=== PATIENT | male | born 1965 | race Caucasian/White ===

== ENCOUNTER 2024-12-25 23:35 | Inpatient (IN) | payer MEDICARE, MEDICAID, SELFPAY ==
--- NOTE | ~2024-12-25 | CT_ITS ---
CLINICAL HISTORY: Stroke Protocol dysarthria, dizziness CT head without contrast Comparison: CT/FL/SR - BRAIN WO W IV CONTRAST [id number] - 08/04/18 10:41 EDT Findings: Motion artifact present. There is encephalomalacia in the posterior left frontal lobe, unchanged from prior. There has been a previous left craniotomy. No intracranial hemorrhage, mass effect or midline shift. The visualized paranasal sinuses and mastoid air cells are normal. The orbits are unremarkable. No skull fracture. IMPRESSION: 1. No acute intracranial findings, within the limitations of patient motion. This document has been electronically signed by: Viral العلي MD on 12/25/2024 23:51:35
--- NOTE | ~2024-12-25 | CT_ITS ---
CLINICAL HISTORY: Stroke Protocol CT angiography head and neck with contrast. 3D Postprocessing. Comparison: CT/SR - CT HEAD FOR STROKE - 12/25/24 23:[address]/[place]/SR - BRAIN WO W IV CONTRAST [id number] - 08/04/18 10:41 EDT MR - MRI BRAIN WWO [id number] - 11/27/11 00:00 EST Findings: Aortic arch and great vessel origins are patent. There is calcification of the right carotid bulb, but no stenosis. No stenosis of the right internal carotid artery. There is a 20% stenosis of the left internal carotid artery above the carotid bulb. At the level of the carotid bulb. There is also a 20% stenosis at the carotid bulb secondary to calcified plaque. The left vertebral artery is dominant and the right vertebral artery is diminutive. Both vertebral arteries are patent. Intracranial arteries are patent. No aneurysm, dissection, or occlusion. There is an area of encephalomalacia in the posterior left frontal lobe. There is a extra-axial, probably dural-based hyperattenuating lesion which appears to have some enhancement in the area the area of encephalomalacia which measures 1.1 x 1.0 cm. The visualized thyroid gland is unremarkable. No cervical mass or fluid collection. Lung apices clear. No acute fracture. IMPRESSION: 1. 20% stenoses in the bilateral internal carotid arteries. No intracranial large vessel occlusion. 2. Hyperdense extra-axial mass with possible enhancement in the left frontal region, adjacent to the pre-existing area of encephalomalacia. Differential includes meningioma as well as other tumors versus benign dural thickening. Consider follow-up with MRI with and without contrast. This document has been electronically signed by: Viral العلي MD on 12/26/2024 00:48:06
--- NOTE | ~2024-12-25 | MR_ITS ---
CLINICAL HISTORY: Extra-axial mass MR Brain with and without gadolinium Comparison: CT/SR - CT ANGIO HEAD NECK STROKE - 12/25/24 23:[address]/[place]/SR - BRAIN WO W IV CONTRAST [id number] - 08/04/18 10:41 EDT MR - MRI BRAIN WWO [id number] - 11/27/11 00:00 EST Findings: No restricted diffusion. Best visualized on the post gadolinium sequences, there are multiple enhancing dural-based masses on the left. Reference coronal image 99 of series 17, there is an 11 mm mass with subjacent T2 signal abnormality. Reference coronal image 118, there is an 11 mm mass and a 7 mm mass medial to this. Deep to these regions, there is cystic encephalomalacia and gliosis. There is no midline shift or significant mass effect. No hydrocephalus. Orbits appear unremarkable. Paranasal sinuses demonstrate mild mucoperiosteal thickening. Impression: There are 3 small enhancing extra-axial masses along the left frontal dura as detailed above. Subjacent to these regions is cystic encephalomalacia and gliosis. The degree of this chronic change is only slightly increased from a 2012 study. Correlation with any prior treatment. This document has been electronically signed by: Farhat Lewis MD on 12/26/2024 12:35:37
--- NOTE | 2024-12-25 23:35 | ECG_ITS ---
Test Reason : STROKE PRTCL Blood Pressure : */* mmHG Vent. Rate : 111 BPM Atrial Rate : 111 BPM P-R Int : 182 ms QRS Dur : 76 ms QT Int : 394 ms P-R-T Axes : 30 55 48 degrees QTcB Int : 535 ms Poor data quality Possible Sinus tachycardia with Septal infarct , age undetermined Abnormal ECG When compared with ECG of 09-Mar-2019 15:16, Poor data quality in current ECG precludes serial comparison Referred By: Samuel Choi Electronically Signed By: ALESSANDRO KILGORE MD
[2024-12-25 23:36] VITALS: BP 148/81; PULSE 82; O2SAT 94
[2024-12-25 23:59] VITALS: BP 133/73; PULSE 82; RESP 13; TEMP 36.4; O2SAT 94
[2024-12-25] MEDS: iohexoL 350 MG/ML 100 ML INFUS..BTL 70 ML IV (23:59)
[2024-12-26] VITALS (7 sets, daily range): BP systolic 99–138; BP diastolic 54–79; PULSE 74–82; RESP 12–17; TEMP 36.4–36.8; O2SAT 93–97; BMI 39.5
[2024-12-26 00:08] LABS: Glucose, Whole Blood 187 mg/dL (60-115)
[2024-12-26 00:21] LABS: Basophils Percent Auto 0.7 % (0-2); Eosinophils Absolute Auto 0.1 X10*3/uL (0.0-0.4); Eosinophils Percent Auto 2.2 % (0-4); Hematocrit 39.2 % (42.0-52.0); Hemoglobin 13.8 g/dl (14.0-18.0); Imm Gran Abs Auto 0.02 X10*3/uL (0.00-0.03); Imm Gran Pct Auto 0.4 % (0.0-0.4); Lymphocytes Absolute Auto 2.1 X10*3/uL (1.2-4.9); Lymphocytes Percent Auto 38.3 % (20-40); MANUAL DIFF FLAG NO; Mean Corpuscular HGB Conc 35.2 g/dl (31.0-36.0); Mean Corpuscular Hemoglobin 32.7 pg (27.0-33.0); Mean Corpuscular Volume 92.9 fL (80.0-98.0); Mean Platelet Volume 9.8 fL (9.4-12.4); Monocytes Absolute Auto 0.4 X10*3/uL (0.1-1.2); Monocytes Percent Auto 7.1 % (2-11); Neutrophils Absolute Auto 2.8 x10*3/uL (2.0-8.3); Neutrophils Percent Auto 51.3 % (45-73); Platelet Count 229 X10*3/uL (160-400); Red Blood Count 4.22 X10*6/uL (4.60-5.80); Red Cell Distribution Width 12.4 % (11.0-16.0); White Blood Count 5.5 X10*3/uL (4.8-10.8)
--- NOTE | 2024-12-26 00:24 | ED.NEUROSD ---
HPI - Neuro Symptoms/Deficit General Chief Complaint: Stroke Stated Complaint: stroke alert, sudden onset dizzy, numbness Source: patient and EMS Mode of arrival: EMS Limitations: no limitations History of Present Illness ED Provider: HPI Narrative: Patient is 59 years old with history of DVT on Eliquis history of alcohol abuse, brain tumor status post resection 22 years ago, seizures disorder on Dilantin and carbamazepine came from [facility] for frequent fall and sudden onset of dizziness which started 1929 associated with garbled speech no other focal deficits patient has says since 11/03 patient has been unsteady and been falling more often but today got worse staff noticed patient was has a garbled speech patient does get seizure almost once or twice a month Related Data Allergies Allergy/AdvReac Type Severity Reaction Status Date / Time No Known Allergies Allergy Verified 12/26/24 00:01 Review of Systems Review of Systems: Yes all other systems are reviewed and are negative PMFSH Past Medical History Medical History DVT (deep venous thrombosis) Major depressive disorder Epilepsy Alcohol abuse Social History Social History Patient Tobacco Use Status: Current everyday Tobacco user Smoked in Last 30 Days: Yes Use of substances other than those prescribed or required for medical reasons: No Advance Directives: No Advance Directives Information Provided: Yes Nutrition Risks: No Nutritional Risk Physical Exam Vital Signs: Vital Signs: Last Vital Signs Temp 98.3 F 12/26/24 06:08 Pulse 75 12/26/24 06:08 Resp 12 12/26/24 06:08 BP 125/73 12/26/24 06:08 Pulse Ox 97 12/26/24 06:08 O2 Del Method Room Air 12/26/24 06:08 BMI result Body Mass Index 39.5 Appearance: Alert. Oriented X3. No acute distress. Eyes: PERRLA, + Nystagmus ENT: Pharynx normal. Oral Mucosa moist Neck: Normal inspection. Neck supple. CVS: Normal heart rate and rhythm. Pulses normal. Respiratory: No respiratory distress. Equal air entry bilateral, no wheezing/rales/rhonchi Abdomen: Soft and nontender. Bowel sounds are present, no mass palpable, no CVA tenderness Skin: Skin warm and dry. Normal skin color. Normal skin turgor. Extremities: No lower extremity edema. No calf tenderness Neuro: Oriented X 3. No motor deficit. No sensory deficit., cranial nerves II-XII intact intention tremor++ Medications Administered Discontinued Medications Generic Name Dose Route Start Last Admin Trade Name Charla PRN Reason Stop Dose Admin Lactated Ringer's 500 mls @ 500 mls/hr 12/26/24 02:45 12/26/24 06:10 Lr IV 12/26/24 03:44 Infused .Q1H OTONIEL Infusion Thiamine HCl 200 mg/ Sodium 102 mls @ 204 mls/hr 12/26/24 02:43 12/26/24 04:55 Chloride IV 12/26/24 03:12 Infused ONCE ONE Infusion Iohexol 70 ml 12/25/24 23:58 12/25/24 23:59 Iohexol 350 Mg/Ml 100 Ml Infus..Btl IV 12/25/24 23:59 70 ml ONCE ONE Administration Medical Decision Making Medical Decision Making [facility] Narrative: Patient with dizziness unsteady gait nystagmus noted to have elevated Dilantin level of 36.6 likely the cause for unsteady gait and frequent falls CT head and CTA head and neck negative for acute will admit patient for Dilantin toxicity Differential Diagnosis Differential Diagnoses: The differential diagnosis associated with the presentation includes Dilantin toxicity/CVA/cerebellar stroke/posterior circulation stroke Admission/Observation Consideration of admission/observation: Escalation of care including admission/observation considered Consult Healthcare Provider Management of the patient was discussed with: Hospitalist Lab Data [facility] Lab Attestation statement: I reviewed the patient's lab results. 12/26/24 06:00 12/26/24 06:00 Labs: Lab Results 12/25/24 12/26/24 12/26/24 Range/Units 23:58 00:15 00:16 WBC 5.5 (4.8-10.8) X10*3/uL RBC 4.22 L (4.60-5.80) X10*6/uL Hgb 13.8 L (14.0-18.0) g/dl Hct 39.2 L (42.0-52.0) % MCV 92.9 (80.0-98.0) fL MCH 32.7 (27.0-33.0) pg MCHC 35.2 (31.0-36.0) g/dl RDW 12.4 (11.0-16.0) % Plt Count 229 (160-400) X10*3/uL MPV 9.8 (9.4-12.4) fL Immature Gran % (Auto) 0.4 (0.0-0.4) % Neut % (Auto) 51.3 (45-73) % Lymph % (Auto) 38.3 (20-40) % [place] % (Auto) 7.1 (2-11) % Eos % (Auto) 2.2 (0-4) % Baso % (Auto) 0.7 (0-2) % Lymph # (Auto) 2.1 (1.2-4.9) X10*3/uL [place] # (Auto) 0.4 (0.1-1.2) X10*3/uL Eos # (Auto) 0.1 (0.0-0.4) X10*3/uL Baso # (Auto) 0.0 (0.0-0.2) X10*3/uL Abs Immat Gran (auto) 0.02 (0.00-0.03) X10*3/uL Absolute Neuts (auto) 2.8 (2.0-8.3) x10*3/uL Absolute Nucleated RBC 0.000 (0.0-0.012) X10*3/uL Nucleated RBC % (auto) 0.0 (0.0-0.2) /100WBC PT 10.7 L (10.9-12.4) SEC INR 0.9 (0.9-1.1) APTT 31.3 (26.0-36.8) SEC Sodium 138 (135-145) mmol/L Potassium 3.9 (3.3-5.1) mmol/L Chloride 107 (96-108) mmol/L Carbon Dioxide 21 L (22-29) mmol/L Anion Gap 14 (12-20) BUN 13 (9-16) mg/dL Creatinine 0.68 (0.5-1.4) mg/dL Estim Creat Clear Calc 152.2 Estimated GFR > 60 POC Glucose 187 H (60-115) mg/dL Random Glucose 174 H (60-115) mg/dL Calcium 8.6 (8.4-10.2) mg/dL Troponin I High Sens < 2.7 (<3.5-35.0) ng/L Triglycerides 96 (<150) mg/dL Cholesterol 165 (<200) mg/dL LDL Cholesterol, Calc 90 (<100) mg/dL HDL Cholesterol 56 (>40) mg/dL Phenytoin (10.0-20.0) ug/mL Carbamazepine (5.0-12.0) mcg/mL Influenza Type A (PCR) NEGATIVE (Negative) Influenza Type B (PCR) NEGATIVE (Negative) RSV RNA Qual (PCR) NEGATIVE (Negative) SARS-CoV-2 RNA (RT-PCR) NEGATIVE (Negative) 12/26/24 Range/Units 00:45 WBC (4.8-10.8) X10*3/uL RBC (4.60-5.80) X10*6/uL Hgb (14.0-18.0) g/dl Hct (42.0-52.0) % MCV (80.0-98.0) fL MCH (27.0-33.0) pg MCHC (31.0-36.0) g/dl RDW (11.0-16.0) % Plt Count (160-400) X10*3/uL MPV (9.4-12.4) fL Immature Gran % (Auto) (0.0-0.4) % Neut % (Auto) (45-73) % Lymph % (Auto) (20-40) % [place] % (Auto) (2-11) % Eos % (Auto) (0-4) % Baso % (Auto) (0-2) % Lymph # (Auto) (1.2-4.9) X10*3/uL [place] # (Auto) (0.1-1.2) X10*3/uL Eos # (Auto) (0.0-0.4) X10*3/uL Baso # (Auto) (0.0-0.2) X10*3/uL Abs Immat Gran (auto) (0.00-0.03) X10*3/uL Absolute Neuts (auto) (2.0-8.3) x10*3/uL Absolute Nucleated RBC (0.0-0.012) X10*3/uL Nucleated RBC % (auto) (0.0-0.2) /100WBC PT (10.9-12.4) SEC INR (0.9-1.1) APTT (26.0-36.8) SEC Sodium (135-145) mmol/L Potassium (3.3-5.1) mmol/L Chloride (96-108) mmol/L Carbon Dioxide (22-29) mmol/L Anion Gap (12-20) BUN (9-16) mg/dL Creatinine (0.5-1.4) mg/dL Estim Creat Clear Calc Estimated GFR POC Glucose (60-115) mg/dL Random Glucose (60-115) mg/dL Calcium (8.4-10.2) mg/dL Troponin I High Sens (<3.5-35.0) ng/L Triglycerides (<150) mg/dL Cholesterol (<200) mg/dL LDL Cholesterol, Calc (<100) mg/dL HDL Cholesterol (>40) mg/dL Phenytoin 36.6 H* (10.0-20.0) ug/mL Carbamazepine 5.0 (5.0-12.0) mcg/mL Influenza Type A (PCR) (Negative) Influenza Type B (PCR) (Negative) RSV RNA Qual (PCR) (Negative) SARS-CoV-2 RNA (RT-PCR) (Negative) Independent Interpretation I performed an independent interpretation of an: EKG and CT Scan Interpretation: Sinus tachycardia with premature SVC poor progression of R-wave ventricular rate of [address]-T no acute ischemia Radiology Impression Discussion of test interpretation with radiology: I have reviewed the radiologist's reading. Radiologist Impression: [place] [id number] CT Scan Report Signed Patient: Cortez Lama MR#: [id number] : 1965 Acct:[id number] Age/Sex: 59 / M ADM Date: 12/25/24 Loc: .ED Attending Dr: Ordering Physician: Samuel Choi MD Date of Service: 12/25/24 Procedure(s): CT angio head neck STROKE Accession Number(s): [id number] cc: Samuel Choi MD~ Report Number: [id number]: Total DLP = 747.00 mGy-cm CLINICAL HISTORY: Stroke Protocol CT angiography head and neck with contrast. 3D Postprocessing. Comparison: CT/SR - CT HEAD FOR STROKE - 12/25/24 23:[address]/[place]/SR - BRAIN WO W IV CONTRAST [id number] - 08/04/18 10:41 EDT MR - MRI BRAIN WWO [id number] - 11/27/11 00:00 EST Findings: Aortic arch and great vessel origins are patent. There is calcification of the right carotid bulb, but no stenosis. No stenosis of the right internal carotid artery. There is a 20% stenosis of the left internal carotid artery above the carotid bulb. At the level of the carotid bulb. There is also a 20% stenosis at the carotid bulb secondary to calcified plaque. The left vertebral artery is dominant and the right vertebral artery is diminutive. Both vertebral arteries are patent. Intracranial arteries are patent. No aneurysm, dissection, or occlusion. There is an area of encephalomalacia in the posterior left frontal lobe. There is a extra-axial, probably dural-based hyperattenuating lesion which appears to have some enhancement in the area the area of encephalomalacia which measures 1.1 x 1.0 cm. The visualized thyroid gland is unremarkable. No cervical mass or fluid collection. Lung apices clear. No acute fracture. IMPRESSION: 1. 20% stenoses in the bilateral internal carotid arteries. No intracranial large vessel occlusion. 2. Hyperdense extra-axial mass with possible enhancement in the left frontal region, adjacent to the pre-existing area of encephalomalacia. Differential includes meningioma as well as other tumors versus benign dural thickening. Consider follow-up with MRI with and without contrast. This document has been electronically signed by: Viral العلي MD on 12/26/2024 00:48:06 NIH Stroke Scale Internal: Initial- Upon Arrival Level of Consciousness: Alert Level of Consciousness Questions: Answers both questions correctly Level of Consciousness Commands: Performs both tasks correctly Best Gaze: Normal Visual: No visual loss Facial Palsy: Normal Motor Arm (Right): No drift Motor Arm (Left): No drift Motor Leg (Right): No drift Motor Leg (Left): No drift Limb Ataxia: Absent Sensory: Normal Best Language: No aphasia Dysarthia: Normal Extinction and Inattention: No abnormality Score: 0 Critical Care Time Critical Care Time Critical Care Time: Yes Total Critical Care Time: 60 Attestation: The patient was critically ill with a high probability of imminent or life threatening deterioration. I spent greater than 65???minutes of discontinuous time evaluating the patient,delivering critical care at the bedside, discussing and evaluating pertinent data with consultants. Critical care time does not include time spent performing separately billable procedures or teaching. Total time spent performing critical care was 60???minutes. Discharge Plan Discharge Clinical Impression: Dilantin toxicity, Ataxia Patient Disposition: Admitted As Inpatient
--- NOTE | 2024-12-26 00:25 | MHC.EDTECH ---
Stroke INR not needed , per provider
[2024-12-26 00:27] LABS: INTERNATIONAL NORM RATIO 0.9 (0.9-1.1); Prothrombin Time 10.7 SEC (10.9-12.4)
[2024-12-26 00:30] LABS: Partial Thromboplastin Time 31.3 SEC (26.0-36.8)
[2024-12-26 00:36] LABS: Stroke Lab Use COMPLETE
[2024-12-26 00:37] LABS: Anion Gap 14 (12-20); Blood Urea Nitrogen 13 mg/dL (9-16); Calcium 8.6 mg/dL (8.4-10.2); Carbon Dioxide 21 mmol/L (22-29); Chloride 107 mmol/L (96-108); Cholesterol 165 mg/dL (<200); Creatinine Clr Calc Pharmacy 152.2; Estimated Glomerular Filt Rate > 60; Glucose Random 174 mg/dL (60-115); HDL Cholesterol 56 mg/dL (>40); LDL Cholesterol Calculated 90 mg/dL (<100); Potassium 3.9 mmol/L (3.3-5.1); Sodium 138 mmol/L (135-145); Triglycerides 96 mg/dL (<150)
[2024-12-26 00:43] LABS: Troponin-I High Sensitivity < 2.7 ng/L (<3.5-35.0)
[2024-12-26 00:58] LABS: Influenza A PCR NEGATIVE (Negative); Influenza B PCR NEGATIVE (Negative); Resp Syncy Virus RNA Qual PCR NEGATIVE (Negative); SARS COV2 PCR INHOUSE NEGATIVE (Negative)
[2024-12-26 01:19] LABS: Phenytoin Dilantin 36.6 ug/mL (10.0-20.0)
--- NOTE | 2024-12-26 02:40 | P.HPHOSP_ITS ---
History of Present Illness Date of Service: 12/26/24 Chief Complaint: Gait difficulty This is a 59-year-old male with pertinent history of DVT on Eliquis, seizure disorder, mood disorder, alcohol use disorder, brain tumor status post resection 22 years ago who presents from [facility] for evaluation of difficulty with gait. Patient states he is having balance issues that have been ongoing since 2023. Patient has been having frequent falls due to the same. He has been unsteady on his feet. On the day of presentation, there was question of dizziness and maybe garbled speech and patient was sent to the ER. Does have a history of seizures. No fever, chills, chest pain, palpitations, shortness of breath, abdominal pain, changes in urinary or bowel habits. Denies nausea, vomiting. In the emergency department, Dilantin level found to be high. CT head without any acute abnormality Review of Systems 2 Constitutional: Constitutional: Reports fatigue and Reports malaise Cardiovascular: Cardiovascular: Reports no additional cardiovascular complaints Respiratory: Respiratory: Reports no additional respiratory complaints Gastrointestinal: Gastrointestinal: Reports no additional gastrointestinal complaints Genitourinary: Genitourinary: Reports no additional male genitourinary complaints Musculoskeletal: Musculoskeletal: Reports abnormal gait Neurologic: Reports abnormal gait Endocrine: Endocrine: Reports fatigue PMFSH Medical History DVT (deep venous thrombosis) Major depressive disorder Epilepsy Alcohol abuse Pertinent family history: No family history of early CAD Social History Patient Tobacco Use Status: Current everyday Tobacco user Smoked in Last 30 Days: Yes Use of substances other than those prescribed or required for medical reasons: No Advance Directives: No Advance Directives Information Provided: Yes Nutrition Risks: No Nutritional Risk Meds Allergies Allergy/AdvReac Type Severity Reaction Status Date / Time No Known Allergies Allergy Verified 12/26/24 00:01 Active Medications: Current Medications Acetaminophen (Acetaminophen 325 Mg Tablet) 650 mg PO Q6H PRN PRN Reason: Pain, Mild 1-3,fever,headache Calcium Carbonate (Calcium Carbonate 750 Mg Tab.Chew) 750 mg PO Q4H PRN PRN Reason: Heartburn Magnesium Hydroxide (Milk Of Magnesia 30 Ml Oral.Susp) 30 ml PO DAILY PRN PRN Reason: Constipation Melatonin (Melatonin 3 Mg Tablet) 6 mg PO BEDTIME PRN PRN Reason: Insomnia Ondansetron HCl (Ondansetron Hcl 4 Mg/2 Ml Vial) 4 mg IVPUSH Q8H PRN PRN Reason: Nausea and Vomiting Sodium Chloride (0.9 % Sodium Chloride Flush 3 Ml Syringe) 3 ml IVFLUSH QSHIFT OTONIEL Physical Exam 2 Vital Signs and Narrative: Vital Signs: Last Vital Signs Temp 97.5 F 12/26/24 01:34 Pulse 78 12/26/24 01:34 Resp 14 12/26/24 01:34 BP 138/75 12/26/24 01:34 Pulse Ox 95 12/26/24 01:34 O2 Del Method Room Air 12/26/24 01:34 BMI result Body Mass Index 39.5 Middle-aged male lying in bed in no distress Neck supple, no JVD Regular rate and rhythm, S1-S2 heard Regular breath sounds bilaterally, no wheezing or crackles appreciated Abdomen soft nontender, no guarding, no rigidity Patient is awake, alert and oriented x3, nystagmus seen, intention tremor seen, patient did not want to ambulate as he was lethargic Psych: Normal mood No pedal edema Results Labs 12/26/24 00:15 12/26/24 00:15 Labs: Laboratory Results - last 24 hr 12/25/24 12/26/24 12/26/24 23:58 00:15 00:16 MCV 92.9 MCH 32.7 MCHC 35.2 RDW 12.4 Plt Count 229 MPV 9.8 Immature Gran % (Auto) 0.4 Neut % (Auto) 51.3 Lymph % (Auto) 38.3 [place] % (Auto) 7.1 Eos % (Auto) 2.2 Baso % (Auto) 0.7 Lymph # (Auto) 2.1 [place] # (Auto) 0.4 Eos # (Auto) 0.1 Baso # (Auto) 0.0 Abs Immat Gran (auto) 0.02 Absolute Neuts (auto) 2.8 Absolute Nucleated RBC 0.000 Nucleated RBC % (auto) 0.0 PT 10.7 L INR 0.9 APTT 31.3 Anion Gap 14 Estim Creat Clear Calc 152.2 Estimated GFR > 60 POC Glucose 187 H Random Glucose 174 H Calcium 8.6 Triglycerides 96 Cholesterol 165 LDL Cholesterol, Calc 90 HDL Cholesterol 56 Phenytoin Carbamazepine Influenza Type A (PCR) NEGATIVE Influenza Type B (PCR) NEGATIVE RSV RNA Qual (PCR) NEGATIVE SARS-CoV-2 RNA (RT-PCR) NEGATIVE 12/26/24 00:45 MCV MCH MCHC RDW Plt Count MPV Immature Gran % (Auto) Neut % (Auto) Lymph % (Auto) [place] % (Auto) Eos % (Auto) Baso % (Auto) Lymph # (Auto) [place] # (Auto) Eos # (Auto) Baso # (Auto) Abs Immat Gran (auto) Absolute Neuts (auto) Absolute Nucleated RBC Nucleated RBC % (auto) PT INR APTT Anion Gap Estim Creat Clear Calc Estimated GFR POC Glucose Random Glucose Calcium Triglycerides Cholesterol LDL Cholesterol, Calc HDL Cholesterol Phenytoin 36.6 H* Carbamazepine 5.0 Influenza Type A (PCR) Influenza Type B (PCR) RSV RNA Qual (PCR) SARS-CoV-2 RNA (RT-PCR) Assessment and Plan (1) Ataxia: Status: Acute (2) Dilantin toxicity: Status: Acute Plan This is a 59-year-old male with pertinent history of DVT on Eliquis, seizure disorder, mood disorder, alcohol use disorder, brain tumor status post resection 22 years ago who presents from [facility] for evaluation of difficulty with gait. #. Ataxia due to Dilantin toxicity: Will admit patient with cardiac monitoring. Supportive care. Repeat phenytoin levels pending. Consulted Neurology, appreciate assistance. Also giving IV thiamine and obtaining B12 levels #. Hyperdense extra-axial mass on imaging: Obtaining MRI with and without contrast to delineate underlying anatomy #. History of DVT: On Eliquis #. Seizure disorder: Hold phenytoin. Resume carbamazepine. Appreciate neurology #. Mood disorder: Continue home mood stabilizers Med rec pending DVT prophylaxis: Eliquis DNR/DNI. Discussed with patient at bedside Admit as inpatient and will require two night minimum hospital stay for monitoring of phenytoin levels (as above), which is not possible in a lesser acute setting. Neurology consult pending Quality Stroke Does the patient have a stroke diagnosis?: No VTE Prior VTE?: No VTE Risk Level:: Medical - moderate - high VTE Device Contraindication: Treatment Not Indicated VTE Drug Contraindication: N/A - Med Ordered
[2024-12-26] MEDS: Thiamine HCL 200 MG in 0.9 % Sodium Chloride 100 ML 204 MG IV (04:05)
[2024-12-26] MEDS: Lactated Ringers 500 ML IV (04:55)
[2024-12-26 06:34] LABS: MANUAL DIFF FLAG NO
[2024-12-26 06:39] LABS: Basophils Percent Auto 0.6 % (0-2); Eosinophils Absolute Auto 0.2 X10*3/uL (0.0-0.4); Eosinophils Percent Auto 2.8 % (0-4); Hematocrit 38.2 % (42.0-52.0); Hemoglobin 13.1 g/dl (14.0-18.0); Imm Gran Abs Auto 0.03 X10*3/uL (0.00-0.03); Imm Gran Pct Auto 0.6 % (0.0-0.4); Lymphocytes Absolute Auto 2.7 X10*3/uL (1.2-4.9); Mean Corpuscular HGB Conc 34.3 g/dl (31.0-36.0); Mean Corpuscular Hemoglobin 32.3 pg (27.0-33.0); Mean Corpuscular Volume 94.3 fL (80.0-98.0); Mean Platelet Volume 10.5 fL (9.4-12.4); Monocytes Absolute Auto 0.5 X10*3/uL (0.1-1.2); Monocytes Percent Auto 8.7 % (2-11); Neutrophils Percent Auto 37.3 % (45-73); Platelet Count 221 X10*3/uL (160-400); Red Blood Count 4.05 X10*6/uL (4.60-5.80); Red Cell Distribution Width 12.3 % (11.0-16.0); White Blood Count 5.4 X10*3/uL (4.8-10.8)
[2024-12-26 06:52] LABS: Alanine Aminotransferase 40 U/L (0-40); Albumin Level 3.4 g/dL (3.5-5.0); Alkaline Phosphatase 86 U/L (39-117); Anion Gap 13 (12-20); Aspartate Amino Transferase 20 U/L (5-37); Bilirubin Total 0.2 mg/dL (0.0-1.0); Blood Urea Nitrogen 11 mg/dL (9-16); Calcium 8.4 mg/dL (8.4-10.2); Carbon Dioxide 22 mmol/L (22-29); Chloride 111 mmol/L (96-108); Creatinine Clr Calc Pharmacy 159.2; Estimated Glomerular Filt Rate > 60; Glucose Random 142 mg/dL (60-115); Phenytoin Dilantin 32.7 ug/mL (10.0-20.0); Potassium 3.7 mmol/L (3.3-5.1); Sodium 142 mmol/L (135-145)
[2024-12-26 07:26] LABS: Folate 12.5 ng/mL (> or = 4.0); Vitamin B12 274 pg/mL (200-900)
--- NOTE | 2024-12-26 08:32 | PC.NURSE ---
This RN did call [facility] to notify them of his admission and that his belongings are secured when he returns. Spoke to his nurse and his things are fine and he is LTC.
--- NOTE | 2024-12-26 09:28 | MHC.CM.PN ---
Addendum entered by Laura Grover 12/27/24 08:28: COPY OF HCP RECEIVED AND NOW ON FILE Original Note: IMM DELIVERED PT IS A LTC RESIDENT AT [facility]. PT USES [facility] [place] FOR MOBILITY. PT WISHES TO RETURN TO [facility] ON DC. RETURN REFERRAL SENT WITH REQUEST FOR COPY OF HCP. PT WILL NEED BLS TRANSPORT.. CM WILL CONTINUE TO FOLLOW FOR ANY CHANGE TO DC PLAN/NEEDS.
--- NOTE | 2024-12-26 10:18 | PHA.MEDREC ---
Addendum entered by Ailyn Laird RPh 12/26/24 10:29: med rec reviewed by margot Original Note: Pharmacy Consult ? Medication Reconciliation Pharmacy has completed the medication reconciliation. [facility].
[2024-12-26] MEDS: gadobutroL 10 ML VIAL IVPUSH (10:19)
[2024-12-26] MEDS: Thiamine HCL 100 MG in 0.9 % Sodium Chloride 100 ML 202 MG IV (10:26)
[2024-12-26] MEDS: 0.9 % Sodium Chloride Flush 3 ML SYRINGE IVFLUSH ×2 (10:27→17:56)
[2024-12-26] MEDS: dexAMETHasone 4 MG TABLET PO ×2 (11:13→20:24)
[2024-12-26] MEDS: levETIRAcetam 500 MG TABLET 1500 MG PO ×2 (11:15→20:24)
[2024-12-26] MEDS: carBAMazepine 200 MG TABLET 600 MG PO ×2 (11:15→20:24)
[2024-12-26] MEDS: Gabapentin 100 MG CAPSULE PO ×3 (11:15→20:25)
--- NOTE | 2024-12-26 13:08 | PM.EVENT ---
Event Note Date of Service: 12/26/24 Event Note: Day hospitalist update S: c/o dysequilibrium, dizziness O: Temp Pulse Resp BP Pulse Ox O2 Del Method 98.3 F 74 14 120/79 97 Room Air 12/26/24 06:08 12/26/24 07:32 12/26/24 07:32 12/26/24 07:32 12/26/24 06:08 12/26/24 06:08 Gen: in no acute distress HEENT: sclera anicteric, moist mucus membranes Neck: supple Lungs: clear to auscultation bilaterally Heart: regular rate and rhythm, no murmurs Abd: soft, non-tender, non-distended Ext: no edema Skin: warm/well-perfused Neuro: alert and oriented x3, tremor Psych: appropriate affect MRI brain with and without contrast 12/26: There are 3 small enhancing extra-axial masses along the left frontal dura as detailed above. Subjacent to these regions is cystic encephalomalacia and gliosis. The degree of this chronic change is only slightly increased from a 2012 study. Correlation with any prior treatment. A/P: d1 59yo M with seizures s/p resection of L frontoparietal meningioma in 2003 , mood disorder, hx DVT, sent in from Rehab for gait difficulty, found to have ataxia due to phenytoin toxicity phenytoin toxicity - supportive care, Neurology consult pending, repeat level in AM intracranial masses - continue dexamethasone, Neuro consult pending seizure disorder - continue gabapentin, carbamazepine, levetiracetam hx DVT - apixaban mood disorder - duloxtine, paroxetine, trazodone dispo - eventual return to LTC In my clinical judgment, the patient requires continued inpatient hospitalization for the following reasons: phenytoin toxicity, neurologic consultation Time Spent With Patient Time: Total time managing care of this patient today ____ minutes.
--- NOTE | 2024-12-26 13:48 | P.CNNE_ITS ---
History of Present Illness Data of Consult Service Date: 12/26/24 Primary Care Provider: None Physician HPI 59 years old man with epilepsy probably comprising complex partial and secondarily generalized seizures. More than 20 years ago he had left frontal craniotomy for meningioma resection and seizures probably started after that or around that time. He has been seeing Dr. Brito and reviewing his notes, it was mentioned that he suffered from the seizures and also nonepileptic spells. He has been taking multiple antiepileptics including relatively high dose of Dilantin and was admitted in hospital with unsteadiness and falling and toxic Dilantin level. Presently, he was residing in a facility. He said that his last seizure was 2 months ago but details were unclear. Review of Systems 2 Review of Systems: Unsteadiness and falling during last weeks to months. [facility] Past Medical History Medical History DVT (deep venous thrombosis) Major depressive disorder Epilepsy Alcohol abuse Social History Social History Patient Tobacco Use Status: Current everyday Tobacco user Smoked in Last 30 Days: Yes Use of substances other than those prescribed or required for medical reasons: No Advance Directives: No Advance Directives Information Provided: Yes Nutrition Risks: No Nutritional Risk service: No Meds Allergies Allergy/AdvReac Type Severity Reaction Status Date / Time No Known Allergies Allergy Verified 12/26/24 00:01 Active Medications: Current Medications Acetaminophen (Acetaminophen 325 Mg Tablet) 650 mg PO Q6H PRN PRN Reason: Pain, Mild 1-3,fever,headache Apixaban (Apixaban 5 Mg Tablet) 5 mg PO BID [facility] Bisacodyl (Bisacodyl 10 Mg Supp.Rect) 10 mg IN DAILY PRN PRN Reason: Constipation Calcium Carbonate (Calcium Carbonate 750 Mg Tab.Chew) 750 mg PO Q4H PRN PRN Reason: Heartburn Carbamazepine (Carbamazepine 200 Mg Tablet) 600 mg PO BID [facility] Last Admin: 12/26/24 11:15 Dose: 600 mg Dexamethasone (Dexamethasone 4 Mg Tablet) 4 mg PO BID [facility] Last Admin: 12/26/24 11:13 Dose: 4 mg Duloxetine HCl (Duloxetine Hcl 20 Mg Capsule.) 20 mg PO BID [facility] Folic Acid (Folic Acid 1 Mg Tablet) 1 mg PO DAILY [facility] Gabapentin (Gabapentin 100 Mg Capsule) 100 mg PO TID [facility] Last Admin: 12/26/24 11:15 Dose: 100 mg Thiamine HCl 100 mg/ Sodium (Chloride) 101 mls @ 202 mls/hr IV DAILY [facility] Last Admin: 12/26/24 10:26 Dose: 202 mls/hr Levetiracetam (Levetiracetam 500 Mg Tablet) 1,500 mg PO BID [facility] Last Admin: 12/26/24 11:15 Dose: 1,500 mg Magnesium Hydroxide (Milk Of Magnesia 30 Ml Oral.Susp) 30 ml PO DAILY PRN PRN Reason: Constipation Melatonin (Melatonin 3 Mg Tablet) 6 mg PO BEDTIME PRN PRN Reason: Insomnia Multivitamins/Vitamin C (Multivitamin Tablet) 1 tab PO DAILY [facility] Ondansetron HCl (Ondansetron Hcl 4 Mg/2 Ml Vial) 4 mg IVPUSH Q8H PRN PRN Reason: Nausea and Vomiting Paroxetine HCl (Paroxetine Hcl 20 Mg Tablet) 20 mg PO DAILY [facility] Sodium Biphosphate/Sodium Phosphate (Sodium Phosphate,Mahnomen-Dibasic 133 Ml Enema) 118 ml IN DAILY PRN PRN Reason: Constipation Sodium Chloride (0.9 % Sodium Chloride Flush 3 Ml Syringe) 3 ml IVFLUSH QSHIFT [facility] Last Admin: 12/26/24 10:27 Dose: 3 ml Trazodone HCl (Trazodone Hcl 25 Mg Halftab) 25 mg PO BEDTIME [facility] Home Medications ?Medication ?Instructions ?Recorded ?Confirmed ?Last Taken ?Type acetaminophen 325 mg tablet 650 mg PO Q6H PRN pain or fever 12/26/24 12/26/24 Unknown History apixaban 5 mg tablet (Eliquis) 5 mg PO BID 12/26/24 12/26/24 Unknown History bisacodyl 10 mg rectal suppository 10 mg IN DAILY PRN Constipation 12/26/24 12/26/24 Unknown History carbamazepine 200 mg tablet 600 mg PO BID 12/26/24 12/26/24 Unknown History dexamethasone 4 mg tablet 4 mg PO BID 12/26/24 12/26/24 Unknown History duloxetine 20 mg capsule,delayed 20 mg PO BID 12/26/24 12/26/24 Unknown History release folic acid 1 mg tablet 1 mg PO DAILY 12/26/24 12/26/24 Unknown History gabapentin 100 mg capsule 100 mg PO TID 12/26/24 12/26/24 Unknown History levetiracetam 750 mg tablet 1,500 mg PO BID 12/26/24 12/26/24 Unknown History magnesium hydroxide 400 mg/5 mL 30 ml PO DAILY PRN Constipation 12/26/24 12/26/24 Unknown History oral suspension (Milk of Magnesia) multivitamin 1 tab PO DAILY 12/26/24 12/26/24 Unknown History paroxetine HCl 20 mg tablet 20 mg PO DAILY 12/26/24 12/26/24 Unknown History phenytoin sodium extended 100 mg 400 mg PO BID 12/26/24 12/26/24 Unknown History capsule sodium phosphates 19 gram-7 118 ml IN DAILY PRN Constipation 12/26/24 12/26/24 Unknown History gram/118 mL enema (Fleet Enema) thiamine HCl (vitamin B1) 100 mg 300 mg PO DAILY 12/26/24 12/26/24 Unknown History tablet trazodone 50 mg tablet 25 mg PO BEDTIME 12/26/24 12/26/24 Unknown History Physical Exam 2 Vital Signs: Vital Signs: Last Vital Signs Temp 98.3 F 12/26/24 06:08 Pulse 74 12/26/24 07:32 Resp 14 12/26/24 07:32 BP 120/79 12/26/24 07:32 Pulse Ox 97 12/26/24 06:08 O2 Del Method Room Air 12/26/24 06:08 BMI result Body Mass Index 39.5 Neuro: Other: He is alert and awake with normal spontaneity of speech fluency comprehension and affect. Face is symmetrical. Visual edwards are full. Minimal nystagmus is noted and horizontal gaze. Yobs-ma-eqdtycgh ataxia is noted in eoxwao-zi-oxty testing. Deep tendon reflexes are absent with flexor plantars. Speech is normal. Results Labs 12/26/24 06:00 12/26/24 06:00 Labs: Short CBC 12/26/24 12/26/24 Range/Units 00:15 06:00 WBC 5.5 5.4 (4.8-10.8) X10*3/uL Hgb 13.8 L 13.1 L (14.0-18.0) g/dl Hct 39.2 L 38.2 L (42.0-52.0) % Plt Count 229 221 (160-400) X10*3/uL BMP 12/26/24 12/26/24 00:15 06:00 Sodium 138 142 Potassium 3.9 3.7 Chloride 107 111 H Carbon Dioxide 21 L 22 BUN 13 11 Creatinine 0.68 0.65 Calcium 8.6 8.4 Liver Function 12/26/24 Range/Units 06:00 Total Bilirubin 0.2 (0.0-1.0) mg/dL AST 20 (5-37) U/L ALT 40 (0-40) U/L Alkaline Phosphatase 86 (39-117) U/L Albumin 3.4 L (3.5-5.0) g/dL Noncontrast head CT revealed evidence of left frontal craniotomy and underlying encephalomalacia. Mild cerebellar atrophy is noted. CTA revealed left frontal hyperdense lesion, which was investigated with an MRI of brain with and without contrast. It revealed a small area of hyperintensity, extra-axial, close to where he had surgery, probably recurrent meningioma. Assessment and Plan (1) Toxic metabolic encephalopathy: Status: Acute 59 years old man probably with epilepsy comprising complex partial and secondarily generalized seizures resulting from left frontal encephalomalacia from surgical decompression of meningioma more than 2 decades ago. He carried diagnosis of these seizures but also of nonepileptic spells. With that history, he was managed with multiple antiepileptics including high dose of Dilantin, which has resulted in quite toxic level of this drug. Pharmacokinetics of Dilantin are tricky and sometime difficult to manage for a physician not use to it. Ideally I would avoid this medicine but I would leave that decision to his neurologist. For now, I would hold this drug and recheck level in couple of days. Target Dilantin level for him, with slightly low albumin level, not more than 15. This probably can be achieved with 4-500 mg of Dilantin a day. Once his level is in that range, I would start with 200 mg twice a day and would check in a week time. (2) Meningioma: Status: Acute This small lesion is probably meningioma recurring in the same area. His previous imaging was not available and I am not sure when that was done. At this time, follow-up MRI is recommended in 6-12 months' time depending when the previous imaging was done. Surgical intervention or consultation is not needed at this time. Procedures Date of Service Date of Service: 12/26/24
[2024-12-26] MEDS: Apixaban 5 MG TABLET PO (20:24)
[2024-12-26] MEDS: DULoxetine HCl 20 MG CAPSULE.DR PO (20:24)
[2024-12-26] MEDS: traZODone HCL 25 MG HALFTAB PO (20:25)
--- NOTE | 2024-12-27 03:59 | PC.NURSE ---
patient awake, ambulates with slow gait to the bathroom with walker.
[2024-12-27 04:00] VITALS: BP 147/52; PULSE 76; RESP 20; TEMP 36.4; O2SAT 97
[2024-12-27 06:52] LABS: Anion Gap 13 (12-20); Blood Urea Nitrogen 14 mg/dL (9-16); Calcium 8.6 mg/dL (8.4-10.2); Carbon Dioxide 23 mmol/L (22-29); Chloride 111 mmol/L (96-108); Creatinine Clr Calc Pharmacy 152.2; Estimated Glomerular Filt Rate > 60; Glucose Random 117 mg/dL (60-115); Potassium 3.9 mmol/L (3.3-5.1); Sodium 143 mmol/L (135-145)
[2024-12-27 06:57] LABS: Phenytoin Dilantin 30.7 ug/mL (10.0-20.0)
[2024-12-27] MEDS: 0.9 % Sodium Chloride Flush 3 ML SYRINGE IVFLUSH (08:06)
[2024-12-27] MEDS: Thiamine HCL 100 MG in 0.9 % Sodium Chloride 100 ML 202 MG IV (08:07)
[2024-12-27] MEDS: dexAMETHasone 4 MG TABLET PO (08:08)
[2024-12-27] MEDS: Multivitamin TABLET 1 TAB PO (08:08)
[2024-12-27] MEDS: levETIRAcetam 500 MG TABLET 1500 MG PO (08:08)
[2024-12-27] MEDS: DULoxetine HCl 20 MG CAPSULE.DR PO (08:08)
[2024-12-27] MEDS: Apixaban 5 MG TABLET PO (08:08)
[2024-12-27] MEDS: Folic Acid 1 MG TABLET PO (08:08)
[2024-12-27] MEDS: Gabapentin 100 MG CAPSULE PO (08:08)
[2024-12-27] MEDS: carBAMazepine 200 MG TABLET 600 MG PO (09:34)
[2024-12-27] MEDS: PARoxetine HCL 20 MG TABLET PO (09:34)
[2024-12-27 11:35] VITALS: BP 112/74; PULSE 82; RESP 15; TEMP 36.4; O2SAT 96
--- NOTE | 2024-12-27 12:08 | MHC.CM.PN ---
PT CLEARED TO DC TODAY BACK TO [facility] AT [facility] TRAN[facility]ORT BOOKED WITH SANGEETHA MONROY FOR 1430 HOURS
--- NOTE | 2024-12-27 12:11 | PM.DS ---
DS: Providers Provider Date of Service: 12/27/24 Date of admission: 12/26/24 02:37 Date of discharge: 12/27/24 Primary care physician: None Physician Consults: 12/26/24 02:37 Consult to Neurology Routine Consulting Provider: [facility] Reason for consultation: Ataxia, dilantin toxicity DS: Diagnosis Discharge Diagnosis (1) Toxic metabolic encephalopathy: Status: Acute (2) Meningioma: Status: Acute DS: Summary Hospital Course Hospital Course: History of presenting illness: Date of Service: 12/26/24 Chief Complaint: Gait difficulty This is a 59-year-old male with pertinent history of DVT on Eliquis, seizure disorder, mood disorder, alcohol use disorder, brain tumor status post resection 22 years ago who [facility] difficulty with gait. Patient states he is having balance issues that have been ongoing since 2023. Patient has been having frequent falls due to the same. He has been unsteady on his feet. On the day of presentation, there was question of dizziness and maybe garbled speech and patient was sent to the ER. Does have a history of seizures. No fever, chills, chest pain, palpitations, shortness of breath, abdominal pain, changes in urinary or bowel habits. Denies nausea, vomiting. In the emergency department, Dilantin level found to be high. CT head without any acute abnormality. Hospital course: 59yo M with seizures s/p resection of L frontoparietal meningioma in 2003 , mood disorder, hx DVT, sent in from Rehab for gait difficulty, found to have ataxia due to phenytoin toxicity and admitted to medical floor, phenytoin was discontinued repeat phenytoin level trended down from 36.6-30.7, patient seen by neurologist Dr. Pizano he recommend phenytoin level around 15, recommend to recheck Dilantin level in couple days, and if trended down around 15 resume phenytoin 200 mg twice daily and have outpatient follow-up with primary neurologist, MRI brain with and without contrast 12/26 showed 3 small enhancing extra-axial masses along the left frontal dura Subjacent to these regions is cystic encephalomalacia and gliosis. The degree of this chronic change is only slightly increased from a 2012 study, as per Neurology cranial masses are probably meningioma recurring in the same area, slow growing, he recommend follow-up MRI in 12 months. Recommend outpatient follow-up with Neurology in 4 weeks. seizure disorder - continue gabapentin, carbamazepine, levetiracetam and resume Dilantin 200 mg twice daily once Dilantin level normalizes 200 mg twice daily and maintain Dilantin level of 15. mood disorder continue duloxtine, paroxetine, and trazodone. Time Attestation Discharge Coordination Time (in mins): 40 Quality: Safe Use of Opioids Does Pt have an Active Cancer Diagnosis on the Problem List?: No Quality: Stroke Does the patient have a stroke diagnosis?: No Physical Exam Vital Signs: Vital Signs: Last Vital Signs Temp 97.6 F 12/27/24 11:35 Pulse 82 12/27/24 11:35 Resp 15 12/27/24 11:35 BP 112/74 12/27/24 11:35 Pulse Ox 96 12/27/24 11:35 O2 Del Method Room Air 12/27/24 11:35 BMI result Body Mass Index 39.5 Const: Other: Gen: in no acute distress HEENT: sclera anicteric, moist mucus membranes Neck: supple Lungs: clear to auscultation bilaterally Heart: regular rate and rhythm, no murmurs. Abd: soft, non-tender, non-distended, bowel sounds audible. Ext: no edema Skin: warm/well-perfused Neuro: alert and oriented x3, tremors resolved, no ataxia Psych: appropriate affect DS: Data Data Completed and Pending Labs on day of discharge: Laboratory Results - last 24 hr 12/27/24 06:00 Sodium 143 Potassium 3.9 Chloride 111 H Carbon Dioxide 23 Anion Gap 13 BUN 14 Creatinine 0.68 Estim Creat Clear Calc 152.2 Estimated GFR > 60 Random Glucose 117 H Calcium 8.6 Phenytoin 30.7 H* Discharge Plan Discharge Anticipated Discharge Date/Time: 12/27/24 11:13 Patient Disposition: Xfer [facility] Discharge Diagnosis: Dilantin toxicity Referrals: [facility] [Outside] - 1 Week Physician,None [Primary Care Provider] - 1 Week Discharge Medications: Continued multivitamin Tablet 1 tab PO DAILY acetaminophen 325 mg Tablet 650 mg PO Q6H MDD 3g PRN (Reason: pain or fever) trazodone 50 mg tablet 25 mg PO BEDTIME thiamine HCl (vitamin B1) 100 mg Tablet 300 mg PO DAILY carbamazepine 200 mg tablet 600 mg PO BID magnesium hydroxide [Milk of Magnesia] 400 mg/5 mL Suspension 30 ml PO DAILY PRN (Reason: Constipation) bisacodyl 10 mg Suppository 10 mg NV DAILY PRN (Reason: Constipation) paroxetine HCl 20 mg Tablet 20 mg PO DAILY dexamethasone 4 mg Tablet 4 mg PO BID Fleet Enema 19-7 gram/118 mL Enema 118 ml NV DAILY PRN (Reason: Constipation) folic acid 1 mg Tablet 1 mg PO DAILY levetiracetam 750 mg tablet 1,500 mg PO BID gabapentin 100 mg Capsule 100 mg PO TID duloxetine 20 mg capsule,delayed release(DR/EC) 20 mg PO BID Eliquis 5 mg Tablet 5 mg PO BID Discontinued phenytoin sodium extended 100 mg capsule 400 mg PO BID Discharge Orders: Discharge Order (Routine); Ordered 12/27/24 Ordered By: Cal Islas Diet: Advance to usual diet Activity on Discharge: As tolerated Stand Alone Forms: Patient Portal Discharge page Print Language: Barbadian Care Plan Goals: Dilantin toxicity, check Dilantin level in 2 days and continue follow-up till desired range around 15 Last Dilantin level 30.7 on 12/27 Goal of Dilantin 15 Once Dilantin level around 15, resume Dilantin 200 mg twice daily and recheck Dilantin level in 1 week Health Concerns: Continue all other medications as before Plan of Treatment: Outpatient follow-up with primary care physician and neurologist Dr. Brito Assessment: As above
== END 2024-12-28 08:26 | disposition intermediate care facility (04) | DRG 91 ==
LOC: HO.ED 12-26 01:43 → HO.EDOVER 12-26 02:45
PROVIDERS: Family Medicine; Admitting Provider Student in an Organized Health Care Education/Training Program; Emergency Provider Internal Medicine; PCP Internal Medicine; Visit Provider Hospitalist
DX: R27.0 Ataxia, unspecified (principal); G92.8 Other toxic encephalopathy; D32.9 Benign neoplasm of meninges, unspecified; G40.909 Epilepsy, unspecified, not intractable, without status epilepticus; F39 Unspecified mood [affective] disorder; T42.0X5A Adverse effect of hydantoin derivatives, initial encounter; Z86.718 Personal history of other venous thrombosis and embolism; Z20.822 Contact with and (suspected) exposure to COVID-19; Z79.01 Long term (current) use of anticoagulants; Z79.899 Other long term (current) drug therapy
CPT/HCPCS: 0241U; 36415; 70450; 70496; 70498; 70553; 80048; 80053; 80061; 80156; 80185; 82607; 82746; 82947; 84484; 85025; 85610; 85730; 93005; 99285; A9585; J3411; J7120; J8540; Q9967

== ENCOUNTER → 2024-12-25 23:35 | Outpatient (BNV) | payer MEDICARE, MEDICAID, SELFPAY | PROVIDERS: Admitting Provider Student in an Organized Health Care Education/Training Program; Emergency Provider Internal Medicine; Visit Provider Internal Medicine Cardiovascular Disease | DX: R94.31 Abnormal electrocardiogram [ECG] [EKG] (principal); I63.9 Cerebral infarction, unspecified | CPT/HCPCS: 93010 ==

== ENCOUNTER → 2024-12-25 23:35 | Outpatient (BNV) | payer MEDICARE, MEDICAID, SELFPAY | PROVIDERS: Emergency Provider Internal Medicine; Visit Provider Radiology Diagnostic Radiology | DX: R41.82 Altered mental status, unspecified (principal) | CPT/HCPCS: 70450; 70496; 70498 ==

== ENCOUNTER 2024-12-26 02:37 | Outpatient (BNV) | payer MEDICARE, MEDICAID, SELFPAY | END 2024-12-26 09:30 | PROVIDERS: Admitting Provider Student in an Organized Health Care Education/Training Program; Emergency Provider Internal Medicine; Visit Provider Radiology Vascular & Interventional Radiology | DX: G93.89 Other specified disorders of brain (principal) | CPT/HCPCS: 70553 ==

== ENCOUNTER → 2024-12-26 02:37 | Outpatient (BNV) | payer MEDICARE, MEDICAID, SELFPAY | PROVIDERS: Admitting Provider Student in an Organized Health Care Education/Training Program; Emergency Provider Internal Medicine; Visit Provider Student in an Organized Health Care Education/Training Program | DX: R27.0 Ataxia, unspecified (principal); T42.0X1A Poisoning by hydantoin derivatives, accidental (unintentional), initial encounter | CPT/HCPCS: 99223; 99239; 99499 ==

== ENCOUNTER → 2024-12-26 02:37 | Outpatient (BNV) | payer MEDICARE, MEDICAID, SELFPAY | PROVIDERS: Admitting Provider Student in an Organized Health Care Education/Training Program; Emergency Provider Internal Medicine; Visit Provider Psychiatry & Neurology Neurology | DX: G92.8 Other toxic encephalopathy (principal); D32.9 Benign neoplasm of meninges, unspecified | CPT/HCPCS: 99222 ==

== ENCOUNTER 2025-07-28 21:21 | Inpatient (IN) | payer MEDICARE, MEDICAID, SELFPAY ==
--- NOTE | 2025-07-28 | ECG_ITS ---
Test Reason : FALL Blood Pressure : */* mmHG Vent. Rate : 106 BPM Atrial Rate : 106 BPM P-R Int : 174 ms QRS Dur : 92 ms QT Int : 336 ms P-R-T Axes : 46 -89 52 degrees QTcB Int : 446 ms Sinus tachycardia Left axis deviation Incomplete right bundle branch block Cannot rule out Inferior infarct , age undetermined Abnormal ECG When compared with ECG of 26-Dec-2024 00:01, due to artifact, cannot compare Referred By: Generic ED Physician Electronically Signed By: PENNIE JONES
--- NOTE | ~2025-07-28 | CT_ITS ---
CLINICAL HISTORY: Unwitnessed Fall; EtOH CT head without contrast Comparison: MR - MR HEAD/BRAIN WO/W CON - 12/26/24 09:[address]/SR - CT HEAD FOR STROKE - 12/25/24 23:35 EST Findings: No midline shift or hydrocephalus. No acute hemorrhage. Gliosis/encephalomalacia left posterior frontal lobe with overlying craniotomy site. At this site, there are 3 soft tissue nodules measuring 11 mm on image 73:4 (Most recently 8 mm), 1.4 cm on image 70:4 (most recently 1.2 cm), and 2.3 cm on image 66:4 (most recently 1.3 cm). Moderate atrophy like changes. The visualized paranasal sinuses and mastoid air cells are normal. The orbits are unremarkable. There is no acute fracture. IMPRESSION: 1. Increased size of 3 masses at the previous left posterior frontal postoperative site. Correlate with patient history. 2. Otherwise no new findings. No acute hemorrhage. This document has been electronically signed by: Iva Meehan MD on 07/29/2025 02:35:04
--- NOTE | ~2025-07-28 | CT_ITS ---
CLINICAL HISTORY: Unwitnessed Fall; EtOH CT cervical spine without contrast Comparison: CT - CT ANGIO HEAD NECK STROKE - 12/25/24 23:37 EST Findings: Straightening of cervical lordosis. No scoliosis. Moderate disc disease C5-C7 with marginal osteophytes. Mild to moderate multilevel facet disease. Moderate to severe multilevel foraminal stenoses most evident C5-C7. Old left distal clavicle fracture incompletely included on the exam. No acute cervical fracture. No acute findings on limited view of the intracranial contents. Soft tissues of the neck are normal. Lung apices are clear. IMPRESSION: Cervical degenerative spondylosis with no acute fracture. This document has been electronically signed by: Iva Meehan MD on 07/29/2025 02:30:58
--- NOTE | ~2025-07-28 | CT_ITS ---
CLINICAL HISTORY: Abdominal Distention; Diffuse Tenderness CT abdomen and pelvis with contrast Comparison: CT - CT ABDOMEN PELVIS W IV CON - 07/29/25 00:51 EDT Findings: Minor atelectasis at lung bases. Right mid renal cyst 3.8 cm. Hypodense liver parenchyma. Gallbladder and solid organs otherwise unremarkable. No dilated bowel loops, pneumoperitoneum, or pneumatosis. Umbilical hernia contains fat without induration 3.4 cm. Extensive distal colonic diverticulosis without diverticulitis. Normal appendix. No ascites. The bones are intact. IMPRESSION: 1. Small umbilical hernia contains fat without induration. 2. Extensive distal colonic diverticulosis without diverticulitis. 3. Hepatic steatosis. This document has been electronically signed by: Iva Meehan MD on 07/29/2025 02:30:14
--- NOTE | ~2025-07-28 | XR_ITS ---
CLINICAL HISTORY: sob fall 2 view chest x-ray Comparison: None provided Findings: No consolidation or effusion. Heart size is normal. Old left distal clavicle fracture. Partial ossification of the coracoclavicular ligament. IMPRESSION: 1. No acute findings. This document has been electronically signed by: Iva Meehan MD on 07/28/2025 23:01:16
[2025-07-28 21:30] VITALS: BP 134/63; BP 153/111; PULSE 112; PULSE 125; RESP 18; TEMP 36.9; O2SAT 94; O2SAT 98; BMI 39.5
[2025-07-28 21:46] LABS: MANUAL DIFF FLAG NO
[2025-07-28 21:47] LABS: Hematocrit 43.1 % (42.0-52.0); Hemoglobin 15.6 g/dl (14.0-18.0); Imm Gran Abs Auto 0.02 X10*3/uL (0.00-0.03); Imm Gran Pct Auto 0.4 % (0.0-0.4); Lymphocytes Absolute Auto 2.6 X10*3/uL (1.2-4.9); Mean Corpuscular HGB Conc 36.2 g/dl (31.0-36.0); Mean Corpuscular Hemoglobin 33.4 pg (27.0-33.0); Mean Corpuscular Volume 92.3 fL (80.0-98.0); NRBC Abs Auto 0.000 X10*3/uL (0.0-0.012); NRBC Pct Auto 0.0 /100WBC (0.0-0.2); Platelet Count 218 X10*3/uL (160-400); Red Blood Count 4.67 X10*6/uL (4.60-5.80); White Blood Count 5.6 X10*3/uL (4.8-10.8)
[2025-07-28 22:09] LABS: Potassium 2.9 mmol/L (3.3-5.1)
[2025-07-28 22:10] LABS: Anion Gap 19 (12-20); B Type Natriuretic Peptide 16 pg/mL (<100); Blood Urea Nitrogen 7 mg/dL (9-16); Calcium 8.4 mg/dL (8.4-10.2); Carbon Dioxide 22 mmol/L (22-29); Chloride 106 mmol/L (96-108); Creatinine Clr Calc Pharmacy 144.3; Estimated Glomerular Filt Rate > 60; Sodium 144 mmol/L (135-145)
[2025-07-28 22:12] LABS: Troponin-I High Sensitivity 8.5 ng/L (<3.5-35.0)
--- OUTSIDE RECORDS SUMMARY | 2025-07-28 22:21 | XMS_ITS | Encounter Summary ---
Author Organization [facility] Address [address] [place] [address] Care Team Providers Care Rehab Trainer Name Role Phone Physician, No Pcp Primary Care Provider Unavaila ble Encounter Details Date Type Department Care Team (Late st Contact Info) Description 05/07/2025 Lab Requisition [facility] - Main Lab [address] [facility] [place] [address] Ailyn Stringer MD [address] [phone] Malignant neoplasm of brain, unspecified (CMS/HCC V24, CMS/HCC V28) Social History Tobacco Use Types Packs/Day Years Used Date Smoking Tobacco: Every Day Cigarettes Smokeless Tobacco: Current Alcohol Use Standard Drinks/Week Comments Not Currently 0 (1 standard drink = 0.6 oz pur e alcohol) Interpersonal Safety Answer Date Record ed Physical Abuse 11/07/2024 Verbal Abuse 11/07/2024 Sex and Gender Information Value Date Recorded Sex Assigned at Not on file Legal Sex Male 6:34 AM EST Gender Identity Not on file Sexual Orientation Not on file Occupation Industry Job Start Date Job End Date Disability Not on file Not on file Not on file documented as of this encounter Functional Status * Are you deaf or do you have serious difficulty hearing? Answer Date of Assessment Author No 11/06/2024 6:22 AM Jigna Chávez RN * Are you blind or do you have serious difficulty seeing, even when wearing glasses? Answer Date of Assessment Author No 11/06/2024 6:22 AM Jigna Chávez RN * Do you have serious difficulty walking or climbing stairs? Answer Date of Assessment Author Yes 11/06/2024 6:22 AM Jigna Chávez RN * Do you have serious difficulty dressing or bathing? Answer Date of Assessment Author No 11/06/2024 6:22 AM Jigna Chávez RN * Because of a physical, mental, or emotional condition, do you have serious difficulty doing errandsalone such as visiting the doctor? Answer Date of Assessment Author No 11/06/2024 6:22 AM Jigna Chávez RN documented as of this encounter Mental Status * Because of a physical, mental, or emotional condition, do you have serious difficulty concentrating, remembering, or making decisions? (5 years old or older) Answer Entry Date Author No 11/06/2024 6:22 AM Jigna Chávez RN documented in this encounter Plan of Treatment Not on file documented as of this encounter Visit Diagnoses Diagnosis Malignant neoplasm of brain, unspecified (CMS/HCC V24, CMS/HCC V28) documented in this encounter Care Teams Rehab Trainer Relationship Specialty Start Date End Date Physician, No Pcp PCP - General 11/05/24 documented as of this encounter
--- OUTSIDE RECORDS SUMMARY | 2025-07-28 22:21 | XMS_ITS | Encounter Summary ---
Author Organization [facility] Address [address] [place] [address] Care Team Providers Care Nurse Care Manager Name Role Phone Physician, No Pcp Primary Care Provider Unavaila ble Encounter Details Date Type Department Care Team (Late st Contact Info) Description 01/10/2025 Lab Requisition [facility] - Main Lab [address] [facility] [place] [address] Ailyn Stringer MD [address] [phone] Malignant neoplasm of brain, unspecified (CMS/HCC V24, CMS/HCC V28); Encounter for therapeutic drug level monitoring Social History Tobacco Use Types Packs/Day Years Used Date Smoking Tobacco: Every Day Cigarettes Smokeless Tobacco: Current Interpersonal Safety Answer Date Record ed Physical Abuse 11/07/2024 Verbal Abuse 11/07/2024 Sex and Gender Information Value Date Recorded Sex Assigned at Not on file Legal Sex Male 6:34 AM EST Gender Identity Not on file Sexual Orientation Not on file documented as of this [...] on file documented as of this encounter Procedures Procedure Name Priority Date/Time Associated Diagnosis Comments COMPLETE BLOOD COUNT Routine 01/11/2025 9:19 AM EST Malignant neoplasm of brain, unspecified (CMS/HCC) Encounter for therapeutic drug level monitoring PHENYTOIN LEVEL, TOTAL Routine 9:19 AM EST Malignant neoplasm of brain, unspecified (CMS/HCC) Encounter for therapeutic drug level monitoring COMPREHENSIVE METABOLIC PANEL Routine 01/11/2025 9:19 AM EST Malignant neoplasm of brain, unspecified (CMS/HCC) Encounter for therapeutic drug level monitoring documented in this encounter Results * Phenytoin level total (01/11/2025 9:19 AM EST) Phenytoin Level 11.9 10.0 - 20.0 mcg/mL LAB CHEMISTRY METHOD 01/11/2025 1:42 PM EST [facility] Blood Venous blood specimen / Unknown Venipuncture / Unknown 01/11/2025 9:19 AM EST 01/11/2025 11:15 AM EST us Ailyn Stringer MD LAB BLOOD ORDERABLES Fin al Result [facility] [address] [place] [address], * (ABNORMAL) Comprehensive metabolic panel (01/11/2025 9:19 AM EST) Sodium 138 133 - 145 mmol/L LAB CHEMISTRY METHOD 01/11/2025 1:42 PM [facility] Potassium 3.5 3.5 - 5.5 mmol/L LAB CHEMISTRY METHOD 01/11/2025 1:42 PM [facility] Chloride 103 96 - 110 mmol/L LAB CHEMISTRY METHOD 01/11/2025 1:42 PM [facility] CO2 26 21 - 32 mmol/L LAB CHEMISTRY METHOD 01/11/2025 1:42 PM [facility] Anion Gap 9 3 - 11 LAB CHEMISTRY METHOD 01/11/2025 1:42 PM [facility] Glucose 150(H) 70 - 100 mg/dL LAB CHEMISTRY METHOD 01/11/2025 1:42 PM [facility] BUN 14 5 - 25 mg/dL LAB CHEMISTRY METHOD 01/11/2025 1:42 PM [facility] Creatinine 0.73 0.70 - 1.30 mg/dL LAB CHEMISTRY METHOD 01/11/2025 1:42 PM [facility] eGFR 105 >=60 mL/min/1. 73m2 LAB CHEMISTRY METHOD 01/11/2025 1:42 PM [facility] Comment:Calculation based on the Chronic Kidney Disease Epidemiology Collaboration (CKD-EPI) equation refit without adjustment for race. BUN/Creatinine Ratio 19.2 LAB CHEMISTRY METHOD 01/11/2025 1:42 PM [facility] Calcium 8.9 8.5 - 10.5 mg/dL LAB CHEMISTRY METHOD 01/11/2025 1:42 PM [facility] AST (SGOT) 16 10 - 42 unit/L LAB CHEMISTRY METHOD 01/11/2025 1:42 PM [facility] ALT (SGPT) 53 10 - 60 unit/L LAB CHEMISTRY METHOD 01/11/2025 1:42 PM [facility] Alkaline Phosphatase 114 42 - 121 unit/L LAB CHEMISTRY METHOD 01/11/2025 1:42 PM EST [facility] Total Protein 6.7 6.0 - 8.0 g/dL LAB CHEMISTRY METHOD 01/11/2025 1:42 PM EST [facility] Albumin 3.5 3.2 - 5.0 g/dL LAB CHEMISTRY METHOD 01/11/2025 1:42 PM [facility] Total Bilirubin 0.2 0.0 - 1.4 mg/dL LAB CHEMISTRY METHOD 01/11/2025 1:42 PM [facility] Blood Venous blood specimen / Unknown Venipuncture / Unknown 01/11/2025 9:19 AM EST 01/11/2025 11:15 AM EST us Ailyn Stringer MD LAB BLOOD ORDERABLES Fin al Result [facility] [address] [place] [address], * (ABNORMAL) Complete blood count (01/11/2025 9:19 AM EST) WBC 8.9 4.8 - 10.8 K/mcL LAB HEMETOLOGY METHOD 01/11/2025 1:20 PM [facility] RBC 4.70 4.50 - 5.50 M/mcL LAB HEMETOLOGY METHOD 01/11/2025 1:20 PM [facility] Hemoglobin 15.3 13.5 - 17.5 g/dL LAB HEMETOLOGY METHOD 01/11/2025 1:20 PM [facility] Hematocrit 45.5 42.0 - 54.0 % LAB HEMETOLOGY METHOD 01/11/2025 1:20 PM [facility] MCV 96.8 79.0 - 98.0 FL LAB HEMETOLOGY METHOD 01/11/2025 1:20 PM [facility] MCH 32.6(H) 27.0 - 32.0 pcg LAB HEMETOLOGY METHOD 01/11/2025 1:20 PM EST [facility] MCHC 33.6 32.0 - 37.0 g/dL LAB HEMETOLOGY METHOD 01/11/2025 1:20 PM [facility] RDW 12.4 11.0 - 15.0 % LAB HEMETOLOGY METHOD 01/11/2025 1:20 PM [facility] Platelets 281 130 - 400 K/mcL LAB HEMETOLOGY METHOD 01/11/2025 1:20 PM [facility] MPV 10.6 7.0 - 11.0 FL LAB HEMETOLOGY METHOD 01/11/2025 1:20 PM [facility] NRBC 0.0 <1.0 % LAB HEMETOLOGY METHOD 01/11/2025 1:20 PM [facility] NRBC Absolute 0.00 <0.10 K/mcL LAB HEMETOLOGY METHOD 01/11/2025 1:20 PM [facility] Blood Venous blood specimen / Unknown Venipuncture / Unknown 01/11/2025 9:19 AM EST 01/11/2025 11:15 AM EST us Ailyn Stringer MD LAB BLOOD ORDERABLES Fin al Result [facility] [address] [place] [address], documented in this encounter Visit Diagnoses Diagnosis Malignant neoplasm of brain, unspecified (CMS/HCC V24, CMS/HCC V28) Encounter for therapeutic drug level monitoring documented in this encounter Care Teams Nurse Care Manager Relationship Specialty Start Date End Date Physician, No Pcp PCP - General 11/05/24 documented as of this encounter
--- OUTSIDE RECORDS SUMMARY | 2025-07-28 22:21 | XMS_ITS | Encounter Summary ---
Author Organization [facility] Address [address] [place] [address] Care Team Providers Care Wool Tamper Name Role Phone Physician, No Pcp Primary Care Provider Unavaila ble Encounter Details Date Type Department Care Team (Late st Contact Info) Description 01/02/2025 Lab Requisition [facility] - Main Lab 299 [facility] [place] [address] Delvin Harrell MD [address] [place] [address] Encounter for therapeutic drug level monitoring Social [...] of Assessment Author No 11/06/2024 6:22 AM EST Jigna Kee RN documented as of this encounter Mental Status * Because of a physical, mental, or emotional condition, do you have serious difficulty concentrating, remembering, or making decisions? (5 years old or older) Answer Entry Date Author No 11/06/2024 6:22 AM EST Jigna Kee RN documented in this encounter Plan of Treatment Not on file documented as of this encounter Procedures Procedure Name Priority Date/Time Associated Diagnosis Comments PHENYTOIN LEVEL, TOTAL Routine 01/02/2025 8:40 AM EST Encounter for therapeutic drug level monitoring documented in this encounter Results * Phenytoin level total (01/02/2025 8:40 AM EST) Phenytoin Level 14.7 10.0 - 20.0 mcg/mL LAB CHEMISTRY METHOD 01/02/2025 10:29 AM EST [facility] Blood Venous blood specimen / Unknown Venipuncture / Unknown 01/02/2025 8:40 AM EST 01/02/2025 10:05 AM EST us Delvin Harrell MD LAB BLOOD ORDERABLES Final R esult [facility] [address] [place] [address], documented in this encounter Visit Diagnoses Diagnosis Encounter for therapeutic drug level monitoring documented in this encounter Care Teams Wool Tamper Relationship Specialty Start Date End Date Physician, No Pcp PCP - General 11/05/24 documented as of this encounter
--- OUTSIDE RECORDS SUMMARY | 2025-07-28 22:21 | XMS_ITS | Encounter Summary ---
Author Organization [facility] Address [address] [place] [address] Care Team Providers Care Guard Rail Installer Name Role Phone Physician, No Pcp Primary Care Provider Unavaila ble Encounter Details Date Type Department Care Team (Late st Contact Info) Description 01/01/2025 Lab Requisition [facility] - Main Lab 299 [facility] [place] [address] Ailyn Stringer MD [address] [phone] Encounter for therapeutic drug level monitoring Social [...] as of this encounter Visit Diagnoses Diagnosis Encounter for therapeutic drug level monitoring documented in this encounter Care Teams Guard Rail Installer Relationship Specialty Start Date End Date Physician, No Pcp PCP - General 11/05/24 documented as of this encounter
--- OUTSIDE RECORDS SUMMARY | 2025-07-28 22:21 | XMS_ITS | Encounter Summary ---
Author Organization [facility] Address [address] [place] [address] Care Team Providers Care Cashier Assistant Name Role Phone Physician, No Pcp Primary Care Provider Unavaila ble Encounter Details Date Type Department Care Team (Late st Contact Info) Description 2025 Lab Requisition [facility] - Main Lab 299 [facility] [place] [address] iAlyn Stringer MD [address] [phone] Malignant neoplasm of brain, unspecified (CMS/HCC V24, [...] Associated Diagnosis Comments COMPLETE BLOOD COUNT Routine 01/18/2025 8:00 AM EDT Malignant neoplasm of brain, unspecified (CMS/HCC) BASIC METABOLIC PANEL Routine 01/18/2025 8:00 AM EDT Malignant neoplasm of brain, unspecified (CMS/HCC) documented in this encounter Results * (ABNORMAL) Basic metabolic panel (01/18/2025 8:00 AM EDT) Sodium 141 133 - 145 mmol/L LAB CHEMISTRY METHOD 01/18/2025 11:47 AM [facility] Potassium 3.4(L) 3.5 - 5.5 mmol/L LAB CHEMISTRY METHOD 01/18/2025 11:47 AM [facility] Chloride 106 96 - 110 mmol/L LAB CHEMISTRY METHOD 01/18/2025 11:47 AM [facility] CO2 25 21 - 32 mmol/L LAB CHEMISTRY METHOD 01/18/2025 11:47 AM [facility] Anion Gap 10 3 - 11 LAB CHEMISTRY METHOD 01/18/2025 11:47 AM [facility] Glucose 172(H) 70 - 100 mg/dL LAB CHEMISTRY METHOD 01/18/2025 11:47 AM [facility] BUN 16 5 - 25 mg/dL LAB CHEMISTRY METHOD 01/18/2025 11:47 AM EDT [facility] Creatinine 0.87 0.70 - 1.30 mg/dL LAB CHEMISTRY METHOD 01/18/2025 11:47 AM EDT [facility] LAB eGFR 99 >=60 mL/min/1. 73m2 LAB CHEMISTRY METHOD 01/18/2025 11:47 AM T [facility] Comment:Calculation based on the Chronic Kidney Disease Epidemiology Collaboration (CKD-EPI) equation refit without adjustment for race. BUN/Creatinine Ratio 18.4 LAB CHEMISTRY METHOD 01/18/2025 11:47 AM [facility] Calcium 8.8 8.5 - 10.5 mg/dL LAB CHEMISTRY METHOD 01/18/2025 11:47 AM [facility] Blood Venous blood specimen / Unknown Venipuncture / Unknown 01/18/2025 8:00 AM EDT 01/18/2025 10:35 AM EDT us Ailyn Stringer MD LAB BLOOD ORDERABLES Fin al Result [facility] LAB [address] [place] [address], * (ABNORMAL) Complete blood count (01/18/2025 8:00 AM EDT) WBC 8.1 4.8 - 10.8 K/mcL LAB HEMETOLOGY METHOD 01/18/2025 11:21 AM EDT [facility] RBC 4.60 4.50 - 5.50 M/mcL LAB HEMETOLOGY METHOD 01/18/2025 11:21 AM T [facility] Hemoglobin 15.1 13.5 - 17.5 g/dL LAB HEMETOLOGY METHOD 01/18/2025 11:21 AM [facility] Hematocrit 45.2 42.0 - 54.0 % LAB HEMETOLOGY METHOD 01/18/2025 11:21 AM EDT [facility] MCV 97.6 79.0 - 98.0 FL LAB HEMETOLOGY METHOD 01/18/2025 11:21 AM T [facility] MCH 32.6(H) 27.0 - 32.0 pcg LAB HEMETOLOGY METHOD 01/18/2025 11:21 AM [facility] MCHC 33.4 32.0 - 37.0 g/dL LAB HEMETOLOGY METHOD 01/18/2025 11:21 AM T [facility] RDW 12.4 11.0 - 15.0 % LAB HEMETOLOGY METHOD 01/18/2025 11:21 AM [facility] Platelets 276 130 - 400 K/mcL LAB HEMETOLOGY METHOD 01/18/2025 11:21 AM [facility] MPV 10.6 7.0 - 11.0 FL LAB HEMETOLOGY METHOD 01/18/2025 11:21 AM [facility] NRBC 0.0 <1.0 % LAB HEMETOLOGY METHOD 01/18/2025 11:21 AM [facility] NRBC Absolute 0.00 <0.10 K/mcL LAB HEMETOLOGY METHOD 01/18/2025 11:21 AM [facility] Blood Venous blood specimen / Unknown Venipuncture / Unknown 01/18/2025 8:00 AM EDT 01/18/2025 10:36 AM EDT us Ailyn Stringer MD LAB BLOOD ORDERABLES Fin al Result [facility] [address] [place] [address], documented in this encounter Visit Diagnoses Diagnosis Malignant neoplasm of brain, unspecified (CMS/HCC V24, CMS/HCC V28) documented in this encounter Care Teams Cashier Assistant Relationship Specialty Start Date End Date Physician, No Pcp PCP - General 11/05/24 documented as of this encounter
--- OUTSIDE RECORDS SUMMARY | 2025-07-28 22:21 | XMS_ITS | Encounter Summary ---
Author Organization [facility] Address [address] [place] [address] Care Team Providers Care Scientific Writer Name Role Phone Physician, No Pcp Primary Care Provider Unavaila ble Encounter Details Date Type Department Care Team (Late st Contact Info) Description 02/13/2025 Lab Requisition [facility] - Main Lab 299 [facility] [place] [address] Ailyn Stringer MD [address] [phone] Malignant neoplasm of brain, unspecified (CMS/HCC V24, [...] Associated Diagnosis Comments COMPLETE BLOOD COUNT Routine 02/15/2025 7:42 AM EDT Malignant neoplasm of brain, unspecified COMPREHENSIVE METABOLIC PANEL Routine 02/15/2025 7:42 AM EDT Malignant neoplasm of brain, unspecified documented in this encounter Results * (ABNORMAL) Comprehensive metabolic panel (02/15/2025 7:42 AM EDT) Sodium 138 133 - 145 mmol/L LAB CHEMISTRY METHOD 02/15/2025 1:08 PM [facility] Potassium 3.9 3.5 - 5.5 mmol/L LAB CHEMISTRY METHOD 02/15/2025 1:08 PM [facility] Chloride 107 96 - 110 mmol/L LAB CHEMISTRY METHOD 02/15/2025 1:08 PM [facility] CO2 22 21 - 32 mmol/L LAB CHEMISTRY METHOD 02/15/2025 1:08 PM [facility] Anion Gap 9 3 - 11 LAB CHEMISTRY METHOD 02/15/2025 1:08 PM [facility] Glucose 291(H) 70 - 100 mg/dL LAB CHEMISTRY METHOD 02/15/2025 1:08 PM [facility] BUN 19 5 - 25 mg/dL LAB CHEMISTRY METHOD 02/15/2025 1:08 PM [facility] Creatinine 0.70 0.70 - 1.30 mg/dL LAB CHEMISTRY METHOD 02/15/2025 1:08 PM [facility] eGFR 106 >=60 mL/min/1. 73m2 LAB CHEMISTRY METHOD 02/15/2025 1:08 PM [facility] Comment:Calculation based on the Chronic Kidney Disease Epidemiology Collaboration (CKD-EPI) equation refit without adjustment for race. BUN/Creatinine Ratio 27.1 LAB CHEMISTRY METHOD 02/15/2025 1:08 PM [facility] Calcium 9.0 8.5 - 10.5 mg/dL LAB CHEMISTRY METHOD 02/15/2025 1:08 PM [facility] AST (SGOT) 10 10 - 42 unit/L LAB CHEMISTRY METHOD 02/15/2025 1:08 PM [facility] ALT (SGPT) 35 10 - 60 unit/L LAB CHEMISTRY METHOD 02/15/2025 1:08 PM [facility] Alkaline Phosphatase 163(H) 42 - 121 unit/L LAB CHEMISTRY METHOD 02/15/2025 1:08 PM [facility] Total Protein 6.7 6.0 - 8.0 g/dL LAB CHEMISTRY METHOD 02/15/2025 1:08 PM [facility] Albumin 3.3 3.2 - 5.0 g/dL LAB CHEMISTRY METHOD 02/15/2025 1:08 PM [facility] Total Bilirubin 0.2 0.0 - 1.4 mg/dL LAB CHEMISTRY METHOD 02/15/2025 1:08 PM [facility] Blood Venous blood specimen / Unknown Venipuncture / Unknown 02/15/2025 7:42 AM EDT 02/15/2025 10:14 AM EDT us Ailyn Stringer MD LAB BLOOD ORDERABLES Fin al Result [facility] [address] [place] [address], * (ABNORMAL) Complete blood count (02/15/2025 7:42 AM EDT) [facility] WBC 8.8 4.8 - 10.8 K/mcL LAB HEMETOLOGY METHOD 02/15/2025 11:41 AM EDT [facility] RBC 4.60 4.50 - 5.50 M/mcL LAB HEMETOLOGY METHOD 02/15/2025 11:41 AM EDT [facility] Hemoglobin 14.8 13.5 - 17.5 g/dL LAB HEMETOLOGY METHOD 02/15/2025 11:41 AM [facility] Hematocrit 43.1 42.0 - 54.0 % LAB HEMETOLOGY METHOD 02/15/2025 11:41 AM EDT [facility] MCV 93.7 79.0 - 98.0 FL LAB HEMETOLOGY METHOD 02/15[facility]2025 11[facility] MCH 32.2(H) 27.0 - 32.0 pcg LAB HEMETOLOGY METHOD 02/15/2025 11:41 AM [facility] MCHC 34.3 32.0 - 37.0 g/dL LAB HEMETOLOGY METHOD 02/15/2025 11:41 AM EDT [facility] RDW 12.5 11.0 - 15.0 % LAB HEMETOLOGY METHOD 02/15/2025 11:41 [facility] Platelets 268 130 - 400 K/mcL LAB HEMETOLOGY METHOD 02/15/2025 11:41 [facility] MPV 11.3(H) 7.0 - 11.0 FL LAB HEMETOLOGY METHOD 02/15/2025 11:41 [facility] NRBC 0.0 <1.0 % LAB HEMETOLOGY METHOD 02/15/2025 11:41 AM EDT [facility] NRBC Absolute 0.00 <0.10 K/mcL LAB HEMETOLOGY METHOD 02/15/2025 11:41 AM EDT [facility] Blood Venous blood specimen / Unknown Venipuncture / Unknown 02/15/2025 7:42 AM EDT 02/15/2025 10:14 AM EDT us Ailyn Stringer MD LAB BLOOD ORDERABLES Fin al Result [facility] [address] [place] [address], documented in this encounter Visit Diagnoses Diagnosis Malignant neoplasm of brain, unspecified (CMS/HCC V24, CMS/HCC V28) documented in this encounter Care Teams Scientific Writer Relationship Specialty Start Date End Date Physician, No Pcp PCP - General 11/05/24 documented as of this encounter
--- OUTSIDE RECORDS SUMMARY | 2025-07-28 22:21 | XMS_ITS | Encounter Summary ---
Author Organization [facility] Address [address] [place] [address] Care Team Providers Care Piano Player Name Role Phone Physician, No Pcp Primary Care Provider Unavaila ble Encounter Details Date Type Department Care Team (Late st Contact Info) Description 03/05/2025 Lab Requisition [facility] - Main Lab 299 [facility] [place] [address] Ailyn Stringer MD [address] [phone] Malignant neoplasm of brain, unspecified (CMS/HCC V24, [...] Associated Diagnosis Comments COMPLETE BLOOD COUNT Routine 03/08/2025 7:09 AM EDT Malignant neoplasm of brain, unspecified ([facility] V24, [facility] V28) COMPREHENSIVE METABOLIC PANEL Routine 03/08/2025 7:09 AM EDT Malignant neoplasm of brain, unspecified ([facility] V24, [facility] V28) documented in this encounter Results * (ABNORMAL) Comprehensive metabolic panel (03/08/2025 7:09 AM EDT) Sodium 134 133 - 145 mmol/L LAB CHEMISTRY METHOD 03/08/2025 7:[address] [facility] Potassium 4.0 3.5 - 5.5 mmol/L LAB CHEMISTRY METHOD 03/08/2025 7:[address] [facility] Chloride 100 96 - 110 mmol/L LAB CHEMISTRY METHOD 03/08/2025 7:[address] [facility] CO2 23 21 - 32 mmol/L LAB CHEMISTRY METHOD 03/08/2025 7:[address] [facility] Anion Gap 11 3 - 11 LAB CHEMISTRY METHOD 03/08/2025 7:[address] [facility] Glucose 375(H) 70 - 100 mg/dL LAB CHEMISTRY METHOD 03/08/2025 7:[address] [facility] BUN 10 5 - 25 mg/dL LAB CHEMISTRY METHOD 03/08/2025 7:[address] [facility] Creatinine 0.87 0.70 - 1.30 mg/dL LAB CHEMISTRY METHOD 03/08/2025 7:[address] [facility] eGFR 99 >=60 mL/min/1. 73m2 LAB CHEMISTRY METHOD 03/08/2025 7:[address] [facility] Comment:Calculation based on the Chronic Kidney Disease Epidemiology Collaboration (CKD-EPI) equation refit without adjustment for race. BUN/Creatinine Ratio 11.5 LAB CHEMISTRY METHOD 03/08/2025 7:[address] [facility] Calcium 9.1 8.5 - 10.5 mg/dL LAB CHEMISTRY METHOD 03/08/2025 7:[address] [facility] AST (SGOT) 19 10 - 42 unit/L LAB CHEMISTRY METHOD 03/08/2025 7:[address] [facility] ALT (SGPT) 43 10 - 60 unit/L LAB CHEMISTRY METHOD 03/08/2025 7:[address] [facility] Alkaline Phosphatase 169(H) 42 - 121 unit/L LAB CHEMISTRY METHOD 03/08/2025 7:[address] [facility] Total Protein 7.2 6.0 - 8.0 g/dL LAB CHEMISTRY METHOD 03/08/2025 7:[address] [facility] Albumin 3.7 3.2 - 5.0 g/dL LAB CHEMISTRY METHOD 03/08/2025 7:[address] [facility] Total Bilirubin 0.2 0.0 - 1.4 mg/dL LAB CHEMISTRY METHOD 03/08/2025 7:[address] [facility] Blood Venous blood specimen / Unknown Venipuncture / Unknown 03/08/2025 7:09 AM EDT 03/08/2025 11:36 AM EDT Ailyn Stringer MD LAB BLOOD ORDERABLES Fin al Result [facility] [address] [place] [address], * (ABNORMAL) Complete blood count (03/08/2025 7:09 AM EDT) WBC 7.1 4.8 - 10.8 K/mcL LAB HEMETOLOGY METHOD 03/08/2025 12:49 PM EDT [facility] RBC 4.90 4.50 - 5.50 M/mcL LAB HEMETOLOGY METHOD 03/08/2025 12:49 PM EDT [facility] Hemoglobin 15.5 13.5 - 17.5 g/dL LAB HEMETOLOGY METHOD 03/08/2025 12:49 PM EDT [facility] Hematocrit 45.8 42.0 - 54.0 % LAB HEMETOLOGY METHOD 03/08/2025 12:49 PM EDT [facility] MCV 94.0 79.0 - 98.0 FL LAB HEMETOLOGY METHOD 03/08/2025 12:49 PM EDT [facility] MCH 31.8 27.0 - 32.0 pcg LAB HEMETOLOGY METHOD 03/08/2025 12:49 PM EDT [facility] MCHC 33.8 32.0 - 37.0 g/dL LAB HEMETOLOGY METHOD 03/08/2025 12:49 PM EDT [facility] RDW 12.5 11.0 - 15.0 % LAB HEMETOLOGY METHOD 03/08/2025 12:49 PM EDT [facility] Platelets 275 130 - 400 K/mcL LAB HEMETOLOGY METHOD 03/08/2025 12:49 PM EDT [facility] MPV 11.2(H) 7.0 - 11.0 FL LAB HEMETOLOGY METHOD 03/08/2025 12:49 PM EDT [facility] NRBC 0.0 <1.0 % LAB HEMETOLOGY METHOD 03/08/2025 12:49 PM EDT [facility] NRBC Absolute 0.00 <0.10 K/mcL LAB HEMETOLOGY METHOD 03/08/2025 12:49 PM EDT [facility] Blood Venous blood specimen / Unknown Venipuncture / Unknown 03/08/2025 7:09 AM EDT 03/08/2025 11:22 AM EDT us Ailyn Stringer MD LAB BLOOD ORDERABLES Fin al Result [facility] [address] [place] [address], documented in this encounter Visit Diagnoses Diagnosis Malignant neoplasm of brain, unspecified (CMS/HCC V24, CMS/HCC V28) documented in this encounter Care Teams Piano Player Relationship Specialty Start Date End Date Physician, No Pcp PCP - General 11/05/24 documented as of this encounter
--- OUTSIDE RECORDS SUMMARY | 2025-07-28 22:21 | XMS_ITS | Encounter Summary ---
Author Organization [facility] Address [address] [place] [address] Care Team Providers Care Acute Care Assistant Name Role Phone Physician, No Pcp Primary Care Provider Unavaila ble Encounter Details Date Type Department Care Team (Late st Contact Info) Description 02/28/2025 Lab Requisition [facility] - Main Lab 299 [facility] [place] [address] Ailyn Stringer MD [address] [phone] Malignant neoplasm of brain, unspecified (CMS/HCC V24, [...] Associated Diagnosis Comments COMPLETE BLOOD COUNT Routine 03/01/2025 7:42 AM EDT Malignant neoplasm of brain, unspecified ([facility] V24, [facility] V28) COMPREHENSIVE METABOLIC PANEL Routine 03/01/2025 7:42 AM EDT Malignant neoplasm of brain, unspecified ([facility] V24, [facility] V28) documented in this encounter Results * (ABNORMAL) Comprehensive metabolic panel (03/01/2025 7:42 AM EDT) Sodium 139 133 - 145 mmol/L LAB CHEMISTRY METHOD 03/01/2025 1:45 PM [facility] Potassium 3.8 3.5 - 5.5 mmol/L LAB CHEMISTRY METHOD 03/01/2025 1:45 PM [facility] Chloride 104 96 - 110 mmol/L LAB CHEMISTRY METHOD 03/01/2025 1:45 PM [facility] CO2 21 21 - 32 mmol/L LAB CHEMISTRY METHOD 03/01/2025 1:45 PM [facility] Anion Gap 14(H) 3 - 11 LAB CHEMISTRY METHOD 03/01/2025 1:45 PM [facility] Glucose 344(H) 70 - 100 mg/dL LAB CHEMISTRY METHOD 03/01/2025 1:45 PM [facility] BUN 11 5 - 25 mg/dL LAB CHEMISTRY METHOD 03/01/2025 1:45 PM [facility] Creatinine 0.81 0.70 - 1.30 mg/dL LAB CHEMISTRY METHOD 03/01/2025 1:45 PM [facility] eGFR 102 >=60 mL/min/1. 73m2 LAB CHEMISTRY METHOD 03/01/2025 1:45 PM [facility] Comment:Calculation based on the Chronic Kidney Disease Epidemiology Collaboration (CKD-EPI) equation refit without adjustment for race. BUN/Creatinine Ratio 13.6 LAB CHEMISTRY METHOD 03/01/2025 1:45 PM [facility] Calcium 9.0 8.5 - 10.5 mg/dL LAB CHEMISTRY METHOD 03/01/2025 1:45 PM [facility] AST (SGOT) 11 10 - 42 unit/L LAB CHEMISTRY METHOD 03/01/2025 1:45 PM [facility] ALT (SGPT) 33 10 - 60 unit/L LAB CHEMISTRY METHOD 03/01/2025 1:45 PM [facility] Alkaline Phosphatase 151(H) 42 - 121 unit/L LAB CHEMISTRY METHOD 03/01/2025 1:45 PM [facility] Total Protein 6.8 6.0 - 8.0 g/dL LAB CHEMISTRY METHOD 03/01/2025 1:45 PM [facility] Albumin 3.3 3.2 - 5.0 g/dL LAB CHEMISTRY METHOD 03/01/2025 1:45 PM [facility] Total Bilirubin 0.3 0.0 - 1.4 mg/dL LAB CHEMISTRY METHOD 03/01/2025 1:45 PM [facility] Blood Venous blood specimen / Unknown Venipuncture / Unknown 03/01/2025 7:42 AM EDT 03/01/2025 11:32 AM EDT Ailyn Stringer MD LAB BLOOD ORDERABLES Fin al Result [facility] [address] [place] [address], * (ABNORMAL) Complete blood count (03/01/2025 7:42 AM EDT) WBC 7.9 4.8 - 10.8 K/mcL LAB HEMETOLOGY METHOD 03/01/2025 12:52 PM EDT [facility] RBC 4.70 4.50 - 5.50 M/mcL LAB HEMETOLOGY METHOD 03/01/2025 12:52 PM EDT [facility] Hemoglobin 15.1 13.5 - 17.5 g/dL LAB HEMETOLOGY METHOD 03/01/2025 12:52 PM EDT [facility] Hematocrit 43.3 42.0 - 54.0 % LAB HEMETOLOGY METHOD 03/01/2025 12:52 PM EDT [facility] MCV 92.3 79.0 - 98.0 FL LAB HEMETOLOGY METHOD 03/01/2025 12:52 PM EDT [facility] MCH 32.2(H) 27.0 - 32.0 pcg LAB HEMETOLOGY METHOD 03/01/2025 12:52 PM EDT [facility] MCHC 34.9 32.0 - 37.0 g/dL LAB HEMETOLOGY METHOD 03/01/2025 12:52 PM EDT [facility] RDW 12.4 11.0 - 15.0 % LAB HEMETOLOGY METHOD 03/01/2025 12:52 PM EDT [facility] Platelets 238 130 - 400 K/mcL LAB HEMETOLOGY METHOD 03/01/2025 12:52 PM EDT [facility] MPV 11.8(H) 7.0 - 11.0 FL LAB HEMETOLOGY METHOD 03/01/2025 12:52 PM EDT [facility] NRBC 0.0 <1.0 % LAB HEMETOLOGY METHOD 03/01/2025 12:52 PM EDT [facility] NRBC Absolute 0.00 <0.10 K/mcL LAB HEMETOLOGY METHOD 03/01/2025 12:52 PM EDT [facility] Blood Venous blood specimen / Unknown Venipuncture / Unknown 03/01/2025 7:42 AM EDT 03/01/2025 11:32 AM EDT us Ailyn Stringer MD LAB BLOOD ORDERABLES Fin al Result [facility] [address] [place] [address], documented in this encounter Visit Diagnoses Diagnosis Malignant neoplasm of brain, unspecified (CMS/HCC V24, CMS/HCC V28) documented in this encounter Care Teams Acute Care Assistant Relationship Specialty Start Date End Date Physician, No Pcp PCP - General 11/05/24 documented as of this encounter
--- OUTSIDE RECORDS SUMMARY | 2025-07-28 22:21 | XMS_ITS | Encounter Summary ---
Author Organization [facility] Address [address] [place] [address] Care Team Providers Care Termite Control Servicer Name Role Phone Physician, No Pcp Primary Care Provider Unavaila ble Encounter Details Date Type Department Care Team (Late st Contact Info) Description 01/23/2025 Lab Requisition [facility] - Main Lab 299 [facility] [place] [address] Ailyn Stringer MD [address] [phone] Malignant neoplasm of brain, unspecified (CMS/HCC V24, [...] Associated Diagnosis Comments COMPLETE BLOOD COUNT Routine 01/25/2025 8:23 AM EDT Malignant neoplasm of brain, unspecified (CMS/HCC) COMPREHENSIVE METABOLIC PANEL Routine 01/25/2025 8:23 AM EDT Malignant neoplasm of brain, unspecified (CMS/HCC) documented in this encounter Results * (ABNORMAL) Comprehensive metabolic panel (01/25/2025 8:23 AM EDT) Sodium 139 133 - 145 mmol/L LAB CHEMISTRY METHOD 01/25/2025 1:48 PM [facility] Potassium 3.4(L) 3.5 - 5.5 mmol/L LAB CHEMISTRY METHOD 01/25/2025 1:48 PM [facility] Chloride 107 96 - 110 mmol/L LAB CHEMISTRY METHOD 01/25/2025 1:48 PM [facility] CO2 22 21 - 32 mmol/L LAB CHEMISTRY METHOD 01/25/2025 1:48 PM [facility] Anion Gap 10 3 - 11 LAB CHEMISTRY METHOD 01/25/2025 1:48 PM [facility] Glucose 165(H) 70 - 100 mg/dL LAB CHEMISTRY METHOD 01/25/2025 1:48 PM [facility] BUN 13 5 - 25 mg/dL LAB CHEMISTRY METHOD 01/25/2025 1:48 PM EDT [facility] Creatinine 0.72 0.70 - 1.30 mg/dL LAB CHEMISTRY METHOD 01/25/2025 1:48 PM [facility] eGFR 105 >=60 mL/min/1. 73m2 LAB CHEMISTRY METHOD 01/25/2025 1:48 PM [facility] Comment:Calculation based on the Chronic Kidney Disease Epidemiology Collaboration (CKD-EPI) equation refit without adjustment for race. BUN/Creatinine Ratio 18.1 LAB CHEMISTRY METHOD 01/25/2025 1:48 PM [facility] Calcium 8.7 8.5 - 10.5 mg/dL LAB CHEMISTRY METHOD 01/25/2025 1:48 PM [facility] AST (SGOT) 17 10 - 42 unit/L LAB CHEMISTRY METHOD 01/25/2025 1:48 PM [facility] ALT (SGPT) 44 10 - 60 unit/L LAB CHEMISTRY METHOD 01/25/2025 1:48 PM [facility] Alkaline Phosphatase 110 42 - 121 unit/L LAB CHEMISTRY METHOD 01/25/2025 1:48 PM [facility] Total Protein 6.1 6.0 - 8.0 g/dL LAB CHEMISTRY METHOD 01/25/2025 1:48 PM [facility] Albumin 3.2 3.2 - 5.0 g/dL LAB CHEMISTRY METHOD 01/25/2025 1:48 PM [facility] Total Bilirubin 0.3 0.0 - 1.4 mg/dL LAB CHEMISTRY METHOD 01/25/2025 1:48 PM [facility] Blood Venous blood specimen / Unknown Venipuncture / Unknown 01/25/2025 8:23 AM EDT 01/25/2025 11:32 AM EDT us Ailyn Stringer MD LAB BLOOD ORDERABLES Fin al Result [facility] [address] [place] [address], * (ABNORMAL) Complete blood count (01/25/2025 8:23 AM EDT) [facility] WBC 6.9 4.8 - 10.8 K/mcL LAB HEMETOLOGY METHOD 01/25/2025 12:42 PM EDT [facility] RBC 4.40(L) 4.50 - 5.50 M/mcL LAB HEMETOLOGY METHOD 01/25/2025 12:42 PM EDT [facility] Hemoglobin 14.3 13.5 - 17.5 g/dL LAB HEMETOLOGY METHOD 01/25/2025 12:42 PM EDT [facility] Hematocrit 41.7(L) 42.0 - 54.0 % LAB HEMETOLOGY METHOD 01/25/2025 12:42 PM EDT [facility] MCV 94.8 79.0 - 98.0 FL LAB HEMETOLOGY METHOD 01/25/2025 12:42 PM EDT [facility] MCH 32.5(H) 27.0 - 32.0 pcg LAB HEMETOLOGY METHOD 01/25/2025 12:42 PM EDT [facility] MCHC 34.3 32.0 - 37.0 g/dL LAB HEMETOLOGY METHOD 01/25/2025 12:42 PM EDT [facility] RDW 12.6 11.0 - 15.0 % LAB HEMETOLOGY METHOD 01/25/2025 12:42 PM EDT [facility] Platelets 242 130 - 400 K/mcL LAB HEMETOLOGY METHOD 01/25/2025 12:42 PM EDT [facility] MPV 10.6 7.0 - 11.0 FL LAB HEMETOLOGY METHOD 01/25/2025 12:42 PM EDT [facility] NRBC 0.0 <1.0 % LAB HEMETOLOGY METHOD 01/25/2025 12:42 PM EDT [facility] NRBC Absolute 0.00 <0.10 K/mcL LAB HEMETOLOGY METHOD 01/25/2025 12:42 PM EDT [facility] Blood Venous blood specimen / Unknown Venipuncture / Unknown 01/25/2025 8:23 AM EDT 01/25/2025 11:32 AM EDT us Ailyn Stringer MD LAB BLOOD ORDERABLES Fin al Result [facility] [address] [place] [address], documented in this encounter Visit Diagnoses Diagnosis Malignant neoplasm of brain, unspecified (CMS/HCC V24, CMS/HCC V28) documented in this encounter Care Teams Termite Control Servicer Relationship Specialty Start Date End Date Physician, No Pcp PCP - General 11/05/24 documented as of this encounter
--- OUTSIDE RECORDS SUMMARY | 2025-07-28 22:21 | XMS_ITS | Encounter Summary ---
Author Organization [facility] Address [address] [place] [address] Care Team Providers Care Academic Affairs Assistant Name Role Phone Physician, No Pcp Primary Care Provider Unavaila ble Encounter Details Date Type Department Care Team (Late st Contact Info) Description 01/03/2025 Lab Requisition [facility] - Main Lab 299 [facility] [place] [address] Ailyn Stringer MD [address] [phone] Encounter for therapeutic drug level monitoring Social [...] Associated Diagnosis Comments PHENYTOIN LEVEL, TOTAL Routine 01/03/2025 5:26 AM EST Encounter for therapeutic drug level monitoring documented in this encounter Results * Phenytoin level total (01/03/2025 5:26 AM EST) Phenytoin Level 10.2 10.0 - 20.0 mcg/mL LAB CHEMISTRY METHOD 01/03/2025 12:07 PM EST [facility] Blood Venous blood specimen / Unknown Venipuncture / Unknown 01/03/2025 5:26 AM EST 01/03/2025 11:19 AM EST Ailyn Stringer MD LAB BLOOD ORDERABLES Fin al Result [facility] [address] [place] [address], documented in this encounter Visit Diagnoses Diagnosis Encounter for therapeutic drug level monitoring documented in this encounter Care Teams Academic Affairs Assistant Relationship Specialty Start Date End Date Physician, No Pcp PCP - General 11/05/24 documented as of this encounter
--- OUTSIDE RECORDS SUMMARY | 2025-07-28 22:21 | XMS_ITS | Encounter Summary ---
Author Organization [facility] Address [address] [place] [address] Care Team Providers Care Retail And Restaurant Associate Name Role Phone Physician, No Pcp Primary Care Provider Unavaila ble Encounter Details Date Type Department Care Team (Late st Contact Info) Description 02/08/2025 Lab Requisition [facility] - Main Lab 299 [facility] [place] [address] Ailyn Stringer MD [address] [phone] Malignant neoplasm of brain, unspecified (CMS/HCC V24, [...] Associated Diagnosis Comments COMPLETE BLOOD COUNT Routine 02/09/2025 5:47 AM EDT Malignant neoplasm of brain, unspecified COMPREHENSIVE METABOLIC PANEL Routine 02/09/2025 5:47 AM EDT Malignant neoplasm of brain, unspecified documented in this encounter Results * (ABNORMAL) Comprehensive metabolic panel (02/09/2025 5:47 AM EDT) Sodium 139 133 - 145 mmol/L LAB CHEMISTRY METHOD 02/09/2025 10:28 AM [facility] Potassium 4.3 3.5 - 5.5 mmol/L LAB CHEMISTRY METHOD 02/09/2025 10:28 AM [facility] Chloride 104 96 - 110 mmol/L LAB CHEMISTRY METHOD 02/09/2025 10:28 AM [facility] CO2 27 21 - 32 mmol/L LAB CHEMISTRY METHOD 02/09/2025 10:28 AM [facility] Anion Gap 8 3 - 11 LAB CHEMISTRY METHOD 02/09/2025 10:28 AM [facility] Glucose 235(H) 70 - 100 mg/dL LAB CHEMISTRY METHOD 02/09/2025 10:28 AM [facility] BUN 13 5 - 25 mg/dL LAB CHEMISTRY METHOD 02/09/2025 10:28 AM [facility] Creatinine 0.65(L) 0.70 - 1.30 mg/dL LAB CHEMISTRY METHOD 02/09/2025 10:28 AM [facility] eGFR 109 >=60 mL/min/1. 73m2 LAB CHEMISTRY METHOD 02/09/2025 10:28 AM [facility] Comment:Calculation based on the Chronic Kidney Disease Epidemiology Collaboration (CKD-EPI) equation refit without adjustment for race. BUN/Creatinine Ratio 20.0 LAB CHEMISTRY METHOD 02/09/2025 10:28 AM [facility] Calcium 9.1 8.5 - 10.5 mg/dL LAB CHEMISTRY METHOD 02/09/2025 10:28 AM [facility] AST (SGOT) 11 10 - 42 unit/L LAB CHEMISTRY METHOD 02/09/2025 10:28 AM [facility] ALT (SGPT) 37 10 - 60 unit/L LAB CHEMISTRY METHOD 02/09/2025 10:28 AM [facility] Alkaline Phosphatase 148(H) 42 - 121 unit/L LAB CHEMISTRY METHOD 02/09/2025 10:28 AM [facility] Total Protein 6.6 6.0 - 8.0 g/dL LAB CHEMISTRY METHOD 02/09/2025 10:28 AM [facility] Albumin 3.2 3.2 - 5.0 g/dL LAB CHEMISTRY METHOD 02/09/2025 10:28 AM [facility] Total Bilirubin 0.2 0.0 - 1.4 mg/dL LAB CHEMISTRY METHOD 02/09/2025 10:28 AM [facility] Blood Venous blood specimen / Unknown Venipuncture / Unknown 02/09/2025 5:47 AM EDT 02/09/2025 9:25 AM EDT us Ailyn Stringer MD LAB BLOOD ORDERABLES Fin al Result [facility] [address] [place] [address], * Complete blood count (02/09/2025 5:47 AM EDT) [facility] Signature WBC 6.2 4.8 - 10.8 K/mcL LAB HEMETOLOGY METHOD 02/09/2025 9:36 AM EDT [facility] RBC 4.50 4.50 - 5.50 M/mcL LAB HEMETOLOGY METHOD 02/09/2025 9:36 AM EDT [facility] Hemoglobin 14.2 13.5 - 17.5 g/dL LAB HEMETOLOGY METHOD 02/09/2025 9:36 AM EDT [facility] Hematocrit 42.2 42.0 - 54.0 % LAB HEMETOLOGY METHOD 02/09/2025 9:36 AM EDT [facility] MCV 94.6 79.0 - 98.0 FL LAB HEMETOLOGY METHOD 02/09/2025 9:36 AM EDT [facility] MCH 31.8 27.0 - 32.0 pcg LAB HEMETOLOGY METHOD 02/09/2025 9:36 AM EDT [facility] MCHC 33.6 32.0 - 37.0 g/dL LAB HEMETOLOGY METHOD 02/09/2025 9:36 AM EDT [facility] RDW 12.3 11.0 - 15.0 % LAB HEMETOLOGY METHOD 02/09/2025 9:36 AM EDT [facility] Platelets 254 130 - 400 K/mcL LAB HEMETOLOGY METHOD 02/09/2025 9:36 AM EDT [facility] MPV 11.0 7.0 - 11.0 FL LAB HEMETOLOGY METHOD 02/09/2025 9:36 AM EDT [facility] NRBC 0.0 <1.0 % LAB HEMETOLOGY METHOD 02/09/2025 9:36 AM EDT [facility] NRBC Absolute 0.00 <0.10 K/mcL LAB HEMETOLOGY METHOD 02/09/2025 9:36 AM EDT [facility] Blood Venous blood specimen / Unknown Venipuncture / Unknown 02/09/2025 5:47 AM EDT 02/09/2025 9:25 AM EDT us Ailyn Stringer MD LAB BLOOD ORDERABLES Fin al Result [facility] [address] [place] [address], documented in this encounter Visit Diagnoses Diagnosis Malignant neoplasm of brain, unspecified (CMS/HCC V24, CMS/HCC V28) documented in this encounter Care Teams Retail And Restaurant Associate Relationship Specialty Start Date End Date Physician, No Pcp PCP - General 11/05/24 documented as of this encounter
--- OUTSIDE RECORDS SUMMARY | 2025-07-28 22:21 | XMS_ITS | Encounter Summary ---
Author Organization [facility] Address [address] [place] [address] Care Team Providers Care Scaffold Worker Name Role Phone Physician, No Pcp Primary Care Provider Unavaila ble Encounter Details Date Type Department Care Team (Late st Contact Info) Description 11/12/2024 Lab Requisition [facility] - Main Lab 299 [facility] [place] [address] Ailyn Stringer MD [address] [phone] Other seizures (CMS/HCC V24, CMS/HCC V28) Social History Tobacco [...] Associated Diagnosis Comments COMPLETE BLOOD COUNT Routine 11/12/2024 4:48 AM EST Other seizures (CMS/HCC) COMPREHENSIVE METABOLIC PANEL Routine 11/12/2024 4:48 AM EST Other seizures ([facility]/HCC) documented in this encounter Results * (ABNORMAL) Comprehensive metabolic panel (11/12/2024 4:48 AM EST) Sodium 139 133 - 145 mmol/L LAB CHEMISTRY METHOD 11/12/2024 11:[address] [facility] Potassium 4.2 3.5 - 5.5 mmol/L LAB CHEMISTRY METHOD 11/12/2024 11:[address] [facility] Chloride 108 96 - 110 mmol/L LAB CHEMISTRY METHOD 11/12/2024 11:[address] [facility] CO2 28 21 - 32 mmol/L LAB CHEMISTRY METHOD 11/12/2024 11:[address] [facility] Anion Gap 3 3 - 11 LAB CHEMISTRY METHOD 11/12/2024 11:[address] [facility] Glucose 82 70 - 100 mg/dL LAB CHEMISTRY METHOD 11/12/2024 11:[address] [facility] BUN 14 5 - 25 mg/dL LAB CHEMISTRY METHOD 11/12/2024 11:[address] [facility] Creatinine 0.76 0.70 - 1.30 mg/dL LAB CHEMISTRY METHOD 11/12/2024 11:[address] [facility] eGFR 104 >=60 mL/min/1. 73m2 LAB CHEMISTRY METHOD 11/12/2024 11:[address] [facility] Comment:Calculation based on the Chronic Kidney Disease Epidemiology Collaboration (CKD-EPI) equation refit without adjustment for race. BUN/Creatinine Ratio 18.4 LAB CHEMISTRY METHOD 11/12/2024 11:[address] [facility] Calcium 8.2(L) 8.5 - 10.5 mg/dL LAB CHEMISTRY METHOD 11/12/2024 11:[address] [facility] AST (SGOT) 33 10 - 42 unit/L LAB CHEMISTRY METHOD 11/12/2024 11:[address] [facility] ALT (SGPT) 68(H) 10 - 60 unit/L LAB CHEMISTRY METHOD 11/12/2024 11:[address] [facility] Alkaline Phosphatase 108 42 - 121 unit/L LAB CHEMISTRY METHOD 11/12/2024 11:[address] [facility] Total Protein 6.0 6.0 - 8.0 g/dL LAB CHEMISTRY METHOD 11/12/2024 11:[address] [facility] Albumin 3.2 3.2 - 5.0 g/dL LAB CHEMISTRY METHOD 11/12/2024 11:[address] [facility] Total Bilirubin 0.2 0.0 - 1.4 mg/dL LAB CHEMISTRY METHOD 11/12/2024 11:[address] [facility] Blood Venous blood specimen / Unknown Venipuncture / Unknown 11/12/2024 4:48 AM EST 11/12/2024 10:06 AM EST us Ailyn Stringer MD LAB BLOOD ORDERABLES Fin al Result [facility] [address] [place] [address], * (ABNORMAL) Complete blood count (11/12/2024 4:48 AM EST) [facility] WBC 6.8 4.8 - 10.8 K/mcL LAB HEMETOLOGY METHOD 11/12/2024 10:[address] [facility] RBC 4.00(L) 4.50 - 5.50 M/mcL LAB HEMETOLOGY METHOD 11/12/2024 10:[address] [facility] Hemoglobin 12.9(L) 13.5 - 17.5 g/dL LAB HEMETOLOGY METHOD 11/12/2024 10:[address] [facility] Hematocrit 39.0(L) 42.0 - 54.0 % LAB HEMETOLOGY METHOD 11/12/2024 10:[address] [facility] MCV 98.5(H) 79.0 - 98.0 FL LAB HEMETOLOGY METHOD 11/12/2024 10:[address] [facility] MCH 32.6(H) 27.0 - 32.0 pcg LAB HEMETOLOGY METHOD 11/12/2024 10:[address] [facility] MCHC 33.1 32.0 - 37.0 g/dL LAB HEMETOLOGY METHOD 11/12/2024 10:[address] [facility] RDW 13.2 11.0 - 15.0 % LAB HEMETOLOGY METHOD 11/12/2024 10:[address] [facility] Platelets 234 130 - 400 K/mcL LAB HEMETOLOGY METHOD 11/12/2024 10:[address] [facility] MPV 11.0 7.0 - 11.0 FL LAB HEMETOLOGY METHOD 11/12/2024 10:[address] [facility] NRBC 0.0 <1.0 % LAB HEMETOLOGY METHOD 11/12/2024 10:[address] [facility] NRBC Absolute 0.00 <0.10 K/mcL LAB HEMETOLOGY METHOD 11/12/2024 10:[address] [facility] Blood Venous blood specimen / Unknown Venipuncture / Unknown 11/12/2024 4:48 AM EST 11/12/2024 10:06 AM EST us Ailyn Stringer MD LAB BLOOD ORDERABLES Fin al Result [facility] [address] [place] [address], documented in this encounter Visit Diagnoses Diagnosis Other seizures (CMS/HCC V24, CMS/HCC V28) documented in this encounter Care Teams Scaffold Worker Relationship Specialty Start Date End Date Physician, No Pcp PCP - General 11/05/24 documented as of this encounter
--- OUTSIDE RECORDS SUMMARY | 2025-07-28 22:21 | XMS_ITS | Encounter Summary ---
Author Organization [facility] Address [address] [place] [address] Care Team Providers Care Wellness Manager Name Role Phone Physician, No Pcp Primary Care Provider Unavaila ble Encounter Details Date Type Department Care Team (Late st Contact Info) Description 01/11/2025 Lab Requisition [facility] - Main Lab 299 [facility] [place] [address] Ailyn Stringer MD [address] [phone] Encounter for therapeutic drug level monitoring Social [...] Procedure Name Priority Date/Time Associated Diagnosis Comments SST - GOLD Routine 01/12/2025 5:48 AM EST Encounter for therapeutic drug level monitoring PHENYTOIN LEVEL, FREE Routine 01/12/2025 5:48 AM EST Encounter for therapeutic drug level monitoring documented in this encounter Results * SST tube (01/12/2025 5:48 AM EST) Extra Tube Hold for add-ons. 01/12/2025 10:01 AM EST [facility] Comment:Auto resulted. Blood Venous blood specimen / Unknown Venipuncture / Unknown 01/12/2025 5:48 AM EST 01/12/2025 8:56 AM EST Ailyn Stringer MD LAB BLOOD ORDERABLES Fin al Result [facility] [address] [place] [address], * Phenytoin level free (01/12/2025 5:48 AM EST) Phenytoin, Free (Dilantin) 1.2 0.8 - 2.0 ug/mL 01/14/2025 12:08 PM EST [facility] Comment: Phenytoin free toxic level: >3.0 ug/mL If applicable, any drug confirmation testing reported here was developed and the performance characteristics determined by [facility]. This confirmation testing has not been cleared or approved by the FDA. The laboratory is regulated under CLIA as qualified to perform high-complexity testing. This test is used for patient testing purposes. It should not be regarded as investigational or for research. Test performed at [facility], [address], [place] [address] Vee Em MD, PhD - [employer]or Blood Venous blood specimen / Unknown Venipuncture / Unknown 01/12/2025 5:48 AM EST 01/12/2025 8:56 AM EST us Ailyn Stringer MD LAB BLOOD ORDERABLES Fin al Result [facility] [address] [place] [address] documented in this encounter Visit Diagnoses Diagnosis Encounter for therapeutic drug level monitoring documented in this encounter Care Teams Wellness Manager Relationship Specialty Start Date End Date Physician, No Pcp PCP - General 11/05/24 documented as of this encounter
--- OUTSIDE RECORDS SUMMARY | 2025-07-28 22:21 | XMS_ITS | Encounter Summary ---
Author Organization [facility] Address [address] [place] [address] Care Team Providers Care Trick Rodeo Rider Name Role Phone Physician, No Pcp Primary Care Provider Unavaila ble Encounter Details Date Type Department Care Team (Late st Contact Info) Description 02/07/2025 Lab Requisition [facility] - Main Lab 299 [facility] [place] [address] Ailyn Stringer MD [address] [phone] Malignant neoplasm of brain, unspecified (CMS/HCC V24, [...] Assessment Author No 11/06/2024 6:22 AM Jigna Cáhvez RN * Because of a physical, mental, [...] V28) documented in this encounter Care Teams Trick Rodeo Rider Relationship Specialty Start Date End Date Physician, No Pcp PCP - General 11/05/24 documented as of this encounter
--- OUTSIDE RECORDS SUMMARY | 2025-07-28 22:21 | XMS_ITS | Encounter Summary ---
Author Organization [facility] Address [address] [place] [address] Care Team Providers Care Talent Solutions Manager Name Role Phone Physician, No Pcp Primary Care Provider Unavaila ble Encounter Details Date Type Department Care Team (Late st Contact Info) Description 01/22/2025 Lab Requisition [facility] - Main Lab 299 [facility] [place] [address] Ailyn Stringer MD [address] [phone] Epilepsy, unspecified, intractable, without status epilepticus (CMS/HCC V24, CMS/HCC V28) Social History Tobacco [...] Associated Diagnosis Comments PHENYTOIN LEVEL, TOTAL Routine 01/22/2025 6:50 AM EDT Epilepsy, unspecified, intractable, without status epilepticus (CMS/HCC) documented in this encounter Results * Phenytoin level total (01/22/2025 6:50 AM EDT) Phenytoin Level 17.2 10.0 - 20.0 mcg/mL LAB CHEMISTRY METHOD 01/22/2025 10:30 AM EDT [facility] Blood Venous blood specimen / Unknown Venipuncture / Unknown 01/22/2025 6:50 AM EDT 01/22/2025 9:22 AM EDT us Ailyn Stringer MD LAB BLOOD ORDERABLES Fin al Result [facility] [address] [place] [address], documented in this encounter Visit Diagnoses Diagnosis Epilepsy, unspecified, intractable, without status epilepticus (CMS/HCC V24, CMS/HCC V28) documented in this encounter Care Teams Talent Solutions Manager Relationship Specialty Start Date End Date Physician, No Pcp PCP - General 11/05/24 documented as of this encounter
--- OUTSIDE RECORDS SUMMARY | 2025-07-28 22:21 | XMS_ITS | Encounter Summary ---
Author Organization [facility] Address [address] [place] [address] Care Team Providers Care Crayon Sorting Machine Feeder Name Role Phone Physician, No Pcp Primary Care Provider Unavaila ble Encounter Details Date Type Department Care Team (Late st Contact Info) Description 02/16/2025 Lab Requisition [facility] - Main Lab [address] [facility] [place] [address] Ailyn Stringer MD [address] [phone] Unspecified convulsions (CMS/HCC V24, CMS/HCC V28); Epilepsy, unspecified, not intractable, with status epilepticus (CMS/HCC V24, CMS/HCC V28); Other custodial (current) drug therapy Social History Tobacco Use Types Packs/Day Years [...] Date Author No 11/06/2024 6:22 AM Jigna Jennings RN documented in this encounter Plan of Treatment Not on file documented as of this encounter Procedures Procedure Name Priority Date/Time Associated Diagnosis Comments COMPLETE BLOOD COUNT Routine 02/16/2025 5:29 AM EDT Unspecified convulsions (CMS/HCC) Epilepsy, unspecified, not intractable, with status epilepticus Other custodial (current) drug therapy HEMOGLOBIN A1C Routine 02/16/2025 5:29 AM EDT Unspecified convulsions (CMS/HCC) Epilepsy, unspecified, not intractable, with status epilepticus Other superintendent container terminal (current) drug therapy BASIC METABOLIC PANEL Routine 02/16/2025 5:29 AM EDT Unspecified convulsions (CMS/HCC) Epilepsy, unspecified, not intractable, with status epilepticus Other superintendent container terminal (current) drug therapy documented in this encounter Results * (ABNORMAL) Hemoglobin A1c (02/16/2025 5:29 AM EDT) Hemoglobin A1C 9.0(H) <6.5 % LAB CHEMISTRY METHOD 02/16/2025 1:58 PM EDT [facility] Mean Bld Glu Estim. 212 mg/dL LAB CHEMISTRY METHOD 02/16/2025 1:58 PM EDT [facility] Blood Venous blood specimen / Unknown Venipuncture / Unknown 02/16/2025 5:29 AM EDT 02/16/2025 8:08 AM EDT us Ailyn Stringer MD LAB BLOOD ORDERABLES Fin al Result [facility] [address] [place] [address], [place] [phone] * (ABNORMAL) Basic metabolic panel (02/16/2025 5:29 AM EDT) Sodium 135 133 - 145 mmol/L LAB CHEMISTRY METHOD 02/16/2025 9:13 AM [facility] Potassium 4.1 3.5 - 5.5 mmol/L LAB CHEMISTRY METHOD 02/16/2025 9:13 AM [facility] Chloride 102 96 - 110 mmol/L LAB CHEMISTRY METHOD 02/16/2025 9:13 AM [facility] CO2 27 21 - 32 mmol/L LAB CHEMISTRY METHOD 02/16/2025 9:13 AM [facility] Anion Gap 6 3 - 11 LAB CHEMISTRY METHOD 02/16/2025 9:13 AM [facility] Glucose 316(H) 70 - 100 mg/dL LAB CHEMISTRY METHOD 02/16/2025 9:13 AM [facility] BUN 14 5 - 25 mg/dL LAB CHEMISTRY METHOD 02/16/2025 9:13 AM [facility] Creatinine 0.72 0.70 - 1.30 mg/dL LAB CHEMISTRY METHOD 02/16/2025 9:13 AM [facility] eGFR 105 >=60 mL/min/1. 73m2 LAB CHEMISTRY METHOD 02/16/2025 9:13 AM [facility] Comment:Calculation based on the Chronic Kidney Disease Epidemiology Collaboration (CKD-EPI) equation refit without adjustment for race. BUN/Creatinine Ratio 19.4 LAB CHEMISTRY METHOD 02/16/2025 9:13 AM [facility] Calcium 9.2 8.5 - 10.5 mg/dL LAB CHEMISTRY METHOD 02/16/2025 9:13 AM EDT [facility] Blood Venous blood specimen / Unknown Venipuncture / Unknown 02/16/2025 5:29 AM EDT 02/16/2025 8:08 AM EDT us Ailyn Stringer MD LAB BLOOD ORDERABLES Fin al Result [facility] [address] [place] [address], * (ABNORMAL) Complete blood count (02/16/2025 5:29 AM EDT) WBC 8.4 4.8 - 10.8 K/mcL LAB HEMETOLOGY METHOD 02/16/2025 8:52 AM EDT [facility] RBC 4.80 4.50 - 5.50 [facility] LAB [facility] Hemoglobin 15.5 13.5 - 17.5 g/dL LAB HEMETOLOGY METHOD 02/16/2025 8:52 AM [facility] Hematocrit 45.8 42.0 - 54.0 % LAB HEMETOLOGY METHOD 02/16/2025 8:52 AM T [facility] MCV 95.2 79.0 - 98.0 FL LAB HEMETOLOGY METHOD 02/16/2025 8:52 AM [facility] MCH 32.2(H) 27.0 - 32.0 pcg LAB HEMETOLOGY METHOD 02/16/2025 8:52 AM [facility] MCHC 33.8 32.0 - 37.0 g/dL LAB HEMETOLOGY METHOD 02/16/2025 8:52 AM [facility] RDW 12.3 11.0 - 15.0 % LAB HEMETOLOGY METHOD 02/16/2025 8:52 AM EDT [facility] Platelets 270 130 - 400 K/mcL LAB HEMETOLOGY METHOD 02/16/2025 8:52 AM EDT [facility] MPV 11.5(H) 7.0 - 11.0 FL LAB HEMETOLOGY METHOD 02/16/2025 8:52 AM EDT [facility] NRBC 0.0 <1.0 % LAB HEMETOLOGY METHOD 02/16/2025 8:52 AM EDT [facility] NRBC Absolute 0.00 <0.10 K/mcL [facility] 02/16/2025 8:52 AM EDT [facility] Blood Venous blood specimen / Unknown Venipuncture / Unknown 02/16/2025 5:29 AM EDT 02/16/2025 8:08 AM EDT us Ailyn Stringer MD LAB BLOOD ORDERABLES Fin al Result [facility] [address] [place] [address], documented in this encounter Visit Diagnoses Diagnosis Unspecified convulsions (CMS/HCC V24, CMS/HCC V28) Epilepsy, unspecified, not intractable, with status epilepticus (CMS/HCC V24, CMS/HCC V28) Other superintendent container terminal (current) drug therapy documented in this encounter Care Teams Crayon Sorting Machine Feeder Relationship Specialty Start Date End Date Physician, No Pcp PCP - General 11/05/24 documented as of this encounter
--- OUTSIDE RECORDS SUMMARY | 2025-07-28 22:21 | XMS_ITS | Encounter Summary ---
Author Organization [facility] Address [address] [place] [address] Care Team Providers Care Zoning Engineer Name Role Phone Physician, No Pcp Primary Care Provider Unavaila ble Encounter Details Date Type Department Care Team (Late st Contact Info) Description 02/26/2025 Lab Requisition [facility] - Main Lab [address] [facility] [place] [address] Ailyn Stringer MD [address] [phone] Other seizures (CMS/HCC V24, CMS/HCC V28) Social [...] Associated Diagnosis Comments PHENYTOIN LEVEL, TOTAL Routine 02/26/2025 5:06 AM EDT Other seizures (CMS/HCC V24, CMS/HCC V28) documented in this encounter Results * Phenytoin level total (02/26/2025 5:06 AM EDT) Phenytoin Level 15.2 10.0 - 20.0 mcg/mL LAB CHEMISTRY METHOD 02/26/2025 10:[address] [facility] Blood Venous blood specimen / Unknown Venipuncture / Unknown 02/26/2025 5:06 AM EDT 02/26/2025 9:26 AM EDT us Ailyn Stringer MD LAB BLOOD ORDERABLES Fin al Result [facility] [address] [place] [address], documented in this encounter Visit Diagnoses Diagnosis Other seizures (CMS/HCC V24, CMS/HCC V28) documented in this encounter Care Teams Zoning Engineer Relationship Specialty Start Date End Date Physician, No Pcp PCP - General 11/05/24 documented as of this encounter
--- OUTSIDE RECORDS SUMMARY | 2025-07-28 22:21 | XMS_ITS | Encounter Summary ---
Author Organization [facility] Address [address] [place] [address] Care Team Providers Care Contact Worker Lithography Name Role Phone Physician, No Pcp Primary Care Provider Unavaila ble Encounter Details Date Type Department Care Team (Late st Contact Info) Description 11/13/2024 Lab Requisition [facility] - Main Lab [address] [facility] [place] [address] Ailyn Stringer MD [address] [phone] Malignant neoplasm of brain, unspecified (CMS/HCC V24, [...] Associated Diagnosis Comments COMPLETE BLOOD COUNT Routine 11/16/2024 6:33 AM EST Malignant neoplasm of brain, unspecified (CMS/HCC) COMPREHENSIVE METABOLIC PANEL Routine 11/16/2024 6:33 AM EST Malignant neoplasm of brain, unspecified (CMS/HCC) documented in this encounter Results * (ABNORMAL) Comprehensive metabolic panel (11/16/2024 6:33 AM EST) Sodium 140 133 - 145 mmol/L LAB CHEMISTRY METHOD 11/16/2024 12:36 PM [facility] Potassium 3.8 3.5 - 5.5 mmol/L LAB CHEMISTRY METHOD 11/16/2024 12:36 PM [facility] Chloride 108 96 - 110 mmol/L LAB CHEMISTRY METHOD 11/16/2024 12:36 PM [facility] CO2 27 21 - 32 mmol/L LAB CHEMISTRY METHOD 11/16/2024 12:36 PM [facility] Anion Gap 5 3 - 11 LAB CHEMISTRY METHOD 11/16/2024 12:36 PM [facility] Glucose 84 70 - 100 mg/dL LAB CHEMISTRY METHOD 11/16/2024 12:36 PM [facility] BUN 14 5 - 25 mg/dL LAB CHEMISTRY METHOD 11/16/2024 12:36 PM [facility] Creatinine 0.77 0.70 - 1.30 mg/dL LAB CHEMISTRY METHOD 11/16/2024 12:36 PM [facility] eGFR 104 >=60 mL/min/1. 73m2 LAB CHEMISTRY METHOD 11/16/2024 12:36 PM [facility] Comment:Calculation based on the Chronic Kidney Disease Epidemiology Collaboration (CKD-EPI) equation refit without adjustment for race. BUN/Creatinine Ratio 18.2 LAB CHEMISTRY METHOD 11/16/2024 12:36 PM [facility] Calcium 8.9 8.5 - 10.5 mg/dL LAB CHEMISTRY METHOD 11/16/2024 12:36 PM [facility] AST (SGOT) 36 10 - 42 unit/L LAB CHEMISTRY METHOD 11/16/2024 12:36 PM [facility] ALT (SGPT) 90(H) 10 - 60 unit/L LAB CHEMISTRY METHOD 11/16/2024 12:36 PM [facility] Alkaline Phosphatase 102 42 - 121 unit/L LAB CHEMISTRY METHOD 11/16/2024 12:36 PM [facility] Total Protein 6.3 6.0 - 8.0 g/dL LAB CHEMISTRY METHOD 11/16/2024 12:36 PM [facility] Albumin 3.4 3.2 - 5.0 g/dL LAB CHEMISTRY METHOD 11/16/2024 12:36 PM [facility] Total Bilirubin 0.3 0.0 - 1.4 mg/dL LAB CHEMISTRY METHOD 11/16/2024 12:36 PM [facility] Blood Venous blood specimen / Unknown Venipuncture / Unknown 11/16/2024 6:33 AM EST 11/16/2024 10:58 AM EST us Ailyn Stringer MD LAB BLOOD ORDERABLES Fin al Result [facility] [address] [place] [address], * (ABNORMAL) Complete blood count (11/16/2024 6:33 AM EST) [facility] WBC 6.0 4.8 - 10.8 K/mcL LAB HEMETOLOGY METHOD 11/16/2024 11:56 AM [facility] RBC 4.10(L) 4.50 - 5.50 M/mcL LAB HEMETOLOGY METHOD 11/16/2024 11:56 AM [facility] Hemoglobin 13.3(L) 13.5 - 17.5 g/dL LAB HEMETOLOGY METHOD 11/16/2024 11:56 AM [facility] Hematocrit 40.2(L) 42.0 - 54.0 % LAB HEMETOLOGY METHOD 11/16/2024 11:56 AM [facility] MCV 98.8(H) 79.0 - 98.0 FL LAB HEMETOLOGY METHOD 11/16/2024 11:56 AM [facility] MCH 32.7(H) 27.0 - 32.0 pcg LAB HEMETOLOGY METHOD 11/16/2024 11:56 AM [facility] MCHC 33.1 32.0 - 37.0 g/dL LAB HEMETOLOGY METHOD 11/16/2024 11:56 AM [facility] RDW 13.3 11.0 - 15.0 % LAB HEMETOLOGY METHOD 11/16/2024 11:56 AM [facility] Platelets 246 130 - 400 K/mcL LAB HEMETOLOGY METHOD 11/16/2024 11:56 AM [facility] MPV 10.7 7.0 - 11.0 FL LAB HEMETOLOGY METHOD 11/16/2024 11:56 AM [facility] NRBC 0.0 <1.0 % LAB HEMETOLOGY METHOD 11/16/2024 11:56 AM EST [facility] NRBC Absolute 0.00 <0.10 K/mcL LAB HEMETOLOGY METHOD 11/16/2024 11:56 AM EST [facility] Blood Venous blood specimen / Unknown Venipuncture / Unknown 11/16/2024 6:33 AM EST 11/16/2024 10:58 AM EST us Ailyn Stringer MD LAB BLOOD ORDERABLES Fin al Result [facility] [address] [place] [address], documented in this encounter Visit Diagnoses Diagnosis Malignant neoplasm of brain, unspecified (CMS/HCC V24, CMS/HCC V28) documented in this encounter Care Teams Contact Worker Lithography Relationship Specialty Start Date End Date Physician, No Pcp PCP - General 11/05/24 documented as of this encounter
--- OUTSIDE RECORDS SUMMARY | 2025-07-28 22:21 | XMS_ITS | Clinical Summary ---
Author Organization [facility] Address [address] [place] [address] Phone Care Team Providers Care Product Development Coordinator Name Role Phone Physician, No Pcp Primary Care Provider Unavaila ble Allergies No known active allergies Medications carBAMazepine (TEGretol) 200 mg tablet Take 3 tablets (600 mg total) by mouth 2 (two) times a day. 10/26/2024 Active clonazePAM (KlonoPIN) 1 mg tablet Take 2 tablets (2 mg total) by mouth at bedtime. 10/23/2024 Active levETIRAcetam (KEPPRA) 750 mg tablet Take 2 tablets (1,500 mg total) by mouth 2 (two) times a day. 08/23/2024 Active PARoxetine (PAXIL) 20 mg tablet Take 1 tablet (20 mg total) by mouth 1 (one) time each day in the morning. 10/03/2024 Active phenytoin (DILANTIN) 100 mg ER capsule Take 4 capsules (400 mg total) by mouth 2 (two) times a day. 09/02/2024 Active dexAMETHasone (DECADRON) 4 mg tablet Take 1 tablet (4 mg total) by mouth 2 (two) times a day for 40 doses. 40 each 11/02/2024 Active multivitamin tablet Take 1 tablet by mouth 1 (one) time each day. 30 tablet 11/02/2024 Active nicotine (NICODERM CQ) 14 mg/[address] 1 patch on the skin 1 (one) time each day at the same time for 14 days. 14 each 11/02/2024 Active carBAMazepine (TEGretol) 200 mg tablet Take 3 tablets (600 mg total) by mouth 2 (two) times a day. 10/26/2024 Active dexAMETHasone (DECADRON) 4 mg tablet Take 1 tablet (4 mg total) by mouth 2 (two) times a day. 11/02/2024 Active levETIRAcetam (KEPPRA) 750 mg tablet Take 2 tablets (1,500 mg total) by mouth 2 (two) times a day. 08/18/2013 Active PARoxetine (PAXIL) 20 mg tablet Take 1 tablet (20 mg total) by mouth 1 (one) time each day in the morning. Active phenytoin (DILANTIN) 100 mg ER capsule Take 4 capsules (400 mg total) by mouth 2 (two) times a day. Active folic acid (FOLVITE) 1 mg tablet Take 1 tablet (1 mg total) by mouth 1 (one) time each day. 04/25/2024 Active nicotine (NICODERM CQ) 14 mg/24 hrIndications:s moking cessation Place 1 patch on the skin 1 (one) time each day at the same time. Active multivitamin tablet Take 1 tablet by mouth 1 (one) time each day. Active thiamine 100 mg tablet Take 3 tablets (300 mg total) by mouth 1 (one) time each day. 11/10/2024 Active Eliquis 5 mg tablet 01/31/2025 Active baclofen (LIORESAL) 10 mg tablet 02/01/2025 Active DULoxetine (CYMBALTA) [address] capsule 02/15/2025 Activ e fluticasone propionate (FLONASE) 50 mcg/actuation nasal spray 03/01/2025 Active gabapentin (NEURONTIN) 100 mg capsule 01/25/2025 Active gabapentin (NEURONTIN) 300 mg capsule 02/27/2025 Active metFORMIN (GLUCOPHAGE) 1,000 mg tablet 02/27/2025 Act markell primidone (MYSOLINE) 50 mg tablet 02/26/2025 Active traZODone (DESYREL) 50 mg tablet 02/25/2025 Active Active Problems Problem Noted Date Diagnosed Date Severe obesity (BMI 35.0-39. 9) with comorbidity (CMS/HCC V24, CMS/HCC V28) 03/02/2025 Major depressive disorder 03/02/2025 Cervical spondylosis 03/02/2025 Assessment & Plan (03/02/2025 3:56 PM EDT): Patient also had spine imaging when admitted 11/05/2024, he describes neck and thoracic back pain, falls and poor balance for years. He gets pain down both legs, states he was diagnosed with left Hassan's cyst, has appointment March 26 to evaluate this, not sure if it is Ortho. He gets spasticity and jumping in the legs with rest or activity. He states neurology ruled out MS. He denies low back pain. He states he had been getting physical therapy at rehab, has plateaued, [facility] [place] after discharge from [facility] 11/10/2024. Patient had C-spine MRI 11/05/2024 with C5-6, C6-7 DDD, bilateral neuroforaminal narrowing at both levels, no cord compression or signal change in the spinal cord. He had thoracic MRI that showed no acute findings, disc bulging T7-8 without significant stenosis, no cord signal change. Lumbar spine MRI no acute findings, multilevel degenerative changes including central L2-3 disc herniation without significant stenosis. I reviewed MRI images with patient on the computer. Mr. Montoya has overall mild degenerative spine changes, no significant stenosis, but some of his neck pain could be related to the C5-6, C6-7 DDD. We talked about conservative treatment options, I will review imaging with Dr. Vaughan but I do not think she will recommend spine surgery at this time. I will call patient with update after reviewing imaging with Dr. Vaughan. Bilateral leg pain 01/22/2025 Weakness 11/10/2024 Seizure disorder ([facility] V24, [facility] V28) 10/13 Alcohol withdrawal ([facility] V24, [facility] V28) Seizure disorder ([facility] V24, [facility] V28) 10/12 Alcohol abuse 11/02/2024 Brain lesion 11/02/2024 Assessment & Plan (03/04/2025 5:34 PM EDT): Patient is s/p left frontal craniotomy for resection of tumor, meningioma, by Dr. Malone approximately 2004, patient believes surgery was at [facility]. He had recent hospital admission for frequent falls, history of EtOH use, stopped drinking November 11, 2024. He has seizure disorder, no recent seizures per patient. He sees Dr. Brito at [facility] neurology for tremors, short-term memory problems, seizures, is on 3 anticonvulsants and per neurology notes patient describes continued partial seizures 1-2 times a week. Today patient states he does get frontal headaches, has thought it was related to his allergies, weird crunching sensation left side of the head near craniotomy site. He is very bothered by the upper and lower extremity tremors which gets severe, he does not sleep well, happens at rest and with movement, states Dr. Brito told him it was related to his history of alcohol abuse. He is also describing numbness in his feet >hands, sounds like peripheral neuropathy, he states when he is walking he cannot feel the bottom of his feet, they feel puffy and swollen. He states he was prescribed compression stockings but does not usually wear them. Patient had brain MRI 11/05/2024 [facility] that shows 3 extra-axial masses on contrasted imaging (Left frontal extra-axial masses (4 total) with mild restricted diffusion and enhancement 2 mm and 1.1 cm along the interhemispheric falx (series 11 image 41 and 33), just above the resection cavity measuring 1.2 (image 39), and in the peripheral left frontal lobe measuring 1.4 cm (image 49). I looked back at imaging from [facility] including brain MRI with and without contrast 12/26/2024 that showed similar 3 small enhancing extra-axial masses left frontal dura, cystic encephalomalacia and gliosis adjacent to masses, chronic change slightly increased from 2012 study. MRI brain with and without contrast 08/04/2018 compared with prior MRI 2011 showing postop changes left frontal craniotomy, small area of nodular enhancement high left frontal convexity measuring up to 6 mm, compatible with minimal residual/recurrent tumor without significant mass effect, gliosis left superior frontal gyrus and middle frontal gyrus. Older MRI brain 07/10/2006 [facility] showed postop changes left superior frontal craniotomy with encephalomalacia, gliosis left superior frontal lobe, no enhancing lesions at that time. Mr. Rice has history of left frontal craniotomy for resection of meningioma, on recent imaging has 3 small enhancing extra-axial masses in left frontal region. I will review with Dr. Vaughan, see if she recommends any surgical intervention for resection of tumor. I am trying to get copies of original op note and pathology report. Likely his tremors (? and likely peripheral neuropathy-on gabapentin) are unrelated, he was recently started on primidone by neurology for the tremors, is also on baclofen. I will call patient with update after reviewing with Dr. Vaughan. ADDENDUM 03/04/2025: I reviewed patient's brain imaging from [facility] and [facility] with Dr. Vaughan from 2011 to current, she notes the 3 small meningiomas, which have grown over time, she is recommending radiosurgery XRT for these masses, is not recommending reexploration and craniotomy to resect the tumors, there is persistent gliosis (we reviewed prior MRI 2011 at [facility] flair images with current MRI, does not appear to be edema surrounding the masses) and encephalomalacia in the surgical bed, patient has history of seizures, likely would worsen with additional brain surgery. I will refer to [facility] radiation oncology department at [facility]. Falls frequently 11/02/2024 Resolved Problems Problem Noted Date Diagnosed Date Resolved Date Left arm weakness 10/27/2024 10/31/2024 Encounters Date Type Department Care Team Description 05/07/2025 Lab Requisition [facility] [address] [facility] [place] [address] Ailyn Stringer MD Malignant neoplasm of brain, unspecified ([facility] V24, [facility] V28) 04/30/2025 Lab Requisition [facility] [address] [facility] [place] [address] Ailyn Stringer MD Malignant neoplasm of brain, unspecified ([facility] V24, [facility] V28) from Last 3 Months Immunizations Name Administration Dates Next Due Influenza trivalent, 0.5mL, preservative free (Fluarix; FluLaval; Fluzone) ages 6mo and older (Afluria) 3 years and older 01/19/2025 Tdap Tetanus diptheria acell ular pertussis (Boostrix; Adacel) 7yo and older 06/13/2023 Surgical History Surgery Date Site/Laterality Comments BRAIN TUMOR EXCISION 08/14/2004 Left Left frontal craniotomy, resection of meningioma, Dr. Malone Medical History Medical History Date Comments Stroke ([facility] V24, [facility] V28) ETOH abuse Seizures ([facility] V24, [facility] V28) Depression with anxiety Tobacco use Family History Medical History Relation Name Comments Heart failure Mother Relation Name Status Comments Mother Social History Tobacco Use Types Packs/Day Years Used Date Smoking Tobacco: Every Day Cigarettes Smokeless Tobacco: Current Tobacco Cessation:Ready to Q uit: Not Asked; Counseling Given: Not Answered Alcohol Use Standard Drinks/Week Comments Not Currently [...] file Not on file Not on file Obstetrics History Last Filed Vital Signs Vital Sign Reading Time Taken Comments Blood Pressure 126/88 03/12/2025 9:43 AM EDT Pulse 108 03/12/2025 9:43 AM EDT Temperature 36.2 C (97.1 F) 11/10/2024 7:21 AM EST Respiratory Rate 20 11/10/2024 7:21 AM EST Oxygen Saturation 97% 03/12/2025 9:43 AM EDT Inhaled Oxygen Concentration - - Weight 115 kg (254 lb 3.2 oz) 03/12/2025 9:43 AM EDT Height 177.8 cm (5' 10 ) 03/12/2025 9:43 AM EDT Body Mass Index 36.47 03/12/2025 9:43 AM EDT Plan of Treatment Health Maintenance Due Date Last Done Comments Hepatitis A Vaccines (1 of 2 - Risk 2-dose series) 1985 Hepatitis B Vaccines (1 of 3 - 19+ 3-dose series) 1985 Pneumococcal Vaccine: 50+ Years (1 of 2 - PCV) 1985 Zoster Vaccines (1 of 2) 1985 Cholesterol Screening (Lipid Panel) 12/10/2023 Colorectal Cancer Screening: Colonoscopy 12/10/2023 HIV Screening 12/10/2023 Hepatitis C Screening 12/10/2023 Medicare Annual Wellness Visit 12/10/2023 Social Influencers of Health Screening 12/10/2023 Depression Screening 11/11/2024 Influenza Vaccine (#1) 2025 01/19/2025 COVID-19 Vaccine (5 - Moderna risk season) 2025 01/27/2025, 11/21/2021, 04/18/2021, Additional history exists DTaP,Tdap,and Td Vaccines (2 - Td or Tdap) 06/13/2033 06/13/2023 RSV Immunization Adult Patients (1 - 1-dose 75+ series) 2041 HIB Vaccines Aged Out No longer eligi ble based on patient's age to complete this topic HPV Vaccines Aged Out No longer eligi ble based on patient's age to complete this topic IPV Vaccines Aged Out No longer eligi ble based on patient's age to complete this topic MMR Vaccines Aged Out No longer eligi ble based on patient's age to complete this topic Meningococcal ACWY Vaccine Aged Out N o longer eligible based on patient's age to complete this topic Meningococcal B Vaccine Aged Out No l onger eligible based on patient's age to complete this topic RSV Immunization Patients Under 20 months Aged Out No longer eligible based on patient's age to complete this topic Varicella Vaccines Aged Out No longer eligible based on patient's age to complete this topic Procedures Procedure Name Priority Date/Time Associated Diagnosis Comments COMPREHENSIVE METABOLIC PANEL Routine 05/03/2025 5:55 AM EDT Malignant neoplasm of brain, unspecified ([facility] V24, [facility] V28) COMPLETE BLOOD COUNT Routine 05/03/2025 5:55 AM EDT Malignant neoplasm of brain, unspecified ([facility] V24, [facility] V28) from Last 3 Months Results * Complete blood count (05/03/2025 5:55 AM EDT) WBC 6.7 4.8 - 10.8 K/[facility] LAB HEMETOLOGY METHOD 05/03/2025 12:24 PM EDT [facility] RBC 4.90 4.50 - 5.50 M/[facility] LAB HEMETOLOGY METHOD 05/03/2025 12:24 PM [facility] Hemoglobin 14.9 13.5 - 17.5 g/dL LAB HEMETOLOGY METHOD 05/03/2025 12:24 PM [facility] Hematocrit 45.4 42.0 - 54.0 % LAB HEMETOLOGY METHOD 05/03/2025 12:24 PM [facility] MCV 92.8 79.0 - 98.0 FL LAB HEMETOLOGY METHOD 05/03/2025 12:24 PM [facility] MCH 30.5 27.0 - 32.0 pcg LAB HEMETOLOGY METHOD 05/03/2025 12:24 PM [facility] MCHC 32.8 32.0 - 37.0 g/dL LAB HEMETOLOGY METHOD 05/03/2025 12:24 PM [facility] RDW 13.2 11.0 - 15.0 % LAB HEMETOLOGY METHOD 05/03/2025 12:24 PM [facility] Platelets 282 130 - 400 K/mcL LAB HEMETOLOGY METHOD 05/03/2025 12:24 PM [facility] MPV 10.9 7.0 - 11.0 FL LAB HEMETOLOGY METHOD 05/03/2025 12:24 PM [facility] NRBC 0.0 <1.0 % LAB HEMETOLOGY METHOD 05/03/2025 12:24 PM [facility] NRBC Absolute 0.00 <0.10 K/mcL LAB HEMETOLOGY METHOD 05/03/2025 12:24 PM [facility] Blood Venous blood specimen / Unknown Venipuncture / Unknown 05/03/2025 5:55 AM EDT 05/03/2025 11:29 AM EDT us Ailyn Stringer MD LAB BLOOD ORDERABLES Fin al Result [facility] [address] [place] [address], [place] [phone] * (ABNORMAL) Comprehensive metabolic panel (05/03/2025 5:55 AM EDT) Sodium 141 133 - 145 mmol/L LAB CHEMISTRY METHOD 05/03/2025 1:32 PM EDT [facility] Potassium 3.8 3.5 - 5.5 mmol/L LAB CHEMISTRY METHOD 05/03/2025 1:32 PM EDT [facility] Chloride 105 96 - 110 mmol/L LAB CHEMISTRY METHOD 05/03/2025 1:32 PM [facility] CO2 25 21 - 32 mmol/L LAB CHEMISTRY METHOD 05/03/2025 1:32 PM [facility] Anion Gap 11 3 - 11 LAB CHEMISTRY METHOD 05/03/2025 1:32 PM [facility] Glucose 118(H) 70 - 100 mg/dL LAB CHEMISTRY METHOD 05/03/2025 1:32 PM [facility] BUN 14 5 - 25 mg/dL LAB CHEMISTRY METHOD 05/03/2025 1:32 PM [facility] Creatinine 0.74 0.70 - 1.30 mg/dL LAB CHEMISTRY METHOD 05/03/2025 1:[facility] eGFR 104 >=60 mL/min/1. 73m2 LAB CHEMISTRY METHOD 05/03/2025 1:32 PM [facility] Comment:Calculation based on the Chronic Kidney Disease Epidemiology Collaboration (CKD-EPI) equation refit without adjustment for race. BUN/Creatinine Ratio 18.9 LAB CHEMISTRY METHOD 05/03/2025 1:32 PM [facility] Calcium 8.9 8.5 - 10.5 mg/dL LAB CHEMISTRY METHOD 05/03/2025 1:32 PM [facility] AST (SGOT) 23 10 - 42 unit/L LAB CHEMISTRY METHOD 05/03/2025 1:32 PM EDT [facility] ALT (SGPT) 51 10 - 60 unit/L LAB CHEMISTRY METHOD 05/03/2025 1:32 PM EDT [facility] Alkaline Phosphatase 165(H) 42 - 121 unit/L LAB CHEMISTRY METHOD 05/03/2025 1:32 PM EDT [facility] Total Protein 6.7 6.0 - 8.0 g/dL LAB CHEMISTRY METHOD 05/03/2025 1:32 PM EDT [facility] Albumin 3.3 3.2 - 5.0 g/dL LAB CHEMISTRY METHOD 05/03/2025 1:32 PM EDT [facility] Total Bilirubin 0.3 0.0 - 1.4 mg/dL LAB CHEMISTRY METHOD 05/03/2025 1:32 PM EDT [facility] Blood Venous blood specimen / Unknown Venipuncture / Unknown 05/03/2025 5:55 AM EDT 05/03/2025 11:29 AM EDT Ailyn Stringer MD LAB BLOOD ORDERABLES Fin al Result [facility] [address] [place] [address], from Last 3 Months Insurance MEDIC[place] Advance Directives Documents on File Type Date Recorded Patient Quality Assurance Monitor Body Expl anation Advance Directives and Living Will 11/12/2024 9:04 AM Advance Directives and Living Will 11/07/2024 9:04 AM Health Care Proxy * Full Code - Default (Latest Code Status on File) Date Activated Date Inactivated Comments 11/07/2024 12:30 PM 11/10/2024 3:21 PM This is o rder is used when code status has not been discussed with the patient, or code status is otherwise unknown/unconfirmed To update the patient's code status, place a code status order. Do not modify or discontinue any currently active code status orders. * Full Code - Default Date Activated Date Inactivated Comments 10/27/2024 3:47 PM 11/02/2024 4:21 PM This is or chencho is used when code status has not been discussed with the patient, or code status is otherwise unknown/unconfirmed To update the patient's code status, place a code status order. Do not modify or discontinue any currently active code status orders. Care Teams Product Development Coordinator Relationship Specialty Start Date End Date Physician, No Pcp PCP - General 11/05/24
--- OUTSIDE RECORDS SUMMARY | 2025-07-28 22:21 | XMS_ITS | Encounter Summary ---
Author Organization [facility] Address [address] [place] [address] Care Team Providers Care Fire Safety Manager Name Role Phone Physician, No Pcp Primary Care Provider Unavaila ble Encounter Details Date Type Department Care Team (Late st Contact Info) Description 01/30/2025 Lab Requisition [facility] [address] [facility] [place] [address] Ailyn Stringer MD [address] [phone] Malignant neoplasm of brain, unspecified (CMS/HCC V24, [...] Associated Diagnosis Comments COMPLETE BLOOD COUNT Routine 02/01/2025 9:30 AM EDT Malignant neoplasm of brain, unspecified COMPREHENSIVE METABOLIC PANEL Routine 02/01/2025 9:30 AM EDT Malignant neoplasm of brain, unspecified documented in this encounter Results * (ABNORMAL) Comprehensive metabolic panel (02/01/2025 9:30 AM EDT) Sodium 136 133 - 145 mmol/L LAB CHEMISTRY METHOD 02/01/2025 12:29 PM [facility] Potassium 3.4(L) 3.5 - 5.5 mmol/L LAB CHEMISTRY METHOD 02/01/2025 12:29 PM [facility] Chloride 101 96 - 110 mmol/L LAB CHEMISTRY METHOD 02/01/2025 12:29 PM [facility] CO2 25 21 - 32 mmol/L LAB CHEMISTRY METHOD 02/01/2025 12:29 PM [facility] Anion Gap 10 3 - 11 LAB CHEMISTRY METHOD 02/01/2025 12:29 PM [facility] Glucose 355(H) 70 - 100 mg/dL LAB CHEMISTRY METHOD 02/01/2025 12:29 PM [facility] BUN 13 5 - 25 mg/dL LAB CHEMISTRY METHOD 02/01/2025 12:29 PM [facility] Creatinine 0.90 0.70 - 1.30 mg/dL LAB CHEMISTRY METHOD 02/01/2025 12:29 PM T [facility] eGFR 98 >=60 mL/min/1. 73m2 LAB CHEMISTRY METHOD 02/01/2025 12:29 PM [facility] Comment:Calculation based on the Chronic Kidney Disease Epidemiology Collaboration (CKD-EPI) equation refit without adjustment for race. BUN/Creatinine Ratio 14.4 LAB CHEMISTRY METHOD 02/01/2025 12:29 PM T [facility] Calcium 8.9 8.5 - 10.5 mg/dL LAB CHEMISTRY METHOD 02/01/2025 12:29 PM [facility] AST (SGOT) 17 10 - 42 unit/L LAB CHEMISTRY METHOD 02/01/2025 12:29 PM [facility] ALT (SGPT) 46 10 - 60 unit/L LAB CHEMISTRY METHOD 02/01/2025 12:29 PM [facility] Alkaline Phosphatase 154(H) 42 - 121 unit/L LAB CHEMISTRY METHOD 02/01/2025 12:29 PM [facility] Total Protein 7.0 6.0 - 8.0 g/dL LAB CHEMISTRY METHOD 02/01/2025 12:29 PM [facility] Albumin 3.5 3.2 - 5.0 g/dL LAB CHEMISTRY METHOD 02/01/2025 12:29 PM [facility] Total Bilirubin 0.2 0.0 - 1.4 mg/dL LAB CHEMISTRY METHOD 02/01/2025 12:29 PM [facility] Blood Venous blood specimen / Unknown Venipuncture / Unknown 02/01/2025 9:30 AM EDT 02/01/2025 10:53 AM EDT us Ailyn Stringer MD LAB BLOOD ORDERABLES Fin al Result [facility] [address] [place] [address], * (ABNORMAL) Complete blood count (02/01/2025 9:30 AM EDT) [facility] Signature WBC 8.9 4.8 - 10.8 K/mcL LAB HEMETOLOGY METHOD 02/01/2025 11:47 AM EDT [facility] RBC 4.70 4.50 - 5.50 M/mcL LAB HEMETOLOGY METHOD 02/01/2025 11:47 AM EDT [facility] Hemoglobin 15.3 13.5 - 17.5 g/dL LAB HEMETOLOGY METHOD 02/01/2025 11:47 AM EDT [facility] Hematocrit 44.5 42.0 - 54.0 % LAB HEMETOLOGY METHOD 02/01/2025 11:47 AM EDT [facility] MCV 94.1 79.0 - 98.0 FL LAB HEMETOLOGY METHOD 02/01/2025 11:47 AM EDT [facility] MCH 32.3(H) 27.0 - 32.0 pcg LAB HEMETOLOGY [facility] MCHC 34.4 32.0 - 37.0 g/dL LAB HEMETOLOGY METHOD 02/01/2025 11:47 AM EDT [facility] RDW 12.5 11.0 - 15.0 % LAB HEMETOLOGY METHOD 02/01/2025 11:47 AM EDT [facility] Platelets 263 130 - 400 K/mcL LAB HEMETOLOGY METHOD 02/01/2025 11:47 AM EDT [facility] MPV 10.7 7.0 - 11.0 FL LAB HEMETOLOGY METHOD 02/01/2025 11:47 AM EDT [facility] NRBC 0.0 <1.0 % LAB HEMETOLOGY METHOD 02/01/2025 11:47 AM EDT [facility] NRBC Absolute 0.00 <0.10 K/mcL LAB HEMETOLOGY METHOD 02/01/2025 11:47 AM EDT [facility] Blood Venous blood specimen / Unknown Venipuncture / Unknown 02/01/2025 9:30 AM EDT 02/01/2025 10:53 AM EDT us Ailyn Stringer MD LAB BLOOD ORDERABLES Fin al Result [facility] [address] [place] [address], documented in this encounter Visit Diagnoses Diagnosis Malignant neoplasm of brain, unspecified (CMS/HCC V24, CMS/HCC V28) documented in this encounter Care Teams Fire Safety Manager Relationship Specialty Start Date End Date Physician, No Pcp PCP - General 11/05/24 documented as of this encounter
--- OUTSIDE RECORDS SUMMARY | 2025-07-28 22:21 | XMS_ITS | Encounter Summary ---
Author Organization [facility] Address [address] [place] [address] Care Team Providers Care Mems Device Scientist Name Role Phone Physician, No Pcp Primary Care Provider Unavaila ble Encounter Details Date Type Department Care Team (Late st Contact Info) Description 02/20/2025 Lab Requisition [facility] - Main Lab [address] [facility] [place] [address] Ailyn Stringer MD [address] [phone] Malignant neoplasm of brain, unspecified (CMS/HCC V24, [...] Associated Diagnosis Comments COMPLETE BLOOD COUNT Routine 02/22/2025 7:41 AM EDT Malignant neoplasm of brain, unspecified ([facility] V24, [facility] V28) COMPREHENSIVE METABOLIC PANEL Routine 02/22/2025 7:41 AM EDT Malignant neoplasm of brain, unspecified ([facility] V24, [facility] V28) documented in this encounter Results * (ABNORMAL) Comprehensive metabolic panel (02/22/2025 7:41 AM EDT) Sodium 134 133 - 145 mmol/L LAB CHEMISTRY METHOD 02/22/2025 11:44 AM [facility] Potassium 3.8 3.5 - 5.5 mmol/L LAB CHEMISTRY METHOD 02/22/2025 11:44 AM [facility] Chloride 103 96 - 110 mmol/L LAB CHEMISTRY METHOD 02/22/2025 11:44 AM [facility] CO2 21 21 - 32 mmol/L LAB CHEMISTRY METHOD 02/22/2025 11:44 AM [facility] Anion Gap 10 3 - 11 LAB CHEMISTRY METHOD 02/22/2025 11:44 AM [facility] Glucose 273(H) 70 - 100 mg/dL LAB CHEMISTRY METHOD 02/22/2025 11:44 AM [facility] BUN 11 5 - 25 mg/dL LAB CHEMISTRY METHOD 02/22/2025 11:44 AM [facility] Creatinine 0.75 0.70 - 1.30 mg/dL LAB CHEMISTRY METHOD 02/22/2025 11:44 AM [facility] eGFR 104 >=60 mL/min/1. 73m2 LAB CHEMISTRY METHOD 02/22/2025 11:44 AM [facility] Comment:Calculation based on the Chronic Kidney Disease Epidemiology Collaboration (CKD-EPI) equation refit without adjustment for race. BUN/Creatinine Ratio 14.7 LAB CHEMISTRY METHOD 02/22/2025 11:44 AM [facility] Calcium 8.9 8.5 - 10.5 mg/dL LAB CHEMISTRY METHOD 02/22/2025 11:44 AM [facility] AST (SGOT) 13 10 - 42 unit/L LAB CHEMISTRY METHOD 02/22/2025 11:44 AM [facility] ALT (SGPT) 34 10 - 60 unit/L LAB CHEMISTRY METHOD 02/22/2025 11:44 AM [facility] Alkaline Phosphatase 157(H) 42 - 121 unit/L LAB CHEMISTRY METHOD 02/22/2025 11:44 AM [facility] Total Protein 6.9 6.0 - 8.0 g/dL LAB CHEMISTRY METHOD 02/22/2025 11:44 AM [facility] Albumin 3.4 3.2 - 5.0 g/dL LAB CHEMISTRY METHOD 02/22/2025 11:44 AM [facility] Total Bilirubin 0.3 0.0 - 1.4 mg/dL LAB CHEMISTRY METHOD 02/22/2025 11:44 AM [facility] Blood Venous blood specimen / Unknown Venipuncture / Unknown 02/22/2025 7:41 AM EDT 02/22/2025 10:48 AM EDT Ailyn Stringer MD LAB BLOOD ORDERABLES Fin al Result [facility] [address] [place] [address], * (ABNORMAL) Complete blood count (02/22/2025 7:41 AM EDT) WBC 7.4 4.8 - 10.8 K/mcL LAB HEMETOLOGY METHOD 02/22/2025 11:17 AM EDT [facility] RBC 4.70 4.50 - 5.50 M/mcL LAB HEMETOLOGY METHOD 02/22/2025 11:17 AM EDT [facility] Hemoglobin 15.0 13.5 - 17.5 g/dL LAB HEMETOLOGY METHOD 02/22/2025 11:17 AM T [facility] Hematocrit 43.7 42.0 - 54.0 % LAB HEMETOLOGY METHOD 02/22/2025 11:17 AM EDT [facility] MCV 93.8 79.0 - 98.0 FL LAB HEMETOLOGY METHOD 02/22/2025 11:17 AM EDT [facility] MCH 32.2(H) 27.0 - 32.0 pcg LAB [facility] MCHC 34.3 32.0 - 37.0 g/dL LAB HEMETOLOGY METHOD 02/22/2025 11:17 AM EDT [facility] RDW 12.4 11.0 - 15.0 % LAB HEMETOLOGY METHOD 02/22/2025 11:17 AM EDT [facility] Platelets 279 130 - 400 K/mcL LAB HEMETOLOGY METHOD 02/22/2025 11:17 AM [facility] MPV 11.6(H) 7.0 - 11.0 FL LAB HEMETOLOGY METHOD 02/22/2025 11:17 AM EDT [facility] NRBC 0.0 <1.0 % LAB HEMETOLOGY METHOD 02/22/2025 11:17 AM EDT [facility] NRBC Absolute 0.00 <0.10 K/mcL LAB HEMETOLOGY METHOD 02/22/2025 11:17 AM EDT [facility] Blood Venous blood specimen / Unknown Venipuncture / Unknown 02/22/2025 7:41 AM EDT 02/22/2025 10:48 AM EDT us Ailyn Stringer MD LAB BLOOD ORDERABLES Fin al Result [facility] [address] [place] [address], documented in this encounter Visit Diagnoses Diagnosis Malignant neoplasm of brain, unspecified (CMS/HCC V24, CMS/HCC V28) documented in this encounter Care Teams Mems Device Scientist Relationship Specialty Start Date End Date Physician, No Pcp PCP - General 11/05/24 documented as of this encounter
--- OUTSIDE RECORDS SUMMARY | 2025-07-28 22:21 | XMS_ITS | Encounter Summary ---
Author Organization [facility] Address [address] [place] [address] Care Team Providers Care .Net Programmer Name Role Phone Physician, No Pcp Primary Care Provider Unavaila ble Encounter Details Date Type Department Care Team (Late st Contact Info) Description 11/20/2024 Lab Requisition [facility] - Main Lab 299 [facility] [place] [address] Ailyn Stringer MD [address] [phone] Malignant neoplasm of brain, unspecified (CMS/HCC V24, [...] Associated Diagnosis Comments COMPLETE BLOOD COUNT Routine 11/23/2024 7:06 AM EST Malignant neoplasm of brain, unspecified (CMS/HCC) COMPREHENSIVE METABOLIC PANEL Routine 11/23/2024 7:06 AM EST Malignant neoplasm of brain, unspecified (CMS/HCC) documented in this encounter Results * (ABNORMAL) Comprehensive metabolic panel (11/23/2024 7:06 AM EST) Sodium 139 133 - 145 mmol/L LAB CHEMISTRY METHOD 11/23/2024 10:35 AM [facility] Potassium 3.6 3.5 - 5.5 mmol/L LAB CHEMISTRY METHOD 11/23/2024 10:35 AM [facility] Chloride 108 96 - 110 mmol/L LAB CHEMISTRY METHOD 11/23/2024 10:35 AM [facility] CO2 24 21 - 32 mmol/L LAB CHEMISTRY METHOD 11/23/2024 10:35 AM [facility] Anion Gap 7 3 - 11 LAB CHEMISTRY METHOD 11/23/2024 10:35 AM [facility] Glucose 170(H) 70 - 100 mg/dL LAB CHEMISTRY METHOD 11/23/2024 10:35 AM [facility] BUN 14 5 - 25 mg/dL LAB CHEMISTRY METHOD 11/23/2024 10:35 AM [facility] Creatinine 0.71 0.70 - 1.30 mg/dL LAB CHEMISTRY METHOD 11/23/2024 10:35 AM [facility] eGFR 106 >=60 mL/min/1. 73m2 LAB CHEMISTRY METHOD 11/23/2024 10:35 AM [facility] Comment:Calculation based on the Chronic Kidney Disease Epidemiology Collaboration (CKD-EPI) equation refit without adjustment for race. BUN/Creatinine Ratio 19.7 LAB CHEMISTRY METHOD 11/23/2024 10:35 AM [facility] Calcium 8.5 8.5 - 10.5 mg/dL LAB CHEMISTRY METHOD 11/23/2024 10:35 AM [facility] AST (SGOT) 19 10 - 42 unit/L LAB CHEMISTRY METHOD 11/23/2024 10:35 AM [facility] ALT (SGPT) 72(H) 10 - 60 unit/L LAB CHEMISTRY METHOD 11/23/2024 10:35 AM [facility] Alkaline Phosphatase 100 42 - 121 unit/L LAB CHEMISTRY METHOD 11/23/2024 10:35 AM [facility] Total Protein 6.0 6.0 - 8.0 g/dL LAB CHEMISTRY METHOD 11/23/2024 10:35 AM [facility] Albumin 3.3 3.2 - 5.0 g/dL LAB CHEMISTRY METHOD 11/23/2024 10:35 AM [facility] Total Bilirubin 0.2 0.0 - 1.4 mg/dL LAB CHEMISTRY METHOD 11/23/2024 10:35 AM [facility] Blood Venous blood specimen / Unknown Venipuncture / Unknown 11/23/2024 7:06 AM EST 11/23/2024 9:35 AM EST us Ailyn Stringer MD LAB BLOOD ORDERABLES Fin al Result [facility] [address] [place] [address], * (ABNORMAL) Complete blood count (11/23/2024 7:06 AM EST) [facility] WBC 6.0 4.8 - 10.8 K/mcL LAB HEMETOLOGY METHOD 11/23/2024 9:58 AM [facility] RBC 4.10(L) 4.50 - 5.50 M/mcL LAB HEMETOLOGY METHOD 11/23/2024 9:58 AM [facility] Hemoglobin 13.3(L) 13.5 - 17.5 g/dL LAB HEMETOLOGY METHOD 11/23/2024 9:58 AM [facility] Hematocrit 40.5(L) 42.0 - 54.0 % LAB HEMETOLOGY METHOD 11/23/2024 9:58 AM [facility] MCV 99.0(H) 79.0 - 98.0 FL LAB HEMETOLOGY METHOD 11/23/2024 9:58 AM [facility] MCH 32.5(H) 27.0 - 32.0 pcg LAB HEMETOLOGY METHOD 11/23/2024 9:58 AM [facility] MCHC 32.8 32.0 - 37.0 g/dL LAB HEMETOLOGY METHOD 11/23/2024 9:58 AM [facility] RDW 13.0 11.0 - 15.0 % LAB HEMETOLOGY METHOD 11/23/2024 9:58 AM [facility] Platelets 228 130 - 400 K/mcL LAB HEMETOLOGY METHOD 11/23/2024 9:58 AM [facility] MPV 10.9 7.0 - 11.0 FL LAB HEMETOLOGY METHOD 11/23/2024 9:58 AM [facility] NRBC 0.0 <1.0 % LAB HEMETOLOGY METHOD 11/23/2024 9:[address] [facility] NRBC Absolute 0.00 <0.10 K/[facility] LAB HEMETOLOGY METHOD 11/23/2024 9:[address] [facility] Blood Venous blood specimen / Unknown Venipuncture / Unknown 11/23/2024 7:06 AM EST 11/23/2024 9:35 AM EST us Ailyn Stringer MD LAB BLOOD ORDERABLES Fin al Result [facility] [address] [place] [address], documented in this encounter Visit Diagnoses Diagnosis Malignant neoplasm of brain, unspecified (CMS/HCC V24, CMS/HCC V28) documented in this encounter Care Teams .Net Programmer Relationship Specialty Start Date End Date Physician, No Pcp PCP - General 11/05/24 documented as of this encounter
--- OUTSIDE RECORDS SUMMARY | 2025-07-28 22:22 | XMS_ITS | Encounter Summary ---
Author Organization [facility] Address [address] [place] [address] Care Team Providers Care Rehabilitation Aide Name Role Phone Physician, No Pcp Primary Care Provider Unavaila ble Encounter Details Date Type Department Care Team (Late st Contact Info) Description 01/06/2025 Lab Requisition [facility] - Main Lab [address] [facility] [place] [address] Ailyn Stringer MD [address] [phone] Encounter for therapeutic drug level monitoring Social [...] Associated Diagnosis Comments PHENYTOIN LEVEL, TOTAL Routine 01/07/2025 7:14 AM EST Encounter for therapeutic drug level monitoring documented in this encounter Results * (ABNORMAL) Phenytoin level total (01/07/2025 7:14 AM EST) Phenytoin Level 8.8(L) 10.0 - 20.0 mcg/mL LAB CHEMISTRY METHOD 01/07/2025 11:10 AM EST [facility] Blood Venous blood specimen / Unknown Venipuncture / Unknown 01/07/2025 7:14 AM EST 01/07/2025 9:34 AM EST us Ailyn Stringer MD LAB BLOOD ORDERABLES Fin al Result [facility] [address] [place] [address], documented in this encounter Visit Diagnoses Diagnosis Encounter for therapeutic drug level monitoring documented in this encounter Care Teams Rehabilitation Aide Relationship Specialty Start Date End Date Physician, No Pcp PCP - General 11/05/24 documented as of this encounter
--- OUTSIDE RECORDS SUMMARY | 2025-07-28 22:22 | XMS_ITS | Encounter Summary ---
Author Organization [facility] Address [address] [place] [address] Care Team Providers Care Due Diligence Coordinator Name Role Phone Physician, No Pcp Primary Care Provider Unavaila ble Encounter Details Date Type Department Care Team (Late st Contact Info) Description 12/20/2024 Lab Requisition [facility] - Main Lab [address] [facility] [place] [address] Ailyn Stringer MD [address] [phone] Malignant neoplasm of brain, unspecified (CMS/HCC V24, [...] Associated Diagnosis Comments COMPLETE BLOOD COUNT Routine 12/21/2024 10:23 AM EST Malignant neoplasm of brain, unspecified (CMS/HCC) COMPREHENSIVE METABOLIC PANEL Routine 12/21/2024 10:23 AM EST Malignant neoplasm of brain, unspecified (CMS/HCC) documented in this encounter Results * Comprehensive metabolic panel (12/21/2024 10:23 AM EST) Sodium 139 133 - 145 mmol/L LAB CHEMISTRY METHOD 12/21/2024 3:10 PM [facility] Potassium 4.1 3.5 - 5.5 mmol/L LAB CHEMISTRY METHOD 12/21/2024 3:10 PM [facility] Chloride 109 96 - 110 mmol/L LAB CHEMISTRY METHOD 12/21/2024 3:10 PM [facility] CO2 24 21 - 32 mmol/L LAB CHEMISTRY METHOD 12/21/2024 3:10 PM [facility] Anion Gap 6 3 - 11 LAB CHEMISTRY METHOD 12/21/2024 3:10 PM [facility] Glucose 90 70 - 100 mg/dL LAB CHEMISTRY METHOD 12/21/2024 3:10 PM [facility] BUN 18 5 - 25 mg/dL LAB CHEMISTRY METHOD 12/21/2024 3:10 PM [facility] Creatinine 0.70 0.70 - 1.30 mg/dL LAB CHEMISTRY METHOD 12/21/2024 3:10 PM [facility] eGFR 107 >=60 mL/min/1. 73m2 LAB CHEMISTRY METHOD 12/21/2024 3:10 PM [facility] Comment:Calculation based on the Chronic Kidney Disease Epidemiology Collaboration (CKD-EPI) equation refit without adjustment for race. BUN/Creatinine Ratio 25.7 LAB CHEMISTRY METHOD 12/21/2024 3:10 PM [facility] Calcium 8.8 8.5 - 10.5 mg/dL LAB CHEMISTRY METHOD 12/21/2024 3:10 PM [facility] AST (SGOT) 20 10 - 42 unit/L LAB CHEMISTRY METHOD 12/21/2024 3:10 PM [facility] ALT (SGPT) 49 10 - 60 unit/L LAB CHEMISTRY METHOD 12/21/2024 3:10 PM [facility] Alkaline Phosphatase 109 42 - 121 unit/L LAB CHEMISTRY METHOD 12/21/2024 3:10 PM [facility] Total Protein 6.7 6.0 - 8.0 g/dL LAB CHEMISTRY METHOD 12/21/2024 3:10 PM [facility] Albumin 3.6 3.2 - 5.0 g/dL LAB CHEMISTRY METHOD 12/21/2024 3:10 PM [facility] Total Bilirubin 0.1 0.0 - 1.4 mg/dL LAB CHEMISTRY METHOD 12/21/2024 3:10 PM [facility] Blood Venous blood specimen / Unknown Venipuncture / Unknown 12/21/2024 10:23 AM EST 12/21/2024 11:20 AM EST us Ailyn Stringer MD LAB BLOOD ORDERABLES Fin al Result [facility] [address] [place] [address], * (ABNORMAL) Complete blood count (12/21/2024 10:23 AM EST) [facility] WBC 6.6 4.8 - 10.8 K/mcL LAB HEMETOLOGY METHOD 12/21/2024 1:21 PM [facility] RBC 4.40(L) 4.50 - 5.50 M/mcL LAB HEMETOLOGY METHOD 12/21/2024 1:21 PM [facility] Hemoglobin 14.3 13.5 - 17.5 g/dL LAB HEMETOLOGY METHOD 12/21/2024 1:21 PM [facility] Hematocrit 42.8 42.0 - 54.0 % LAB HEMETOLOGY METHOD 12/21/2024 1:21 PM [facility] MCV 97.3 79.0 - 98.0 FL LAB HEMETOLOGY METHOD 12/21/2024 1:21 PM [facility] MCH 32.5(H) 27.0 - 32.0 pcg LAB HEMETOLOGY METHOD 12/21/2024 1:21 PM [facility] MCHC 33.4 32.0 - 37.0 g/dL LAB HEMETOLOGY METHOD 12/21/2024 1:21 PM [facility] RDW 12.6 11.0 - 15.0 % LAB HEMETOLOGY METHOD 12/21/2024 1:21 PM [facility] Platelets 278 130 - 400 K/mcL LAB HEMETOLOGY METHOD 12/21/2024 1:21 PM [facility] MPV 10.6 7.0 - 11.0 FL LAB HEMETOLOGY METHOD 12/21/2024 1:21 PM [facility] NRBC 0.0 <1.0 % LAB HEMETOLOGY METHOD 12/21/2024 1:21 PM [facility] NRBC Absolute 0.00 <0.10 K/mcL LAB HEMETOLOGY METHOD 12/21/2024 1:21 PM EST [facility] Blood Venous blood specimen / Unknown Venipuncture / Unknown 12/21/2024 10:23 AM EST 12/21/2024 11:20 AM EST us Ailyn Stringer MD LAB BLOOD ORDERABLES Fin al Result [facility] [address] [place] [address], documented in this encounter Visit Diagnoses Diagnosis Malignant neoplasm of brain, unspecified (CMS/HCC V24, CMS/HCC V28) documented in this encounter Care Teams Due Diligence Coordinator Relationship Specialty Start Date End Date Physician, No Pcp PCP - General 11/05/24 documented as of this encounter
--- OUTSIDE RECORDS SUMMARY | 2025-07-28 22:22 | XMS_ITS | Encounter Summary ---
Author Organization [facility] Address [address] [place] [address] Care Team Providers Care Advertising Coordinator Name Role Phone Physician, No Pcp Primary Care Provider Unavaila ble Encounter Details Date Type Department Care Team (Late st Contact Info) Description 12/11/2024 Lab Requisition [facility] - Main Lab [address] [facility] [place] [address] Ailyn Stringer MD [address] [phone] Malignant neoplasm of brain, unspecified (CMS/HCC V24, CMS/HCC V28) Social History Tobacco Use Types Packs/Day Years Used Date Smoking Tobacco: Every Day Cigarettes Interpersonal Safety Answer Date Record ed Physical [...] Associated Diagnosis Comments COMPLETE BLOOD COUNT Routine 12/14/2024 7:40 AM EST Malignant neoplasm of brain, unspecified (CMS/HCC) COMPREHENSIVE METABOLIC PANEL Routine 12/14/2024 7:40 AM EST Malignant neoplasm of brain, unspecified (CMS/HCC) documented in this encounter Results * (ABNORMAL) Comprehensive metabolic panel (12/14/2024 7:40 AM EST) Sodium 140 133 - 145 mmol/L LAB CHEMISTRY METHOD 12/14/2024 1:35 PM [facility] Potassium 3.6 3.5 - 5.5 mmol/L LAB CHEMISTRY METHOD 12/14/2024 1:35 PM [facility] Chloride 106 96 - 110 mmol/L LAB CHEMISTRY METHOD 12/14/2024 1:35 PM [facility] CO2 26 21 - 32 mmol/L LAB CHEMISTRY METHOD 12/14/2024 1:35 PM [facility] Anion Gap 8 3 - 11 LAB CHEMISTRY METHOD 12/14/2024 1:35 PM [facility] Glucose 141(H) 70 - 100 mg/dL LAB CHEMISTRY METHOD 12/14/2024 1:35 PM [facility] BUN 13 5 - 25 mg/dL LAB CHEMISTRY METHOD 12/14/2024 1:35 PM [facility] Creatinine 0.73 0.70 - 1.30 mg/dL LAB CHEMISTRY METHOD 12/14/2024 1:35 PM [facility] eGFR 105 >=60 mL/min/1. 73m2 LAB CHEMISTRY METHOD 12/14/2024 1:35 PM [facility] Comment:Calculation based on the Chronic Kidney Disease Epidemiology Collaboration (CKD-EPI) equation refit without adjustment for race. BUN/Creatinine Ratio 17.8 LAB CHEMISTRY METHOD 12/14/2024 1:35 PM [facility] Calcium 9.3 8.5 - 10.5 mg/dL LAB CHEMISTRY METHOD 12/14/2024 1:35 PM [facility] AST (SGOT) 16 10 - 42 unit/L LAB CHEMISTRY METHOD 12/14/2024 1:35 PM [facility] ALT (SGPT) 57 10 - 60 unit/L LAB CHEMISTRY METHOD 12/14/2024 1:35 PM [facility] Alkaline Phosphatase 104 42 - 121 unit/L LAB CHEMISTRY METHOD 12/14/2024 1:35 PM [facility] Total Protein 6.8 6.0 - 8.0 g/dL LAB CHEMISTRY METHOD 12/14/2024 1:35 PM [facility] Albumin 3.7 3.2 - 5.0 g/dL LAB CHEMISTRY METHOD 12/14/2024 1:35 PM [facility] Total Bilirubin 0.3 0.0 - 1.4 mg/dL LAB CHEMISTRY METHOD 12/14/2024 1:35 PM [facility] Blood Venous blood specimen / Unknown 12/14/2024 7:40 AM EST 12/14/2024 1:27 PM EST us Ailyn Stringer MD LAB BLOOD ORDERABLES Fin al Result [facility] [address] [place] [address], [place] [phone] * (ABNORMAL) Complete blood count (12/14/2024 7:40 AM EST) [facility] WBC 6.8 4.8 - 10.8 K/mcL LAB HEMETOLOGY METHOD 12/14/2024 12:44 PM [facility] RBC 4.60 4.50 - 5.50 M/mcL LAB HEMETOLOGY METHOD 12/14/2024 12:44 PM [facility] Hemoglobin 14.8 13.5 - 17.5 g/dL LAB HEMETOLOGY METHOD 12/14/2024 12:44 PM [facility] Hematocrit 45.5 42.0 - 54.0 % LAB HEMETOLOGY METHOD 12/14/2024 12:44 PM [facility] MCV 98.3(H) 79.0 - 98.0 FL LAB HEMETOLOGY METHOD 12/14/2024 12:44 PM [facility] MCH 32.0 27.0 - 32.0 pcg LAB HEMETOLOGY METHOD 12/14/2024 12:44 PM [facility] MCHC 32.5 32.0 - 37.0 g/dL LAB HEMETOLOGY METHOD 12/14/2024 12:44 PM [facility] RDW 12.7 11.0 - 15.0 % LAB HEMETOLOGY METHOD 12/14/2024 12:44 PM [facility] Platelets 291 130 - 400 K/mcL LAB HEMETOLOGY METHOD 12/14/2024 12:44 PM [facility] MPV 10.4 7.0 - 11.0 FL LAB HEMETOLOGY METHOD 12/14/2024 12:44 PM [facility] NRBC 0.0 <1.0 % LAB HEMETOLOGY METHOD 12/14/2024 12:44 PM [facility] NRBC Absolute 0.00 <0.10 K/mcL LAB HEMETOLOGY METHOD 12/14/2024 12:44 PM EST [facility] Blood Venous blood specimen / Unknown 12/14/2024 7:40 AM EST 12/14/2024 11:19 AM EST us Ailyn Stringer MD LAB BLOOD ORDERABLES Fin al Result [facility] [address] [place] [address], documented in this encounter Visit Diagnoses Diagnosis Malignant neoplasm of brain, unspecified (CMS/HCC V24, CMS/HCC V28) documented in this encounter Care Teams Advertising Coordinator Relationship Specialty Start Date End Date Physician, No Pcp PCP - General 11/05/24 documented as of this encounter
--- OUTSIDE RECORDS SUMMARY | 2025-07-28 22:22 | XMS_ITS | Encounter Summary ---
Author Organization [facility] Address [address] [place] [address] Care Team Providers Care Supervisor Garage Name Role Phone Physician, No Pcp Primary Care Provider Unavaila ble Encounter Details Date Type Department Care Team (Late st Contact Info) Description 01/01/2025 Lab Requisition [facility] - Main Lab [address] [facility] [place] [address] Social History Tobacco Use Types Packs/Day Years [...] documented as of this encounter Visit Diagnoses Not on filedocumented in this encounter Care Teams Supervisor Garage Relationship Specialty Start Date End Date Physician, No Pcp PCP - General 11/05/24 documented as of this encounter
--- OUTSIDE RECORDS SUMMARY | 2025-07-28 22:22 | XMS_ITS | Encounter Summary ---
Author Organization [facility] Address [address] [place] [address] Care Team Providers Care Napping Machine Operator Name Role Phone Physician, No Pcp Primary Care Provider Unavaila ble Encounter Details Date Type Department Care Team (Late st Contact Info) Description 01/01/2025 Lab Requisition [facility] - Main Lab 299 [facility] [place] [address] Ailyn Stringer MD [address] [phone] Encounter for therapeutic drug level monitoring Social [...] of Assessment Author Yes 11/06/2024 6:22 AM Jigan Chávez RN * Do you have serious [...] Associated Diagnosis Comments PHENYTOIN LEVEL, TOTAL Routine 01/01/2025 6:06 AM EST Encounter for therapeutic drug level monitoring documented in this encounter Results * Phenytoin level total (01/01/2025 6:06 AM EST) Phenytoin Level 20.0 10.0 - 20.0 mcg/mL LAB CHEMISTRY METHOD 01/01/2025 12:30 PM EST [facility] Blood Venous blood specimen / Unknown 01/01/2025 6:06 AM EST 01/01/2025 12:15 PM EST us Ailyn Stringer MD LAB BLOOD ORDERABLES Fin al Result [facility] [address] [place] [address], documented in this encounter Visit Diagnoses Diagnosis Encounter for therapeutic drug level monitoring documented in this encounter Care Teams Napping Machine Operator Relationship Specialty Start Date End Date Physician, No Pcp PCP - General 11/05/24 documented as of this encounter
--- OUTSIDE RECORDS SUMMARY | 2025-07-28 22:22 | XMS_ITS | Encounter Summary ---
Author Organization [facility] Address [address] [place] [address] Care Team Providers Care Fundraiser Name Role Phone Physician, No Pcp Primary Care Provider Unavaila ble Encounter Details Date Type Department Care Team (Late st Contact Info) Description 01/09/[address] [facility] - Main Lab 299 [facility] [place] [address] Ailyn Stringer MD [address] [phone] Encounter for therapeutic drug level monitoring Social [...] Associated Diagnosis Comments PHENYTOIN LEVEL, TOTAL Routine 01/10/2025 8:15 AM EST Encounter for therapeutic drug level monitoring documented in this encounter Results * Phenytoin level total (01/10/2025 8:15 AM EST) Phenytoin Level 12.0 10.0 - 20.0 mcg/mL LAB CHEMISTRY METHOD 01/10/2025 10:10 AM EST [facility] Blood Venous blood specimen / Unknown Venipuncture / Unknown 01/10/2025 8:15 AM EST 01/10/2025 9:11 AM EST Ailyn Stringer MD LAB BLOOD ORDERABLES Fin al Result [facility] [address] [place] [address], documented in this encounter Visit Diagnoses Diagnosis Encounter for therapeutic drug level monitoring documented in this encounter Care Teams Fundraiser Relationship Specialty Start Date End Date Physician, No Pcp PCP - General 11/05/24 documented as of this encounter
--- OUTSIDE RECORDS SUMMARY | 2025-07-28 22:22 | XMS_ITS | Encounter Summary ---
Author Organization [facility] Address [address] [place] [address] Care Team Providers Care Job Site Superintendent Name Role Phone Physician, No Pcp Primary Care Provider Unavaila ble Encounter Details Date Type Department Care Team (Late st Contact Info) Description 12/31/[address] [facility] - Main Lab 299 [facility] [place] [address] Ailyn Stringer MD [address] [phone] Encounter for therapeutic drug level monitoring Social [...] monitoring documented in this encounter Care Teams Job Site Superintendent Relationship Specialty Start Date End Date Physician, No Pcp PCP - General 11/05/24 documented as of this encounter
--- OUTSIDE RECORDS SUMMARY | 2025-07-28 22:22 | XMS_ITS | Encounter Summary ---
Author Organization [facility] Address [address] [place] [address] Care Team Providers Care Boiler Out Name Role Phone Physician, No Pcp Primary Care Provider Unavaila ble Encounter Details Date Type Department Care Team (Late st Contact Info) Description 12/29/2024 Lab Requisition [facility] - Main Lab 299 [facility] [place] [address] Ailyn Stringer MD [address] [phone] Other shelter (current) drug therapy Social History Tobacco Use [...] Procedure Name Priority Date/Time Associated Diagnosis Comments RED - PLAIN Routine 12/29/2024 5:47 AM EST Other shelter (current) drug therapy PHENYTOIN LEVEL, TOTAL Routine 12/29/2024 5:47 AM EST Other shelter (current) drug therapy documented in this encounter Results * Red tube (12/29/2024 5:47 AM EST) Extra Tube Hold for add-ons. 12/29/2024 9:01 AM EST [facility] Comment:Auto resulted. Blood Venous blood specimen / Unknown Venipuncture / Unknown 12/29/2024 5:47 AM EST 12/29/2024 7:36 AM EST us Ailyn Stringer MD LAB BLOOD ORDERABLES Fin al Result [facility] [address] [place] [address], * (ABNORMAL) Phenytoin level total (12/29/2024 5:47 AM EST) Phenytoin Level 27.6(HH) 10.0 - 20.0 mcg/mL LAB CHEMISTRY METHOD 12/29/2024 8:49 AM EST [facility] Blood Venous blood specimen / Unknown Venipuncture / Unknown 12/29/2024 5:47 AM EST 12/29/2024 7:36 AM EST us Ailyn Stringer MD LAB BLOOD ORDERABLES Fin al Result [facility] [address] [place] [address], documented in this encounter Visit Diagnoses Diagnosis Other shelter (current) drug therapy documented in this encounter Care Teams Boiler Out Relationship Specialty Start Date End Date Physician, No Pcp PCP - General 11/05/24 documented as of this encounter
--- OUTSIDE RECORDS SUMMARY | 2025-07-28 22:22 | XMS_ITS | Encounter Summary ---
Author Organization [facility] Address [address] [place] [address] Care Team Providers Care Qa Lead Name Role Phone Physician, No Pcp Primary Care Provider Unavaila ble Encounter Details Date Type Department Care Team (Late st Contact Info) Description 01/07/2025 Lab Requisition [facility] - Main Lab 299 [facility] [place] [address] Ailyn Stringer MD [address] [phone] Encounter for therapeutic drug level monitoring Social [...] Associated Diagnosis Comments PHENYTOIN LEVEL, TOTAL Routine 01/08/2025 5:42 AM EST Encounter for therapeutic drug level monitoring documented in this encounter Results * (ABNORMAL) Phenytoin level total (01/08/2025 5:42 AM EST) Phenytoin Level 9.5(L) 10.0 - 20.0 mcg/mL LAB CHEMISTRY METHOD 01/08/2025 11:56 AM EST [facility] Blood Venous blood specimen / Unknown Venipuncture / Unknown 01/08/2025 5:42 AM EST 01/08/2025 10:11 AM EST us Ailyn Stringer MD LAB BLOOD ORDERABLES Fin al Result [facility] [address] [place] [address], documented in this encounter Visit Diagnoses Diagnosis Encounter for therapeutic drug level monitoring documented in this encounter Care Teams Qa Lead Relationship Specialty Start Date End Date Physician, No Pcp PCP - General 11/05/24 documented as of this encounter
--- OUTSIDE RECORDS SUMMARY | 2025-07-28 22:22 | XMS_ITS | Encounter Summary ---
Author Organization [facility] Address [address] [place] [address] Care Team Providers Care Aligning Inspector Name Role Phone Physician, No Pcp Primary Care Provider Unavaila ble Encounter Details Date Type Department Care Team (Late st Contact Info) Description 01/05/2025 Lab Requisition [facility] - Main Lab 299 [facility] [place] [address] Ailyn Stringer MD [address] [phone] Encounter for therapeutic drug level monitoring Social [...] Associated Diagnosis Comments PHENYTOIN LEVEL, TOTAL Routine 01/05/2025 5:20 AM EST Encounter for therapeutic drug level monitoring documented in this encounter Results * (ABNORMAL) Phenytoin level total (01/05/2025 5:20 AM EST) Phenytoin Level 5.0(L) 10.0 - 20.0 mcg/mL LAB CHEMISTRY METHOD 01/05/2025 11:39 AM EST [facility] Blood Venous blood specimen / Unknown Venipuncture / Unknown 01/05/2025 5:20 AM EST 01/05/2025 8:26 AM EST us Ailyn Stringer MD LAB BLOOD ORDERABLES Fin al Result [facility] [address] [place] [address], documented in this encounter Visit Diagnoses Diagnosis Encounter for therapeutic drug level monitoring documented in this encounter Care Teams Aligning Inspector Relationship Specialty Start Date End Date Physician, No Pcp PCP - General 11/05/24 documented as of this encounter
--- OUTSIDE RECORDS SUMMARY | 2025-07-28 22:22 | XMS_ITS | Encounter Summary ---
Author Organization [facility] Address [address] [place] [address] Care Team Providers Care Operations Assistant Name Role Phone Physician, No Pcp Primary Care Provider Unavaila ble Encounter Details Date Type Department Care Team (Late st Contact Info) Description 12/30/2024 Lab Requisition [facility] - Main Lab 299 [facility] [place] [address] Ailyn Stringer MD [address] [phone] Encounter for therapeutic drug level monitoring Social [...] Associated Diagnosis Comments PHENYTOIN LEVEL, TOTAL Routine 12/31/2024 5:09 AM EST Encounter for therapeutic drug level monitoring documented in this encounter Results * (ABNORMAL) Phenytoin level total (12/31/2024 5:09 AM EST) Phenytoin Level 22.5(H) 10.0 - 20.0 mcg/mL LAB CHEMISTRY METHOD 12/31/2024 11:37 AM EST [facility] Blood Venous blood specimen / Unknown Venipuncture / Unknown 12/31/2024 5:09 AM EST 12/31/2024 10:43 AM EST us Ailyn Stringer MD LAB BLOOD ORDERABLES Fin al Result [facility] [address] [place] [address], documented in this encounter Visit Diagnoses Diagnosis Encounter for therapeutic drug level monitoring documented in this encounter Care Teams Operations Assistant Relationship Specialty Start Date End Date Physician, No Pcp PCP - General 11/05/24 documented as of this encounter
--- OUTSIDE RECORDS SUMMARY | 2025-07-28 22:22 | XMS_ITS | Encounter Summary ---
Author Organization [facility] Address [address] [place] [address] Care Team Providers Care Transformation Specialist Name Role Phone Physician, No Pcp Primary Care Provider Unavaila ble Encounter Details Date Type Department Care Team (Late st Contact Info) Description 12/29/[address] [facility] - Main Lab 299 [facility] [place] [address] Ailyn Stringer MD [address] [phone] Encounter for therapeutic drug level monitoring Social [...] Associated Diagnosis Comments PHENYTOIN LEVEL, TOTAL Routine 12/30/2024 5:42 AM EST Encounter for therapeutic drug level monitoring documented in this encounter Results * (ABNORMAL) Phenytoin level total (12/30/2024 5:42 AM EST) Phenytoin Level 24.8(H) 10.0 - 20.0 mcg/mL LAB CHEMISTRY METHOD 12/30/2024 12:48 PM EST [facility] Blood Venous blood specimen / Unknown Venipuncture / Unknown 12/30/2024 5:42 AM EST 12/30/2024 11:24 AM EST us Ailyn Stringer MD LAB BLOOD ORDERABLES Fin al Result [facility] [address] [place] [address], documented in this encounter Visit Diagnoses Diagnosis Encounter for therapeutic drug level monitoring documented in this encounter Care Teams Transformation Specialist Relationship Specialty Start Date End Date Physician, No Pcp PCP - General 11/05/24 documented as of this encounter
--- OUTSIDE RECORDS SUMMARY | 2025-07-28 22:22 | XMS_ITS | Encounter Summary ---
Author Organization [facility] Address [address] [place] [address] Care Team Providers Care Caster Helper Name Role Phone Physician, No Pcp Primary Care Provider Unavaila ble Encounter Details Date Type Department Care Team (Late st Contact Info) Description 12/05/2024 Lab Requisition [facility] - Main Lab 299 [facility] [place] [address] Ailyn Stringer MD [address] [phone] Malignant neoplasm of brain, unspecified (CMS/HCC V24, [...] Associated Diagnosis Comments COMPLETE BLOOD COUNT Routine 12/07/2024 9:42 AM EST Malignant neoplasm of brain, unspecified (CMS/HCC) COMPREHENSIVE METABOLIC PANEL Routine 12/07/2024 9:42 AM EST Malignant neoplasm of brain, unspecified (CMS/HCC) documented in this encounter Results * (ABNORMAL) Comprehensive metabolic panel (12/07/2024 9:42 AM EST) Sodium 139 133 - 145 mmol/L LAB CHEMISTRY METHOD 12/07/2024 2:42 PM [facility] Potassium 3.7 3.5 - 5.5 mmol/L LAB CHEMISTRY METHOD 12/07/2024 2:42 PM [facility] Chloride 107 96 - 110 mmol/L LAB CHEMISTRY METHOD 12/07/2024 2:42 PM [facility] CO2 28 21 - 32 mmol/L LAB CHEMISTRY METHOD 12/07/2024 2:42 PM [facility] Anion Gap 4 3 - 11 LAB CHEMISTRY METHOD 12/07/2024 2:42 PM [facility] Glucose 123(H) 70 - 100 mg/dL LAB CHEMISTRY METHOD 12/07/2024 2:42 PM [facility] BUN 17 5 - 25 mg/dL LAB CHEMISTRY METHOD 12/07/2024 2:42 PM [facility] Creatinine 0.73 0.70 - 1.30 mg/dL LAB CHEMISTRY METHOD 12/07/2024 2:42 PM [facility] eGFR 105 >=60 mL/min/1. 73m2 LAB CHEMISTRY METHOD 12/07/2024 2:42 PM [facility] Comment:Calculation based on the Chronic Kidney Disease Epidemiology Collaboration (CKD-EPI) equation refit without adjustment for race. BUN/Creatinine Ratio 23.3 LAB CHEMISTRY METHOD 12/07/2024 2:42 PM [facility] Calcium 9.1 8.5 - 10.5 mg/dL LAB CHEMISTRY METHOD 12/07/2024 2:42 PM [facility] AST (SGOT) 25 10 - 42 unit/L LAB CHEMISTRY METHOD 12/07/2024 2:42 PM [facility] ALT (SGPT) 62(H) 10 - 60 unit/L LAB CHEMISTRY METHOD 12/07/2024 2:42 PM [facility] Alkaline Phosphatase 101 42 - 121 unit/L LAB CHEMISTRY METHOD 12/07/2024 2:42 PM [facility] Total Protein 6.6 6.0 - 8.0 g/dL LAB CHEMISTRY METHOD 12/07/2024 2:42 PM [facility] Albumin 3.6 3.2 - 5.0 g/dL LAB CHEMISTRY METHOD 12/07/2024 2:42 PM [facility] Total Bilirubin 0.2 0.0 - 1.4 mg/dL LAB CHEMISTRY METHOD 12/07/2024 2:42 PM [facility] Blood Venous blood specimen / Unknown Venipuncture / Unknown 12/07/2024 9:42 AM EST 12/07/2024 11:45 AM EST us Ailyn Stringer MD LAB BLOOD ORDERABLES Fin al Result [facility] [address] [place] [address], [place] [phone] * (ABNORMAL) Complete blood count (12/07/2024 9:42 AM EST) [facility] WBC 6.7 4.8 - 10.8 K/mcL LAB HEMETOLOGY METHOD 12/07/2024 2:21 PM [facility] RBC 4.60 4.50 - 5.50 M/mcL LAB HEMETOLOGY METHOD 12/07/2024 2:21 PM [facility] Hemoglobin 14.7 13.5 - 17.5 g/dL LAB HEMETOLOGY METHOD 12/07/2024 2:21 PM [facility] Hematocrit 44.6 42.0 - 54.0 % LAB HEMETOLOGY METHOD 12/07/2024 2:21 PM [facility] MCV 97.8 79.0 - 98.0 FL LAB HEMETOLOGY METHOD 12/07/2024 2:21 PM [facility] MCH 32.2(H) 27.0 - 32.0 pcg LAB HEMETOLOGY METHOD 12/07/2024 2:21 PM [facility] MCHC 33.0 32.0 - 37.0 g/dL LAB HEMETOLOGY METHOD 12/07/2024 2:21 PM [facility] RDW 12.8 11.0 - 15.0 % LAB HEMETOLOGY METHOD 12/07/2024 2:21 PM [facility] Platelets 286 130 - 400 K/mcL LAB HEMETOLOGY METHOD 12/07/2024 2:21 PM [facility] MPV 10.5 7.0 - 11.0 FL LAB HEMETOLOGY METHOD 12/07/2024 2:21 PM [facility] NRBC 0.0 <1.0 % LAB HEMETOLOGY METHOD 12/07/2024 2:21 PM EST [facility] NRBC Absolute 0.00 <0.10 K/mcL LAB HEMETOLOGY METHOD 12/07/2024 2:21 PM EST [facility] Blood Venous blood specimen / Unknown Venipuncture / Unknown 12/07/2024 9:42 AM EST 12/07/2024 11:45 AM EST us Ailyn Stringer MD LAB BLOOD ORDERABLES Fin al Result [facility] [address] [place] [address], documented in this encounter Visit Diagnoses Diagnosis Malignant neoplasm of brain, unspecified (CMS/HCC V24, CMS/HCC V28) documented in this encounter Care Teams Caster Helper Relationship Specialty Start Date End Date Physician, No Pcp PCP - General 11/05/24 documented as of this encounter
--- OUTSIDE RECORDS SUMMARY | 2025-07-28 22:22 | XMS_ITS | Encounter Summary ---
Author Organization [facility] Address [address] [place] [address] Care Team Providers Care Community Health Navigator Name Role Phone Physician, No Pcp Primary Care Provider Unavaila ble Encounter Details Date Type Department Care Team (Late st Contact Info) Description 03/21/[address] [facility] - Main Lab 299 [facility] [place] [address] Ailyn Stringer MD [address] [phone] Malignant neoplasm of brain, unspecified (CMS/HCC V24, [...] Associated Diagnosis Comments COMPLETE BLOOD COUNT Routine 03/22/2025 8:30 AM EDT Malignant neoplasm of brain, unspecified ([facility]/HCC V24, [facility] V28) COMPREHENSIVE METABOLIC PANEL Routine 03/22/2025 8:30 AM EDT Malignant neoplasm of brain, unspecified ([facility]/HCC V24, [facility]/HCC V28) documented in this encounter Results * (ABNORMAL) Comprehensive metabolic panel (03/22/2025 8:30 AM EDT) Sodium 140 133 - 145 mmol/L LAB CHEMISTRY METHOD 03/22/2025 1:36 PM [facility] Potassium 4.0 3.5 - 5.5 mmol/L LAB CHEMISTRY METHOD 03/22/2025 1:36 PM [facility] Chloride 106 96 - 110 mmol/L LAB CHEMISTRY METHOD 03/22/2025 1:36 PM [facility] CO2 25 21 - 32 mmol/L LAB CHEMISTRY METHOD 03/22/2025 1:36 PM [facility] Anion Gap 9 3 - 11 LAB CHEMISTRY METHOD 03/22/2025 1:36 PM [facility] Glucose 189(H) 70 - 100 mg/dL LAB CHEMISTRY METHOD 03/22/2025 1:36 PM [facility] BUN 8 5 - 25 mg/dL LAB CHEMISTRY METHOD 03/22/2025 1:36 PM [facility] Creatinine 0.72 0.70 - 1.30 mg/dL LAB CHEMISTRY METHOD 03/22/2025 1:36 PM [facility] eGFR 105 >=60 mL/min/1. 73m2 LAB CHEMISTRY METHOD 03/22/2025 1:36 PM [facility] Comment:Calculation based on the Chronic Kidney Disease Epidemiology Collaboration (CKD-EPI) equation refit without adjustment for race. BUN/Creatinine Ratio 11.1 LAB CHEMISTRY METHOD 03/22/2025 1:36 PM [facility] Calcium 8.7 8.5 - 10.5 mg/dL LAB CHEMISTRY METHOD 03/22/2025 1:36 PM [facility] AST (SGOT) 37 10 - 42 unit/L LAB CHEMISTRY METHOD 03/22/2025 1:36 PM [facility] ALT (SGPT) 43 10 - 60 unit/L LAB CHEMISTRY METHOD 03/22/2025 1:36 PM [facility] Alkaline Phosphatase 136(H) 42 - 121 unit/L LAB CHEMISTRY METHOD 03/22/2025 1:36 PM [facility] Total Protein 6.6 6.0 - 8.0 g/dL LAB CHEMISTRY METHOD 03/22/2025 1:36 PM [facility] Albumin 3.6 3.2 - 5.0 g/dL LAB CHEMISTRY METHOD 03/22/2025 1:36 PM [facility] Total Bilirubin 0.2 0.0 - 1.4 mg/dL LAB CHEMISTRY METHOD 03/22/2025 1:36 PM [facility] Blood Venous blood specimen / Unknown Venipuncture / Unknown 03/22/2025 8:30 AM EDT 03/22/2025 12:08 PM EDT us Ailyn Stringer MD LAB BLOOD ORDERABLES Fin al Result [facility] [address] [place] [address], * (ABNORMAL) Complete blood count (03/22/2025 8:30 AM EDT) WBC 6.9 4.8 - 10.8 K/mcL LAB HEMETOLOGY METHOD 03/22/2025 2:06 PM EDT [facility] RBC 4.90 4.50 - 5.50 M/mcL LAB HEMETOLOGY METHOD 03/22/2025 2:06 PM EDT [facility] Hemoglobin 15.5 13.5 - 17.5 g/dL LAB HEMETOLOGY METHOD 03/22/2025 2:06 PM EDT [facility] Hematocrit 46.2 42.0 - 54.0 % LAB HEMETOLOGY METHOD 03/22/2025 2:06 PM EDT [facility] MCV 94.7 79.0 - 98.0 FL LAB HEMETOLOGY METHOD 03/22/2025 2:06 PM EDT [facility] MCH 31.8 27.0 - 32.0 pcg LAB HEMETOLOGY METHOD 03/22/2025 2:06 PM EDT [facility] MCHC 33.5 32.0 - 37.0 g/dL LAB HEMETOLOGY METHOD 03/22/2025 2:06 PM EDT [facility] RDW 12.6 11.0 - 15.0 % LAB HEMETOLOGY METHOD 03/22/2025 2:06 PM T [facility] Platelets 279 130 - 400 K/mcL LAB HEMETOLOGY METHOD 03/22/2025 2:06 PM EDT [facility] MPV 11.1(H) 7.0 - 11.0 FL LAB HEMETOLOGY METHOD 03/22/2025 2:06 PM EDT [facility] NRBC 0.0 <1.0 % LAB HEMETOLOG METHOD 03/22/2025 2:06 PM EDT [facility] NRBC Absolute 0.00 <0.10 K/mcL LAB HEMETOLOGY METHOD 03/22/2025 2:06 PM EDT [facility] Blood Venous blood specimen / Unknown Venipuncture / Unknown 03/22/2025 8:30 AM EDT 03/22/2025 12:08 PM EDT us Ailyn Stringer MD LAB BLOOD ORDERABLES Fin al Result [facility] [address] [place] [address], documented in this encounter Visit Diagnoses Diagnosis Malignant neoplasm of brain, unspecified (CMS/HCC V24, CMS/HCC V28) documented in this encounter Care Teams Community Health Navigator Relationship Specialty Start Date End Date Physician, No Pcp PCP - General 11/05/24 documented as of this encounter
--- OUTSIDE RECORDS SUMMARY | 2025-07-28 22:22 | XMS_ITS | Encounter Summary ---
Author Organization [facility] Address [address] [place] [address] Care Team Providers Care Hospital Unit Coordinator Name Role Phone Physician, No Pcp Primary Care Provider Unavaila ble Encounter Details Date Type Department Care Team (Late st Contact Info) Description 01/09/[address] [facility] - Main Lab 299 [facility] [place] [address] Ailyn Stringer MD [address] [phone] Encounter for therapeutic drug level monitoring Social [...] Associated Diagnosis Comments PHENYTOIN LEVEL, TOTAL Routine 01/09/2025 5:53 AM EST Encounter for therapeutic drug level monitoring documented in this encounter Results * Phenytoin level total (01/09/2025 5:53 AM EST) Phenytoin Level 11.3 10.0 - 20.0 mcg/mL LAB CHEMISTRY METHOD 01/09/2025 11:51 AM EST [facility] Blood Venous blood specimen / Unknown Venipuncture / Unknown 01/09/2025 5:53 AM EST 01/09/2025 9:58 AM EST Ailyn Stringer MD LAB BLOOD ORDERABLES Fin al Result [facility] [address] [place] [address], documented in this encounter Visit Diagnoses Diagnosis Encounter for therapeutic drug level monitoring documented in this encounter Care Teams Hospital Unit Coordinator Relationship Specialty Start Date End Date Physician, No Pcp PCP - General 11/05/24 documented as of this encounter
--- OUTSIDE RECORDS SUMMARY | 2025-07-28 22:22 | XMS_ITS | Encounter Summary ---
Author Organization [facility] Address [address] [place] [address] Care Team Providers Care Tax Technician Name Role Phone Physician, No Pcp Primary Care Provider Unavaila ble Encounter Details Date Type Department Care Team (Late st Contact Info) Description 04/16/[address] [facility] - Main Lab 299 [facility] [place] [address] Ailyn Stringer MD [address] [phone] Malignant neoplasm of brain, unspecified (CMS/HCC V24, [...] Associated Diagnosis Comments COMPLETE BLOOD COUNT Routine 04/19/2025 6:05 AM EDT Malignant neoplasm of brain, unspecified ([facility] V24, [facility] V28) COMPREHENSIVE METABOLIC PANEL Routine 04/19/2025 6:05 AM EDT Malignant neoplasm of brain, unspecified ([facility]/HCC V24, [facility]/HCC V28) documented in this encounter Results * (ABNORMAL) Comprehensive metabolic panel (04/19/2025 6:05 AM EDT) Sodium 142 133 - 145 mmol/L LAB CHEMISTRY METHOD 04/19/2025 12:43 PM [facility] Potassium 4.1 3.5 - 5.5 mmol/L LAB CHEMISTRY METHOD 04/19/2025 12:43 PM [facility] Chloride 110 96 - 110 mmol/L LAB CHEMISTRY METHOD 04/19/2025 12:43 PM [facility] CO2 23 21 - 32 mmol/L LAB CHEMISTRY METHOD 04/19/2025 12:43 PM [facility] Anion Gap 9 3 - 11 LAB CHEMISTRY METHOD 04/19/2025 12:43 PM [facility] Glucose 116(H) 70 - 100 mg/dL LAB CHEMISTRY METHOD 04/19/2025 12:43 PM [facility] BUN 16 5 - 25 mg/dL LAB CHEMISTRY METHOD 04/19/2025 12:43 PM [facility] Creatinine 0.85 0.70 - 1.30 mg/dL LAB CHEMISTRY METHOD 04/19/2025 12:43 PM [facility] eGFR 100 >=60 mL/min/1. 73m2 LAB CHEMISTRY METHOD 04/19/2025 12:43 PM [facility] Comment:Calculation based on the Chronic Kidney Disease Epidemiology Collaboration (CKD-EPI) equation refit without adjustment for race. BUN/Creatinine Ratio 18.8 LAB CHEMISTRY METHOD 04/19/2025 12:43 PM [facility] Calcium 8.5 8.5 - 10.5 mg/dL LAB CHEMISTRY METHOD 04/19/2025 12:43 PM [facility] AST (SGOT) 24 10 - 42 unit/L LAB CHEMISTRY METHOD 04/19/2025 12:43 PM [facility] ALT (SGPT) 47 10 - 60 unit/L LAB CHEMISTRY METHOD 04/19/2025 12:43 PM [facility] Alkaline Phosphatase 162(H) 42 - 121 unit/L LAB CHEMISTRY METHOD 04/19/2025 12:43 PM [facility] Total Protein 6.8 6.0 - 8.0 g/dL LAB CHEMISTRY METHOD 04/19/2025 12:43 PM [facility] Albumin 3.5 3.2 - 5.0 g/dL LAB CHEMISTRY METHOD 04/19/2025 12:43 PM [facility] Total Bilirubin 0.2 0.0 - 1.4 mg/dL LAB CHEMISTRY METHOD 04/19/2025 12:43 PM [facility] Blood Venous blood specimen / Unknown Venipuncture / Unknown 04/19/2025 6:05 AM EDT 04/19/2025 10:28 AM EDT us Ailyn Stringer MD LAB BLOOD ORDERABLES Fin al Result [facility] [address] [place] [address], * (ABNORMAL) Complete blood count (04/19/2025 6:05 AM EDT) WBC 7.6 4.8 - 10.8 K/mcL LAB HEMETOLOGY METHOD 04/19/2025 2:38 PM EDT [facility] RBC 4.60 4.50 - 5.50 M/mcL LAB HEMETOLOGY METHOD 04/19/2025 2:38 PM EDT [facility] Hemoglobin 14.6 13.5 - 17.5 g/dL LAB HEMETOLOGY METHOD 04/19/2025 2:38 PM EDT [facility] Hematocrit 46.1 42.0 - 54.0 % LAB HEMETOLOGY METHOD 04/19/2025 2:38 PM EDT [facility] MCV 99.4(H) 79.0 - 98.0 FL LAB HEMETOLOGY METHOD 04/19/2025 2:38 PM EDT [facility] MCH 31.5 27.0 - 32.0 pcg LAB HEMETOLOGY METHOD 04/19/2025 2:38 PM EDT [facility] MCHC 31.7(L) 32.0 - 37.0 g/dL LAB HEMETOLOGY METHOD 04/19/2025 2:38 PM EDT [facility] RDW 13.2 11.0 - 15.0 % LAB HEMETOLOGY METHOD 04/19/2025 2:38 PM EDT [facility] Platelets 308 130 - 400 K/mcL LAB HEMETOLOGY METHOD 04/19/2025 2:38 PM EDT [facility] MPV 10.8 7.0 - 11.0 FL LAB HEMETOLOGY METHOD 04/19/2025 2:38 PM EDT [facility] NRBC 0.0 <1.0 % LAB HEMETOLOGY METHOD 04/19/2025 2:38 PM EDT [facility] NRBC Absolute 0.00 <0.10 K/mcL LAB HEMETOLOGY METHOD 04/19/2025 2:38 PM EDT [facility] Blood Venous blood specimen / Unknown Venipuncture / Unknown 04/19/2025 6:05 AM EDT 04/19/2025 10:27 AM EDT us Ailyn Stringer MD LAB BLOOD ORDERABLES Fin al Result [facility] [address] [place] [address], documented in this encounter Visit Diagnoses Diagnosis Malignant neoplasm of brain, unspecified (CMS/HCC V24, CMS/HCC V28) documented in this encounter Care Teams Tax Technician Relationship Specialty Start Date End Date Physician, No Pcp PCP - General 11/05/24 documented as of this encounter
--- OUTSIDE RECORDS SUMMARY | 2025-07-28 22:22 | XMS_ITS | Encounter Summary ---
Author Organization [facility] Address [address] [place] [address] Care Team Providers Care Community Service Representative Name Role Phone Physician, No Pcp Primary Care Provider Unavaila ble Encounter Details Date Type Department Care Team (Late st Contact Info) Description 03/13/2025 Lab Requisition [facility] - Main Lab 299 [facility] [place] [address] Ailyn Stringer MD [address] [phone] Malignant neoplasm of brain, unspecified (CMS/HCC V24, CMS/HCC V28); Other seizures (CMS/HCC V24, CMS/HCC V28) Social [...] Associated Diagnosis Comments COMPLETE BLOOD COUNT Routine 03/15/2025 10:17 AM EDT Malignant neoplasm of brain, unspecified (CMS/HCC V24, CMS/HCC V28) Other seizures (CMS/HCC V24, CMS/HCC V28) PHENYTOIN LEVEL, TOTAL Routine 10:17 AM EDT Malignant neoplasm of brain, unspecified (CMS/HCC V24, CMS/HCC V28) Other seizures (CMS/HCC V24, CMS/HCC V28) COMPREHENSIVE METABOLIC PANEL Routine 03/15/2025 10:17 AM EDT Malignant neoplasm of brain, unspecified (CMS/HCC V24, CMS/HCC V28) Other seizures (CMS/HCC V24, CMS/HCC V28) documented in this encounter Results * Phenytoin level total (03/15/2025 10:17 AM EDT) Phenytoin Level 14.8 10.0 - 20.0 mcg/mL LAB CHEMISTRY METHOD 03/15/2025 3:33 PM EDT [facility] Blood Venous blood specimen / Unknown Venipuncture / Unknown 03/15/2025 10:17 AM EDT 03/15/2025 12:51 PM EDT us Ailyn Stringer MD LAB BLOOD ORDERABLES Fin al Result [facility] [address] [place] [address], [place] [phone] * (ABNORMAL) Comprehensive metabolic panel (03/15/2025 10:17 AM EDT) Sodium 137 133 - 145 mmol/L LAB CHEMISTRY METHOD 03/15/2025 3:33 PM [facility] Potassium 3.9 3.5 - 5.5 mmol/L LAB CHEMISTRY METHOD 03/15/2025 3:33 PM [facility] Chloride 106 96 - 110 mmol/L LAB CHEMISTRY METHOD 03/15/2025 3:33 PM [facility] CO2 22 21 - 32 mmol/L LAB CHEMISTRY METHOD 03/15/2025 3:33 PM [facility] Anion Gap 9 3 - 11 LAB CHEMISTRY METHOD 03/15/2025 3:33 PM [facility] Glucose 267(H) 70 - 100 mg/dL LAB CHEMISTRY METHOD 03/15/2025 3:33 PM [facility] BUN 15 5 - 25 mg/dL LAB CHEMISTRY METHOD 03/15/2025 3:33 PM [facility] Creatinine 0.72 0.70 - 1.30 mg/dL LAB CHEMISTRY METHOD 03/15/2025 3:33 PM [facility] eGFR 105 >=60 mL/min/1. 73m2 LAB CHEMISTRY METHOD 03/15/2025 3:33 PM [facility] Comment:Calculation based on the Chronic Kidney Disease Epidemiology Collaboration (CKD-EPI) equation refit without adjustment for race. BUN/Creatinine Ratio 20.8 LAB CHEMISTRY METHOD 03/15/2025 3:33 PM [facility] Calcium 8.7 8.5 - 10.5 mg/dL LAB CHEMISTRY METHOD 03/15/2025 3:33 PM EDT [facility] AST (SGOT) 17 10 - 42 unit/L LAB CHEMISTRY METHOD 03/15/2025 3:33 PM EDT [facility] ALT (SGPT) 40 10 - 60 unit/L LAB CHEMISTRY METHOD 03/15/2025 3:33 PM EDT [facility] Alkaline Phosphatase 164(H) 42 - 121 unit/L LAB CHEMISTRY METHOD 03/15/2025 3:33 PM EDT [facility] Total Protein 6.7 6.0 - 8.0 g/dL LAB CHEMISTRY METHOD 03/15/2025 3:33 PM EDT [facility] Albumin 3.5 3.2 - 5.0 g/dL LAB CHEMISTRY METHOD 03/15/2025 3:33 PM EDT [facility] Total Bilirubin 0.2 0.0 - 1.4 mg/dL LAB CHEMISTRY METHOD 03/15/2025 3:33 PM EDT [facility] Blood Venous blood specimen / Unknown Venipuncture / Unknown 03/15/2025 10:17 AM EDT 03/15/2025 12:51 PM EDT us Ailyn Stringer MD LAB BLOOD ORDERABLES Fin al Result [facility] [address] [place] [address], * (ABNORMAL) Complete blood count (03/15/2025 10:17 AM EDT) WBC 7.0 4.8 - 10.8 K/mcL LAB HEMETOLOGY METHOD 03/15/2025 2:09 PM EDT [facility] RBC 4.70 4.50 - 5.50 M/mcL LAB HEMETOLOGY METHOD 03/15/2025 2:09 PM EDT [facility] Hemoglobin 14.8 13.5 - 17.5 g/dL LAB HEMETOLOGY METHOD 03/15/2025 2:09 PM EDT [facility] Hematocrit 44.6 42.0 - 54.0 % LAB [facility] MCV 94.9 79.0 - 98.0 FL LAB HEMETOLOGY METHOD 03/15/2025 2:09 PM EDT [facility] MCH 31.5 27.0 - 32.0 pcg LAB HEMETOLOGY [facility]25 [facility] MCHC 33.2 32.0 - 37.0 g/dL LAB HEMETOLOGY METHOD 03/15/2025 2:09 PM [facility] RDW 12.4 11.0 - 15.0 % LAB HEMETOLOGY METHOD 03/15/2025 2:09 PM [facility] Platelets 262 130 - 400 K/mcL LAB HEMETOLOGY METHOD 03/15/2025 2:09 PM [facility] MPV 11.8(H) 7.0 - 11.0 FL LAB HEMETOLOGY METHOD 03/15/2025 2:09 PM [facility] NRBC 0.0 <1.0 % LAB HEMETOLOGY METHOD 03/15/2025 2:09 PM [facility] NRBC Absolute 0.00 <0.10 K/mcL LAB HEMETOLOGY METHOD 03/15/2025 2:09 PM [facility] Blood Venous blood specimen / Unknown Venipuncture / Unknown 03/15/2025 10:17 AM EDT 03/15/2025 12:51 PM EDT Ailyn Stringer MD LAB BLOOD ORDERABLES Fin al Result [facility] [address] [place] [address], documented in this encounter Visit Diagnoses Diagnosis Malignant neoplasm of brain, unspecified (CMS/HCC V24, CMS/HCC V28) Other seizures (CMS/HCC V24, CMS/HCC V28) documented in this encounter Care Teams Community Service Representative Relationship Specialty Start Date End Date Physician, No Pcp PCP - General 11/05/24 documented as of this encounter
--- OUTSIDE RECORDS SUMMARY | 2025-07-28 22:22 | XMS_ITS | Encounter Summary ---
Author Organization [facility] Address [address] [place] [address] Care Team Providers Care Welder Boilermaker Name Role Phone Physician, No Pcp Primary Care Provider Unavaila ble Encounter Details Date Type Department Care Team (Late st Contact Info) Description 01/05/2025 Lab Requisition [facility] - Main Lab 299 [facility] [place] [address] Ailyn Stringer MD [address] [phone] Encounter for therapeutic drug level monitoring Social [...] Associated Diagnosis Comments PHENYTOIN LEVEL, TOTAL Routine 01/06/2025 6:55 AM EST Encounter for therapeutic drug level monitoring documented in this encounter Results * (ABNORMAL) Phenytoin level total (01/06/2025 6:55 AM EST) Phenytoin Level 7.1(L) 10.0 - 20.0 mcg/mL LAB CHEMISTRY METHOD 01/06/2025 10:55 AM EST [facility] Blood Venous blood specimen / Unknown Venipuncture / Unknown 01/06/2025 6:55 AM EST 01/06/2025 9:07 AM EST us Ailyn Stringer MD LAB BLOOD ORDERABLES Fin al Result [facility] [address] [place] [address], documented in this encounter Visit Diagnoses Diagnosis Encounter for therapeutic drug level monitoring documented in this encounter Care Teams Welder Boilermaker Relationship Specialty Start Date End Date Physician, No Pcp PCP - General 11/05/24 documented as of this encounter
--- OUTSIDE RECORDS SUMMARY | 2025-07-28 22:22 | XMS_ITS | Encounter Summary ---
Author Organization [facility] Address [address] [place] [address] Care Team Providers Care Tar And Ammonia Pump Operator Name Role Phone Physician, No Pcp Primary Care Provider Unavaila ble Encounter Details Date Type Department Care Team (Late st Contact Info) Description 04/04/2025 Lab Requisition [facility] - Main Lab [address] [facility] [place] [address] Ailyn Stringer MD [address] [phone] Malignant neoplasm of brain, unspecified (CMS/HCC V24, [...] Associated Diagnosis Comments COMPLETE BLOOD COUNT Routine 04/06/2025 9:32 AM EDT Malignant neoplasm of brain, unspecified ([facility]CC V24, [facility] V28) COMPREHENSIVE METABOLIC PANEL Routine 04/06/2025 9:32 AM EDT Malignant neoplasm of brain, unspecified ([facility]/HCC V24, [facility]/HCC V28) documented in this encounter Results * (ABNORMAL) Comprehensive metabolic panel (04/06/2025 9:32 AM EDT) Sodium 136 133 - 145 mmol/L LAB CHEMISTRY METHOD 04/06/2025 12:30 PM [facility] Potassium 4.1 3.5 - 5.5 mmol/L LAB CHEMISTRY METHOD 04/06/2025 12:30 PM [facility] Comment:Hemolysis present Chloride 105 96 - 110 mmol/L LAB CHEMISTRY METHOD 04/06/2025 12:30 PM [facility] CO2 23 21 - 32 mmol/L LAB CHEMISTRY METHOD 04/06/2025 12:30 PM [facility] Anion Gap 8 3 - 11 LAB CHEMISTRY METHOD 04/06/2025 12:30 PM [facility] Glucose 156(H) 70 - 100 mg/dL LAB CHEMISTRY METHOD 04/06/2025 12:30 PM [facility] BUN 11 5 - 25 mg/dL LAB CHEMISTRY METHOD 04/06/2025 12:30 PM [facility] Creatinine 0.75 0.70 - 1.30 mg/dL LAB CHEMISTRY METHOD 04/06/2025 12:30 PM [facility] eGFR 104 >=60 mL/min/1. 73m2 LAB CHEMISTRY METHOD 04/06/2025 12:30 PM [facility] Comment:Calculation based on the Chronic Kidney Disease Epidemiology Collaboration (CKD-EPI) equation refit without adjustment for race. BUN/Creatinine Ratio 14.7 LAB CHEMISTRY METHOD 04/06/2025 12:30 PM [facility] Calcium 8.7 8.5 - 10.5 mg/dL LAB CHEMISTRY METHOD 04/06/2025 12:30 PM [facility] AST (SGOT) 21 10 - 42 unit/L LAB CHEMISTRY METHOD 04/06/2025 12:30 PM [facility] Comment:Hemolysis present ALT (SGPT) 39 10 - 60 unit/L LAB CHEMISTRY METHOD 04/06/2025 12:30 PM [facility] Alkaline Phosphatase 153(H) 42 - 121 unit/L LAB CHEMISTRY METHOD 04/06/2025 12:30 PM [facility] Total Protein 6.8 6.0 - 8.0 g/dL LAB CHEMISTRY METHOD 04/06/2025 12:30 PM [facility] Albumin 3.5 3.2 - 5.0 g/dL LAB CHEMISTRY METHOD 04/06/2025 12:30 PM [facility] Total Bilirubin 0.3 0.0 - 1.4 mg/dL LAB CHEMISTRY METHOD 04/06/2025 12:30 PM [facility] Blood Venous blood specimen / Unknown Venipuncture / Unknown 04/06/2025 9:32 AM EDT 04/06/2025 10:51 AM EDT us Ailyn Stringer MD LAB BLOOD ORDERABLES Fin al Result [facility] [address] [place] [address], * (ABNORMAL) Complete blood count (04/06/2025 9:32 AM EDT) [facility] WBC 6.9 4.8 - 10.8 K/mcL LAB HEMETOLOGY METHOD 04/06/2025 12:24 PM EDT [facility] RBC 4.60 4.50 - 5.50 M/mcL LAB HEMETOLOGY METHOD 04/06/2025 12:24 PM EDT [facility] Hemoglobin 14.7 13.5 - 17.5 g/dL LAB HEMETOLOGY METHOD 04/06/2025 12:24 PM EDT [facility] Hematocrit 44.5 42.0 - 54.0 % LAB HEMETOLOGY METHOD 04/06/2025 12:24 PM EDT [facility] MCV 96.9 79.0 - 98.0 FL LAB HEMETOLOGY METHOD 04/06/2025 12:24 PM EDT [facility] MCH 32.0 27.0 - 32.0 pcg LAB HEMETOLOGY METHOD 04/06/2025 12:24 PM EDT [facility] MCHC 33.0 32.0 - 37.0 g/dL LAB HEMETOLOGY METHOD 04/06/2025 12:24 PM EDT [facility] RDW 12.8 11.0 - 15.0 % LAB HEMETOLOGY METHOD 04/06/2025 12:24 PM EDT [facility] Platelets 238 130 - 400 K/mcL LAB HEMETOLOGY METHOD 04/06/2025 12:24 PM EDT [facility] MPV 11.1(H) 7.0 - 11.0 FL LAB HEMETOLOGY METHOD 04/06/2025 12:24 PM EDT [facility] NRBC 0.0 <1.0 % LAB [facility] METHOD 04/06/2025 12:24 PM EDT [facility] NRBC Absolute 0.00 <0.10 K/mcL LAB HEMETOLOGY METHOD 04/06/2025 12:24 PM EDT [facility] Blood Venous blood specimen / Unknown Venipuncture / Unknown 04/06/2025 9:32 AM EDT 04/06/2025 10:51 AM EDT us Ailyn Stringer MD LAB BLOOD ORDERABLES Fin al Result [facility] [address] [place] [address], documented in this encounter Visit Diagnoses Diagnosis Malignant neoplasm of brain, unspecified (CMS/HCC V24, CMS/HCC V28) documented in this encounter Care Teams Tar And Ammonia Pump Operator Relationship Specialty Start Date End Date Physician, No Pcp PCP - General 11/05/24 documented as of this encounter
--- OUTSIDE RECORDS SUMMARY | 2025-07-28 22:22 | XMS_ITS | Encounter Summary ---
Author Organization [facility] Address [address] [place] [address] Care Team Providers Care Stencil Printer Name Role Phone Physician, No Pcp Primary Care Provider Unavaila ble Encounter Details Date Type Department Care Team (Late st Contact Info) Description 01/02/[address] [facility] - Main Lab [address] [facility] [place] [address] Ailyn Stringer MD [address] [phone] Malignant neoplasm of brain, unspecified (CMS/HCC V24, [...] Associated Diagnosis Comments COMPLETE BLOOD COUNT Routine 01/04/2025 8:24 AM EST Malignant neoplasm of brain, unspecified (CMS/HCC) Encounter for therapeutic drug level monitoring PHENYTOIN LEVEL, FREE Routine 01/04/2025 8:24 AM EST Malignant neoplasm of brain, unspecified (CMS/HCC) Encounter for therapeutic drug level monitoring COMPREHENSIVE METABOLIC PANEL Routine 01/04/2025 8:24 AM EST Malignant neoplasm of brain, unspecified (CMS/HCC) Encounter for therapeutic drug level monitoring documented in this encounter Results * (ABNORMAL) Phenytoin level free (01/04/2025 8:24 AM EST) Phenytoin, Free (Dilantin) <0.8(L) 0.8 - 2.0 ug/mL 01/06/2025 1:21 PM EST [facility] Comment: Phenytoin free toxic level: >3.0 ug/mL If applicable, any drug confirmation testing reported here was developed and the performance characteristics determined by [place] [place] [place]. This confirmation testing has not been cleared or approved by the FDA. The laboratory is regulated under CLIA as qualified to perform high-complexity testing. This test is used for patient testing purposes. It should not be regarded as investigational or for research. Test performed at [place] [place], [address] , [place] [address] Vee Em MD, PhD - Well Logger Blood Venous blood specimen / Unknown Venipuncture / Unknown 01/04/2025 8:24 AM EST 01/04/2025 11:21 AM EST Ailyn Stringer MD LAB BLOOD ORDERABLES Fin al Result [facility] [address] [place] [address] * (ABNORMAL) Comprehensive metabolic panel (01/04/2025 8:24 AM EST) Pathologist [facility] Sodium 141 133 - 145 mmol/L LAB CHEMISTRY METHOD 01/04/2025 12:47 PM [facility] Potassium 3.6 3.5 - 5.5 mmol/L LAB CHEMISTRY METHOD 01/04/2025 12:47 PM [facility] Chloride 109 96 - 110 mmol/L LAB CHEMISTRY METHOD 01/04/2025 12:47 PM [facility] CO2 21 21 - 32 mmol/L LAB CHEMISTRY METHOD 01/04/2025 12:47 PM [facility] Anion Gap 11 3 - 11 LAB CHEMISTRY METHOD 01/04/2025 12:47 PM [facility] Glucose 225(H) 70 - 100 mg/dL LAB CHEMISTRY METHOD 01/04/2025 12:47 PM [facility] BUN 13 5 - 25 mg/dL LAB CHEMISTRY METHOD 01/04/2025 12:47 PM [facility] Creatinine 0.80 0.70 - 1.30 mg/dL LAB CHEMISTRY METHOD 01/04/2025 12:47 PM [facility] eGFR 103 >=60 mL/min/1. 73m2 LAB CHEMISTRY METHOD 01/04/2025 12:47 PM [facility] Comment:Calculation based on the Chronic Kidney Disease Epidemiology Collaboration (CKD-EPI) equation refit without adjustment for race. BUN/Creatinine Ratio 16.3 LAB CHEMISTRY METHOD 01/04/2025 12:47 PM [facility] Calcium 8.9 8.5 - 10.5 mg/dL LAB CHEMISTRY METHOD 01/04/2025 12:47 PM [facility] AST (SGOT) 31 10 - 42 unit/L LAB CHEMISTRY METHOD 01/04/2025 12:47 PM [facility] ALT (SGPT) 72(H) 10 - 60 unit/L LAB CHEMISTRY METHOD 01/04/2025 12:47 PM [facility] Alkaline Phosphatase 122(H) 42 - 121 unit/L LAB CHEMISTRY METHOD 01/04/2025 12:47 PM [facility] Total Protein 7.1 6.0 - 8.0 g/dL LAB CHEMISTRY METHOD 01/04/2025 12:47 PM [facility] Albumin 3.6 3.2 - 5.0 g/dL LAB CHEMISTRY METHOD 01/04/2025 12:47 PM [facility] Total Bilirubin 0.3 0.0 - 1.4 mg/dL LAB CHEMISTRY METHOD 01/04/2025 12:47 PM [facility] Blood Venous blood specimen / Unknown Venipuncture / Unknown 01/04/2025 8:24 AM EST 01/04/2025 11:17 AM EST us Ailyn Stringer MD LAB BLOOD ORDERABLES Fin al Result [facility] [address] [place] [address], * (ABNORMAL) Complete blood count (01/04/2025 8:24 AM EST) WBC 7.6 4.8 - 10.8 K/mcL LAB HEMETOLOGY METHOD 01/04/2025 2:13 PM [facility] RBC 4.80 4.50 - 5.50 M/mcL LAB HEMETOLOGY METHOD 01/04/2025 2:13 PM [facility] Hemoglobin 15.6 13.5 - 17.5 g/dL LAB HEMETOLOGY METHOD 01/04/2025 2:13 PM [facility] Hematocrit 47.8 42.0 - 54.0 % LAB HEMETOLOGY METHOD 01/04/2025 2:13 PM [facility] MCV 99.2(H) 79.0 - 98.0 FL LAB HEMETOLOGY METHOD 01/04/2025 2:13 PM [facility] MCH 32.4(H) 27.0 - 32.0 pcg LAB HEMETOLOGY METHOD 01/04/2025 2:13 PM [facility] MCHC 32.6 32.0 - 37.0 g/dL LAB HEMETOLOGY METHOD 01/04/2025 2:13 PM [facility] RDW 12.4 11.0 - 15.0 % LAB HEMETOLOGY METHOD 01/04/2025 2:13 PM [facility] Platelets 294 130 - 400 K/mcL LAB HEMETOLOGY METHOD 01/04/2025 2:13 PM [facility] MPV 11.1(H) 7.0 - 11.0 FL LAB HEMETOLOGY METHOD 01/04/2025 2:13 PM [facility] NRBC 0.0 <1.0 % LAB HEMETOLOGY METHOD 01/04/2025 2:13 PM [facility] NRBC Absolute 0.00 <0.10 K/mcL LAB HEMETOLOGY METHOD 01/04/2025 2:13 PM [facility] Blood Venous blood specimen / Unknown Venipuncture / Unknown 01/04/2025 8:24 AM EST 01/04/2025 11:18 AM EST us Ailyn Stringer MD LAB BLOOD ORDERABLES Fin al Result [facility] [address] [place] [address], documented in this encounter Visit Diagnoses Diagnosis Malignant neoplasm of brain, unspecified (CMS/HCC V24, CMS/HCC V28) Encounter for therapeutic drug level monitoring documented in this encounter Care Teams Stencil Printer Relationship Specialty Start Date End Date Physician, No Pcp PCP - General 11/05/24 documented as of this encounter
--- OUTSIDE RECORDS SUMMARY | 2025-07-28 22:22 | XMS_ITS | Encounter Summary ---
Author Organization [facility] Address [address] [place] [address] Care Team Providers Care Correctional Treatment Specialist Name Role Phone Physician, No Pcp Primary Care Provider Unavaila ble Encounter Details Date Type Department Care Team (Late st Contact Info) Description 11/28/2024 Lab Requisition [facility] - Main Lab [address] [facility] [place] [address] Ailyn Stringer MD [address] [phone] Malignant neoplasm of brain, unspecified (CMS/HCC V24, [...] Associated Diagnosis Comments COMPLETE BLOOD COUNT Routine 11/30/2024 8:53 AM EST Malignant neoplasm of brain, unspecified (CMS/HCC) COMPREHENSIVE METABOLIC PANEL Routine 11/30/2024 8:53 AM EST Malignant neoplasm of brain, unspecified (CMS/HCC) documented in this encounter Results * (ABNORMAL) Comprehensive metabolic panel (11/30/2024 8:53 AM EST) Sodium 140 133 - 145 mmol/L LAB CHEMISTRY METHOD 11/30/2024 1:55 PM [facility] Potassium 3.6 3.5 - 5.5 mmol/L LAB CHEMISTRY METHOD 11/30/2024 1:55 PM [facility] Chloride 105 96 - 110 mmol/L LAB CHEMISTRY METHOD 11/30/2024 1:55 PM [facility] CO2 28 21 - 32 mmol/L LAB CHEMISTRY METHOD 11/30/2024 1:55 PM [facility] Anion Gap 7 3 - 11 LAB CHEMISTRY METHOD 11/30/2024 1:55 PM [facility] Glucose 123(H) 70 - 100 mg/dL LAB CHEMISTRY METHOD 11/30/2024 1:55 PM [facility] BUN 14 5 - 25 mg/dL LAB CHEMISTRY METHOD 11/30/2024 1:55 PM [facility] Creatinine 0.76 0.70 - 1.30 mg/dL LAB CHEMISTRY METHOD 11/30/2024 1:55 PM [facility] eGFR 104 >=60 mL/min/1. 73m2 LAB CHEMISTRY METHOD 11/30/2024 1:55 PM [facility] Comment:Calculation based on the Chronic Kidney Disease Epidemiology Collaboration (CKD-EPI) equation refit without adjustment for race. BUN/Creatinine Ratio 18.4 LAB CHEMISTRY METHOD 11/30/2024 1:55 PM [facility] Calcium 8.7 8.5 - 10.5 mg/dL LAB CHEMISTRY METHOD 11/30/2024 1:55 PM [facility] AST (SGOT) 23 10 - 42 unit/L LAB CHEMISTRY METHOD 11/30/2024 1:55 PM [facility] ALT (SGPT) 65(H) 10 - 60 unit/L LAB CHEMISTRY METHOD 11/30/2024 1:55 PM [facility] Alkaline Phosphatase 115 42 - 121 unit/L LAB CHEMISTRY METHOD 11/30/2024 1:55 PM [facility] Total Protein 6.5 6.0 - 8.0 g/dL LAB CHEMISTRY METHOD 11/30/2024 1:55 PM [facility] Albumin 3.5 3.2 - 5.0 g/dL LAB CHEMISTRY METHOD 11/30/2024 1:55 PM [facility] Total Bilirubin 0.2 0.0 - 1.4 mg/dL LAB CHEMISTRY METHOD 11/30/2024 1:55 PM [facility] Blood Venous blood specimen / Unknown Venipuncture / Unknown 11/30/2024 8:53 AM EST 11/30/2024 12:27 PM EST us Ailyn Stringer MD LAB BLOOD ORDERABLES Fin al Result [facility] [address] [place] [address], * (ABNORMAL) Complete blood count (11/30/2024 8:53 AM EST) [facility] WBC 6.8 4.8 - 10.8 K/mcL LAB HEMETOLOGY METHOD 11/30/2024 1:38 PM [facility] RBC 4.30(L) 4.50 - 5.50 M/mcL LAB HEMETOLOGY METHOD 11/30/2024 1:38 PM [facility] Hemoglobin 14.2 13.5 - 17.5 g/dL LAB HEMETOLOGY METHOD 11/30/2024 1:38 PM [facility] Hematocrit 43.4 42.0 - 54.0 % LAB HEMETOLOGY METHOD 11/30/2024 1:38 PM [facility] MCV 100.2(H) 79.0 - 98.0 FL LAB HEMETOLOGY METHOD 11/30/2024 1:38 PM [facility] MCH 32.8(H) 27.0 - 32.0 pcg LAB HEMETOLOGY METHOD 11/30/2024 1:38 PM [facility] MCHC 32.7 32.0 - 37.0 g/dL LAB HEMETOLOGY METHOD 11/30/2024 1:38 PM [facility] RDW 13.0 11.0 - 15.0 % LAB HEMETOLOGY METHOD 11/30/2024 1:38 PM [facility] Platelets 261 130 - 400 K/mcL LAB HEMETOLOGY METHOD 11/30/2024 1:38 PM [facility] MPV 10.8 7.0 - 11.0 FL LAB HEMETOLOGY METHOD 11/30/2024 1:38 PM [facility] NRBC 0.0 <1.0 % LAB HEMETOLOGY METHOD 11/30/2024 1:38 PM [facility] NRBC Absolute 0.00 <0.10 K/mcL LAB HEMETOLOGY METHOD 11/30/2024 1:38 PM EST [facility] Blood Venous blood specimen / Unknown Venipuncture / Unknown 11/30/2024 8:53 AM EST 11/30/2024 12:27 PM EST us Ailyn Stringer MD LAB BLOOD ORDERABLES Fin al Result [facility] [address] [place] [address], documented in this encounter Visit Diagnoses Diagnosis Malignant neoplasm of brain, unspecified (CMS/HCC V24, CMS/HCC V28) documented in this encounter Care Teams Correctional Treatment Specialist Relationship Specialty Start Date End Date Physician, No Pcp PCP - General 11/05/24 documented as of this encounter
--- OUTSIDE RECORDS SUMMARY | 2025-07-28 22:22 | XMS_ITS | Encounter Summary ---
Author Organization [facility] Address [address] [place] [address] Care Team Providers Care Machine Sewer Name Role Phone Physician, No Pcp Primary Care Provider Unavaila ble Encounter Details Date Type Department Care Team (Late st Contact Info) Description 04/30/2025 Lab Requisition [facility] - Main Lab [address] [facility] [place] [address] Ailyn Stringer MD [address] [phone] Malignant neoplasm of brain, unspecified (CMS/HCC V24, [...] Associated Diagnosis Comments COMPLETE BLOOD COUNT Routine 05/03/2025 5:55 AM EDT Malignant neoplasm of brain, unspecified ([facility]/HCC V24, [facility] V28) COMPREHENSIVE METABOLIC PANEL Routine 05/03/2025 5:55 AM EDT Malignant neoplasm of brain, unspecified ([facility]/HCC V24, [facility]/HCC V28) documented in this encounter Results * (ABNORMAL) Comprehensive metabolic panel (05/03/2025 5:55 AM EDT) Sodium 141 133 - 145 mmol/L LAB CHEMISTRY METHOD 05/03/2025 1:32 PM [facility] Potassium 3.8 3.5 - 5.5 mmol/L LAB CHEMISTRY METHOD 05/03/2025 1:32 PM [facility] Chloride 105 96 - 110 mmol/L LAB CHEMISTRY METHOD 05/03/2025 1:32 PM [facility] CO2 25 21 - 32 mmol/L LAB CHEMISTRY METHOD 05/03/2025 1:32 PM [facility] Anion Gap 11 3 - 11 LAB CHEMISTRY METHOD 05/03/2025 1:32 PM [facility] Glucose 118(H) 70 - 100 mg/dL LAB CHEMISTRY METHOD 05/03/2025 1:32 PM [facility] BUN 14 5 - 25 mg/dL LAB CHEMISTRY METHOD 05/03/2025 1:32 PM [facility] Creatinine 0.74 0.70 - 1.30 mg/dL LAB CHEMISTRY METHOD 05/03/2025 1:32 PM [facility] eGFR 104 >=60 mL/min/1. 73m2 LAB CHEMISTRY METHOD 05/03/2025 1:32 PM [facility] Comment:Calculation based on the Chronic Kidney Disease Epidemiology Collaboration (CKD-EPI) equation refit without adjustment for race. BUN/Creatinine Ratio 18.9 LAB CHEMISTRY METHOD 05/03/2025 1:32 PM [facility] Calcium 8.9 8.5 - 10.5 mg/dL LAB CHEMISTRY METHOD 05/03/2025 1:32 PM [facility] AST (SGOT) 23 10 - 42 unit/L LAB CHEMISTRY METHOD 05/03/2025 1:32 PM [facility] ALT (SGPT) 51 10 - 60 unit/L LAB CHEMISTRY METHOD 05/03/2025 1:32 PM [facility] Alkaline Phosphatase 165(H) 42 - 121 unit/L LAB CHEMISTRY METHOD 05/03/2025 1:32 PM [facility] Total Protein 6.7 6.0 - 8.0 g/dL LAB CHEMISTRY METHOD 05/03/2025 1:32 PM [facility] Albumin 3.3 3.2 - 5.0 g/dL LAB CHEMISTRY METHOD 05/03/2025 1:32 PM [facility] Total Bilirubin 0.3 0.0 - 1.4 mg/dL LAB CHEMISTRY METHOD 05/03/2025 1:32 PM [facility] Blood Venous blood specimen / Unknown Venipuncture / Unknown 05/03/2025 5:55 AM EDT 05/03/2025 11:29 AM EDT us Ailyn Stringer MD LAB BLOOD ORDERABLES Fin al Result [facility] [address] [place] [address], * Complete blood count (05/03/2025 5:55 AM EDT) Pathologist [facility] WBC 6.7 4.8 - 10.8 K/mcL LAB HEMETOLOGY METHOD 05/03/2025 12:24 PM EDT [facility] RBC 4.90 4.50 - 5.50 M/mcL LAB HEMETOLOGY METHOD 05/03/2025 12:24 PM EDT [facility] Hemoglobin 14.9 13.5 - 17.5 g/dL LAB HEMETOLOGY METHOD 05/03/2025 12:24 PM EDT [facility] Hematocrit 45.4 42.0 - 54.0 % LAB HEMETOLOGY METHOD 05/03/2025 12:24 PM EDT [facility] MCV 92.8 79.0 - 98.0 FL LAB HEMETOLOGY METHOD 05/03/2025 12:24 PM EDT [facility] MCH 30.5 27.0 - 32.0 pcg LAB HEMETOLOGY METHOD 05/03/2025 12:24 PM EDT [facility] MCHC 32.8 32.0 - 37.0 g/dL LAB HEMETOLOGY METHOD 05/03/2025 12:24 PM EDT [facility] RDW 13.2 11.0 - 15.0 % LAB HEMETOLOGY METHOD 05/03/2025 12:24 PM EDT [facility] Platelets 282 130 - 400 K/mcL LAB HEMETOLOGY METHOD 05/03/2025 12:24 PM EDT [facility] MPV 10.9 7.0 - 11.0 FL LAB HEMETOLOGY METHOD 05/03/2025 12:24 PM EDT [facility] NRBC 0.0 <1.0 % LAB HEMETOLOGY METHOD 05/03/2025 12:24 PM EDT [facility] NRBC Absolute 0.00 <0.10 K/mcL LAB HEMETOLOGY METHOD 05/03/2025 12:24 PM EDT [facility] Blood Venous blood specimen / Unknown Venipuncture / Unknown 05/03/2025 5:55 AM EDT 05/03/2025 11:29 AM EDT us Ailyn Stringer MD LAB BLOOD ORDERABLES Fin al Result [facility] [address] [place] [address], documented in this encounter Visit Diagnoses Diagnosis Malignant neoplasm of brain, unspecified (CMS/HCC V24, CMS/HCC V28) documented in this encounter Care Teams Machine Sewer Relationship Specialty Start Date End Date Physician, No Pcp PCP - General 11/05/24 documented as of this encounter
--- OUTSIDE RECORDS SUMMARY | 2025-07-28 22:22 | XMS_ITS | Encounter Summary ---
Author Organization [facility] Address [address] [place] [address] Care Team Providers Care Help Desk Intern Name Role Phone Physician, No Pcp Primary Care Provider Unavaila ble Encounter Details Date Type Department Care Team (Late st Contact Info) Description 04/23/2025 Lab Requisition [facility] - Main Lab [address] [facility] [place] [address] Ailyn Stringer MD [address] [phone] Malignant neoplasm of brain, unspecified (CMS/HCC V24, [...] Associated Diagnosis Comments COMPLETE BLOOD COUNT Routine 04/26/2025 5:36 AM EDT Malignant neoplasm of brain, unspecified ([facility] V24, [facility] V28) COMPREHENSIVE METABOLIC PANEL Routine 04/26/2025 5:36 AM EDT Malignant neoplasm of brain, unspecified ([facility]/HCC V24, [facility]/HCC V28) documented in this encounter Results * (ABNORMAL) Comprehensive metabolic panel (04/26/2025 5:36 AM EDT) Sodium 137 133 - 145 mmol/L LAB CHEMISTRY METHOD 04/26/2025 1:34 PM [facility] Potassium 3.7 3.5 - 5.5 mmol/L LAB CHEMISTRY METHOD 04/26/2025 1:34 PM [facility] Chloride 105 96 - 110 mmol/L LAB CHEMISTRY METHOD 04/26/2025 1:34 PM [facility] CO2 23 21 - 32 mmol/L LAB CHEMISTRY METHOD 04/26/2025 1:34 PM [facility] Anion Gap 9 3 - 11 LAB CHEMISTRY METHOD 04/26/2025 1:34 PM [facility] Glucose 123(H) 70 - 100 mg/dL LAB CHEMISTRY METHOD 04/26/2025 1:34 PM [facility] BUN 14 5 - 25 mg/dL LAB CHEMISTRY METHOD 04/26/2025 1:34 PM [facility] Creatinine 0.71 0.70 - 1.30 mg/dL LAB CHEMISTRY METHOD 04/26/2025 1:34 PM [facility] eGFR 106 >=60 mL/min/1. 73m2 LAB CHEMISTRY METHOD 04/26/2025 1:34 PM [facility] Comment:Calculation based on the Chronic Kidney Disease Epidemiology Collaboration (CKD-EPI) equation refit without adjustment for race. BUN/Creatinine Ratio 19.7 LAB CHEMISTRY METHOD 04/26/2025 1:34 PM [facility] Calcium 8.7 8.5 - 10.5 mg/dL LAB CHEMISTRY METHOD 04/26/2025 1:34 PM [facility] AST (SGOT) 22 10 - 42 unit/L LAB CHEMISTRY METHOD 04/26/2025 1:34 PM [facility] ALT (SGPT) 57 10 - 60 unit/L LAB CHEMISTRY METHOD 04/26/2025 1:34 PM [facility] Alkaline Phosphatase 152(H) 42 - 121 unit/L LAB CHEMISTRY METHOD 04/26/2025 1:34 PM [facility] Total Protein 6.7 6.0 - 8.0 g/dL LAB CHEMISTRY METHOD 04/26/2025 1:34 PM [facility] Albumin 3.6 3.2 - 5.0 g/dL LAB CHEMISTRY METHOD 04/26/2025 1:34 PM [facility] Total Bilirubin 0.2 0.0 - 1.4 mg/dL LAB CHEMISTRY METHOD 04/26/2025 1:34 PM [facility] Blood Venous blood specimen / Unknown Venipuncture / Unknown 04/26/2025 5:36 AM EDT 04/26/2025 10:43 AM EDT us Ailyn Stringer MD LAB BLOOD ORDERABLES Fin al Result [facility] [address] [place] [address], * Complete blood count (04/26/2025 5:36 AM EDT) Pathologist [facility] WBC 6.8 4.8 - 10.8 K/mcL LAB HEMETOLOGY METHOD 04/26/2025 11:07 AM EDT [facility] RBC 4.70 4.50 - 5.50 M/mcL LAB HEMETOLOGY METHOD [facility] Hemoglobin 15.0 13.5 - 17.5 g/dL LAB HEMETOLOGY METHOD 04/26/2025 11:07 AM EDT [facility] Hematocrit 45.7 42.0 - 54.0 % LAB HEMETOLOGY METHOD 04/26/2025 11:07 AM EDT [facility] MCV 96.6 79.0 - 98.0 FL LAB HEMETOLOGY METHOD 04/26/2025 11:07 AM [facility] MCH 31.7 27.0 - 32.0 pcg LAB HEMETOLOGY METHOD 04/26/2025 11:07 AM EDT [facility] MCHC 32.8 32.0 - 37.0 g/dL LAB HEMETOLOGY METHOD 04/26/2025 11:07 AM EDT [facility] RDW 13.1 11.0 - 15.0 % LAB HEMETOLOGY METHOD 04/26/2025 11:07 AM [facility] Platelets 306 130 - 400 K/mcL LAB HEMETOLOGY METHOD 04/26/2025 11:07 AM EDT [facility] MPV 10.8 7.0 - 11.0 FL LAB HEMETOLOGY METHOD 04/26/2025 11:07 AM EDT [facility] NRBC 0.0 <1.0 % LAB HEMETOLOGY METHOD 04/26/2025 11:07 AM EDT [facility] NRBC Absolute 0.00 <0.10 K/mcL LAB HEMETOLOGY METHOD 04/26/2025 11:07 AM EDT [facility] Blood Venous blood specimen / Unknown Venipuncture / Unknown 04/26/2025 5:36 AM EDT 04/26/2025 10:43 AM EDT us Ailyn Stringer MD LAB BLOOD ORDERABLES Fin al Result [facility] [address] [place] [address], documented in this encounter Visit Diagnoses Diagnosis Malignant neoplasm of brain, unspecified (CMS/HCC V24, CMS/HCC V28) documented in this encounter Care Teams Help Desk Intern Relationship Specialty Start Date End Date Physician, No Pcp PCP - General 11/05/24 documented as of this encounter
--- OUTSIDE RECORDS SUMMARY | 2025-07-28 22:22 | XMS_ITS | Encounter Summary ---
Author Organization [facility] Address [address] [place] [address] Care Team Providers Care Diecast Machine Operator Name Role Phone Physician, No Pcp Primary Care Provider Unavaila ble Encounter Details Date Type Department Care Team (Late st Contact Info) Description 12/26/2024 Lab Requisition [facility] - Main Lab [address] [facility] [place] [address] Ailyn Stringer MD [address] [phone] Malignant neoplasm of brain, unspecified (CMS/HCC V24, [...] 11/06/2024 6:22 AM EST Jigna Kee RN * Because of a physical, mental, [...] Entry Date Author No 11/06/2024 6:22 AM iJgna Chávez RN documented in this encounter Plan of Treatment Not on file documented as of this encounter Procedures Procedure Name Priority Date/Time Associated Diagnosis Comments COMPLETE BLOOD COUNT Routine 12/28/2024 7:43 AM EST Malignant neoplasm of brain, unspecified (CMS/HCC) Other seizures (CMS/HCC) PHENYTOIN LEVEL, TOTAL Routine 7:43 AM EST Malignant neoplasm of brain, unspecified (CMS/HCC) Other seizures (CMS/HCC) COMPREHENSIVE METABOLIC PANEL Routine 12/28/2024 7:43 AM EST Malignant neoplasm of brain, unspecified (CMS/HCC) Other seizures (CMS/HCC) documented in this encounter Results * (ABNORMAL) Phenytoin level total (12/28/2024 7:43 AM EST) Phenytoin Level 28.4(HH) 10.0 - 20.0 mcg/mL LAB CHEMISTRY METHOD 12/28/2024 12:11 PM EST [facility] Blood Venous blood specimen / Unknown Venipuncture / Unknown 12/28/2024 7:43 AM EST 12/28/2024 10:11 AM EST us Ailyn Stringer MD LAB BLOOD ORDERABLES Fin al Result [facility] [address] [place] [address], * (ABNORMAL) Comprehensive metabolic panel (12/28/2024 7:43 AM EST) Sodium 141 133 - 145 mmol/L LAB CHEMISTRY METHOD 12/28/2024 10:57 AM [facility] Potassium 3.7 3.5 - 5.5 mmol/L LAB CHEMISTRY METHOD 12/28/2024 10:57 AM [facility] Chloride 108 96 - 110 mmol/L LAB CHEMISTRY METHOD 12/28/2024 10:57 AM [facility] CO2 23 21 - 32 mmol/L LAB CHEMISTRY METHOD 12/28/2024 10:57 AM [facility] Anion Gap 10 3 - 11 LAB CHEMISTRY METHOD 12/28/2024 10:57 AM [facility] Glucose 210(H) 70 - 100 mg/dL LAB CHEMISTRY METHOD 12/28/2024 10:57 AM [facility] BUN 13 5 - 25 mg/dL LAB CHEMISTRY METHOD 12/28/2024 10:57 AM [facility] Creatinine 0.81 0.70 - 1.30 mg/dL LAB CHEMISTRY METHOD 12/28/2024 10:57 AM [facility] eGFR 102 >=60 mL/min/1. 73m2 LAB CHEMISTRY METHOD 12/28/2024 10:57 AM [facility] Comment:Calculation based on the Chronic Kidney Disease Epidemiology Collaboration (CKD-EPI) equation refit without adjustment for race. BUN/Creatinine Ratio 16.0 LAB CHEMISTRY METHOD 12/28/2024 10:57 AM [facility] Calcium 8.9 8.5 - 10.5 mg/dL LAB CHEMISTRY METHOD 12/28/2024 10:57 AM [facility] AST (SGOT) 25 10 - 42 unit/L LAB CHEMISTRY METHOD 12/28/2024 10:57 AM [facility] ALT (SGPT) 55 10 - 60 unit/L LAB CHEMISTRY METHOD 12/28/2024 10:57 AM [facility] Alkaline Phosphatase 101 42 - 121 unit/L LAB CHEMISTRY METHOD 12/28/2024 10:57 AM [facility] Total Protein 6.7 6.0 - 8.0 g/dL LAB CHEMISTRY METHOD 12/28/2024 10:57 AM [facility] Albumin 3.5 3.2 - 5.0 g/dL LAB CHEMISTRY METHOD 12/28/2024 10:57 AM [facility] Total Bilirubin 0.3 0.0 - 1.4 mg/dL LAB CHEMISTRY METHOD 12/28/2024 10:57 AM [facility] Blood Venous blood specimen / Unknown Venipuncture / Unknown 12/28/2024 7:43 AM EST 12/28/2024 10:11 AM EST us Ailyn Stringer MD LAB BLOOD ORDERABLES Fin al Result [facility] [address] [place] [address], * Complete blood count (12/28/2024 7:43 AM EST) WBC 6.7 4.8 - 10.8 K/mcL LAB HEMETOLOGY METHOD 12/28/2024 10:39 AM [facility] RBC 4.60 4.50 - 5.50 M/mcL LAB HEMETOLOGY METHOD 12/28/2024 10:39 AM [facility] Hemoglobin 14.7 13.5 - 17.5 g/dL LAB HEMETOLOGY METHOD 12/28/2024 10:39 AM [facility] Hematocrit 44.5 42.0 - 54.0 % LAB HEMETOLOGY METHOD 12/28/2024 10:39 AM [facility] MCV 96.7 79.0 - 98.0 FL LAB HEMETOLOGY METHOD 12/28/2024 10:39 AM EST [facility] MCH 32.0 27.0 - 32.0 pcg LAB HEMETOLOGY METHOD 12/28/2024 10:39 AM [facility] MCHC 33.0 32.0 - 37.0 g/dL LAB HEMETOLOGY METHOD 12/28/2024 10:39 AM [facility] RDW 12.4 11.0 - 15.0 % LAB HEMETOLOGY METHOD 12/28/2024 10:39 AM [facility] Platelets 263 130 - 400 K/mcL LAB HEMETOLOGY METHOD 12/28/2024 10:39 AM [facility] MPV 10.7 7.0 - 11.0 FL LAB HEMETOLOGY METHOD 12/28/2024 10:39 AM [facility] NRBC 0.0 <1.0 % LAB HEMETOLOGY METHOD 12/28/2024 10:39 AM [facility] NRBC Absolute 0.00 <0.10 K/mcL LAB HEMETOLOGY METHOD 12/28/2024 10:39 AM [facility] Blood Venous blood specimen / Unknown Venipuncture / Unknown 12/28/2024 7:43 AM EST 12/28/2024 10:11 AM EST us Ailyn Stringer MD LAB BLOOD ORDERABLES Fin al Result [facility] [address] [place] [address], documented in this encounter Visit Diagnoses Diagnosis Malignant neoplasm of brain, unspecified (CMS/HCC V24, CMS/HCC V28) Other seizures (CMS/HCC V24, CMS/HCC V28) documented in this encounter Care Teams Diecast Machine Operator Relationship Specialty Start Date End Date Physician, No Pcp PCP - General 11/05/24 documented as of this encounter
--- OUTSIDE RECORDS SUMMARY | 2025-07-28 22:22 | XMS_ITS | Encounter Summary ---
Author Organization [facility] Address [address] [place] [address] Care Team Providers Care Radio Repair Teacher Name Role Phone Physician, No Pcp Primary Care Provider Unavaila ble Encounter Details Date Type Department Care Team (Late st Contact Info) Description 03/28/[address] [facility] - Main Lab [address] [facility] [place] [address] Ailyn Stringer MD [address] [phone] Malignant neoplasm of brain, unspecified (CMS/HCC V24, [...] Associated Diagnosis Comments COMPLETE BLOOD COUNT Routine 03/29/2025 7:15 AM EDT Malignant neoplasm of brain, unspecified ([facility]/HCC V24, [facility] V28) COMPREHENSIVE METABOLIC PANEL Routine 03/29/2025 7:15 AM EDT Malignant neoplasm of brain, unspecified ([facility]/HCC V24, [facility]/HCC V28) documented in this encounter Results * (ABNORMAL) Comprehensive metabolic panel (03/29/2025 7:15 AM EDT) Sodium 137 133 - 145 mmol/L LAB CHEMISTRY METHOD 03/29/2025 1:53 PM [facility] Potassium 3.9 3.5 - 5.5 mmol/L LAB CHEMISTRY METHOD 03/29/2025 1:53 PM [facility] Chloride 103 96 - 110 mmol/L LAB CHEMISTRY METHOD 03/29/2025 1:53 PM [facility] CO2 25 21 - 32 mmol/L LAB CHEMISTRY METHOD 03/29/2025 1:53 PM [facility] Anion Gap 9 3 - 11 LAB CHEMISTRY METHOD 03/29/2025 1:53 PM [facility] Glucose 137(H) 70 - 100 mg/dL LAB CHEMISTRY METHOD 03/29/2025 1:53 PM [facility] BUN 11 5 - 25 mg/dL LAB CHEMISTRY METHOD 03/29/2025 1:53 PM [facility] Creatinine 0.69(L) 0.70 - 1.30 mg/dL LAB CHEMISTRY METHOD 03/29/2025 1:53 PM [facility] LAB eGFR 107 >=60 mL/min/1. 73m2 LAB CHEMISTRY METHOD 03/29/2025 1:53 PM [facility] LAB Comment:Calculation based on the Chronic Kidney Disease Epidemiology Collaboration (CKD-EPI) equation refit without adjustment for race. BUN/Creatinine Ratio 15.9 LAB CHEMISTRY METHOD 03/29/2025 1:53 PM [facility] Calcium 8.9 8.5 - 10.5 mg/dL LAB CHEMISTRY METHOD 03/29/2025 1:53 PM [facility] AST (SGOT) 18 10 - 42 unit/L LAB CHEMISTRY METHOD 03/29/2025 1:53 PM [facility] ALT (SGPT) 49 10 - 60 unit/L LAB CHEMISTRY METHOD 03/29/2025 1:53 PM [facility] Alkaline Phosphatase 145(H) 42 - 121 unit/L LAB CHEMISTRY METHOD 03/29/2025 1:53 PM [facility] Total Protein 7.0 6.0 - 8.0 g/dL LAB CHEMISTRY METHOD 03/29/2025 1:53 PM [facility] Albumin 3.7 3.2 - 5.0 g/dL LAB CHEMISTRY METHOD 03/29/2025 1:53 PM [facility] Total Bilirubin 0.2 0.0 - 1.4 mg/dL LAB CHEMISTRY METHOD 03/29/2025 1:53 PM [facility] Blood Venous blood specimen / Unknown Venipuncture / Unknown 03/29/2025 7:15 AM EDT 03/29/2025 12:30 PM EDT us Ailyn Stringer MD LAB BLOOD ORDERABLES Fin al Result [facility] LAB [address] [place] [address], * Complete blood count (03/29/2025 7:15 AM EDT) [facility] WBC 7.1 4.8 - 10.8 K/mcL LAB HEMETOLOGY METHOD 03/29/2025 2:36 PM EDT [facility] LAB RBC 4.90 4.50 - 5.50 M/mcL LAB HEMETOLOGY METHOD 03/29/2025 2:36 PM EDT [facility] LAB Hemoglobin 15.4 13.5 - 17.5 g/dL LAB HEMETOLOGY METHOD 03/29/2025 2:36 PM EDT [facility] LAB Hematocrit 46.9 42.0 - 54.0 % LAB HEMETOLOGY METHOD 03/29/2025 2:36 PM EDT [facility] LAB MCV 96.1 79.0 - 98.0 FL LAB HEMETOLOGY METHOD 03/29/2025 2:36 PM EDT [facility] LAB MCH 31.6 27.0 - 32.0 pcg LAB HEMETOLOGY METHOD 03/29/2025 2:36 PM EDT [facility] LAB MCHC 32.8 32.0 - 37.0 g/dL LAB HEMETOLOGY METHOD 03/29/2025 2:36 PM EDT [facility] LAB RDW 12.8 11.0 - 15.0 % LAB HEMETOLOGY METHOD 03/29/2025 2:36 PM EDT [facility] LAB Platelets 271 130 - 400 K/mcL LAB HEMETOLOGY METHOD 03/29/2025 2:36 PM EDT [facility] LAB MPV 10.9 7.0 - 11.0 FL LAB HEMETOLOGY METHOD 03/29/2025 2:36 PM EDT [facility] NRBC 0.0 <1.0 % [facility] METHOD 03/29/2025 2:36 PM EDT [facility] LAB NRBC Absolute 0.00 <0.10 K/mcL LAB [facility] METHOD 03/29/2025 2:36 PM EDT [facility] LAB Blood Venous blood specimen / Unknown Venipuncture / Unknown 03/29/2025 7:15 AM EDT 03/29/2025 12:32 PM EDT us Ailyn Stringer MD LAB BLOOD ORDERABLES Fin al Result [facility] LAB [address] [place] [address], documented in this encounter Visit Diagnoses Diagnosis Malignant neoplasm of brain, unspecified (CMS/HCC V24, CMS/HCC V28) documented in this encounter Care Teams Radio Repair Teacher Relationship Specialty Start Date End Date Physician, No Pcp PCP - General 11/05/24 documented as of this encounter
--- OUTSIDE RECORDS SUMMARY | 2025-07-28 22:22 | XMS_ITS | Encounter Summary ---
Author Organization [facility] Address [address] [place] [address] Care Team Providers Care Lead Pressman Name Role Phone Physician, No Pcp Primary Care Provider Unavaila ble Encounter Details Date Type Department Care Team (Late st Contact Info) Description 04/11/2025 Lab Requisition [facility] - Main Lab [address] [facility] [place] [address] Ailyn Stringer MD [address] [phone] Malignant neoplasm of brain, unspecified (CMS/HCC V24, [...] Associated Diagnosis Comments COMPLETE BLOOD COUNT Routine 04/12/2025 5:46 AM EDT Malignant neoplasm of brain, unspecified ([facility]/HCC V24, [facility]/HCC V28) COMPREHENSIVE METABOLIC PANEL Routine 04/12/2025 5:40 AM EDT Malignant neoplasm of brain, unspecified ([facility]/HCC V24, CMS/HCC V28) documented in this encounter Results * Complete blood count (04/12/2025 5:46 AM EDT) [facility] WBC 8.3 4.8 - 10.8 K/mcL LAB HEMETOLOGY METHOD 04/12/2025 11:01 AM [facility] LAB RBC 4.60 4.50 - 5.50 M/mcL LAB HEMETOLOGY METHOD 04/12/2025 11:01 AM [facility] LAB Hemoglobin 14.3 13.5 - 17.5 g/dL LAB HEMETOLOGY METHOD 04/12/2025 11:01 AM [facility] LAB Hematocrit 43.5 42.0 - 54.0 % LAB HEMETOLOGY METHOD 04/12/2025 11:01 AM [facility] LAB MCV 94.2 79.0 - 98.0 FL LAB HEMETOLOGY METHOD 04/12/2025 11:01 AM EDT [facility] LAB MCH 31.0 27.0 - 32.0 pcg LAB HEMETOLOGY METHOD 04/12/2025 11:01 AM [facility] LAB MCHC 32.9 32.0 - 37.0 g/dL LAB HEMETOLOGY METHOD 04/12/2025 11:01 AM EDT [facility] LAB RDW 13.0 11.0 - 15.0 % LAB HEMETOLOGY METHOD 04/12/2025 11:01 AM [facility] LAB Platelets 295 130 - 400 K/mcL LAB HEMETOLOGY METHOD 04/12/2025 11:01 AM [facility] LAB MPV 11.0 7.0 - 11.0 FL LAB [facility] 0.0 <1.0 % LAB HEMETOLOGY METHOD 04/12/2025 11:01 AM [facility] LAB NRBC Absolute 0.00 <0.10 K/mcL LAB HEMETOLOGY METHOD 04/12/2025 11:01 AM [facility] LAB Blood Venous blood specimen / Unknown Venipuncture / Unknown 04/12/2025 5:46 AM EDT 04/12/2025 10:14 AM EDT us Ailyn Stringer MD LAB BLOOD ORDERABLES Fin al Result [facility] LAB [address] [place] [address], * (ABNORMAL) Comprehensive metabolic panel (04/12/2025 5:40 AM EDT) Sodium 138 133 - 145 mmol/L LAB CHEMISTRY METHOD 04/12/2025 11:52 AM EDT [facility] LAB Potassium 4.3 3.5 - 5.5 mmol/L LAB CHEMISTRY METHOD 04/12/2025 11:52 AM [facility] Chloride 109 96 - 110 mmol/L LAB CHEMISTRY METHOD 04/12/2025 11:52 AM [facility] CO2 21 21 - 32 mmol/L LAB CHEMISTRY METHOD 04/12/2025 11:52 AM [facility] Anion Gap 8 3 - 11 LAB CHEMISTRY METHOD 04/12/2025 11:52 AM [facility] LAB Glucose 106(H) 70 - 100 mg/dL LAB CHEMISTRY METHOD 04/12/2025 11:52 AM [facility] BUN 12 5 - 25 mg/dL LAB CHEMISTRY METHOD 04/12/2025 11:52 AM [facility] LAB Creatinine 0.62(L) 0.70 - 1.30 mg/dL LAB CHEMISTRY METHOD 04/12/2025 11:52 AM [facility] LAB eGFR 110 >=60 mL/min/1. 73m2 LAB CHEMISTRY METHOD 04/12/2025 11:52 AM [facility] LAB Comment:Calculation based on the Chronic Kidney Disease Epidemiology Collaboration (CKD-EPI) equation refit without adjustment for race. BUN/Creatinine Ratio 19.4 LAB CHEMISTRY METHOD 04/12/2025 11:52 AM [facility] LAB Calcium 8.7 8.5 - 10.5 mg/dL LAB CHEMISTRY METHOD 04/12/2025 11:52 AM [facility] LAB AST (SGOT) 17 10 - 42 unit/L LAB CHEMISTRY METHOD 04/12/2025 11:52 AM [facility] ALT (SGPT) 40 10 - 60 unit/L LAB CHEMISTRY METHOD 04/12/2025 11:52 AM [facility] LAB Alkaline Phosphatase 139(H) 42 - 121 unit/L LAB CHEMISTRY METHOD 04/12/2025 11:52 AM [facility] LAB Total Protein 6.6 6.0 - 8.0 g/dL LAB CHEMISTRY METHOD 04/12/2025 11:52 AM EDT [facility] LAB Albumin 3.4 3.2 - 5.0 g/dL LAB CHEMISTRY METHOD 04/12/2025 11:52 AM EDT [facility] Total Bilirubin 0.2 0.0 - 1.4 mg/dL LAB CHEMISTRY METHOD 04/12/2025 11:52 AM EDT [facility] LAB Blood Venous blood specimen / Unknown Venipuncture / Unknown 04/12/2025 5:40 AM EDT 04/12/2025 10:24 AM EDT us Ailyn Stringer MD LAB BLOOD ORDERABLES Fin al Result [facility] [address] [place] [address], documented in this encounter Visit Diagnoses Diagnosis Malignant neoplasm of brain, unspecified (CMS/HCC V24, CMS/HCC V28) documented in this encounter Care Teams Lead Pressman Relationship Specialty Start Date End Date Physician, No Pcp PCP - General 11/05/24 documented as of this encounter
[2025-07-28 22:27] LABS: Appearance Urine Clear; Glucose Urine UA Negative (Negative); PH 6.0 (5.0-9.0); Specific Gravity - Urine <= 1.005 (1.005-1.025)
[2025-07-28 22:37] LABS: Cannabinoid Screen Urine Not Detected (Not Detect)
--- NOTE | 2025-07-28 22:39 | ED_ITS ---
HPI - Fall General Chief Complaint: Fall Stated Complaint: B/L LE PAIN, ETOH Time Seen by Provider: 07/28/25 22:34 Source: patient and EMS Mode of arrival: EMS Limitations: no limitations History of Present Illness ED Provider: Chase RYDER HPI Narrative: The patient is a 60-year-old male presenting to the ED via EMS after he suffered a fall from a scooter which was witnessed by a neighbor who activated 911. The patient reports he has been experiencing multiple recent falls from his scooter as he has been experiencing worsening bilateral lower extremity swelling, pain, and weakness secondary to pain since he was discharged from [facility] rehab Services in October. The patient admits he does not regularly follow with a physician, also admits to 1 pack per day smoking history most of his life, and drinks daily, admits to drinking today. Patient denies any active recreational drug use but does report a history of previous cocaine use. The patient reports remote history of meningiomas with previous resection 20 years ago, reports history of seizures. The patient reports he suffers from seizure activity on a nightly basis, however denies ever requiring 911 activation, hospitalization, or medication to abort seizures. The patient reports he knows he had a seizure when he feels tired and then jerks awake from asleep. The patient denies any acute somatic complaint secondary to his fall today, but does report chronic pain in the epigastrium, as well as the previously stated bilateral lower extremity edema now with weakness secondary to pain. Related Data Home Medications ?Medication ?Instructions ?Recorded ?Confirmed apixaban 5 mg tablet (Eliquis) 5 mg PO BID 12/26/24 duloxetine 20 mg capsule,delayed 20 mg PO BID 12/26/24 12/26/24 release trazodone 50 mg tablet 25 mg PO BEDTIME 12/26/24 primidone 50 mg tablet 50 mg PO DAILY 07/29/25 Previous Rx's ?Medication ?Instructions ?Recorded carbamazepine 200 mg tablet 600 mg (3 x 200 mg) PO BID 90 days 07/27/25 #540 tabs levetiracetam 750 mg tablet 1,500 mg (2 x 750 mg) PO B ID 90 07/27/25 days #360 tabs phenytoin sodium extended 100 mg 400 mg (4 x 100 mg) P O BID 90 days 07/27/25 capsule #720 caps albuterol sulfate 90 mcg/actuation 1 inh inhalation Q6 H PRN shortness 08/01/25 aerosol inhaler (Ventolin HFA) of breath or wheezing # 8.5 grams fluticasone furoate 50 1 inh inhalation DAILY Undia gnosed 08/01/25 mcg-vilanterol 25 mcg/dose COPD #60 ea inhalation powder (Breo Ellipta) folic acid 1 mg tablet 1 mg PO DAILY Alcohol use di sorder 08/01/25 30 days #30 tabs gabapentin 100 mg capsule 100 mg PO TID 30 days #0 cap s 08/01/25 nicotine 21 mg/24 hr daily 21 mg transdermal DAILY 30 days 08/01/25 transdermal patch #30 ea prednisone 20 mg tablet 40 mg (2 x 20 mg) PO DAILY 3 0 days 08/01/25 #60 tabs thiamine mononitrate (vit B1) 100 100 mg PO DAILY 30 d ays #30 tabs 08/01/25 mg tablet ipratropium 0.5 mg-albuterol 3 mg 3 ml inhalation Q8H PRN sob/nguyen 08/02/25 (2.5 mg base)/3 mL nebulization #180 mL soln naltrexone 50 mg tablet 50 mg PO DAILY #30 tabs 07/13 01/05 Allergies Allergy/AdvReac Type Severity Reaction Status Date / Time No Known Allergies Allergy Verified 07/28/25 21:34 Review of Systems 2 Review of Systems: Yes all other systems are reviewed and are negative PMFSH Past Medical History Medical History DVT (deep venous thrombosis) Major depressive disorder Epilepsy Alcohol abuse Social History Social History Household Members: Family Housing: Other Do you presently have visiting nurse or other home services: No Alcohol intake: current Alcohol intake frequency: 3 or more drinks per day Alcohol type: hard liquor Patient Tobacco Use Status: Current everyday Tobacco user Tobacco use type: Cigarette Cigarettes Per Day: 10 e-Cigarette/Vaping Use: Never Used Second Hand Smoke Exposure: Yes Advance Directives Date on File: 12/29/24 service: No Physical Exam 2 Vital Signs: Vital Signs: Last Vital Signs Temp 97.2 F 08/01/25 12:00 Pulse 73 08/01/25 12:00 Resp 16 08/01/25 12:00 BP 134/67 08/01/25 12:00 Pulse Ox 97 08/01/25 12:00 O2 Del Method Room Air 08/01/25 12:00 O2 Flow Rate 3 07/29/25 04:44 BMI result Body Mass Index 39.5 CONSTITUTIONAL: The patient appears clinically intoxicated, odor of EtOH metabolites on breath, otherwise non-toxic, well nourished and in no acute distress. Vital signs as documented. HEAD: Atraumatic, normocephalic. EYES: EOMs grossly intact, pupils equal, conjunctiva clear, no exudate. ENT: Nares patent, no discharge. Airway patent, no audible stridor, visible mucosa is pink and moist without noted lesions. NECK: Trachea is midline, no obvious masses or gross abnormalities. CHEST: Symmetric movement, normal appearance. LUNGS: LS present , with moderate expiratory wheezing bilaterally throughout, no rales or rhonchi. Non-labored work of breathing. CARDIAC: Regular Rhythm, S1/S2 appreciated, no murmurs, rubs or gallops. ABDOMEN: Abdomen soft x4 quadrants, positive tenderness to palpation of the abdomen throughout, with a distention. no palpable masses or organomegaly. : Deferred. EXTREMITIES: Normal tone, moves all extremities spontaneously without reported pain. There is 2+ bilateral pitting edema with diffuse erythema without localized or well demarcated erythema. No obvious acute injury or deformity noted. NEURO: Alert and oriented x3, CN II-XII appear grossly intact. Cerebellar Functioning grossly intact. No obvious sensory or motor deficits. Speech clear and appropriate. PSYCH: normal affect, appropriate eye contact, fluid speech, with appropriate response to questioning. No reported suicidality or homicidality. SKIN: Warm, dry, color appropriate, normal turgor. No rashes noted. Medications Administered Discontinued Medications Generic Name Dose Route Start Last Admin Trade Name Freq PRN Reason Stop Dose Admin Acetaminophen 650 mg 07/29/25 08:02 08/01/25 08:21 Acetaminophen 325 Mg Tablet PO 650 mg Q6H PRN Administration Pain, Mild 1-3,fever,headache Albuterol/Ipratropium 3 ml 07/29/25 08:02 07/31/25 20:56 Albuterol/Iprat 2.5/0.5mg 3 Ml Ampul.Neb INHALE 3 ml Q4H PRN Administration Shortness of Breath/Wheezing Calcium Carbonate 750 mg 07/29/25 08:02 07/31/25 19:44 Calcium Carbonate 750 Mg Tab.Chew PO 750 mg Q4H PRN Administration Heartburn Albuterol Sulfate 5 mg/ 0 mg 07/28/25 23:14 07/28/25 23:16 Albuterol/Ipratropium 3 ml INHALE 07/28/25 23:15 1 each ONCE ONE Administration Enoxaparin Sodium 40 mg 07/29/25 09:00 08/01/25 08:23 Enoxaparin Sodium 40 Mg/0.4 Ml Syringe SUBCUT 40 mg Q24H OTONIEL Administration Folic Acid 1 mg 07/29/25 09:00 08/01/25 08:21 Folic Acid 1 Mg Tablet PO 1 mg DAILY OTONIEL Administration Gabapentin 100 mg 07/31/25 21:00 08/01/25 08:21 Gabapentin 100 Mg Capsule PO 100 mg TID OTONIEL Administration Potassium Chloride 10 meq in 100 mls @ 100 mls/hr 07/29/25 02:45 07/29/25 09:10 Potassium Chloride/H20 IV 07/29/25 06:44 Infused Q1H OTONIEL Infusion Iohexol 100 ml 07/29/25 01:34 07/29/25 01:35 Iohexol 350 Mg/Ml 100 Ml Infus..Btl IV 07/29/25 01:35 100 ml ONCE ONE Administration Levetiracetam 1,500 mg 07/29/25 21:00 08/01/25 08:22 Levetiracetam 1,000 Mg Tablet PO 1,500 mg BID OTONIEL Administration Melatonin 6 mg 07/29/25 08:02 07/30/25 20:48 Melatonin 3 Mg Tablet PO 6 mg BEDTIME PRN Administration Insomnia Methylprednisolone Sodium Succinate 125 mg 07/28/25 22:56 07/28/25 23:27 Methylprednisolone Sod Succ 125 Mg/2 Ml Vial IVPUSH 07/28/25 22:57 125 mg ONCE ONE Administration Methylprednisolone Sodium Succinate 40 mg 07/29/25 08:15 07/31/25 08:13 Methylprednisolone Sod Succ 40 Mg/Ml Vial IVPUSH 40 mg Q12H OTONIEL Administration Methylprednisolone Sodium Succinate 40 mg 08/01/25 09:00 08/01/25 08:22 Methylprednisolone Sod Succ 40 Mg/Ml Vial IVPUSH 40 mg DAILY OTONIEL Administration Nicotine 21 mg 07/29/25 08:10 08/01/25 08:22 Nicotine 21 Mg Patch.Td24 TRANSDERMA 21 mg DAILY OTONIEL Administration Oxycodone HCl 5 mg 07/30/25 20:42 07/31/25 04:40 Oxycodone Hcl Immed Release 5 Mg Tablet PO 5 mg Q6H PRN Administration genralized pain Pantoprazole Sodium 40 mg 07/31/25 08:44 07/31/25 10:15 Pantoprazole Sodium 40 Mg/10 Ml Vial IVPUSH 07/31/25 08:45 40 mg ONCE ONE Administration Pantoprazole Sodium 40 mg 08/01/25 06:30 08/01/25 06:10 Pantoprazole Sodium 40 Mg/10 Ml Vial IVPUSH 40 mg DAILY@0630 OTONIEL Administration Phenobarbital 45 mg 07/29/25 21:00 07/31/25 08:13 Phenobarbital 15 Mg Tablet PO 07/31/25 09:01 45 mg BID OTONIEL Administration Protocol Phenobarbital 30 mg 07/31/25 21:00 08/01/25 08:21 Phenobarbital 30 Mg Tablet PO 08/02/25 09:01 30 mg BID OTONIEL Administration Protocol Phenobarbital Sodium 292 mg 07/29/25 07:00 07/29/25 06:43 Phenobarbital Sodium 130 Mg/Ml Im Once IM 07/29/25 07:01 292 mg ONCE ONE Administration Protocol Phenobarbital Sodium 221 mg 07/29/25 10:00 07/29/25 14:05 Phenobarbital Sodium 130 Mg/Ml Vial Im Q3hx2 IM 07/29/25 13:01 221 mg Q3H OTONIEL Administration Protocol Phenytoin Sodium 400 mg 08/01/25 12:41 08/01/25 12:56 Phenytoin Sodium Extended 100 Mg Capsule PO 400 mg BID OTONIEL Administration Potassium Chloride 40 meq 07/28/25 22:40 07/28/25 22:56 Potassium Chloride Er 20 Meq Tab.Er.Prt PO 07/28/25 22:41 40 meq ONCE ONE Administration Prednisone 40 mg 08/01/25 09:00 08/01/25 08:36 Prednisone 20 Mg Tablet PO 08/06/25 08:59 Not Given DAILY OTONIEL Sodium Chloride 3 ml 07/29/25 16:00 08/01/25 08:32 0.9 % Sodium Chloride Flush 3 Ml Syringe IVFLUSH 3 ml QSHIFT OTONIEL Administration Thiamine HCl 100 mg 07/29/25 09:00 08/01/25 08:21 Thiamine Hcl 100 Mg Tablet PO 100 mg DAILY OTONIEL Administration Trazodone HCl 50 mg 07/31/25 21:00 07/31/25 19:44 Trazodone Hcl 50 Mg Tablet PO 50 mg BEDTIME TOONIEL Administration Medical Decision Making Medical Decision Making [facility] Narrative: 11:57 PM 07/28/2025 (Honorio RYDER): The patient is a 60-year-old male presenting to the ED via EMS after he suffered a fall from a scooter which was witnessed by a neighbor who activated 911. The patient reports he has been experiencing multiple recent falls from his scooter as he has been experiencing worsening bilateral lower extremity swelling, pain, and weakness secondary to pain since he was discharged from [facility] rehab Services in October. The patient admits he does not regularly follow with a physician, also admits to 1 pack per day smoking history most of his life, and drinks daily, admits to drinking today. Patient denies any active recreational drug use but does report a history of previous cocaine use. The patient reports remote history of meningiomas with previous resection 20 years ago, reports history of seizures. The patient reports he suffers from seizure activity on a nightly basis, however denies ever requiring 911 activation, hospitalization, or medication to abort seizures. The patient reports he knows he had a seizure when he feels tired and then jerks awake from asleep. The patient denies any acute somatic complaint secondary to his fall today, but does report chronic pain in the epigastrium, as well as the previously stated bilateral lower extremity edema now with weakness secondary to pain. The patient is clinically intoxicated on exam, odor of EtOH metabolites on breath. The patient's lung sounds demonstrate moderate expiratory wheezing, no rales or rhonchi. The patient's abdominal exam reveals tenderness of the abdomen throughout, with distention. Bilateral lower extremities show 2+ bilateral pitting edema with diffuse erythema, no localized or well demarcated erythema. The patient's EKG is nonischemic, troponin is negative, BNP is normal, chest x-ray shows no focal consolidation. The patient's laboratory evaluation shows no leukocytosis or anemia. There is no evidence of CHRISTOPHER however there is significant hypokalemia at 2.9. Magnesium, prolactin, and LFTs are pending. Urinalysis shows no abnormalities. UDS is negative. Alcohol level is 330. Patient's swelling is likely secondary to peripheral vascular disease secondary to tobacco dependency, compounded by alcohol dependency with possible cirrhosis. Due to the unwitnessed fall and patient's abdominal tenderness the patient will be further evaluated with CT of the head and CT with contrast of the abdomen and pelvis. 2:36 AM 07/29/2025 (Honorio RYDER): The patient's CT neck shows no acute fracture. CT abdomen and pelvis shows severe hepatic steatosis and diverticulosis without evidence of diverticulitis, no acute findings. The patient's CT head shows interval increase in size of 3 masses at the previous left frontal craniotomy compared to previous imaging in December of this year. One mass increased from 8 mm to 1.4 cm, another from 1.2 cm to 1.4 cm, and a 3rd increased from 1.3 cm to 2.3 cm. It is unclear if the patient's recent increasing frequency of falls is secondary to the interval increase in masses versus daily alcohol use, or a combination of both. We will continue to monitor the patient to clinical sobriety and reassess unsteadiness of gait, if unable to ambulate with steady gait the patient will be held for case management and physical therapy consultation. Patient was initially treated with oral potassium, however due to the severity of hypokalemia and history of alcoholism, we will also replete potassium with 40 mEq IV. Magnesium has resulted and is normal. 4:54 AM 07/29/2025 (Honorio RYDER): Additional chart review reveals patient was admitted at this facility in December of this year for similar presentation of recurrent falls. Patient was found to have Dilantin toxicity and underwent MRI which demonstrated 3 new enhancing extra-axial masses long of left front dura, with cystic encephalomalacia and gliosis which was only slightly increased compared to 2012 study. Neurology consultation identified the cranial masses as likely recurrent meningioma of the same area as previous resection, slow growing. Recommendation for MRI follow up in 12 months. The patient was continued on gabapentin, carbamazepine, and Keppra, but Dilantin was held until Dilantin level reached to 15. In light of this history we will obtain a Dilantin level this evening to assess for recurrent Dilantin toxicity. Additionally, patient does not use oxygen at home but was noted to have a low oxygen by EMS and placed on FiO2. The patient has received nebulizer and Solu- Medrol while in the ED. Tt this time we have discussed workup with the patient, we will attempt ambulation on room air. In the setting of increasing size of meningiomas, hypokalemia, acute on chronic bronchitis, and more frequent falls, if patient does not ambulate with a steady gait, experiences tachycardia or desaturation with ambulation, or is found to have Dilantin toxicity, patient will be admitted rather than kept for case management consultation. 5:31 AM 07/29/2025 (Honorio RYDER): The patient did not desaturate but did become tachycardic in the 120s with subjective dyspnea when walking just 10-12 feet. Patient will be admitted for acute on chronic bronchitis, hypokalemia, frequent falls, difficulty walking, and interval increase in size of meningiomas. Admission/Observation Consideration of admission/observation: Escalation of care including admission/observation considered Lab Data MDM Lab Attestation statement: I reviewed the patient's lab results. 07/29/25 07:31 07/30/25 05:50 Labs: Lab Results 07/28/25 07/28/25 07/28/25 Range/Units 21:41 22:17 23:44 WBC 5.6 (4.8-10.8) X10*3/uL RBC 4.67 (4.60-5.80) X10*6/uL Hgb 15.6 (14.0-18.0) g/dl Hct 43.1 (42.0-52.0) % MCV 92.3 (80.0-98.0) fL MCH 33.4 H (27.0-33.0) pg MCHC 36.2 H (31.0-36.0) g/dl RDW 14.2 (11.0-16.0) % Plt Count 218 (160-400) X10*3/uL MPV 10.1 (9.4-12.4) fL Immature Gran % (Auto) 0.4 (0.0-0.4) % Neut % (Auto) 38.9 L (45-73) % Lymph % (Auto) 46.5 H (20-40) % [place] % (Auto) 10.6 (2-11) % Eos % (Auto) 2.7 (0-4) % Baso % (Auto) 0.9 (0-2) % Lymph # (Auto) 2.6 (1.2-4.9) X10*3/uL [place] # (Auto) 0.6 (0.1-1.2) X10*3/uL Eos # (Auto) 0.2 (0.0-0.4) X10*3/uL Baso # (Auto) 0.1 (0.0-0.2) X10*3/uL Abs Immat Gran (auto) 0.02 (0.00-0.03) X10*3/uL Absolute Neuts (auto) 2.2 (2.0-8.3) x10*3/uL Absolute Nucleated RBC 0.000 (0.0-0.012) X10*3/uL Nucleated RBC % (auto) 0.0 (0.0-0.2) /100WBC Sodium 144 (135-145) mmol/L Potassium 2.9 L* D (3.3-5.1) mmol/L Chloride 106 (96-108) mmol/L Carbon Dioxide 22 (22-29) mmol/L Anion Gap 19 (12-20) BUN 7 L (9-16) mg/dL Creatinine 0.73 (0.5-1.4) mg/dL Estim Creat Clear Calc 144.3 Estimated GFR > 60 Random Glucose 163 H (60-115) mg/dL Calcium 8.4 (8.4-10.2) mg/dL Magnesium 1.9 (1.6-2.6) mg/dL Total Bilirubin 0.3 (0.0-1.0) mg/dL Direct Bilirubin 0.2 (0.0-0.5) mg/dL AST 97 H (5-37) U/L ALT 131 H (0-40) U/L Alkaline Phosphatase 160 H (39-117) U/L Troponin I High Sens 8.5 D (<3.5-35.0) ng/L B-Natriuretic Peptide 16 (<100) pg/mL Total Protein 6.5 (6.5-8.0) g/dL Albumin 4.0 (3.5-5.0) g/dL Prolactin 3.9 (2.0-18.0) ng/mL Urine Color Yellow Urine Appearance Clear Urine pH 6.0 (5.0-9.0) Ur Specific [place] <= 1.005 (1.005-1.025) Urine Protein Negative (Neg-Trace) mg/dL Urine Glucose (UA) Negative (Negative) mg/dL Urine Ketones Negative (Negative) mg/dL Urine Blood Negative (Negative) Urine Nitrite Negative (Negative) Ur Leukocyte Esterase Negative (Negative) Urine Opiates Screen Not Detected (Not Detect) Ur Buprenorphine Scrn Not Detected (Not Detect) ng/mL Ur Oxycodone Screen Not Detected (Not Detect) ng/mL Urine Methadone Screen Not Detected (Not Detect) ng/mL Urine Fentanyl Screen Not Detected (Not Detect) Ur Barbiturates Screen Not Detected (Not Detect) Phenytoin (10.0-20.0) ug/mL Ur Phencyclidine Scrn Not Detected (Not Detect) Ur Amphetamines Screen Not Detected (Not Detect) U Benzodiazepines Scrn Not Detected (Not Detect) Urine Cocaine Screen Not Detected (Not Detect) U Marijuana (THC) Screen Not Detected (Not Detect) Ethyl Alcohol 330 H* mg/dL 07/29/25 Range/Units 05:11 WBC (4.8-10.8) X10*3/uL RBC (4.60-5.80) X10*6/uL Hgb (14.0-18.0) g/dl Hct (42.0-52.0) % MCV (80.0-98.0) fL MCH (27.0-33.0) pg MCHC (31.0-36.0) g/dl RDW (11.0-16.0) % Plt Count (160-400) X10*3/uL MPV (9.4-12.4) fL Immature Gran % (Auto) (0.0-0.4) % Neut % (Auto) (45-73) % Lymph % (Auto) (20-40) % [place] % (Auto) (2-11) % Eos % (Auto) (0-4) % Baso % (Auto) (0-2) % Lymph # (Auto) (1.2-4.9) X10*3/uL [place] # (Auto) (0.1-1.2) X10*3/uL Eos # (Auto) (0.0-0.4) X10*3/uL Baso # (Auto) (0.0-0.2) X10*3/uL Abs Immat Gran (auto) (0.00-0.03) X10*3/uL Absolute Neuts (auto) (2.0-8.3) x10*3/uL Absolute Nucleated RBC (0.0-0.012) X10*3/uL Nucleated RBC % (auto) (0.0-0.2) /100WBC Sodium (135-145) mmol/L Potassium (3.3-5.1) mmol/L Chloride (96-108) mmol/L Carbon Dioxide (22-29) mmol/L Anion Gap (12-20) BUN (9-16) mg/dL Creatinine (0.5-1.4) mg/dL Estim Creat Clear Calc Estimated GFR Random Glucose (60-115) mg/dL Calcium (8.4-10.2) mg/dL Magnesium (1.6-2.6) mg/dL Total Bilirubin (0.0-1.0) mg/dL Direct Bilirubin (0.0-0.5) mg/dL AST (5-37) U/L ALT (0-40) U/L Alkaline Phosphatase (39-117) U/L Troponin I High Sens (<3.5-35.0) ng/L B-Natriuretic Peptide (<100) pg/mL Total Protein (6.5-8.0) g/dL Albumin (3.5-5.0) g/dL Prolactin (2.0-18.0) ng/mL Urine Color Urine Appearance Urine pH (5.0-9.0) Ur Specific [place] (1.005-1.025) Urine Protein (Neg-Trace) mg/dL Urine Glucose (UA) (Negative) mg/dL Urine Ketones (Negative) mg/dL Urine Blood (Negative) Urine Nitrite (Negative) Ur Leukocyte Esterase (Negative) Urine Opiates Screen (Not Detect) Ur Buprenorphine Scrn (Not Detect) ng/mL Ur Oxycodone Screen (Not Detect) ng/mL Urine Methadone Screen (Not Detect) ng/mL Urine Fentanyl Screen (Not Detect) Ur Barbiturates Screen (Not Detect) Phenytoin < 1.8 L* (10.0-20.0) ug/mL Ur Phencyclidine Scrn (Not Detect) Ur Amphetamines Screen (Not Detect) U Benzodiazepines Scrn (Not Detect) Urine Cocaine Screen (Not Detect) U Marijuana (THC) Screen (Not Detect) Ethyl Alcohol mg/dL Independent Interpretation I performed an independent interpretation of an: EKG (EKG shows sinus tachycardia with a rate of 106, with left axis deviation and incomplete right bundle-branch block. No evidence of acute ischemia, no ST elevation, no ectopy. QTC 446. Compared to previous on 03/09/2019 there are no significant morphology changes. ) Interpretation: Most recent EKG on 12/26/2024 demonstrates severe artifact, EKG from 03/09/2019 is used for comparison and there are no significant morphology changes. Radiology Impression Discussion of test interpretation with radiology: I have reviewed the radiologist's reading. Radiologist Impression: 2 view chest x-ray Comparison: None provided Findings: No consolidation or effusion. Heart size is normal. Old left distal clavicle fracture. Partial ossification of the coracoclavicular ligament. IMPRESSION: 1. No acute findings. This document has been electronically signed by: Iva Meehan MD on 07/28/2025 23:01:16 CT cervical spine without contrast Comparison: CT - CT ANGIO HEAD NECK STROKE - 12/25/24 23:37 EST Findings: Straightening of cervical lordosis. No scoliosis. Moderate disc disease C5-C7 with marginal osteophytes. Mild to moderate multilevel facet disease. Moderate to severe multilevel foraminal stenoses most evident C5-C7. Old left distal clavicle fracture incompletely included on the exam. No acute cervical fracture. No acute findings on limited view of the intracranial contents. Soft tissues of the neck are normal. Lung apices are clear. IMPRESSION: Cervical degenerative spondylosis with no acute fracture. This document has been electronically signed by: Iva Meehan MD on 07/29/2025 02:30:58 CT head without contrast Comparison: MR - MR HEAD/BRAIN WO/W CON - 12/26/24 09:[address]/SR - CT HEAD FOR STROKE - 12/25/24 23:35 EST Findings: No midline shift or hydrocephalus. No acute hemorrhage. Gliosis/encephalomalacia left posterior frontal lobe with overlying craniotomy site. At this site, there are 3 soft tissue nodules measuring 11 mm on image 73:4 (Most recently 8 mm), 1.4 cm on image 70:4 (most recently 1.2 cm), and 2.3 cm on image 66:4 (most recently 1.3 cm). Moderate atrophy like changes. The visualized paranasal sinuses and mastoid air cells are normal. The orbits are unremarkable. There is no acute fracture. IMPRESSION: 1. Increased size of 3 masses at the previous left posterior frontal postoperative site. Correlate with patient history. 2. Otherwise no new findings. No acute hemorrhage. Discharge Plan Discharge Clinical Impression: Difficulty walking, Meningioma, Acute exacerbation of chronic obstructive pulmonary disease (COPD), Acute hypokalemia, Frequent falls Alcohol dependence Qualifiers: Substance use status: with intoxication Complication of substance-induced condition: uncomplicated Qualified Code(s): F10.220 - Alcohol dependence with intoxication, uncomplicated Patient Disposition: Admitted As Inpatient Interventions: Admission Worksheet (ED) Last Done: 07/29/25 08:31 Discharge Date/Time: 07/29/25 14:52
[2025-07-28] MEDS: Potassium Chloride ER 20 MEQ TAB.ER.PRT 40 MEQ PO (22:56)
[2025-07-28] MEDS: Albuterol Sulfate 5 MG, Albuterol/Iprat 2.5/0.5MG 3 ML 3 ML INHALE (23:16)
[2025-07-28 23:19] VITALS: PULSE 100; RESP 18; O2SAT 97
[2025-07-29] VITALS (10 sets, daily range): BP systolic 115–146; BP diastolic 57–81; PULSE 79–122; RESP 16–23; TEMP 36.1–36.8; O2SAT 93–98; BMI 41.4
[2025-07-29 00:05] LABS: Magnesium 1.9 mg/dL (1.6-2.6)
[2025-07-29 00:06] LABS: Alanine Aminotransferase 131 U/L (0-40); Albumin Level 4.0 g/dL (3.5-5.0); Alkaline Phosphatase 160 U/L (39-117); Aspartate Amino Transferase 97 U/L (5-37); Total Protein 6.5 g/dL (6.5-8.0)
[2025-07-29] MEDS: iohexoL 350 MG/ML 100 ML INFUS..BTL IV (01:35)
[2025-07-29] MEDS: Potassium Chloride/H20 10 MEQ/100 ML PIGGYBACK 100 MEQ IV ×4 (03:03→06:32)
--- NOTE | 2025-07-29 03:17 | PC.NURSE ---
Patient is alert and oriented x3, c/o chronic pain in b/l knees 5/10 at present. O2 sat 90-94 on oxymask at [address], HR 103 sinus tachy. Patient denies chest pain. 1 st bag of Potassium 10 mEQ started started and infusing w/o issues via 20 G IV line in R AC. Patient reports he is daily drinker, consumes 5 shots of vodka daily, denies symptoms of ETOH withdrawal, CIWA assessment completed, score 2. Patient currently resting in stretcher bed, call carver in patient's reach, plan of care ongoing.
[2025-07-29] MEDS: PHENobarbitaL sodium 130 MG/ML IM ONCE 292 MG IM (06:43)
[2025-07-29 07:37] LABS: Hematocrit 40.9 % (42.0-52.0); Hemoglobin 14.5 g/dl (14.0-18.0); Mean Corpuscular HGB Conc 35.5 g/dl (31.0-36.0); Mean Corpuscular Hemoglobin 33.2 pg (27.0-33.0); Mean Corpuscular Volume 93.6 fL (80.0-98.0); NRBC Abs Auto 0.000 X10*3/uL (0.0-0.012); NRBC Pct Auto 0.0 /100WBC (0.0-0.2); Platelet Count 190 X10*3/uL (160-400); Red Blood Count 4.37 X10*6/uL (4.60-5.80); White Blood Count 2.9 X10*3/uL (4.8-10.8)
[2025-07-29 07:56] LABS: Alanine Aminotransferase 122 U/L (0-40); Albumin Level 3.9 g/dL (3.5-5.0); Alkaline Phosphatase 157 U/L (39-117); Aspartate Amino Transferase 86 U/L (5-37); Blood Urea Nitrogen 6 mg/dL (9-16); Calcium 7.9 mg/dL (8.4-10.2); Creatinine Clr Calc Pharmacy 159.7; Estimated Glomerular Filt Rate > 60; Total Protein 6.3 g/dL (6.5-8.0)
[2025-07-29 08:03] LABS: Anion Gap 19 (12-20); Carbon Dioxide 18 mmol/L (22-29); Chloride 111 mmol/L (96-108); Potassium 3.5 mmol/L (3.3-5.1); Sodium 144 mmol/L (135-145)
--- NOTE | 2025-07-29 08:09 | PM.IMHP ---
History of Present Illness Date of Service: 07/29/25 Attending physician on admission: Cal Islas Chief Complaint: fall from scooter This is a 60-year-old male with history of alcohol abuse, epilepsy, history of meningioma status post resection who was brought to the emergency department after he fell off his scooter. Patient states he has been falling off a scooter frequently. He was admitted to [facility] in December of this year for ataxia and was discharged to rehab to work on physical therapy. He was released from rehab in April and he says that his strength never improved in his falls have been persistent since leaving rehab. He reports dizziness, but this doesn't seem to preceed falls necessarily. On arrival to the emergency department his alcohol level was 330. Lab work was significant for hypokalemia with a potassium of 2.9. Patient also reports shortness of breath which he states has been ongoing for at least several months with associated cough. He primarily uses his scooter for ambulation so does not walk very far on his own, but in the emergency department he was dyspneic with even short distance. He did not have any hypoxia. He smokes 1-1/2 packs of cigarettes daily which she has been doing for many years but has no official diagnosis of asthma/COPD/emphysema. Patient has a history of underlying epilepsy but has been noncompliant with his medication. He has a history of partial seizures and feels that he has been having seizures frequently. In the emergency department his potassium was replaced, he was treated with a breathing treatment and IV steroids. His CIWA score increased to 14 and he was started on phenobarbital protocol. He will be admitted for further management. Review of Systems Review of Systems: Yes all other systems are reviewed and are negative Constitutional: Constitutional: Denies chills and Denies fever(s) ENT: Reports dizziness Cardiovascular: Cardiovascular: Denies chest pain, Denies palpitations, Reports dyspnea and Reports dyspnea on exertion Respiratory: Respiratory: Reports cough, Reports dyspnea and Reports dyspnea on exertion Gastrointestinal: Gastrointestinal: Denies abdominal pain, Denies nausea and Denies vomiting Neurologic: Reports dizziness Endocrine: Endocrine: Denies palpitations PMFSH Medical History DVT (deep venous thrombosis) Major depressive disorder Epilepsy Alcohol abuse Social History Alcohol intake: current Alcohol intake frequency: 3 or more drinks per day Alcohol type: hard liquor Patient Tobacco Use Status: Current everyday Tobacco user Smoked in Last 30 Days: Yes Use of substances other than those prescribed or required for medical reasons: No Advance Directives: Yes Advance Directives on File: Yes Advance Directives Date on File: 12/29/24 Do you have a plan to hurt others: No Plan service: No Meds Allergies Allergy/AdvReac Type Severity Reaction Status Date / Time No Known Allergies Allergy Verified 07/28/25 21:34 Active Medications: Current Medications Pharmacy Consult (Consult Rx Etoh Phenob Im/Po) 1 each MISCELLANE ONCE PRN; Protocol PRN Reason: Consult order Phenobarbital (Phenobarbital 15 Mg Tablet) 45 mg PO BID OTONIEL; Protocol Stop: 07/31/25 09:01 Phenobarbital (Phenobarbital 30 Mg Tablet) 30 mg PO BID OTONIEL; Protocol Stop: 08/02/25 09:01 Phenobarbital (Phenobarbital 30 Mg Tablet) 30 mg PO DAILY OTONIEL; Protocol Stop: 08/04/25 09:01 Phenobarbital Sodium (Phenobarbital Sodium 130 Mg/Ml Vial Im Q3hx2) 221 mg IM Q3H OTONIEL; Protocol Stop: 07/29/25 13:01 Home Medications ?Medication ?Instructions ?Recorded ?Confirmed ?Last Taken ?Type apixaban 5 mg tablet (Eliquis) 5 mg PO BID 12/26/24 12/26/24 Unknown History duloxetine 20 mg capsule,delayed 20 mg PO BID 12/26/24 12/26/24 Unknown History release gabapentin 100 mg capsule 100 mg PO TID 12/26/24 12/26/24 Unknown History trazodone 50 mg tablet 25 mg PO BEDTIME 12/26/24 12/26/24 Unknown History primidone 50 mg tablet 50 mg PO DAILY 07/29/25 Unknown History Physical Exam Vital Signs and Narrative: Vital Signs: Last Vital Signs Temp 97.6 F 07/29/25 06:57 Pulse 101 H 07/29/25 06:57 Resp 17 07/29/25 06:57 BP 125/81 07/29/25 06:57 Pulse Ox 95 07/29/25 06:57 O2 Del Method Room Air 07/29/25 06:57 O2 Flow Rate 3 07/29/25 04:44 BMI result Body Mass Index 39.5 Const: General: cooperative, comfortable, no acute distress, alert and awake Nutritional Appearance: obese Orientation/consciousness: patient oriented x3 Resp: Other: Bilateral expiratory wheeze. No rales, no rhonchi Effort & Inspection: normal respiratory effort, able to speak in complete sentences, no respiratory distress and no use of accessory muscles Cardio: Rate: tachycardic GI: Inspection: Yes obesity Palpation (GI): Soft to palpation and nontender Skin: Other: abrasions right elbow; bruising left upper arm Neuro: General: patient oriented x3, moves all extremities and CN's II-XI intact bilaterally Extrem: Other: 1+ edema b/l Results Labs 07/29/25 07:31 07/29/25 07:31 Labs: Laboratory Results - last 24 hr 07/28/25 07/28/25 07/28/25 21:41 22:17 23:44 MCV 92.3 MCH 33.4 H MCHC 36.2 H RDW 14.2 Plt Count 218 MPV 10.1 Immature Gran % (Auto) 0.4 Neut % (Auto) 38.9 L Lymph % (Auto) 46.5 H Bucks % (Auto) 10.6 Eos % (Auto) 2.7 Baso % (Auto) 0.9 Lymph # (Auto) 2.6 Bucks # (Auto) 0.6 Eos # (Auto) 0.2 Baso # (Auto) 0.1 Abs Immat Gran (auto) 0.02 Absolute Neuts (auto) 2.2 Absolute Nucleated RBC 0.000 Nucleated RBC % (auto) 0.0 Anion Gap 19 Estim Creat Clear Calc 144.3 Estimated GFR > 60 Random Glucose 163 H Calcium 8.4 Magnesium 1.9 Total Bilirubin 0.3 Direct Bilirubin 0.2 AST 97 H ALT 131 H Alkaline Phosphatase 160 H Troponin I High Sens 8.5 D B-Natriuretic Peptide 16 Total Protein 6.5 Albumin 4.0 Urine Color Yellow Urine Appearance Clear Urine pH 6.0 Ur Specific [place] <= 1.005 Urine Protein Negative Urine Glucose (UA) Negative Urine Ketones Negative Urine Blood Negative Urine Nitrite Negative Ur Leukocyte Esterase Negative Urine Opiates Screen Not Detected Ur Buprenorphine Scrn Not Detected Ur Oxycodone Screen Not Detected Urine Methadone Screen Not Detected Urine Fentanyl Screen Not Detected Ur Barbiturates Screen Not Detected Phenytoin Ur Phencyclidine Scrn Not Detected Ur Amphetamines Screen Not Detected U Benzodiazepines Scrn Not Detected Urine Cocaine Screen Not Detected U Marijuana (THC) Screen Not Detected Ethyl Alcohol 330 H* 07/29/25 07/29/25 05:11 07:31 MCV 93.6 MCH 33.2 H MCHC 35.5 RDW 14.0 Plt Count 190 MPV 10.4 Immature Gran % (Auto) Neut % (Auto) Lymph % (Auto) Bucks % (Auto) Eos % (Auto) Baso % (Auto) Lymph # (Auto) Bucks # (Auto) Eos # (Auto) Baso # (Auto) Abs Immat Gran (auto) Absolute Neuts (auto) Absolute Nucleated RBC 0.000 Nucleated RBC % (auto) 0.0 Anion Gap 19 Estim Creat Clear Calc 159.7 Estimated GFR > 60 Random Glucose 205 H Calcium 7.9 L Magnesium Total Bilirubin 0.3 Direct Bilirubin 0.2 AST 86 H ALT 122 H Alkaline Phosphatase 157 H Troponin I High Sens B-Natriuretic Peptide Total Protein 6.3 L Albumin 3.9 Urine Color Urine Appearance Urine pH Ur Specific [place] Urine Protein Urine Glucose (UA) Urine Ketones Urine Blood Urine Nitrite Ur Leukocyte Esterase Urine Opiates Screen Ur Buprenorphine Scrn Ur Oxycodone Screen Urine Methadone Screen Urine Fentanyl Screen Ur Barbiturates Screen Phenytoin < 1.8 L* Ur Phencyclidine Scrn Ur Amphetamines Screen U Benzodiazepines Scrn Urine Cocaine Screen U Marijuana (THC) Screen Ethyl Alcohol Assessment and Plan (1) Alcohol dependence: Qualifiers: Complication of substance-induced condition: uncomplicated Substance use status: with intoxication Qualified Code(s): F10.220 - Alcohol dependence with intoxication, uncomplicated Status: Acute (2) Acute hypokalemia: Status: Acute (3) Acute exacerbation of chronic obstructive pulmonary disease (COPD): Status: Acute (4) Frequent falls: Status: Acute Plan This is a 60-year-old male with history of DVT no longer on Eliquis, seizure disorder, mood disorder, alcohol use disorder, craniotomy and resection of meningioma over 20 years ago who was brought in after fall off scooter found to have hypokalemia, alcohol withdrawal, shortness of breath and imaging showing increased size of brain masses. Alcohol use disorder with acute alcohol withdrawal CIWA score up to 14 Continue phenobarbital protocol Supplementation with thiamine, folic acid Addiction Medicine consultation shortness of breath likely due to Acute exacerbation of undiagnosed COPD given extensive smoking history and expiratory wheezing on exam bnp low but with leg edema, will obtain echo to rule out CM Scheduled, p.r.n. breathing treatments and systemic steroids low sodium diet will likely need formal outpatient PFTs Hypokalemia Magnesium level within normal limits Improved with replacement Transaminitis Likely due to alcohol use/hepatic steatosis outpatient follow up Frequent falls Seems to be chronic, had admission in December due to ataxia/falls and has been in a wheelchair/scooter since that time Physical therapy evaluation for safe disposition Seizure disorder has h/o epileptic and non-epileptic seizures no witnessed seizure activity in ED thus far Follows with Dr. Brito has been non-compliant with medication; dilantin level <1.8 will resume keppra; hold dilantin and carbamazepine as pt will be treated with phenobarbitol neurology consultation for further direction for medication adjustment seizure precautions Brain Masses h/o craniotomy and meningioma resection 20+ years ago follows with Dr. Brito MRI from December shows 3 massess with slight degree of change ct brain on admission showing increased size in masses no focal neuro deficits appreciated neuro consult Tobacco use disorder Smokes 1-1/2 pack of cigarettes daily Smoking cessation advised NRT pre-diabetes pt reports h/o pre-diabetes metformin listed on med claim history will check hba1c diabetic diet for now, if a1c elevated, can add SSI/POCs h/o DVT previously on Eliquis pt reports completing course of AC Morbid obesity BMI 39.5 Weight loss encouraged DVT ppx - Lovenox code status - discussed with patient; thinks he may have previously filled out a MOLST form indicating wishes for DNR but today wants to be full code patient does not have PCP, discussed need to obtain one due to multiple chronic medical conditions that need close monitoring Patient will likely require 2 midnight stay in the hospital for management of alcohol withdrawal, COPD exacerbation and frequent falls requiring specialist evaluation, electrolyte abnormalities requiring close monitoring and etoh withdrawal with risk for Dts. Quality Stroke Does the patient have a stroke diagnosis?: No VTE Prior VTE?: No VTE Risk Level:: Medical - moderate - high VTE Device Contraindication: N/A - Device Ordered VTE Drug Contraindication: N/A - Med Ordered
--- NOTE | 2025-07-29 08:39 | PHA.MEDREC ---
Addendum entered by Margaret Leo RPh 07/29/25 08:51: reviewed by [facility], will let provider know this may be an incomplete list as patient is unsure. Original Note: Pharmacy Consult ? Medication Reconciliation Pharmacy has completed the medication reconciliation. Patient is a poor historian. Patient could only confirm Phenytoin sod 100 mg, Carbamazepine 200 mg, Levetiracetam 750 mg. Patient states he thinks he takes primadone 50 mg but doesn't remember, last fill date was 05/27/25 for 30 days. Could not confirm If patient is taking Eliquis 5 mg last fill date was 01/31/25 for 15 days,Metformin 850 mg last filled 05/11/25 for 30 days, Baclofen 10 mg last filled 05/11/25 for 30 days, Trazadone 50 mg , last filled 05/07/25 for 30 days, Gabapentin 400 mg , last filled 05/07/25 for 30 days, chlorthalidone 25 mg last filled 05/07/25 for 30 days, Duloxetine 30 mg , last filled 05/07/25 for 30 days
[2025-07-29] MEDS: Nicotine 21 MG PATCH.TD24 TRANSDERMA (09:20)
[2025-07-29] MEDS: PHENobarbitaL sodium 130 MG/ML VIAL IM Q3Hx2 221 MG IM ×2 (09:22→14:05)
[2025-07-29 10:13] LABS: Hemoglobin A1C 177.6022 umol/L; Total Hemoglobin (HGBA1C) 3695.7876 umol/L
--- NOTE | 2025-07-29 10:55 | MHC.CM.PN ---
IMM 07/29/25, Pt. lives with S.O., he does not have a PCP, brochure and encouragement to sign up with new doctor provided. HCP on file and confirmed: Mark. Pt. was at [facility] for 6 months, went there following hosp. stay here in Dec. For DME, he has a scooter, and w/c. He can arrange a ride home at [place], DCP: possibly [facility], CM to follow for DC needs.
--- NOTE | 2025-07-29 12:00 | CA_ITS ---
Transthoracic Echocardiogram Patient (Last, First, Middle): Cortez Lama S Gender: Male Date of : 1965 Age: 60 Procedure Date: 07/29/2025 Procedure Type: Transthoracic Echocardiogram Location: ER Height: 177. cm Weight: 124.74 kg BSA: 2.38 m2 Heart Rate: 94 bpm BP: 140 / 75 mmHg [employer] Consultant: MANDEEP/GEORGES Referring MD: Soraida RYDER Symptoms: leg edema, sob Study Quality: Fair w/Contrast ECG Rhythm: Sinus Conclusions: - The left ventricular systolic function is normal. The visually estimated ejection fraction is between 65-70%. - There is moderately increased left ventricular wall thickness. - No obvious valvular pathology seen on this study. Findings Procedure Information Contrast agent, definity, is being given per protocol without apparent complications. Left Ventricle Normal left ventricular cavity size. There is moderately increased left ventricular wall thickness. The left ventricular systolic function is normal. The visually estimated ejection fraction is between 65-70%. There is no evidence of regional wall motion abnormalities. Diastolic function is normal for age. Right Ventricle Normal right ventricular cavity size and systolic function. Atria Both atria are normal in size. Aortic Valve The aortic valve was not well visualized. There is no aortic valve stenosis. There is no aortic valve regurgitation. Mitral Valve The mitral valve appears normal. There is no mitral valve regurgitation. There is no mitral valve stenosis. Pulmonic Valve The pulmonic valve is likely normal. Tricuspid Valve There is trace tricuspid valve regurgitation. Tricuspid regurgitation envelope is inadequate for calculation of right ventricular systolic pressure. Great Vessels The aortic arch is normal in size. There is mild dilatation of the ascending aorta measuring 3.80 cm. Venous The inferior vena cava is normal in size and collapses greater than 50% with inspiration. Pericardium/Pleural There is no evidence of pericardial effusion. Prior Study Comparison No prior study available for comparison. Recommendations, Care & Conclusions No obvious valvular pathology seen on this study. Measurements 2D Linear Measurements IVSd: 1.48 0.6-0.9/0.6-1.0 cm LVIDd: 4.83 3.9-5.3/4.2-5.9 cm LVIDd Index: 2.03 2.4-3.2/2.2-3.1 cm/m2 LVIDs: 2.96 2.0-3.6 cm LVPWd: 1.45 0.7-1.1 cm LA Diam: 4.00 2.7-3.8/3.0-4.0 cm LAIDs Index: 1.68 1.5-2.3 cm/m2 LV Mass: 368.79 67-162/88-224 g LV Mass Index: 154.96 43-95/49-115 g/m2 LVOT Diam: 2.20 3.0+(-)1.3 cm 2D Systolic Function EF 4C: 59.50 >55% EF 2C: 61.70 >55% EF BiP: 61.00 >55% Mitral Valve MV Pk E: 1.10 MV PK A: 0.85 MV Decel Time: 249.00 E/A: 1.30 E'Lateral: 7.40 E'Medial: 7.83 E/E' Med: 14.00 E/E' Lat: 14.90 PHT: 73.00 MVA PHT: 3.01 Decel [place]: 4.41 Aortic Valve AoV Pk Maynor: 1.66 AoV Mn Myanor: 1.11 AoV VTI: 0.29 AoV Pk Grad: 11.00 Aov Mn Grad: 6.00 MAGEN Cont.VTI: 3.32 LVOT LVOT Pk Maynor: 1.37 LVOT Mn Maynor: 0.92 LVOT VTI: 0.25 LVOT Pk Grad: 8.00 LVOT Mn Grad: 4.00 LVOT Diam: 2.20 LVOT Area: 3.80 Diastolic Function MV Pk E: 1.10 MV Pk A: 0.85 E/A: 1.30 E'Medial: 7.83 E/E' Med: 14.00 E' Laterial: 7.40 E/E' Lat: 14.90 Right Ventricle TAPSE (mm): 23.90 TVS' Maynor: 14.40 Great Vessels Aorta Sinus of Valsalva: 4.00 2.0-3.5 cm Ao Asc: 3.80 2.1-3.4 cm Ao Arch: 3.10 Pulmonary Veins Pulm Vein S/D 1.70 Pulmonary Valve PV Pk Maynor: 1.09 Peak PV Grad: 5.00 Updated in Other Vendor System with Status of Final Lambert Pickard MD electronically signed on 07/29/2025 5:03:20 PM with status of Final
[2025-07-29] MEDS: 0.9 % Sodium Chloride Flush 3 ML SYRINGE IVFLUSH ×2 (17:07→20:34)
[2025-07-29] MEDS: Albuterol/Iprat 2.5/0.5MG 3 ML AMPUL.NEB INHALE (18:46)
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
[2025-07-30] VITALS (7 sets, daily range): BP systolic 120–140; BP diastolic 60–96; PULSE 64–85; RESP 16–20; TEMP 36.1–37.1; O2SAT 92–97
[2025-07-30 06:37] LABS: Anion Gap 10 (12-20); Blood Urea Nitrogen 12 mg/dL (9-16); Calcium 8.0 mg/dL (8.4-10.2); Carbon Dioxide 28 mmol/L (22-29); Chloride 107 mmol/L (96-108); Creatinine Clr Calc Pharmacy 148.2; Estimated Glomerular Filt Rate > 60; Potassium 3.9 mmol/L (3.3-5.1); Sodium 141 mmol/L (135-145)
--- NOTE | 2025-07-30 07:37 | HO.PM.IMPN ---
Subjective Subjective Date of Service: 07/30/25 Interval History: His fiance was at the bedside throughout the encounter - we were chatting and laughing about his SOB/MALONE and seizures and alc withdrawal - pt aware that his KALEY is the etiology for his current hosp Was asking to go out for smoking and being DC - clinically not ready. Has remained seizure free since admission as he is on seizure meds and on Phenobarb protocol Endorses 1.5 pack cigarette smoking , Cont Phenobarb protocol Nephro and Addiction med consulted Review of Systems Review of Systems: Yes all other systems are reviewed and are negative Physical Exam Exam: Exam: Was seen in the room with his fiance at bedside General: AOx3, no acute distress Resp: ext wheezing , significant productive cough CVS: S1, S2, RRR GI: +BS, NT, no distention Skin: Warm, dry Neuro: Cranial nerves II-XII grossly intact bilaterally. Motor grossly intact bilaterally Extremities: No edema Psych: anxious and tremulous affect Vital Signs: Vital Signs: Last Vital Signs Temp 98.7 F 07/30/25 04:00 Pulse 82 07/30/25 04:00 Resp 16 07/30/25 04:00 BP 139/84 07/30/25 04:00 Pulse Ox 96 07/30/25 04:00 O2 Del Method Room Air 07/30/25 04:00 O2 Flow Rate 3 07/29/25 04:44 BMI result Body Mass Index 41.4 Objective Data Active Medications Acetaminophen (Acetaminophen 325 Mg Tablet) 650 mg PO Q6H PRN PRN Reason: Pain, Mild 1-3,fever,headache Albuterol/Ipratropium (Albuterol/Iprat 2.5/0.5mg 3 Ml Ampul.Neb) 3 ml INHALE Q4H PRN PRN Reason: Shortness of Breath/Wheezing Last Admin: 07/29/25 18:46 Dose: 3 ml Documented By: ANI Calcium Carbonate (Calcium Carbonate 750 Mg Tab.Chew) 750 mg PO Q4H PRN PRN Reason: Heartburn Enoxaparin Sodium (Enoxaparin Sodium 40 Mg/0.4 Ml Syringe) 40 mg SUBCUT Q24H [facility] Last Admin: 07/29/25 09:21 Dose: 40 mg Documented By: HARSHAD Folic Acid (Folic Acid 1 Mg Tablet) 1 mg PO DAILY [facility] Last Admin: 07/29/25 09:21 Dose: 1 mg Documented By: HARSHAD Levetiracetam (Levetiracetam 1,000 Mg Tablet) 1,500 mg PO BID [facility] Last Admin: 07/29/25 20:32 Dose: 1,500 mg Documented By: STERLING Magnesium Hydroxide (Milk Of Magnesia 30 Ml Oral.Susp) 30 ml PO DAILY PRN PRN Reason: Constipation Melatonin (Melatonin 3 Mg Tablet) 6 mg PO BEDTIME PRN PRN Reason: Insomnia Last Admin: 07/29/25 22:47 Dose: 6 mg Documented By: DIANE Methylprednisolone Sodium Succinate (Methylprednisolone Sod Succ 40 Mg/Ml Vial) 40 mg IVPUSH Q12H [facility] Last Admin: 07/29/25 20:33 Dose: 40 mg Documented By: STERLING Nicotine (Nicotine 21 Mg Patch.Td24) 21 mg TRANSDERMA DAILY [facility] Last Admin: 07/29/25 09:39 Dose: Not Given Documented By: HARSHAD Non-Admin Reason: Previously Administered Pharmacy Consult (Consult Rx Etoh Phenob Im/Po) 1 each MISCELLANE ONCE PRN; Protocol PRN Reason: Consult order Phenobarbital (Phenobarbital 15 Mg Tablet) 45 mg PO BID [facility]; Protocol Stop: 07/31/25 09:01 Last Admin: 07/29/25 20:32 Dose: 45 mg Documented By: STERLING Phenobarbital (Phenobarbital 30 Mg Tablet) 30 mg PO BID [facility]; Protocol Stop: 08/02/25 09:01 Phenobarbital (Phenobarbital 30 Mg Tablet) 30 mg PO DAILY [facility]; Protocol Stop: 08/04/25 09:01 Sodium Chloride (0.9 % Sodium Chloride Flush 3 Ml Syringe) 3 ml IVFLUSH QSHIFT [facility] Last Admin: 07/29/25 20:34 Dose: 3 ml Documented By: STERLING Thiamine HCl (Thiamine Hcl 100 Mg Tablet) 100 mg PO DAILY [facility] Last Admin: 07/29/25 09:21 Dose: 100 mg Documented By: HARSHAD Labs 07/29/25 07:31 07/30/25 05:50 Labs: Laboratory Results - last 24 hr 07/28/25 07/29/25 07/30/25 23:44 07:31 05:50 MCV 93.6 MCH 33.2 H MCHC 35.5 RDW 14.0 Plt Count 190 MPV 10.4 Absolute Nucleated RBC 0.000 Nucleated RBC % (auto) 0.0 Hold Purple Top SEE NOTE Anion Gap 19 10 L Estim Creat Clear Calc 159.7 148.2 Estimated GFR > 60 > 60 Random Glucose 205 H 165 H Estimat Average Glucose 140 Hemoglobin A1c % 6.5 H Calcium 7.9 L 8.0 L Total Bilirubin 0.3 Direct Bilirubin 0.2 AST 86 H ALT 122 H Alkaline Phosphatase 157 H Total Protein 6.3 L Albumin 3.9 Prolactin 3.9 Assessment and Plan (1) Alcohol withdrawal seizure with complication: Status: Acute Plan Pt is a 60 yo with PMH of seizure disorder, mood disorder, alcohol use disorder, 1.5 pack cigarette smoking , craniotomy and resection of meningioma over 20 years ago presents with fall and witnessed seizures 2/2 poorly controlled seizures 2/2 medication noncompliance and current ongoing CHRISTI. Fall and witnessed seizures 2/2 medication noncompliance and current ongoing CHRISTI. H/o meningioma Frequent falls H/o documented medication noncompliance Deconditioning likely A/C Resume home seizure meds, will inc dosage with not responding to current rx Neuro consulted, no acute intervention or EEG indicated this admission Fall seizure precautions PT/OT SNF placement Alcohol use disorder with acute alcohol withdrawal Transaminitis Electrolyte abn Continue phenobarbital protocol Supplementation with thiamine, folic acid Addiction Medicine consultation Replete electrolyte to goal Likely due to alcohol use/hepatic steatosis outpatient follow up SOB/MALONE 2/2 Current cigarette smoker- 1.5 PPD Undiagnosed LOTUS/COPD Initiate prn and re nebs Nicotine replacement Will need OP formal OP rx Smoking cessation advised NRT Brain Masses with h/o craniotomy and meningioma resection 20+ years ago follows with Dr. Brito MRI from December shows 3 massess with slight degree of change ct brain on admission showing increased size in masses no focal neuro deficits appreciated OP neuro f/up pre-diabetes pt reports h/o pre-diabetes metformin listed on med claim history will check hba1c diabetic diet for now, if a1c elevated, can add SSI/POCs h/o DVT previously on Eliquis pt reports completing course of AC No indication for OAC this admission- DVT /PE less likely Morbid obesity BMI 39.5 Weight loss encouraged DVT ppx - Lovenox code status - discussed with patient; thinks he may have previously filled out a MOLST form indicating wishes for DNR but today wants to be full code patient does not have PCP, discussed need to obtain one due to multiple chronic medical conditions that need close monitoring Patient will likely continue to require 2 midnight stay in the hospital for management of alcohol withdrawal, COPD exacerbation and frequent falls requiring specialist evaluation, electrolyte abnormalities requiring close monitoring and etoh withdrawal with risk for Dts. Quality Stroke Does the patient have a stroke diagnosis?: No VTE Prior VTE?: No VTE Risk Level:: Medical - moderate - high VTE Device Contraindication: N/A - Device Ordered VTE Drug Contraindication: N/A - Med Ordered
[2025-07-30] MEDS: Nicotine 21 MG PATCH.TD24 TRANSDERMA (08:29)
[2025-07-30] MEDS: 0.9 % Sodium Chloride Flush 3 ML SYRINGE IVFLUSH ×3 (08:31→20:42)
--- NOTE | 2025-07-30 12:44 | MHC.CM.PN ---
CM met with pt. to discuss PT rec for STR. Pt. was at [facility] for 6 months in the past. Pt. said he will not go to Rehab, he said he had a bad experience there. CM informed him that he cannot get VNA service due to not having a PCP, he said OK. DCP: home, self care.
--- NOTE | 2025-07-30 14:03 | P.CNNE_ITS ---
History of Present Illness Data of Consult Service Date: 07/30/25 Primary Care Provider: None Physician HPI Reason for consult: Seizures This is a 60-year-old man with a history of alcohol abuse meningioma and poorly controlled seizures. Lately he has not been following up in the office and ran out of medications several days ago. He has also started drinking. He is admitted with multiple seizures. [facility] Past Medical History Medical History DVT (deep venous thrombosis) Major depressive disorder Epilepsy Alcohol abuse Social History Social History Household Members: Family Housing: Other Do you presently have visiting nurse or other home services: No Alcohol intake: current Alcohol intake frequency: 3 or more drinks per day Alcohol type: hard liquor Patient Tobacco Use Status: Current everyday Tobacco user Tobacco use type: Cigarette Cigarettes Per Day: 10 e-Cigarette/Vaping Use: Never Used Second Hand Smoke Exposure: Yes Advance Directives Date on File: 12/29/24 service: No Meds Allergies Allergy/AdvReac Type Severity Reaction Status Date / Time No Known Allergies Allergy Verified 07/28/25 21:34 Active Medications: Current Medications Acetaminophen (Acetaminophen 325 Mg Tablet) 650 mg PO Q6H PRN PRN Reason: Pain, Mild 1-3,fever,headache Albuterol/Ipratropium (Albuterol/Iprat 2.5/0.5mg 3 Ml Ampul.Neb) 3 ml INHALE Q4H PRN PRN Reason: Shortness of Breath/Wheezing Last Admin: 07/29/25 18:46 Dose: 3 ml Calcium Carbonate (Calcium Carbonate 750 Mg Tab.Chew) 750 mg PO Q4H PRN PRN Reason: Heartburn Enoxaparin Sodium (Enoxaparin Sodium 40 Mg/0.4 Ml Syringe) 40 mg SUBCUT Q24H [facility] Last Admin: 07/30/25 08:30 Dose: 40 mg Folic Acid (Folic Acid 1 Mg Tablet) 1 mg PO DAILY [facility] Last Admin: 07/30/25 08:29 Dose: 1 mg Hydrocortisone (Hydrocortisone 1 % Cream 28.35 Gm Tube) 1 appl TOPICAL BID PRN; Protocol PRN Reason: itchy Levetiracetam (Levetiracetam 1,000 Mg Tablet) 1,500 mg PO BID [facility] Last Admin: 07/30/25 08:29 Dose: 1,500 mg Magnesium Hydroxide (Milk Of Magnesia 30 Ml Oral.Susp) 30 ml PO DAILY PRN PRN Reason: Constipation Melatonin (Melatonin 3 Mg Tablet) 6 mg PO BEDTIME PRN PRN Reason: Insomnia Last Admin: 07/29/25 22:47 Dose: 6 mg Methylprednisolone Sodium Succinate (Methylprednisolone Sod Succ 40 Mg/Ml Vial) 40 mg IVPUSH Q12H [facility] Last Admin: 07/30/25 08:29 Dose: 40 mg Nicotine (Nicotine 21 Mg Patch.Td24) 21 mg TRANSDERMA DAILY [facility] Last Admin: 07/30/25 08:29 Dose: 21 mg Pharmacy Consult (Consult Rx Etoh Phenob Im/Po) 1 each MISCELLANE ONCE PRN; Protocol PRN Reason: Consult order Phenobarbital (Phenobarbital 15 Mg Tablet) 45 mg PO BID [facility]; Protocol Stop: 07/31/25 09:01 Last Admin: 07/30/25 08:30 Dose: 45 mg Phenobarbital (Phenobarbital 30 Mg Tablet) 30 mg PO BID [facility]; Protocol Stop: 08/02/25 09:01 Phenobarbital (Phenobarbital 30 Mg Tablet) 30 mg PO DAILY [facility]; Protocol Stop: 08/04/25 09:01 Sodium Chloride (0.9 % Sodium Chloride Flush 3 Ml Syringe) 3 ml IVFLUSH QSHIFT [facility] Last Admin: 07/30/25 08:31 Dose: 3 ml Thiamine HCl (Thiamine Hcl 100 Mg Tablet) 100 mg PO DAILY [facility] Last Admin: 07/30/25 08:30 Dose: 100 mg Home Medications ?Medication ?Instructions ?Recorded ?Confirmed ?Last Taken ?Type apixaban 5 mg tablet (Eliquis) 5 mg PO BID 12/26/24 Unknown History duloxetine 20 mg capsule,delayed 20 mg PO BID 12/26/24 12/26/24 Unknown History release gabapentin 100 mg capsule 100 mg PO TID 12/26/2412/26 Unknown History trazodone 50 mg tablet 25 mg PO BEDTIME 12/26/24 Unknown History primidone 50 mg tablet 50 mg PO DAILY 07/29/25 Unk nown History Physical Exam 2 Vital Signs: Vital Signs: Last Vital Signs Temp 97.1 F 07/30/25 12:00 Pulse 78 07/30/25 12:00 Resp 18 07/30/25 12:00 BP 131/61 07/30/25 12:00 Pulse Ox 94 07/30/25 12:00 O2 Del Method Room Air 07/30/25 12:00 O2 Flow Rate 3 07/29/25 04:44 BMI result Body Mass Index 41.4 Neuro: Other: Alert and oriented with normal intellectual functions. Cranial nerves are normal. Nonfocal neurological examination. Results Labs 07/29/25 07:31 07/30/25 05:50 Labs: BMP 07/30/25 05:50 Sodium 141 Potassium 3.9 Chloride 107 Carbon Dioxide 28 BUN 12 Creatinine 0.73 Calcium 8.0 L Assessment and Plan (1) Epilepsy: Status: Acute Poorly controlled seizures due to noncompliance recently and alcohol abuse. Recommendation alcohol rehab. Encouraged regular follow-up. Restart his seizure medications as per home schedule. Meningioma stable (2) Meningioma: Status: Acute (3) Alcohol dependence: Qualifiers: Complication of substance-induced condition: uncomplicated Substance use status: with intoxication Qualified Code(s): F10.220 - Alcohol dependence with intoxication, uncomplicated Status: Acute Procedures Date of Service Date of Service: 07/30/25
--- NOTE | 2025-07-30 14:58 | MHC.RECOVRN ---
TW met with the patient in 485 to discuss current alcohol use and concerns related to increased risk of alcohol use and related problems.? On approach pt was alert and oriented, sitting in bed watching TV. He reports some ?tingling? in his lower extremities, and states, ?it?s probably why I?ve been falling?. Pt also describes a mild headache in relation to alcohol withdrawal and denies other symptoms. No diaphoresis or restlessness noted. Pt reports feeling ?better overall?? Pt reports consuming ?maybe 10 shots of vodka every evening since approximately April of this year. He reports having 4 years of abstinence prior to this, in which he quit ?cold turkey?. He reports he was in a physical rehab facility for a ?few weeks? and was kicked out with no place to go this past April. He states he stayed with his brother for a short time, but could no longer reside there and was forced to stay in motels until he could secure his own housing. He states he returned to consuming alcohol about the time he was released from the rehab facility. Pt has since moved in with his partner and feels secure in his current housing situation.? Pt denies other substance use, confirmed by toxicology report.? Pt states he has numerous recovery supports including a close friend and AA sponsor ?Cristobal?, his partner, and several other close friends. Discussed how alcohol use has impacted health, including negative impact on mental health and overall physical well being.? Discussed risk and reduction strategies including drinking below the recommended limit, utilizing recovery supports, maintaining adequate nutrition and hydration, and seizure medication adherence. Provided pt with written resources including information on inpatient and outpatient treatment, [facility], harm reduction and recovery coaching.?? Patient voiced interest in starting [facility] which was discussed w/ Verito Price NP and would like to follow-up w/ [facility] upon discharge for future [facility]. Pt declines further intervention, such as recovery coaching at this time.? Pt was provided with TW?s contact information if questions or concerns arise. Pt denies further questions or concerns at this time.?
[2025-07-30] MEDS: oxyCODONE HCl Immed Release 5 MG TABLET PO (20:48)
[2025-07-31] VITALS (7 sets, daily range): BP systolic 119–142; BP diastolic 66–84; PULSE 65–78; RESP 18–20; TEMP 36.2–36.6; O2SAT 96–98
[2025-07-31] MEDS: oxyCODONE HCl Immed Release 5 MG TABLET PO (04:40)
--- NOTE | 2025-07-31 07:27 | P.PNIM_ITS ---
Subjective Subjective Date of Service: 07/31/25 Interval History: Pt reports symptomatic improvement - will continue care His fiance was at the bedside throughout the encounter - we were chatting and laughing about his SOB/MALONE and seizures and alc withdrawal - pt aware that his KALEY is the etiology for his current hosp Was asking to go out for smoking and being DC - clinically not ready. Has remained seizure free since admission as he is on seizure meds and on Phenobarb protocol Endorses 1.5 pack cigarette smoking , Cont Phenobarb protocol Review of Systems Review of Systems: Yes all other systems are reviewed and are negative Physical Exam 2 Exam: Exam: Was seen in the room with his fiance at bedside General: AOx3, no acute distress Resp: ext wheezing , significant productive cough - improved CVS: S1, S2, RRR GI: +BS, NT, no distention Motor grossly intact bilaterally Extremities: No edema Psych: anxious and tremulous affect Vital Signs: Vital Signs: Last Vital Signs Temp 97.2 F 07/31/25 02:59 Pulse 78 07/31/25 02:59 Resp 20 07/31/25 02:59 BP 141/84 H 07/31/25 02:59 Pulse Ox 96 07/31/25 02:59 O2 Del Method Room Air 07/31/25 02:59 O2 Flow Rate 3 07/29/25 04:44 BMI result Body Mass Index 41.4 Objective Data Active Medications Acetaminophen (Acetaminophen 325 Mg Tablet) 650 mg PO Q6H PRN PRN Reason: Pain, Mild 1-3,fever,headache Albuterol/Ipratropium (Albuterol/Iprat 2.5/0.5mg 3 Ml Ampul.Neb) 3 ml INHALE Q4H PRN PRN Reason: Shortness of Breath/Wheezing Last Admin: 07/29/25 18:46 Dose: 3 ml Documented By: ANI Calcium Carbonate (Calcium Carbonate 750 Mg Tab.Chew) 750 mg PO Q4H PRN PRN Reason: Heartburn Enoxaparin Sodium (Enoxaparin Sodium 40 Mg/0.4 Ml Syringe) 40 mg SUBCUT Q24H [facility] Last Admin: 07/30/25 08:30 Dose: 40 mg Documented By: NORBERTO Folic Acid (Folic Acid 1 Mg Tablet) 1 mg PO DAILY [facility] Last Admin: 07/30/25 08:29 Dose: 1 mg Documented By: NORBERTO Hydrocortisone (Hydrocortisone 1 % Cream 28.35 Gm Tube) 1 appl TOPICAL BID PRN; Protocol PRN Reason: itchy Levetiracetam (Levetiracetam 1,000 Mg Tablet) 1,500 mg PO BID [facility] Last Admin: 07/30/25 20:39 Dose: 1,500 mg Documented By: PATRICIA Magnesium Hydroxide (Milk Of Magnesia 30 Ml Oral.Susp) 30 ml PO DAILY PRN PRN Reason: Constipation Melatonin (Melatonin 3 Mg Tablet) 6 mg PO BEDTIME PRN PRN Reason: Insomnia Last Admin: 07/30/25 20:48 Dose: 6 mg Documented By: PATRICIA Methylprednisolone Sodium Succinate (Methylprednisolone Sod Succ 40 Mg/Ml Vial) 40 mg IVPUSH Q12H [facility] Last Admin: 07/30/25 20:40 Dose: 40 mg Documented By: PATRICIA Nicotine (Nicotine 21 Mg Patch.Td24) 21 mg TRANSDERMA DAILY [facility] Last Admin: 07/30/25 08:29 Dose: 21 mg Documented By: NORBERTO Oxycodone HCl (Oxycodone Hcl Immed Release 5 Mg Tablet) 5 mg PO Q6H PRN PRN Reason: genralized pain Last Admin: 07/31/25 04:40 Dose: 5 mg Documented By: PATRICIA Pharmacy Consult (Consult Rx Etoh Phenob Im/Po) 1 each MISCELLANE ONCE PRN; Protocol PRN Reason: Consult order Phenobarbital (Phenobarbital 15 Mg Tablet) 45 mg PO BID [facility]; Protocol Stop: 07/31/25 09:01 Last Admin: 07/30/25 20:40 Dose: 45 mg Documented By: PATRICIA Phenobarbital (Phenobarbital 30 Mg Tablet) 30 mg PO BID [facility]; Protocol Stop: 08/02/25 09:01 Phenobarbital (Phenobarbital 30 Mg Tablet) 30 mg PO DAILY [facility]; Protocol Stop: 08/04/25 09:01 Sodium Chloride (0.9 % Sodium Chloride Flush 3 Ml Syringe) [address] [facility] Last Admin: 07/30/25 20:42 Dose: 3 ml Documented By: PATRICIA Thiamine HCl (Thiamine Hcl 100 Mg Tablet) 100 mg PO DAILY [facility] Last Admin: 07/30/25 08:30 Dose: 100 mg Documented By: NORBERTO Labs 07/29/25 07:31 07/30/25 05:50 Assessment and Plan (1) Alcohol withdrawal seizure with complication: Status: Acute Plan Pt is a 60 yo with PMH of seizure disorder, mood disorder, alcohol use disorder, 1.5 pack cigarette smoking , craniotomy and resection of meningioma over 20 years ago presents with fall and witnessed seizures 2/2 poorly controlled seizures 2/2 medication noncompliance and current ongoing CHRISTI. Fall and witnessed seizures 2/2 medication noncompliance and current ongoing CHRISTI. H/o meningioma Frequent falls H/o documented medication noncompliance Deconditioning likely A/C Continue home seizure meds, will inc dosage with not responding to current rx Neuro consulted, no acute intervention or EEG indicated this admission Fall seizure precautions PT/OT SNF placement Alcohol use disorder with acute alcohol withdrawal Transaminitis Electrolyte abn Continue phenobarbital protocol Supplementation with thiamine, folic acid Addiction Medicine consultation Replete electrolyte to goal Likely due to alcohol use/hepatic steatosis outpatient follow up SOB/MALONE 2/2 Current cigarette smoker- 1.5 PPD Undiagnosed LOTUS/COPD Initiate prn and re nebs Nicotine replacement Will need OP formal OP rx Smoking cessation advised NRT Brain Masses with h/o craniotomy and meningioma resection 20+ years ago follows with Dr. Brito MRI from December shows 3 massess with slight degree of change ct brain on admission showing increased size in masses no focal neuro deficits appreciated OP neuro f/up pre-diabetes accu checks ACHS h/o DVT , s/p Eliquis rx completed pt reports completing course of AC No indication for OAC this admission- DVT /PE less likely Morbid obesity BMI 39.5 Weight loss encouraged DVT ppx - Lovenox code status - discussed with patient; thinks he may have previously filled out a MOLST form indicating wishes for DNR but today wants to be full code patient does not have PCP, discussed need to obtain one due to multiple chronic medical conditions that need close monitoring Patient will likely continue to require 2 midnight stay in the hospital for management of alcohol withdrawal, COPD exacerbation and frequent falls requiring specialist evaluation, electrolyte abnormalities requiring close monitoring and etoh withdrawal with risk for Dts. This note is constructed using voice recognition software. While every effort has been made to ensure accuracy, gang punch operator errors may have been included. Quality Stroke Does the patient have a stroke diagnosis?: No VTE Prior VTE?: No VTE Risk Level:: Medical - moderate - high VTE Device Contraindication: N/A - Device Ordered VTE Drug Contraindication: N/A - Med Ordered
[2025-07-31] MEDS: Nicotine 21 MG PATCH.TD24 TRANSDERMA (08:13)
[2025-07-31] MEDS: 0.9 % Sodium Chloride Flush 3 ML SYRINGE IVFLUSH ×3 (08:14→19:44)
--- NOTE | 2025-07-31 11:26 | MHC.RECOVRN ---
Pt to follow-up with [facility] upon discharge for intake appt to initiate on CAMERON. Pt currently prescribed Oxycodone for pain managment and therefor contraindicated. Appt for [facility] obtained and entered into discharge summary
--- NOTE | 2025-07-31 14:03 | PC.NURSE ---
Pt refusing bed alarm despite scoring as a high fall risk, education provided on importance of ringing call carver before attempting to get out of bed and reasons for fall risk measures.
[2025-07-31] MEDS: Albuterol/Iprat 2.5/0.5MG 3 ML AMPUL.NEB INHALE (20:56)
[2025-08-01] VITALS: BP 146/79; PULSE 66; RESP 16; TEMP 36.1; O2SAT 96
[2025-08-01 03:24] VITALS: BP 134/73; PULSE 72; RESP 18; TEMP 36; O2SAT 95
--- NOTE | 2025-08-01 04:44 | PC.NURSE ---
Pt seen on bed at the start of the shift, alert and oriented, c/o SOB, LS dim, O2 sats 98% RA, mildly anxious and restless as pt claimed, c/o DÍAZ, c/o bilat leg pain which is chronic for him as he claimed, scheduled meds given, pt refused bed alarm, reiterated safety precautions, pt promised to use the callbell when needing assistance, slept fairly.
--- NOTE | 2025-08-01 06:57 | HO.PM.IMPN ---
Subjective Subjective Date of Service: 08/01/25 Physical Exam Vital Signs: Vital Signs: Last Vital Signs Temp 96.8 F 08/01/25 03:24 Pulse 72 08/01/25 03:24 Resp 18 08/01/25 03:24 BP 134/73 08/01/25 03:24 Pulse Ox 95 08/01/25 03:24 O2 Del Method Room Air 08/01/25 03:24 O2 Flow Rate 3 07/29/25 04:44 BMI result Body Mass Index 41.4 Objective Data Active Medications Acetaminophen (Acetaminophen 325 Mg Tablet) 650 mg PO Q6H PRN PRN Reason: Pain, Mild 1-3,fever,headache Albuterol/Ipratropium (Albuterol/Iprat 2.5/0.5mg 3 Ml Ampul.Neb) 3 ml INHALE Q4H PRN PRN Reason: Shortness of Breath/Wheezing Last Admin: 07/31/25 20:56 Dose: 3 ml Documented By: TEJINDER Calcium Carbonate (Calcium Carbonate 750 Mg Tab.Chew) 750 mg PO Q4H PRN PRN Reason: Heartburn Last Admin: 07/31/25 19:44 Dose: 750 mg Documented By: UGO Enoxaparin Sodium (Enoxaparin Sodium 40 Mg/0.4 Ml Syringe) 40 mg SUBCUT Q24H [facility] Last Admin: 07/31/25 08:12 Dose: 40 mg Documented By: CLOLINS Folic Acid (Folic Acid 1 Mg Tablet) 1 mg PO DAILY [facility] Last Admin: 07/31/25 08:13 Dose: 1 mg Documented By: COLLINS Gabapentin (Gabapentin 100 Mg Capsule) 100 mg PO TID [facility] Last Admin: 07/31/25 19:43 Dose: 100 mg Documented By: UGO Hydrocortisone (Hydrocortisone 1 % Cream 28.35 Gm Tube) 1 appl TOPICAL BID PRN; Protocol PRN Reason: itchy Levetiracetam (Levetiracetam 1,000 Mg Tablet) 1,500 mg PO BID [facility] Last Admin: 07/31/25 19:43 Dose: 1,500 mg Documented By: UGO Magnesium Hydroxide (Milk Of Magnesia 30 Ml Oral.Susp) 30 ml PO DAILY PRN PRN Reason: Constipation Melatonin (Melatonin 3 Mg Tablet) 6 mg PO BEDTIME PRN PRN Reason: Insomnia Last Admin: 07/30/25 20:48 Dose: 6 mg Documented By: PATRICIA Methylprednisolone Sodium Succinate (Methylprednisolone Sod Succ 40 Mg/Ml Vial) 40 mg IVPUSH DAILY [facility] Nicotine (Nicotine 21 Mg Patch.Td24) 21 mg TRANSDERMA DAILY [facility] Last Admin: 07/31/25 08:13 Dose: 21 mg Documented By: COLLINS Oxycodone HCl (Oxycodone Hcl Immed Release 5 Mg Tablet) 5 mg PO Q6H PRN PRN Reason: genralized pain Last Admin: 07/31/25 04:40 Dose: 5 mg Documented By: PATRICIA Pantoprazole Sodium (Pantoprazole Sodium 40 Mg/10 Ml Vial) 40 mg IVPUSH DAILY@0630 [facility] Last Admin: 08/01/25 06:10 Dose: 40 mg Documented By: UGO Pharmacy Consult (Consult Rx Etoh Phenob Im/Po) 1 each MISCELLANE ONCE PRN; Protocol PRN Reason: Consult order Phenobarbital (Phenobarbital 30 Mg Tablet) 30 mg PO BID [facility]; Protocol Stop: 08/02/25 09:01 Last Admin: 07/31/25 19:43 Dose: 30 mg Documented By: UGO Phenobarbital (Phenobarbital 30 Mg Tablet) 30 mg PO DAILY [facility]; Protocol Stop: 08/04/25 09:01 Sodium Chloride (0.9 % Sodium Chloride Flush 3 Ml Syringe) 3 ml IVFLUSH [facility] Last Admin: 07/31/25 19:44 Dose: 3 ml Documented By: UGO Thiamine HCl (Thiamine Hcl 100 Mg Tablet) 100 mg PO DAILY [facility] Last Admin: 07/31/25 08:13 Dose: 100 mg Documented By: COLLINS Trazodone HCl (Trazodone Hcl 50 Mg Tablet) 50 mg PO BEDTIME [facility] Last Admin: 07/31/25 19:44 Dose: 50 mg Documented By: UGO Labs 07/29/25 07:31 07/30/25 05:50 Quality Stroke Does the patient have a stroke diagnosis?: No VTE Prior VTE?: No VTE Risk Level:: Medical - moderate - high VTE Device Contraindication: N/A - Device Ordered VTE Drug Contraindication: N/A - Med Ordered
[2025-08-01 07:29] VITALS: BP 146/75; PULSE 67; RESP 20; TEMP 36.1; O2SAT 92
[2025-08-01] MEDS: Nicotine 21 MG PATCH.TD24 TRANSDERMA (08:22)
[2025-08-01] MEDS: 0.9 % Sodium Chloride Flush 3 ML SYRINGE IVFLUSH (08:32)
[2025-08-01 12:00] VITALS: BP 134/67; PULSE 73; RESP 16; TEMP 36.2; O2SAT 97
--- NOTE | 2025-08-01 12:13 | MHC.CM.PN ---
CM MET WITH PT AND S/O AT BEDSIDE BOTH ARE AWARE STR WAS RECOMMENDED, HOWEVER, PT STATES HE IS NOT GOING BACK TO A REHAB HE SAYS HE WAS AT [facility] FOR 6 MONTHS, BOTH PT AND S/O SAY THEY DID NOTHING FOR HIM, HOWEVER THEY DO NOTE HE IS AMBULATING BETTER PT WILL BE GOING TO STAY WITH A FRIEND AND IS AWARE HE WILL NOT BE ELIGIBLE FOR VNA DUE TO NOT HAVING A PCP PTS S/O STATES SHE IS WORKING ON GETTING PT INTO HER PCP OFFICE. THEY BOTH STATE PT HAS BEEN EXERCISING AT HOME AND FEELS SAFE TO RETURN. PT WILL DC HOME TODAY WITH NO SERVICES S/O WILL TRANSPORT
--- NOTE | 2025-08-01 12:30 | P.DS_ITS ---
DS: Providers Provider Date of Service: 08/01/25 Date of admission: 07/29/25 06:31 Date of discharge: 08/01/25 Primary care physician: None Physician Consults: 07/29/25 08:11 Addiction Medicine Provider Routine Consulting Provider: Addiction [facility] Reason for consultation: etoh use Has provider been notified: No 07/29/25 08:38 Consult to Neurology Routine Consulting Provider: [facility] Reason for consultation: increasing brain masses h/o meningioma; seizures Has provider been notified: No DS: Diagnosis Discharge Diagnosis (1) Alcohol withdrawal seizure with complication: Status: Acute DS: Summary Hospital Course Hospital Course: Fall and witnessed seizures 2/2 medication noncompliance and current ongoing [id number] since admission Pt is a 60 yo with PMH of seizure disorder, mood disorder, alcohol use disorder, 1.5 pack cigarette smoking , craniotomy and resection of meningioma over 20 years ago presents with fall and witnessed seizures 2/2 poorly controlled seizures 2/2 medication noncompliance and current ongoing CHRISTI. Patient's phenytoin level on admission was less than 1.8. Patient likely was very noncompliant with his medication and even stated so combined with his alcohol withdrawal seizures which is the likely etiology of his seizure. He reportedly ran out of the meds as well as has no medical follow-up per patient. Patient just going to refer rehab 6 months ago. We did not make any adjustments to his home medication phenytoin or Keppra or carbamazepine. Nephrology was consulted, no indication for EEG or medication adjustments this admission as we will likely have an etiology for his seizures. Is home regimen includes carbamazepine 600 mg p.o. b.i.d., Keppra 1500 p.o. b.i.d., phenytoin 400 mg p.o. b.i.d. Brain Masses with h/o craniotomy and meningioma resection 20+ years ago follows with Dr. Brito MRI from December shows 3 massess with slight degree of change ct brain on admission showing increased size in masses no focal neuro deficits appreciated OP neuro f/up Deconditioning, chronic falls at home Recent discharge from SNF PT recommended SNF placement however patient adamantly refused. Alcohol use disorder with acute alcohol withdrawal, maintained on phenobarb protocol with good effect , repleted with thiamine and folic acid in Addiction Medicine was consulted. Transaminitis -likely in the setting of transaminitis-needs to follow up with PCP/GI for further workup-patient in agreement Severe hypokalemia-likely in the setting of alcohol use disorder, aggressively checked and corrected to goal daily, monitored on telemetry SOB/MALONE 2/2 Current cigarette smoker- 1.5 PPD Undiagnosed LOTUS/COPD Patient has a plethora of high-risk factors for COPD/LOTUS-smokes 1.5 pack per d ay, was noted to have mild hypoxia, tachypnea, tachycardia, tatiana face, was treated with steroids, inhalation and pulmonary hygiene with good effect. He was prescribed cough suppressants and encouraged expectoration. Patient was cough free by the time of this discharge. Patient advised to refrain from smoking cessation and advised to check pulmonary function test in outpatient settings since we do not have that inpatient and needs to be prescribed by primary care-which he said he will attempt to have outpatient. Nicotine replacement was ordered this admission. Morbid obesity 39.5 Prediabetes Patient advised to maintain dietary indiscretions, diabetic diet and outpatient follow-up Patient deferred nutrition consult this admission h/o DVT , s/p Eliquis rx completed pt reports completing course of AC No indication for OAC this admission- DVT /PE less likely DVT ppx was maintained with Lovenox patient does not have PCP, discussed need to obtain one due to multiple chronic medical conditions that need close monitoring -patient said he would do that on his own This note is constructed using voice recognition software. While every effort has been made to ensure accuracy, art psychotherapist errors may have been included. Patient is a high-risk of readmission given multiple medical comorbidities with poor medical and pharmacological compliance. Time spent discussing smoking cessation with patient: more than 10 minutes Time Attestation Discharge Coordination Time (in mins): 35 Quality: Safe Use of Opioids Does Pt have an Active Cancer Diagnosis on the Problem List?: No Quality: Stroke Does the patient have a stroke diagnosis?: No Physical Exam Vital Signs: Vital Signs: Last Vital Signs Temp 97.2 F 08/01/25 12:00 Pulse 73 08/01/25 12:00 Resp 16 08/01/25 12:00 BP 134/67 08/01/25 12:00 Pulse Ox 97 08/01/25 12:00 O2 Del Method Room Air 08/01/25 12:00 O2 Flow Rate 3 07/29/25 04:44 BMI result Body Mass Index 41.4 Discharge Plan Discharge Anticipated Discharge Date/Time: 08/01/25 11:36 Patient Disposition: Home Health Service Discharge Diagnosis: Alcohol withdrawal seizures, medication noncompliance Referrals: [facility] [Provider Group] - 08/09/25 11:00 am Referral Note: This is an intake appointment Please bring your ID and insurance card if available. If you are unable to keep this appointment, please call the office to reschedule Physician,None [Primary Care Provider, Medical] - 1 Week Discharge Medications: New prednisone 20 mg Tablet 40 mg PO DAILY 30 Days Qty: 60 0RF nicotine 21 mg/24 hr Patch 24 Hour 21 mg transdermal DAILY 30 Days Qty: 30 0RF folic acid 1 mg Tablet 1 mg PO DAILY 30 Days Qty: 30 0RF thiamine mononitrate (vit B1) 100 mg Tablet 100 mg PO DAILY 30 Days Qty: 30 0RF albuterol sulfate [Ventolin HFA] 90 mcg/actuation HFA aerosol inhaler 1 inh inhalation Q6H PRN (Reason: shortness of breath or wheezing) Qty: 8.5 0RF Breo Ellipta 50-25 mcg/dose blister with device 1 inh inhalation DAILY Qty: 60 0RF Continued carbamazepine 200 mg tablet 600 mg PO BID 90 Days Qty: 540 1RF phenytoin sodium extended 100 mg capsule 400 mg PO BID 90 Days Qty: 720 1RF levetiracetam 750 mg tablet 1,500 mg PO BID 90 Days Qty: 360 1RF trazodone 50 mg tablet 25 mg PO BEDTIME duloxetine 20 mg capsule,delayed release(DR/EC) 20 mg PO BID Eliquis 5 mg Tablet 5 mg PO BID primidone 50 mg tablet 50 mg PO DAILY gabapentin 100 mg Capsule 100 mg PO TID 30 Days Qty: 0 0RF Discharge Orders: Discharge Order (Routine); Ordered 08/01/25 Ordered By: Mihaela Alba Diet: Low salt diet Activity on Discharge: As tolerated Stand Alone Forms: Patient Portal Discharge page Print Language: Khmer Care Plan Goals: Getting a PCP and maintaining sobriety Patient advised STR - patient adamantly refusing-documented Patient advised about maintaining sobriety with alcohol and refraining from nicotine Patient advised about smoking cessation and reaching out if he needs extra care to his PCP Patient is aware about medication compliance as his phenytoin level was less than 1.8 likely in the setting of alcohol induced MSSA and noncompliance. Patient needs to get PFTs and and for official diagnosis of COPD/LOTUS Health Concerns: See above Plan of Treatment: See above Assessment: See above
--- NOTE | 2025-08-02 12:53 | P.EN_ITS ---
Event Note Date of Service: 08/02/25 Event Note: Addiction follow up note. Patient discharged on 08/01. Expressed interest in starting Naltrexone. Naltrexone rx sent to patients pharamcy on record. network infrastructure architect called patient to inform him of rx [facility] appt in place already for 08/09 Time Spent With Patient Time: Total time managing care of this patient today ____ minutes.
== END 2025-08-01 13:18 | disposition home health service (06) | DRG 897 ==
LOC: HO.ED 07-29 05:42 → HO.EDOVER 07-29 06:50 → HO.IMC 07-29 14:23 → HO.S3 07-31 13:54
PROVIDERS: Physician Assistant; Physician Assistant Medical; Admitting Provider Internal Medicine; Emergency Provider Emergency Medicine; Visit Provider Student in an Organized Health Care Education/Training Program
DX: F10.239 Alcohol dependence with withdrawal, unspecified (principal); J44.1 Chronic obstructive pulmonary disease with (acute) exacerbation; G40.909 Epilepsy, unspecified, not intractable, without status epilepticus; F17.210 Nicotine dependence, cigarettes, uncomplicated; Y90.8 Blood alcohol level of 240 mg/100 ml or more; Z71.6 Tobacco abuse counseling; E87.6 Hypokalemia; F10.229 Alcohol dependence with intoxication, unspecified; R73.03 Prediabetes; Z86.718 Personal history of other venous thrombosis and embolism; K76.0 Fatty (change of) liver, not elsewhere classified; R56.9 Unspecified convulsions; E66.01 Morbid (severe) obesity due to excess calories; G47.33 Obstructive sleep apnea (adult) (pediatric); Z68.39 Body mass index [BMI] 39.0-39.9, adult; Z91.148 Patient's other noncompliance with medication regimen for other reason; Z91.199 Patient's noncompliance with other medical treatment and regimen due to unspecified reason; Z71.3 Dietary counseling and surveillance; Z79.01 Long term (current) use of anticoagulants; Z79.899 Other long term (current) drug therapy
CPT/HCPCS: 36415; 70450; 71046; 72125; 74177; 80048; 80076; 80185; 80307; 81003; 83036; 83735; 83880; 84146; 84484; 85025; 85027; 93005; 93306; 94640; 97162; 97530; 99285; J1650; J2470; J2560; J2919; J3480; Q9957; Q9967; S9485

== ENCOUNTER → 2025-07-28 21:42 | Outpatient (BNV) | payer MEDICARE, MEDICAID, SELFPAY | PROVIDERS: Admitting Provider Internal Medicine; Emergency Provider Emergency Medicine; Visit Provider Internal Medicine | DX: I45.10 Unspecified right bundle-branch block (principal); R00.0 Tachycardia, unspecified | CPT/HCPCS: 93010 ==

== ENCOUNTER → 2025-07-28 22:27 | Outpatient (BNV) | payer MEDICARE, MEDICAID, SELFPAY | PROVIDERS: Emergency Provider Emergency Medicine; Visit Provider Radiology Diagnostic Radiology | DX: R06.02 Shortness of breath (principal); W19.XXXA Unspecified fall, initial encounter | CPT/HCPCS: 71046 ==

== ENCOUNTER 2025-07-29 06:31 | Outpatient (BNV) | payer MEDICARE, MEDICAID, SELFPAY | END 2025-07-29 12:00 | PROVIDERS: Admitting Provider Internal Medicine; Emergency Provider Emergency Medicine; Visit Provider Internal Medicine | DX: I51.7 Cardiomegaly (principal); I51.89 Other ill-defined heart diseases | CPT/HCPCS: 93306 ==

== ENCOUNTER → 2025-07-29 06:31 | Outpatient (BNV) | payer MEDICARE, MEDICAID, SELFPAY | PROVIDERS: Admitting Provider Internal Medicine; Emergency Provider Emergency Medicine; Visit Provider Psychiatry & Neurology Neurology | DX: G40.909 Epilepsy, unspecified, not intractable, without status epilepticus (principal); D32.9 Benign neoplasm of meninges, unspecified; F10.220 Alcohol dependence with intoxication, uncomplicated | CPT/HCPCS: 99222 ==

== ENCOUNTER → 2025-07-29 06:31 | Outpatient (BNV) | payer MEDICARE, MEDICAID, SELFPAY | PROVIDERS: Admitting Provider Internal Medicine; Emergency Provider Emergency Medicine; Visit Provider Physician Assistant Medical | DX: F10.939 Alcohol use, unspecified with withdrawal, unspecified (principal); R56.9 Unspecified convulsions | CPT/HCPCS: 99223; 99232; 99239 ==

== ENCOUNTER → 2025-07-29 06:31 | Outpatient (BNV) | payer MEDICARE, MEDICAID, SELFPAY | PROVIDERS: Admitting Provider Internal Medicine; Emergency Provider Emergency Medicine; Visit Provider Nurse Practitioner Psychiatric/Mental Health | DX: F10.220 Alcohol dependence with intoxication, uncomplicated (principal) | CPT/HCPCS: 99221 ==

== ENCOUNTER → 2025-07-29 | Outpatient (BNV) | payer MEDICARE, MEDICAID, SELFPAY | PROVIDERS: Emergency Provider Emergency Medicine; Visit Provider Radiology Diagnostic Radiology | DX: K57.30 Diverticulosis of large intestine without perforation or abscess without bleeding (principal); K44.9 Diaphragmatic hernia without obstruction or gangrene; M50.322 Other cervical disc degeneration at C5-C6 level; G93.89 Other specified disorders of brain; G31.1 Senile degeneration of brain, not elsewhere classified | CPT/HCPCS: 70450; 72125; 74177 ==

== ENCOUNTER 2025-09-06 23:30 | Inpatient (IN) | payer MEDICARE, MEDICAID, SELFPAY ==
--- NOTE | ~2025-09-06 | CT_ITS ---
CLINICAL HISTORY: seizure, fall CT head without contrast Comparison: Head CT from 07/29/2025 Findings: No acute intracranial hemorrhage. Low-density of the left frontal lobe remains nonspecific by CT. Adjacent residual brain and/or nodularity is not significantly changed by noncontrast CT. No interim MRI available for review at this time. Adjacent calcifications appear extra-axial including deep to previous left upper craniotomy. Partially empty sella. No midline shift or hydrocephalus. Cavum septum pellucidum again noted. Mild mucosal thickening of the imaged paranasal sinuses. Small right mastoid effusion. IMPRESSION: 1. No acute intracranial abnormality by CT. 2. No significant change compared to 07/29/[address] This document has been electronically signed by: Arpit Haji MD on 09/07/2025 02:46:12
--- NOTE | ~2025-09-06 | CT_ITS ---
CLINICAL HISTORY: seizure, fall, EtOH CT cervical spine without contrast Comparison: CT of the cervical spine from 07/29/2025. Findings: Study is degraded by patient motion artifacts. No definite acute cervical spine fracture, accounting for artifacts. Posterior arch lucency of the C1 is likely on a congenital basis. Mild anterolisthesis at C3-C4. Mild rotation of the C1 relative to C2. Disc osteophyte complexes are redemonstrated with mild spinal canal stenosis again noted including C5-C6 and C6-C7. There is moderate to severe foraminal narrowing including C5-C6 and C6-C7. Facet arthropathy and ligament calcifications are multifocal. No paraspinal hematoma. Mild scarring and emphysematous changes of the imaged lung apices. Vascular calcifications noted. IMPRESSION: No acute fracture of the cervical spine. This document has been electronically signed by: Arpit Haji MD on 09/07/2025 02:52:59
--- NOTE | ~2025-09-06 | MR_ITS ---
CLINICAL HISTORY: seizure disorder, hx of crainectomy MR Brain with and without intravenous contrast Comparison: MRI of the brain from 12/26/2024. Findings: No restricted diffusion acute brain infarction. Postprocedural changes from small left upper frontal parietal craniotomy with small left frontal resection including upper portion of the left superior frontal gyrus. Resection cavity extend to anterior margin of the left precentral gyrus. No significant change in 3 enhancing masses and/or nodules. These are favored to be extra-axial by imaging such as residual or recurrent meningiomas. Dural metastasis of the lesions not excluded by imaging. These left frontal-apical extra-axial enhancing lesions measure 0.8 to 1.4 cm range, without significant change from comparison. No significant change in left frontal vasogenic edema about the small left frontal resection cavity. Additional mild/minimal white matter lesions are nonspecific and can have an association with vascular type (migraines) headaches given bifrontal and subcortical distribution. No dural venous sinus thrombosis, accounting for arachnoid granulations. No significant change of the imaged sella. Dural thickening persists, particularly deep to the craniotomy. No acute intracranial hemorrhage. Fluid and mucosal thickening nonspecific in the imaged paranasal sinuses. Moderate right and minimal left mastoid effusions. IMPRESSION: Stable examination; when compared to 12/26/2024. No significant change in 3 small left apical-frontal extra-axial enhancing nodules. This document has been electronically signed by: Arpit Haji MD on 09/08/2025 19:25:26
--- NOTE | ~2025-09-06 | XR_ITS ---
CLINICAL HISTORY: cough 1 view chest x-ray Comparison: Chest x-ray from 07/28/2025 Findings: Mild pulmonary opacities nonspecific and may reflect atelectasis/pneumonitis. No pneumothorax or pleural effusion. Mild emphysematous changes are redemonstrated. Imaged mediastinum appears unchanged. Left clavicle fracture deformity appears old and partially imaged. 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 IMPRESSION: Mild atelectasis/pneumonitis This document has been electronically signed by: Arpit Haji MD on 09/07/2025 01:25:05
--- NOTE | ~2025-09-06 | XR_ITS ---
CLINICAL HISTORY: fall, pain Exam: AP, lateral, and oblique views of the right elbow. Comparison: None provided. Findings: Bony alignment is anatomic. No acute fracture or joint effusion. Mild degenerative change of the elbow joint. Tiny calcification within the distal triceps tendon. Impression: No fracture. This document has been electronically signed by: Sebastian Alvarez MD on 09/07/2025 03:21:17
--- NOTE | ~2025-09-06 | XR_ITS ---
CLINICAL HISTORY: fall, pain Exam: AP, grashey, and scapular Y-views of the right shoulder. Comparison: None provided. Findings: Alignment of the glenohumeral joint and AC joints is anatomic. Moderate AC joint DJD. Glenohumeral joint is well-maintained. There is mild impaction of the lateral aspect of the humeral head involving the greater tuberosity. Is a curvilinear fracture fragment measuring approximately 12 x 4 mm in size adjacent to this area of impaction. No other fractures are identified. Impression: Impaction type fracture of the greater tuberosity as above. This document has been electronically signed by: Sebastian Alvraez MD on 09/07/2025 03:19:55
--- NOTE | ~2025-09-06 | XR_ITS ---
CLINICAL HISTORY: fall, pain Exam: PA, lateral, oblique, and scaphoid views of the right wrist. Comparison: None provided. Findings: There is 2 mm of ulnar positive variance. Bony alignment is otherwise anatomic. No acute fracture. No cystic change of the distal ulna with the proximal lunate. No erosions. Remote fracture deformities of the 1st and 5th metacarpals. Impression: No acute fracture. This document has been electronically signed by: Sebastian Alvarez MD on 09/07/2025 03:20:29
[2025-09-06 23:40] VITALS: BP 143/87; BP 157/97; PULSE 102; PULSE 106; RESP 20; TEMP 36.8; O2SAT 95; BMI 39.8
[2025-09-06 23:47] LABS: Glucose, Whole Blood 261 mg/dL (60-115)
--- NOTE | 2025-09-06 23:54 | ECG_ITS ---
Test Reason : SEIZURE Blood Pressure : */* mmHG Vent. Rate : 99 BPM Atrial Rate : 99 BPM P-R Int : 172 ms QRS Dur : 88 ms QT Int : 362 ms P-R-T Axes : 55 258 50 degrees QTcB Int : 464 ms Normal sinus rhythm Incomplete right bundle branch block Borderline ECG When compared with ECG of 28-Jul-2025 21:42, No significant changes seen Referred By: Ines Guevara Electronically Signed By: PENNIE JONES
[2025-09-07] VITALS (11 sets, daily range): BP systolic 128–148; BP diastolic 69–93; PULSE 99–106; RESP 16–24; TEMP 36.4–37.3; O2SAT 95–97; BMI 40.7
[2025-09-07 00:12] LABS: MANUAL DIFF FLAG NO
[2025-09-07 00:14] LABS: Venous Blood Gas Refer to POC result
[2025-09-07 00:17] LABS: VBG HCO3 25 mmol/L (22-26); VBG O2 % Saturation 75.0 %
[2025-09-07 00:20] LABS: Hematocrit 47.6 % (42.0-52.0); Hemoglobin 16.1 g/dl (14.0-18.0); Imm Gran Abs Auto 0.06 X10*3/uL (0.00-0.03); Imm Gran Pct Auto 0.8 % (0.0-0.4); Lymphocytes Absolute Auto 1.5 X10*3/uL (1.2-4.9); Mean Corpuscular HGB Conc 33.8 g/dl (31.0-36.0); Mean Corpuscular Hemoglobin 31.9 pg (27.0-33.0); Mean Corpuscular Volume 94.3 fL (80.0-98.0); NRBC Abs Auto 0.000 X10*3/uL (0.0-0.012); NRBC Pct Auto 0.0 /100WBC (0.0-0.2); Platelet Count 258 X10*3/uL (160-400); Red Blood Count 5.05 X10*6/uL (4.60-5.80); White Blood Count 7.1 X10*3/uL (4.8-10.8)
[2025-09-07 00:20] LABS: Appearance Urine Clear; Glucose Urine UA >=1000 mg/dL (Negative); PH 5.5 (5.0-9.0); Specific Gravity - Urine 1.015 (1.005-1.025); UMIC TRIGGER UACC YES
[2025-09-07 00:30] LABS: COVID-19 Test Negative (Negative); IDNOW Serial# 58CA691E
[2025-09-07 00:30] LABS: Cannabinoid Screen Urine Not Detected (Not Detect)
--- OUTSIDE RECORDS SUMMARY | 2025-09-07 00:30 | XMS_ITS | Encounter Summary ---
Author Organization [facility] Address [address] [place] [address] Care Team Providers Care Lumber Driver Name Role Phone Physician, No Pcp Primary Care Provider Unavaila ble Encounter Details Date Type Department Care Team (Late st Contact Info) Description 02/08/2025 Lab Requisition [facility] - Main Lab 299 [facility] [place] [address] Ailyn Stringer MD [address] [phone] Malignant neoplasm of brain, unspecified (CMS/HCC V24, CMS/HCC V28) Social History Tobacco Use Types Packs/Day Years Used Date Smoking Tobacco: Every Day Cigarettes Smokeless Tobacco: Current Interpersonal Safety Answer Date Record ed Physical Abuse Unrecognized value 11/07/2024 Verbal Abuse Unrecognized value 11/07/2024 Sex and Gender Information Value Date [...] mmol/L LAB CHEMISTRY METHOD 02/09/2025 10:28 AM [facility] Potassium 4.3 3.5 - 5.5 mmol/L LAB CHEMISTRY METHOD 02/09/2025 10:28 AM [facility] Chloride 104 96 - 110 mmol/L LAB CHEMISTRY METHOD 02/09/2025 10:28 AM [facility] CO2 27 21 - 32 mmol/L LAB CHEMISTRY METHOD 02/09/2025 10:28 AM [facility] Anion Gap 8 3 - 11 LAB CHEMISTRY METHOD 02/09/2025 10:28 AM [facility] Glucose 235(H) 70 - 100 mg/dL LAB CHEMISTRY METHOD 02/09/2025 10:28 AM [facility] BUN 13 5 - 25 mg/dL LAB CHEMISTRY METHOD 02/09/2025 10:28 AM [facility] Creatinine 0.65(L) 0.70 - 1.30 mg/dL LAB CHEMISTRY METHOD 02/09/2025 10:28 AM [facility] eGFR 109 >=60 mL/min/1. 73m2 LAB CHEMISTRY METHOD 02/09/2025 10:28 AM [facility] Comment:Calculation based on the Chronic Kidney Disease Epidemiology Collaboration (CKD-EPI) equation refit without adjustment for race. BUN/Creatinine Ratio 20.0 LAB CHEMISTRY METHOD 02/09/2025 10:28 AM [facility] Calcium 9.1 8.5 - 10.5 mg/dL LAB CHEMISTRY METHOD 02/09/2025 10:28 AM [facility] AST (SGOT) 11 10 - 42 unit/L LAB CHEMISTRY METHOD 02/09/2025 10:28 AM [facility] ALT (SGPT) 37 10 - 60 unit/L LAB CHEMISTRY METHOD 02/09/2025 10:28 AM [facility] Alkaline Phosphatase 148(H) 42 - 121 unit/L LAB CHEMISTRY METHOD 02/09/2025 10:28 AM [facility] Total Protein 6.6 6.0 - 8.0 g/dL LAB CHEMISTRY METHOD 02/09/2025 10:28 AM [facility] Albumin 3.2 3.2 - 5.0 g/dL LAB CHEMISTRY METHOD 02/09/2025 10:28 AM [facility] Total Bilirubin 0.2 0.0 - 1.4 mg/dL LAB CHEMISTRY METHOD 02/09/2025 10:28 AM [facility] Blood Venous blood specimen / Unknown Venipuncture / Unknown 02/09/2025 5:47 AM EDT 02/09/2025 9:25 AM EDT us Ailyn Stringer MD LAB BLOOD ORDERABLES Fin al Result [facility] [address] [place] [address], * Complete blood count (02/09/2025 5:47 AM EDT) WBC 6.2 4.8 - 10.8 K/mcL LAB HEMETOLOGY METHOD 02/09/2025 9:36 AM EDT [facility] RBC 4.50 4.50 - 5.50 M/mcL LAB HEMETOLOGY METHOD 02/09/2025 9:36 AM EDT [facility] Hemoglobin 14.2 13.5 - 17.5 g/dL LAB HEMETOLOGY METHOD 02/09/2025 9:36 AM EDT [facility] Hematocrit 42.2 42.0 - 54.0 % LAB HEMETOLOGY METHOD 02/09/2025 9:36 AM EDT [facility] MCV 94.6 79.0 - 98.0 FL LAB HEMETOLOGY METHOD 02/09/2025 9:36 AM EDT [facility] MCH 31.8 27.0 - 32.0 pcg LAB HEMETOLOGY METHOD 02/09/2025 9:36 AM EDT [facility] MCHC 33.6 32.0 - 37.0 g/dL LAB HEMETOLOGY METHOD 02/09/2025 9:36 AM EDT [facility] RDW 12.3 11.0 - 15.0 % LAB HEMETOLOGY METHOD 02/09/2025 9:36 AM EDT [facility] Platelets 254 130 - 400 K/mcL LAB HEMETOLOGY METHOD 02/09/2025 9:36 AM EDT [facility] MPV 11.0 7.0 - 11.0 FL LAB HEMETOLOGY METHOD 02/09/2025 9:36 AM EDT [facility] NRBC 0.0 <1.0 % LAB HEMETOLOGY METHOD 02/09/2025 9:36 AM EDT [facility] NRBC Absolute 0.00 <0.10 K/mcL LAB HEMETOLOGY METHOD 02/09/2025 9:36 AM EDT [facility] Blood Venous blood specimen / Unknown Venipuncture / Unknown 02/09/2025 5:47 AM EDT 02/09/2025 9:25 AM EDT us Ailyn Stringer MD LAB BLOOD ORDERABLES Fin al Result [facility]) [facility] [address] [place] [address], documented in this encounter Visit Diagnoses Diagnosis Malignant neoplasm of brain, unspecified (CMS/HCC V24, CMS/HCC V28) documented in this encounter Care Teams Lumber Driver Relationship Specialty Start Date End Date Physician, No Pcp PCP - General 11/05/24 documented as of this encounter
--- OUTSIDE RECORDS SUMMARY | 2025-09-07 00:30 | XMS_ITS | Encounter Summary ---
Author Organization [facility] Address [address] [place] [address] Care Team Providers Care Laundry Tech Name Role Phone Physician, No Pcp Primary Care Provider Unavaila ble Encounter Details Date Type Department Care Team (Late st Contact Info) Description 01/11/2025 Lab Requisition [facility] - Main Lab [address] [facility] [place] [address] Ailyn Stringer MD [address] [phone] Encounter for therapeutic drug level monitoring Social [...] Hold for add-ons. 01/12/2025 10:01 AM EST [facility] Comment:Auto resulted. Blood Venous blood specimen / Unknown Venipuncture / Unknown 01/12/2025 5:48 AM EST 01/12/2025 8:56 AM EST Ailyn Stringer MD LAB BLOOD ORDERABLES Fin al Result [facility] [address] [place] [address], * Phenytoin level free (01/12/2025 5:48 AM EST) Phenytoin, Free (Dilantin) 1.2 0.8 - 2.0 ug/mL 01/14/2025 12:08 PM EST [facility] Comment: Phenytoin free toxic level: >3.0 ug/mL If applicable, any drug confirmation testing reported here was developed and the performance characteristics determined by [facility]. This confirmation testing has not been cleared or approved by the FDA. The laboratory is regulated under CLIA as qualified to perform high-complexity testing. This test is used for patient testing purposes. It should not be regarded as investigational or for research. Test performed at [facility], [address], [place] [address] Vee Em MD, PhD - Stock Clipper Blood Venous blood specimen / Unknown Venipuncture / Unknown 01/12/2025 5:48 AM EST 01/12/2025 8:56 AM EST Ailyn Stringer MD LAB BLOOD ORDERABLES Fin al Result [facility] [address] [place] [address] documented in this encounter Visit Diagnoses Diagnosis Encounter for therapeutic drug level monitoring documented in this encounter Care Teams Laundry Tech Relationship Specialty Start Date End Date Physician, No Pcp PCP - General 11/05/24 documented as of this encounter
--- OUTSIDE RECORDS SUMMARY | 2025-09-07 00:30 | XMS_ITS | Encounter Summary ---
Author Organization [facility] Address [address] [place] [address] Care Team Providers Care Cost Accountant Name Role Phone Physician, No Pcp Primary Care Provider Unavaila ble Encounter Details Date Type Department Care Team (Late st Contact Info) Description 02/28/2025 Lab Requisition [facility] - Main Lab 299 [facility] [place] [address] Ailyn Stringer MD [address] [phone] Malignant neoplasm of brain, unspecified (CMS/HCC V24, [...] of brain, unspecified (CMS/HCC V24, CMS/HCC V28) COMPREHENSIVE METABOLIC PANEL Routine 03/01/2025 7:42 AM EDT Malignant neoplasm of brain, unspecified (CMS/HCC V24, CMS/HCC V28) documented in this encounter Results * (ABNORMAL) Comprehensive metabolic panel (03/01/2025 7:42 AM EDT) Sodium 139 133 - 145 mmol/L LAB CHEMISTRY METHOD 03/01/2025 1:45 PM [facility] Potassium 3.8 3.5 - 5.5 mmol/L LAB CHEMISTRY METHOD 03/01/2025 1:45 PM [facility] Chloride 104 96 - 110 mmol/L LAB CHEMISTRY METHOD 03/01/2025 1:45 PM [facility] CO2 21 21 - 32 mmol/L LAB CHEMISTRY METHOD 03/01/2025 1:45 PM [facility] Anion Gap 14(H) 3 - 11 LAB CHEMISTRY METHOD 03/01/2025 1:45 PM [facility] Glucose 344(H) 70 - 100 mg/dL LAB CHEMISTRY METHOD 03/01/2025 1:45 PM [facility] BUN 11 5 - 25 mg/dL LAB CHEMISTRY METHOD 03/01/2025 1:45 PM [facility] Creatinine 0.81 0.70 - 1.30 mg/dL LAB CHEMISTRY METHOD 03/01/2025 1:45 PM [facility] eGFR 102 >=60 mL/min/1. 73m2 LAB CHEMISTRY METHOD 03/01/2025 1:45 PM [facility] Comment:Calculation based on the Chronic Kidney Disease Epidemiology Collaboration (CKD-EPI) equation refit without adjustment for race. BUN/Creatinine Ratio 13.6 LAB CHEMISTRY METHOD 03/01/2025 1:45 PM [facility] Calcium 9.0 8.5 - 10.5 mg/dL LAB CHEMISTRY METHOD 03/01/2025 1:45 PM [facility] AST (SGOT) 11 10 - 42 unit/L LAB CHEMISTRY METHOD 03/01/2025 1:45 PM [facility] ALT (SGPT) 33 10 - 60 unit/L LAB CHEMISTRY METHOD 03/01/2025 1:45 PM [facility] Alkaline Phosphatase 151(H) 42 - 121 unit/L LAB CHEMISTRY METHOD 03/01/2025 1:45 PM [facility] Total Protein 6.8 6.0 - 8.0 g/dL LAB CHEMISTRY METHOD 03/01/2025 1:45 PM [facility] Albumin 3.3 3.2 - 5.0 g/dL LAB CHEMISTRY METHOD 03/01/2025 1:45 PM [facility] Total Bilirubin 0.3 0.0 - 1.4 mg/dL LAB CHEMISTRY METHOD 03/01/2025 1:45 PM [facility] Blood Venous blood specimen / Unknown Venipuncture / Unknown 03/01/2025 7:42 AM EDT 03/01/2025 11:32 AM EDT us Ailyn Stringer MD LAB BLOOD ORDERABLES Fin al Result [facility] [address] [place] [address], * (ABNORMAL) Complete blood count (03/01/2025 7:42 AM EDT) [facility] Signature WBC 7.9 4.8 - 10.8 K/mcL LAB HEMETOLOGY METHOD 03/01/2025 12:52 PM EDT [facility] RBC 4.70 4.50 - 5.50 M/mcL LAB HEMETOLOGY METHOD 03/01/2025 12:52 PM EDT [facility] Hemoglobin 15.1 13.5 - 17.5 g/dL LAB HEMETOLOGY METHOD 03/01/2025 12:52 PM EDT [facility] Hematocrit 43.3 42.0 - 54.0 % LAB HEMETOLOGY METHOD 03/01/2025 12:52 PM EDT [facility] MCV 92.3 79.0 - 98.0 FL LAB HEMETOLOGY METHOD 03/01/2025 12:52 PM EDT [facility] MCH 32.2(H) 27.0 - 32.0 pcg LAB HEMETOLOGY METHOD 03/01/2025 12:52 PM EDT [facility] MCHC 34.9 32.0 - 37.0 g/dL LAB HEMETOLOGY METHOD 03/01/2025 12:52 PM EDT [facility] RDW 12.4 11.0 - 15.0 % LAB HEMETOLOGY METHOD 03/01/2025 12:52 PM EDT [facility] Platelets 238 130 - 400 K/mcL LAB HEMETOLOGY METHOD 03/01/2025 12:52 PM EDT [facility] MPV 11.8(H) 7.0 - 11.0 FL LAB HEMETOLOGY METHOD 03/01/2025 12:52 PM EDT [facility] NRBC 0.0 <1.0 % LAB HEMETOLOGY METHOD 03/01/2025 12:52 PM EDT [facility] NRBC Absolute 0.00 <0.10 K/mcL LAB HEMETOLOGY METHOD 03/01/2025 12:52 PM EDT [facility] Blood Venous blood specimen / Unknown Venipuncture / Unknown 03/01/2025 7:42 AM EDT 03/01/2025 11:32 AM EDT us Ailyn Stringer MD LAB BLOOD ORDERABLES Fin al Result [facility] [address] [place] [address], documented in this encounter Visit Diagnoses Diagnosis Malignant neoplasm of brain, unspecified (CMS/HCC V24, CMS/HCC V28) documented in this encounter Care Teams Cost Accountant Relationship Specialty Start Date End Date Physician, No Pcp PCP - General 11/05/24 documented as of this encounter
--- OUTSIDE RECORDS SUMMARY | 2025-09-07 00:30 | XMS_ITS | Encounter Summary ---
Author Organization [facility] Address [address] [place] [address] Care Team Providers Care Survey Instrument Operator Name Role Phone Physician, No Pcp Primary Care Provider Unavaila ble Encounter Details Date Type Department Care Team (Late st Contact Info) Description 02/16/2025 Lab Requisition [facility] - Main Lab [address] [facility] [place] [address] Ailyn Stringer MD [address] [phone] Unspecified convulsions (CMS/HCC V24, CMS/HCC V28); Epilepsy, unspecified, not intractable, with status epilepticus (CMS/HCC V24, CMS/HCC V28); Other fpc (current) drug therapy Social History Tobacco Use [...] not intractable, with status epilepticus Other superintendent terminal (current) drug therapy HEMOGLOBIN A1C Routine 02/16/2025 5:29 AM EDT Unspecified convulsions (CMS/HCC) Epilepsy, unspecified, not intractable, with status epilepticus Other fpc (current) drug therapy BASIC METABOLIC PANEL Routine 02/16/2025 5:29 AM EDT Unspecified convulsions (CMS/HCC) Epilepsy, unspecified, not intractable, with status epilepticus Other superintendent terminal (current) drug therapy documented in this encounter Results * (ABNORMAL) Hemoglobin A1c (02/16/2025 5:29 AM EDT) Hemoglobin A1C 9.0(H) <6.5 % LAB CHEMISTRY METHOD 02/16/2025 1:58 PM EDT [facility] Mean Bld Glu Estim. 212 mg/dL LAB CHEMISTRY METHOD 02/16/2025 1:58 PM EDT [facility] Blood Venous blood specimen / Unknown Venipuncture / Unknown 02/16/2025 5:29 AM EDT 02/16/2025 8:08 AM EDT us Ailyn Stringer MD LAB BLOOD ORDERABLES Fin al Result [facility] [address] [place] [address], [place] [phone] * (ABNORMAL) Basic metabolic panel (02/16/2025 5:29 AM EDT) Sodium 135 133 - 145 mmol/L LAB CHEMISTRY METHOD 02/16/2025 9:13 AM [facility] Potassium 4.1 3.5 - 5.5 mmol/L LAB CHEMISTRY METHOD 02/16/2025 9:13 AM [facility] Chloride 102 96 - 110 mmol/L LAB CHEMISTRY METHOD 02/16/2025 9:13 AM [facility] CO2 27 21 - 32 mmol/L LAB CHEMISTRY METHOD 02/16/2025 9:13 AM [facility] Anion Gap 6 3 - 11 LAB CHEMISTRY METHOD 02/16/2025 9:13 AM [facility] Glucose 316(H) 70 - 100 mg/dL LAB CHEMISTRY METHOD 02/16/2025 9:13 AM [facility] BUN 14 5 - 25 mg/dL LAB CHEMISTRY METHOD 02/16/2025 9:13 AM [facility] Creatinine 0.72 0.70 - 1.30 mg/dL LAB CHEMISTRY METHOD 02/16/2025 9:13 AM [facility] eGFR 105 >=60 mL/min/1. 73m2 LAB CHEMISTRY METHOD 02/16/2025 9:13 AM [facility] Comment:Calculation based on the Chronic Kidney Disease Epidemiology Collaboration (CKD-EPI) equation refit without adjustment for race. BUN/Creatinine Ratio 19.4 LAB CHEMISTRY METHOD 02/16/2025 9:13 AM [facility] Calcium 9.2 8.5 - 10.5 mg/dL LAB CHEMISTRY METHOD 02/16/2025 9:13 AM EDT [facility] Blood Venous blood specimen / Unknown Venipuncture / Unknown 02/16/2025 5:29 AM EDT 02/16/2025 8:08 AM EDT us Ailyn Stringer MD LAB BLOOD ORDERABLES Fin al Result [facility] [address] [place] [address], * (ABNORMAL) Complete blood count (02/16/2025 5:29 AM EDT) WBC 8.4 4.8 - 10.8 K/mcL LAB HEMETOLOGY METHOD 02/16/2025 8:52 AM [facility] RBC 4.80 4.50 - 5.50 M[facility] LAB HEMETOLOGY METHOD 02/16/2025 8:52 AM [facility] Hemoglobin 15.5 13.5 - 17.5 g/dL LAB HEMETOLOGY METHOD 02/16/2025 8:52 AM [facility] Hematocrit 45.8 42.0 - 54.0 % LAB HEMETOLOGY METHOD 02/16/2025 8:52 AM T [facility] MCV 95.2 79.0 - 98.0 FL LAB HEMETOLOGY METHOD 02/16/2025 8:52 AM [facility] MCH 32.2(H) 27.0 - 32.0 pcg LAB HEMETOLOGY METHOD 02/16/2025 8:52 AM [facility] MCHC 33.8 32.0 - 37.0 g/dL LAB HEMETOLOGY METHOD 02/16/2025 8:52 AM [facility] RDW 12.3 11.0 - 15.0 % LAB HEMETOLOGY METHOD 02/16/2025 8:52 AM EDT [facility] Platelets 270 130 - 400 K/mcL LAB HEMETOLOGY METHOD 02/16/2025 8:52 AM EDT [facility] MPV 11.5(H) 7.0 - 11.0 FL LAB HEMETOLOGY METHOD 02/16/2025 8:52 AM EDT [facility] NRBC 0.0 <1.0 % LAB HEMETOLOGY METHOD 02/16/2025 8:52 AM EDT [facility] NRBC Absolute 0.00 <0.10 K/mcL LAB HEMETOLOGY METHOD 02/16/2025 8:52 AM EDT [facility] Blood Venous blood specimen / Unknown Venipuncture / Unknown 02/16/2025 5:29 AM EDT 02/16/2025 8:08 AM EDT us Ailyn Stringer MD LAB BLOOD ORDERABLES Fin al Result [facility] [address] [place] [address], documented in this encounter Visit Diagnoses Diagnosis Unspecified convulsions (CMS/HCC V24, CMS/HCC V28) Epilepsy, unspecified, not intractable, with status epilepticus (CMS/HCC V24, CMS/HCC V28) Other fpc (current) drug therapy documented in this encounter Care Teams Survey Instrument Operator Relationship Specialty Start Date End Date Physician, No Pcp PCP - General 11/05/24 documented as of this encounter
--- OUTSIDE RECORDS SUMMARY | 2025-09-07 00:30 | XMS_ITS | Encounter Summary ---
Author Organization [facility] Address [address] [place] [address] Care Team Providers Care Production Service Manager Name Role Phone Physician, No Pcp Primary Care Provider Unavaila ble Encounter Details Date Type Department Care Team (Late st Contact Info) Description 03/05/2025 Lab Requisition [facility] - Main Lab [address] [facility] [place] [address] Ailyn Stringer MD [address] [phone] Malignant neoplasm of brain, unspecified (CMS/HCC V24, [...] AM EDT Malignant neoplasm of brain, unspecified ([facility]/HCC V24, [facility]/HCC V28) COMPREHENSIVE METABOLIC PANEL Routine 03/08/2025 7:09 AM EDT Malignant neoplasm of brain, unspecified ([facility]/HCC V24, CMS/HCC V28) documented in this encounter Results * (ABNORMAL) Comprehensive metabolic panel (03/08/2025 7:09 AM EDT) Sodium 134 133 - 145 mmol/L LAB CHEMISTRY METHOD 03/08/2025 7:45 PM [facility] Potassium 4.0 3.5 - 5.5 mmol/L LAB CHEMISTRY METHOD 03/08/2025 7:45 PM [facility] Chloride 100 96 - 110 mmol/L LAB CHEMISTRY METHOD 03/08/2025 7:45 PM [facility] CO2 23 21 - 32 mmol/L LAB CHEMISTRY METHOD 03/08/2025 7:45 PM [facility] Anion Gap 11 3 - 11 LAB CHEMISTRY METHOD 03/08/2025 7:45 PM [facility] Glucose 375(H) 70 - 100 mg/dL LAB CHEMISTRY METHOD 03/08/2025 7:45 PM [facility] BUN 10 5 - 25 mg/dL LAB CHEMISTRY METHOD 03/08/2025 7:45 PM [facility] Creatinine 0.87 0.70 - 1.30 mg/dL LAB CHEMISTRY METHOD 03/08/2025 7:45 PM [facility] eGFR 99 >=60 mL/min/1. 73m2 LAB CHEMISTRY METHOD 03/08/2025 7:45 PM [facility] LAB Comment:Calculation based on the Chronic Kidney Disease Epidemiology Collaboration (CKD-EPI) equation refit without adjustment for race. BUN/Creatinine Ratio 11.5 LAB CHEMISTRY METHOD 03/08/2025 7:45 PM [facility] Calcium 9.1 8.5 - 10.5 mg/dL LAB CHEMISTRY METHOD 03/08/2025 7:45 PM [facility] AST (SGOT) 19 10 - 42 unit/L LAB CHEMISTRY METHOD 03/08/2025 7:45 PM [facility] ALT (SGPT) 43 10 - 60 unit/L LAB CHEMISTRY METHOD 03/08/2025 7:45 PM [facility] Alkaline Phosphatase 169(H) 42 - 121 unit/L LAB CHEMISTRY METHOD 03/08/2025 7:45 PM [facility] Total Protein 7.2 6.0 - 8.0 g/dL LAB CHEMISTRY METHOD 03/08/2025 7:45 PM [facility] Albumin 3.7 3.2 - 5.0 g/dL LAB CHEMISTRY METHOD 03/08/2025 7:45 PM [facility] Total Bilirubin 0.2 0.0 - 1.4 mg/dL LAB CHEMISTRY METHOD 03/08/2025 7:45 PM [facility] Blood Venous blood specimen / Unknown Venipuncture / Unknown 03/08/2025 7:09 AM EDT 03/08/2025 11:36 AM EDT Ailyn Stringer MD LAB BLOOD ORDERABLES Fin al Result [facility] LAB [address] [place] [address], * (ABNORMAL) Complete blood count (03/08/2025 7:09 AM EDT) [facility] Signature WBC 7.1 4.8 - 10.8 K/mcL LAB HEMETOLOGY METHOD 03/08/2025 12:49 PM EDT [facility] RBC 4.90 4.50 - 5.50 M/mcL LAB HEMETOLOGY METHOD 03/08/2025 12:49 PM EDT [facility] Hemoglobin 15.5 13.5 - 17.5 g/dL LAB HEMETOLOGY METHOD 03/08/2025 12:49 PM EDT [facility] LAB Hematocrit 45.8 42.0 - 54.0 % LAB HEMETOLOGY METHOD 03/08/2025 12:49 PM EDT [facility] LAB MCV 94.0 79.0 - 98.0 FL LAB HEMETOLOGY METHOD 03/08/2025 12:49 PM EDT [facility] LAB MCH 31.8 27.0 - 32.0 pcg LAB HEMETOLOGY METHOD 03/08/2025 12:49 PM EDT [facility] LAB MCHC 33.8 32.0 - 37.0 g/dL LAB HEMETOLOGY METHOD 03/08/2025 12:49 PM EDT [facility] LAB RDW 12.5 11.0 - 15.0 % LAB HEMETOLOGY METHOD 03/08/2025 12:49 PM EDT [facility] LAB Platelets 275 130 - 400 K/mcL LAB HEMETOLOGY METHOD 03/08/2025 12:49 PM EDT [facility] LAB MPV 11.2(H) 7.0 - 11.0 FL LAB HEMETOLOGY METHOD 03/08/2025 12:49 PM EDT [facility] LAB NRBC 0.0 <1.0 % LAB HEMETOLOGY METHOD 03/08/2025 12:49 PM EDT [facility] LAB NRBC Absolute 0.00 <0.10 K/mcL LAB HEMETOLOGY METHOD 03/08/2025 12:49 PM EDT [facility] LAB Blood Venous blood specimen / Unknown Venipuncture / Unknown 03/08/2025 7:09 AM EDT 03/08/2025 11:22 AM EDT us Ailyn Stringer MD LAB BLOOD ORDERABLES Fin al Result [facility] LAB [address] [place] [address], documented in this encounter Visit Diagnoses Diagnosis Malignant neoplasm of brain, unspecified (CMS/HCC V24, CMS/HCC V28) documented in this encounter Care Teams Production Service Manager Relationship Specialty Start Date End Date Physician, No Pcp PCP - General 11/05/24 documented as of this encounter
--- OUTSIDE RECORDS SUMMARY | 2025-09-07 00:30 | XMS_ITS | Encounter Summary ---
Author Organization [facility] Address [address] [place] [address] Care Team Providers Care Railroad Police Name Role Phone Physician, No Pcp Primary Care Provider Unavaila ble Encounter Details Date Type Department Care Team (Late st Contact Info) Description 11/13/2024 Lab Requisition [facility] - Main Lab 299 [facility] [place] [address] Ailyn Stringer MD [address] [phone] Malignant neoplasm of brain, unspecified (CMS/HCC V24, [...] mmol/L LAB CHEMISTRY METHOD 11/16/2024 12:36 PM [facility] LAB Potassium 3.8 3.5 - 5.5 mmol/L LAB CHEMISTRY METHOD 11/16/2024 12:36 PM [facility] LAB Chloride 108 96 - 110 mmol/L LAB CHEMISTRY METHOD 11/16/2024 12:36 PM [facility] LAB CO2 27 21 - 32 mmol/L LAB CHEMISTRY METHOD 11/16/2024 12:36 PM [facility] LAB Anion Gap 5 3 - 11 LAB CHEMISTRY METHOD 11/16/2024 12:36 PM [facility] Glucose 84 70 - 100 mg/dL LAB CHEMISTRY METHOD 11/16/2024 12:36 PM [facility] BUN 14 5 - 25 mg/dL LAB CHEMISTRY METHOD 11/16/2024 12:36 PM [facility] LAB Creatinine 0.77 0.70 - 1.30 mg/dL LAB CHEMISTRY METHOD 11/16/2024 12:36 PM [facility] LAB eGFR 104 >=60 mL/min/1. 73m2 LAB CHEMISTRY METHOD 11/16/2024 12:36 PM [facility] LAB Comment:Calculation based on the Chronic Kidney Disease Epidemiology Collaboration (CKD-EPI) equation refit without adjustment for race. BUN/Creatinine Ratio 18.2 LAB CHEMISTRY METHOD 11/16/2024 12:36 PM [facility] Calcium 8.9 8.5 - 10.5 mg/dL LAB CHEMISTRY METHOD 11/16/2024 12:36 PM [facility] LAB AST (SGOT) 36 10 - 42 unit/L LAB CHEMISTRY METHOD 11/16/2024 12:36 PM [facility] LAB ALT (SGPT) 90(H) 10 - 60 unit/L LAB CHEMISTRY METHOD 11/16/2024 12:36 PM [facility] LAB Alkaline Phosphatase 102 42 - 121 unit/L LAB CHEMISTRY METHOD 11/16/2024 12:36 PM [facility] LAB Total Protein 6.3 6.0 - 8.0 g/dL LAB CHEMISTRY METHOD 11/16/2024 12:36 PM [facility] Albumin 3.4 3.2 - 5.0 g/dL LAB CHEMISTRY METHOD 11/16/2024 12:36 PM [facility] Total Bilirubin 0.3 0.0 - 1.4 mg/dL LAB CHEMISTRY METHOD 11/16/2024 12:36 PM [facility] LAB Blood Venous blood specimen / Unknown Venipuncture / Unknown 11/16/2024 6:33 AM EST 11/16/2024 10:58 AM EST us Ailyn Stringer MD LAB BLOOD ORDERABLES Fin al Result [facility] [address] [place] [address], * (ABNORMAL) Complete blood count (11/16/2024 6:33 AM EST) [facility] WBC 6.0 4.8 - 10.8 K/mcL LAB HEMETOLOGY METHOD 11/16/2024 11:56 AM [facility] RBC 4.10(L) 4.50 - 5.50 M/mcL LAB HEMETOLOGY METHOD 11/16/2024 11:56 AM [facility] LAB Hemoglobin 13.3(L) 13.5 - 17.5 g/dL LAB HEMETOLOGY METHOD 11/16/2024 11:56 AM [facility] LAB Hematocrit 40.2(L) 42.0 - 54.0 % LAB HEMETOLOGY METHOD 11/16/2024 11:56 AM [facility] LAB MCV 98.8(H) 79.0 - 98.0 FL LAB HEMETOLOGY METHOD 11/16/2024 11:56 AM [facility] LAB MCH 32.7(H) 27.0 - 32.0 pcg LAB HEMETOLOGY METHOD 11/16/2024 11:56 AM [facility] LAB MCHC 33.1 32.0 - 37.0 g/dL LAB HEMETOLOGY METHOD 11/16/2024 11:56 AM [facility] LAB RDW 13.3 11.0 - 15.0 % LAB HEMETOLOGY METHOD 11/16/2024 11:56 AM [facility] LAB Platelets 246 130 - 400 K/mcL LAB HEMETOLOGY METHOD 11/16/2024 11:56 AM [facility] LAB MPV 10.7 7.0 - 11.0 FL LAB HEMETOLOGY METHOD 11/16/2024 11:56 AM [facility] LAB NRBC 0.0 <1.0 % LAB HEMETOLOGY METHOD 11/16/2024 11:56 AM EST [facility] LAB NRBC Absolute 0.00 <0.10 K/[facility] LAB HEMETOLOGY METHOD 11/16/2024 11:56 AM EST [facility] LAB Blood Venous blood specimen / Unknown Venipuncture / Unknown 11/16/2024 6:33 AM EST 11/16/2024 10:58 AM EST us Ailyn Stringer MD LAB BLOOD ORDERABLES Fin al Result [facility] [address] [place] [address], documented in this encounter Visit Diagnoses Diagnosis Malignant neoplasm of brain, unspecified (CMS/HCC V24, CMS/HCC V28) documented in this encounter Care Teams Railroad Police Relationship Specialty Start Date End Date Physician, No Pcp PCP - General 11/05/24 documented as of this encounter
--- OUTSIDE RECORDS SUMMARY | 2025-09-07 00:30 | XMS_ITS | Encounter Summary ---
Author Organization [facility] Address [address] [place] [address] Care Team Providers Care Steel Floor Pan Placing Supervisor Name Role Phone Physician, No Pcp Primary Care Provider Unavaila ble Encounter Details Date Type Department Care Team (Late st Contact Info) Description 01/10/2025 Lab Requisition [facility] - Main Lab 299 [facility] [place] [address] Ailyn Stringer MD [address] [phone] Malignant neoplasm of brain, unspecified (CMS/HCC V24, [...] LAB CHEMISTRY METHOD 01/11/2025 1:42 PM EST [facility] Blood Venous blood specimen / Unknown Venipuncture / Unknown 01/11/2025 9:19 AM EST 01/11/2025 11:15 AM EST us Ailyn Stringer MD LAB BLOOD ORDERABLES Fin al Result [facility] [address] [place] [address], * (ABNORMAL) Comprehensive metabolic panel (01/11/2025 9:19 AM EST) Sodium 138 133 - 145 mmol/L LAB CHEMISTRY METHOD 01/11/2025 1:42 PM [facility] Potassium 3.5 3.5 - 5.5 mmol/L LAB CHEMISTRY METHOD 01/11/2025 1:42 PM [facility] Chloride 103 96 - 110 mmol/L LAB CHEMISTRY METHOD 01/11/2025 1:42 PM [facility] CO2 26 21 - 32 mmol/L LAB CHEMISTRY METHOD 01/11/2025 1:42 PM [facility] Anion Gap 9 3 - 11 LAB CHEMISTRY METHOD 01/11/2025 1:42 PM [facility] Glucose 150(H) 70 - 100 mg/dL LAB CHEMISTRY METHOD 01/11/2025 1:42 PM [facility] BUN 14 5 - 25 mg/dL LAB CHEMISTRY METHOD 01/11/2025 1:42 PM [facility] Creatinine 0.73 0.70 - 1.30 mg/dL LAB CHEMISTRY METHOD 01/11/2025 1:42 PM [facility] LAB eGFR 105 >=60 mL/min/1. 73m2 LAB CHEMISTRY METHOD 01/11/2025 1:42 PM [facility] LAB Comment:Calculation based on the Chronic Kidney Disease Epidemiology Collaboration (CKD-EPI) equation refit without adjustment for race. BUN/Creatinine Ratio 19.2 LAB CHEMISTRY METHOD 01/11/2025 1:42 PM [facility] Calcium 8.9 8.5 - 10.5 mg/dL LAB CHEMISTRY METHOD 01/11/2025 1:42 PM [facility] AST (SGOT) 16 10 - 42 unit/L LAB CHEMISTRY METHOD 01/11/2025 1:42 PM [facility] ALT (SGPT) 53 10 - 60 unit/L LAB CHEMISTRY METHOD 01/11/2025 1:42 PM [facility] Alkaline Phosphatase 114 42 - 121 unit/L LAB CHEMISTRY METHOD 01/11/2025 1:42 PM EST [facility] Total Protein 6.7 6.0 - 8.0 g/dL LAB CHEMISTRY METHOD 01/11/2025 1:42 PM EST [facility] Albumin 3.5 3.2 - 5.0 g/dL LAB CHEMISTRY METHOD 01/11/2025 1:42 PM EST [facility] Total Bilirubin 0.2 0.0 - 1.4 mg/dL LAB CHEMISTRY METHOD 01/11/2025 1:42 PM [facility] Blood Venous blood specimen / Unknown Venipuncture / Unknown 01/11/2025 9:19 AM EST 01/11/2025 11:15 AM EST us Ailyn Stringer MD LAB BLOOD ORDERABLES Fin al Result [facility] [address] [place] [address], * (ABNORMAL) Complete blood count (01/11/2025 9:19 AM EST) WBC 8.9 4.8 - 10.8 K/mcL LAB HEMETOLOGY METHOD 01/11/2025 1:20 PM [facility] RBC 4.70 4.50 - 5.50 M/mcL LAB HEMETOLOGY METHOD 01/11/2025 1:20 PM [facility] Hemoglobin 15.3 13.5 - 17.5 g/dL LAB HEMETOLOGY METHOD 01/11/2025 1:20 PM [facility] Hematocrit 45.5 42.0 - 54.0 % LAB HEMETOLOGY METHOD 01/11/2025 1:20 PM [facility] MCV 96.8 79.0 - 98.0 FL LAB HEMETOLOGY METHOD 01/11/2025 1:20 PM EST [facility] MCH 32.6(H) 27.0 - 32.0 pcg LAB HEMETOLOGY METHOD 01/11/2025 1:20 PM EST [facility] MCHC 33.6 32.0 - 37.0 g/dL LAB HEMETOLOGY METHOD 01/11/2025 1:20 PM EST [facility] RDW 12.4 11.0 - 15.0 % LAB HEMETOLOGY METHOD 01/11/2025 1:20 PM EST [facility] Platelets 281 130 - 400 K/mcL LAB HEMETOLOGY METHOD 01/11/2025 1:20 PM EST [facility] MPV 10.6 7.0 - 11.0 FL LAB HEMETOLOGY METHOD 01/11/2025 1:20 PM [facility] NRBC 0.0 <1.0 % LAB HEMETOLOGY METHOD 01/11/2025 1:20 PM [facility] NRBC Absolute 0.00 <0.10 K/mcL LAB HEMETOLOGY METHOD 01/11/2025 1:20 PM [facility] Blood Venous blood specimen / Unknown Venipuncture / Unknown 01/11/2025 9:19 AM EST 01/11/2025 11:15 AM EST us Ailyn Stringer MD LAB BLOOD ORDERABLES Fin al Result [facility] [address] [place] [address], documented in this encounter Visit Diagnoses Diagnosis Malignant neoplasm of brain, unspecified (CMS/HCC V24, CMS/HCC V28) Encounter for therapeutic drug level monitoring documented in this encounter Care Teams Steel Floor Pan Placing Supervisor Relationship Specialty Start Date End Date Physician, No Pcp PCP - General 11/05/24 documented as of this encounter
--- OUTSIDE RECORDS SUMMARY | 2025-09-07 00:30 | XMS_ITS | Encounter Summary ---
Author Organization [facility] Address [address] [place] [address] Care Team Providers Care Blank Driller Name Role Phone Physician, No Pcp Primary Care Provider Unavaila ble Encounter Details Date Type Department Care Team (Late st Contact Info) Description 02/26/2025 Lab Requisition [facility] - Main Lab 299 [facility] [place] [address] Ailyn Stringer MD [address] [phone] Other seizures (CMS/HCC V24, CMS/HCC V28) Social [...] LAB CHEMISTRY METHOD 02/26/2025 10:20 AM EDT [facility] Blood Venous blood specimen / Unknown Venipuncture / Unknown 02/26/2025 5:06 AM EDT 02/26/2025 9:26 AM EDT us Ailyn Stringer MD LAB BLOOD ORDERABLES Fin al Result [facility] [address] [place] [address], documented in this encounter Visit Diagnoses Diagnosis Other seizures (CMS/HCC V24, CMS/HCC V28) documented in this encounter Care Teams Blank Driller Relationship Specialty Start Date End Date Physician, No Pcp PCP - General 11/05/24 documented as of this encounter
--- OUTSIDE RECORDS SUMMARY | 2025-09-07 00:30 | XMS_ITS | Encounter Summary ---
Author Organization [facility] Address [address] [place] [address] Care Team Providers Care Seat Scooper Machine Name Role Phone Physician, No Pcp Primary Care Provider Unavaila ble Encounter Details Date Type Department Care Team (Late st Contact Info) Description 02/20/2025 Lab Requisition [facility] - Main Lab 299 [facility] [place] [address] Ailyn Stringer MD [address] [phone] Malignant neoplasm of brain, unspecified (CMS/HCC V24, [...] AM EDT Malignant neoplasm of brain, unspecified ([facility]/HCC V24, CMS/HCC V28) COMPREHENSIVE METABOLIC PANEL Routine 02/22/2025 7:41 AM EDT Malignant neoplasm of brain, unspecified ([facility]/HCC V24, CMS/HCC V28) documented in this encounter Results * (ABNORMAL) Comprehensive metabolic panel (02/22/2025 7:41 AM EDT) Sodium 134 133 - 145 mmol/L LAB CHEMISTRY METHOD 02/22/2025 11:44 AM [facility] Potassium 3.8 3.5 - 5.5 mmol/L LAB CHEMISTRY METHOD 02/22/2025 11:44 AM [facility] Chloride 103 96 - 110 mmol/L LAB CHEMISTRY METHOD 02/22/2025 11:44 AM [facility] CO2 21 21 - 32 mmol/L LAB CHEMISTRY METHOD 02/22/2025 11:44 AM [facility] Anion Gap 10 3 - 11 LAB CHEMISTRY METHOD 02/22/2025 11:44 AM [facility] Glucose 273(H) 70 - 100 mg/dL LAB CHEMISTRY METHOD 02/22/2025 11:44 AM [facility] BUN 11 5 - 25 mg/dL LAB CHEMISTRY METHOD 02/22/2025 11:44 AM [facility] Creatinine 0.75 0.70 - 1.30 mg/dL LAB CHEMISTRY METHOD 02/22/2025 11:44 AM [facility] LAB eGFR 104 >=60 mL/min/1. 73m2 LAB CHEMISTRY METHOD 02/22/2025 11:44 AM [facility] Comment:Calculation based on the Chronic Kidney Disease Epidemiology Collaboration (CKD-EPI) equation refit without adjustment for race. BUN/Creatinine Ratio 14.7 LAB CHEMISTRY METHOD 02/22/2025 11:44 AM [facility] Calcium 8.9 8.5 - 10.5 mg/dL LAB CHEMISTRY METHOD 02/22/2025 11:44 AM [facility] AST (SGOT) 13 10 - 42 unit/L LAB CHEMISTRY METHOD 02/22/2025 11:44 AM [facility] ALT (SGPT) 34 10 - 60 unit/L LAB CHEMISTRY METHOD 02/22/2025 11:44 AM [facility] Alkaline Phosphatase 157(H) 42 - 121 unit/L LAB CHEMISTRY METHOD 02/22/2025 11:44 AM [facility] Total Protein 6.9 6.0 - 8.0 g/dL LAB CHEMISTRY METHOD 02/22/2025 11:44 AM [facility] Albumin 3.4 3.2 - 5.0 g/dL LAB CHEMISTRY METHOD 02/22/2025 11:44 AM [facility] Total Bilirubin 0.3 0.0 - 1.4 mg/dL LAB CHEMISTRY METHOD 02/22/2025 11:44 AM [facility] Blood Venous blood specimen / Unknown Venipuncture / Unknown 02/22/2025 7:41 AM EDT 02/22/2025 10:48 AM EDT Ailyn Stringer MD LAB BLOOD ORDERABLES Fin al Result [facility] [address] [place] [address], * (ABNORMAL) Complete blood count (02/22/2025 7:41 AM EDT) WBC 7.4 4.8 - 10.8 K/mcL LAB HEMETOLOGY METHOD 02/22/2025 11:17 AM EDT [facility] RBC 4.70 4.50 - 5.50 M/mcL LAB HEMETOLOGY METHOD 02/22/2025 11:17 AM EDT [facility] Hemoglobin 15.0 13.5 - 17.5 g/dL LAB HEMETOLOGY METHOD 02/22/2025 11:17 AM EDT [facility] Hematocrit 43.7 42.0 - 54.0 % LAB HEMETOLOGY METHOD 02/22/2025 11:17 AM EDT [facility] MCV 93.8 79.0 - 98.0 FL LAB HEMETOLOGY METHOD 02/22/2025 11:17 AM EDT [facility] MCH 32.2(H) 27.0 - 32.0 pcg LAB HEMETOLOGY [facility] M[facility]C 34.3 32.0 - 37.0 g/dL LAB HEMETOLOGY METHOD 02/22/2025 11:17 AM EDT [facility] RDW 12.4 11.0 - 15.0 % LAB HEMETOLOGY METHOD 02/22/2025 11:17 AM EDT [facility] Platelets 279 130 - 400 K/mcL LAB HEMETOLOGY METHOD 02/22/2025 11:17 AM EDT [facility] MPV 11.6(H) 7.0 - 11.0 FL LAB HEMETOLOGY METHOD 02/22/2025 11:17 AM EDT [facility] NRBC 0.0 <1.0 % LAB HEMETOLOGY METHOD 02/22/2025 11:17 AM EDT [facility] NRBC Absolute 0.00 <0.10 K/mcL LAB HEMETOLOGY METHOD 02/22/2025 11:17 AM EDT [facility] Blood Venous blood specimen / Unknown Venipuncture / Unknown 02/22/2025 7:41 AM EDT 02/22/2025 10:48 AM EDT us Ailyn Stringer MD LAB BLOOD ORDERABLES Fin al Result [facility] [address] [place] [address], documented in this encounter Visit Diagnoses Diagnosis Malignant neoplasm of brain, unspecified (CMS/HCC V24, CMS/HCC V28) documented in this encounter Care Teams Seat Scooper Machine Relationship Specialty Start Date End Date Physician, No Pcp PCP - General 11/05/24 documented as of this encounter
--- OUTSIDE RECORDS SUMMARY | 2025-09-07 00:30 | XMS_ITS | Encounter Summary ---
Author Organization [facility] Address [address] [place] [address] Care Team Providers Care Test Tech Name Role Phone Physician, No Pcp Primary Care Provider Unavaila ble Encounter Details Date Type Department Care Team (Late st Contact Info) Description 02/07/2025 Lab Requisition [facility] - Main Lab 299 [facility] [place] [address] Ailyn Stringer MD [address] [phone] Malignant neoplasm of brain, unspecified (CMS/HCC V24, [...] V28) documented in this encounter Care Teams Test Tech Relationship Specialty Start Date End Date Physician, No Pcp PCP - General 11/05/24 documented as of this encounter
--- OUTSIDE RECORDS SUMMARY | 2025-09-07 00:30 | XMS_ITS | Encounter Summary ---
Author Organization [facility] Address [address] [place] [address] Care Team Providers Care Instrumental Music Teacher Name Role Phone Physician, No Pcp Primary Care Provider Unavaila ble Encounter Details Date Type Department Care Team (Late st Contact Info) Description 11/12/2024 Lab Requisition [facility] - Main Lab 299 [facility] [place] [address] Ailyn Stringer MD [address] [phone] Other seizures (CMS/HCC V24, CMS/HCC V28) Social [...] Routine 11/12/2024 4:48 AM EST Other seizures ([facility]/HCC) documented in this encounter Results * (ABNORMAL) Comprehensive metabolic panel (11/12/2024 4:48 AM EST) Sodium 139 133 - 145 mmol/L LAB CHEMISTRY METHOD 11/12/2024 11:09 AM [facility] Potassium 4.2 3.5 - 5.5 mmol/L LAB CHEMISTRY METHOD 11/12/2024 11:09 AM [facility] Chloride 108 96 - 110 mmol/L LAB CHEMISTRY METHOD 11/12/2024 11:09 AM [facility] CO2 28 21 - 32 mmol/L LAB CHEMISTRY METHOD 11/12/2024 11:09 AM [facility] Anion Gap 3 3 - 11 LAB CHEMISTRY METHOD 11/12/2024 11:09 AM [facility] Glucose 82 70 - 100 mg/dL LAB CHEMISTRY METHOD 11/12/2024 11:09 AM [facility] BUN 14 5 - 25 mg/dL LAB CHEMISTRY METHOD 11/12/2024 11:09 AM [facility] Creatinine 0.76 0.70 - 1.30 mg/dL LAB CHEMISTRY METHOD 11/12/2024 11:09 AM [facility] eGFR 104 >=60 mL/min/1. 73m2 LAB CHEMISTRY METHOD 11/12/2024 11:09 AM [facility] Comment:Calculation based on the Chronic Kidney Disease Epidemiology Collaboration (CKD-EPI) equation refit without adjustment for race. BUN/Creatinine Ratio 18.4 LAB CHEMISTRY METHOD 11/12/2024 11:09 AM [facility] Calcium 8.2(L) 8.5 - 10.5 mg/dL LAB CHEMISTRY METHOD 11/12/2024 11:09 AM [facility] AST (SGOT) 33 10 - 42 unit/L LAB CHEMISTRY METHOD 11/12/2024 11:09 AM [facility] ALT (SGPT) 68(H) 10 - 60 unit/L LAB CHEMISTRY METHOD 11/12/2024 11:09 AM [facility] Alkaline Phosphatase 108 42 - 121 unit/L LAB CHEMISTRY METHOD 11/12/2024 11:09 AM [facility] Total Protein 6.0 6.0 - 8.0 g/dL LAB CHEMISTRY METHOD 11/12/2024 11:09 AM [facility] Albumin 3.2 3.2 - 5.0 g/dL LAB CHEMISTRY METHOD 11/12/2024 11:09 AM [facility] Total Bilirubin 0.2 0.0 - 1.4 mg/dL LAB CHEMISTRY METHOD 11/12/2024 11:09 AM [facility] Blood Venous blood specimen / Unknown Venipuncture / Unknown 11/12/2024 4:48 AM EST 11/12/2024 10:06 AM EST us Ailyn Stringer MD LAB BLOOD ORDERABLES Fin al Result [facility] [address] [place] [address], * (ABNORMAL) Complete blood count (11/12/2024 4:48 AM EST) [facility] WBC 6.8 4.8 - 10.8 K/mcL LAB HEMETOLOGY METHOD 11/12/2024 10:28 AM [facility] RBC 4.00(L) 4.50 - 5.50 M/mcL LAB HEMETOLOGY METHOD 11/12/2024 10:28 AM [facility] Hemoglobin 12.9(L) 13.5 - 17.5 g/dL LAB HEMETOLOGY METHOD 11/12/2024 10:28 AM [facility] Hematocrit 39.0(L) 42.0 - 54.0 % LAB HEMETOLOGY METHOD 11/12/2024 10:28 AM [facility] MCV 98.5(H) 79.0 - 98.0 FL LAB HEMETOLOGY METHOD 11/12/2024 10:28 AM [facility] MCH 32.6(H) 27.0 - 32.0 pcg LAB HEMETOLOGY METHOD 11/12/2024 10:28 AM [facility] MCHC 33.1 32.0 - 37.0 g/dL LAB HEMETOLOGY METHOD 11/12/2024 10:28 AM [facility] RDW 13.2 11.0 - 15.0 % LAB HEMETOLOGY METHOD 11/12/2024 10:28 AM [facility] Platelets 234 130 - 400 K/mcL LAB HEMETOLOGY METHOD 11/12/2024 10:28 AM [facility] MPV 11.0 7.0 - 11.0 FL LAB HEMETOLOGY METHOD 11/12/2024 10:28 AM [facility] NRBC 0.0 <1.0 % LAB HEMETOLOGY METHOD 11/12/2024 10:28 AM [facility] NRBC Absolute 0.00 <0.10 K/mcL LAB HEMETOLOGY METHOD 11/12/2024 10:28 AM EST [facility] Blood Venous blood specimen / Unknown Venipuncture / Unknown 11/12/2024 4:48 AM EST 11/12/2024 10:06 AM EST us Ailyn Stringer MD LAB BLOOD ORDERABLES Fin al Result [facility] [address] [place] [address], documented in this encounter Visit Diagnoses Diagnosis Other seizures (CMS/HCC V24, CMS/HCC V28) documented in this encounter Care Teams Instrumental Music Teacher Relationship Specialty Start Date End Date Physician, No Pcp PCP - General 11/05/24 documented as of this encounter
--- OUTSIDE RECORDS SUMMARY | 2025-09-07 00:30 | XMS_ITS | Encounter Summary ---
Author Organization [facility] Address [address] [place] [address] Care Team Providers Care Architectural Project Captain Name Role Phone Physician, No Pcp Primary Care Provider Unavaila ble Encounter Details Date Type Department Care Team (Late st Contact Info) Description 02/13/2025 Lab Requisition [facility] - Main Lab 299 [facility] [place] [address] Ailyn Stringer MD [address] [phone] Malignant neoplasm of brain, unspecified (CMS/HCC V24, [...] mmol/L LAB CHEMISTRY METHOD 02/15/2025 1:08 PM [facility] Potassium 3.9 3.5 - 5.5 mmol/L LAB CHEMISTRY METHOD 02/15/2025 1:08 PM [facility] Chloride 107 96 - 110 mmol/L LAB CHEMISTRY METHOD 02/15/2025 1:08 PM [facility] CO2 22 21 - 32 mmol/L LAB CHEMISTRY METHOD 02/15/2025 1:08 PM [facility] Anion Gap 9 3 - 11 LAB CHEMISTRY METHOD 02/15/2025 1:08 PM [facility] Glucose 291(H) 70 - 100 mg/dL LAB CHEMISTRY METHOD 02/15/2025 1:08 PM [facility] BUN 19 5 - 25 mg/dL LAB CHEMISTRY METHOD 02/15/2025 1:08 PM [facility] Creatinine 0.70 0.70 - 1.30 mg/dL LAB CHEMISTRY METHOD 02/15/2025 1:08 PM [facility] eGFR 106 >=60 mL/min/1. 73m2 LAB CHEMISTRY METHOD 02/15/2025 1:08 PM [facility] Comment:Calculation based on the Chronic Kidney Disease Epidemiology Collaboration (CKD-EPI) equation refit without adjustment for race. BUN/Creatinine Ratio 27.1 LAB CHEMISTRY METHOD 02/15/2025 1:08 PM [facility] Calcium 9.0 8.5 - 10.5 mg/dL LAB CHEMISTRY METHOD 02/15/2025 1:08 PM [facility] AST (SGOT) 10 10 - 42 unit/L LAB CHEMISTRY METHOD 02/15/2025 1:08 PM [facility] ALT (SGPT) 35 10 - 60 unit/L LAB CHEMISTRY METHOD 02/15/2025 1:08 PM [facility] Alkaline Phosphatase 163(H) 42 - 121 unit/L LAB CHEMISTRY METHOD 02/15/2025 1:08 PM [facility] Total Protein 6.7 6.0 - 8.0 g/dL LAB CHEMISTRY METHOD 02/15/2025 1:08 PM [facility] Albumin 3.3 3.2 - 5.0 g/dL LAB CHEMISTRY METHOD 02/15/2025 1:08 PM [facility] Total Bilirubin 0.2 0.0 - 1.4 mg/dL LAB CHEMISTRY METHOD 02/15/2025 1:08 PM [facility] Blood Venous blood specimen / Unknown Venipuncture / Unknown 02/15/2025 7:42 AM EDT 02/15/2025 10:14 AM EDT us Ailyn Stringer MD LAB BLOOD ORDERABLES Fin al Result [facility] [address] [place] [address], * (ABNORMAL) Complete blood count (02/15/2025 7:42 AM EDT) WBC 8.8 4.8 - 10.8 K/mcL LAB HEMETOLOGY METHOD 02/15/2025 11:41 AM EDT [facility] RBC 4.60 4.50 - 5.50 M/[facility] LAB HEMETOLOGY METHOD 02/15/2025 11:41 AM EDT [facility] Hemoglobin 14.8 13.5 - 17.5 g/dL LAB HEMETOLOGY METHOD 02/15/2025 11:41 AM [facility] Hematocrit 43.1 42.0 - 54.0 % LAB [facility]EMETOLOGY [facility] MCV 93.7 79.0 - 98.0 FL LAB HEMETOLOGY METHOD [facility] MCH 32.2(H) 27.0 - 32.0 pcg LAB HEMETOLOGY METHOD 02/15/2025 11:41 AM [facility] MCHC 34.3 32.0 - 37.0 g/dL LAB HEMETOLOGY METHOD 02/15/2025 11:41 AM EDT [facility] RDW 12.5 11.0 - 15.0 % LAB HEMETOLOGY METHOD [facility] Platelets 268 130 - 400 K/mcL LAB HEMETOLOGY METHOD 02/15/2025 11:41 AM [facility] MPV 11.3(H) 7.0 - 11.0 FL LAB HEMETOLOGY METHOD 02/15/2025 11:41 AM EDT [facility] NRBC 0.0 <1.0 % LAB HEMETOLOGY METHOD 02/15/2025 11:41 AM EDT [facility] NRBC Absolute 0.00 <0.10 K/mcL LAB HEMETOLOGY METHOD 02/15/2025 11:41 AM EDT [facility] Blood Venous blood specimen / Unknown Venipuncture / Unknown 02/15/2025 7:42 AM EDT 02/15/2025 10:14 AM EDT us Ailyn Stringer MD LAB BLOOD ORDERABLES Fin al Result [facility] [address] [place] [address], documented in this encounter Visit Diagnoses Diagnosis Malignant neoplasm of brain, unspecified (CMS/HCC V24, CMS/HCC V28) documented in this encounter Care Teams Architectural Project Captain Relationship Specialty Start Date End Date Physician, No Pcp PCP - General 11/05/24 documented as of this encounter
--- OUTSIDE RECORDS SUMMARY | 2025-09-07 00:30 | XMS_ITS | Encounter Summary ---
Author Organization [facility] Address [address] [place] [address] Care Team Providers Care Dog Licenser Name Role Phone Physician, No Pcp Primary Care Provider Unavaila ble Encounter Details Date Type Department Care Team (Late st Contact Info) Description 11/20/2024 Lab Requisition [facility] - Main Lab 299 [facility] [place] [address] Ailyn Stringer MD [address] [phone] Malignant neoplasm of brain, unspecified (CMS/HCC V24, [...] Assessment Author Yes 11/06/2024 6:22 AM Jigna Cháevz RN * Do you have serious difficulty [...] mmol/L LAB CHEMISTRY METHOD 11/23/2024 10:[address] [facility] Potassium 3.6 3.5 - 5.5 mmol/L LAB CHEMISTRY METHOD 11/23/2024 10:[address] [facility] Chloride 108 96 - 110 mmol/L LAB CHEMISTRY METHOD 11/23/2024 10:[address] [facility] CO2 24 21 - 32 mmol/L LAB CHEMISTRY METHOD 11/23/2024 10:[address] [facility] Anion Gap 7 3 - 11 LAB CHEMISTRY METHOD 11/23/2024 10:[address] [facility] Glucose 170(H) 70 - 100 mg/dL LAB CHEMISTRY METHOD 11/23/2024 10:[address] [facility] BUN 14 5 - 25 mg/dL LAB CHEMISTRY METHOD 11/23/2024 10:[address] [facility] Creatinine 0.71 0.70 - 1.30 mg/dL LAB CHEMISTRY METHOD 11/23/2024 10:[address] [facility] eGFR 106 >=60 mL/min/1. 73m2 LAB CHEMISTRY METHOD 11/23/2024 10:[address] [facility] Comment:Calculation based on the Chronic Kidney Disease Epidemiology Collaboration (CKD-EPI) equation refit without adjustment for race. BUN/Creatinine Ratio 19.7 LAB CHEMISTRY METHOD 11/23/2024 10:[address] [facility] Calcium 8.5 8.5 - 10.5 mg/dL LAB CHEMISTRY METHOD 11/23/2024 10:[address] [facility] AST (SGOT) 19 10 - 42 unit/L LAB CHEMISTRY METHOD 11/23/2024 10:[address] [facility] ALT (SGPT) 72(H) 10 - 60 unit/L LAB CHEMISTRY METHOD 11/23/2024 10:[address] [facility] Alkaline Phosphatase 100 42 - 121 unit/L LAB CHEMISTRY METHOD 11/23/2024 10:[address] [facility] Total Protein 6.0 6.0 - 8.0 g/dL LAB CHEMISTRY METHOD 11/23/2024 10:[address] [facility] Albumin 3.3 3.2 - 5.0 g/dL LAB CHEMISTRY METHOD 11/23/2024 10:[address] [facility] Total Bilirubin 0.2 0.0 - 1.4 mg/dL LAB CHEMISTRY METHOD 11/23/2024 10:[address] [facility] Blood Venous blood specimen / Unknown Venipuncture / Unknown 11/23/2024 7:06 AM EST 11/23/2024 9:35 AM EST us Ailyn Stringer MD LAB BLOOD ORDERABLES Fin al Result [facility] [address] [place] [address], * (ABNORMAL) Complete blood count (11/23/2024 7:06 AM EST) [facility] WBC 6.0 4.8 - 10.8 K/mcL LAB HEMETOLOGY METHOD 11/23/2024 9:[address] [facility] RBC 4.10(L) 4.50 - 5.50 M/mcL LAB HEMETOLOGY METHOD 11/23/2024 9:[address] [facility] Hemoglobin 13.3(L) 13.5 - 17.5 g/dL LAB HEMETOLOGY METHOD 11/23/2024 9:[address] [facility] Hematocrit 40.5(L) 42.0 - 54.0 % LAB HEMETOLOGY METHOD 11/23/2024 9:[address] [facility] MCV 99.0(H) 79.0 - 98.0 FL LAB HEMETOLOGY METHOD 11/23/2024 9:[address] [facility] MCH 32.5(H) 27.0 - 32.0 pcg LAB HEMETOLOGY METHOD 11/23/2024 9:[address] [facility] MCHC 32.8 32.0 - 37.0 g/dL LAB HEMETOLOGY METHOD 11/23/2024 9:[address] [facility] RDW 13.0 11.0 - 15.0 % LAB HEMETOLOGY METHOD 11/23/2024 9:[address] [facility] Platelets 228 130 - 400 K/mcL LAB HEMETOLOGY METHOD 11/23/2024 9:[address] [facility] MPV 10.9 7.0 - 11.0 FL LAB HEMETOLOGY METHOD 11/23/2024 9:[address] [facility] NRBC 0.0 <1.0 % LAB HEMETOLOGY METHOD 11/23/2024 9:58 AM EST [facility] NRBC Absolute 0.00 <0.10 K/mcL LAB HEMETOLOGY METHOD 11/23/2024 9:58 AM EST [facility] Blood Venous blood specimen / Unknown Venipuncture / Unknown 11/23/2024 7:06 AM EST 11/23/2024 9:35 AM EST us Ailyn Stringer MD LAB BLOOD ORDERABLES Fin al Result [facility] [address] [place] [address], documented in this encounter Visit Diagnoses Diagnosis Malignant neoplasm of brain, unspecified (CMS/HCC V24, CMS/HCC V28) documented in this encounter Care Teams Dog Licenser Relationship Specialty Start Date End Date Physician, No Pcp PCP - General 11/05/24 documented as of this encounter
--- OUTSIDE RECORDS SUMMARY | 2025-09-07 00:30 | XMS_ITS | Encounter Summary ---
Author Organization [facility] Address [address] [place] [address] Care Team Providers Care J2Ee Java Developer Name Role Phone Physician, No Pcp Primary Care Provider Unavaila ble Encounter Details Date Type Department Care Team (Late st Contact Info) Description 01/30/2025 Lab Requisition [facility] - Main Lab 299 [facility] [place] [address] Ailyn Stringer MD [address] [phone] Malignant neoplasm of brain, unspecified (CMS/HCC V24, [...] mmol/L LAB CHEMISTRY METHOD 02/01/2025 12:29 PM [facility] Potassium 3.4(L) 3.5 - 5.5 mmol/L LAB CHEMISTRY METHOD 02/01/2025 12:29 PM [facility] Chloride 101 96 - 110 mmol/L LAB CHEMISTRY METHOD 02/01/2025 12:29 PM [facility] CO2 25 21 - 32 mmol/L LAB CHEMISTRY METHOD 02/01/2025 12:29 PM [facility] Anion Gap 10 3 - 11 LAB CHEMISTRY METHOD 02/01/2025 12:29 PM [facility] Glucose 355(H) 70 - 100 mg/dL LAB CHEMISTRY METHOD 02/01/2025 12:29 PM [facility] BUN 13 5 - 25 mg/dL LAB CHEMISTRY METHOD 02/01/2025 12:29 PM [facility] Creatinine 0.90 0.70 - 1.30 mg/dL LAB CHEMISTRY METHOD 02/01/2025 12:29 PM [facility] eGFR 98 >=60 mL/min/1. 73m2 LAB CHEMISTRY METHOD 02/01/2025 12:29 PM [facility] Comment:Calculation based on the Chronic Kidney Disease Epidemiology Collaboration (CKD-EPI) equation refit without adjustment for race. BUN/Creatinine Ratio 14.4 LAB CHEMISTRY METHOD 02/01/2025 12:29 PM [facility] Calcium 8.9 8.5 - 10.5 mg/dL LAB CHEMISTRY METHOD 02/01/2025 12:29 PM [facility] AST (SGOT) 17 10 - 42 unit/L LAB CHEMISTRY METHOD 02/01/2025 12:29 PM [facility] ALT (SGPT) 46 10 - 60 unit/L LAB CHEMISTRY METHOD 02/01/2025 12:29 PM [facility] Alkaline Phosphatase 154(H) 42 - 121 unit/L LAB CHEMISTRY METHOD 02/01/2025 12:29 PM [facility] Total Protein 7.0 6.0 - 8.0 g/dL LAB CHEMISTRY METHOD 02/01/2025 12:29 PM [facility] Albumin 3.5 3.2 - 5.0 g/dL LAB CHEMISTRY METHOD 02/01/2025 12:29 PM [facility] Total Bilirubin 0.2 0.0 - 1.4 mg/dL LAB CHEMISTRY METHOD 02/01/2025 12:29 PM [facility] Blood Venous blood specimen / Unknown Venipuncture / Unknown 02/01/2025 9:30 AM EDT 02/01/2025 10:53 AM EDT us Ailyn Stringer MD LAB BLOOD ORDERABLES Fin al Result [facility] [address] [place] [address], * (ABNORMAL) Complete blood count (02/01/2025 9:30 AM EDT) [facility] WBC 8.9 4.8 - 10.8 K/mcL LAB [...] FL LAB HEMETOLOGY METHOD 02/01/2025 11:47 AM [facility] MCH 32.3(H) 27.0 - 32.0 pcg LAB HEMETOLOGY METHOD [facility] MCHC 34.4 32.0 - 37.0 g/dL LAB HEMETOLOGY METHOD 02/01/2025 11:47 AM EDT [facility] RDW 12.5 11.0 - 15.0 % LAB HEMETOLOGY METHOD 02/01/2025 11:47 AM EDT [facility] Platelets 263 130 - 400 K/mcL LAB HEMETOLOGY METHOD 02/01/2025 11:47 AM T [facility] MPV [...] [facility] [address] [place] [address], documented in this encounter Visit Diagnoses Diagnosis Malignant neoplasm of brain, unspecified (CMS/HCC V24, CMS/HCC V28) documented in this encounter Care Teams J2Ee Java Developer Relationship Specialty Start Date End Date Physician, No Pcp PCP - General 11/05/24 documented as of this encounter
--- OUTSIDE RECORDS SUMMARY | 2025-09-07 00:31 | XMS_ITS | Encounter Summary ---
Author Organization [facility] Address [address] [place] [address] Care Team Providers Care Rose Grower Name Role Phone Physician, No Pcp Primary Care Provider Unavaila ble Encounter Details Date Type Department Care Team (Late st Contact Info) Description 01/05/2025 Lab Requisition [facility] - Main Lab 299 [facility] [place] [address] Ailyn Stringer MD [address] [phone] Encounter for therapeutic drug level monitoring Social [...] LAB CHEMISTRY METHOD 01/05/2025 11:39 AM EST [facility] Blood Venous blood specimen / Unknown Venipuncture / Unknown 01/05/2025 5:20 AM EST 01/05/2025 8:26 AM EST us Ailyn Stringer MD LAB BLOOD ORDERABLES Fin al Result [facility] [address] [place] [address], documented in this encounter Visit Diagnoses Diagnosis Encounter for therapeutic drug level monitoring documented in this encounter Care Teams Rose Grower Relationship Specialty Start Date End Date Physician, No Pcp PCP - General 11/05/24 documented as of this encounter
--- OUTSIDE RECORDS SUMMARY | 2025-09-07 00:31 | XMS_ITS | Encounter Summary ---
Author Organization [facility] Address [address] [place] [address] Care Team Providers Care Service Agent Name Role Phone Physician, No Pcp Primary Care Provider Unavaila ble Encounter Details Date Type Department Care Team (Late st Contact Info) Description 01/06/2025 Lab Requisition [facility] - Main Lab 299 [facility] [place] [address] Ailyn Stringer MD [address] [phone] Encounter for therapeutic drug level monitoring Social [...] LAB CHEMISTRY METHOD 01/07/2025 11:10 AM EST [facility] Blood Venous blood specimen / Unknown Venipuncture / Unknown 01/07/2025 7:14 AM EST 01/07/2025 9:34 AM EST us Ailyn Stringer MD LAB BLOOD ORDERABLES Fin al Result [facility] [address] [place] [address], documented in this encounter Visit Diagnoses Diagnosis Encounter for therapeutic drug level monitoring documented in this encounter Care Teams Service Agent Relationship Specialty Start Date End Date Physician, No Pcp PCP - General 11/05/24 documented as of this encounter
--- OUTSIDE RECORDS SUMMARY | 2025-09-07 00:31 | XMS_ITS | Encounter Summary ---
Author Organization [facility] Address [address] [place] [address] Care Team Providers Care Bulk Mail Technician Name Role Phone Physician, No Pcp Primary Care Provider Unavaila ble Encounter Details Date Type Department Care Team (Late st Contact Info) Description 01/23/2025 Lab Requisition [facility] - Main Lab 299 [facility] [place] [address] Ailyn Stringer MD [address] [phone] Malignant neoplasm of brain, unspecified (CMS/HCC V24, [...] LAB CHEMISTRY METHOD 01/25/2025 1:48 PM [facility] Potassium 3.4(L) 3.5 - 5.5 mmol/L LAB CHEMISTRY METHOD 01/25/2025 1:48 PM [facility] Chloride 107 96 - 110 mmol/L LAB CHEMISTRY METHOD 01/25/2025 1:48 PM [facility] CO2 22 21 - 32 mmol/L LAB CHEMISTRY METHOD 01/25/2025 1:48 PM [facility] Anion Gap 10 3 - 11 LAB CHEMISTRY METHOD 01/25/2025 1:48 PM [facility] Glucose 165(H) 70 - 100 mg/dL LAB CHEMISTRY METHOD 01/25/2025 1:48 PM [facility] BUN 13 5 - 25 mg/dL LAB CHEMISTRY METHOD 01/25/2025 1:48 PM [facility] Creatinine 0.72 0.70 - 1.30 mg/dL LAB CHEMISTRY METHOD 01/25/2025 1:48 PM [facility] eGFR 105 >=60 mL/min/1. 73m2 LAB CHEMISTRY METHOD 01/25/2025 1:48 PM [facility] Comment:Calculation based on the Chronic Kidney Disease Epidemiology Collaboration (CKD-EPI) equation refit without adjustment for race. BUN/Creatinine Ratio 18.1 LAB CHEMISTRY METHOD 01/25/2025 1:48 PM [facility] Calcium 8.7 8.5 - 10.5 mg/dL LAB CHEMISTRY METHOD 01/25/2025 1:48 PM [facility] AST (SGOT) 17 10 - 42 unit/L LAB CHEMISTRY METHOD 01/25/2025 1:48 PM [facility] ALT (SGPT) 44 10 - 60 unit/L LAB CHEMISTRY METHOD 01/25/2025 1:48 PM [facility] Alkaline Phosphatase 110 42 - 121 unit/L LAB CHEMISTRY METHOD 01/25/2025 1:48 PM [facility] Total Protein 6.1 6.0 - 8.0 g/dL LAB CHEMISTRY METHOD 01/25/2025 1:48 PM [facility] Albumin 3.2 3.2 - 5.0 g/dL LAB CHEMISTRY METHOD 01/25/2025 1:48 PM [facility] Total Bilirubin 0.3 0.0 - 1.4 mg/dL LAB CHEMISTRY METHOD 01/25/2025 1:48 PM [facility] Blood Venous blood specimen / Unknown Venipuncture / Unknown 01/25/2025 8:23 AM EDT 01/25/2025 11:32 AM EDT Ailyn Stringer MD LAB BLOOD ORDERABLES Fin al Result [facility] [address] [place] [address], * (ABNORMAL) Complete blood count (01/25/2025 8:23 AM EDT) WBC 6.9 4.8 - 10.8 K/mcL LAB HEMETOLOGY METHOD 01/25/2025 12:42 PM EDT [facility] RBC 4.40(L) 4.50 - 5.50 M/mcL LAB HEMETOLOGY METHOD 01/25/2025 12:42 PM EDT [facility] Hemoglobin 14.3 13.5 - 17.5 g/dL LAB HEMETOLOGY METHOD 01/25/2025 12:42 PM EDT [facility] Hematocrit 41.7(L) 42.0 - 54.0 % LAB HEMETOLOGY METHOD 01/25/2025 12:42 PM EDT [facility] MCV 94.8 79.0 - 98.0 FL LAB HEMETOLOGY METHOD 01/25/2025 12:42 PM EDT [facility] MCH 32.5(H) 27.0 - 32.0 pcg LAB HEMETOLOGY METHOD 01/25/2025 12:42 PM EDT [facility] MCHC 34.3 32.0 - 37.0 g/dL LAB HEMETOLOGY METHOD 01/25/2025 12:42 PM EDT [facility] RDW 12.6 11.0 - 15.0 % LAB HEMETOLOGY METHOD 01/25/2025 12:42 PM EDT [facility] Platelets 242 130 - 400 K/mcL LAB HEMETOLOGY METHOD 01/25/2025 12:42 PM EDT [facility] MPV 10.6 7.0 - 11.0 FL LAB HEMETOLOGY METHOD 01/25/2025 12:42 PM EDT [facility] NRBC 0.0 <1.0 % LAB HEMETOLOGY METHOD 01/25/2025 12:42 PM EDT [facility] NRBC Absolute 0.00 <0.10 K/mcL LAB HEMETOLOGY METHOD 01/25/2025 12:42 PM EDT [facility] Blood Venous blood specimen / Unknown Venipuncture / Unknown 01/25/2025 8:23 AM EDT 01/25/2025 11:32 AM EDT us Ailyn Stringer MD LAB BLOOD ORDERABLES Fin al Result [facility] [address] [place] [address], documented in this encounter Visit Diagnoses Diagnosis Malignant neoplasm of brain, unspecified (CMS/HCC V24, CMS/HCC V28) documented in this encounter Care Teams Bulk Mail Technician Relationship Specialty Start Date End Date Physician, No Pcp PCP - General 11/05/24 documented as of this encounter
--- OUTSIDE RECORDS SUMMARY | 2025-09-07 00:31 | XMS_ITS | Encounter Summary ---
Author Organization [facility] Address [address] [place] [address] Care Team Providers Care Retail And Promotions Coordinator Name Role Phone Physician, No Pcp Primary Care Provider Unavaila ble Encounter Details Date Type Department Care Team (Late st Contact Info) Description 04/11/2025 Lab Requisition [facility] - Main Lab 299 [facility] [place] [address] Ailyn Stringer MD [address] [phone] Malignant neoplasm of brain, unspecified (CMS/HCC V24, [...] AM EDT Malignant neoplasm of brain, unspecified ([facility]/HCC V24, [facility] V28) COMPREHENSIVE METABOLIC PANEL Routine 04/12/2025 5:40 AM EDT Malignant neoplasm of brain, unspecified (CMS/HCC V24, CMS/HCC V28) documented in this encounter Results * Complete blood count (04/12/2025 5:46 AM EDT) WBC 8.3 4.8 - 10.8 K/mcL LAB HEMETOLOGY METHOD 04/12/2025 11:01 AM [facility] RBC 4.60 4.50 - 5.50 M/mcL LAB HEMETOLOGY METHOD 04/12/2025 11:01 AM [facility] Hemoglobin 14.3 13.5 - 17.5 g/dL LAB HEMETOLOGY METHOD 04/12/2025 11:01 AM [facility] Hematocrit 43.5 42.0 - 54.0 % LAB HEMETOLOGY METHOD 04/12/2025 11:01 AM [facility] MCV 94.2 79.0 - 98.0 FL LAB HEMETOLOGY METHOD 04/12/2025 11:01 AM EDT [facility] MCH 31.0 27.0 - 32.0 pcg LAB HEMETOLOGY METHOD [facility] MCHC 32.9 32.0 - 37.0 g/dL LAB HEMETOLOGY METHOD 04/12/2025 11:01 AM EDT [facility] RDW 13.0 11.0 - 15.0 % LAB HEMETOLOGY METHOD 04/12/2025 11:01 AM [facility] Platelets 295 130 - 400 K/mcL LAB HEMETOLOGY METHOD 04/12/2025 11:01 AM [facility] MPV 11.0 7.0 - 11.0 FL LAB HEMETOLOGY METHOD 04/12/2025 11:[facility] NRBC 0.0 <1.0 % LAB HEMETOLOGY METHOD 04/12/2025 11:01 AM [facility] NRBC Absolute 0.00 <0.10 K/mcL LAB HEMETOLOGY METHOD 04/12/2025 11:01 AM [facility] Blood Venous blood specimen / Unknown Venipuncture / Unknown 04/12/2025 5:46 AM EDT 04/12/2025 10:14 AM EDT us Ailyn Stringer MD LAB BLOOD ORDERABLES Fin al Result [facility] [address] [place] [address], * (ABNORMAL) Comprehensive metabolic panel (04/12/2025 5:40 AM EDT) Sodium 138 133 - 145 mmol/L LAB CHEMISTRY METHOD 04/12/2025 11:52 AM EDT [facility] Potassium 4.3 3.5 - 5.5 mmol/L LAB CHEMISTRY METHOD 04/12/2025 11:52 AM [facility] Chloride 109 96 - 110 mmol/L LAB CHEMISTRY METHOD 04/12/2025 11:52 AM [facility] CO2 21 21 - 32 mmol/L LAB CHEMISTRY METHOD 04/12/2025 11:52 AM [facility] Anion Gap 8 3 - 11 LAB CHEMISTRY METHOD 04/12/2025 11:52 AM [facility] Glucose 106(H) 70 - 100 mg/dL LAB CHEMISTRY METHOD 04/12/2025 11:52 AM [facility] BUN 12 5 - 25 mg/dL LAB CHEMISTRY METHOD 04/12/2025 11:52 AM [facility] Creatinine 0.62(L) 0.70 - 1.30 mg/dL LAB CHEMISTRY METHOD 04/12/2025 11:52 AM [facility] eGFR 110 >=60 mL/min/1. 73m2 LAB CHEMISTRY METHOD 04/12/2025 11:52 AM [facility] Comment:Calculation based on the Chronic Kidney Disease Epidemiology Collaboration (CKD-EPI) equation refit without adjustment for race. BUN/Creatinine Ratio 19.4 LAB CHEMISTRY METHOD 04/12/2025 11:52 AM [facility] Calcium 8.7 8.5 - 10.5 mg/dL LAB CHEMISTRY METHOD 04/12/2025 11:52 AM [facility] AST (SGOT) 17 10 - 42 unit/L LAB CHEMISTRY METHOD 04/12/2025 11:52 AM [facility] ALT (SGPT) 40 10 - 60 unit/L LAB CHEMISTRY METHOD 04/12/2025 11:52 AM [facility] Alkaline Phosphatase 139(H) 42 - 121 unit/L LAB CHEMISTRY METHOD 04/12/2025 11:52 AM EDT [facility] Total Protein 6.6 6.0 - 8.0 g/dL LAB CHEMISTRY METHOD 04/12/2025 11:52 AM EDT [facility] Albumin 3.4 3.2 - 5.0 g/dL LAB CHEMISTRY METHOD 04/12/2025 11:52 AM T [facility] Total Bilirubin 0.2 0.0 - 1.4 mg/dL LAB CHEMISTRY METHOD 04/12/2025 11:52 AM EDT [facility] Blood Venous blood specimen / Unknown Venipuncture / Unknown 04/12/2025 5:40 AM EDT 04/12/2025 10:24 AM EDT us Ailyn Stringer MD LAB BLOOD ORDERABLES Fin al Result [facility] [address] [place] [address], documented in this encounter Visit Diagnoses Diagnosis Malignant neoplasm of brain, unspecified (CMS/HCC V24, CMS/HCC V28) documented in this encounter Care Teams Retail And Promotions Coordinator Relationship Specialty Start Date End Date Physician, No Pcp PCP - General 11/05/24 documented as of this encounter
--- OUTSIDE RECORDS SUMMARY | 2025-09-07 00:31 | XMS_ITS | Encounter Summary ---
Author Organization [facility] Address [address] [place] [address] Care Team Providers Care Instrument Processing Tech Name Role Phone Physician, No Pcp Primary Care Provider Unavaila ble Encounter Details Date Type Department Care Team (Late st Contact Info) Description 12/26/2024 Lab Requisition [facility] - Main Lab 299 [facility] [place] [address] Ailyn Stringer MD [address] [phone] Malignant neoplasm of brain, unspecified (CMS/HCC V24, [...] Assessment Author Yes 11/06/2024 6:22 AM Jigna hCávez RN * Do you have serious difficulty [...] LAB CHEMISTRY METHOD 12/28/2024 12:11 PM EST [facility]) [facility] Blood Venous blood specimen / Unknown Venipuncture / Unknown 12/28/2024 7:43 AM EST 12/28/2024 10:11 AM EST us Ailyn Stringer MD LAB BLOOD ORDERABLES Fin al Result [facility] [address] [place] [address], * (ABNORMAL) Comprehensive metabolic panel (12/28/2024 7:43 AM EST) Sodium 141 133 - 145 mmol/L LAB CHEMISTRY METHOD 12/28/2024 10:57 AM [facility] Potassium 3.7 3.5 - 5.5 mmol/L LAB CHEMISTRY METHOD 12/28/2024 10:57 AM [facility] Chloride 108 96 - 110 mmol/L LAB CHEMISTRY METHOD 12/28/2024 10:57 AM [facility] CO2 23 21 - 32 mmol/L LAB CHEMISTRY METHOD 12/28/2024 10:57 AM [facility] Anion Gap 10 3 - 11 LAB CHEMISTRY METHOD 12/28/2024 10:57 AM [facility] Glucose 210(H) 70 - 100 mg/dL LAB CHEMISTRY METHOD 12/28/2024 10:57 AM [facility] BUN 13 5 - 25 mg/dL LAB CHEMISTRY METHOD 12/28/2024 10:57 AM [facility] Creatinine 0.81 0.70 - 1.30 mg/dL LAB CHEMISTRY METHOD 12/28/2024 10:57 AM [facility] eGFR 102 >=60 mL/min/1. 73m2 LAB CHEMISTRY METHOD 12/28/2024 10:57 AM [facility] Comment:Calculation based on the Chronic Kidney Disease Epidemiology Collaboration (CKD-EPI) equation refit without adjustment for race. BUN/Creatinine Ratio 16.0 LAB CHEMISTRY METHOD 12/28/2024 10:57 AM [facility] Calcium 8.9 8.5 - 10.5 mg/dL LAB CHEMISTRY METHOD 12/28/2024 10:57 AM [facility] AST (SGOT) 25 10 - 42 unit/L LAB CHEMISTRY METHOD 12/28/2024 10:57 AM [facility] ALT (SGPT) 55 10 - 60 unit/L LAB CHEMISTRY METHOD 12/28/2024 10:57 AM [facility] Alkaline Phosphatase 101 42 - 121 unit/L LAB CHEMISTRY METHOD 12/28/2024 10:57 AM [facility] Total Protein 6.7 6.0 - 8.0 g/dL LAB CHEMISTRY METHOD 12/28/2024 10:57 AM [facility] Albumin 3.5 3.2 - 5.0 g/dL LAB CHEMISTRY METHOD 12/28/2024 10:57 AM [facility] Total Bilirubin 0.3 0.0 - 1.4 mg/dL LAB CHEMISTRY METHOD 12/28/2024 10:57 AM [facility] Blood Venous blood specimen / Unknown Venipuncture / Unknown 12/28/2024 7:43 AM EST 12/28/2024 10:11 AM EST us Ailyn Stringer MD LAB BLOOD ORDERABLES Fin al Result [facility] [address] [place] [address], * Complete blood count (12/28/2024 7:43 AM EST) WBC 6.7 4.8 - 10.8 K/mcL LAB HEMETOLOGY METHOD 12/28/2024 10:39 AM [facility] RBC 4.60 4.50 - 5.50 M/mcL LAB HEMETOLOGY METHOD 12/28/2024 10:39 AM [facility] Hemoglobin 14.7 13.5 - 17.5 g/dL LAB HEMETOLOGY METHOD 12/28/2024 10:39 AM [facility] Hematocrit 44.5 42.0 - 54.0 % LAB HEMETOLOGY METHOD 12/28/2024 10:39 AM [facility] MCV 96.7 79.0 - 98.0 FL LAB HEMETOLOGY METHOD 12/28/2024 10:39 AM EST [facility] MCH 32.0 27.0 - 32.0 pcg LAB HEMETOLOGY METHOD 12/28/2024 10:39 AM [facility] MCHC 33.0 32.0 - 37.0 g/dL LAB HEMETOLOGY METHOD 12/28/2024 10:39 AM [facility] RDW 12.4 11.0 - 15.0 % LAB HEMETOLOGY METHOD 12/28/2024 10:39 AM EST [facility] Platelets 263 130 - 400 K/mcL LAB HEMETOLOGY METHOD 12/28/2024 10:39 AM [facility] MPV 10.7 7.0 - 11.0 FL LAB HEMETOLOGY METHOD 12/28/2024 10:39 AM [facility] NRBC 0.0 <1.0 % LAB HEMETOLOGY METHOD 12/28/2024 10:39 AM [facility] NRBC Absolute 0.00 <0.10 K/mcL LAB HEMETOLOGY METHOD 12/28/2024 10:39 AM [facility] Blood Venous blood specimen / Unknown Venipuncture / Unknown 12/28/2024 7:43 AM EST 12/28/2024 10:11 AM EST us Ailyn Stringer MD LAB BLOOD ORDERABLES Fin al Result [facility] [address] [place] [address], documented in this encounter Visit Diagnoses Diagnosis Malignant neoplasm of brain, unspecified (CMS/HCC V24, CMS/HCC V28) Other seizures (CMS/HCC V24, CMS/HCC V28) documented in this encounter Care Teams Instrument Processing Tech Relationship Specialty Start Date End Date Physician, No Pcp PCP - General 11/05/24 documented as of this encounter
--- OUTSIDE RECORDS SUMMARY | 2025-09-07 00:31 | XMS_ITS | Encounter Summary ---
Author Organization [facility] Address [address] [place] [address] Care Team Providers Care Stocking Inspector Name Role Phone Physician, No Pcp Primary Care Provider Unavaila ble Encounter Details Date Type Department Care Team (Late st Contact Info) Description 03/21/2025 Lab Requisition [facility] - Main Lab 299 [facility] [place] [address] Ailyn Stringer MD [address] [phone] Malignant neoplasm of brain, unspecified (CMS/HCC V24, [...] AM EDT Malignant neoplasm of brain, unspecified ([facility]/HCC V24, [facility] V28) COMPREHENSIVE METABOLIC PANEL Routine 03/22/2025 8:30 AM EDT Malignant neoplasm of brain, unspecified ([facility]/HCC V24, CMS/HCC V28) documented in this encounter Results * (ABNORMAL) Comprehensive metabolic panel (03/22/2025 8:30 AM EDT) Sodium 140 133 - 145 mmol/L LAB CHEMISTRY METHOD 03/22/2025 1:36 PM T [facility] Potassium 4.0 3.5 - 5.5 mmol/L LAB CHEMISTRY METHOD 03/22/2025 1:36 PM T [facility] Chloride 106 96 - 110 mmol/L LAB CHEMISTRY METHOD 03/22/2025 1:36 PM [facility] CO2 25 21 - 32 mmol/L LAB CHEMISTRY METHOD 03/22/2025 1:36 PM [facility] Anion Gap 9 3 - 11 LAB CHEMISTRY METHOD 03/22/2025 1:36 PM [facility] Glucose 189(H) 70 - 100 mg/dL LAB CHEMISTRY METHOD 03/22/2025 1:36 PM [facility] BUN 8 5 - 25 mg/dL LAB CHEMISTRY METHOD 03/22/2025 1:36 PM [facility] Creatinine 0.72 0.70 - 1.30 mg/dL LAB CHEMISTRY METHOD 03/22/2025 1:36 PM [facility] eGFR 105 >=60 mL/min/1. 73m2 LAB CHEMISTRY METHOD 03/22/2025 1:36 PM [facility] Comment:Calculation based on the Chronic Kidney Disease Epidemiology Collaboration (CKD-EPI) equation refit without adjustment for race. BUN/Creatinine Ratio 11.1 LAB CHEMISTRY METHOD 03/22/2025 1:36 PM [facility] Calcium 8.7 8.5 - 10.5 mg/dL LAB CHEMISTRY METHOD 03/22/2025 1:36 PM [facility] AST (SGOT) 37 10 - 42 unit/L LAB CHEMISTRY METHOD 03/22/2025 1:36 PM [facility] ALT (SGPT) 43 10 - 60 unit/L LAB CHEMISTRY METHOD 03/22/2025 1:36 PM [facility] Alkaline Phosphatase 136(H) 42 - 121 unit/L LAB CHEMISTRY METHOD 03/22/2025 1:36 PM [facility] Total Protein 6.6 6.0 - 8.0 g/dL LAB CHEMISTRY METHOD 03/22/2025 1:36 PM [facility] Albumin 3.6 3.2 - 5.0 g/dL LAB CHEMISTRY METHOD 03/22/2025 1:36 PM [facility] Total Bilirubin 0.2 0.0 - 1.4 mg/dL LAB CHEMISTRY METHOD 03/22/2025 1:36 PM [facility] Blood Venous blood specimen / Unknown Venipuncture / Unknown 03/22/2025 8:30 AM EDT 03/22/2025 12:08 PM EDT us Ailyn Stringer MD LAB BLOOD ORDERABLES Fin al Result [facility] [address] [place] [address], [place] [phone] * (ABNORMAL) Complete blood count (03/22/2025 8:30 AM EDT) [facility] WBC 6.9 4.8 - 10.8 K/mcL LAB HEMETOLOGY METHOD 03/22/2025 2:06 PM EDT [facility] RBC 4.90 4.50 - 5.50 M/mcL LAB HEMETOLOGY METHOD 03/22/2025 2:06 PM EDT [facility] Hemoglobin 15.5 13.5 - 17.5 g/dL LAB HEMETOLOGY METHOD 03/22/2025 2:06 PM EDT [facility] Hematocrit 46.2 42.0 - 54.0 % LAB HEMETOLOGY METHOD 03/22/2025 2:06 PM EDT [facility] MCV 94.7 79.0 - 98.0 FL LAB HEMETOLOGY METHOD 03/22/2025 2:06 PM EDT [facility] MCH 31.8 27.0 - 32.0 pcg LAB HEMETOLOGY METHOD 03/22/2025 2:06 PM EDT [facility] MCHC 33.5 32.0 - 37.0 g/dL LAB HEMETOLOGY METHOD 03/22/2025 2:06 PM EDT [facility] RDW 12.6 11.0 - 15.0 % LAB HEMETOLOGY METHOD 03/22/2025 2:06 PM EDT [facility] Platelets 279 130 - 400 K/mcL LAB HEMETOLOGY METHOD 03/22/2025 2:06 PM EDT [facility] MPV 11.1(H) 7.0 - 11.0 FL LAB HEMETOLOGY METHOD 03/22/2025 2:06 PM EDT [facility] NRBC 0.0 <1.0 % [facility] 03/22/2025 2:06 PM EDT [facility] NRBC Absolute 0.00 <0.10 K/mcL LAB HEMETOLOGY METHOD 03/22/2025 2:06 PM EDT [facility] Blood Venous blood specimen / Unknown Venipuncture / Unknown 03/22/2025 8:30 AM EDT 03/22/2025 12:08 PM EDT us Ailyn Stringer MD LAB BLOOD ORDERABLES Fin al Result [facility] [address] [place] [address], documented in this encounter Visit Diagnoses Diagnosis Malignant neoplasm of brain, unspecified (CMS/HCC V24, CMS/HCC V28) documented in this encounter Care Teams Stocking Inspector Relationship Specialty Start Date End Date Physician, No Pcp PCP - General 11/05/24 documented as of this encounter
--- OUTSIDE RECORDS SUMMARY | 2025-09-07 00:31 | XMS_ITS | Encounter Summary ---
Author Organization [facility] Address [address] [place] [address] Care Team Providers Care Electronic Components Assembler Name Role Phone Physician, No Pcp Primary Care Provider Unavaila ble Encounter Details Date Type Department Care Team (Late st Contact Info) Description 12/29/2024 Lab Requisition [facility] - Main Lab 299 [facility] [place] [address] Ailyn Stringer MD [address] [phone] Encounter for therapeutic drug level monitoring Social [...] Result [facility] [address] [place] [address], documented in this encounter Visit Diagnoses Diagnosis Encounter for therapeutic drug level monitoring documented in this encounter Care Teams Electronic Components Assembler Relationship Specialty Start Date End Date Physician, No Pcp PCP - General 11/05/24 documented as of this encounter
--- OUTSIDE RECORDS SUMMARY | 2025-09-07 00:31 | XMS_ITS | Encounter Summary ---
Author Organization [facility] Address [address] [place] [address] Care Team Providers Care Motor Driver Name Role Phone Physician, No Pcp Primary Care Provider Unavaila ble Encounter Details Date Type Department Care Team (Late st Contact Info) Description 01/02/2025 Lab Requisition [facility] - Main Lab 299 [facility] [place] [address] Ailyn Stringer MD [address] [phone] Malignant neoplasm of brain, unspecified (CMS/HCC V24, [...] - 2.0 ug/mL 01/06/2025 1:21 PM EST [facility] Comment: Phenytoin free toxic level: >3.0 ug/mL If applicable, any drug confirmation testing reported here was developed and the performance characteristics determined by [facility]. This confirmation testing has not been cleared or approved by the FDA. The laboratory is regulated under CLIA as qualified to perform high-complexity testing. This test is used for patient testing purposes. It should not be regarded as investigational or for research. Test performed at [facility], [address] , [place] [address] Vee Em MD, PhD - Development Engineer Blood Venous blood specimen / Unknown Venipuncture / Unknown 01/04/2025 8:24 AM EST 01/04/2025 11:21 AM EST Ailyn Stringer MD LAB BLOOD ORDERABLES Fin al Result [facility] [address] [place] [address] * (ABNORMAL) Comprehensive metabolic panel (01/04/2025 8:24 AM EST) Sodium 141 133 - 145 mmol/L LAB CHEMISTRY METHOD 01/04/2025 12:47 PM [facility] Potassium 3.6 3.5 - 5.5 mmol/L LAB CHEMISTRY METHOD 01/04/2025 12:47 PM [facility] Chloride 109 96 - 110 mmol/L LAB CHEMISTRY METHOD 01/04/2025 12:47 PM [facility] CO2 21 21 - 32 mmol/L LAB CHEMISTRY METHOD 01/04/2025 12:47 PM [facility] Anion Gap 11 3 - 11 LAB CHEMISTRY METHOD 01/04/2025 12:47 PM [facility] Glucose 225(H) 70 - 100 mg/dL LAB CHEMISTRY METHOD 01/04/2025 12:47 PM [facility] BUN 13 5 - 25 mg/dL LAB CHEMISTRY METHOD 01/04/2025 12:47 PM [facility] Creatinine 0.80 0.70 - 1.30 mg/dL LAB CHEMISTRY METHOD 01/04/2025 12:47 PM [facility] eGFR 103 >=60 mL/min/1. 73m2 LAB CHEMISTRY METHOD 01/04/2025 12:47 PM [facility] Comment:Calculation based on the Chronic Kidney Disease Epidemiology Collaboration (CKD-EPI) equation refit without adjustment for race. BUN/Creatinine Ratio 16.3 LAB CHEMISTRY METHOD 01/04/2025 12:47 PM [facility] Calcium 8.9 8.5 - 10.5 mg/dL LAB CHEMISTRY METHOD 01/04/2025 12:47 PM [facility] AST (SGOT) 31 10 - 42 unit/L LAB CHEMISTRY METHOD 01/04/2025 12:47 PM [facility] ALT (SGPT) 72(H) 10 - 60 unit/L LAB CHEMISTRY METHOD 01/04/2025 12:47 PM [facility] Alkaline Phosphatase 122(H) 42 - 121 unit/L LAB CHEMISTRY METHOD 01/04/2025 12:47 PM [facility] Total Protein 7.1 6.0 - 8.0 g/dL LAB CHEMISTRY METHOD 01/04/2025 12:47 PM [facility] Albumin 3.6 3.2 - 5.0 g/dL LAB CHEMISTRY METHOD 01/04/2025 12:47 PM [facility] Total Bilirubin 0.3 0.0 - 1.4 mg/dL LAB CHEMISTRY METHOD 01/04/2025 12:47 PM [facility] Blood Venous blood specimen / Unknown Venipuncture / Unknown 01/04/2025 8:24 AM EST 01/04/2025 11:17 AM EST us Ailyn Stringer MD LAB BLOOD ORDERABLES Fin al Result [facility] [address] [place] [address], * (ABNORMAL) Complete blood count (01/04/2025 8:24 AM EST) WBC 7.6 4.8 - 10.8 K/mcL LAB HEMETOLOGY METHOD 01/04/2025 2:13 PM [facility] RBC 4.80 4.50 - 5.50 M/mcL LAB HEMETOLOGY METHOD 01/04/2025 2:13 PM EST [facility] Hemoglobin 15.6 13.5 - 17.5 g/dL LAB HEMETOLOGY METHOD 01/04/2025 2:13 PM [facility] Hematocrit 47.8 42.0 - 54.0 % LAB HEMETOLOGY METHOD 01/04/2025 2:13 PM [facility] MCV 99.2(H) 79.0 - 98.0 FL LAB HEMETOLOGY METHOD 01/04/2025 2:13 PM [facility] MCH 32.4(H) 27.0 - 32.0 pcg LAB HEMETOLOGY METHOD 01/04/2025 2:13 PM [facility] MCHC 32.6 32.0 - 37.0 g/dL LAB HEMETOLOGY METHOD 01/04/2025 2:13 PM [facility] RDW 12.4 11.0 - 15.0 % LAB HEMETOLOGY METHOD 01/04/2025 2:13 PM [facility] Platelets 294 130 - 400 K/mcL LAB HEMETOLOGY METHOD 01/04/2025 2:13 PM [facility] MPV 11.1(H) 7.0 - 11.0 FL LAB HEMETOLOGY METHOD 01/04/2025 2:13 PM [facility] NRBC 0.0 <1.0 % LAB HEMETOLOGY METHOD 01/04/2025 2:13 PM [facility] NRBC Absolute 0.00 <0.10 K/mcL LAB HEMETOLOGY METHOD 01/04/2025 2:13 PM [facility] Blood Venous blood specimen / Unknown Venipuncture / Unknown 01/04/2025 8:24 AM EST 01/04/2025 11:18 AM EST Ailyn Stringer MD LAB BLOOD ORDERABLES Fin al Result [facility] H[facility] LAB [address] [place] [address], documented in this encounter Visit Diagnoses Diagnosis Malignant neoplasm of brain, unspecified (CMS/HCC V24, CMS/HCC V28) Encounter for therapeutic drug level monitoring documented in this encounter Care Teams Motor Driver Relationship Specialty Start Date End Date Physician, No Pcp PCP - General 11/05/24 documented as of this encounter
--- OUTSIDE RECORDS SUMMARY | 2025-09-07 00:31 | XMS_ITS | Encounter Summary ---
Author Organization [facility] Address [address] [place] [address] Care Team Providers Care Men'S Golf Coach Name Role Phone Physician, No Pcp Primary Care Provider Unavaila ble Encounter Details Date Type Department Care Team (Late st Contact Info) Description 01/01/2025 Lab Requisition [facility] - Main Lab [address] [facility] [place] [address] Ailyn Stringer MD [address] [phone] Encounter for therapeutic drug level monitoring Social [...] monitoring documented in this encounter Care Teams Men'S Golf Coach Relationship Specialty Start Date End Date Physician, No Pcp PCP - General 11/05/24 documented as of this encounter
--- OUTSIDE RECORDS SUMMARY | 2025-09-07 00:31 | XMS_ITS | Encounter Summary ---
Author Organization [facility] Address [address] [place] [address] Care Team Providers Care Diversified Crops Farmworker Name Role Phone Physician, No Pcp Primary Care Provider Unavaila ble Encounter Details Date Type Department Care Team (Late st Contact Info) Description 11/28/2024 Lab Requisition [facility] - Main Lab 299 [facility] [place] [address] Ailyn Stringer MD [address] [phone] Malignant neoplasm of brain, unspecified (CMS/HCC V24, [...] mmol/L LAB CHEMISTRY METHOD 11/30/2024 1:55 PM [facility] Potassium 3.6 3.5 - 5.5 mmol/L LAB CHEMISTRY METHOD 11/30/2024 1:55 PM [facility] Chloride 105 96 - 110 mmol/L LAB CHEMISTRY METHOD 11/30/2024 1:55 PM [facility] CO2 28 21 - 32 mmol/L LAB CHEMISTRY METHOD 11/30/2024 1:55 PM [facility] Anion Gap 7 3 - 11 LAB CHEMISTRY METHOD 11/30/2024 1:55 PM [facility] Glucose 123(H) 70 - 100 mg/dL LAB CHEMISTRY METHOD 11/30/2024 1:55 PM [facility] BUN 14 5 - 25 mg/dL LAB CHEMISTRY METHOD 11/30/2024 1:55 PM [facility] Creatinine 0.76 0.70 - 1.30 mg/dL LAB CHEMISTRY METHOD 11/30/2024 1:55 PM [facility] eGFR 104 >=60 mL/min/1. 73m2 LAB CHEMISTRY METHOD 11/30/2024 1:55 PM [facility] Comment:Calculation based on the Chronic Kidney Disease Epidemiology Collaboration (CKD-EPI) equation refit without adjustment for race. BUN/Creatinine Ratio 18.4 LAB CHEMISTRY METHOD 11/30/2024 1:55 PM [facility] Calcium 8.7 8.5 - 10.5 mg/dL LAB CHEMISTRY METHOD 11/30/2024 1:55 PM [facility] AST (SGOT) 23 10 - 42 unit/L LAB CHEMISTRY METHOD 11/30/2024 1:55 PM [facility] ALT (SGPT) 65(H) 10 - 60 unit/L LAB CHEMISTRY METHOD 11/30/2024 1:55 PM [facility] Alkaline Phosphatase 115 42 - 121 unit/L LAB CHEMISTRY METHOD 11/30/2024 1:55 PM [facility] Total Protein 6.5 6.0 - 8.0 g/dL LAB CHEMISTRY METHOD 11/30/2024 1:55 PM [facility] Albumin 3.5 3.2 - 5.0 g/dL LAB CHEMISTRY METHOD 11/30/2024 1:55 PM [facility] Total Bilirubin 0.2 0.0 - 1.4 mg/dL LAB CHEMISTRY METHOD 11/30/2024 1:55 PM [facility] Blood Venous blood specimen / Unknown Venipuncture / Unknown 11/30/2024 8:53 AM EST 11/30/2024 12:27 PM EST us Ailyn Stringer MD LAB BLOOD ORDERABLES Fin al Result [facility] [address] [place] [address], * (ABNORMAL) Complete blood count (11/30/2024 8:53 AM EST) [facility] WBC 6.8 4.8 - 10.8 K/mcL LAB HEMETOLOGY METHOD 11/30/2024 1:38 PM [facility] RBC 4.30(L) 4.50 - 5.50 M/mcL LAB HEMETOLOGY METHOD 11/30/2024 1:38 PM [facility] Hemoglobin 14.2 13.5 - 17.5 g/dL LAB HEMETOLOGY METHOD 11/30/2024 1:38 PM [facility] Hematocrit 43.4 42.0 - 54.0 % LAB HEMETOLOGY METHOD 11/30/2024 1:38 PM [facility] MCV 100.2(H) 79.0 - 98.0 FL LAB HEMETOLOGY METHOD 11/30/2024 1:38 PM [facility] MCH 32.8(H) 27.0 - 32.0 pcg LAB HEMETOLOGY METHOD 11/30/2024 1:38 PM [facility] MCHC 32.7 32.0 - 37.0 g/dL LAB HEMETOLOGY METHOD 11/30/2024 1:38 PM [facility] RDW 13.0 11.0 - 15.0 % LAB HEMETOLOGY METHOD 11/30/2024 1:38 PM [facility] Platelets 261 130 - 400 K/mcL LAB HEMETOLOGY METHOD 11/30/2024 1:38 PM [facility] MPV 10.8 7.0 - 11.0 FL LAB HEMETOLOGY METHOD 11/30/2024 1:38 PM [facility] NRBC 0.0 <1.0 % LAB HEMETOLOGY METHOD 11/30/2024 1:38 PM EST [facility] NRBC Absolute 0.00 <0.10 K/mcL LAB HEMETOLOGY METHOD 11/30/2024 1:38 PM EST [facility] Blood Venous blood specimen / Unknown Venipuncture / Unknown 11/30/2024 8:53 AM EST 11/30/2024 12:27 PM EST us Ailyn Stringer MD LAB BLOOD ORDERABLES Fin al Result [facility] [address] [place] [address], documented in this encounter Visit Diagnoses Diagnosis Malignant neoplasm of brain, unspecified (CMS/HCC V24, CMS/HCC V28) documented in this encounter Care Teams Diversified Crops Farmworker Relationship Specialty Start Date End Date Physician, No Pcp PCP - General 11/05/24 documented as of this encounter
--- OUTSIDE RECORDS SUMMARY | 2025-09-07 00:31 | XMS_ITS | Encounter Summary ---
Author Organization [facility] Address [address] [place] [address] Care Team Providers Care Retrimmer Name Role Phone Physician, No Pcp Primary Care Provider Unavaila ble Encounter Details Date Type Department Care Team (Late st Contact Info) Description 04/04/2025 Lab Requisition [facility] - Main Lab [address] [facility] [place] [address] Ailyn Stringer MD [address] [phone] Malignant neoplasm of brain, unspecified (CMS/HCC V24, [...] AM EDT Malignant neoplasm of brain, unspecified ([facility]/HCC V24, [facility] V28) COMPREHENSIVE METABOLIC PANEL Routine 04/06/2025 9:32 AM EDT Malignant neoplasm of brain, unspecified ([facility]/HCC V24, CMS/HCC V28) documented in this encounter Results * (ABNORMAL) Comprehensive metabolic panel (04/06/2025 9:32 AM EDT) Sodium 136 133 - 145 mmol/L LAB CHEMISTRY METHOD 04/06/2025 12:[address] [facility] Potassium 4.1 3.5 - 5.5 mmol/L LAB CHEMISTRY METHOD 04/06/2025 12:[address] [facility] LAB Comment:Hemolysis present Chloride 105 96 - 110 mmol/L LAB CHEMISTRY METHOD 04/06/2025 12:[address] [facility] CO2 23 21 - 32 mmol/L LAB CHEMISTRY METHOD 04/06/2025 12:[address] [facility] Anion Gap 8 3 - 11 LAB CHEMISTRY METHOD 04/06/2025 12:[address] [facility] Glucose 156(H) 70 - 100 mg/dL LAB CHEMISTRY METHOD 04/06/2025 12:[address] [facility] BUN 11 5 - 25 mg/dL LAB CHEMISTRY METHOD 04/06/2025 12:[address] [facility] Creatinine 0.75 0.70 - 1.30 mg/dL LAB CHEMISTRY METHOD 04/06/2025 12:[address] [facility] eGFR 104 >=60 mL/min/1. 73m2 LAB CHEMISTRY METHOD 04/06/2025 12:[address] [facility] Comment:Calculation based on the Chronic Kidney Disease Epidemiology Collaboration (CKD-EPI) equation refit without adjustment for race. BUN/Creatinine Ratio 14.7 LAB CHEMISTRY METHOD 04/06/2025 12:[address] [facility] Calcium 8.7 8.5 - 10.5 mg/dL LAB CHEMISTRY METHOD 04/06/2025 12:[address] [facility] AST (SGOT) 21 10 - 42 unit/L LAB CHEMISTRY METHOD 04/06/2025 12:[address] [facility] Comment:Hemolysis present ALT (SGPT) 39 10 - 60 unit/L LAB CHEMISTRY METHOD 04/06/2025 12:[address] [facility] Alkaline Phosphatase 153(H) 42 - 121 unit/L LAB CHEMISTRY METHOD 04/06/2025 12:[address] [facility] Total Protein 6.8 6.0 - 8.0 g/dL LAB CHEMISTRY METHOD 04/06/2025 12:[address] [facility] Albumin 3.5 3.2 - 5.0 g/dL LAB CHEMISTRY METHOD 04/06/2025 12:[address] [facility] Total Bilirubin 0.3 0.0 - 1.4 mg/dL LAB CHEMISTRY METHOD 04/06/2025 12:[address] [facility] Blood Venous blood specimen / Unknown Venipuncture / Unknown 04/06/2025 9:32 AM EDT 04/06/2025 10:51 AM EDT us Ailyn Stringer MD LAB BLOOD ORDERABLES Fin al Result [facility] [address] [place] [address], * (ABNORMAL) Complete blood count (04/06/2025 9:32 AM EDT) WBC 6.9 4.8 - 10.8 K/mcL LAB HEMETOLOGY METHOD 04/06/2025 12:24 PM EDT [facility] RBC 4.60 4.50 - 5.50 M/mcL LAB HEMETOLOGY METHOD 04/06/2025 12:24 PM EDT [facility] Hemoglobin 14.7 13.5 - 17.5 g/dL LAB HEMETOLOGY METHOD 04/06/2025 12:24 PM EDT [facility] Hematocrit 44.5 42.0 - 54.0 % LAB HEMETOLOGY METHOD 04/06/2025 12:24 PM EDT [facility] MCV 96.9 79.0 - 98.0 FL LAB HEMETOLOGY METHOD 04/06/2025 12:24 PM EDT [facility] MCH 32.0 27.0 - 32.0 pcg LAB HEMETOLOGY METHOD 04/06/2025 12:24 PM EDT [facility] MCHC 33.0 32.0 - 37.0 g/dL LAB HEMETOLOGY METHOD 04/06/2025 12:24 PM EDT [facility] RDW 12.8 11.0 - 15.0 % LAB HEMETOLOGY METHOD 04/06/2025 12:24 PM EDT [facility] Platelets 238 130 - 400 K/mcL LAB HEMETOLOGY METHOD 04/06/2025 12:24 PM EDT [facility] MPV 11.1(H) 7.0 - 11.0 FL LAB HEMETOLOGY METHOD 04/06/2025 12:24 PM EDT [facility] NRBC 0.0 <1.0 % LAB [facility] METHOD 04/06/2025 12:24 PM EDT [facility] NRBC Absolute 0.00 <0.10 K/mcL LAB HEMETOLOGY METHOD 04/06/2025 12:24 PM EDT [facility] Blood Venous blood specimen / Unknown Venipuncture / Unknown 04/06/2025 9:32 AM EDT 04/06/2025 10:51 AM EDT us Ailyn Stringer MD LAB BLOOD ORDERABLES Fin al Result [facility] [address] [place] [address], documented in this encounter Visit Diagnoses Diagnosis Malignant neoplasm of brain, unspecified (CMS/HCC V24, CMS/HCC V28) documented in this encounter Care Teams Retrimmer Relationship Specialty Start Date End Date Physician, No Pcp PCP - General 11/05/24 documented as of this encounter
--- OUTSIDE RECORDS SUMMARY | 2025-09-07 00:31 | XMS_ITS | Encounter Summary ---
Author Organization [facility] Address [address] [place] [address] Care Team Providers Care Cell Operator Name Role Phone Physician, No Pcp Primary Care Provider Unavaila ble Encounter Details Date Type Department Care Team (Late st Contact Info) Description 05/07/2025 Lab Requisition [facility] - Main Lab 299 [facility] [place] [address] Ailyn Stringer MD [address] [phone] Malignant neoplasm of brain, unspecified (CMS/HCC V24, [...] V28) documented in this encounter Care Teams Cell Operator Relationship Specialty Start Date End Date Physician, No Pcp PCP - General 11/05/24 documented as of this encounter
--- OUTSIDE RECORDS SUMMARY | 2025-09-07 00:31 | XMS_ITS | Encounter Summary ---
Author Organization [facility] Address [address] [place] [address] Care Team Providers Care Mulling Machine Operator Name Role Phone Physician, No Pcp Primary Care Provider Unavaila ble Encounter Details Date Type Department Care Team (Late st Contact Info) Description 01/01/2025 Lab Requisition [facility] - Main Lab 299 [facility] [place] [address] Ailyn Stringer MD [address] [phone] Encounter for therapeutic drug level monitoring Social [...] LAB CHEMISTRY METHOD 01/01/2025 12:30 PM EST [facility] Blood Venous blood specimen / Unknown 01/01/2025 6:06 AM EST 01/01/2025 12:15 PM EST Ailyn Stringer MD LAB BLOOD ORDERABLES Fin al Result [facility] [address] [place] [address], documented in this encounter Visit Diagnoses Diagnosis Encounter for therapeutic drug level monitoring documented in this encounter Care Teams Mulling Machine Operator Relationship Specialty Start Date End Date Physician, No Pcp PCP - General 11/05/24 documented as of this encounter
--- OUTSIDE RECORDS SUMMARY | 2025-09-07 00:31 | XMS_ITS | Encounter Summary ---
Author Organization [facility] Address [address] [place] [address] Care Team Providers Care Director Consumer Affairs Name Role Phone Physician, No Pcp Primary Care Provider Unavaila ble Encounter Details Date Type Department Care Team (Late st Contact Info) Description 03/28/2025 Lab Requisition [facility] - Main Lab 299 [facility] [place] [address] Ailyn Stringer MD [address] [phone] Malignant neoplasm of brain, unspecified (CMS/HCC V24, [...] [facility] V28) COMPREHENSIVE METABOLIC PANEL Routine 03/29/2025 7:15 AM EDT Malignant neoplasm of brain, unspecified ([facility]/HCC V24, CMS/HCC V28) documented in this encounter Results * (ABNORMAL) Comprehensive metabolic panel (03/29/2025 7:15 AM EDT) Sodium 137 133 - 145 mmol/L LAB CHEMISTRY METHOD 03/29/2025 1:53 PM [facility] Potassium 3.9 3.5 - 5.5 mmol/L LAB CHEMISTRY METHOD 03/29/2025 1:53 PM [facility] Chloride 103 96 - 110 mmol/L LAB CHEMISTRY METHOD 03/29/2025 1:53 PM [facility] CO2 25 21 - 32 mmol/L LAB CHEMISTRY METHOD 03/29/2025 1:53 PM [facility] Anion Gap 9 3 - 11 LAB CHEMISTRY METHOD 03/29/2025 1:53 PM [facility] Glucose 137(H) 70 - 100 mg/dL LAB CHEMISTRY METHOD 03/29/2025 1:53 PM [facility] BUN 11 5 - 25 mg/dL LAB CHEMISTRY METHOD 03/29/2025 1:53 PM [facility] Creatinine 0.69(L) 0.70 - 1.30 mg/dL LAB CHEMISTRY METHOD 03/29/2025 1:53 PM [facility] eGFR 107 >=60 mL/min/1. 73m2 LAB CHEMISTRY METHOD 03/29/2025 1:53 PM [facility] Comment:Calculation based on the Chronic Kidney Disease Epidemiology Collaboration (CKD-EPI) equation refit without adjustment for race. BUN/Creatinine Ratio 15.9 LAB CHEMISTRY METHOD 03/29/2025 1:53 PM [facility] Calcium 8.9 8.5 - 10.5 mg/dL LAB CHEMISTRY METHOD 03/29/2025 1:53 PM [facility] AST (SGOT) 18 10 - 42 unit/L LAB CHEMISTRY METHOD 03/29/2025 1:53 PM [facility] ALT (SGPT) 49 10 - 60 unit/L LAB CHEMISTRY METHOD 03/29/2025 1:53 PM [facility] Alkaline Phosphatase 145(H) 42 - 121 unit/L LAB CHEMISTRY METHOD 03/29/2025 1:53 PM [facility] Total Protein 7.0 6.0 - 8.0 g/dL LAB CHEMISTRY METHOD 03/29/2025 1:53 PM [facility] Albumin 3.7 3.2 - 5.0 g/dL LAB CHEMISTRY METHOD 03/29/2025 1:53 PM [facility] Total Bilirubin 0.2 0.0 - 1.4 mg/dL LAB CHEMISTRY METHOD 03/29/2025 1:53 PM [facility] Blood Venous blood specimen / Unknown Venipuncture / Unknown 03/29/2025 7:15 AM EDT 03/29/2025 12:30 PM EDT us Ailyn Stringer MD LAB BLOOD ORDERABLES Fin al Result [facility] [address] [place] [address], * Complete blood count (03/29/2025 7:15 AM EDT) [facility] WBC 7.1 4.8 - 10.8 K/mcL LAB HEMETOLOGY METHOD 03/29/2025 2:36 PM EDT [facility] RBC 4.90 4.50 - 5.50 M/mcL LAB HEMETOLOGY METHOD 03/29/2025 2:36 PM EDT [facility] Hemoglobin 15.4 13.5 - 17.5 g/dL LAB HEMETOLOGY METHOD 03/29/2025 2:36 PM EDT [facility] Hematocrit 46.9 42.0 - 54.0 % LAB HEMETOLOGY METHOD 03/29/2025 2:36 PM EDT [facility] MCV 96.1 79.0 - 98.0 FL LAB HEMETOLOGY METHOD 03/29/2025 2:36 PM EDT [facility] MCH 31.6 27.0 - 32.0 pcg LAB HEMETOLOGY METHOD 03/29/2025 2:36 PM EDT [facility] MCHC 32.8 32.0 - 37.0 g/dL LAB HEMETOLOGY METHOD 03/29/2025 2:36 PM EDT [facility] RDW 12.8 11.0 - 15.0 % LAB HEMETOLOGY METHOD 03/29/2025 2:36 PM EDT [facility] Platelets 271 130 - 400 K/mcL LAB HEMETOLOGY METHOD 03/29/2025 2:36 PM EDT [facility] MPV 10.9 7.0 - 11.0 FL LAB HEMETOLOGY METHOD 03/29/2025 2:36 PM EDT [facility] NRBC 0.0 <1.0 % LAB HEMETOLOG METHOD 03/29/2025 2:36 PM EDT [facility] NRBC Absolute 0.00 <0.10 K/mcL LAB HEMETOLOGY METHOD 03/29/2025 2:36 PM EDT [facility] Blood Venous blood specimen / Unknown Venipuncture / Unknown 03/29/2025 7:15 AM EDT 03/29/2025 12:32 PM EDT us Ailyn Stringer MD LAB BLOOD ORDERABLES Fin al Result [facility] [address] [place] [address], documented in this encounter Visit Diagnoses Diagnosis Malignant neoplasm of brain, unspecified (CMS/HCC V24, CMS/HCC V28) documented in this encounter Care Teams Director Consumer Affairs Relationship Specialty Start Date End Date Physician, No Pcp PCP - General 11/05/24 documented as of this encounter
--- OUTSIDE RECORDS SUMMARY | 2025-09-07 00:31 | XMS_ITS | Clinical Summary ---
Author Organization [facility] Address [address] [place] [address] Phone Care Team Providers Care Lead Sharepoint Developer Name Role Phone Physician, No Pcp [...] at rehab, has plateaued, was sent to [facility] and rehab [place] after discharge from [facility] 11/10/2024. Patient had C-spine MRI 11/05/2024 with [...] leg pain 01/22/2025 Weakness 11/10/2024 Seizure disorder ([facility] V24, [facility] V28) 10/13 Alcohol withdrawal ([facility] V24, [facility] V28) Seizure disorder ([facility] V24, [facility] V28) 10/12 Alcohol abuse 11/02/2024 Brain lesion 11/02/2024 Assessment & Plan (03/04/2025 5:34 PM EDT): Patient is s/p left frontal craniotomy for resection of tumor, meningioma, by Dr. Malone approximately 2004, patient believes surgery was at [facility]. He had recent hospital admission for frequent falls, history of EtOH use, stopped drinking November 11, 2024. He has seizure disorder, no recent seizures per patient. He sees Dr. Brito at [facility] neurology for tremors, short-term memory problems, seizures, [...] wear them. Patient had brain MRI 11/05/2024 [facility] that shows 3 extra-axial masses on contrasted imaging (Left frontal extra-axial masses (4 total) with mild restricted diffusion and enhancement 2 mm and 1.1 cm along the interhemispheric falx (series 11 image 41 and 33), just above the resection cavity measuring 1.2 (image 39), and in the peripheral left frontal lobe measuring 1.4 cm (image 49). I looked back at imaging from [facility] including brain MRI with and without contrast [...] middle frontal gyrus. Older MRI brain 07/10/2006 [facility] showed postop changes left superior frontal craniotomy [...] 03/04/2025: I reviewed patient's brain imaging from [facility] and [facility] with Dr. Vaughan from 2011 to current, she notes the 3 small meningiomas, which have grown over time, she is recommending radiosurgery XRT for these masses, is not recommending reexploration and craniotomy to resect the tumors, there is persistent gliosis (we reviewed prior MRI 2011 at [facility] flair images with current MRI, does not appear to be edema surrounding the masses) and encephalomalacia in the surgical bed, patient has history of seizures, likely would worsen with additional brain surgery. I will refer to [facility] radiation oncology department at [facility]. Falls frequently 11/02/2024 Resolved Problems Problem Noted Date Diagnosed Date Resolved Date Left arm weakness 10/27/2024 10/31/2024 Encounters Date Type Department Care Team Description 08/02/2025 Telephone [facility] [address] [place] [address] Dodie Vaughan MD from Last 3 Months Immunizations Immunization Administration Dates Next Due Influenza trivalent, 0.5mL, preservative free (Fluarix; FluLaval; Fluzone) ages 6mo and older (Afluria) 3 years and older 01/19/2025 Tdap Tetanus diptheria acell ular pertussis (Boostrix; Adacel) 7yo and older 06/13/2023 Surgical History Surgery Date Site/Laterality Comments BRAIN TUMOR EXCISION 08/14/2004 Left Left frontal craniotomy, resection of meningioma, Dr. Malone Medical History Medical History Date Comments Stroke (CMS/HCC V24, CMS/HCC V28) ETOH abuse Seizures (CMS/HCC V24, CMS/HCC V28) Depression with anxiety Tobacco use Family [...] Health Maintenance Due Date Last Done Comments Colorectal Cancer Screening: Colonoscopy 1966 Hepatitis A Vaccines (1 of 2 - Risk 2-dose series) 1985 Hepatitis B Vaccines (1 of 3 - 19+ 3-dose series) 1985 Pneumococcal Vaccine: 50+ Years (1 of 2 - PCV) 1985 RSV Immunization Adult Patients (1 - Risk 50-74 years 1-dose series) 01/18/2016 Zoster Vaccines (1 of 2) 01/18/2016 Cholesterol Screening (Lipid Panel) 12/10/2023 HIV Screening 12/10/2023 Hepatitis C Screening 12/10/2023 Medicare Annual Wellness Visit 12/10/2023 Social Influencers of Health Screening 12/10/2023 Depression Screening 11/11/2024 Influenza Vaccine (#1) 2025 01/19/2025 DTaP,Tdap,and Td Vaccines (2 - Td or Tdap) 06/13/2033 06/13/2023 COVID-19 Vaccine Completed 01/27/2025, 09/2022, 04/18/2021, Additional history exists HIB Vaccines Aged Out No longer eligi [...] on patient's age to complete this topic Insurance [place] Advance Directives Documents on File Type Date Recorded Patient Cloth Calender Expl anation Advance Directives and Living Will [...] currently active code status orders. Care Teams Lead Sharepoint Developer Relationship Specialty Start Date End Date Physician, No Pcp PCP - General 11/05/24
--- OUTSIDE RECORDS SUMMARY | 2025-09-07 00:31 | XMS_ITS | Encounter Summary ---
Author Organization [facility] Address [address] [place] [address] Care Team Providers Care Rail Car Repair Carman Name Role Phone Physician, No Pcp Primary Care Provider Unavaila ble Encounter Details Date Type Department Care Team (Late st Contact Info) Description 01/01/2025 Lab Requisition [facility] - Main Lab [address] [facility] [place] [address] Social History Tobacco Use Types [...] Assessment Author No 11/06/2024 6:22 AM EST [place] , Jigna, RN documented as of this encounter Mental [...] on filedocumented in this encounter Care Teams Rail Car Repair Carman Relationship Specialty Start Date End Date Physician, No Pcp PCP - General 11/05/24 documented as of this encounter
--- OUTSIDE RECORDS SUMMARY | 2025-09-07 00:31 | XMS_ITS | Encounter Summary ---
Author Organization [facility] Address [address] [place] [address] Care Team Providers Care Sheet Metal Worker Supervisor Name Role Phone Physician, No Pcp Primary Care Provider Unavaila ble Encounter Details Date Type Department Care Team (Late st Contact Info) Description 01/22/[address] [facility] - Main Lab [address] [facility] [place] [address] Ailyn Stringer MD [address] [phone] Epilepsy, unspecified, intractable, without status epilepticus (CMS/HCC [...] LAB CHEMISTRY METHOD 01/22/2025 10:30 AM EDT [facility] Blood Venous blood specimen / Unknown Venipuncture / Unknown 01/22/2025 6:50 AM EDT 01/22/2025 9:22 AM EDT us Ailyn Stringer MD LAB BLOOD ORDERABLES Fin al Result [facility] [address] [place] [address], documented in this encounter Visit Diagnoses Diagnosis Epilepsy, unspecified, intractable, without status epilepticus (CMS/HCC V24, CMS/HCC V28) documented in this encounter Care Teams Sheet Metal Worker Supervisor Relationship Specialty Start Date End Date Physician, No Pcp PCP - General 11/05/24 documented as of this encounter
--- OUTSIDE RECORDS SUMMARY | 2025-09-07 00:31 | XMS_ITS | Encounter Summary ---
Author Organization [facility] Address [address] [place] [address] Care Team Providers Care Interpersonal Communications Professor Name Role Phone Physician, No Pcp Primary Care Provider Unavaila ble Encounter Details Date Type Department Care Team (Late st Contact Info) Description 01/03/2025 Lab Requisition [facility] - Main Lab [address] [facility] [place] [address] Ailyn Stringer MD [address] [phone] Encounter for therapeutic drug level monitoring Social [...] LAB CHEMISTRY METHOD 01/03/2025 12:07 PM EST [facility] Blood Venous blood specimen / Unknown Venipuncture / Unknown 01/03/2025 5:26 AM EST 01/03/2025 11:19 AM EST us Ailyn Stringer MD LAB BLOOD ORDERABLES Fin al Result [facility] [address] [place] [address], documented in this encounter Visit Diagnoses Diagnosis Encounter for therapeutic drug level monitoring documented in this encounter Care Teams Interpersonal Communications Professor Relationship Specialty Start Date End Date Physician, No Pcp PCP - General 11/05/24 documented as of this encounter
--- OUTSIDE RECORDS SUMMARY | 2025-09-07 00:31 | XMS_ITS | Encounter Summary ---
Author Organization [facility] Address [address] [place] [address] Care Team Providers Care Veneer Sheet Repairer Name Role Phone Physician, No Pcp Primary Care Provider Unavaila ble Encounter Details Date Type Department Care Team (Late st Contact Info) Description 12/31/2024 Lab Requisition [facility] - Main Lab [address] [facility] [place] [address] Ailyn Stringer MD [address] [phone] Encounter for therapeutic drug level monitoring Social [...] monitoring documented in this encounter Care Teams Veneer Sheet Repairer Relationship Specialty Start Date End Date Physician, No Pcp PCP - General 11/05/24 documented as of this encounter
--- OUTSIDE RECORDS SUMMARY | 2025-09-07 00:31 | XMS_ITS | Encounter Summary ---
Author Organization Address [address] [place] [address] Care Team Providers Care Machine Ii Trimmer Name Role Phone Physician, No Pcp Primary Care Provider Unavaila ble Encounter Details Date Type Department Care Team (Late st Contact Info) Description 04/23/2025 Lab Requisition [facility] - Main Lab [address] [facility] [place] [address] Ailyn Stringer MD [address] [phone] Malignant neoplasm of brain, unspecified (CMS/HCC V24, [...] AM EDT Malignant neoplasm of brain, unspecified ([facility]/HCC V24, [facility] V28) COMPREHENSIVE METABOLIC PANEL Routine 04/26/2025 5:36 AM EDT Malignant neoplasm of brain, unspecified ([facility]/HCC V24, CMS/HCC V28) documented in this encounter Results * (ABNORMAL) Comprehensive metabolic panel (04/26/2025 5:36 AM EDT) Sodium 137 133 - 145 mmol/L LAB CHEMISTRY METHOD 04/26/2025 1:34 PM [facility] Potassium 3.7 3.5 - 5.5 mmol/L LAB CHEMISTRY METHOD 04/26/2025 1:34 PM [facility] Chloride 105 96 - 110 mmol/L LAB CHEMISTRY METHOD 04/26/2025 1:34 PM [facility] CO2 23 21 - 32 mmol/L LAB CHEMISTRY METHOD 04/26/2025 1:34 PM [facility] Anion Gap 9 3 - 11 LAB CHEMISTRY METHOD 04/26/2025 1:34 PM [facility] Glucose 123(H) 70 - 100 mg/dL LAB CHEMISTRY METHOD 04/26/2025 1:34 PM [facility] BUN 14 5 - 25 mg/dL LAB CHEMISTRY METHOD 04/26/2025 1:34 PM [facility] Creatinine 0.71 0.70 - 1.30 mg/dL LAB CHEMISTRY METHOD 04/26/2025 1:34 PM [facility] eGFR 106 >=60 mL/min/1. 73m2 LAB CHEMISTRY METHOD 04/26/2025 1:34 PM [facility] Comment:Calculation based on the Chronic Kidney Disease Epidemiology Collaboration (CKD-EPI) equation refit without adjustment for race. BUN/Creatinine Ratio 19.7 LAB CHEMISTRY METHOD 04/26/2025 1:34 PM [facility] Calcium 8.7 8.5 - 10.5 mg/dL LAB CHEMISTRY METHOD 04/26/2025 1:34 PM [facility] AST (SGOT) 22 10 - 42 unit/L LAB CHEMISTRY METHOD 04/26/2025 1:34 PM [facility] ALT (SGPT) 57 10 - 60 unit/L LAB CHEMISTRY METHOD 04/26/2025 1:34 PM [facility] Alkaline Phosphatase 152(H) 42 - 121 unit/L LAB CHEMISTRY METHOD 04/26/2025 1:34 PM [facility] Total Protein 6.7 6.0 - 8.0 g/dL LAB CHEMISTRY METHOD 04/26/2025 1:34 PM [facility] Albumin 3.6 3.2 - 5.0 g/dL LAB CHEMISTRY METHOD 04/26/2025 1:34 PM [facility] Total Bilirubin 0.2 0.0 - 1.4 mg/dL LAB CHEMISTRY METHOD 04/26/2025 1:34 PM [facility] Blood Venous blood specimen / Unknown Venipuncture / Unknown 04/26/2025 5:36 AM EDT 04/26/2025 10:43 AM EDT us Ailyn Stringer MD LAB BLOOD ORDERABLES Fin al Result [facility] [address] [place] [address], * Complete blood count (04/26/2025 5:36 AM EDT) [facility] WBC 6.8 4.8 - 10.8 K/mcL LAB HEMETOLOGY METHOD 04/26/2025 11:07 AM EDT [facility] RBC 4.70 4.50 - 5.50 M/mcL LAB HEMETOLOGY METHOD 04/26/2025 11:07 AM [facility] Hemoglobin 15.0 13.5 - 17.5 g/dL LAB HEMETOLOGY METHOD 04/26/2025 11:07 AM EDT [facility] Hematocrit 45.7 42.0 - 54.0 % LAB HEMETOLOGY METHOD 04/26/2025 11:07 AM T [facility] MCV 96.6 79.0 - 98.0 FL LAB HEMETOLOGY METHOD 04/26/2025 11:07 AM [facility] MCH 31.7 27.0 - 32.0 pcg LAB HEMETOLOGY METHOD 04/26/2025 11:07 AM EDT [facility] MCHC 32.8 32.0 - 37.0 g/dL LAB HEMETOLOGY METHOD 04/26/2025 11:07 AM T [facility] RDW 13.1 11.0 - 15.0 % LAB HEMETOLOGY METHOD 04/26/2025 11:07 AM [facility] Platelets 306 130 - 400 K/mcL LAB HEMETOLOGY METHOD 04/26/2025 11:07 AM [facility] MPV 10.8 7.0 - 11.0 FL LAB HEMETOLOGY METHOD 04/26/2025 11:07 AM EDT [facility] NRBC 0.0 <1.0 % LAB HEMETOLOGY METHOD 04/26/2025 11:07 AM EDT [facility] NRBC Absolute 0.00 <0.10 K/mcL LAB HEMETOLOGY METHOD 04/26/2025 11:07 AM EDT [facility] Blood Venous blood specimen / Unknown Venipuncture / Unknown 04/26/2025 5:36 AM EDT 04/26/2025 10:43 AM EDT us Ailyn Stringer MD LAB BLOOD ORDERABLES Fin al Result [facility] [address] [place] [address], documented in this encounter Visit Diagnoses Diagnosis Malignant neoplasm of brain, unspecified (CMS/HCC V24, CMS/HCC V28) documented in this encounter Care Teams Machine Ii Trimmer Relationship Specialty Start Date End Date Physician, No Pcp PCP - General 11/05/24 documented as of this encounter
--- OUTSIDE RECORDS SUMMARY | 2025-09-07 00:31 | XMS_ITS | Encounter Summary ---
Author Organization [facility] Address [address] [place] [address] Care Team Providers Care Warehouse Picker Name Role Phone Physician, No Pcp Primary Care Provider Unavaila ble Encounter Details Date Type Department Care Team (Late st Contact Info) Description 01/02/2025 Lab Requisition [facility] - Main Lab [address] [facility] [place] [address] Delvin Harrell MD [address] [place] [address] Encounter for therapeutic drug level monitoring Social [...] LAB CHEMISTRY METHOD 01/02/2025 10:29 AM EST [facility] Blood Venous blood specimen / Unknown Venipuncture / Unknown 01/02/2025 8:40 AM EST 01/02/2025 10:05 AM EST us Delvin Harrell MD LAB BLOOD ORDERABLES Final R esult [facility] [address] [place] [address], documented in this encounter Visit Diagnoses Diagnosis Encounter for therapeutic drug level monitoring documented in this encounter Care Teams Warehouse Picker Relationship Specialty Start Date End Date Physician, No Pcp PCP - General 11/05/24 documented as of this encounter
--- OUTSIDE RECORDS SUMMARY | 2025-09-07 00:31 | XMS_ITS | Encounter Summary ---
Author Organization [facility] Address [address] [place] [address] Care Team Providers Care Tree Tapping Laborer Name Role Phone Physician, No Pcp Primary Care Provider Unavaila ble Encounter Details Date Type Department Care Team (Late st Contact Info) Description 01/09/2025 Lab Requisition [facility] - Main Lab [address] [facility] [place] [address] Ailyn Stringer MD [address] [phone] Encounter for therapeutic drug level monitoring Social [...] LAB CHEMISTRY METHOD 01/10/2025 10:10 AM EST [facility] Blood Venous blood specimen / Unknown Venipuncture / Unknown 01/10/2025 8:15 AM EST 01/10/2025 9:11 AM EST us Ailyn Stringer MD LAB BLOOD ORDERABLES Fin al Result [facility] [address] [place] [address], documented in this encounter Visit Diagnoses Diagnosis Encounter for therapeutic drug level monitoring documented in this encounter Care Teams Tree Tapping Laborer Relationship Specialty Start Date End Date Physician, No Pcp PCP - General 11/05/24 documented as of this encounter
--- OUTSIDE RECORDS SUMMARY | 2025-09-07 00:31 | XMS_ITS | Encounter Summary ---
Author Organization [facility] Address [address] [place] [address] Care Team Providers Care Clinical Documentation Clerk Name Role Phone Physician, No Pcp Primary Care Provider Unavaila ble Encounter Details Date Type Department Care Team (Late st Contact Info) Description 04/16/2025 Lab Requisition [facility] - Main Lab [address] [facility] [place] [address] Ailyn Stringer MD [address] [phone] Malignant neoplasm of brain, unspecified (CMS/HCC V24, [...] AM EDT Malignant neoplasm of brain, unspecified ([facility]/HCC V24, [facility] V28) COMPREHENSIVE METABOLIC PANEL Routine 04/19/2025 6:05 AM EDT Malignant neoplasm of brain, unspecified ([facility]/HCC V24, [facility]/HCC V28) documented in this encounter Results * (ABNORMAL) Comprehensive metabolic panel (04/19/2025 6:05 AM EDT) Sodium 142 133 - 145 mmol/L LAB CHEMISTRY METHOD 04/19/2025 12:43 PM [facility] Potassium 4.1 3.5 - 5.5 mmol/L LAB CHEMISTRY METHOD 04/19/2025 12:43 PM [facility] Chloride 110 96 - 110 mmol/L LAB CHEMISTRY METHOD 04/19/2025 12:43 PM [facility] CO2 23 21 - 32 mmol/L LAB CHEMISTRY METHOD 04/19/2025 12:43 PM [facility] Anion Gap 9 3 - 11 LAB CHEMISTRY METHOD 04/19/2025 12:43 PM [facility] Glucose 116(H) 70 - 100 mg/dL LAB CHEMISTRY METHOD 04/19/2025 12:43 PM [facility] BUN 16 5 - 25 mg/dL LAB CHEMISTRY METHOD 04/19/2025 12:43 PM [facility] Creatinine 0.85 0.70 - 1.30 mg/dL LAB CHEMISTRY METHOD 04/19/2025 12:43 PM [facility] eGFR 100 >=60 mL/min/1. 73m2 LAB CHEMISTRY METHOD 04/19/2025 12:43 PM [facility] Comment:Calculation based on the Chronic Kidney Disease Epidemiology Collaboration (CKD-EPI) equation refit without adjustment for race. BUN/Creatinine Ratio 18.8 LAB CHEMISTRY METHOD 04/19/2025 12:43 PM [facility] Calcium 8.5 8.5 - 10.5 mg/dL LAB CHEMISTRY METHOD 04/19/2025 12:43 PM [facility] AST (SGOT) 24 10 - 42 unit/L LAB CHEMISTRY METHOD 04/19/2025 12:43 PM [facility] ALT (SGPT) 47 10 - 60 unit/L LAB CHEMISTRY METHOD 04/19/2025 12:43 PM [facility] Alkaline Phosphatase 162(H) 42 - 121 unit/L LAB CHEMISTRY METHOD 04/19/2025 12:43 PM [facility] Total Protein 6.8 6.0 - 8.0 g/dL LAB CHEMISTRY METHOD 04/19/2025 12:43 PM [facility] Albumin 3.5 3.2 - 5.0 g/dL LAB CHEMISTRY METHOD 04/19/2025 12:43 PM [facility] Total Bilirubin 0.2 0.0 - 1.4 mg/dL LAB CHEMISTRY METHOD 04/19/2025 12:43 PM [facility] Blood Venous blood specimen / Unknown Venipuncture / Unknown 04/19/2025 6:05 AM EDT 04/19/2025 10:28 AM EDT us Ailyn Stringer MD LAB BLOOD ORDERABLES Fin al Result [facility] [address] [place] [address], * (ABNORMAL) Complete blood count (04/19/2025 6:05 AM EDT) [facility] WBC 7.6 4.8 - 10.8 K/mcL LAB HEMETOLOGY METHOD 04/19/2025 2:[address] [facility] RBC 4.60 4.50 - 5.50 M/mcL LAB HEMETOLOGY METHOD 04/19/2025 2:[address] [facility] Hemoglobin 14.6 13.5 - 17.5 g/dL LAB HEMETOLOGY METHOD 04/19/2025 2:[address] [facility] Hematocrit 46.1 42.0 - 54.0 % LAB HEMETOLOGY METHOD 04/19/2025 2:[address] [facility] MCV 99.4(H) 79.0 - 98.0 FL LAB HEMETOLOGY METHOD 04/19/2025 2:[address] [facility] MCH 31.5 27.0 - 32.0 pcg LAB HEMETOLOGY METHOD 04/19/2025 2:[address] [facility] MCHC 31.7(L) 32.0 - 37.0 g/dL LAB HEMETOLOGY METHOD 04/19/2025 2:[address] [facility] RDW 13.2 11.0 - 15.0 % LAB HEMETOLOGY METHOD 04/19/2025 2:[address] [facility] Platelets 308 130 - 400 K/mcL LAB HEMETOLOGY METHOD 04/19/2025 2:[address] [facility] MPV 10.8 7.0 - 11.0 FL LAB HEMETOLOGY METHOD 04/19/2025 2:[address] [facility] NRBC 0.0 <1.0 % LAB HEMETOLOGY METHOD 04/19/2025 2:[address] [facility] NRBC Absolute 0.00 <0.10 K/mcL LAB HEMETOLOGY METHOD 04/19/2025 2:[address] [facility] Blood Venous blood specimen / Unknown Venipuncture / Unknown 04/19/2025 6:05 AM EDT 04/19/2025 10:27 AM EDT us Ailyn Stringer MD LAB BLOOD ORDERABLES Fin al Result [facility] [address] [place] [address], documented in this encounter Visit Diagnoses Diagnosis Malignant neoplasm of brain, unspecified (CMS/HCC V24, CMS/HCC V28) documented in this encounter Care Teams Clinical Documentation Clerk Relationship Specialty Start Date End Date Physician, No Pcp PCP - General 11/05/24 documented as of this encounter
--- OUTSIDE RECORDS SUMMARY | 2025-09-07 00:31 | XMS_ITS | Encounter Summary ---
Author Organization [facility] Address [address] [place] [address] Care Team Providers Care City Letter Carrier Name Role Phone Physician, No Pcp Primary Care Provider Unavaila ble Encounter Details Date Type Department Care Team (Late st Contact Info) Description 12/30/2024 Lab Requisition [facility] - Main Lab [address] [facility] [place] [address] Ailyn Stringer MD [address] [phone] Encounter for therapeutic drug level monitoring Social [...] LAB CHEMISTRY METHOD 12/31/2024 11:37 AM EST [facility] Blood Venous blood specimen / Unknown Venipuncture / Unknown 12/31/2024 5:09 AM EST 12/31/2024 10:43 AM EST us Ailyn Stringer MD LAB BLOOD ORDERABLES Fin al Result [facility] [address] [place] [address], documented in this encounter Visit Diagnoses Diagnosis Encounter for therapeutic drug level monitoring documented in this encounter Care Teams City Letter Carrier Relationship Specialty Start Date End Date Physician, No Pcp PCP - General 11/05/24 documented as of this encounter
--- OUTSIDE RECORDS SUMMARY | 2025-09-07 00:31 | XMS_ITS | Encounter Summary ---
Author Organization [facility] Address [address] [place] [address] Care Team Providers Care Grocery Checker Name Role Phone Physician, No Pcp Primary Care Provider Unavaila ble Encounter Details Date Type Department Care Team (Late st Contact Info) Description 12/11/2024 Lab Requisition [facility] - Main Lab 299 [facility] [place] [address] Ailyn Stringer MD [address] [phone] Malignant neoplasm of brain, unspecified (CMS/HCC V24, [...] mmol/L LAB CHEMISTRY METHOD 12/14/2024 1:35 PM [facility] Potassium 3.6 3.5 - 5.5 mmol/L LAB CHEMISTRY METHOD 12/14/2024 1:35 PM [facility] Chloride 106 96 - 110 mmol/L LAB CHEMISTRY METHOD 12/14/2024 1:35 PM [facility] CO2 26 21 - 32 mmol/L LAB CHEMISTRY METHOD 12/14/2024 1:35 PM [facility] Anion Gap 8 3 - 11 LAB CHEMISTRY METHOD 12/14/2024 1:35 PM [facility] Glucose 141(H) 70 - 100 mg/dL LAB CHEMISTRY METHOD 12/14/2024 1:35 PM [facility] BUN 13 5 - 25 mg/dL LAB CHEMISTRY METHOD 12/14/2024 1:35 PM [facility] Creatinine 0.73 0.70 - 1.30 mg/dL LAB CHEMISTRY METHOD 12/14/2024 1:35 PM [facility] eGFR 105 >=60 mL/min/1. 73m2 LAB CHEMISTRY METHOD 12/14/2024 1:35 PM [facility] Comment:Calculation based on the Chronic Kidney Disease Epidemiology Collaboration (CKD-EPI) equation refit without adjustment for race. BUN/Creatinine Ratio 17.8 LAB CHEMISTRY METHOD 12/14/2024 1:35 PM [facility] Calcium 9.3 8.5 - 10.5 mg/dL LAB CHEMISTRY METHOD 12/14/2024 1:35 PM [facility] AST (SGOT) 16 10 - 42 unit/L LAB CHEMISTRY METHOD 12/14/2024 1:35 PM [facility] ALT (SGPT) 57 10 - 60 unit/L LAB CHEMISTRY METHOD 12/14/2024 1:35 PM [facility] Alkaline Phosphatase 104 42 - 121 unit/L LAB CHEMISTRY METHOD 12/14/2024 1:35 PM [facility] Total Protein 6.8 6.0 - 8.0 g/dL LAB CHEMISTRY METHOD 12/14/2024 1:35 PM [facility] Albumin 3.7 3.2 - 5.0 g/dL LAB CHEMISTRY METHOD 12/14/2024 1:35 PM [facility] Total Bilirubin 0.3 0.0 - 1.4 mg/dL LAB CHEMISTRY METHOD 12/14/2024 1:35 PM [facility] Blood Venous blood specimen / Unknown 12/14/2024 7:40 AM EST 12/14/2024 1:27 PM EST us Ailyn Stringer MD LAB BLOOD ORDERABLES Fin al Result [facility] [address] [place] [address], [place] [phone] * (ABNORMAL) Complete blood count (12/14/2024 7:40 AM EST) [facility] WBC 6.8 4.8 - 10.8 K/mcL LAB HEMETOLOGY METHOD 12/14/2024 12:44 PM [facility] RBC 4.60 4.50 - 5.50 M/mcL LAB HEMETOLOGY METHOD 12/14/2024 12:44 PM [facility] Hemoglobin 14.8 13.5 - 17.5 g/dL LAB HEMETOLOGY METHOD 12/14/2024 12:44 PM [facility] Hematocrit 45.5 42.0 - 54.0 % LAB HEMETOLOGY METHOD 12/14/2024 12:44 PM [facility] MCV 98.3(H) 79.0 - 98.0 FL LAB HEMETOLOGY METHOD 12/14/2024 12:44 PM [facility] MCH 32.0 27.0 - 32.0 pcg LAB HEMETOLOGY METHOD 12/14/2024 12:44 PM [facility] MCHC 32.5 32.0 - 37.0 g/dL LAB HEMETOLOGY METHOD 12/14/2024 12:44 PM [facility] RDW 12.7 11.0 - 15.0 % LAB HEMETOLOGY METHOD 12/14/2024 12:44 PM [facility] Platelets 291 130 - 400 K/mcL LAB HEMETOLOGY METHOD 12/14/2024 12:44 PM [facility] MPV 10.4 7.0 - 11.0 FL LAB HEMETOLOGY METHOD 12/14/2024 12:44 PM [facility] NRBC 0.0 <1.0 % LAB HEMETOLOGY METHOD 12/14/2024 12:44 PM [facility] NRBC Absolute 0.00 <0.10 K/mcL LAB HEMETOLOGY METHOD 12/14/2024 12:44 PM EST [facility] Blood Venous blood specimen / Unknown 12/14/2024 7:40 AM EST 12/14/2024 11:19 AM EST us Ailyn Stringer MD LAB BLOOD ORDERABLES Fin al Result [facility] [address] [place] [address], documented in this encounter Visit Diagnoses Diagnosis Malignant neoplasm of brain, unspecified (CMS/HCC V24, CMS/HCC V28) documented in this encounter Care Teams Grocery Checker Relationship Specialty Start Date End Date Physician, No Pcp PCP - General 11/05/24 documented as of this encounter
--- OUTSIDE RECORDS SUMMARY | 2025-09-07 00:31 | XMS_ITS | Encounter Summary ---
Author Organization [facility] Address [address] [place] [address] Care Team Providers Care Ski Lift Mechanic Name Role Phone Physician, No Pcp Primary Care Provider Unavaila ble Encounter Details Date Type Department Care Team (Late st Contact Info) Description 12/05/2024 Lab Requisition [facility] - Main Lab 299 [facility] [place] [address] Ailyn Stringer MD [address] [phone] Malignant neoplasm of brain, unspecified (CMS/HCC V24, [...] mmol/L LAB CHEMISTRY METHOD 12/07/2024 2:42 PM [facility] Potassium 3.7 3.5 - 5.5 mmol/L LAB CHEMISTRY METHOD 12/07/2024 2:42 PM [facility] Chloride 107 96 - 110 mmol/L LAB CHEMISTRY METHOD 12/07/2024 2:42 PM [facility] CO2 28 21 - 32 mmol/L LAB CHEMISTRY METHOD 12/07/2024 2:42 PM [facility] Anion Gap 4 3 - 11 LAB CHEMISTRY METHOD 12/07/2024 2:42 PM [facility] Glucose 123(H) 70 - 100 mg/dL LAB CHEMISTRY METHOD 12/07/2024 2:42 PM [facility] BUN 17 5 - 25 mg/dL LAB CHEMISTRY METHOD 12/07/2024 2:42 PM [facility] Creatinine 0.73 0.70 - 1.30 mg/dL LAB CHEMISTRY METHOD 12/07/2024 2:42 PM [facility] eGFR 105 >=60 mL/min/1. 73m2 LAB CHEMISTRY METHOD 12/07/2024 2:42 PM [facility] Comment:Calculation based on the Chronic Kidney Disease Epidemiology Collaboration (CKD-EPI) equation refit without adjustment for race. BUN/Creatinine Ratio 23.3 LAB CHEMISTRY METHOD 12/07/2024 2:42 PM [facility] Calcium 9.1 8.5 - 10.5 mg/dL LAB CHEMISTRY METHOD 12/07/2024 2:42 PM [facility] AST (SGOT) 25 10 - 42 unit/L LAB CHEMISTRY METHOD 12/07/2024 2:42 PM [facility] ALT (SGPT) 62(H) 10 - 60 unit/L LAB CHEMISTRY METHOD 12/07/2024 2:42 PM [facility] Alkaline Phosphatase 101 42 - 121 unit/L LAB CHEMISTRY METHOD 12/07/2024 2:42 PM [facility] Total Protein 6.6 6.0 - 8.0 g/dL LAB CHEMISTRY METHOD 12/07/2024 2:42 PM [facility] Albumin 3.6 3.2 - 5.0 g/dL LAB CHEMISTRY METHOD 12/07/2024 2:42 PM [facility] Total Bilirubin 0.2 0.0 - 1.4 mg/dL LAB CHEMISTRY METHOD 12/07/2024 2:42 PM [facility] Blood Venous blood specimen / Unknown Venipuncture / Unknown 12/07/2024 9:42 AM EST 12/07/2024 11:45 AM EST us Ailyn Stringer MD LAB BLOOD ORDERABLES Fin al Result [facility] [address] [place] [address], [place] [phone] * (ABNORMAL) Complete blood count (12/07/2024 9:42 AM EST) [facility] WBC 6.7 4.8 - 10.8 K/mcL LAB HEMETOLOGY METHOD 12/07/2024 2:21 PM EST [facility] RBC 4.60 4.50 - 5.50 M/mcL LAB HEMETOLOGY METHOD 12/07/2024 2:21 PM EST [facility] Hemoglobin 14.7 13.5 - 17.5 g/dL LAB HEMETOLOGY METHOD 12/07/2024 2:21 PM [facility] Hematocrit 44.6 42.0 - 54.0 % LAB HEMETOLOGY METHOD 12/07/2024 2:21 PM [facility] MCV 97.8 79.0 - 98.0 FL LAB HEMETOLOGY METHOD 12/07/2024 2:21 PM [facility] MCH 32.2(H) 27.0 - 32.0 pcg LAB HEMETOLOGY METHOD 12/07/2024 2:21 PM [facility] MCHC 33.0 32.0 - 37.0 g/dL LAB HEMETOLOGY METHOD 12/07/2024 2:21 PM [facility] RDW 12.8 11.0 - 15.0 % LAB HEMETOLOGY METHOD 12/07/2024 2:21 PM [facility] Platelets 286 130 - 400 K/mcL LAB HEMETOLOGY METHOD 12/07/2024 2:21 PM [facility] MPV 10.5 7.0 - 11.0 FL LAB HEMETOLOGY METHOD 12/07/2024 2:21 PM [facility] NRBC 0.0 <1.0 % LAB HEMETOLOGY METHOD 12/07/2024 2:21 PM [facility] NRBC Absolute 0.00 <0.10 K/mcL LAB HEMETOLOGY METHOD 12/07/2024 2:21 PM EST [facility] Blood Venous blood specimen / Unknown Venipuncture / Unknown 12/07/2024 9:42 AM EST 12/07/2024 11:45 AM EST us Ailyn Stringer MD LAB BLOOD ORDERABLES Fin al Result [facility] [address] [place] [address], documented in this encounter Visit Diagnoses Diagnosis Malignant neoplasm of brain, unspecified (CMS/HCC V24, CMS/HCC V28) documented in this encounter Care Teams Ski Lift Mechanic Relationship Specialty Start Date End Date Physician, No Pcp PCP - General 11/05/24 documented as of this encounter
--- OUTSIDE RECORDS SUMMARY | 2025-09-07 00:31 | XMS_ITS | Encounter Summary ---
Author Organization [facility] Address [address] [place] [address] Care Team Providers Care Intensive Care Unit Nurse Name Role Phone Physician, No Pcp Primary Care Provider Unavaila ble Encounter Details Date Type Department Care Team (Late st Contact Info) Description 04/30/2025 Lab Requisition [facility] - Main Lab 299 [facility] [place] [address] Ailyn Stringer MD [address] [phone] Malignant neoplasm of brain, unspecified (CMS/HCC V24, [...] Entry Date Author No 11/06/2024 6:22 AM Jgina Chávez RN documented in this encounter Plan of Treatment Not on file documented as of this encounter Procedures Procedure Name Priority Date/Time Associated Diagnosis Comments COMPLETE BLOOD COUNT Routine 05/03/2025 5:55 AM EDT Malignant neoplasm of brain, unspecified ([facility]/HCC V24, [facility] V28) COMPREHENSIVE METABOLIC PANEL Routine 05/03/2025 5:55 AM EDT Malignant neoplasm of brain, unspecified ([facility]/HCC V24, CMS/HCC V28) documented in this encounter Results * (ABNORMAL) Comprehensive metabolic panel (05/03/2025 5:55 AM EDT) Sodium 141 133 - 145 mmol/L LAB CHEMISTRY METHOD 05/03/2025 1:32 PM [facility] Potassium 3.8 3.5 - 5.5 mmol/L LAB CHEMISTRY METHOD 05/03/2025 1:32 PM [facility] Chloride 105 96 - 110 mmol/L LAB CHEMISTRY METHOD 05/03/2025 1:32 PM [facility] CO2 25 21 - 32 mmol/L LAB CHEMISTRY METHOD 05/03/2025 1:32 PM [facility] Anion Gap 11 3 - 11 LAB CHEMISTRY METHOD 05/03/2025 1:32 PM [facility] Glucose 118(H) 70 - 100 mg/dL LAB CHEMISTRY METHOD 05/03/2025 1:32 PM [facility] BUN 14 5 - 25 mg/dL LAB CHEMISTRY METHOD 05/03/2025 1:32 PM [facility] Creatinine 0.74 0.70 - 1.30 mg/dL LAB CHEMISTRY METHOD 05/03/2025 1:32 PM [facility] eGFR 104 >=60 mL/min/1. 73m2 LAB CHEMISTRY METHOD 05/03/2025 1:32 PM [facility] Comment:Calculation based on the Chronic Kidney Disease Epidemiology Collaboration (CKD-EPI) equation refit without adjustment for race. BUN/Creatinine Ratio 18.9 LAB CHEMISTRY METHOD 05/03/2025 1:32 PM [facility] Calcium 8.9 8.5 - 10.5 mg/dL LAB CHEMISTRY METHOD 05/03/2025 1:32 PM [facility] AST (SGOT) 23 10 - 42 unit/L LAB CHEMISTRY METHOD 05/03/2025 1:32 PM [facility] ALT (SGPT) 51 10 - 60 unit/L LAB CHEMISTRY METHOD 05/03/2025 1:32 PM [facility] Alkaline Phosphatase 165(H) 42 - 121 unit/L LAB CHEMISTRY METHOD 05/03/2025 1:32 PM [facility] Total Protein 6.7 6.0 - 8.0 g/dL LAB CHEMISTRY METHOD 05/03/2025 1:32 PM [facility] Albumin 3.3 3.2 - 5.0 g/dL LAB CHEMISTRY METHOD 05/03/2025 1:32 PM [facility] Total Bilirubin 0.3 0.0 - 1.4 mg/dL LAB CHEMISTRY METHOD 05/03/2025 1:32 PM [facility] Blood Venous blood specimen / Unknown Venipuncture / Unknown 05/03/2025 5:55 AM EDT 05/03/2025 11:29 AM EDT us Ailyn Stringer MD LAB BLOOD ORDERABLES Fin al Result [facility] [address] [place] [address], * Complete blood count (05/03/2025 5:55 AM EDT) Pathologist [facility] WBC 6.7 4.8 - 10.8 K/mcL LAB HEMETOLOGY METHOD 05/03/2025 12:24 PM EDT [facility] RBC 4.90 4.50 - 5.50 M/mcL LAB HEMETOLOGY METHOD 05/03/2025 12:24 PM EDT [facility] Hemoglobin 14.9 13.5 - 17.5 g/dL LAB HEMETOLOGY METHOD 05/03/2025 12:24 PM EDT [facility] Hematocrit 45.4 42.0 - 54.0 % LAB HEMETOLOGY METHOD 05/03/2025 12:24 PM EDT [facility] MCV 92.8 79.0 - 98.0 FL LAB HEMETOLOGY METHOD 05/03/2025 12:24 PM EDT [facility] MCH 30.5 27.0 - 32.0 pcg LAB HEMETOLOGY METHOD 05/03/2025 12:24 PM EDT [facility] MCHC 32.8 32.0 - 37.0 g/dL LAB HEMETOLOGY METHOD 05/03/2025 12:24 PM EDT [facility] RDW 13.2 11.0 - 15.0 % LAB HEMETOLOGY METHOD 05/03/2025 12:24 PM EDT [facility] Platelets 282 130 - 400 K/mcL LAB HEMETOLOGY METHOD 05/03/2025 12:24 PM EDT [facility] MPV 10.9 7.0 - 11.0 FL LAB HEMETOLOGY METHOD 05/03/2025 12:24 PM EDT [facility] NRBC 0.0 <1.0 % LAB HEMETOLOGY METHOD 05/03/2025 12:24 PM EDT [facility] NRBC Absolute 0.00 <0.10 K/mcL LAB HEMETOLOGY METHOD 05/03/2025 12:24 PM EDT [facility] Blood Venous blood specimen / Unknown Venipuncture / Unknown 05/03/2025 5:55 AM EDT 05/03/2025 11:29 AM EDT us Ailyn Stringer MD LAB BLOOD ORDERABLES Fin al Result [facility] [address] [place] [address], documented in this encounter Visit Diagnoses Diagnosis Malignant neoplasm of brain, unspecified (CMS/HCC V24, CMS/HCC V28) documented in this encounter Care Teams Intensive Care Unit Nurse Relationship Specialty Start Date End Date Physician, No Pcp PCP - General 11/05/24 documented as of this encounter
--- OUTSIDE RECORDS SUMMARY | 2025-09-07 00:31 | XMS_ITS | Encounter Summary ---
Author Organization [facility] Address [address] [place] [address] Care Team Providers Care Climbing Guide Name Role Phone Physician, No Pcp Primary Care Provider Unavaila ble Encounter Details Date Type Department Care Team (Late st Contact Info) Description 01/07/2025 Lab Requisition [facility] - Main Lab 299 [facility] [place] [address] Ailyn Stringer MD [address] [phone] Encounter for therapeutic drug level monitoring Social [...] LAB CHEMISTRY METHOD 01/08/2025 11:[address] [facility] Blood Venous blood specimen / Unknown Venipuncture / Unknown 01/08/2025 5:42 AM EST 01/08/2025 10:11 AM EST us Ailyn Stringer MD LAB BLOOD ORDERABLES Fin al Result [facility] [address] [place] [address], documented in this encounter Visit Diagnoses Diagnosis Encounter for therapeutic drug level monitoring documented in this encounter Care Teams Climbing Guide Relationship Specialty Start Date End Date Physician, No Pcp PCP - General 11/05/24 documented as of this encounter
--- OUTSIDE RECORDS SUMMARY | 2025-09-07 00:31 | XMS_ITS | Encounter Summary ---
Author Organization [facility] Address [address] [place] [address] Care Team Providers Care Fresh Food Manager Name Role Phone Physician, No Pcp Primary Care Provider Unavaila ble Encounter Details Date Type Department Care Team (Late st Contact Info) Description 03/13/2025 Lab Requisition [facility] - Main Lab 299 [facility] [place] [address] Ailyn Stringer MD [address] [phone] Malignant neoplasm of brain, unspecified (CMS/HCC V24, [...] LAB CHEMISTRY METHOD 03/15/2025 3:33 PM EDT [facility] Blood Venous blood specimen / Unknown Venipuncture / Unknown 03/15/2025 10:17 AM EDT 03/15/2025 12:51 PM EDT us Ailyn Stringer MD LAB BLOOD ORDERABLES Fin al Result [facility] [address] [place] [address], [place] [phone] * (ABNORMAL) Comprehensive metabolic panel (03/15/2025 10:17 AM EDT) Pathologist [facility] Sodium 137 133 - 145 mmol/L LAB CHEMISTRY METHOD 03/15/2025 3:33 PM EDT [facility] Potassium 3.9 3.5 - 5.5 mmol/L LAB CHEMISTRY METHOD 03/15/2025 3:33 PM [facility] Chloride 106 96 - 110 mmol/L LAB CHEMISTRY METHOD 03/15/2025 3:33 PM [facility] CO2 22 21 - 32 mmol/L LAB CHEMISTRY METHOD 03/15/2025 3:33 PM [facility] Anion Gap 9 3 - 11 LAB CHEMISTRY METHOD 03/15/2025 3:33 PM [facility] Glucose 267(H) 70 - 100 mg/dL LAB CHEMISTRY METHOD 03/15/2025 3:33 PM [facility] BUN 15 5 - 25 mg/dL LAB CHEMISTRY METHOD 03/15/2025 3:33 PM [facility] Creatinine 0.72 0.70 - 1.30 mg/dL LAB CHEMISTRY METHOD 03/15/2025 3:33 PM [facility] eGFR 105 >=60 mL/min/1. 73m2 LAB CHEMISTRY METHOD 03/15/2025 3:33 PM [facility] Comment:Calculation based on the Chronic Kidney Disease Epidemiology Collaboration (CKD-EPI) equation refit without adjustment for race. BUN/Creatinine Ratio 20.8 LAB CHEMISTRY METHOD 03/15/2025 3:33 PM EDT [facility] Calcium 8.7 8.5 - 10.5 mg/dL LAB CHEMISTRY METHOD 03/15/2025 3:33 PM EDT [facility] AST (SGOT) 17 10 - 42 unit/L LAB CHEMISTRY METHOD 03/15/2025 3:33 PM [facility] ALT (SGPT) 40 10 - 60 unit/L LAB CHEMISTRY METHOD 03/15/2025 3:33 PM EDT [facility] Alkaline Phosphatase 164(H) 42 - 121 unit/L LAB CHEMISTRY METHOD 03/15/2025 3:33 PM EDT [facility] Total Protein 6.7 6.0 - 8.0 g/dL LAB CHEMISTRY METHOD [facility] Albumin 3.5 3.2 - 5.0 g/dL LAB CHEMISTRY METHOD 03/15/2025 3:33 PM [facility] Total Bilirubin 0.2 0.0 - 1.4 mg/dL LAB CHEMISTRY METHOD 03/15/2025 3:33 PM [facility] Blood Venous blood specimen / Unknown Venipuncture / Unknown 03/15/2025 10:17 AM EDT 03/15/2025 12:51 PM EDT Ailyn Stringer MD LAB BLOOD ORDERABLES Fin al Result [facility] [address] [place] [address], * (ABNORMAL) Complete blood count (03/15/2025 10:17 AM EDT) WBC 7.0 4.8 - 10.8 K/mcL LAB HEMETOLOGY METHOD 03/15/2025 2:09 PM EDT [facility] RBC 4.70 4.50 - 5.50 M/mcL LAB HEMETOLOGY METHOD 03/15/2025 2:09 PM EDT [facility] Hemoglobin 14.8 13.5 - 17.5 g/dL LAB HEMETOLOGY METHOD 03/15/2025 2:09 PM [facility] Hematocrit 44.6 42.0 - 54.0 % LAB HEMETOLOGY METHOD 03/15/2025 2:09 PM [facility] MCV 94.9 79.0 - 98.0 FL LAB HEMETOLOGY METHOD 03/15/2025 2:[facility] MCH 31.5 27.0 - 32.0 pcg LAB HEMETOLOGY METHOD 03/15/2025 2:09 PM [facility] MCHC 33.2 32.0 - 37.0 g/dL LAB HEMETOLOGY METHOD 03/15/2025 2:09 PM [facility] RDW 12.4 11.0 - 15.0 % LAB HEMETOLOGY METHOD 03/15/2025 2:09 PM [facility] Platelets 262 130 - 400 K/mcL LAB HEMETOLOGY METHOD 03/15/2025 2:09 PM [facility] MPV 11.8(H) 7.0 - 11.0 FL LAB HEMETOLOGY METHOD 03/15/2025 2:09 PM [facility] NRBC 0.0 <1.0 % LAB HEMETOLOGY METHOD 03/15/2025 2:09 PM [facility] NRBC Absolute 0.00 <0.10 K/mcL LAB HEMETOLOGY METHOD 03/15/2025 2:09 PM [facility] Blood Venous blood specimen / Unknown Venipuncture / Unknown 03/15/2025 10:17 AM EDT 03/15/2025 12:51 PM EDT Ailyn Stringer MD LAB BLOOD ORDERABLES Fin al Result [facility] [address] [place] [address], documented in this encounter Visit Diagnoses Diagnosis Malignant neoplasm of brain, unspecified (CMS/HCC V24, CMS/HCC V28) Other seizures (CMS/HCC V24, CMS/HCC V28) documented in this encounter Care Teams Fresh Food Manager Relationship Specialty Start Date End Date Physician, No Pcp PCP - General 11/05/24 documented as of this encounter
--- OUTSIDE RECORDS SUMMARY | 2025-09-07 00:31 | XMS_ITS | Encounter Summary ---
Author Organization [facility] Address [address] [place] [address] Care Team Providers Care Sales Account Associate Name Role Phone Physician, No Pcp Primary Care Provider Unavaila ble Encounter Details Date Type Department Care Team (Late st Contact Info) Description 01/05/2025 Lab Requisition [facility] - Main Lab 299 [facility] [place] [address] Ailyn Stringer MD [address] [phone] Encounter for therapeutic drug level monitoring Social [...] LAB CHEMISTRY METHOD 01/06/2025 10:55 AM EST [facility] Blood Venous blood specimen / Unknown Venipuncture / Unknown 01/06/2025 6:55 AM EST 01/06/2025 9:07 AM EST us Ailyn Stringer MD LAB BLOOD ORDERABLES Fin al Result [facility] [address] [place] [address], documented in this encounter Visit Diagnoses Diagnosis Encounter for therapeutic drug level monitoring documented in this encounter Care Teams Sales Account Associate Relationship Specialty Start Date End Date Physician, No Pcp PCP - General 11/05/24 documented as of this encounter
--- OUTSIDE RECORDS SUMMARY | 2025-09-07 00:31 | XMS_ITS | Encounter Summary ---
Author Organization [facility] Address [address] [place] [address] Care Team Providers Care Superintendent Automotive Name Role Phone Physician, No Pcp Primary Care Provider Unavaila ble Encounter Details Date Type Department Care Team (Late st Contact Info) Description 01/09/2025 Lab Requisition [facility] - Main Lab 299 [facility] [place] [address] Ailyn Stringer MD [address] [phone] Encounter for therapeutic drug level monitoring Social [...] LAB CHEMISTRY METHOD 01/09/2025 11:51 AM EST [facility] Blood Venous blood specimen / Unknown Venipuncture / Unknown 01/09/2025 5:53 AM EST 01/09/2025 9:58 AM EST us Ailyn Stringer MD LAB BLOOD ORDERABLES Fin al Result [facility] [address] [place] [address], documented in this encounter Visit Diagnoses Diagnosis Encounter for therapeutic drug level monitoring documented in this encounter Care Teams Superintendent Automotive Relationship Specialty Start Date End Date Physician, No Pcp PCP - General 11/05/24 documented as of this encounter
--- OUTSIDE RECORDS SUMMARY | 2025-09-07 00:31 | XMS_ITS | Encounter Summary ---
Author Organization [facility] Address [address] [place] [address] Care Team Providers Care Pasting Machine Offbearer Name Role Phone Physician, No Pcp Primary Care Provider Unavaila ble Encounter Details Date Type Department Care Team (Late st Contact Info) Description 12/29/2024 Lab Requisition [facility] - Main Lab [address] [facility] [place] [address] Ailyn Stringer MD [address] [phone] Other half-way (current) drug therapy Social History Tobacco Use [...] PLAIN Routine 12/29/2024 5:47 AM EST Other half-way (current) drug therapy PHENYTOIN LEVEL, TOTAL Routine 12/29/2024 5:47 AM EST Other half-way (current) drug therapy documented in this encounter Results * Red tube (12/29/2024 5:47 AM EST) Pathologist [facility] Extra Tube Hold for add-ons. 12/29/2024 9:01 AM EST [facility] Comment:Auto resulted. Blood Venous blood specimen / Unknown Venipuncture / Unknown 12/29/2024 5:47 AM EST 12/29/2024 7:36 AM EST us Ailyn Stringer MD LAB BLOOD ORDERABLES Fin al Result [facility] [address] [place] [address], * (ABNORMAL) Phenytoin level total (12/29/2024 5:47 AM EST) Pathologist [facility] Phenytoin Level 27.6(HH) 10.0 - 20.0 mcg/mL LAB CHEMISTRY METHOD 12/29/2024 8:49 AM EST [facility] Blood Venous blood specimen / Unknown Venipuncture / Unknown 12/29/2024 5:47 AM EST 12/29/2024 7:36 AM EST us Ailyn Stringer MD LAB BLOOD ORDERABLES Fin al Result [facility] [address] [place] [address], documented in this encounter Visit Diagnoses Diagnosis Other half-way (current) drug therapy documented in this encounter Care Teams Pasting Machine Offbearer Relationship Specialty Start Date End Date Physician, No Pcp PCP - General 11/05/24 documented as of this encounter
--- OUTSIDE RECORDS SUMMARY | 2025-09-07 00:31 | XMS_ITS | Encounter Summary ---
Author Organization [facility] Address [address] [place] [address] Care Team Providers Care Informatics Manager Name Role Phone Physician, No Pcp Primary Care Provider Unavaila ble Encounter Details Date Type Department Care Team (Late st Contact Info) Description [address] [facility] - Main Lab [address] [facility] [place] [place] [address] Ailyn Stringer MD [address] [phone] Malignant neoplasm of brain, unspecified (CMS/HCC V24, [...] mmol/L LAB CHEMISTRY METHOD 01/18/2025 11:47 AM [facility] Potassium 3.4(L) 3.5 - 5.5 mmol/L LAB CHEMISTRY METHOD 01/18/2025 11:47 AM [facility] Chloride 106 96 - 110 mmol/L LAB CHEMISTRY METHOD 01/18/2025 11:47 AM [facility] CO2 25 21 - 32 mmol/L LAB CHEMISTRY METHOD 01/18/2025 11:47 AM [facility] Anion Gap 10 3 - 11 LAB CHEMISTRY METHOD 01/18/2025 11:47 AM [facility] Glucose 172(H) 70 - 100 mg/dL LAB CHEMISTRY METHOD 01/18/2025 11:47 AM [facility] BUN 16 5 - 25 mg/dL LAB CHEMISTRY METHOD 01/18/2025 11:47 AM EDT [facility] Creatinine 0.87 0.70 - 1.30 mg/dL LAB CHEMISTRY METHOD 01/18/2025 11:47 AM EDT [facility] eGFR 99 >=60 mL/min/1. 73m2 LAB CHEMISTRY METHOD 01/18/2025 11:47 AM T [facility] Comment:Calculation based on the Chronic Kidney Disease Epidemiology Collaboration (CKD-EPI) equation refit without adjustment for race. BUN/Creatinine Ratio 18.4 LAB CHEMISTRY METHOD 01/18/2025 11:47 AM T [facility] Calcium 8.8 8.5 - 10.5 mg/dL LAB CHEMISTRY METHOD 01/18/2025 11:47 AM [facility] Blood Venous blood specimen / Unknown Venipuncture / Unknown 01/18/2025 8:00 AM EDT 01/18/2025 10:35 AM EDT us Ailyn Stringer MD LAB BLOOD ORDERABLES Fin al Result [facility] [address] [place] [address], * (ABNORMAL) Complete blood count (01/18/2025 8:00 AM EDT) WBC 8.1 4.8 - 10.8 K/mcL LAB HEMETOLOGY METHOD 01/18/2025 11:21 AM EDT [facility] RBC 4.60 4.50 - 5.50 M/mcL LAB HEMETOLOGY METHOD 01/18/2025 11:21 AM EDT [facility] Hemoglobin 15.1 13.5 - 17.5 g/dL LAB HEMETOLOGY METHOD 01/18/2025 11:21 AM T [facility] Hematocrit 45.2 42.0 - 54.0 % LAB HEMETOLOGY METHOD 01/18/2025 11:21 AM EDT [facility] MCV 97.6 79.0 - 98.0 FL LAB HEMETOLOGY METHOD 01/18/2025 11:21 AM EDT [facility] MCH 32.6(H) 27.0 - 32.0 pcg LAB HEMETOLOGY METHOD 01/18/2025 11:21 AM T [facility] MCHC 33.4 32.0 - 37.0 g/dL LAB HEMETOLOGY METHOD 01/18/2025 11:21 AM EDT [facility] RDW 12.4 11.0 - 15.0 % LAB HEMETOLOGY METHOD 01/18/2025 11:21 AM [facility] Platelets 276 130 - 400 K/mcL LAB HEMETOLOGY METHOD 01/18/2025 11:21 AM [facility] MPV 10.6 7.0 - 11.0 FL LAB HEMETOLOGY METHOD 01/18/2025 11:21 AM [facility] NRBC 0.0 <1.0 % LAB HEMETOLOGY METHOD 01/18/2025 11:21 AM [facility] NRBC Absolute 0.00 <0.10 K/mcL LAB HEMETOLOGY METHOD 01/18/2025 11:21 AM [facility] Blood Venous blood specimen / Unknown Venipuncture / Unknown 01/18/2025 8:00 AM EDT 01/18/2025 10:36 AM EDT us Ailyn Stringer MD LAB BLOOD ORDERABLES Fin al Result [facility] [address] [place] [address], documented in this encounter Visit Diagnoses Diagnosis Malignant neoplasm of brain, unspecified (CMS/HCC V24, CMS/HCC V28) documented in this encounter Care Teams Informatics Manager Relationship Specialty Start Date End Date Physician, No Pcp PCP - General 11/05/24 documented as of this encounter
--- OUTSIDE RECORDS SUMMARY | 2025-09-07 00:31 | XMS_ITS | Encounter Summary ---
Author Organization [facility] Address [address] [place] [address] Care Team Providers Care Junk Dealer Name Role Phone Physician, No Pcp Primary Care Provider Unavaila ble Encounter Details Date Type Department Care Team (Late st Contact Info) Description 12/20/2024 Lab Requisition [facility] - Main Lab [address] [facility] [place] [address] Ailyn Stringer MD [address] [phone] Malignant neoplasm of brain, unspecified (CMS/HCC V24, [...] mmol/L LAB CHEMISTRY METHOD 12/21/2024 3:[address] [facility] Potassium 4.1 3.5 - 5.5 mmol/L LAB CHEMISTRY METHOD 12/21/2024 3:[address] [facility] Chloride 109 96 - 110 mmol/L LAB CHEMISTRY METHOD 12/21/2024 3:[address] [facility] CO2 24 21 - 32 mmol/L LAB CHEMISTRY METHOD 12/21/2024 3:[address] [facility] Anion Gap 6 3 - 11 LAB CHEMISTRY METHOD 12/21/2024 3:[address] [facility] Glucose 90 70 - 100 mg/dL LAB CHEMISTRY METHOD 12/21/2024 3:[address] [facility] BUN 18 5 - 25 mg/dL LAB CHEMISTRY METHOD 12/21/2024 3:[address] [facility] Creatinine 0.70 0.70 - 1.30 mg/dL LAB CHEMISTRY METHOD 12/21/2024 3:[address] [facility] eGFR 107 >=60 mL/min/1. 73m2 LAB CHEMISTRY METHOD 12/21/2024 3:[address] [facility] Comment:Calculation based on the Chronic Kidney Disease Epidemiology Collaboration (CKD-EPI) equation refit without adjustment for race. BUN/Creatinine Ratio 25.7 LAB CHEMISTRY METHOD 12/21/2024 3:[address] [facility] Calcium 8.8 8.5 - 10.5 mg/dL LAB CHEMISTRY METHOD 12/21/2024 3:[address] [facility] AST (SGOT) 20 10 - 42 unit/L LAB CHEMISTRY METHOD 12/21/2024 3:[address] [facility] ALT (SGPT) 49 10 - 60 unit/L LAB CHEMISTRY METHOD 12/21/2024 3:[address] [facility] Alkaline Phosphatase 109 42 - 121 unit/L LAB CHEMISTRY METHOD 12/21/2024 3:[address] [facility] Total Protein 6.7 6.0 - 8.0 g/dL LAB CHEMISTRY METHOD 12/21/2024 3:[address] [facility] Albumin 3.6 3.2 - 5.0 g/dL LAB CHEMISTRY METHOD 12/21/2024 3:[address] [facility] Total Bilirubin 0.1 0.0 - 1.4 mg/dL LAB CHEMISTRY METHOD 12/21/2024 3:[address] [facility] Blood Venous blood specimen / Unknown Venipuncture / Unknown 12/21/2024 10:23 AM EST 12/21/2024 11:20 AM EST us Ailyn Stringer MD LAB BLOOD ORDERABLES Fin al Result [facility] [address] [place] [address], * (ABNORMAL) Complete blood count (12/21/2024 10:23 AM EST) [facility] Signature WBC 6.6 4.8 - 10.8 K/mcL LAB HEMETOLOGY METHOD 12/21/2024 1:[address] [facility] RBC 4.40(L) 4.50 - 5.50 M/mcL LAB HEMETOLOGY METHOD 12/21/2024 1:[address] [facility] Hemoglobin 14.3 13.5 - 17.5 g/dL LAB HEMETOLOGY METHOD 12/21/2024 1:[address] [facility] Hematocrit 42.8 42.0 - 54.0 % LAB HEMETOLOGY METHOD 12/21/2024 1:[address] [facility] MCV 97.3 79.0 - 98.0 FL LAB HEMETOLOGY METHOD 12/21/2024 1:[address] [facility] MCH 32.5(H) 27.0 - 32.0 pcg LAB HEMETOLOGY METHOD 12/21/2024 1:[address] [facility] MCHC 33.4 32.0 - 37.0 g/dL LAB HEMETOLOGY METHOD 12/21/2024 1:[address] [facility] RDW 12.6 11.0 - 15.0 % LAB HEMETOLOGY METHOD 12/21/2024 1:[address] [facility] Platelets 278 130 - 400 K/mcL LAB HEMETOLOGY METHOD 12/21/2024 1:[address] [facility] MPV 10.6 7.0 - 11.0 FL LAB HEMETOLOGY METHOD 12/21/2024 1:[address] [facility] NRBC 0.0 <1.0 % LAB HEMETOLOGY METHOD 12/21/2024 1:[address] [facility] NRBC Absolute 0.00 <0.10 K/mcL LAB HEMETOLOGY METHOD 12/21/2024 1:21 PM EST [facility] Blood Venous blood specimen / Unknown Venipuncture / Unknown 12/21/2024 10:23 AM EST 12/21/2024 11:20 AM EST us Ailyn Stringer MD LAB BLOOD ORDERABLES Fin al Result [facility] [address] [place] [address], documented in this encounter Visit Diagnoses Diagnosis Malignant neoplasm of brain, unspecified (CMS/HCC V24, CMS/HCC V28) documented in this encounter Care Teams Junk Dealer Relationship Specialty Start Date End Date Physician, No Pcp PCP - General 11/05/24 documented as of this encounter
[2025-09-07 00:32] LABS: IDNOW Serial# 55D5AD1C; Influenza B2 Negative (Negative)
[2025-09-07 00:39] LABS: Alanine Aminotransferase 69 U/L (0-40); Albumin Level 4.5 g/dL (3.5-5.0); Alkaline Phosphatase 128 U/L (39-117); Anion Gap 19 (12-20); Aspartate Amino Transferase 43 U/L (5-37); Blood Urea Nitrogen 6 mg/dL (9-16); Calcium 8.7 mg/dL (8.4-10.2); Carbon Dioxide 20 mmol/L (22-29); Chloride 105 mmol/L (96-108); Creatinine Clr Calc Pharmacy 162.9; Estimated Glomerular Filt Rate > 60; Magnesium 2.0 mg/dL (1.6-2.6); Potassium 4.1 mmol/L (3.3-5.1); Sodium 140 mmol/L (135-145); Total Protein 7.4 g/dL (6.5-8.0)
[2025-09-07] MEDS: Lactated Ringers 1,000 ML 999 ML IV (00:43)
[2025-09-07] MEDS: levETIRAcetam in NaCl (iso-os) 1,000 MG/100 ML PIGGYBACK 400 MG IV (00:44)
--- NOTE | 2025-09-07 00:59 | PC.NURSE ---
DIAMOND from home for unwitnessed fall +LOC unknown downtime. About 30 mins Later pt reportedly had a tonic clonic seizure. reported to EMS it lasted 10-15mins. Hx of seizure disorder Initially stated he took his meds as prescribed but later endorsed he did not take his meds today. PT drank 2 sleeves of nips today. Reports he drinks every other day average 1 sleeve at a time. Also complains of L arm pain from a fall 1 week ago POC [employer] [id number], -thinners PT placed on patient monitor, Ekg, labs drawn and sent down to lab. Girlfriend at bedside.
[2025-09-07 01:32] LABS: Free T4 (Free Thyroxine) 0.99 ng/dL (0.71-1.85)
--- NOTE | 2025-09-07 03:18 | PC.NURSE ---
alert and oriented with even and unlabored respirations. CIWA of 4, patient only complaining of right arm pain and restlessness. states he takes medications for insomnia and that he gets restless w/out these medications. fluids have infused, call carver within reach.
--- NOTE | 2025-09-07 05:25 | ED_ITS ---
HPI - Seizure General Chief Complaint: Seizure Stated Complaint: SEIZURES Time Seen by Provider: 09/06/25 23:32 Source: patient, EMS and RN notes reviewed Mode of arrival: EMS Limitations: no limitations History of Present Illness ED Provider: Dr. Ines Guevara HPI Narrative: 60-year-old male with a history of seizure disorder on Keppra and Dilantin, alcohol use disorder drinks about one sleeve of nips per day presenting after a seizure that occurred at home. It was an unwitnessed fall with an unknown downtime. There was loss of consciousness according to his who then witnessed him having a tonic-clonic seizure. Reportedly lasted 10-15 minutes. Patient reports he has taken his antiepileptics today including Keppra and Dilantin. Drinks every day about 10-20 nips of vodka. He does not take blood thinners. Denies illicit substance use. Denies stimulant use. Admits that he has been having frequent falls lately. States that he feels unsteady on his feet. No reported fever, headache, vision changes, stiff neck, chest pain, difficulty breathing, abdominal pain, nausea, vomiting, bowel changes or urinary complaints. Last drink was earlier today. Seizure History: Yes Place: Home Related Data Home Medications ?Medication ?Instructions ?Recorded ?Confirmed apixaban 5 mg tablet (Eliquis) 5 mg PO BID 12/26/24 duloxetine 20 mg capsule,delayed 20 mg PO BID 12/26/24 12/26/24 release trazodone 50 mg tablet 25 mg PO BEDTIME 12/26/24 primidone 50 mg tablet 50 mg PO DAILY 07/29/25 Previous Rx's ?Medication ?Instructions ?Recorded carbamazepine 200 mg tablet 600 mg (3 x 200 mg) PO BID 90 days 07/27/25 #540 tabs levetiracetam 750 mg tablet 1,500 mg (2 x 750 mg) PO B ID 90 07/27/25 days #360 tabs phenytoin sodium extended 100 mg 400 mg (4 x 100 mg) P O BID days 07/27/25 capsule #720 caps albuterol sulfate 90 mcg/actuation 1 inh inhalation Q6 H PRN shortness 08/01/25 aerosol inhaler (Ventolin HFA) of breath or wheezing # 8.5 grams fluticasone furoate 50 1 inh inhalation DAILY Undia gnosed 08/01/25 mcg-vilanterol 25 mcg/dose COPD #60 ea inhalation powder (Breo Ellipta) folic acid 1 mg tablet 1 mg PO DAILY Alcohol use di sorder 08/01/25 30 days #30 tabs gabapentin 100 mg capsule 100 mg PO TID 30 days #0 cap s 08/01/25 nicotine 21 mg/24 hr daily 21 mg transdermal DAILY 30 days 08/01/25 transdermal patch #30 ea prednisone 20 mg tablet 40 mg (2 x 20 mg) PO DAILY 3 0 days 08/01/25 #60 tabs thiamine mononitrate (vit B1) 100 100 mg PO DAILY 30 d ays #30 tabs 08/01/25 mg tablet ipratropium 0.5 mg-albuterol 3 mg 3 ml inhalation Q8H PRN sob/nguyen 08/02/25 (2.5 mg base)/3 mL nebulization #180 mL soln naltrexone 50 mg tablet 50 mg PO DAILY #30 tabs 07/13 01/05 Allergies Allergy/AdvReac Type Severity Reaction Status Date / Time No Known Allergies Allergy Verified 09/06/25 23:57 Review of Systems 2 Review of Systems: as per HPI, full review of systems performed and negative but for the above mentioned pertinent positives and negatives. [facility] Past Medical History Medical History DVT (deep venous thrombosis) Major depressive disorder Epilepsy Alcohol abuse Social History Social History Household Members: Family Housing: Other Do you presently have visiting nurse or other home services: No Alcohol intake: current Alcohol intake frequency: 3 or more drinks per day Alcohol type: hard liquor Patient Tobacco Use Status: Current everyday Tobacco user Tobacco use type: Cigarette Cigarettes Per Day: 10 Smoked in Last 30 Days: Yes e-Cigarette/Vaping Use: Never Used Second Hand Smoke Exposure: Yes Use of substances other than those prescribed or required for medical reasons: No Advance Directives: Yes Advance Directives on File: Yes Advance Directives Date on File: 12/29/24 Do you have a plan to hurt others: No Plan service: No Physical Exam 2 Exam: Exam: GENERAL: Appears intoxicated, GCS 13, eyes open to voice, slurred speech, no acute distress, unkempt. SKIN: Normal skin color for ethnicity, warm, dry, no rashes noted. HEENT: Normocephalic, atraumatic, no stridor, posterior oropharynx nonerythematous, dentition intact, EOMI, pupils are pinpoint bilaterally, reactive to light. NECK: Soft, supple, no step-offs, no deformities, no lymphadenopathy. CHEST: Heart regular tachycardia, no murmurs, symmetric chest rise and fall. PULMONARY: Clear to auscultation bilaterally, diminished at the bases, no labored breathing, no wheezes/rhales/rhonchi. ABDOMINAL: Soft, nondistended, positive bowel sounds in all quadrants. : Deferred. MUSCULOSKELETAL: Normal tone, full range of motion, no deformities, no peripheral edema. NEURO: GCS 13, eyes open to voice, slightly slurred speech, CN II through XII intact, equal strength and sensation bilateral upper and lower extremities, no focal neurologic deficits. PSYCHIATRIC: Flat affect, poor eye contact. Vital Signs: Vital Signs: Last Vital Signs Temp 97.8 F 09/07/25 06:01 Pulse 104 H 09/07/25 06:01 Resp 20 09/07/25 06:01 BP 136/77 09/07/25 06:01 Pulse Ox 96 09/07/25 06:01 O2 Del Method Room Air 09/07/25 06:01 BMI result Body Mass Index 39.8 Medications Administered Discontinued Medications Generic Name Dose Route Start Last Admin Trade Name Freq PRN Reason Stop Dose Admin Lactated Ringer's 1,000 mls @ 999 mls/hr 09/06/25 23:42 09/07/25 02:54 Lr IV 09/07/25 00:42 Infused .Q1H1M ONE Infusion Levetiracetam 1,000 mg in 100 mls @ 400 mls/hr 09/06/25 23:56 09/07/25 00:59 Keppra IV 09/07/25 00:10 Infused ONCE ONE Infusion Acetaminophen 1,000 mg in 100 mls @ 400 mls/hr 09/07/25 03:16 09/07/25 04:25 Ofirmev IV 09/07/25 03:30 Infused ONCE ONE Infusion Lorazepam 1 mg 09/07/25 03:31 09/07/25 03:41 Lorazepam 1 Mg Tablet PO 09/07/25 03:32 1 mg ONCE ONE Administration Medical Decision Making Medical Decision Making MDM Narrative: Patient presents today with chief complaint of seizure activity. Differential diagnosis includes breakthrough seizure, medication noncompliance, intracranial pathology such as hemorrhage or embolism, infectious process such as meningitis, stimulant use or drug toxicity, hyperthyroidism, electrolyte abnormality, nonepileptic seizure activity (psychogenic seizure activity), among many others. Patient reports that he is wanting alcohol detox. I suspect he is having breakthrough seizures secondary to either alcohol withdrawal or poor medication compliance. Plan for admission to hospitalist for further care and evaluation after initiating phenobarbital protocol. Admitted in guarded condition. Differential Diagnosis Differential Diagnoses: The differential diagnosis associated with the presentation includes (As above) Admission/Observation Consideration of admission/observation: Escalation of care including admission/observation considered Consult Healthcare Provider Management of the patient was discussed with: Hospitalist Lab Data [facility] Lab Attestation statement: I reviewed the patient's lab results. 09/07/25 00:01 09/07/25 00:01 Labs: Lab Results 09/06/25 09/07/25 09/07/25 Range/Units 23:43 00:01 00:03 WBC 7.1 (4.8-10.8) X10*3/uL RBC 5.05 (4.60-5.80) X10*6/uL Hgb 16.1 (14.0-18.0) g/dl Hct 47.6 (42.0-52.0) % MCV 94.3 (80.0-98.0) fL MCH 31.9 (27.0-33.0) pg MCHC 33.8 (31.0-36.0) g/dl RDW 13.6 (11.0-16.0) % Plt Count 258 D (160-400) X10*3/uL MPV 10.3 (9.4-12.4) fL Immature Gran % (Auto) 0.8 H (0.0-0.4) % Neut % (Auto) 70.8 (45-73) % Lymph % (Auto) 21.0 (20-40) % [place] % (Auto) 6.1 (2-11) % Eos % (Auto) 0.6 (0-4) % Baso % (Auto) 0.7 (0-2) % Lymph # (Auto) 1.5 (1.2-4.9) X10*3/uL [place] # (Auto) 0.4 (0.1-1.2) X10*3/uL Eos # (Auto) 0.0 (0.0-0.4) X10*3/uL Baso # (Auto) 0.1 (0.0-0.2) X10*3/uL Abs Immat Gran (auto) 0.06 H (0.00-0.03) X10*3/uL Absolute Neuts (auto) 5.0 (2.0-8.3) x10*3/uL Absolute Nucleated RBC 0.000 (0.0-0.012) X10*3/uL Nucleated RBC % (auto) 0.0 (0.0-0.2) /100WBC VBG pH (7.32-7.43) VBG pCO2 mmHg VBG pO2 mmHg VBG HCO3 (22-26) mmol/L VBG O2 Saturation % VBG Base Excess mmol/L Sodium 140 (135-145) mmol/L Potassium 4.1 (3.3-5.1) mmol/L Chloride 105 (96-108) mmol/L Carbon Dioxide 20 L (22-29) mmol/L Anion Gap 19 (12-20) BUN 6 L (9-16) mg/dL Creatinine 0.65 (0.5-1.4) mg/dL Estim Creat Clear Calc 162.9 Estimated GFR > 60 POC Glucose 261 H (60-115) mg/dL Random Glucose 258 H (60-115) mg/dL Calcium 8.7 D (8.4-10.2) mg/dL Magnesium 2.0 (1.6-2.6) mg/dL Total Bilirubin 0.2 (0.0-1.0) mg/dL AST 43 H (5-37) U/L ALT 69 H (0-40) U/L Alkaline Phosphatase 128 H (39-117) U/L Total Protein 7.4 (6.5-8.0) g/dL Albumin 4.5 (3.5-5.0) g/dL Beta-Hydroxybutyrate 0.29 H (0.02-0.27) mmol/L TSH 0.31 L (0.32-4.0) uIU/mL Free T4 0.99 (0.71-1.85) ng/dL Urine Color Yellow Urine Appearance Clear Urine pH 5.5 (5.0-9.0) Ur Specific [place] 1.015 (1.005-1.025) Urine Protein Negative (Neg-Trace) mg/dL Urine Glucose (UA) >=1000 H (Negative) mg/dL Urine Ketones Negative (Negative) mg/dL Urine Blood Negative (Negative) Urine Nitrite Negative (Negative) Ur Leukocyte Esterase Negative (Negative) Urine RBC 0-2 (0-2) /HPF Urine WBC 0-5 (0-5) /HPF Ur Squamous Epith Cells 0-2 (0-2) /HPF Urine Bacteria None Seen (None Seen) Hyaline Casts 0-2 (0-2) /LPF Urine Opiates Screen Not Detected (Not Detect) Ur Buprenorphine Scrn Not Detected (Not Detect) ng/mL Ur Oxycodone Screen Not Detected (Not Detect) ng/mL Urine Methadone Screen Not Detected (Not Detect) ng/mL Urine Fentanyl Screen Not Detected (Not Detect) Ur Barbiturates Screen Not Detected (Not Detect) Ur Phencyclidine Scrn Not Detected (Not Detect) Ur Amphetamines Screen Not Detected (Not Detect) U Benzodiazepines Scrn Not Detected (Not Detect) Urine Cocaine Screen Not Detected (Not Detect) U Marijuana (THC) Screen Not Detected (Not Detect) Ethyl Alcohol 168 mg/dL COVID-19 (YA) (Negative) COVID-19 Clin Com Influenza Type A (PAULINE) (Negative) Influenza Type B (PAULINE) (Negative) Influenza A & B Note 09/07/25 09/07/25 Range/Units 00:07 00:13 WBC (4.8-10.8) X10*3/uL RBC (4.60-5.80) X10*6/uL Hgb (14.0-18.0) g/dl Hct (42.0-52.0) % MCV (80.0-98.0) fL MCH (27.0-33.0) pg MCHC (31.0-36.0) g/dl RDW (11.0-16.0) % Plt Count (160-400) X10*3/uL MPV (9.4-12.4) fL Immature Gran % (Auto) (0.0-0.4) % Neut % (Auto) (45-73) % Lymph % (Auto) (20-40) % [place] % (Auto) (2-11) % Eos % (Auto) (0-4) % Baso % (Auto) (0-2) % Lymph # (Auto) (1.2-4.9) X10*3/uL [place] # (Auto) (0.1-1.2) X10*3/uL Eos # (Auto) (0.0-0.4) X10*3/uL Baso # (Auto) (0.0-0.2) X10*3/uL Abs Immat Gran (auto) (0.00-0.03) X10*3/uL Absolute Neuts (auto) (2.0-8.3) x10*3/uL Absolute Nucleated RBC (0.0-0.012) X10*3/uL Nucleated RBC % (auto) (0.0-0.2) /100WBC VBG pH 7.32 (7.32-7.43) VBG pCO2 48 mmHg VBG pO2 51 mmHg VBG HCO3 25 (22-26) mmol/L VBG O2 Saturation 75.0 % VBG Base Excess -1.2 mmol/L Sodium (135-145) mmol/L Potassium (3.3-5.1) mmol/L Chloride (96-108) mmol/L Carbon Dioxide (22-29) mmol/L Anion Gap (12-20) BUN (9-16) mg/dL Creatinine (0.5-1.4) mg/dL Estim Creat Clear Calc Estimated GFR POC Glucose (60-115) mg/dL Random Glucose (60-115) mg/dL Calcium (8.4-10.2) mg/dL Magnesium (1.6-2.6) mg/dL Total Bilirubin (0.0-1.0) mg/dL AST (5-37) U/L ALT (0-40) U/L Alkaline Phosphatase (39-117) U/L Total Protein (6.5-8.0) g/dL Albumin (3.5-5.0) g/dL Beta-Hydroxybutyrate (0.02-0.27) mmol/L TSH (0.32-4.0) uIU/mL Free T4 (0.71-1.85) ng/dL Urine Color Urine Appearance Urine pH (5.0-9.0) Ur Specific [place] (1.005-1.025) Urine Protein (Neg-Trace) mg/dL Urine Glucose (UA) (Negative) mg/dL Urine Ketones (Negative) mg/dL Urine Blood (Negative) Urine Nitrite (Negative) Ur Leukocyte Esterase (Negative) Urine RBC (0-2) /HPF Urine WBC (0-5) /HPF Ur Squamous Epith Cells (0-2) /HPF Urine Bacteria (None Seen) Hyaline Casts (0-2) /LPF Urine Opiates Screen (Not Detect) Ur Buprenorphine Scrn (Not Detect) ng/mL Ur Oxycodone Screen (Not Detect) ng/mL Urine Methadone Screen (Not Detect) ng/mL Urine Fentanyl Screen (Not Detect) Ur Barbiturates Screen (Not Detect) Ur Phencyclidine Scrn (Not Detect) Ur Amphetamines Screen (Not Detect) U Benzodiazepines Scrn (Not Detect) Urine Cocaine Screen (Not Detect) U Marijuana (THC) Screen (Not Detect) Ethyl Alcohol mg/dL COVID-19 (YA) Negative (Negative) COVID-19 Clin Com See Note Influenza Type A (PAULINE) Negative (Negative) Influenza Type B (PAULINE) Negative (Negative) Influenza A & B Note See Note Independent Interpretation I performed an independent interpretation of an: EKG Radiology Impression Discussion of test interpretation with radiology: I have reviewed the radiologist's reading. Independent Historian Clinical information obtained from an independent historian. History obtained from or confirmed by: Spouse and EMS External Record Review External record reviewed: Inpatient record Chronic Conditions Patient?s care impacted by: Other (Epilepsy, alcohol use disorder) Social Determinants Patient?s care significantly limited by Social Determinants of Health including: Other Social Determinant of Health Critical Care Time Critical Care Time Critical Care Time: Yes Total Critical Care Time: 40 Attestation: CRITICAL CARE TIME: 40 minutes of critical care time was spent in direct patient care at the bedside or in the immediate area with this patient. Critical care was necessary to treat or prevent imminent or life-threatening deterioration of the following conditions alcohol withdrawal due to severe alcohol use disorder requiring phenobarbital protocol, seizure disorder requiring IV antiepileptics. This patient is high risk for decompensation and/or . This time was spent assessing and managing the patient, interpreting labs and imaging, coordinating care with other medical providers, gathering history from either the patient, their representatives, EMS or chart review, and discussing management with admitting team. Discharge Plan Discharge Clinical Impression: Breakthrough seizure, Alcohol use disorder, Alcohol withdrawal Patient Disposition: Admitted As Inpatient
[2025-09-07] MEDS: PHENobarbitaL sodium 130 MG/ML IM ONCE 350 MG IM (08:13)
--- NOTE | 2025-09-07 09:19 | PM.IMHP ---
History of Present Illness Date of Service: 09/07/25 Chief Complaint: Seizure 60 year old man presenting with breakthrough seizure and alcohol withdrawal. He reported that he takes his seizure medications everyday butthen stated that he may have missed some doses. He drinks a sleeve of vodka a day and is looking for detox. Apparently yesterday morning he fell and EMS was called to help him up. 30 minutes later he had a tonic clonic seizure and EMS was called again. In the ER patient had multiple imaging studies including head and cervical spine CT which were both negative. She will, wrist and elbow x-rays all negative for any acute fracture. He does have a previous humeral hea impaction and has a sling on. Patient has no fever leukocytosis. In the ER, he was started on phenobarbital IV. Given 1 g of IV Keppra, lorazepam, 1 L of IV fluid. He will be admitted for further management and treatment of breakthrough seizure and alcohol intoxication/withdrawal. Review of Systems Review of Systems: Denies any recent fever chills or decrease in appetite respiratory denies any shortness breath or cough cardiovascular denies chest pain gastrointestinal denies any dysphagia abdominal pain nausea vomiting or diarrhea genitourinary denies any dysuria frequency or hematuria musculoskeletal denies any joint pain or swelling neuropsych denies any weakness or seizures all other systems reviewed are negative PMFSH Medical History DVT (deep venous thrombosis) Major depressive disorder Epilepsy Alcohol abuse Social History Household Members: Family Housing: Other Do you presently have visiting nurse or other home services: No Alcohol intake: current Alcohol intake frequency: 3 or more drinks per day Alcohol type: hard liquor Patient Tobacco Use Status: Current everyday Tobacco user Tobacco use type: Cigarette Cigarettes Per Day: 10 Smoked in Last 30 Days: Yes e-Cigarette/Vaping Use: Never Used Second Hand Smoke Exposure: Yes Use of substances other than those prescribed or required for medical reasons: No Advance Directives: Yes Advance Directives on File: Yes Advance Directives Date on File: 12/29/24 Do you have a plan to hurt others: No Plan service: No Meds Allergies Allergy/AdvReac Type Severity Reaction Status Date / Time No Known Allergies Allergy Verified 09/06/25 23:57 Active Medications: Current Medications Acetaminophen (Acetaminophen 325 Mg Tablet) 650 mg PO Q6H PRN PRN Reason: Pain, Mild 1-3,fever,headache Calcium Carbonate (Calcium Carbonate 750 Mg Tab.Chew) 750 mg PO Q4H PRN PRN Reason: Heartburn Magnesium Hydroxide (Milk Of Magnesia 30 Ml Oral.Susp) 30 ml PO DAILY PRN PRN Reason: Constipation Melatonin (Melatonin 3 Mg Tablet) 6 mg PO BEDTIME PRN PRN Reason: Insomnia Ondansetron HCl (Ondansetron Hcl 4 Mg/2 Ml Vial) 4 mg IVPUSH Q8H PRN PRN Reason: Nausea and Vomiting Pharmacy Consult (Consult Rx Etoh Phenob Im/Po) 1 each MISCELLANE ONCE PRN; Protocol PRN Reason: Consult order Phenobarbital (Phenobarbital 15 Mg Tablet) 45 mg PO BID OTONIEL; Protocol Stop: 09/09/25 09:01 Phenobarbital (Phenobarbital 15 Mg Tablet) 15 mg PO BID OTONIEL; Protocol Stop: 09/12/25 09:01 Phenobarbital (Phenobarbital 15 Mg Tablet) 15 mg PO DAILY OTONIEL; Protocol Stop: 09/13/25 09:01 Phenobarbital Sodium (Phenobarbital Sodium 130 Mg/Ml Vial Im Q3hx2) 263 mg IM Q3H OTONIEL; Protocol Stop: 09/07/25 14:01 Sodium Chloride (0.9 % Sodium Chloride Flush 3 Ml Syringe) 3 ml IVFLUSH QSHIFT [facility] Home Medications ?Medication ?Instructions ?Recorded ?Confirmed ?Last Taken ?Type trazodone 50 mg tablet 25 mg PO BEDTIME 12/26/24 09/07/25 09/06/25 History primidone 50 mg tablet 50 mg PO DAILY 07/29/25 09/07/25 09/06/25 History Physical Exam Vital Signs and Narrative: Vital Signs: Last Vital Signs Temp 97.5 F 09/07/25 08:14 Pulse 106 H 09/07/25 08:14 Resp 16 09/07/25 08:14 BP 137/80 09/07/25 08:14 Pulse Ox 95 09/07/25 08:14 O2 Del Method Room Air 09/07/25 08:14 BMI result Body Mass Index 39.8 Appearing in no acute distress head is normocephalic atraumatic eyes pupils are PERRLA sclera is anicteric mouth throat mucous membranes are intact and moist neck is supple no lymphadenopathy, no JVD noted lung sounds are clear to auscultation heart regular rate rhythm, clear S1, S2 positive bowel sounds, abdomen is soft, nontender neuro patient is alert x3, no focal deficits Results Labs 09/07/25 00:01 09/07/25 00:01 Labs: Laboratory Results - last 24 hr 09/06/25 09/07/25 09/07/25 23:43 00:01 00:03 MCV 94.3 MCH 31.9 MCHC 33.8 RDW 13.6 Plt Count 258 D MPV 10.3 Immature Gran % (Auto) 0.8 H Neut % (Auto) 70.8 Lymph % (Auto) 21.0 [place] % (Auto) 6.1 Eos % (Auto) 0.6 Baso % (Auto) 0.7 Lymph # (Auto) 1.5 [place] # (Auto) 0.4 Eos # (Auto) 0.0 Baso # (Auto) 0.1 Abs Immat Gran (auto) 0.06 H Absolute Neuts (auto) 5.0 Absolute Nucleated RBC 0.000 Nucleated RBC % (auto) 0.0 VBG pH VBG pCO2 VBG pO2 VBG HCO3 VBG O2 Saturation VBG Base Excess Anion Gap 19 Estim Creat Clear Calc 162.9 Estimated GFR > 60 POC Glucose 261 H Random Glucose 258 H Calcium 8.7 D Magnesium 2.0 Total Bilirubin 0.2 AST 43 H ALT 69 H Alkaline Phosphatase 128 H Total Protein 7.4 Albumin 4.5 Beta-Hydroxybutyrate 0.29 H TSH 0.31 L Free T4 0.99 Urine Color Yellow Urine Appearance Clear Urine pH 5.5 Ur Specific [place] 1.015 Urine Protein Negative Urine Glucose (UA) >=1000 H Urine Ketones Negative Urine Blood Negative Urine Nitrite Negative Ur Leukocyte Esterase Negative Urine RBC 0-2 Urine WBC 0-5 Ur Squamous Epith Cells 0-2 Urine Bacteria None Seen Hyaline Casts 0-2 Urine Opiates Screen Not Detected Ur Buprenorphine Scrn Not Detected Ur Oxycodone Screen Not Detected Urine Methadone Screen Not Detected Urine Fentanyl Screen Not Detected Ur Barbiturates Screen Not Detected Ur Phencyclidine Scrn Not Detected Ur Amphetamines Screen Not Detected U Benzodiazepines Scrn Not Detected Urine Cocaine Screen Not Detected U Marijuana (THC) Screen Not Detected Ethyl Alcohol 168 COVID-19 (YA) COVID-19 Clin Com Influenza Type A (PAULINE) Influenza Type B (PAULINE) Influenza A & B Note 09/07/25 09/07/25 00:07 00:13 MCV MCH MCHC RDW Plt Count MPV Immature Gran % (Auto) Neut % (Auto) Lymph % (Auto) [place] % (Auto) Eos % (Auto) Baso % (Auto) Lymph # (Auto) [place] # (Auto) Eos # (Auto) Baso # (Auto) Abs Immat Gran (auto) Absolute Neuts (auto) Absolute Nucleated RBC Nucleated RBC % (auto) VBG pH 7.32 VBG pCO2 48 VBG pO2 51 VBG HCO3 25 VBG O2 Saturation 75.0 VBG Base Excess -1.2 Anion Gap Estim Creat Clear Calc Estimated GFR POC Glucose Random Glucose Calcium Magnesium Total Bilirubin AST ALT Alkaline Phosphatase Total Protein Albumin Beta-Hydroxybutyrate TSH Free T4 Urine Color Urine Appearance Urine pH Ur Specific [place] Urine Protein Urine Glucose (UA) Urine Ketones Urine Blood Urine Nitrite Ur Leukocyte Esterase Urine RBC Urine WBC Ur Squamous Epith Cells Urine Bacteria Hyaline Casts Urine Opiates Screen Ur Buprenorphine Scrn Ur Oxycodone Screen Urine Methadone Screen Urine Fentanyl Screen Ur Barbiturates Screen Ur Phencyclidine Scrn Ur Amphetamines Screen U Benzodiazepines Scrn Urine Cocaine Screen U Marijuana (THC) Screen Ethyl Alcohol COVID-19 (YA) Negative COVID-19 Clin Com See Note Influenza Type A (PAULINE) Negative Influenza Type B (PAULINE) Negative Influenza A & B Note See Note Assessment and Plan (1) Alcohol dependence: Qualifiers: Complication of substance-induced condition: uncomplicated Substance use status: with intoxication Qualified Code(s): F10.220 - Alcohol dependence with intoxication, uncomplicated Status: Acute (2) Epilepsy: Status: Acute Plan 60-year-old man with a history of alcohol abuse and epilepsy presenting after breakthrough seizure and alcohol withdrawal Breakthrough seizure Unknown if patient is taking his seizure medication as prescribed Patient received 1 g of IV Keppra in the ER and 1 dose of lorazepam Continue home Keppra, Dilantin, Tegretol Seizure precautions Alcohol withdrawal and abuse Started on phenobarbital protocol Addiction consultation Monitor closely for worsening signs of withdrawal IV thiamine, oral multivitamin and folic acid Transaminitis Likely secondary to alcohol abuse COPD No acute exacerbation Albuterol as needed DVT prophylaxis with heparin Full code Patient will likely need at least 2 days of admission for breakthrough seizures requiring close maintenance of medications and treatment for alcohol withdrawal to avoid withdrawal symptoms. He will also need consultation from addiction Medicine for options for detox/outpatient treatment Quality Stroke Does the patient have a stroke diagnosis?: No VTE Prior VTE?: No VTE Risk Level:: Medical - moderate - high VTE Device Contraindication: Treatment Not Indicated VTE Drug Contraindication: N/A - Med Ordered
--- NOTE | 2025-09-07 09:44 | PHA.MEDREC ---
Pharmacy Consult ? Medication Reconciliation Pharmacy has completed the medication reconciliation. Had no claims for pt since April 2025. Spoke with pt and he confirmed his medications (Albuterol, Carbamazepine, Breo Ellipta, Gabapentin, Levetiracetam, Phenytoin Sodium, Primidone, Vitamin B-1 and Trazodone); Spoke with pt pharmacy and they confirmed they filled some meds recently (in last 2-3 months) they were able to read and confirm with me; Albuterol, Carbamazepine 200mg, Breo Ellipta, Ipratropium, Levetiracetam 750mg, Naltrexone, Phenytoin Sodium and Prednisone were all last filled in the last 1-2 months for at least 90 days. Duloxetine, Folic Acid, Gabapenitn, Primidone and Trazodone have not been filled since April 2025 for 30 days.
[2025-09-07] MEDS: Thiamine HCL 100 MG in 0.9 % Sodium Chloride 100 ML 202 MG IV (10:21)
[2025-09-07] MEDS: PHENobarbitaL sodium 130 MG/ML VIAL IM Q3Hx2 263 MG IM ×2 (11:14→15:18)
[2025-09-07] MEDS: Lactated Ringers 1,000 ML 100 ML IVCONT ×2 (11:15→22:07)
--- NOTE | 2025-09-07 11:28 | PC.NURSE ---
RN to RN report received via phone from Britany Velasquez RN. Moved from ED 12 to Overflow 4. Visitor at bedside. Care ongoing by this RN.
--- NOTE | 2025-09-07 11:55 | PC.NURSE ---
Spoke with Reyes Marquez (pharmacist) regarding patient's Breo Ellipta 50/, asked to inquire with patient/family to bring the medication to [facility], non-formulary. Patient stated I ran out of that script at home, so I don't have it . Visitor at bedside made same statement. Pharmacist aware of this.
--- NOTE | 2025-09-07 13:24 | HO.ADDICT_ITS ---
History of Present Illness Date of Service: 09/07/2025 Chief Complaint: breakthrough seizure Reason for Consult: AUD and acute withdrawal Sources of Information: patient interviewed and chart reviewed Additional Sources of Information: GF HPI Narrative: Patient is a 60 year old male with AUD, epilepsy, and COPD. Presented to [facility] following witnessed seizure at home, also requesting assistance with alcohol use and withdrawal management. Per GF, patient may not have been consistent with seizure medications. Chart review shows patient was recently admitted to [facility] (07/2025) -seen by ACS at that time and Naltrexone rx sent to pharmacy per patient request. Patient seen in overflow room 4. He is sleeping comfortably when t/w arrives, GF at bedside. She reports he started drinking shortly after getting home from last admission. Drinking btwn 10-20 nips of vodka daily. She feels his intake has increased due to pain--unclear what type of pain she is referring to She states that when she went to worm picker Naltrexone, she was told his insurance did not cover that medication. Patient woke during discussion and reported that he was feeling better, except for have pain in his shoulder and feeling uncomfortable with the sling x-ray showing impaction fracture VS WNL when seen by t/w. Mild tremor noted. Denies nausea, vomiting Labs reviewed Medical Evaluation Reviewed: Yes Review of Systems Constitutional: Reports as per HPI Diagnostics Vital Signs (24Hr): Vital Signs - 24 hr 09/06/25 23:40 09/07/25 00:48 09/07/25 00:48 Temperature 98.3 F Pulse Rate 106 H 99 Pulse Rate [Monitor] 99 Respiratory Rate 20 18 Blood Pressure 143/87 H 129/75 Pulse Oximetry 95 97 Oxygen Delivery Method Room Air Room Air 09/07/25 03:13 09/07/25 06:01 09/07/25 08:14 Temperature 98.2 F 97.8 F 97.5 F Pulse Rate 104 H 104 H 106 H Pulse Rate [Monitor] Respiratory Rate 21 H 20 16 Blood Pressure 128/75 136/77 137/80 Pulse Oximetry 96 96 95 Oxygen Delivery Method Room Air Room Air Room Air 09/07/25 11:59 Temperature 97.9 F Pulse Rate 99 Pulse Rate [Monitor] Respiratory Rate 16 Blood Pressure 133/73 Pulse Oximetry 95 Oxygen Delivery Method Room Air BMI result Body Mass Index 39.8 Labs 09/07/25 00:01 09/07/25 00:01 Labs: Laboratory Results - last 48 hr 09/06/25 09/07/25 09/07/25 23:43 00:01 00:03 WBC 7.1 RBC 5.05 Hgb 16.1 Hct 47.6 MCV 94.3 MCH 31.9 MCHC 33.8 RDW 13.6 Plt Count 258 D MPV 10.3 Immature Gran % (Auto) 0.8 H Neut % (Auto) 70.8 Lymph % (Auto) 21.0 [place] % (Auto) 6.1 Eos % (Auto) 0.6 Baso % (Auto) 0.7 Lymph # (Auto) 1.5 [place] # (Auto) 0.4 Eos # (Auto) 0.0 Baso # (Auto) 0.1 Abs Immat Gran (auto) 0.06 H Absolute Neuts (auto) 5.0 Absolute Nucleated RBC 0.000 Nucleated RBC % (auto) 0.0 VBG pH VBG pCO2 VBG pO2 VBG HCO3 VBG O2 Saturation VBG Base Excess Sodium 140 Potassium 4.1 Chloride 105 Carbon Dioxide 20 L Anion Gap 19 BUN 6 L Creatinine 0.65 Estim Creat Clear Calc 162.9 Estimated GFR > 60 POC Glucose 261 H Random Glucose 258 H Calcium 8.7 D Magnesium 2.0 Total Bilirubin 0.2 AST 43 H ALT 69 H Alkaline Phosphatase 128 H Total Protein 7.4 Albumin 4.5 Beta-Hydroxybutyrate 0.29 H TSH 0.31 L Free T4 0.99 Urine Color Yellow Urine Appearance Clear Urine pH 5.5 Ur Specific [place] 1.015 Urine Protein Negative Urine Glucose (UA) >=1000 H Urine Ketones Negative Urine Blood Negative Urine Nitrite Negative Ur Leukocyte Esterase Negative Urine RBC 0-2 Urine WBC 0-5 Ur Squamous Epith Cells 0-2 Urine Bacteria None Seen Hyaline Casts 0-2 Urine Opiates Screen Not Detected Ur Buprenorphine Scrn Not Detected Ur Oxycodone Screen Not Detected Urine Methadone Screen Not Detected Urine Fentanyl Screen Not Detected Ur Barbiturates Screen Not Detected Ur Phencyclidine Scrn Not Detected Ur Amphetamines Screen Not Detected U Benzodiazepines Scrn Not Detected Urine Cocaine Screen Not Detected U Marijuana (THC) Screen Not Detected Ethyl Alcohol 168 COVID-19 (YA) COVID-19 Clin Com Influenza Type A (PAULINE) Influenza Type B (PAULINE) Influenza A & B Note 09/07/25 09/07/25 00:07 00:13 WBC RBC Hgb Hct MCV MCH MCHC RDW Plt Count MPV Immature Gran % (Auto) Neut % (Auto) Lymph % (Auto) [place] % (Auto) Eos % (Auto) Baso % (Auto) Lymph # (Auto) [place] # (Auto) Eos # (Auto) Baso # (Auto) Abs Immat Gran (auto) Absolute Neuts (auto) Absolute Nucleated RBC Nucleated RBC % (auto) VBG pH 7.32 VBG pCO2 48 VBG pO2 51 VBG HCO3 25 VBG O2 Saturation 75.0 VBG Base Excess -1.2 Sodium Potassium Chloride Carbon Dioxide Anion Gap BUN Creatinine Estim Creat Clear Calc Estimated GFR POC Glucose Random Glucose Calcium Magnesium Total Bilirubin AST ALT Alkaline Phosphatase Total Protein Albumin Beta-Hydroxybutyrate TSH Free T4 Urine Color Urine Appearance Urine pH Ur Specific [place] Urine Protein Urine Glucose (UA) Urine Ketones Urine Blood Urine Nitrite Ur Leukocyte Esterase Urine RBC Urine WBC Ur Squamous Epith Cells Urine Bacteria Hyaline Casts Urine Opiates Screen Ur Buprenorphine Scrn Ur Oxycodone Screen Urine Methadone Screen Urine Fentanyl Screen Ur Barbiturates Screen Ur Phencyclidine Scrn Ur Amphetamines Screen U Benzodiazepines Scrn Urine Cocaine Screen U Marijuana (THC) Screen Ethyl Alcohol COVID-19 (YA) Negative COVID-19 Clin Com See Note Influenza Type A (PAULINE) Negative Influenza Type B (PAULINE) Negative Influenza A & B Note See Note Mental Status Exam Mental Status Exam Level of Consciousness: Appropriate Patient Behavior: Appropriate Affect Description: Calm Speech Pattern: Clear Thought Process: Intact Thought Content: positive for Intact and positive for [place] Judgement: Fair Medications Medications Current Medications Acetaminophen (Acetaminophen 325 Mg Tablet) 650 mg PO Q6H PRN PRN Reason: Pain, Mild 1-3,fever,headache Albuterol Sulfate (Albuterol Sulfate 90 Mcg 8 Gm Inhaler) 1 puff INHALE Q6H PRN PRN Reason: shortness of breath or wheezing Albuterol/Ipratropium (Albuterol/Iprat 2.5/0.5mg 3 Ml Ampul.Neb) 3 ml INHALE Q8H PRN PRN Reason: sob/nguyen Calcium Carbonate (Calcium Carbonate 750 Mg Tab.Chew) 750 mg PO Q4H PRN PRN Reason: Heartburn Carbamazepine (Carbamazepine 200 Mg Tablet) 600 mg PO BID [facility] Folic Acid (Folic Acid 1 Mg Tablet) 1 mg PO DAILY [facility] Last Admin: 09/07/25 10:21 Dose: 1 mg Gabapentin (Gabapentin 100 Mg Capsule) 100 mg PO TID [facility] Thiamine HCl 100 mg/ Sodium (Chloride) 101 mls @ 202 mls/hr IV DAILY [facility] Last Infusion: 09/07/25 11:14 Dose: Infused Lactated Ringer's (Lr) 1,000 mls @ 100 mls/hr IVCONT .Q10H [facility] Last Admin: 09/07/25 11:15 Dose: 100 mls/hr Levetiracetam (Levetiracetam 500 Mg Tablet) 1,500 mg PO BID [facility] Magnesium Hydroxide (Milk Of Magnesia 30 Ml Oral.Susp) 30 ml PO DAILY PRN PRN Reason: Constipation Melatonin (Melatonin 3 Mg Tablet) 6 mg PO BEDTIME PRN PRN Reason: Insomnia Morphine Sulfate (Morphine Sulfate 4 Mg/Ml Cartridge) 2 mg IVPUSH Q4H PRN; Protocol PRN Reason: Pain, Severe (Pain Scale 7-10) Last Admin: 09/07/25 10:29 Dose: 2 mg Multivitamins/Vitamin C (Multivitamin Tablet) 1 tab PO DAILY [facility] Last Admin: 09/07/25 10:21 Dose: 1 tab Non-Formulary Medication (Fluticasone Furoate-Vilanterol [Breo Ellipta]) 1 inhalation INHALE DAILY [facility] Ondansetron HCl (Ondansetron Hcl 4 Mg/2 Ml Vial) 4 mg IVPUSH Q8H PRN PRN Reason: Nausea and Vomiting Oxycodone HCl (Oxycodone Hcl Immed Release 5 Mg Tablet) 5 mg PO Q4H PRN PRN Reason: Pain, Moderate(Pain Scale 4-6) Pharmacy Consult (Consult Rx Etoh Phenob Im/Po) 1 each MISCELLANE ONCE PRN; Protocol PRN Reason: Consult order Phenobarbital (Phenobarbital 15 Mg Tablet) 45 mg PO BID [facility]; Protocol Stop: 09/09/25 09:01 Phenobarbital (Phenobarbital 15 Mg Tablet) 15 mg PO BID [facility]; Protocol Stop: 09/12/25 09:01 Phenobarbital (Phenobarbital 15 Mg Tablet) 15 mg PO DAILY [facility]; Protocol Stop: 09/13/25 09:01 Phenobarbital Sodium (Phenobarbital Sodium 130 Mg/Ml Vial Im Q3hx2) 263 mg IM Q3H [facility]; Protocol Stop: 09/07/25 14:01 Last Admin: 09/07/25 11:14 Dose: 263 mg Phenytoin Sodium (Phenytoin Sodium Extended 100 Mg Capsule) 400 mg PO BID [facility] Primidone (Primidone 50 Mg Tablet) 50 mg PO DAILY [facility] Sodium Chloride (0.9 % Sodium Chloride Flush 3 Ml Syringe) 3 ml IVFLUSH QSHIFT [facility] Trazodone HCl (Trazodone Hcl 25 Mg Halftab) 25 mg PO BEDTIME [facility] Allergies Allergies Allergy/AdvReac Type Severity Reaction Status Date / Time No Known Allergies Allergy Verified 09/06/25 23:57 Assessment & Plan Assessment & Plan (1) Alcohol withdrawal: Status: Acute Code(s): F10.939 - Alcohol use, unspecified with withdrawal, unspecified Assessment and Plan: * phenobarbital protocol in place, given history of alcohol withdrawal and underlying seizure disorder * IV thiamine * reinsurance claim analyst to follow up in AM regarding ongoing etoh use, and plan for addressing at home * provided support to GF at bedside who was tearful and concerned about patient Total time managing care of this patient today ___30_ minutes. PMFSH Past Medical History Medical History DVT (deep venous thrombosis) Major depressive disorder Epilepsy Alcohol abuse Social History Social History Household Members: Family Housing: Other Do you presently have visiting nurse or other home services: No Alcohol intake: current Alcohol intake frequency: 3 or more drinks per day Alcohol type: hard liquor Patient Tobacco Use Status: Current everyday Tobacco user Tobacco use type: Cigarette Cigarettes Per Day: 10 e-Cigarette/Vaping Use: Never Used Second Hand Smoke Exposure: Yes Advance Directives Date on File: 12/29/24 service: No
--- NOTE | 2025-09-07 13:28 | MHC.CM.PN ---
PT LIVES WITH GIRLFRIEND HAS OWN RIDE HOME LIELY TO BE SEEN BY ADDICTION MEDICINE DC PLAN HOME
--- NOTE | 2025-09-07 14:51 | PM.CNOR ---
History of Present Illness HPI Consult date: 09/07/25 Chief complaint: breakthrough seizure Narrative: 60-year-old male with a history of seizure disorder on Keppra and Dilantin, alcohol use disorder drinks about one sleeve of nips per day presenting after a seizure that occurred at home. It was an unwitnessed fall with an unknown downtime. There was loss of consciousness according to his who then witnessed him having a tonic-clonic seizure. Reportedly lasted 10-15 minutes. Patient reports he has taken his antiepileptics today including Keppra and Dilantin. Drinks every day about 10-20 nips of vodka. He does not take blood thinners. Denies illicit substance use. Denies stimulant use. Admits that he has been having frequent falls lately. States that he feels unsteady on his feet. xrays in the ED significant for right greater tuberosity fx . placed in a sling and ortho was consulted for recommendations. Review of Systems Review of Systems: Yes all other systems are reviewed and are negative PMFSH Past Medical History Medical History DVT (deep venous thrombosis) Major depressive disorder Epilepsy Alcohol abuse Social History Social History Household Members: Family Housing: Other Do you presently have visiting nurse or other home services: No Alcohol intake: current Alcohol intake frequency: 3 or more drinks per day Alcohol type: hard liquor Patient Tobacco Use Status: Current everyday Tobacco user Tobacco use type: Cigarette Cigarettes Per Day: 10 Smoked in Last 30 Days: Yes e-Cigarette/Vaping Use: Never Used Second Hand Smoke Exposure: Yes Use of substances other than those prescribed or required for medical reasons: No Advance Directives: Yes Advance Directives on File: Yes Advance Directives Date on File: 12/29/24 Do you have a plan to hurt others: No Plan service: No Meds Allergies Allergy/AdvReac Type Severity Reaction Status Date / Time No Known Allergies Allergy Verified 09/06/25 23:57 Active Medications: Current Medications Acetaminophen (Acetaminophen 325 Mg Tablet) 650 mg PO Q6H PRN PRN Reason: Pain, Mild 1-3,fever,headache Albuterol Sulfate (Albuterol Sulfate 90 Mcg 8 Gm Inhaler) 1 puff INHALE Q6H PRN PRN Reason: shortness of breath or wheezing Albuterol/Ipratropium (Albuterol/Iprat 2.5/0.5mg 3 Ml Ampul.Neb) 3 ml INHALE Q8H PRN PRN Reason: sob/nguyen Calcium Carbonate (Calcium Carbonate 750 Mg Tab.Chew) 750 mg PO Q4H PRN PRN Reason: Heartburn Carbamazepine (Carbamazepine 200 Mg Tablet) 600 mg PO BID [facility] Folic Acid (Folic Acid 1 Mg Tablet) 1 mg PO DAILY [facility] Last Admin: 09/07/25 10:21 Dose: 1 mg Gabapentin (Gabapentin 100 Mg Capsule) 100 mg PO TID [facility] Thiamine HCl 100 mg/ Sodium (Chloride) 101 mls @ 202 mls/hr IV DAILY [facility] Last Infusion: 09/07/25 11:14 Dose: Infused Lactated Ringer's (Lr) 1,000 mls @ 100 mls/hr IVCONT .Q10H [facility] Last Admin: 09/07/25 11:15 Dose: 100 mls/hr Levetiracetam (Levetiracetam 500 Mg Tablet) 1,500 mg PO BID [facility] Magnesium Hydroxide (Milk Of Magnesia 30 Ml Oral.Susp) 30 ml PO DAILY PRN PRN Reason: Constipation Melatonin (Melatonin 3 Mg Tablet) 6 mg PO BEDTIME PRN PRN Reason: Insomnia Morphine Sulfate (Morphine Sulfate 4 Mg/Ml Cartridge) 2 mg IVPUSH Q4H PRN; Protocol PRN Reason: Pain, Severe (Pain Scale 7-10) Last Admin: 09/07/25 10:29 Dose: 2 mg Multivitamins/Vitamin C (Multivitamin Tablet) 1 tab PO DAILY [facility] Last Admin: 09/07/25 10:21 Dose: 1 tab Nicotine (Nicotine 21 Mg Patch.Td24) mg TRANSDERMA DAILY [facility] Non-Formulary Medication (Fluticasone Furoate-Vilanterol [Breo Ellipta]) 1 inhalation INHALE DAILY [facility] Non-Formulary Medication (Duloxetine) 20 mg PO BID [facility] Ondansetron HCl (Ondansetron Hcl 4 Mg/2 Ml Vial) 4 mg IVPUSH Q8H PRN PRN Reason: Nausea and Vomiting Oxycodone HCl (Oxycodone Hcl Immed Release 5 Mg Tablet) 5 mg PO Q4H PRN PRN Reason: Pain, Moderate(Pain Scale 4-6) Pharmacy Consult (Consult Rx Etoh Phenob Im/Po) 1 each MISCELLANE ONCE PRN; Protocol PRN Reason: Consult order Phenobarbital (Phenobarbital 15 Mg Tablet) 45 mg PO BID [facility]; Protocol Stop: 09/09/25 09:01 Phenobarbital (Phenobarbital 15 Mg Tablet) 15 mg PO BID [facility]; Protocol Stop: 09/12/25 09:01 Phenobarbital (Phenobarbital 15 Mg Tablet) 15 mg PO DAILY [facility]; Protocol Stop: 09/13/25 09:01 Phenytoin Sodium (Phenytoin Sodium Extended 100 Mg Capsule) 400 mg PO BID [facility] Primidone (Primidone 50 Mg Tablet) 50 mg PO DAILY [facility] Sodium Chloride (0.9 % Sodium Chloride Flush 3 Ml Syringe) 3 ml IVFLUSH QSHIFT [facility] Trazodone HCl (Trazodone Hcl 25 Mg Halftab) 25 mg PO BEDTIME [facility] Home Medications ?Medication ?Instructions ?Recorded ?Confirmed ?Last Taken ?Type trazodone 50 mg tablet 25 mg PO BEDTIME 12/26/24 09/07/25 09/06/25 History primidone 50 mg tablet 50 mg PO DAILY 07/29/25 09/07/25 09/06/25 History duloxetine 20 mg capsule,delayed 20 mg PO BID 09/07/25 09/07/25 Unknown History release sprinkle folic acid 1 mg tablet 1 mg PO DAILY 09/07/25 09/07/25 Unknown History nicotine 21 mg/24 hr daily 1 patch transdermal DAILY 09/07/25 09/07/25 Unknown History transdermal patch Physical Exam Vital Signs: Vital Signs: Last Vital Signs Temp 97.9 F 09/07/25 11:59 Pulse 99 09/07/25 11:59 Resp 16 09/07/25 11:59 BP 133/73 09/07/25 11:59 Pulse Ox 95 09/07/25 11:59 O2 Del Method Room Air 09/07/25 11:59 BMI result Body Mass Index 39.8 Const: General: cooperative, healthy appearing, comfortable and no acute distress Extrem: Other: Right arm sling intact. No significant tenderness over the proximal humerus NVI Results Labs 09/07/25 00:01 09/07/25 00:01 Labs: Abnormal lab results 09/06/25 09/07/25 09/07/25 Range/Units 23:43 00:01 00:03 Immature Gran % (Auto) 0.8 H (0.0-0.4) % Abs Immat Gran (auto) 0.06 H (0.00-0.03) X10*3/uL Carbon Dioxide 20 L (22-29) mmol/L BUN 6 L (9-16) mg/dL POC Glucose 261 H (60-115) mg/dL Random Glucose 258 H (60-115) mg/dL AST 43 H (5-37) U/L ALT 69 H (0-40) U/L Alkaline Phosphatase 128 H (39-117) U/L Beta-Hydroxybutyrate 0.29 H (0.02-0.27) mmol/L TSH 0.31 L (0.32-4.0) uIU/mL Urine Glucose (UA) >=1000 H (Negative) mg/dL H & H 09/07/25 Range/Units 00:01 Hgb 16.1 (14.0-18.0) g/dl Hct 47.6 (42.0-52.0) % All other labs normal. Assessment and Plan (1) Fracture of greater tuberosity of right humerus: Status: Acute Plan Sling for comfort- ok to perform pendulums, elbow and wrist rom, beth scap stabilization -no lifting arm away from body in ER or above shoulder height. -no lifting more than 2lbs with left arm Follow up outpatient ortho in 4-6 weeks Procedures Date of Service Date of Service: 09/07/25
--- NOTE | 2025-09-07 15:01 | PM.NEUROCN ---
History of Present Illness Data of Consult Service Date: 09/07/25 Primary Care Provider: None Physician HPI Reason for consult: Seizure and alcohol withdrawal This is a 60 year old man with a breakthrough seizure and alcohol withdrawal. He was discharged from [facility] with a similar presentation on 07/30/2025. He reported that he takes his seizure medications everyday but missed a few doses. He drinks about 20 vodka a day and now says that he wants to go into detox and he has made up his mind. Apparently, yesterday morning he fell and EMS was called to help him up. 30 minutes later he had a tonic clonic seizure and EMS was called again. He fell against a car and broke his right humerus. In the ER patient had multiple imaging studies including head and cervical spine CT which were both negative. He has a previous humeral fracture with impaction and has a sling on. Patient has no fever leukocytosis. In the ER, he was started on phenobarbital IV. Given 1 g of IV Keppra, lorazepam, 1 L of IV fluid. He will be admitted for further management and treatment of breakthrough seizure and alcohol intoxication/withdrawal. [facility] Past Medical History Medical History DVT (deep venous thrombosis) Major depressive disorder Epilepsy Alcohol abuse Social History Social History Household Members: Family Housing: Other Do you presently have visiting nurse or other home services: No Alcohol intake: current Alcohol intake frequency: 3 or more drinks per day Alcohol type: hard liquor Patient Tobacco Use Status: Current everyday Tobacco user Tobacco use type: Cigarette Cigarettes Per Day: 10 Smoked in Last 30 Days: Yes e-Cigarette/Vaping Use: Never Used Second Hand Smoke Exposure: Yes Use of substances other than those prescribed or required for medical reasons: No Advance Directives: Yes Advance Directives on File: Yes Advance Directives Date on File: 12/29/24 Do you have a plan to hurt others: No Plan service: No Meds Allergies Allergy/AdvReac Type Severity Reaction Status Date / Time No Known Allergies Allergy Verified 09/06/25 23:57 Active Medications: Current Medications Acetaminophen (Acetaminophen 325 Mg Tablet) 650 mg PO Q6H PRN PRN Reason: Pain, Mild 1-3,fever,headache Albuterol Sulfate (Albuterol Sulfate 90 Mcg 8 Gm Inhaler) 1 puff INHALE Q6H PRN PRN Reason: shortness of breath or wheezing Albuterol/Ipratropium (Albuterol/Iprat 2.5/0.5mg 3 Ml Ampul.Neb) 3 ml INHALE Q8H PRN PRN Reason: sob/nguyen Calcium Carbonate (Calcium Carbonate 750 Mg Tab.Chew) 750 mg PO Q4H PRN PRN Reason: Heartburn Carbamazepine (Carbamazepine 200 Mg Tablet) 600 mg PO BID [facility] Folic Acid (Folic Acid 1 Mg Tablet) 1 mg PO DAILY [facility] Last Admin: 09/07/25 10:21 Dose: 1 mg Gabapentin (Gabapentin 100 Mg Capsule) 100 mg PO TID [facility] Last Admin: 09/07/25 14:53 Dose: 100 mg Thiamine HCl 100 mg/ Sodium (Chloride) 101 mls @ 202 mls/hr IV DAILY [facility] Last Infusion: 09/07/25 11:14 Dose: Infused Lactated Ringer's (Lr) 1,000 mls @ 100 mls/hr IVCONT .Q10H [facility] Last Admin: 09/07/25 11:15 Dose: 100 mls/hr Levetiracetam (Levetiracetam 500 Mg Tablet) 1,500 mg PO BID [facility] Magnesium Hydroxide (Milk Of Magnesia 30 Ml Oral.Susp) 30 ml PO DAILY PRN PRN Reason: Constipation Melatonin (Melatonin 3 Mg Tablet) 6 mg PO BEDTIME PRN PRN Reason: Insomnia Morphine Sulfate (Morphine Sulfate 4 Mg/Ml Cartridge) 2 mg IVPUSH Q4H PRN; Protocol PRN Reason: Pain, Severe (Pain Scale 7-10) Last Admin: 09/07/25 14:53 Dose: 2 mg Multivitamins/Vitamin C (Multivitamin Tablet) 1 tab PO DAILY [facility] Last Admin: 09/07/25 10:21 Dose: 1 tab Nicotine (Nicotine 21 Mg Patch.Td24) mg TRANSDERMA DAILY [facility] Non-Formulary Medication (Fluticasone Furoate-Vilanterol [Breo Ellipta]) 1 inhalation INHALE DAILY [facility] Non-Formulary Medication (Duloxetine) 20 mg PO BID [facility] Ondansetron HCl (Ondansetron Hcl 4 Mg/2 Ml Vial) 4 mg IVPUSH Q8H PRN PRN Reason: Nausea and Vomiting Last Admin: 09/07/25 14:54 Dose: 4 mg Oxycodone HCl (Oxycodone Hcl Immed Release 5 Mg Tablet) 5 mg PO Q4H PRN PRN Reason: Pain, Moderate(Pain Scale 4-6) Pharmacy Consult (Consult Rx Etoh Phenob Im/Po) 1 each MISCELLANE ONCE PRN; Protocol PRN Reason: Consult order Phenobarbital (Phenobarbital 15 Mg Tablet) 45 mg PO BID [facility]; Protocol Stop: 09/09/25 09:01 Phenobarbital (Phenobarbital 15 Mg Tablet) 15 mg PO BID [facility]; Protocol Stop: 09/12/25 09:01 Phenobarbital (Phenobarbital 15 Mg Tablet) 15 mg PO DAILY [facility]; Protocol Stop: 09/13/25 09:01 Phenytoin Sodium (Phenytoin Sodium Extended 100 Mg Capsule) 400 mg PO BID [facility] Primidone (Primidone 50 Mg Tablet) 50 mg PO DAILY [facility] Sodium Chloride (0.9 % Sodium Chloride Flush 3 Ml Syringe) 3 ml IVFLUSH QSHIFT [facility] Trazodone HCl (Trazodone Hcl 25 Mg Halftab) 25 mg PO BEDTIME [facility] Home Medications ?Medication ?Instructions ?Recorded ?Confirmed ?Last Taken ?Type trazodone 50 mg tablet 25 mg PO BEDTIME 12/26/24 09/07/25 09/06/25 History primidone 50 mg tablet 50 mg PO DAILY 07/29/25 09/07/25 09/06/25 History duloxetine 20 mg capsule,delayed 20 mg PO BID 09/07/25 09/07/25 Unknown History release sprinkle folic acid 1 mg tablet 1 mg PO DAILY 09/07/25 09/07/25 Unknown History nicotine 21 mg/24 hr daily 1 patch transdermal DAILY 09/07/25 09/07/25 Unknown History transdermal patch Physical Exam Vital Signs: Vital Signs: Last Vital Signs Temp 97.9 F 09/07/25 11:59 Pulse 99 09/07/25 11:59 Resp 20 09/07/25 14:53 BP 133/73 09/07/25 11:59 Pulse Ox 95 09/07/25 11:59 O2 Del Method Room Air 09/07/25 11:59 BMI result Body Mass Index 39.8 Neuro: Other: He is alert and oriented x3. His exam is nonfocal. Right upper extremity could not be adequately tested because of the fracture. His neck is supple. He is not currently tremulous or hallucinating. Results Labs 09/07/25 00:01 09/07/25 00:01 Labs: Short CBC 09/07/25 Range/Units 00:01 WBC 7.1 (4.8-10.8) X10*3/uL Hgb 16.1 (14.0-18.0) g/dl Hct 47.6 (42.0-52.0) % Plt Count 258 D (160-400) X10*3/uL BMP 09/07/25 00:01 Sodium 140 Potassium 4.1 Chloride 105 Carbon Dioxide 20 L BUN 6 L Creatinine 0.65 Calcium 8.7 D Liver Function 09/07/25 Range/Units 00:01 Total Bilirubin 0.2 (0.0-1.0) mg/dL AST 43 H (5-37) U/L ALT 69 H (0-40) U/L Alkaline Phosphatase 128 H (39-117) U/L Albumin 4.5 (3.5-5.0) g/dL Urine 09/07/25 Range/Units 00:03 Urine Color Yellow Urine Appearance Clear Urine pH 5.5 (5.0-9.0) Ur Specific [place] 1.015 (1.005-1.025) Urine Protein Negative (Neg-Trace) mg/dL Urine Glucose (UA) >=1000 H (Negative) mg/dL Assessment and Plan (1) Epilepsy: Status: Acute Continue current regimen of antiepileptic therapy. Stress compliance. Check drug levels. (2) Meningioma: Status: Acute Stable with no regrowth (3) Alcohol withdrawal seizure with complication: Status: Acute Treat for impending alcohol withdrawal. Alcohol rehab and detox (4) Breakthrough seizure: Status: Acute Procedures Date of Service Date of Service: 09/07/25
[2025-09-07] MEDS: Nicotine 21 MG PATCH.TD24 TRANSDERMA (15:24)
[2025-09-07] MEDS: traZODone HCL 25 MG HALFTAB PO (20:31)
[2025-09-07] MEDS: Flu Vacc TS2025-26(6mo up)/PF 0.5 ML SYRINGE IM (22:56)
[2025-09-07] MEDS: oxyCODONE HCl Immed Release 5 MG TABLET PO (22:58)
[2025-09-08] VITALS (7 sets, daily range): BP systolic 116–165; BP diastolic 64–88; PULSE 87–98; RESP 16–20; TEMP 36.1–37.1; O2SAT 92–96
--- NOTE | 2025-09-08 | EEG_ITS ---
Reason for Exam: Seizure and alcohol withdrawal Roomed Performed: 1 st floor History: This is a 60 year old man with a breakthrough seizure and alcohol withdrawal. He was discharged from [facility] with a similar presentation on 07/30/2025. He reported that he takes his seizure medications everyday but missed a few doses. He drinks about 20 vodka a day and now says that he wants to go into detox and he has made up his mind. Apparently, yesterday morning he fell and EMS was called to help him up. 30 minutes later he had a tonic clonic seizure and EMS was called again. He fell against a car and broke his right humerus. In the ER patient had multiple imaging studies including head and cervical spine CT which were both negative. He has a previous humeral fracture with impaction and has a sling on. Patient has no fever leukocytosis. In the ER, he was started on phenobarbital IV. Given 1 g of IV Keppra, lorazepam, 1 L of IV fluid. He will be admitted for further management and treatment of breakthrough seizure and alcohol intoxication/withdrawal. H/O DVT (deep venous thrombosis), Major depressive disorder, Epilepsy, Alcohol abuse Medication: Acetaminophen, Albuterol Sulfate, Albuterol/Ipratropium, Calcium Carbonate, Carbamazepine, Folic Acid, Gabapentin, Thiamine Complete list on [facility] for review Technical description: Photic stimulation: Completed Hyperventilation: Omitted Behavioral state: answers questions, speech is thick, follows commands State of Consciousness: awake with periods of sleep Skull defect: Yes Sedation: no Handedness: Right Duration of study: 25 min 34 sec This is a 16 channel EEG with an EKG lead. Patient is reported awake with periods of sleep during the tracing. Background EEG rhythm is slow mostly in 6- 8 hertz 5-50 microvolt posteriorly and lower amplitude fast anteriorly. Photic stimulation does not produce any significant driving. Hyperventilation is not performed. Cardiac lead does not reveal any significant abnormality. No asymmetry, paroxysmal activity, sharp waves or spikes are noted. Impression: Mild generalized slowing with no evidence of seizure disorder. MTDD
[2025-09-08] MEDS: oxyCODONE HCl Immed Release 5 MG TABLET PO ×2 (05:15→23:59)
[2025-09-08 05:46] LABS: Hematocrit 39.7 % (42.0-52.0); Hemoglobin 13.4 g/dl (14.0-18.0); Mean Corpuscular HGB Conc 33.8 g/dl (31.0-36.0); Mean Corpuscular Hemoglobin 32.1 pg (27.0-33.0); Mean Corpuscular Volume 95.2 fL (80.0-98.0); NRBC Abs Auto 0.000 X10*3/uL (0.0-0.012); NRBC Pct Auto 0.0 /100WBC (0.0-0.2); Platelet Count 197 X10*3/uL (160-400); Red Blood Count 4.17 X10*6/uL (4.60-5.80); White Blood Count 5.8 X10*3/uL (4.8-10.8)
[2025-09-08 06:10] LABS: Anion Gap 14 (12-20); Blood Urea Nitrogen 10 mg/dL (9-16); Calcium 8.1 mg/dL (8.4-10.2); Carbon Dioxide 24 mmol/L (22-29); Chloride 104 mmol/L (96-108); Creatinine Clr Calc Pharmacy 164.9; Estimated Glomerular Filt Rate > 60; Potassium 3.8 mmol/L (3.3-5.1); Sodium 138 mmol/L (135-145)
[2025-09-08 06:12] LABS: Magnesium 1.8 mg/dL (1.6-2.6)
[2025-09-08] MEDS: Thiamine HCL 100 MG in 0.9 % Sodium Chloride 100 ML 202 MG IV (07:43)
[2025-09-08] MEDS: Nicotine 21 MG PATCH.TD24 TRANSDERMA (07:48)
[2025-09-08] MEDS: Lactated Ringers 1,000 ML 100 ML IVCONT ×2 (07:50→19:38)
[2025-09-08] MEDS: LORazepam 2 MG/ML VIAL IVPUSH (11:25)
[2025-09-08 11:32] LABS: Glucose, Whole Blood 249 mg/dL (60-115)
--- NOTE | 2025-09-08 11:45 | HO.PM.IMPN ---
Subjective Subjective Date of Service: 09/08/25 Interval History: Pt seen this am, A&Ox3, knows he is at [facility] and was brought here for seizures, He complained of pain in his Rt arm which is in sling, denied other sx, has been drinking and not taking his home meds at home. later today, had focal seizure like movement of his left arm per rn, was alert and awake during this period, verbal, and maintaining his airways, episode resolved on its own, Iv Ativan x 1 given, EEG ordered, Review of Systems -ve except as stated above Physical Exam Exam: Exam: Appearing in no acute distress, A&Ox 3 lung sounds are clear to auscultation, on RA heart regular rate rhythm, clear S1, S2 positive bowel sounds, abdomen is soft, non tender neuro patient is alert x3, no focal deficits Vital Signs: Vital Signs: Last Vital Signs Temp 98.4 F 09/08/25 11:38 Pulse 98 09/08/25 11:38 Resp 18 09/08/25 11:38 BP 165/82 H 09/08/25 11:38 Pulse Ox 96 09/08/25 11:38 O2 Del Method Room Air 09/08/25 11:38 BMI result Body Mass Index 40.7 Objective Data Active Medications Acetaminophen (Acetaminophen 325 Mg Tablet) 650 mg PO Q6H PRN PRN Reason: Pain, Mild 1-3,fever,headache Albuterol Sulfate (Albuterol Sulfate 90 Mcg 8 Gm Inhaler) 1 puff INHALE Q6H PRN PRN Reason: shortness of breath or wheezing Albuterol/Ipratropium (Albuterol/Iprat 2.5/0.5mg 3 Ml Ampul.Neb) 3 ml INHALE Q8H PRN PRN Reason: sob/nguyen Calcium Carbonate (Calcium Carbonate 750 Mg Tab.Chew) 750 mg PO Q4H PRN PRN Reason: Heartburn Carbamazepine (Carbamazepine 200 Mg Tablet) 600 mg PO BID [facility] Last Admin: 09/08/25 07:45 Dose: 600 mg Documented By: ZACK Duloxetine HCl (Duloxetine Hcl 20 Mg Capsule.) 20 mg PO BID [facility] Last Admin: 09/08/25 07:45 Dose: 20 mg Documented By: ZACK Folic Acid (Folic Acid 1 Mg Tablet) 1 mg PO DAILY [facility] Last Admin: 09/08/25 07:45 Dose: 1 mg Documented By: ZACK Gabapentin (Gabapentin 100 Mg Capsule) 100 mg PO TID [facility] Last Admin: 09/08/25 07:45 Dose: 100 mg Documented By: ZACK Thiamine HCl 100 mg/ Sodium (Chloride) 101 mls @ 202 mls/hr IV DAILY [facility] Last Infusion: 09/08/25 09:36 Dose: Infused Documented By: ZACK Lactated Ringer's (Lr) 1,000 mls @ 100 mls/hr IVCONT .Q10H [facility] Last Admin: 09/08/25 07:50 Dose: 100 mls/hr Documented By: ZACK Levetiracetam (Levetiracetam 500 Mg Tablet) 1,500 mg PO BID [facility] Last Admin: 09/08/25 07:44 Dose: 1,500 mg Documented By: ZACK Magnesium Hydroxide (Milk Of Magnesia 30 Ml Oral.Susp) 30 ml PO DAILY PRN PRN Reason: Constipation Melatonin (Melatonin 3 Mg Tablet) 6 mg PO BEDTIME PRN PRN Reason: Insomnia Last Admin: 09/07/25 22:56 Dose: 6 mg Documented By: HENRIETTA Morphine Sulfate (Morphine Sulfate 4 Mg/Ml Cartridge) 2 mg IVPUSH Q4H PRN; Protocol PRN Reason: Pain, Severe (Pain Scale 7-10) Last Admin: 09/08/25 07:43 Dose: 2 mg Documented By: ZACK Multivitamins/Vitamin C (Multivitamin Tablet) 1 tab PO DAILY [facility] Last Admin: 09/08/25 07:45 Dose: 1 tab Documented By: ZACK Nicotine (Nicotine 21 Mg Patch.Td24) 21 mg TRANSDERMA DAILY [facility] Last Admin: 09/08/25 07:48 Dose: 21 mg Documented By: ZACK Non-Formulary Medication (Fluticasone Furoate-Vilanterol [Breo Ellipta]) 1 inhalation INHALE DAILY [facility] Ondansetron HCl (Ondansetron Hcl 4 Mg/2 Ml Vial) 4 mg IVPUSH Q8H PRN PRN Reason: Nausea and Vomiting Last Admin: 09/07/25 14:54 Dose: 4 mg Documented By: SIMÓN Oxycodone HCl (Oxycodone Hcl Immed Release 5 Mg Tablet) 5 mg PO Q4H PRN PRN Reason: Pain, Moderate(Pain Scale 4-6) Last Admin: 09/08/25 05:15 Dose: 5 mg Documented By: SHAY Pharmacy Consult (Consult Rx Etoh Phenob Im/Po) 1 each MISCELLANE ONCE PRN; Protocol PRN Reason: Consult order Phenobarbital (Phenobarbital 15 Mg Tablet) 45 mg PO BID [facility]; Protocol Stop: 09/09/25 09:01 Last Admin: 09/08/25 07:44 Dose: 45 mg Documented By: ZACK Phenobarbital (Phenobarbital 15 Mg Tablet) 15 mg PO BID [facility]; Protocol Stop: 09/12/25 09:01 Phenobarbital (Phenobarbital 15 Mg Tablet) 15 mg PO DAILY [facility]; Protocol Stop: 09/13/25 09:01 Phenytoin Sodium (Phenytoin Sodium Extended 100 Mg Capsule) 400 mg PO BID [facility] Last Admin: 09/08/25 07:44 Dose: 400 mg Documented By: ZACK Primidone (Primidone 50 Mg Tablet) 50 mg PO DAILY [facility] Last Admin: 09/08/25 07:45 Dose: 50 mg Documented By: ZACK Sodium Chloride (0.9 % Sodium Chloride Flush 3 Ml Syringe) 3 ml IVFLUSH QSHIFT [facility] Last Admin: 09/08/25 07:24 Dose: Not Given Documented By: ZACK Non-Admin Reason: IV Running Trazodone HCl (Trazodone Hcl 25 Mg Halftab) 25 mg PO BEDTIME [facility] Last Admin: 09/07/25 20:31 Dose: 25 mg Documented By: GUZMAN Labs 09/08/25 05:38 09/08/25 05:38 Labs: Laboratory Results - last 24 hr 09/08/25 09/08/25 05:38 11:24 MCV 95.2 MCH 32.1 MCHC 33.8 RDW 13.5 Plt Count 197 MPV 10.5 Absolute Nucleated RBC 0.000 Nucleated RBC % (auto) 0.0 Anion Gap 14 Estim Creat Clear Calc 164.9 Estimated GFR > 60 POC Glucose 249 H Random Glucose 195 H Calcium 8.1 L D Magnesium 1.8 Assessment and Plan (1) Alcohol dependence: Status: Acute (2) Alcohol withdrawal: Status: Acute (3) Fracture of greater tuberosity of right humerus: Status: Acute (4) Epilepsy: Status: Acute (5) Ataxia: Status: Acute Plan 60-year-old man with a history of alcohol abuse and epilepsy presenting after breakthrough seizure and alcohol withdrawal Breakthrough seizure Unknown if patient is taking his seizure medication as prescribed likely in the setting of alcohol withdrawal Patient received 1 g of IV Keppra in the ER and 1 dose of lorazepam Continue home Keppra, Dilantin, Tegretol Seizure precautions neuro consult eeg bran mri w/ and wo tele neurochecks q4 hrs Alcohol withdrawal and abuse Started on phenobarbital protocol Addiction consultation Monitor closely for worsening signs of withdrawal IV thiamine, oral multivitamin and folic acid IVF Transaminitis Likely secondary to alcohol abuse COPD No acute exacerbation Albuterol as needed DVT prophylaxis with heparin sc Full code diet regular OMN: brain mri, neuro and addiction consult, IVF Quality Stroke Does the patient have a stroke diagnosis?: No VTE Prior VTE?: No VTE Risk Level:: Medical - moderate - high VTE Device Contraindication: Treatment Not Indicated VTE Drug Contraindication: N/A - Med Ordered
--- NOTE | 2025-09-08 13:34 | MHC.RECOVRN ---
TW attempted to meet with pt in 358- after consult placed to Addiction Medicine for AUD. Intention was to discuss recovery support and resources, however due to lethargy pt was unable to actively participate in assessment. TW to revisit pt later today
--- NOTE | 2025-09-08 15:36 | MHC.CM.PN ---
PT CONTINUES TO BE ACUTE LOC PLAN REMAINS HOME
[2025-09-08 16:12] LABS: Glucose, Whole Blood 208 mg/dL (60-115)
--- NOTE | 2025-09-08 17:08 | PC.NURSE ---
[employer] L[employer] INSPECTOR called at 1120. KAVITA Hernandez found t/w in the hallway and reported pt to be having seizure like activity. Patient admitted with breakthrough seizures d/t ETOH withdrawal. When t/w arrived to patients' bedside pt was laying on his back and talking but eyes were rolling backwards and tremors noted to bilateral upper extremities. Patient able to speak but not very clearly pt able to maintain a clear airway. VSS with exception to elevated BP 165/82. 2mg ativan IVP stat given at 1130 with good effect. Pt speaking the whole time but not always making sense. STAT EEG and MRI of brain ordered by provider as well as tele monitor. Seizure pads and telesitter already in place prior to rapid response called. Pt is sinus tachy on tele.
--- NOTE | 2025-09-08 17:40 | MHC.RECOVRN ---
T/w attempted to meet pt is discuss recovery supports and options after consult to Addiction Medicine received for AUD. Attempted to meet pt at approximately 1300, however, pt was lethargic after receiving mediations and unable to particpate. Reattempted to meet pt at 1730 and was instructed that pt is currently receiving an MRI Will revisit pt in the morning to complete Recovery/BH pablo
[2025-09-08 20:44] LABS: Glucose, Whole Blood 185 mg/dL (60-115)
[2025-09-08] MEDS: traZODone HCL 25 MG HALFTAB PO (21:13)
[2025-09-09 03:52] VITALS: BP 135/65; PULSE 88; RESP 20; TEMP 36.2; O2SAT 93
[2025-09-09] MEDS: Lactated Ringers 1,000 ML 100 ML IVCONT (04:48)
[2025-09-09 07:00] VITALS: BP 152/90; PULSE 90; RESP 17; TEMP 36.8; O2SAT 94
[2025-09-09 07:14] LABS: Glucose, Whole Blood 160 mg/dL (60-115)
[2025-09-09 07:15] LABS: Alanine Aminotransferase 37 U/L (0-40); Albumin Level 3.3 g/dL (3.5-5.0); Alkaline Phosphatase 95 U/L (39-117); Anion Gap 12 (12-20); Aspartate Amino Transferase 25 U/L (5-37); Blood Urea Nitrogen 7 mg/dL (9-16); Calcium 8.3 mg/dL (8.4-10.2); Carbon Dioxide 24 mmol/L (22-29); Chloride 108 mmol/L (96-108); Creatinine Clr Calc Pharmacy 172.9; Estimated Glomerular Filt Rate > 60; Potassium 3.8 mmol/L (3.3-5.1); Sodium 140 mmol/L (135-145); Total Protein 5.7 g/dL (6.5-8.0)
[2025-09-09] MEDS: Thiamine HCL 100 MG in 0.9 % Sodium Chloride 100 ML 202 MG IV (08:31)
[2025-09-09] MEDS: Nicotine 21 MG PATCH.TD24 TRANSDERMA (08:32)
[2025-09-09] MEDS: oxyCODONE HCl Immed Release 5 MG TABLET PO ×2 (09:29→16:51)
[2025-09-09 11:10] LABS: Glucose, Whole Blood 224 mg/dL (60-115)
[2025-09-09 11:31] VITALS: BP 118/73; PULSE 94; RESP 16; TEMP 36.6; O2SAT 96
--- NOTE | 2025-09-09 12:20 | HO.PM.IMPN ---
Subjective Subjective Date of Service: 09/09/25 Interval History: Pt seen this am , sitting in recliner, awake and oriented, looks much better than yesterday, CIWA less than 5, complains of pain in his Rt shoulder, denies other sx, PT reccs STR, pt agreeable, phenytoin level high this am, holding it, neuro made aware Review of Systems -ve except as stated above Physical Exam Exam: Exam: Appearing in no acute distress, A&Ox 3 lung sounds are clear to auscultation, on RA heart regular rate rhythm, clear S1, S2 positive bowel sounds, abdomen is soft, non tender neuro patient is alert x3, no focal deficits rt shoulder ROM limited due to pain, sling off this am Vital Signs: Vital Signs: Last Vital Signs Temp 98 F 09/09/25 11:31 Pulse 94 09/09/25 11:31 Resp 16 09/09/25 11:31 BP 118/73 09/09/25 11:31 Pulse Ox 96 09/09/25 11:31 O2 Del Method Room Air 09/09/25 11:31 BMI result Body Mass Index 40.7 Objective Data Active Medications Acetaminophen (Acetaminophen 325 Mg Tablet) 650 mg PO Q6H PRN PRN Reason: Pain, Mild 1-3,fever,headache Last Admin: 09/08/25 23:58 Dose: 650 mg Documented By: LEANDER Comments: per pt request Albuterol Sulfate (Albuterol Sulfate 90 Mcg 8 Gm Inhaler) 1 puff INHALE Q6H PRN PRN Reason: shortness of breath or wheezing Albuterol/Ipratropium (Albuterol/Iprat 2.5/0.5mg 3 Ml Ampul.Neb) 3 ml INHALE Q8H PRN PRN Reason: sob/nguyen Calcium Carbonate (Calcium Carbonate 750 Mg Tab.Chew) 750 mg PO Q4H PRN PRN Reason: Heartburn Carbamazepine (Carbamazepine 200 Mg Tablet) 600 mg PO BID [facility] Last Admin: 09/09/25 08:32 Dose: 600 mg Documented By: BALTAZAR Diazepam (Diazepam 10 Mg/2 Ml Cartridge) 2.5 mg IVPUSH Q4H PRN PRN Reason: Seizures Duloxetine HCl (Duloxetine Hcl 20 Mg Capsule.Dr) 20 mg PO BID [facility] Last Admin: 09/09/25 08:32 Dose: 20 mg Documented By: BALTAZAR Folic Acid (Folic Acid 1 Mg Tablet) 1 mg PO DAILY [facility] Last Admin: 09/09/25 08:32 Dose: 1 mg Documented By: BALTAZAR Gabapentin (Gabapentin 100 Mg Capsule) 100 mg PO TID [facility] Last Admin: 09/09/25 08:32 Dose: 100 mg Documented By: BALTAZAR Heparin Sodium (Porcine) (Heparin Sodium,Porcine 5,000 Unit/Ml Vial) 5,000 unit SUBCUT Q8H [facility] Last Admin: 09/09/25 11:56 Dose: 5,000 unit Documented By: RONAK Thiamine HCl 100 mg/ Sodium (Chloride) 101 mls @ 202 mls/hr IV DAILY [facility] Last Infusion: 09/09/25 09:32 Dose: Infused Documented By: BALTAZAR Insulin Human Lispro (Insulin Lispro 100 Unit/Ml 3 Ml Vial) 0 unit SUBCUT QIDACHS [facility]; Protocol Last Admin: 09/09/25 11:56 Dose: 4 unit Documented By: RONAK Levetiracetam (Levetiracetam 500 Mg Tablet) 1,500 mg PO BID [facility] Last Admin: 09/09/25 08:31 Dose: 1,500 mg Documented By: BALTAZAR Magnesium Hydroxide (Milk Of Magnesia 30 Ml Oral.Susp) 30 ml PO DAILY PRN PRN Reason: Constipation Melatonin (Melatonin 3 Mg Tablet) 6 mg PO BEDTIME PRN PRN Reason: Insomnia Last Admin: 09/07/25 22:56 Dose: 6 mg Documented By: HENRIETTA Morphine Sulfate (Morphine Sulfate 4 Mg/Ml Cartridge) 2 mg IVPUSH Q4H PRN; Protocol PRN Reason: Pain, Severe (Pain Scale 7-10) Last Admin: 09/09/25 04:59 Dose: 2 mg Documented By: LEANDER Multivitamins/Vitamin C (Multivitamin Tablet) 1 tab PO DAILY [facility] Last Admin: 09/09/25 08:32 Dose: 1 tab Documented By: BALTAZAR Nicotine (Nicotine 21 Mg Patch.Td24) 21 mg TRANSDERMA DAILY [facility] Last Admin: 09/09/25 08:32 Dose: 21 mg Documented By: BALTAZAR Non-Formulary Medication (Fluticasone Furoate-Vilanterol [Breo Ellipta]) 1 inhalation INHALE DAILY [facility] Ondansetron HCl (Ondansetron Hcl 4 Mg/2 Ml Vial) 4 mg IVPUSH Q8H PRN PRN Reason: Nausea and Vomiting Last Admin: 09/07/25 14:54 Dose: 4 mg Documented By: SIMÓN Oxycodone HCl (Oxycodone Hcl Immed Release 5 Mg Tablet) 5 mg PO Q4H PRN PRN Reason: Pain, Moderate(Pain Scale 4-6) Last Admin: 09/09/25 09:29 Dose: 5 mg Documented By: BALTAZAR Pharmacy Consult (Consult Rx Etoh Phenob Im/Po) 1 each MISCELLANE ONCE PRN; Protocol PRN Reason: Consult order Phenobarbital (Phenobarbital 15 Mg Tablet) 15 mg PO BID [facility]; Protocol Stop: 09/12/25 09:01 Phenobarbital (Phenobarbital 15 Mg Tablet) 15 mg PO DAILY [facility]; Protocol Stop: 09/13/25 09:01 Phenytoin Sodium (Phenytoin Sodium Extended 100 Mg Capsule) 400 mg PO BID [facility] On Hold: 09/09/25 08:30 Last Admin: 09/09/25 07:46 Dose: Not Given Documented By: BALTAZAR Non-Admin Reason: Physician Held Med Primidone (Primidone 50 Mg Tablet) 50 mg PO DAILY [facility] Last Admin: 09/09/25 08:31 Dose: 50 mg Documented By: BALTAZAR Sodium Chloride (0.9 % Sodium Chloride Flush 3 Ml Syringe) 3 ml IVFLUSH QSHIFT [facility] Last Admin: 09/09/25 07:25 Dose: Not Given Documented By: BALTAZAR Non-Admin Reason: IV Running Trazodone HCl (Trazodone Hcl 25 Mg Halftab) 25 mg PO BEDTIME [facility] Last Admin: 09/08/25 21:13 Dose: 25 mg Documented By: LEANDER Labs 09/08/25 05:38 09/09/25 06:16 Labs: Laboratory Results - last 24 hr 09/08/25 09/08/25 09/09/25 16:08 20:40 06:16 Anion Gap 12 Estim Creat Clear Calc 172.9 Estimated GFR > 60 POC Glucose 208 H 185 H Random Glucose 149 H Calcium 8.3 L Total Bilirubin 0.2 AST 25 ALT 37 Alkaline Phosphatase 95 Total Protein 5.7 L Albumin 3.3 L Phenytoin 25.4 H* 10/30/25 10/30/25 07:00 11:07 Anion Gap Estim Creat Clear Calc Estimated GFR POC Glucose 160 H 224 H Random Glucose Calcium Total Bilirubin AST ALT Alkaline Phosphatase Total Protein Albumin Phenytoin Assessment and Plan (1) Alcohol dependence: Status: Acute (2) Alcohol withdrawal: Status: Acute (3) Meningioma: Status: Acute (4) Fracture of greater tuberosity of right humerus: Status: Acute (5) Epilepsy: Status: Acute Plan 60-year-old man with a history of alcohol abuse and epilepsy presenting after breakthrough seizure and alcohol withdrawal Breakthrough seizure Unknown if patient is taking his seizure medication as prescribed likely in the setting of alcohol withdrawal Patient received 1 g of IV Keppra in the ER and 1 dose of lorazepam was cont on keppra, dilantin and tegretol OA, Dilantin level high this am, its being held, Brain MRI no acute change, eeg pending Dr Guerrero consulted, re an alternative to phenytoin, given his prior hx of phenytoin toxicity. ?? depakote reccs holding dilantin for 24 hrs, rec checking level again tomorrow, if therapeutic restart at 300 mg bid, tele neurochecks Alcohol withdrawal and abuse Started on phenobarbital protocol Addiction consulted, appreciate reccs thiamine can be switched to Po upon dc PT reccs STR, cm aware cont supplements dc IVF Transaminitis Likely secondary to alcohol abuse COPD No acute exacerbation Albuterol as needed DVT prophylaxis with heparin sc Full code diet regular OMN:pending STR placement, recheck dilantin levels tomorrow, Quality Stroke Does the patient have a stroke diagnosis?: No VTE Prior VTE?: No VTE Risk Level:: Medical - moderate - high VTE Device Contraindication: Treatment Not Indicated VTE Drug Contraindication: N/A - Med Ordered
--- NOTE | 2025-09-09 12:38 | MHC.RECOVRN ---
TW met with pt in after consult placed to Addiction Medicine for AUD Recovery/BH Eval completed. Please see for additional details.? Pt provided education and written resources for recovery supports and options Pt declines intervention, [facility], or outpatient appt for treatment related to AUD at this time.? Pt was provided with TW?s contact information if questions or concerns arise which he denies at this time.?
--- NOTE | 2025-09-09 13:14 | HO.ADDICTPRO ---
Subjective Subjective Date of Service: 09/09/25 Reason For Visit: breakthrough seizure Interim History: Patient seen in follow up for AUD and withdrawal. Rapid response called yesterday for seizure. Today, patient is awake, alert, somewhat engaged in interview. States that he feels okay, weak, very weak . Discussed how alcohol use is impacting underlying seizure disorder-- I know, I know. I'm going to stop Declined to discuss his plan for this, simply stating I'm ok. I know . Overall appears comfortable. Significant tremor when he lifts his left arm--unable to lift right arm d/t fracture. Review of Systems Acute medical concerns: Yes Review of Systems Constitutional: Reports as per HPI and Reports no additional constitutional complaints Mental Status Exam Mental Status Exam Level of Consciousness: Awake and Alert Patient Behavior: Appropriate Affect Description: Calm Speech Pattern: Clear Thought Content: positive for [place] Judgement: Fair Diagnostics Vital Signs (24Hr): Vital Signs - 24 hr 09/08/25 15:54 09/08/25 18:56 09/08/25 21:03 Temperature 97.8 F 97.8 F 97.5 F Pulse Rate 93 88 92 Respiratory Rate 16 18 17 Blood Pressure 144/85 H 139/81 116/64 Pulse Oximetry 93 92 92 Oxygen Delivery Method Room Air Room Air Room Air 09/08/25 23:49 09/09/25 03:52 09/09/25 07:00 Temperature 97.7 F 97.1 F 98.2 F Pulse Rate 92 88 90 Respiratory Rate 20 20 17 Blood Pressure 135/88 135/65 152/90 H Pulse Oximetry 93 93 94 Oxygen Delivery Method Room Air Room Air Room Air 09/09/25 11:31 Temperature 98 F Pulse Rate 94 Respiratory Rate 16 Blood Pressure 118/73 Pulse Oximetry 96 Oxygen Delivery Method Room Air BMI result Body Mass Index 40.7 Labs 09/08/25 05:38 09/09/25 06:16 Labs: Laboratory Results - last 48 hr 09/08/25 09/08/25 09/08/25 05:38 11:24 16:08 WBC 5.8 RBC 4.17 L Hgb 13.4 L Hct 39.7 L MCV 95.2 MCH 32.1 MCHC 33.8 RDW 13.5 Plt Count 197 MPV 10.5 Absolute Nucleated RBC 0.000 Nucleated RBC % (auto) 0.0 Sodium 138 Potassium 3.8 Chloride 104 Carbon Dioxide 24 Anion Gap 14 BUN 10 Creatinine 0.65 Estim Creat Clear Calc 164.9 Estimated GFR > 60 POC Glucose 249 H 208 H Random Glucose 195 H Calcium 8.1 L D Magnesium 1.8 Total Bilirubin AST ALT Alkaline Phosphatase Total Protein Albumin Phenytoin 09/08/25 09/09/25 09/09/25 20:40 06:16 07:00 WBC RBC Hgb Hct MCV MCH MCHC RDW Plt Count MPV Absolute Nucleated RBC Nucleated RBC % (auto) Sodium 140 Potassium 3.8 Chloride 108 Carbon Dioxide 24 Anion Gap 12 BUN 7 L Creatinine 0.62 Estim Creat Clear Calc 172.9 Estimated GFR > 60 POC Glucose 185 H 160 H Random Glucose 149 H Calcium 8.3 L Magnesium Total Bilirubin 0.2 AST 25 ALT 37 Alkaline Phosphatase 95 Total Protein 5.7 L Albumin 3.3 L Phenytoin 25.4 H* 09/09/25 11:07 WBC RBC Hgb Hct MCV MCH MCHC RDW Plt Count MPV Absolute Nucleated RBC Nucleated RBC % (auto) Sodium Potassium Chloride Carbon Dioxide Anion Gap BUN Creatinine Estim Creat Clear Calc Estimated GFR POC Glucose 224 H Random Glucose Calcium Magnesium Total Bilirubin AST ALT Alkaline Phosphatase Total Protein Albumin Phenytoin Medications Medications Current Medications Acetaminophen (Acetaminophen 325 Mg Tablet) 650 mg PO Q6H PRN PRN Reason: Pain, Mild 1-3,fever,headache Last Admin: 09/08/25 23:58 Dose: 650 mg Albuterol Sulfate (Albuterol Sulfate 90 Mcg 8 Gm Inhaler) 1 puff INHALE Q6H PRN PRN Reason: shortness of breath or wheezing Albuterol/Ipratropium (Albuterol/Iprat 2.5/0.5mg 3 Ml Ampul.Neb) 3 ml INHALE Q8H PRN PRN Reason: sob/nguyen Calcium Carbonate (Calcium Carbonate 750 Mg Tab.Chew) 750 mg PO Q4H PRN PRN Reason: Heartburn Carbamazepine (Carbamazepine 200 Mg Tablet) 600 mg PO BID [facility] Last Admin: 09/09/25 08:32 Dose: 600 mg Diazepam (Diazepam 10 Mg/2 Ml Cartridge) 2.5 mg IVPUSH Q4H PRN PRN Reason: Seizures Duloxetine HCl (Duloxetine Hcl 20 Mg Capsule.Dr) 20 mg PO BID [facility] Last Admin: 09/09/25 08:32 Dose: 20 mg Folic Acid (Folic Acid 1 Mg Tablet) 1 mg PO DAILY [facility] Last Admin: 09/09/25 08:32 Dose: 1 mg Gabapentin (Gabapentin 100 Mg Capsule) 100 mg PO TID [facility] Last Admin: 09/09/25 08:32 Dose: 100 mg Heparin Sodium (Porcine) (Heparin Sodium,Porcine 5,000 Unit/Ml Vial) 5,000 unit SUBCUT Q8H [facility] Last Admin: 09/09/25 11:56 Dose: 5,000 unit Thiamine HCl 100 mg/ Sodium (Chloride) 101 mls @ 202 mls/hr IV DAILY [facility] Last Infusion: 09/09/25 09:32 Dose: Infused Insulin Human Lispro (Insulin Lispro 100 Unit/Ml 3 Ml Vial) 0 unit SUBCUT QIDACHS [facility]; Protocol Last Admin: 09/09/25 11:56 Dose: 4 unit Levetiracetam (Levetiracetam 500 Mg Tablet) 1,500 mg PO BID [facility] Last Admin: 09/09/25 08:31 Dose: 1,500 mg Magnesium Hydroxide (Milk Of Magnesia 30 Ml Oral.Susp) 30 ml PO DAILY PRN PRN Reason: Constipation Melatonin (Melatonin 3 Mg Tablet) 6 mg PO BEDTIME PRN PRN Reason: Insomnia Last Admin: 09/07/25 22:56 Dose: 6 mg Morphine Sulfate (Morphine Sulfate 4 Mg/Ml Cartridge) 2 mg IVPUSH Q4H PRN; Protocol PRN Reason: Pain, Severe (Pain Scale 7-10) Last Admin: 09/09/25 04:59 Dose: 2 mg Multivitamins/Vitamin C (Multivitamin Tablet) 1 tab PO DAILY [facility] Last Admin: 09/09/25 08:32 Dose: 1 tab Nicotine (Nicotine 21 Mg Patch.Td24) 21 mg TRANSDERMA DAILY [facility] Last Admin: 09/09/25 08:32 Dose: 21 mg Non-Formulary Medication (Fluticasone Furoate-Vilanterol [Breo Ellipta]) 1 inhalation INHALE DAILY [facility] Ondansetron HCl (Ondansetron Hcl 4 Mg/2 Ml Vial) 4 mg IVPUSH Q8H PRN PRN Reason: Nausea and Vomiting Last Admin: 09/07/25 14:54 Dose: 4 mg Oxycodone HCl (Oxycodone Hcl Immed Release 5 Mg Tablet) 5 mg PO Q4H PRN PRN Reason: Pain, Moderate(Pain Scale 4-6) Last Admin: 09/09/25 09:29 Dose: 5 mg Pharmacy Consult (Consult Rx Etoh Phenob Im/Po) 1 each MISCELLANE ONCE PRN; Protocol PRN Reason: Consult order Phenobarbital (Phenobarbital 15 Mg Tablet) 15 mg PO BID [facility]; Protocol Stop: 09/12/25 09:01 Phenobarbital (Phenobarbital 15 Mg Tablet) 15 mg PO DAILY [facility]; Protocol Stop: 09/13/25 09:01 Phenytoin Sodium (Phenytoin Sodium Extended 100 Mg Capsule) 400 mg PO BID [facility] On Hold: 09/09/25 08:30 Last Admin: 09/09/25 07:46 Dose: Not Given Primidone (Primidone 50 Mg Tablet) 50 mg PO DAILY [facility] Last Admin: 09/09/25 08:31 Dose: 50 mg Sodium Chloride (0.9 % Sodium Chloride Flush 3 Ml Syringe) 3 ml IVFLUSH QSHIFT [facility] Last Admin: 09/09/25 07:25 Dose: Not Given Trazodone HCl (Trazodone Hcl 25 Mg Halftab) 25 mg PO BEDTIME [facility] Last Admin: 09/08/25 21:13 Dose: 25 mg Allergies Allergies Allergy/AdvReac Type Severity Reaction Status Date / Time No Known Allergies Allergy Verified 09/06/25 23:57 Assessment & Plan Assessment & Plan (1) Alcohol use disorder: Status: Acute Code(s): F10.90 - Alcohol use, unspecified, uncomplicated Assessment and Plan: withdrawal resolving with phenobarbital pre-contemplative in terms of changing/addressing drinking. limited insight regarding ongoing alcohol use and seizures encouraged to continue thiamine and folic acid once home --declined offer by portfolio consultant to assist with establishing primary care and making appt while here. no additional follow up unless requested by patient or significant other Total time managing care of this patient today __20__ minutes.
[2025-09-09] MEDS: 0.9 % Sodium Chloride Flush 3 ML SYRINGE IVFLUSH ×2 (15:40→21:25)
--- NOTE | 2025-09-09 15:45 | MHC.CM.PN ---
CM MET WITH PT TO DISCUSS DCP PT KNOWS THAT STR HAS BEEN RECOMMENDED HE SAYS HE MAY BE WILLING TO GO ALTHOUGH HE IS VERY APPREHENSIVE HE IS AGREEABLE TO A BROAD REFERRAL BEING MADE
[2025-09-09 16:00] VITALS: BP 130/60; PULSE 93; RESP 18; TEMP 36.2; O2SAT 92
[2025-09-09 16:36] LABS: Glucose, Whole Blood 143 mg/dL (60-115)
[2025-09-09 19:55] LABS: Glucose, Whole Blood 262 mg/dL (60-115)
[2025-09-09 20:00] VITALS: BP 142/70; PULSE 92; RESP 18; TEMP 36.6; O2SAT 93
[2025-09-09] MEDS: traZODone HCL 25 MG HALFTAB PO (21:24)
[2025-09-09 23:36] VITALS: BP 146/68; PULSE 69; RESP 20; TEMP 36.1; O2SAT 93
[2025-09-10] VITALS (7 sets, daily range): BP systolic 120–155; BP diastolic 56–91; PULSE 87–95; RESP 16–18; TEMP 36.1–36.6; O2SAT 93–96
[2025-09-10] MEDS: oxyCODONE HCl Immed Release 5 MG TABLET PO ×3 (03:28→14:30)
[2025-09-10 07:14] LABS: Glucose, Whole Blood 148 mg/dL (60-115)
[2025-09-10] MEDS: Thiamine HCL 100 MG in 0.9 % Sodium Chloride 100 ML 202 MG IV (09:15)
[2025-09-10] MEDS: Nicotine 21 MG PATCH.TD24 TRANSDERMA (09:19)
[2025-09-10] MEDS: 0.9 % Sodium Chloride Flush 3 ML SYRINGE IVFLUSH ×2 (09:22→20:42)
--- NOTE | 2025-09-10 11:01 | P.PNIM_ITS ---
Subjective Subjective Date of Service: 09/10/25 Interval History: Seen and examined, no seiure overnight, no sings of withdrawal has some shoulder pain, Physical Exam 2 Exam: Exam: Appearing in no acute distress, A&Ox 3 lung sounds are clear to auscultation, on RA heart regular rate rhythm, clear S1, S2 positive bowel sounds, abdomen is soft, non tender neuro patient is alert x3, no focal deficits rt shoulder ROM limited due to pain, sling off this am Vital Signs: Vital Signs: Last Vital Signs Temp 98 F 09/10/25 08:50 Pulse 95 09/10/25 08:50 Resp 16 09/10/25 08:50 BP 140/71 H 09/10/25 08:50 Pulse Ox 95 09/10/25 08:50 O2 Del Method Room Air 09/10/25 08:50 BMI result Body Mass Index 40.7 Objective Data Active Medications Acetaminophen (Acetaminophen 325 Mg Tablet) 650 mg PO Q6H PRN PRN Reason: Pain, Mild 1-3,fever,headache Last Admin: 09/08/25 23:58 Dose: 650 mg Documented By: LEANDER Comments: per pt request Albuterol Sulfate (Albuterol Sulfate 90 Mcg 8 Gm Inhaler) 1 puff INHALE Q6H PRN PRN Reason: shortness of breath or wheezing Albuterol/Ipratropium (Albuterol/Iprat 2.5/0.5mg 3 Ml Ampul.Neb) 3 ml INHALE Q8H PRN PRN Reason: sob/nguyen Calcium Carbonate (Calcium Carbonate 750 Mg Tab.Chew) 750 mg PO Q4H PRN PRN Reason: Heartburn Carbamazepine (Carbamazepine 200 Mg Tablet) 600 mg PO BID [facility] Last Admin: 09/10/25 09:17 Dose: 600 mg Documented By: BALTAZAR Diazepam (Diazepam 10 Mg/2 Ml Cartridge) 2.5 mg IVPUSH Q4H PRN PRN Reason: Seizures Duloxetine HCl (Duloxetine Hcl 20 Mg Capsule.) 20 mg PO BID [facility] Last Admin: 09/10/25 09:18 Dose: 20 mg Documented By: BALTAZAR Folic Acid (Folic Acid 1 Mg Tablet) 1 mg PO DAILY [facility] Last Admin: 09/10/25 09:18 Dose: 1 mg Documented By: BALTAZAR Gabapentin (Gabapentin 100 Mg Capsule) 100 mg PO TID [facility] Last Admin: 09/10/25 09:18 Dose: 100 mg Documented By: BALTAZAR Heparin Sodium (Porcine) (Heparin Sodium,Porcine 5,000 Unit/Ml Vial) 5,000 unit SUBCUT Q8H [facility] Last Admin: 09/10/25 03:01 Dose: 5,000 unit Documented By: CLFITON Thiamine HCl 100 mg/ Sodium (Chloride) 101 mls @ 202 mls/hr IV DAILY [facility] Last Infusion: 09/10/25 09:45 Dose: Infused Documented By: BALTAZAR Insulin Human Lispro (Insulin Lispro 100 Unit/Ml 3 Ml Vial) 0 unit SUBCUT QIDACHS [facility]; Protocol Last Admin: 09/10/25 07:35 Dose: Not Given Documented By: BALTAZAR Non-Admin Reason: No Insulin Coverage Levetiracetam (Levetiracetam 500 Mg Tablet) 1,500 mg PO BID [facility] Last Admin: 09/10/25 09:18 Dose: 1,500 mg Documented By: BALTAZAR Magnesium Hydroxide (Milk Of Magnesia 30 Ml Oral.Susp) 30 ml PO DAILY PRN PRN Reason: Constipation Melatonin (Melatonin 3 Mg Tablet) 6 mg PO BEDTIME PRN PRN Reason: Insomnia Last Admin: 09/07/25 22:56 Dose: 6 mg Documented By: HENRIETTA Morphine Sulfate (Morphine Sulfate 4 Mg/Ml Cartridge) 2 mg IVPUSH Q4H PRN; Protocol PRN Reason: Pain, Severe (Pain Scale 7-10) Last Admin: 09/10/25 03:01 Dose: 2 mg Documented By: CLIFTON Multivitamins/Vitamin C (Multivitamin Tablet) 1 tab PO DAILY [facility] Last Admin: 09/10/25 09:18 Dose: 1 tab Documented By: BALTAZAR Nicotine (Nicotine 21 Mg Patch.Td24) 21 mg TRANSDERMA DAILY [facility] Last Admin: 09/10/25 09:19 Dose: 21 mg Documented By: BALTAZAR Non-Formulary Medication (Fluticasone Furoate-Vilanterol [Breo Ellipta]) 1 inhalation INHALE DAILY [facility] Ondansetron HCl (Ondansetron Hcl 4 Mg/2 Ml Vial) 4 mg IVPUSH Q8H PRN PRN Reason: Nausea and Vomiting Last Admin: 09/07/25 14:54 Dose: 4 mg Documented By: SIMÓN Oxycodone HCl (Oxycodone Hcl Immed Release 5 Mg Tablet) 5 mg PO Q4H PRN PRN Reason: Pain, Moderate(Pain Scale 4-6) Last Admin: 09/10/25 09:40 Dose: 5 mg Documented By: BALTAZAR Pharmacy Consult (Consult Rx Etoh Phenob Im/Po) 1 each MISCELLANE ONCE PRN; Protocol PRN Reason: Consult order Phenobarbital (Phenobarbital 15 Mg Tablet) 15 mg PO BID [facility]; Protocol Stop: 09/12/25 09:01 Phenobarbital (Phenobarbital 15 Mg Tablet) 15 mg PO DAILY [facility]; Protocol Stop: 09/13/25 09:01 Phenytoin Sodium (Phenytoin Sodium Extended 100 Mg Capsule) 200 mg PO BID [facility] Primidone (Primidone 50 Mg Tablet) 50 mg PO DAILY [facility] Last Admin: 09/10/25 09:18 Dose: 50 mg Documented By: BALTAZAR Sodium Chloride (0.9 % Sodium Chloride Flush 3 Ml Syringe) 3 ml IVFLUSH QSHIFT [facility] Last Admin: 09/10/25 09:22 Dose: 3 ml Documented By: BALTAZAR Trazodone HCl (Trazodone Hcl 25 Mg Halftab) 25 mg PO BEDTIME [facility] Last Admin: 09/09/25 21:24 Dose: 25 mg Documented By: CLIFTON Labs 09/08/25 05:38 09/09/25 06:16 Labs: Laboratory Results - last 24 hr 09/09/25 09/09/25 09/09/25 11:07 16:32 19:48 POC Glucose 224 H 143 H 262 H Phenytoin 09/10/25 09/10/25 06:05 06:47 POC Glucose 148 H Phenytoin 20.9 H Assessment and Plan (1) Alcohol dependence: Status: Acute (2) Alcohol withdrawal: Status: Acute (3) Meningioma: Status: Acute (4) Fracture of greater tuberosity of right humerus: Status: Acute (5) Epilepsy: Status: Acute Plan 60-year-old man with a history of alcohol abuse and epilepsy presenting after breakthrough seizure and alcohol withdrawal Breakthrough seizure Unknown if patient is taking his seizure medication as prescribed likely in the setting of alcohol withdrawal Patient received 1 g of IV Keppra in the ER and 1 dose of lorazepam was cont on keppra, dilantin and tegretol Dilantin level high this am, its being held, Brain MRI no acute change, eeg--Mild generalized slowing with no evidence of seizure disorder. Neuro recommend continue present meds and make sure he is taking them. Dilantin level today (09/10) is 20.9, restarting Dilantin at 300 bid Alcohol withdrawal and abuse Started on phenobarbital protocol Addiction consulted, appreciate reccs continue folic acid and thiamine PT reccs STR, cm aware Transaminitis Likely secondary to alcohol abuse COPD No acute exacerbation Albuterol as needed Right shoulder Impaction type fracture of the greater tuberosity as above.--seen by ortho Sling for comfort- ok to perform pendulums, elbow and wrist rom, beth scap stabilization -no lifting arm away from body in ER or above shoulder height. -no lifting more than 2lbs with left arm -Follow up outpatient ortho in 4-6 weeks DVT prophylaxis with heparin sc Full code diet regular OMN:pending STR placement, but he's refusing Quality Stroke Does the patient have a stroke diagnosis?: No VTE Prior VTE?: No VTE Risk Level:: Medical - moderate - high VTE Device Contraindication: Treatment Not Indicated VTE Drug Contraindication: N/A - Med Ordered
[2025-09-10 11:08] LABS: Glucose, Whole Blood 211 mg/dL (60-115)
[2025-09-10 14:39] LABS: Levetiracetam Keppra 51.0 mcg/mL (6.0-46.0)
--- NOTE | 2025-09-10 15:56 | MHC.CM.PN ---
cm met with pt who does not want rehab he says he can go to his brothers which i tried to confirm by calling brother his phone is disconnected he says if not his brother he can stay with his girlfriend daren at [address]
[2025-09-10 16:20] LABS: Glucose, Whole Blood 144 mg/dL (60-115)
[2025-09-10] MEDS: traZODone HCL 25 MG HALFTAB PO (20:39)
[2025-09-10 21:01] LABS: Glucose, Whole Blood 176 mg/dL (60-115)
[2025-09-11] MEDS: oxyCODONE HCl Immed Release 5 MG TABLET PO ×2 (03:40→07:54)
[2025-09-11 03:50] VITALS: BP 148/68; PULSE 88; RESP 18; TEMP 36.1; O2SAT 96
[2025-09-11] MEDS: Thiamine HCL 100 MG in 0.9 % Sodium Chloride 100 ML 202 MG IV (07:23)
[2025-09-11] MEDS: Nicotine 21 MG PATCH.TD24 TRANSDERMA (07:32)
[2025-09-11] MEDS: 0.9 % Sodium Chloride Flush 3 ML SYRINGE IVFLUSH ×3 (07:35→20:15)
[2025-09-11 07:49] VITALS: BP 145/78; PULSE 80; RESP 16; TEMP 36.2; O2SAT 92
[2025-09-11 08:16] LABS: Glucose, Whole Blood 145 mg/dL (60-115)
[2025-09-11 11:06] VITALS: BP 128/65; PULSE 98; RESP 16; TEMP 35.9; O2SAT 93
[2025-09-11 11:22] LABS: Glucose, Whole Blood 231 mg/dL (60-115)
[2025-09-11] MEDS: oxyCODONE HCl Immed Release 5 MG TABLET 10 MG PO ×3 (11:59→20:12)
--- NOTE | 2025-09-11 13:30 | HO.PM.IMPN ---
Subjective Subjective Date of Service: 09/11/25 Interval History: No acute issues overnight CIWA 0-1 Review of Systems Denies chest pain Denies shortness of breath Denies nausea vomiting diarrhea Denies fever chills Physical Exam Vital Signs: Vital Signs: Last Vital Signs Temp 96.7 F L 09/11/25 11:06 Pulse 98 09/11/25 11:06 Resp 16 09/11/25 11:06 BP 128/65 09/11/25 11:06 Pulse Ox 93 09/11/25 11:06 O2 Del Method Room Air 09/11/25 11:06 BMI result Body Mass Index 40.7 Const: Other: Awake alert no acute distress Resp: Other: Clear to auscultation bilaterally no rales rhonchi or wheezes Cardio: Other: No S4; positive S1-S2; no S3 murmurs rubs or gallops GI: Other: Soft nontender nondistended normoactive bowel sounds Objective Data Active Medications Acetaminophen (Acetaminophen 325 Mg Tablet) 650 mg PO Q6H PRN PRN Reason: Pain, Mild 1-3,fever,headache Last Admin: 09/08/25 23:58 Dose: 650 mg Documented By: LEANDER Comments: per pt request Albuterol Sulfate (Albuterol Sulfate 90 Mcg 8 Gm Inhaler) 1 puff INHALE Q6H PRN PRN Reason: shortness of breath or wheezing Albuterol/Ipratropium (Albuterol/Iprat 2.5/0.5mg 3 Ml Ampul.Neb) 3 ml INHALE Q8H PRN PRN Reason: sob/nguyen Calcium Carbonate (Calcium Carbonate 750 Mg Tab.Chew) 750 mg PO Q4H PRN PRN Reason: Heartburn Carbamazepine (Carbamazepine 200 Mg Tablet) 600 mg PO BID [facility] Last Admin: 09/11/25 07:31 Dose: 600 mg Documented By: TOLU Diazepam (Diazepam 10 Mg/2 Ml Cartridge) 2.5 mg IVPUSH Q4H PRN PRN Reason: Seizures Duloxetine HCl (Duloxetine Hcl 20 Mg Capsule.Dr) 20 mg PO BID [facility] Last Admin: 09/11/25 07:31 Dose: 20 mg Documented By: TOLU Folic Acid (Folic Acid 1 Mg Tablet) 1 mg PO DAILY [facility] Last Admin: 09/11/25 07:30 Dose: 1 mg Documented By: TOLU Gabapentin (Gabapentin 100 Mg Capsule) 100 mg PO TID [facility] Last Admin: 09/11/25 07:31 Dose: 100 mg Documented By: TOLU Heparin Sodium (Porcine) (Heparin Sodium,Porcine 5,000 Unit/Ml Vial) 5,000 unit SUBCUT Q8H [facility] Last Admin: 09/11/25 11:58 Dose: 5,000 unit Documented By: TOLU Thiamine HCl 100 mg/ Sodium (Chloride) 101 mls @ 202 mls/hr IV DAILY [facility] Last Infusion: 09/11/25 08:01 Dose: Infused Documented By: TOLU Insulin Human Lispro (Insulin Lispro 100 Unit/Ml 3 Ml Vial) 0 unit SUBCUT QIDACHS [facility]; Protocol Last Admin: 09/11/25 11:52 Dose: 4 unit Documented By: TOLU Levetiracetam (Levetiracetam 500 Mg Tablet) 1,500 mg PO BID [facility] Last Admin: 09/11/25 07:30 Dose: 1,500 mg Documented By: TOLU Magnesium Hydroxide (Milk Of Magnesia 30 Ml Oral.Susp) 30 ml PO DAILY PRN PRN Reason: Constipation Melatonin (Melatonin 3 Mg Tablet) 6 mg PO BEDTIME PRN PRN Reason: Insomnia Last Admin: 09/07/25 22:56 Dose: 6 mg Documented By: HENRIETTA Multivitamins/Vitamin C (Multivitamin Tablet) 1 tab PO DAILY [facility] Last Admin: 09/11/25 07:53 Dose: 1 tab Documented By: TOLU Nicotine (Nicotine 21 Mg Patch.Td24) 21 mg TRANSDERMA DAILY [facility] Last Admin: 09/11/25 07:32 Dose: 21 mg Documented By: TOLU Non-Formulary Medication (Fluticasone Furoate-Vilanterol [Breo Ellipta]) 1 inhalation INHALE DAILY [facility] Ondansetron HCl (Ondansetron Hcl 4 Mg/2 Ml Vial) 4 mg IVPUSH Q8H PRN PRN Reason: Nausea and Vomiting Last Admin: 09/07/25 14:54 Dose: 4 mg Documented By: ABLREBECA Oxycodone HCl (Oxycodone Hcl Immed Release 5 Mg Tablet) 10 mg PO Q4H PRN PRN Reason: Pain, Moderate(Pain Scale 4-6) Last Admin: 09/11/25 11:59 Dose: 10 mg Documented By: TOLU Pharmacy Consult (Consult Rx Etoh Phenob Im/Po) 1 each MISCELLANE ONCE PRN; Protocol PRN Reason: Consult order Phenobarbital (Phenobarbital 15 Mg Tablet) 15 mg PO BID [facility]; Protocol Stop: 09/12/25 09:01 Last Admin: 09/11/25 07:32 Dose: 15 mg Documented By: TOLU Phenobarbital (Phenobarbital 15 Mg Tablet) 15 mg PO DAILY [facility]; Protocol Stop: 09/13/25 09:01 Phenytoin Sodium (Phenytoin Sodium Extended 100 Mg Capsule) 200 mg PO BID [facility] Last Admin: 09/11/25 07:32 Dose: 200 mg Documented By: TOLU Primidone (Primidone 50 Mg Tablet) 50 mg PO DAILY [facility] Last Admin: 09/11/25 07:32 Dose: 50 mg Documented By: TOLU Sodium Chloride (0.9 % Sodium Chloride Flush 3 Ml Syringe) 3 ml IVFLUSH QSHIFT [facility] Last Admin: 09/11/25 07:35 Dose: 3 ml Documented By: TOLU Trazodone HCl (Trazodone Hcl 25 Mg Halftab) 25 mg PO BEDTIME [facility] Last Admin: 09/10/25 20:39 Dose: 25 mg Documented By: LYSZ Labs 09/08/25 05:38 09/09/25 06:16 Labs: Laboratory Results - last 24 hr 09/07/25 09/10/25 09/10/25 00:01 16:13 20:57 POC Glucose 144 H 176 H Levetiracetam 51.0 H 09/11/25 09/11/25 08:03 11:17 POC Glucose 145 H 231 H Levetiracetam Assessment and Plan (1) Breakthrough seizure: Status: Acute (2) Alcohol withdrawal: Status: Acute Plan 60-year-old man with a history of alcohol abuse and epilepsy presenting after breakthrough seizure and alcohol withdrawal 1.Breakthrough seizure -in backdrop of alcohol withdrawal -keppra, dilantin and tegretol -Dilantin at 300 bid...will need repeat level 1 week 2.Alcohol withdrawal and abuse -CIWA protocol (0-1) -no seizures last 48 hours 3.Transaminitis -resolved -follow clinically 4.COPD -stable and well compensated 5.Right shoulder Impaction type fracture of the greater tuberosity as above.--seen by ortho -Sling for comfort- ok to perform pendulums, elbow and wrist rom, beth scap stabilization -no lifting arm away from body in ER or above shoulder height. -no lifting more than 2lbs with left arm -Follow up outpatient ortho in 4-6 weeks heparin sc Full code diet regular Requires ongoing hospitalization pending short-term bed availability Quality Stroke Does the patient have a stroke diagnosis?: No VTE Prior VTE?: No VTE Risk Level:: Medical - moderate - high VTE Device Contraindication: Treatment Not Indicated VTE Drug Contraindication: N/A - Med Ordered
[2025-09-11 15:50] VITALS: BP 139/78; PULSE 99; RESP 18; TEMP 36; O2SAT 93
[2025-09-11 16:21] LABS: Glucose, Whole Blood 155 mg/dL (60-115)
[2025-09-11 19:38] VITALS: BP 124/72; PULSE 89; RESP 18; TEMP 36.7; O2SAT 93
[2025-09-11] MEDS: traZODone HCL 25 MG HALFTAB PO (20:15)
[2025-09-11 20:44] LABS: Glucose, Whole Blood 202 mg/dL (60-115)
[2025-09-11 23:24] VITALS: BP 128/60; PULSE 86; RESP 18; TEMP 36.4; O2SAT 94
[2025-09-12 03:42] VITALS: BP 136/65; PULSE 80; RESP 18; TEMP 36.1; O2SAT 94
[2025-09-12] MEDS: oxyCODONE HCl Immed Release 5 MG TABLET 10 MG PO (04:55)
[2025-09-12 07:19] LABS: Glucose, Whole Blood 139 mg/dL (60-115)
[2025-09-12 07:49] VITALS: BP 118/71; PULSE 78; RESP 16; TEMP 36; O2SAT 92
[2025-09-12] MEDS: 0.9 % Sodium Chloride Flush 3 ML SYRINGE IVFLUSH ×3 (07:56→23:21)
[2025-09-12] MEDS: Nicotine 21 MG PATCH.TD24 TRANSDERMA (07:56)
[2025-09-12] MEDS: Thiamine HCL 100 MG in 0.9 % Sodium Chloride 100 ML 202 MG IV (07:58)
[2025-09-12 11:13] LABS: Glucose, Whole Blood 230 mg/dL (60-115)
[2025-09-12 12:00] VITALS: BP 144/75; PULSE 99; RESP 18; TEMP 36; O2SAT 92
--- NOTE | 2025-09-12 12:09 | P.PNIM_ITS ---
Subjective Subjective Date of Service: 09/12/25 Interval History: No acute issues overnight Review of Systems Denies chest pain Denies shortness of breath Denies nausea vomiting diarrhea Denies fever chills Physical Exam 2 Vital Signs: Vital Signs: Last Vital Signs Temp 96.8 F 09/12/25 07:49 Pulse 78 09/12/25 07:49 Resp 16 09/12/25 07:49 BP 118/71 09/12/25 07:49 Pulse Ox 92 09/12/25 07:49 O2 Del Method Room Air 09/12/25 07:49 BMI result Body Mass Index 40.7 Const: Other: Awake alert no acute distress Resp: Other: Clear to auscultation bilaterally no rales rhonchi or wheezes Cardio: Other: No S4; positive S1-S2; no S3 murmurs rubs or gallops GI: Other: Soft nontender nondistended normoactive bowel sounds Objective Data Active Medications Acetaminophen (Acetaminophen 325 Mg Tablet) 650 mg PO Q6H PRN PRN Reason: Pain, Mild 1-3,fever,headache Last Admin: 09/08/25 23:58 Dose: 650 mg Documented By: LEANDER Comments: per pt request Albuterol Sulfate (Albuterol Sulfate 90 Mcg 8 Gm Inhaler) 1 puff INHALE Q6H PRN PRN Reason: shortness of breath or wheezing Albuterol/Ipratropium (Albuterol/Iprat 2.5/0.5mg 3 Ml Ampul.Neb) 3 ml INHALE Q8H PRN PRN Reason: sob/nguyen Calcium Carbonate (Calcium Carbonate 750 Mg Tab.Chew) 750 mg PO Q4H PRN PRN Reason: Heartburn Carbamazepine (Carbamazepine 200 Mg Tablet) 600 mg PO BID [facility] Last Admin: 09/12/25 08:02 Dose: 600 mg Documented By: TOLU Diazepam (Diazepam 10 Mg/2 Ml Cartridge) 2.5 mg IVPUSH Q4H PRN PRN Reason: Seizures Duloxetine HCl (Duloxetine Hcl 20 Mg Capsule.) 20 mg PO BID [facility] Last Admin: 09/12/25 08:04 Dose: 20 mg Documented By: TOLU Folic Acid (Folic Acid 1 Mg Tablet) 1 mg PO DAILY [facility] Last Admin: 09/12/25 08:02 Dose: 1 mg Documented By: TOLU Gabapentin (Gabapentin 100 Mg Capsule) 100 mg PO TID [facility] Last Admin: 09/12/25 08:03 Dose: 100 mg Documented By: TOLU Heparin Sodium (Porcine) (Heparin Sodium,Porcine 5,000 Unit/Ml Vial) 5,000 unit SUBCUT Q8H [facility] Last Admin: 09/12/25 11:26 Dose: 5,000 unit Documented By: TOLU Thiamine HCl 100 mg/ Sodium (Chloride) 101 mls @ 202 mls/hr IV DAILY [facility] Last Infusion: 09/12/25 08:46 Dose: Infused Documented By: TOLU Insulin Human Lispro (Insulin Lispro 100 Unit/Ml 3 Ml Vial) 0 unit SUBCUT QIDACHS [facility]; Protocol Last Admin: 09/12/25 11:25 Dose: 4 unit Documented By: TOLU Levetiracetam (Levetiracetam 500 Mg Tablet) 1,500 mg PO BID [facility] Last Admin: 09/12/25 08:03 Dose: 1,500 mg Documented By: TOLU Magnesium Hydroxide (Milk Of Magnesia 30 Ml Oral.Susp) 30 ml PO DAILY PRN PRN Reason: Constipation Melatonin (Melatonin 3 Mg Tablet) 6 mg PO BEDTIME PRN PRN Reason: Insomnia Last Admin: 09/07/25 22:56 Dose: 6 mg Documented By: HENRIETTA Morphine Sulfate (Morphine Sulfate 4 Mg/Ml Cartridge) 4 mg IVPUSH Q4H PRN; Protocol PRN Reason: Pain, Severe (Pain Scale 7-10) Last Admin: 09/12/25 09:42 Dose: 4 mg Documented By: TOLU Multivitamins/Vitamin C (Multivitamin Tablet) 1 tab PO DAILY [facility] Last Admin: 09/12/25 08:03 Dose: 1 tab Documented By: TOLU Nicotine (Nicotine 21 Mg Patch.Td24) 21 mg TRANSDERMA DAILY [facility] Last Admin: 09/12/25 07:56 Dose: 21 mg Documented By: TOLU Non-Formulary Medication (Fluticasone Furoate-Vilanterol [Breo Ellipta]) 1 inhalation INHALE DAILY [facility] Ondansetron HCl (Ondansetron Hcl 4 Mg/2 Ml Vial) 4 mg IVPUSH Q8H PRN PRN Reason: Nausea and Vomiting Last Admin: 09/07/25 14:54 Dose: 4 mg Documented By: SIMÓN Oxycodone HCl (Oxycodone Hcl Immed Release 5 Mg Tablet) 10 mg PO Q4H PRN PRN Reason: Pain, Moderate(Pain Scale 4-6) Last Admin: 09/12/25 04:55 Dose: 10 mg Documented By: CLIFTON Pharmacy Consult (Consult Rx Etoh Phenob Im/Po) 1 each MISCELLANE ONCE PRN; Protocol PRN Reason: Consult order Phenobarbital (Phenobarbital 15 Mg Tablet) 15 mg PO DAILY [facility]; Protocol Stop: 09/14/25 09:01 Phenytoin Sodium (Phenytoin Sodium Extended 100 Mg Capsule) 200 mg PO BID [facility] Last Admin: 09/12/25 08:03 Dose: 200 mg Documented By: TOLU Primidone (Primidone 50 Mg Tablet) 50 mg PO DAILY [facility] Last Admin: 09/12/25 08:04 Dose: 50 mg Documented By: TOLU Sodium Chloride (0.9 % Sodium Chloride Flush 3 Ml Syringe) 3 ml IVFLUSH QSHIFT [facility] Last Admin: 09/12/25 07:56 Dose: 3 ml Documented By: TOLU Trazodone HCl (Trazodone Hcl 25 Mg Halftab) 25 mg PO BEDTIME [facility] Last Admin: 09/11/25 20:15 Dose: 25 mg Documented By: CLIFTON Labs 09/08/25 05:38 09/09/25 06:16 Labs: Laboratory Results - last 24 hr 09/11/25 09/11/25 09/12/25 16:17 20:39 07:15 POC Glucose 155 H 202 H 139 H 09/12/25 11:10 POC Glucose 230 H Assessment and Plan (1) Breakthrough seizure: Status: Acute (2) Alcohol withdrawal: Status: Acute Plan 60-year-old man with a history of alcohol abuse and epilepsy presenting after breakthrough seizure and alcohol withdrawal 1.Breakthrough seizure -in backdrop of alcohol withdrawal -keppra, dilantin and tegretol -Dilantin at 300 bid...will need repeat level 1 week 2.Alcohol withdrawal and abuse -CIWA protocol (0-1) -no seizures last 723 hours 3.Transaminitis -resolved -follow clinically 4.COPD -stable and well compensated 5.Right shoulder Impaction type fracture of the greater tuberosity as above.--seen by ortho -Sling for comfort- ok to perform pendulums, elbow and wrist rom, beth scap stabilization -no lifting arm away from body in ER or above shoulder height. -no lifting more than 2lbs with left arm -Follow up outpatient ortho in 4-6 weeks heparin sc Full code diet regular Requires ongoing hospitalization pending short-term bed availability Quality Stroke Does the patient have a stroke diagnosis?: No VTE Prior VTE?: No VTE Risk Level:: Medical - moderate - high VTE Device Contraindication: Treatment Not Indicated VTE Drug Contraindication: N/A - Med Ordered
[2025-09-12 15:41] VITALS: BP 134/71; PULSE 90; RESP 16; TEMP 36.1; O2SAT 93
[2025-09-12 16:33] LABS: Glucose, Whole Blood 180 mg/dL (60-115)
--- NOTE | 2025-09-12 17:52 | PC.NURSE ---
Patient refuses to wear sling,arm positioned on pillows
[2025-09-12 19:05] VITALS: BP 133/70; PULSE 87; RESP 18; TEMP 36.2; O2SAT 93
[2025-09-12 20:00] LABS: Glucose, Whole Blood 180 mg/dL (60-115)
[2025-09-12] MEDS: traZODone HCL 25 MG HALFTAB PO (20:23)
[2025-09-12 23:30] VITALS: BP 118/67; PULSE 81; RESP 16; TEMP 36.1; O2SAT 91
[2025-09-13 03:05] VITALS: BP 133/62; PULSE 86; RESP 16; TEMP 36.2; O2SAT 91
[2025-09-13] MEDS: oxyCODONE HCl Immed Release 5 MG TABLET 10 MG PO ×2 (06:46→11:38)
[2025-09-13 07:32] VITALS: BP 135/83; PULSE 74; RESP 17; TEMP 36.1; O2SAT 91
[2025-09-13 07:56] LABS: Glucose, Whole Blood 164 mg/dL (60-115)
[2025-09-13] MEDS: 0.9 % Sodium Chloride Flush 3 ML SYRINGE IVFLUSH (08:08)
[2025-09-13] MEDS: Nicotine 21 MG PATCH.TD24 TRANSDERMA (09:22)
--- NOTE | 2025-09-13 10:58 | PM.DS ---
DS: Providers Provider Date of Service: 09/13/25 Date of admission: 09/07/25 07:30 Date of discharge: 09/13/25 Primary care physician: None Physician Consults: 09/07/25 10:00 Addiction Medicine Provider Routine Consulting Provider: Addiction Covering Reason for consultation: etoh 09/07/25 10:22 Consult to Neurology Routine Consulting Provider: [facility] Reason for consultation: breakthrough seizure, medication management, ? compliance 09/07/25 14:47 Consult to Orthopedics Routine Consulting Provider[place] [facility] Reason for consultation: right arm impacted fx DS: Diagnosis Discharge Diagnosis (1) Breakthrough seizure: Status: Acute (2) Alcohol withdrawal: Status: Acute DS: Summary Hospital Course Hospital Course: 60 year old man presenting with breakthrough seizure and alcohol withdrawal. He reported that he takes his seizure medications everyday butthen stated that he may have missed some doses. He drinks a sleeve of vodka a day and is looking for detox. Apparently yesterday morning he fell and EMS was called to help him up. 30 minutes later he had a tonic clonic seizure and EMS was called again. In the ER patient had multiple imaging studies including head and cervical spine CT which were both negative. She will, wrist and elbow x-rays all negative for any acute fracture. He does have a previous humeral hea impaction and has a sling on. Patient has no fever leukocytosis. In the ER, he was started on phenobarbital IV. Given 1 g of IV Keppra, lorazepam, 1 L of IV fluid. He will be admitted for further management and treatment of breakthrough seizure and alcohol intoxication/withdrawal. Hospital Course Patient admitted to general medical floor where he did have 2 seizure episodes with a successfully treated with Valium. He was seen in consultation by Physical therapy who recommended short-term rehab. At this point in time his seizures have been well controlled and his withdrawal has resolved. He will be discharge to rehab to complete physical therapy and continue on medicines as outlined. Script for oxycodone has been sent for pain Time Attestation Discharge Coordination Time (in mins): 35 Quality: Safe Use of Opioids Does Pt have an Active Cancer Diagnosis on the Problem List?: No Quality: Stroke Does the patient have a stroke diagnosis?: No Physical Exam Vital Signs: Vital Signs: Last Vital Signs Temp 96.9 F 09/13/25 07:32 Pulse 74 09/13/25 07:32 Resp 17 09/13/25 07:32 BP 135/83 09/13/25 07:32 Pulse Ox 91 L 09/13/25 07:32 O2 Del Method Room Air 09/13/25 07:32 BMI result Body Mass Index 40.7 Const: Other: Awake alert no acute distress Resp: Other: Clear to auscultation bilaterally no rales rhonchi or wheezes Cardio: Other: No S4; positive S1-S2; no S3 murmurs rubs or gallops GI: Other: Soft nontender nondistended normoactive bowel sounds DS: Data Data Completed and Pending Completed studies during hospitalization [Text1]: Procedures Detoxification Services for Substance Abuse Treatment (07/29/25) Labs on day of discharge: Laboratory Results - last 24 hr 09/12/25 09/12/25 09/12/25 11:10 16:29 19:56 POC Glucose 230 H 180 H 180 H Phenytoin 09/13/25 09/13/25 07:39 09:46 POC Glucose 164 H Phenytoin 14.4 Discharge Plan Discharge Anticipated Discharge Date/Time: 09/13/25 10:48 Patient Disposition: Xfer SNF Discharge Diagnosis: Breakthrough seizures Referrals: Serafin Montes PA-C [Physician Metal Washing Machine Operator, Orthopedics] - 1 Week Referral Note: 10/13/25 11:00 [facility] Serafin Montes PA-C Physician,None [Primary Care Provider, Medical] - 1 Week Discharge Medications: New oxycodone 10 mg tablet 10 mg PO Q4H PRN (Reason: pain) Qty: 30 0RF Rx Instructions: Partial Fill upon patient request. insulin lispro [Admelog U-100 Insulin lispro] 100 unit/mL Solution See Protocol subcut QIDACHS Qty: 10 0RF Protocol: Insulin Correction Scale Less than or equal to 110 ---- Give (units): 0 111 to 150 Give (units): 0 151 to 200 Give (units): 2 201 to 250 Give (units): 4 251 to 300 Give (units): 6 301 to 350 Give (units): 8 Greater than 350 Give (units): 10 Call MD if Blood Glucose > : 350 phenytoin sodium extended [Dilantin Extended] 100 mg Capsule 200 mg PO BID Qty: 60 0RF Continued carbamazepine 200 mg tablet 600 mg PO BID 90 Days Qty: 540 1RF levetiracetam 750 mg tablet 1,500 mg PO BID 90 Days Qty: 360 1RF trazodone 50 mg tablet 25 mg PO BEDTIME nicotine 21 mg/24 hr Patch 24 Hour 1 patch TRANSDERMAL DAILY folic acid 1 mg Tablet 1 mg PO DAILY duloxetine 20 mg Capsule, Delayed Rel Sprinkle 20 mg PO BID primidone 50 mg tablet 50 mg PO DAILY thiamine mononitrate (vit B1) 100 mg Tablet 100 mg PO DAILY 30 Days Qty: 30 0RF gabapentin 100 mg Capsule 100 mg PO TID 30 Days Qty: 0 0RF albuterol sulfate [Ventolin HFA] 90 mcg/actuation HFA aerosol inhaler 1 inh inhalation Q6H PRN (Reason: shortness of breath or wheezing) Qty: 8.5 0RF Breo Ellipta 50-25 mcg/dose blister with device 1 inh inhalation DAILY Qty: 60 0RF naltrexone 50 mg tablet 50 mg PO DAILY Qty: 30 0RF Rx Instructions: take 1/2 tab daily for 3 days, then increase to one tab daily ipratropium-albuterol 0.5 mg-3 mg(2.5 mg base)/3 mL solution for nebulization 3 ml inhalation Q8H PRN (Reason: sob/nguyen) Qty: 180 3RF Discontinued phenytoin sodium extended 100 mg capsule 400 mg PO BID 90 Days Qty: 720 1RF prednisone 20 mg Tablet 40 mg PO DAILY 30 Days Qty: 60 0RF Discharge Orders: Discharge Order (Routine); Ordered 09/13/25 Ordered By: Joel Velasquez Diet: Advance to usual diet Activity on Discharge: As tolerated Stand Alone Forms: Patient Portal Discharge page Print Language: Barbadian Care Plan Goals: Continue all medicines as outlined on transfer sheet Health Concerns: Rehab as per receiving facility Plan of Treatment: As per receiving facility Assessment: See discharge summary
[2025-09-13 11:28] LABS: Glucose, Whole Blood 159 mg/dL (60-115)
[2025-09-13 14:00] VITALS: BP 134/83; PULSE 97; RESP 17; TEMP 36.2; O2SAT 96
== END 2025-09-13 14:09 | disposition skilled nursing facility (03) | DRG 897 ==
LOC: HO.ED 09-07 07:39 → HO.EDOVER 09-07 07:54 → HO.S3 09-07 19:10
PROVIDERS: Hospitalist; Internal Medicine; Admitting Provider Nurse Practitioner Acute Care; Emergency Provider Emergency Medicine; Visit Provider Hospitalist
DX: F10.239 Alcohol dependence with withdrawal, unspecified (principal); S42.251A Displaced fracture of greater tuberosity of right humerus, initial encounter for closed fracture; Y90.6 Blood alcohol level of 120-199 mg/100 ml; F17.210 Nicotine dependence, cigarettes, uncomplicated; J44.9 Chronic obstructive pulmonary disease, unspecified; Z23 Encounter for immunization; G40.909 Epilepsy, unspecified, not intractable, without status epilepticus; R29.6 Repeated falls; R56.9 Unspecified convulsions; T42.76XA Underdosing of unspecified antiepileptic and sedative-hypnotic drugs, initial encounter; W19.XXXA Unspecified fall, initial encounter; F10.229 Alcohol dependence with intoxication, unspecified; Z20.822 Contact with and (suspected) exposure to COVID-19; Z71.6 Tobacco abuse counseling; Z79.4 Long term (current) use of insulin; Z79.899 Other long term (current) drug therapy
CPT/HCPCS: 36415; 70450; 70553; 71045; 72125; 73030; 73080; 73110; 80048; 80053; 80177; 80185; 80307; 81001; 82010; 82803; 82947; 83735; 84439; 84443; 85025; 85027; 87502; 87635; 90656; 93005; 95816; 97162; 99285; A9585; J0131; J1644; J1953; J2060; J2270; J2405; J2560; J3411; J7120; S9485

== ENCOUNTER → 2025-09-06 23:41 | Outpatient (BNV) | payer MEDICARE, MEDICAID, SELFPAY | PROVIDERS: Emergency Provider Emergency Medicine; Visit Provider Radiology Neuroradiology | DX: R05.9 Cough, unspecified (principal) | CPT/HCPCS: 71045 ==

== ENCOUNTER → 2025-09-06 23:54 | Outpatient (BNV) | payer MEDICARE, MEDICAID, SELFPAY | PROVIDERS: Admitting Provider Nurse Practitioner Acute Care; Emergency Provider Emergency Medicine; Visit Provider Internal Medicine | DX: I45.10 Unspecified right bundle-branch block (principal) | CPT/HCPCS: 93010 ==

== ENCOUNTER → 2025-09-07 01:21 | Outpatient (BNV) | payer MEDICARE, MEDICAID, SELFPAY | PROVIDERS: Emergency Provider Emergency Medicine; Visit Provider Radiology Neuroradiology | DX: R56.9 Unspecified convulsions (principal); S42.91XA Fracture of right shoulder girdle, part unspecified, initial encounter for closed fracture; M25.531 Pain in right wrist; M25.521 Pain in right elbow; W18.30XA Fall on same level, unspecified, initial encounter | CPT/HCPCS: 70450; 72125; 73030; 73080; 73110 ==

== ENCOUNTER 2025-09-07 07:30 | Outpatient (BNV) | payer MEDICARE, MEDICAID, SELFPAY | END 2025-09-08 17:39 | PROVIDERS: Admitting Provider Nurse Practitioner Acute Care; Emergency Provider Emergency Medicine; Visit Provider Radiology Neuroradiology | DX: G40.909 Epilepsy, unspecified, not intractable, without status epilepticus (principal); R91.8 Other nonspecific abnormal finding of lung field; Z98.890 Other specified postprocedural states | CPT/HCPCS: 70553 ==

== ENCOUNTER 2025-09-07 07:30 | Outpatient (BNV) | payer MEDICARE, MEDICAID, SELFPAY | END 2025-09-08 14:00 | PROVIDERS: Admitting Provider Nurse Practitioner Acute Care; Emergency Provider Emergency Medicine; Visit Provider Psychiatry & Neurology Neurology | DX: R56.9 Unspecified convulsions (principal); F10.930 Alcohol use, unspecified with withdrawal, uncomplicated | CPT/HCPCS: 95819 ==

== ENCOUNTER → 2025-09-07 07:30 | Outpatient (BNV) | payer MEDICARE, MEDICAID, SELFPAY | PROVIDERS: Admitting Provider Nurse Practitioner Acute Care; Emergency Provider Emergency Medicine; Visit Provider Hospitalist | DX: F10.220 Alcohol dependence with intoxication, uncomplicated (principal); D32.9 Benign neoplasm of meninges, unspecified; S42.251A Displaced fracture of greater tuberosity of right humerus, initial encounter for closed fracture; G40.909 Epilepsy, unspecified, not intractable, without status epilepticus | CPT/HCPCS: 99232; 99233; 99239 ==

== ENCOUNTER → 2025-09-07 07:30 | Outpatient (BNV) | payer MEDICARE, MEDICAID, SELFPAY | PROVIDERS: Admitting Provider Nurse Practitioner Acute Care; Emergency Provider Emergency Medicine; Visit Provider Psychiatry & Neurology Neurology | DX: G40.909 Epilepsy, unspecified, not intractable, without status epilepticus (principal); D32.9 Benign neoplasm of meninges, unspecified; F10.939 Alcohol use, unspecified with withdrawal, unspecified; R56.9 Unspecified convulsions; G40.919 Epilepsy, unspecified, intractable, without status epilepticus | CPT/HCPCS: 99222 ==

== ENCOUNTER → 2025-09-07 07:30 | Outpatient (BNV) | payer MEDICARE, MEDICAID, SELFPAY | PROVIDERS: Admitting Provider Nurse Practitioner Acute Care; Emergency Provider Emergency Medicine; Visit Provider Nurse Practitioner Psychiatric/Mental Health | DX: F10.939 Alcohol use, unspecified with withdrawal, unspecified (principal) | CPT/HCPCS: 99222; 99232 ==

== ENCOUNTER → 2025-09-07 07:30 | Outpatient (BNV) | payer MEDICARE, MEDICAID, SELFPAY | PROVIDERS: Admitting Provider Nurse Practitioner Acute Care; Emergency Provider Emergency Medicine; Visit Provider Physician Assistant | DX: S42.251A Displaced fracture of greater tuberosity of right humerus, initial encounter for closed fracture (principal) | CPT/HCPCS: 99222 ==

== ENCOUNTER 2025-10-13 10:34 | Outpatient (REF) | payer MEDICARE, MEDICAID, SELFPAY ==
--- NOTE | ~2025-10-13 | XR_ITS ---
EXAMINATION: XR SHOULDER, RIGHT CLINICAL INFORMATION: M25.511 - Pain in right shoulder COMPARISON: X-ray 09/07/2025 TECHNIQUE: Two views of the right shoulder. FINDINGS: Redemonstrated mild impaction fracture greater tuberosity, stable position and alignment. Suspected mild callus formation. No new acute fractures seen. Glenohumeral articulation is maintained. Acromioclavicular articulation is maintained. XR/XR shoulder RT min 2V IMPRESSION: Stable alignment of the impaction fracture of the humeral greater tuberosity. Mild healing changes. Electronically signed by: Teddy Matute MD 10/13/2025 03:20 PM [facility]
== END 2025-10-13 10:35 | disposition home or self-care (01) ==
LOC: HO.HOSX 10:34
PROVIDERS: Visit Provider Physician Assistant
DX: S42.251D Displaced fracture of greater tuberosity of right humerus, subsequent encounter for fracture with routine healing (principal)
CPT/HCPCS: 73030

== ENCOUNTER 2025-10-13 10:54 | Outpatient (AMB) | payer MEDICARE, MEDICAID, SELFPAY ==
--- NOTE | 2025-10-13 11:00 | A.OFFVIS_ITS ---
Vital Signs 10/13/25 11:16 Height 5 ft 10 in Weight 262 lb BMI 37.6 Intake Visit Reasons: ov- right greater tuberosity fx Intake Note: Cortez is a 60 year old male who presents today for an ER follow up of right greater tuberosity fracture. Patient was [place] [facility] [place] he sustained an unwitnessed fall after a seizure that occurred at home. X-rays were obtained and he was placed in a sling, referred to orthopedics. Today patient reports that he continues to use oxycodone however this is not helping with his pain. States discomfort while trying to sleep. He has not been using the sling as instructed as this has been causing pain and swelling in his neck. Pharmaceutical Sales Representative Required: No Allergies No Known Allergies Allergy (Verified 10/13/25 11:17) Medication List - Last Reconciled 10/13/25 by Serafin Montes PA-C albuterol sulfate 90 mcg/actuation (Ventolin HFA) 1 inh inhalation Q6H PRN carbamazepine 600 mg (3 x 200 mg) PO BID 90 days duloxetine 20 mg PO BID fluticasone furoate-vilanterol 50-25 mcg/dose (Breo Ellipta) 1 inh inhalation DAILY folic acid 1 mg PO DAILY gabapentin 100 mg PO TID 30 days insulin lispro (Admelog U-100 Insulin lispro) See Protocol units subcut QIDACHS ipratropium-albuterol 0.5 mg-3 mg(2.5 mg base)/3 mL 3 mL inhalation Q8H PRN levetiracetam 1,500 mg (2 x 750 mg) PO BID 90 days naltrexone 50 mg PO DAILY nicotine 1 patch transdermal DAILY oxycodone 10 mg PO Q4H PRN oxycodone 10 mg PO Q6H PRN phenytoin sodium extended (Dilantin Extended) 200 mg (2 x 100 mg) PO BID primidone 50 mg PO DAILY thiamine mononitrate (vit B1) 100 mg PO DAILY 30 days trazodone 25 mg PO BEDTIME HPI HPI ov- right greater tuberosity fx: Details: 60-year-old gentleman presents to the office today for an injury he sustained to his right shoulder on or around 09/07/2025. I had seen him in the hospital for consultation of the right shoulder and he was found to have a right greater tuberosity fracture which was nondisplaced. He was placed in a sling and recommended to follow up in 4-6 weeks. Today he complains of pain in the right shoulder but also swelling in the right elbow and discomfort in the right trapezium and neck region. He has discontinued the use of his sling. He complains of pain and states the rehab facility is not providing him with adequate pain control. He does have a significant history for alcohol abuse. [facility] Medical History Fracture of greater tuberosity of right humerus Alcohol use disorder Alcohol dependence Meningioma DVT (deep venous thrombosis) Major depressive disorder Epilepsy Alcohol abuse Social History Household Members: Friend(s) Housing: Other Housing Other:: trailer Do you presently have visiting nurse or other home services: No Alcohol intake: current Alcohol intake frequency: 3 or more drinks per day Alcohol type: hard liquor Patient Tobacco Use Status: Current everyday Tobacco user Tobacco use type: Cigarette Cigarette Packs Per Day: 1.5 Cigarettes Per Day: 30.0 e-Cigarette/Vaping Use: Never Used Second Hand Smoke Exposure: No Advance Directives Date on File: 12/29/24 service: No Review of Systems Const All systems reviewed & are unremarkable except as noted in HPI and below Physical Exam Vital Signs: BMI result Body Mass Index 37.6 Const General: cooperative and no acute distress Orientation/consciousness: patient oriented x3 Resp Effort & Inspection: normal respiratory effort and able to speak in complete sentences Cardio Peripheral pulses: Peripheral pulses 2+ throughout Neuro General: patient oriented x3 Extrem Other: Right shoulder is normal to inspection with tenderness over the greater tuberosity. He does have tenderness over the right trapezium which extends into the right side of the neck. Right elbow olecranon bursitis present without signs of infection. He can perform full range of motion of the elbow without pain. Neurovascularly intact. Results Reviewed Results Reviewed: X-rays of the right shoulder obtained in the office today which show a stable greater tuberosity fracture with interval healing. Assessment & Plan Assessment & Plan (1) Fracture of greater tuberosity of right humerus: Code(s): S42.251A - Displaced fracture of greater tuberosity of right humerus, initial encounter for closed fracture Category: Medical Qualifiers: Encounter type: subsequent encounter Fracture type: closed Fracture alignment: nondisplaced Fracture healing: with routine healing Qualified Code(s): S42.254D - Nondisplaced fracture of greater tuberosity of right humerus, subsequent encounter for fracture with routine healing Plan: He can discontinue the use of the sling and begin working with PT and OT for scapular stabilization and active assisted to active range of motion exercises. He will avoid any type of lifting pushing pulling or carrying with the right upper extremity. I gave him an Hector wrap for his elbow to help with compression of his bursitis. He was looking for an increase in pain medication which I advised against and recommended he add Tylenol and Celebrex to his current pain regimen. I will see him back in 6-8 weeks with x-rays of the right shoulder, sooner if needed. Orders: Orders XR shoulder RT min 2V Today M25.511 - Pain in right shoulder Coding Level of Care Code Global (51851) Diagnoses Closed nondisplaced fracture of greater tuberosity of right humerus with routine healing, subsequent encounter S42.254D Encounter type: subsequent encounter Fracture type: closed Fracture alignment: nondisplaced Fracture healing: with routine healing
[2025-10-13 11:16] VITALS: BMI 37.6
--- OUTSIDE RECORDS SUMMARY | 2025-10-13 12:48 | XMS_ITS | Encounter Summary ---
Author Organization [facility] Address [address] [place] [address] Care Team Providers Care Pickle Solution Maker Name Role Phone Physician, No Pcp Primary Care Provider Unavaila ble Encounter Details Date Type Department Care Team (Late st Contact Info) Description 02/26/2025 Lab Requisition [facility] - Main Lab [address] [facility] [place] [address] Ailyn Stringer MD [address] [phone] Other seizures (CMS/HCC V24, CMS/HCC V28) Social [...] LAB CHEMISTRY METHOD 02/26/2025 10:20 AM EDT [facility] Blood Venous blood specimen / Unknown Venipuncture / Unknown 02/26/2025 5:06 AM EDT 02/26/2025 9:26 AM EDT us Ailyn Stringer MD LAB BLOOD ORDERABLES Fin al Result [facility] [address] [place] [address], documented in this encounter Visit Diagnoses Diagnosis Other seizures (CMS/HCC V24, CMS/HCC V28) documented in this encounter Care Teams Pickle Solution Maker Relationship Specialty Start Date End Date Physician, No Pcp PCP - General 11/05/24 documented as of this encounter
--- OUTSIDE RECORDS SUMMARY | 2025-10-13 12:48 | XMS_ITS | Encounter Summary ---
Author Organization [facility] Address [address] [place] [address] Care Team Providers Care Near Eastern Archaeology Lecturer Name Role Phone Physician, No Pcp Primary Care Provider Unavaila ble Encounter Details Date Type Department Care Team (Late st Contact Info) Description 02/13/2025 Lab Requisition [facility] - Main Lab [address] [facility] [place] [address] Ailyn Stringer MD [address] [phone] Malignant neoplasm of brain, unspecified (CMS/HCC V24, [...] mmol/L LAB CHEMISTRY METHOD 02/15/2025 1:08 PM [facility] Potassium 3.9 3.5 - 5.5 mmol/L LAB CHEMISTRY METHOD 02/15/2025 1:08 PM [facility] Chloride 107 96 - 110 mmol/L LAB CHEMISTRY METHOD 02/15/2025 1:08 PM [facility] CO2 22 21 - 32 mmol/L LAB CHEMISTRY METHOD 02/15/2025 1:08 PM [facility] Anion Gap 9 3 - 11 LAB CHEMISTRY METHOD 02/15/2025 1:08 PM [facility] Glucose 291(H) 70 - 100 mg/dL LAB CHEMISTRY METHOD 02/15/2025 1:08 PM [facility] BUN 19 5 - 25 mg/dL LAB CHEMISTRY METHOD 02/15/2025 1:08 PM [facility] Creatinine 0.70 0.70 - 1.30 mg/dL LAB CHEMISTRY METHOD 02/15/2025 1:08 PM [facility] eGFR 106 >=60 mL/min/1. 73m2 LAB CHEMISTRY METHOD 02/15/2025 1:08 PM [facility] Comment:Calculation based on the Chronic Kidney Disease Epidemiology Collaboration (CKD-EPI) equation refit without adjustment for race. BUN/Creatinine Ratio 27.1 LAB CHEMISTRY METHOD 02/15/2025 1:08 PM [facility] Calcium 9.0 8.5 - 10.5 mg/dL LAB CHEMISTRY METHOD 02/15/2025 1:08 PM [facility] AST (SGOT) 10 10 - 42 unit/L LAB CHEMISTRY METHOD 02/15/2025 1:08 PM [facility] ALT (SGPT) 35 10 - 60 unit/L LAB CHEMISTRY METHOD 02/15/2025 1:08 PM [facility] Alkaline Phosphatase 163(H) 42 - 121 unit/L LAB CHEMISTRY METHOD 02/15/2025 1:08 PM [facility] Total Protein 6.7 6.0 - 8.0 g/dL LAB CHEMISTRY METHOD 02/15/2025 1:08 PM [facility] Albumin 3.3 3.2 - 5.0 g/dL LAB CHEMISTRY METHOD 02/15/2025 1:08 PM [facility] Total Bilirubin 0.2 0.0 - 1.4 mg/dL LAB CHEMISTRY METHOD 02/15/2025 1:08 PM [facility] Blood Venous blood specimen / Unknown Venipuncture / Unknown 02/15/2025 7:42 AM EDT 02/15/2025 10:14 AM EDT us Ailyn Stringer MD LAB BLOOD ORDERABLES Fin al Result [facility] [address] [place] [address], * (ABNORMAL) Complete blood count (02/15/2025 7:42 AM EDT) WBC 8.8 4.8 - 10.8 K/mcL LAB HEMETOLOGY METHOD 02/15/2025 11:41 AM EDT [facility] RBC 4.60 4.50 - 5.50 M/[facility] LAB HEMETOLOGY METHOD 02/15/2025 11:41 AM EDT [facility] Hemoglobin 14.8 13.5 - 17.5 g/dL LAB HEMETOLOGY METHOD 02/15/2025 11:41 AM [facility] Hematocrit 43.1 42.0 - 54.0 % LAB [facility]EM[facility]OLOGY [facility] MCV 93.7 79.0 - 98.0 [place] LAB H[facility]OLOGY METHOD [facility] MCH 32.2(H) 27.0 - 32.0 pcg LAB HEMETOLOGY METHOD 02/15/2025 11:41 AM [facility] MCHC 34.3 32.0 - 37.0 g/dL LAB HEMETOLOGY METHOD 02/15/2025 11:41 AM EDT [facility] RDW 12.5 11.0 - 15.0 % LAB HEMETOLOGY METHOD [facility] Platelets 268 130 - 400 K/mcL LAB HEMETOLOGY METHOD 02/15/2025 11:41 AM [facility] MPV 11.3(H) 7.0 - 11.0 FL LAB HEMETOLOGY METHOD 02/15/2025 11:41 AM EDT [facility] NRBC 0.0 <1.0 % LAB HEMETOLOGY METHOD 02/15/2025 11:41 AM EDT [facility] NRBC Absolute 0.00 <0.10 K/mcL LAB HEMETOLOGY METHOD 02/15/2025 11:41 AM EDT [facility] Blood Venous blood specimen / Unknown Venipuncture / Unknown 02/15/2025 7:42 AM EDT 02/15/2025 10:14 AM EDT us Ailyn Stringer MD LAB BLOOD ORDERABLES Fin al Result [facility] [address] [place] [address], documented in this encounter Visit Diagnoses Diagnosis Malignant neoplasm of brain, unspecified (CMS/HCC V24, CMS/HCC V28) documented in this encounter Care Teams Near Eastern Archaeology Lecturer Relationship Specialty Start Date End Date Physician, No Pcp PCP - General 11/05/24 documented as of this encounter
--- OUTSIDE RECORDS SUMMARY | 2025-10-13 12:48 | XMS_ITS | Encounter Summary ---
Author Organization [facility] Address [address] [place] [address] Care Team Providers Care Senior Project Manager Engineering Name Role Phone Physician, No Pcp Primary Care Provider Unavaila ble Encounter Details Date Type Department Care Team (Late st Contact Info) Description 02/16/2025 Lab Requisition [facility] - Main Lab 299 [facility] [place] [address] Ailyn Stringer MD [address] [phone] Unspecified convulsions (CMS/HCC V24, CMS/HCC V28); Epilepsy, unspecified, not intractable, with status epilepticus (CMS/HCC V24, CMS/HCC V28); Other fci (current) drug therapy Social History Tobacco Use [...] Assessment Author No 11/06/2024 6:22 AM Jigna Jennings RN * Are you blind or do [...] unspecified, not intractable, with status epilepticus Other terminal makeup operator (current) drug therapy HEMOGLOBIN A1C Routine 02/16/2025 5:29 AM EDT Unspecified convulsions (CMS/HCC) Epilepsy, unspecified, not intractable, with status epilepticus Other fci (current) drug therapy BASIC METABOLIC PANEL Routine 02/16/2025 5:29 AM EDT Unspecified convulsions (CMS/HCC) Epilepsy, unspecified, not intractable, with status epilepticus Other terminal makeup operator (current) drug therapy documented in this encounter Results * (ABNORMAL) Hemoglobin A1c (02/16/2025 5:29 AM EDT) Hemoglobin A1C 9.0(H) <6.5 % LAB CHEMISTRY METHOD 02/16/2025 1:58 PM EDT [facility] Mean Bld Glu Estim. 212 mg/dL LAB CHEMISTRY METHOD 02/16/2025 1:58 PM EDT [facility] Blood Venous blood specimen / Unknown Venipuncture / Unknown 02/16/2025 5:29 AM EDT 02/16/2025 8:08 AM EDT us Ailyn Stringer MD LAB BLOOD ORDERABLES Fin al Result [facility] [address] [place] [address], [place] [phone] * (ABNORMAL) Basic metabolic panel (02/16/2025 5:29 AM EDT) Sodium 135 133 - 145 mmol/L LAB CHEMISTRY METHOD 02/16/2025 9:[address] [facility] Potassium 4.1 3.5 - 5.5 mmol/L LAB CHEMISTRY METHOD 02/16/2025 9:[address] [facility] Chloride 102 96 - 110 mmol/L LAB CHEMISTRY METHOD 02/16/2025 9:[address] [facility] CO2 27 21 - 32 mmol/L LAB CHEMISTRY METHOD 02/16/2025 9:[address] [facility] Anion Gap 6 3 - 11 LAB CHEMISTRY METHOD 02/16/2025 9:[address] [facility] Glucose 316(H) 70 - 100 mg/dL LAB CHEMISTRY METHOD 02/16/2025 9:[address] [facility] BUN 14 5 - 25 mg/dL LAB CHEMISTRY METHOD 02/16/2025 9:[address] [facility] Creatinine 0.72 0.70 - 1.30 mg/dL LAB CHEMISTRY METHOD 02/16/2025 9:[address] [facility] eGFR 105 >=60 mL/min/1. 73m2 LAB CHEMISTRY METHOD 02/16/2025 9:[address] [facility] Comment:Calculation based on the Chronic Kidney Disease Epidemiology Collaboration (CKD-EPI) equation refit without adjustment for race. BUN/Creatinine Ratio 19.4 LAB CHEMISTRY METHOD 02/16/2025 9:[address] [facility] Calcium 9.2 8.5 - 10.5 mg/dL LAB CHEMISTRY METHOD 02/16/2025 9:13 AM EDT [facility] Blood Venous blood specimen / Unknown Venipuncture / Unknown 02/16/2025 5:29 AM EDT 02/16/2025 8:08 AM EDT us Ailyn Stringer MD LAB BLOOD ORDERABLES Fin al Result [facility] [address] [place] [address], * (ABNORMAL) Complete blood count (02/16/2025 5:29 AM EDT) WBC 8.4 4.8 - 10.8 K/mcL LAB HEMETOLOGY METHOD 02/16/2025 8:[address] [facility] RBC 4.80 4.50 - 5.50 [facility] LAB HEMETOLOGY METHOD 02/16/2025 8:[address] [facility] Hemoglobin 15.5 13.5 - 17.5 g/dL LAB HEMETOLOGY METHOD 02/16/2025 8:[address] [facility] Hematocrit 45.8 42.0 - 54.0 % LAB HEMETOLOGY METHOD 02/16/2025 8:[address] [facility] MCV 95.2 79.0 - 98.0 FL LAB HEMETOLOGY METHOD 02/16/2025 8:[address] [facility] MCH 32.2(H) 27.0 - 32.0 pcg LAB HEMETOLOGY METHOD 02/16/2025 8:[address] [facility] MCHC 33.8 32.0 - 37.0 g/dL LAB HEMETOLOGY METHOD 02/16/2025 8:[address] [facility] RDW 12.3 11.0 - 15.0 % LAB HEMETOLOGY METHOD 02/16/2025 8:52 AM EDT [facility] Platelets 270 130 - 400 K/mcL LAB HEMETOLOGY METHOD 02/16/2025 8:52 AM EDT [facility] MPV 11.5(H) 7.0 - 11.0 FL LAB HEMETOLOGY METHOD 02/16/2025 8:52 AM EDT [facility] NRBC 0.0 <1.0 % LAB HEMETOLOGY METHOD 02/16/2025 8:52 AM EDT [facility] NRBC Absolute 0.00 <0.10 K/mcL LAB HEMETOLOGY METHOD 02/16/2025 8:52 AM EDT [facility] Blood Venous blood specimen / Unknown Venipuncture / Unknown 02/16/2025 5:29 AM EDT 02/16/2025 8:08 AM EDT us Ailyn Stringer MD LAB BLOOD ORDERABLES Fin al Result [facility] [address] [place] [address], documented in this encounter Visit Diagnoses Diagnosis Unspecified convulsions (CMS/HCC V24, CMS/HCC V28) Epilepsy, unspecified, not intractable, with status epilepticus (CMS/HCC V24, CMS/HCC V28) Other fci (current) drug therapy documented in this encounter Care Teams Senior Project Manager Engineering Relationship Specialty Start Date End Date Physician, No Pcp PCP - General 11/05/24 documented as of this encounter
--- OUTSIDE RECORDS SUMMARY | 2025-10-13 12:49 | XMS_ITS | Encounter Summary ---
Author Organization [facility] Address [address] [place] [address] Care Team Providers Care Cell Cleaner Name Role Phone Physician, No Pcp Primary Care Provider Unavaila ble Encounter Details Date Type Department Care Team (Late st Contact Info) Description 02/07/[address] [facility] - Main Lab 299 [facility] [place] [address] Ailyn Stringer MD [address] [phone] Malignant neoplasm of brain, unspecified (CMS/HCC V24, [...] documented in this encounter Care Teams Cell Cleaner Relationship Specialty Start Date End Date Physician, No Pcp PCP - General 11/05/24 documented as of this encounter
--- OUTSIDE RECORDS SUMMARY | 2025-10-13 12:49 | XMS_ITS | Encounter Summary ---
Author Organization [facility] Address [address] [place] [address] Care Team Providers Care Hot Header Operator Name Role Phone Physician, No Pcp Primary Care Provider Unavaila ble Encounter Details Date Type Department Care Team (Late st Contact Info) Description 01/09/2025 Lab Requisition [facility] - Main Lab 299 [facility] [place] [address] Ailyn Stringer MD [address] [phone] Encounter for therapeutic drug level monitoring Social [...] LAB CHEMISTRY METHOD 01/10/2025 10:10 AM EST [facility] Blood Venous blood specimen / Unknown Venipuncture / Unknown 01/10/2025 8:15 AM EST 01/10/2025 9:11 AM EST us Ailyn Stringer MD LAB BLOOD ORDERABLES Fin al Result [facility] [address] [place] [address], documented in this encounter Visit Diagnoses Diagnosis Encounter for therapeutic drug level monitoring documented in this encounter Care Teams Hot Header Operator Relationship Specialty Start Date End Date Physician, No Pcp PCP - General 11/05/24 documented as of this encounter
--- OUTSIDE RECORDS SUMMARY | 2025-10-13 12:49 | XMS_ITS | Encounter Summary ---
Author Organization [facility] Address [address] [place] [address] Care Team Providers Care Skating Rink Ice Maker Name Role Phone Physician, No Pcp Primary Care Provider Unavaila ble Encounter Details Date Type Department Care Team (Late st Contact Info) Description 01/07/[address] [facility] - Main Lab 299 [facility] [place] [address] Ailyn Stringer MD [address] [phone] Encounter for therapeutic drug level monitoring Social [...] LAB CHEMISTRY METHOD 01/08/2025 11:56 AM EST [facility] Blood Venous blood specimen / Unknown Venipuncture / Unknown 01/08/2025 5:42 AM EST 01/08/2025 10:11 AM EST us Ailyn Stringer MD LAB BLOOD ORDERABLES Fin al Result [facility] [address] [place] [address], documented in this encounter Visit Diagnoses Diagnosis Encounter for therapeutic drug level monitoring documented in this encounter Care Teams Skating Rink Ice Maker Relationship Specialty Start Date End Date Physician, No Pcp PCP - General 11/05/24 documented as of this encounter
--- OUTSIDE RECORDS SUMMARY | 2025-10-13 12:49 | XMS_ITS | Encounter Summary ---
Author Organization [facility] Address [address] [place] [address] Care Team Providers Care Electroencephalogram Technologist Name Role Phone Physician, No Pcp Primary Care Provider Unavaila ble Encounter Details Date Type Department Care Team (Late st Contact Info) Description 11/12/2024 Lab Requisition [facility] - Main Lab 299 [facility] [place] [address] Ailyn Stringer MD [address] [phone] Other seizures (CMS/HCC V24, CMS/HCC V28) Social [...] Routine 11/12/2024 4:48 AM EST Other seizures ([facility]/HCC) documented in this encounter Results * (ABNORMAL) Comprehensive metabolic panel (11/12/2024 4:48 AM EST) Sodium 139 133 - 145 mmol/L LAB CHEMISTRY METHOD 11/12/2024 11:09 AM [facility] Potassium 4.2 3.5 - 5.5 mmol/L LAB CHEMISTRY METHOD 11/12/2024 11:09 AM [facility] Chloride 108 96 - 110 mmol/L LAB CHEMISTRY METHOD 11/12/2024 11:09 AM [facility] CO2 28 21 - 32 mmol/L LAB CHEMISTRY METHOD 11/12/2024 11:09 AM [facility] Anion Gap 3 3 - 11 LAB CHEMISTRY METHOD 11/12/2024 11:09 AM [facility] Glucose 82 70 - 100 mg/dL LAB CHEMISTRY METHOD 11/12/2024 11:09 AM [facility] BUN 14 5 - 25 mg/dL LAB CHEMISTRY METHOD 11/12/2024 11:09 AM [facility] Creatinine 0.76 0.70 - 1.30 mg/dL LAB CHEMISTRY METHOD 11/12/2024 11:09 AM [facility] eGFR 104 >=60 mL/min/1. 73m2 LAB CHEMISTRY METHOD 11/12/2024 11:09 AM [facility] Comment:Calculation based on the Chronic Kidney Disease Epidemiology Collaboration (CKD-EPI) equation refit without adjustment for race. BUN/Creatinine Ratio 18.4 LAB CHEMISTRY METHOD 11/12/2024 11:09 AM [facility] Calcium 8.2(L) 8.5 - 10.5 mg/dL LAB CHEMISTRY METHOD 11/12/2024 11:09 AM [facility] AST (SGOT) 33 10 - 42 unit/L LAB CHEMISTRY METHOD 11/12/2024 11:09 AM [facility] ALT (SGPT) 68(H) 10 - 60 unit/L LAB CHEMISTRY METHOD 11/12/2024 11:09 AM [facility] Alkaline Phosphatase 108 42 - 121 unit/L LAB CHEMISTRY METHOD 11/12/2024 11:09 AM [facility] Total Protein 6.0 6.0 - 8.0 g/dL LAB CHEMISTRY METHOD 11/12/2024 11:09 AM [facility] Albumin 3.2 3.2 - 5.0 g/dL LAB CHEMISTRY METHOD 11/12/2024 11:09 AM [facility] Total Bilirubin 0.2 0.0 - 1.4 mg/dL LAB CHEMISTRY METHOD 11/12/2024 11:09 AM [facility] Blood Venous blood specimen / Unknown Venipuncture / Unknown 11/12/2024 4:48 AM EST 11/12/2024 10:06 AM EST us Ailyn Stringer MD LAB BLOOD ORDERABLES Fin al Result [facility] [address] [place] [address], * (ABNORMAL) Complete blood count (11/12/2024 4:48 AM EST) [facility] WBC 6.8 4.8 - 10.8 K/mcL LAB HEMETOLOGY METHOD 11/12/2024 10:28 AM [facility] RBC 4.00(L) 4.50 - 5.50 M/mcL LAB HEMETOLOGY METHOD 11/12/2024 10:28 AM [facility] Hemoglobin 12.9(L) 13.5 - 17.5 g/dL LAB HEMETOLOGY METHOD 11/12/2024 10:28 AM [facility] Hematocrit 39.0(L) 42.0 - 54.0 % LAB HEMETOLOGY METHOD 11/12/2024 10:28 AM [facility] MCV 98.5(H) 79.0 - 98.0 FL LAB HEMETOLOGY METHOD 11/12/2024 10:28 AM [facility] MCH 32.6(H) 27.0 - 32.0 pcg LAB HEMETOLOGY METHOD 11/12/2024 10:28 AM [facility] MCHC 33.1 32.0 - 37.0 g/dL LAB HEMETOLOGY METHOD 11/12/2024 10:28 AM [facility] RDW 13.2 11.0 - 15.0 % LAB HEMETOLOGY METHOD 11/12/2024 10:28 AM [facility] Platelets 234 130 - 400 K/mcL LAB HEMETOLOGY METHOD 11/12/2024 10:28 AM [facility] MPV 11.0 7.0 - 11.0 FL LAB HEMETOLOGY METHOD 11/12/2024 10:28 AM [facility] NRBC 0.0 <1.0 % LAB HEMETOLOGY METHOD 11/12/2024 10:28 AM [facility] NRBC Absolute 0.00 <0.10 K/mcL LAB HEMETOLOGY METHOD 11/12/2024 10:28 AM EST [facility] Blood Venous blood specimen / Unknown Venipuncture / Unknown 11/12/2024 4:48 AM EST 11/12/2024 10:06 AM EST us Ailyn Stringer MD LAB BLOOD ORDERABLES Fin al Result [facility] [address] [place] [address], documented in this encounter Visit Diagnoses Diagnosis Other seizures (CMS/HCC V24, CMS/HCC V28) documented in this encounter Care Teams Electroencephalogram Technologist Relationship Specialty Start Date End Date Physician, No Pcp PCP - General 11/05/24 documented as of this encounter
--- OUTSIDE RECORDS SUMMARY | 2025-10-13 12:49 | XMS_ITS | Encounter Summary ---
Author Organization [facility] Address [address] [place] [address] Care Team Providers Care Jigsaw Operator Name Role Phone Physician, No Pcp Primary Care Provider Unavaila ble Encounter Details Date Type Department Care Team (Late st Contact Info) Description 04/30/2025 Lab Requisition [facility] - Main Lab 299 [facility] [place] [address] Ailyn Stringer MD [address] [phone] Malignant neoplasm of brain, unspecified (CMS/HCC V24, [...] brain, unspecified ([facility]/HCC V24, [facility] V28) COMPREHENSIVE METABOLIC PANEL Routine 05/03/2025 5:55 AM EDT Malignant neoplasm of brain, unspecified ([facility]/HCC V24, CMS/HCC V28) documented in this encounter Results * (ABNORMAL) Comprehensive metabolic panel (05/03/2025 5:55 AM EDT) Sodium 141 133 - 145 mmol/L LAB CHEMISTRY METHOD 05/03/2025 1:32 PM [facility] Potassium 3.8 3.5 - 5.5 mmol/L LAB CHEMISTRY METHOD 05/03/2025 1:32 PM [facility] Chloride 105 96 - 110 mmol/L LAB CHEMISTRY METHOD 05/03/2025 1:32 PM [facility] CO2 25 21 - 32 mmol/L LAB CHEMISTRY METHOD 05/03/2025 1:32 PM [facility] Anion Gap 11 3 - 11 LAB CHEMISTRY METHOD 05/03/2025 1:32 PM [facility] Glucose 118(H) 70 - 100 mg/dL LAB CHEMISTRY METHOD 05/03/2025 1:32 PM [facility] BUN 14 5 - 25 mg/dL LAB CHEMISTRY METHOD 05/03/2025 1:32 PM [facility] Creatinine 0.74 0.70 - 1.30 mg/dL LAB CHEMISTRY METHOD 05/03/2025 1:32 PM [facility] eGFR 104 >=60 mL/min/1. 73m2 LAB CHEMISTRY METHOD 05/03/2025 1:32 PM [facility] Comment:Calculation based on the Chronic Kidney Disease Epidemiology Collaboration (CKD-EPI) equation refit without adjustment for race. BUN/Creatinine Ratio 18.9 LAB CHEMISTRY METHOD 05/03/2025 1:32 PM [facility] Calcium 8.9 8.5 - 10.5 mg/dL LAB CHEMISTRY METHOD 05/03/2025 1:32 PM [facility] AST (SGOT) 23 10 - 42 unit/L LAB CHEMISTRY METHOD 05/03/2025 1:32 PM [facility] ALT (SGPT) 51 10 - 60 unit/L LAB CHEMISTRY METHOD 05/03/2025 1:32 PM [facility] Alkaline Phosphatase 165(H) 42 - 121 unit/L LAB CHEMISTRY METHOD 05/03/2025 1:32 PM [facility] Total Protein 6.7 6.0 - 8.0 g/dL LAB CHEMISTRY METHOD 05/03/2025 1:32 PM [facility] Albumin 3.3 3.2 - 5.0 g/dL LAB CHEMISTRY METHOD 05/03/2025 1:32 PM [facility] Total Bilirubin 0.3 0.0 - 1.4 mg/dL LAB CHEMISTRY METHOD 05/03/2025 1:32 PM [facility] Blood Venous blood specimen / Unknown Venipuncture / Unknown 05/03/2025 5:55 AM EDT 05/03/2025 11:29 AM EDT us Ailyn Stringer MD LAB BLOOD ORDERABLES Fin al Result [facility] [address] [place] [address], * Complete blood count (05/03/2025 5:55 AM EDT) Pathologist [facility] WBC 6.7 4.8 - 10.8 K/mcL LAB HEMETOLOGY METHOD 05/03/2025 12:24 PM EDT [facility] RBC 4.90 4.50 - 5.50 M/mcL LAB HEMETOLOGY METHOD 05/03/2025 12:24 PM EDT [facility] Hemoglobin 14.9 13.5 - 17.5 g/dL LAB HEMETOLOGY METHOD 05/03/2025 12:24 PM EDT [facility] Hematocrit 45.4 42.0 - 54.0 % LAB HEMETOLOGY METHOD 05/03/2025 12:24 PM EDT [facility] MCV 92.8 79.0 - 98.0 FL LAB HEMETOLOGY METHOD 05/03/2025 12:24 PM EDT [facility] MCH 30.5 27.0 - 32.0 pcg LAB HEMETOLOGY METHOD 05/03/2025 12:24 PM EDT [facility] MCHC 32.8 32.0 - 37.0 g/dL LAB HEMETOLOGY METHOD 05/03/2025 12:24 PM EDT [facility] RDW 13.2 11.0 - 15.0 % LAB HEMETOLOGY METHOD 05/03/2025 12:24 PM EDT [facility] Platelets 282 130 - 400 K/mcL LAB HEMETOLOGY METHOD 05/03/2025 12:24 PM EDT [facility] MPV 10.9 7.0 - 11.0 FL LAB HEMETOLOGY METHOD 05/03/2025 12:24 PM EDT [facility] NRBC 0.0 <1.0 % LAB HEMETOLOGY METHOD 05/03/2025 12:24 PM EDT [facility] NRBC Absolute 0.00 <0.10 K/mcL LAB HEMETOLOGY METHOD 05/03/2025 12:24 PM EDT [facility] Blood Venous blood specimen / Unknown Venipuncture / Unknown 05/03/2025 5:55 AM EDT 05/03/2025 11:29 AM EDT us Ailyn Stringer MD LAB BLOOD ORDERABLES Fin al Result [facility] [address] [place] [address], documented in this encounter Visit Diagnoses Diagnosis Malignant neoplasm of brain, unspecified (CMS/HCC V24, CMS/HCC V28) documented in this encounter Care Teams Jigsaw Operator Relationship Specialty Start Date End Date Physician, No Pcp PCP - General 11/05/24 documented as of this encounter
--- OUTSIDE RECORDS SUMMARY | 2025-10-13 12:49 | XMS_ITS | Encounter Summary ---
Author Organization [facility] Address [address] [place] [address] Care Team Providers Care Applications Processor Name Role Phone Physician, No Pcp Primary Care Provider Unavaila ble Encounter Details Date Type Department Care Team (Late st Contact Info) Description 02/08/2025 Lab Requisition [facility] - Main Lab 299 [facility] [place] [address] Ailyn Stringer MD [address] [phone] Malignant neoplasm of brain, unspecified (CMS/HCC V24, [...] mmol/L LAB CHEMISTRY METHOD 02/09/2025 10:28 AM [facility] Potassium 4.3 3.5 - 5.5 mmol/L LAB CHEMISTRY METHOD 02/09/2025 10:28 AM [facility] Chloride 104 96 - 110 mmol/L LAB CHEMISTRY METHOD 02/09/2025 10:28 AM [facility] CO2 27 21 - 32 mmol/L LAB CHEMISTRY METHOD 02/09/2025 10:28 AM [facility] Anion Gap 8 3 - 11 LAB CHEMISTRY METHOD 02/09/2025 10:28 AM [facility] Glucose 235(H) 70 - 100 mg/dL LAB CHEMISTRY METHOD 02/09/2025 10:28 AM [facility] BUN 13 5 - 25 mg/dL LAB CHEMISTRY METHOD 02/09/2025 10:28 AM [facility] Creatinine 0.65(L) 0.70 - 1.30 mg/dL LAB CHEMISTRY METHOD 02/09/2025 10:28 AM [facility] eGFR 109 >=60 mL/min/1. 73m2 LAB CHEMISTRY METHOD 02/09/2025 10:28 AM [facility] Comment:Calculation based on the Chronic Kidney Disease Epidemiology Collaboration (CKD-EPI) equation refit without adjustment for race. BUN/Creatinine Ratio 20.0 LAB CHEMISTRY METHOD 02/09/2025 10:28 AM [facility] Calcium 9.1 8.5 - 10.5 mg/dL LAB CHEMISTRY METHOD 02/09/2025 10:28 AM [facility] AST (SGOT) 11 10 - 42 unit/L LAB CHEMISTRY METHOD 02/09/2025 10:28 AM [facility] ALT (SGPT) 37 10 - 60 unit/L LAB CHEMISTRY METHOD 02/09/2025 10:28 AM [facility] Alkaline Phosphatase 148(H) 42 - 121 unit/L LAB CHEMISTRY METHOD 02/09/2025 10:28 AM [facility] Total Protein 6.6 6.0 - 8.0 g/dL LAB CHEMISTRY METHOD 02/09/2025 10:28 AM [facility] Albumin 3.2 3.2 - 5.0 g/dL LAB CHEMISTRY METHOD 02/09/2025 10:28 AM [facility] Total Bilirubin 0.2 0.0 - 1.4 mg/dL LAB CHEMISTRY METHOD 02/09/2025 10:28 AM [facility] Blood Venous blood specimen / Unknown Venipuncture / Unknown 02/09/2025 5:47 AM EDT 02/09/2025 9:25 AM EDT us Ailyn Stringer MD LAB BLOOD ORDERABLES Fin al Result [facility] [address] [place] [address], * Complete blood count (02/09/2025 5:47 AM EDT) WBC 6.2 4.8 - 10.8 K/mcL LAB HEMETOLOGY METHOD 02/09/2025 9:36 AM EDT [facility] RBC 4.50 4.50 - 5.50 M/mcL LAB HEMETOLOGY METHOD 02/09/2025 9:36 AM EDT [facility] Hemoglobin 14.2 13.5 - 17.5 g/dL LAB HEMETOLOGY METHOD 02/09/2025 9:36 AM EDT [facility] Hematocrit 42.2 42.0 - 54.0 % LAB HEMETOLOGY METHOD 02/09/2025 9:36 AM EDT [facility] MCV 94.6 79.0 - 98.0 FL LAB HEMETOLOGY METHOD 02/09/2025 9:36 AM EDT [facility] MCH 31.8 27.0 - 32.0 pcg LAB HEMETOLOGY METHOD 02/09/2025 9:36 AM EDT [facility] MCHC 33.6 32.0 - 37.0 g/dL LAB HEMETOLOGY METHOD 02/09/2025 9:36 AM EDT [facility] RDW 12.3 11.0 - 15.0 % LAB HEMETOLOGY METHOD 02/09/2025 9:36 AM EDT [facility] Platelets 254 130 - 400 K/mcL LAB HEMETOLOGY METHOD 02/09/2025 9:36 AM EDT [facility] MPV 11.0 7.0 - 11.0 FL LAB HEMETOLOGY METHOD 02/09/2025 9:36 AM EDT [facility] NRBC 0.0 <1.0 % LAB HEMETOLOGY METHOD 02/09/2025 9:36 AM EDT [facility] NRBC Absolute 0.00 <0.10 K/mcL LAB HEMETOLOGY METHOD 02/09/2025 9:36 AM EDT [facility] Blood Venous blood specimen / Unknown Venipuncture / Unknown 02/09/2025 5:47 AM EDT 02/09/2025 9:25 AM EDT us Ailyn Stringer MD LAB BLOOD ORDERABLES Fin al Result [facility] [address] [place] [address], documented in this encounter Visit Diagnoses Diagnosis Malignant neoplasm of brain, unspecified (CMS/HCC V24, CMS/HCC V28) documented in this encounter Care Teams Applications Processor Relationship Specialty Start Date End Date Physician, No Pcp PCP - General 11/05/24 documented as of this encounter
--- OUTSIDE RECORDS SUMMARY | 2025-10-13 12:49 | XMS_ITS | Encounter Summary ---
Author Organization [facility] Address [address] [place] [address] Care Team Providers Care Fitness Assistant Name Role Phone Physician, No Pcp Primary Care Provider Unavaila ble Encounter Details Date Type Department Care Team (Late st Contact Info) Description 01/23/2025 Lab Requisition [facility] - Main Lab 299 [facility] [place] [address] Ailyn Srtinger MD [address] [phone] Malignant neoplasm of brain, unspecified (CMS/HCC V24, [...] mmol/L LAB CHEMISTRY METHOD 01/25/2025 1:48 PM [facility] Potassium 3.4(L) 3.5 - 5.5 mmol/L LAB CHEMISTRY METHOD 01/25/2025 1:48 PM [facility] Chloride 107 96 - 110 mmol/L LAB CHEMISTRY METHOD 01/25/2025 1:48 PM [facility] CO2 22 21 - 32 mmol/L LAB CHEMISTRY METHOD 01/25/2025 1:48 PM [facility] Anion Gap 10 3 - 11 LAB CHEMISTRY METHOD 01/25/2025 1:48 PM [facility] Glucose 165(H) 70 - 100 mg/dL LAB CHEMISTRY METHOD 01/25/2025 1:48 PM [facility] BUN 13 5 - 25 mg/dL LAB CHEMISTRY METHOD 01/25/2025 1:48 PM [facility] Creatinine 0.72 0.70 - 1.30 mg/dL LAB CHEMISTRY METHOD 01/25/2025 1:48 PM [facility] eGFR 105 >=60 mL/min/1. 73m2 LAB CHEMISTRY METHOD 01/25/2025 1:48 PM [facility] Comment:Calculation based on the Chronic Kidney Disease Epidemiology Collaboration (CKD-EPI) equation refit without adjustment for race. BUN/Creatinine Ratio 18.1 LAB CHEMISTRY METHOD 01/25/2025 1:48 PM [facility] Calcium 8.7 8.5 - 10.5 mg/dL LAB CHEMISTRY METHOD 01/25/2025 1:48 PM [facility] AST (SGOT) 17 10 - 42 unit/L LAB CHEMISTRY METHOD 01/25/2025 1:48 PM [facility] ALT (SGPT) 44 10 - 60 unit/L LAB CHEMISTRY METHOD 01/25/2025 1:48 PM [facility] Alkaline Phosphatase 110 42 - 121 unit/L LAB CHEMISTRY METHOD 01/25/2025 1:48 PM [facility] Total Protein 6.1 6.0 - 8.0 g/dL LAB CHEMISTRY METHOD 01/25/2025 1:48 PM [facility] Albumin 3.2 3.2 - 5.0 g/dL LAB CHEMISTRY METHOD 01/25/2025 1:48 PM [facility] Total Bilirubin 0.3 0.0 - 1.4 mg/dL LAB CHEMISTRY METHOD 01/25/2025 1:48 PM [facility] Blood Venous blood specimen / Unknown Venipuncture / Unknown 01/25/2025 8:23 AM EDT 01/25/2025 11:32 AM EDT Ailyn Stringer MD LAB BLOOD ORDERABLES Fin al Result [facility] [address] [place] [address], * (ABNORMAL) Complete blood count (01/25/2025 8:23 AM EDT) WBC 6.9 4.8 - 10.8 K/mcL LAB HEMETOLOGY METHOD 01/25/2025 12:42 PM EDT [facility] RBC 4.40(L) 4.50 - 5.50 M/mcL LAB HEMETOLOGY METHOD 01/25/2025 12:42 PM EDT [facility] Hemoglobin 14.3 13.5 - 17.5 g/dL LAB HEMETOLOGY METHOD 01/25/2025 12:42 PM EDT [facility] Hematocrit 41.7(L) 42.0 - 54.0 % LAB HEMETOLOGY METHOD 01/25/2025 12:42 PM EDT [facility] MCV 94.8 79.0 - 98.0 FL LAB HEMETOLOGY METHOD 01/25/2025 12:42 PM EDT [facility] MCH 32.5(H) 27.0 - 32.0 pcg LAB HEMETOLOGY METHOD 01/25/2025 12:42 PM EDT [facility] MCHC 34.3 32.0 - 37.0 g/dL LAB HEMETOLOGY METHOD 01/25/2025 12:42 PM EDT [facility] RDW 12.6 11.0 - 15.0 % LAB HEMETOLOGY METHOD 01/25/2025 12:42 PM EDT [facility] Platelets 242 130 - 400 K/mcL LAB HEMETOLOGY METHOD 01/25/2025 12:42 PM EDT [facility] MPV 10.6 7.0 - 11.0 FL LAB HEMETOLOGY METHOD 01/25/2025 12:42 PM EDT [facility] NRBC 0.0 <1.0 % LAB HEMETOLOGY METHOD 01/25/2025 12:42 PM EDT [facility] NRBC Absolute 0.00 <0.10 K/mcL LAB HEMETOLOGY METHOD 01/25/2025 12:42 PM EDT [facility] Blood Venous blood specimen / Unknown Venipuncture / Unknown 01/25/2025 8:23 AM EDT 01/25/2025 11:32 AM EDT us Ailyn Stringer MD LAB BLOOD ORDERABLES Fin al Result [facility] [address] [place] [address], documented in this encounter Visit Diagnoses Diagnosis Malignant neoplasm of brain, unspecified (CMS/HCC V24, CMS/HCC V28) documented in this encounter Care Teams Fitness Assistant Relationship Specialty Start Date End Date Physician, No Pcp PCP - General 11/05/24 documented as of this encounter
--- OUTSIDE RECORDS SUMMARY | 2025-10-13 12:49 | XMS_ITS | Encounter Summary ---
Author Organization [facility] Address [address] [place] [address] Care Team Providers Care Licensed Bondsman Name Role Phone Physician, No Pcp Primary Care Provider Unavaila ble Encounter Details Date Type Department Care Team (Late st Contact Info) Description 01/05/2025 Lab Requisition [facility] - Main Lab 299 [facility] [place] [address] Ailyn Stringer MD [address] [phone] Encounter for therapeutic drug level monitoring Social [...] LAB CHEMISTRY METHOD 01/05/2025 11:39 AM EST [facility] Blood Venous blood specimen / Unknown Venipuncture / Unknown 01/05/2025 5:20 AM EST 01/05/2025 8:26 AM EST us Ailyn Stringer MD LAB BLOOD ORDERABLES Fin al Result [facility] [address] [place] [address], documented in this encounter Visit Diagnoses Diagnosis Encounter for therapeutic drug level monitoring documented in this encounter Care Teams Licensed Bondsman Relationship Specialty Start Date End Date Physician, No Pcp PCP - General 11/05/24 documented as of this encounter
--- OUTSIDE RECORDS SUMMARY | 2025-10-13 12:49 | XMS_ITS | Encounter Summary ---
Author Organization [facility] Address [address] [place] [address] Care Team Providers Care Completion Engineer Name Role Phone Physician, No Pcp Primary Care Provider Unavaila ble Encounter Details Date Type Department Care Team (Late st Contact Info) Description 01/02/2025 Lab Requisition [facility] - Main Lab 299 [facility] [place] [address] Delvin Harrell MD [address] [place] [address] Encounter for therapeutic drug level monitoring Social [...] LAB CHEMISTRY METHOD 01/02/2025 10:29 AM EST [facility] Blood Venous blood specimen / Unknown Venipuncture / Unknown 01/02/2025 8:40 AM EST 01/02/2025 10:05 AM EST us Delvin Harrell MD LAB BLOOD ORDERABLES Final R esult [facility] [address] [place] [address], documented in this encounter Visit Diagnoses Diagnosis Encounter for therapeutic drug level monitoring documented in this encounter Care Teams Completion Engineer Relationship Specialty Start Date End Date Physician, No Pcp PCP - General 11/05/24 documented as of this encounter
--- OUTSIDE RECORDS SUMMARY | 2025-10-13 12:49 | XMS_ITS | Encounter Summary ---
Author Organization [facility] Address [address] [place] [address] Care Team Providers Care Diagrammer And Seamer Name Role Phone Physician, No Pcp Primary Care Provider Unavaila ble Encounter Details Date Type Department Care Team (Late st Contact Info) Description 01/02/2025 Lab Requisition [facility] - Main Lab 299 [facility] [place] [address] Ailyn Stringer MD [address] [phone] Malignant neoplasm of brain, unspecified (CMS/HCC V24, [...] - 2.0 ug/mL 01/06/2025 1:21 PM EST [facility] Comment: Phenytoin free toxic level: >3.0 ug/mL If applicable, any drug confirmation testing reported here was developed and the performance characteristics determined by [facility]. This confirmation testing has not been cleared or approved by the FDA. The laboratory is regulated under CLIA as qualified to perform high-complexity testing. This test is used for patient testing purposes. It should not be regarded as investigational or for research. Test performed at [facility], [address] , [place] [address] Vee Em MD, PhD - House Wirer Helper Blood Venous blood specimen / Unknown Venipuncture / Unknown 01/04/2025 8:24 AM EST 01/04/2025 11:21 AM EST Ailyn Stringer MD LAB BLOOD ORDERABLES Fin al Result [facility] [address] [place] [address] * (ABNORMAL) Comprehensive metabolic panel (01/04/2025 8:24 AM EST) Sodium 141 133 - 145 mmol/L LAB CHEMISTRY METHOD 01/04/2025 12:47 PM [facility] Potassium 3.6 3.5 - 5.5 mmol/L LAB CHEMISTRY METHOD 01/04/2025 12:47 PM [facility] Chloride 109 96 - 110 mmol/L LAB CHEMISTRY METHOD 01/04/2025 12:47 PM [facility] CO2 21 21 - 32 mmol/L LAB CHEMISTRY METHOD 01/04/2025 12:47 PM [facility] Anion Gap 11 3 - 11 LAB CHEMISTRY METHOD 01/04/2025 12:47 PM [facility] Glucose 225(H) 70 - 100 mg/dL LAB CHEMISTRY METHOD 01/04/2025 12:47 PM [facility] BUN 13 5 - 25 mg/dL LAB CHEMISTRY METHOD 01/04/2025 12:47 PM [facility] Creatinine 0.80 0.70 - 1.30 mg/dL LAB CHEMISTRY METHOD 01/04/2025 12:47 PM [facility] eGFR 103 >=60 mL/min/1. 73m2 LAB CHEMISTRY METHOD 01/04/2025 12:47 PM [facility] Comment:Calculation based on the Chronic Kidney Disease Epidemiology Collaboration (CKD-EPI) equation refit without adjustment for race. BUN/Creatinine Ratio 16.3 LAB CHEMISTRY METHOD 01/04/2025 12:47 PM [facility] Calcium 8.9 8.5 - 10.5 mg/dL LAB CHEMISTRY METHOD 01/04/2025 12:47 PM [facility] AST (SGOT) 31 10 - 42 unit/L LAB CHEMISTRY METHOD 01/04/2025 12:47 PM [facility] ALT (SGPT) 72(H) 10 - 60 unit/L LAB CHEMISTRY METHOD 01/04/2025 12:47 PM [facility] Alkaline Phosphatase 122(H) 42 - 121 unit/L LAB CHEMISTRY METHOD 01/04/2025 12:47 PM [facility] Total Protein 7.1 6.0 - 8.0 g/dL LAB CHEMISTRY METHOD 01/04/2025 12:47 PM [facility] Albumin 3.6 3.2 - 5.0 g/dL LAB CHEMISTRY METHOD 01/04/2025 12:47 PM [facility] Total Bilirubin 0.3 0.0 - 1.4 mg/dL LAB CHEMISTRY METHOD 01/04/2025 12:47 PM [facility] Blood Venous blood specimen / Unknown Venipuncture / Unknown 01/04/2025 8:24 AM EST 01/04/2025 11:17 AM EST us Ailyn Stringer MD LAB BLOOD ORDERABLES Fin al Result [facility] [address] [place] [address], * (ABNORMAL) Complete blood count (01/04/2025 8:24 AM EST) WBC 7.6 4.8 - 10.8 K/mcL LAB HEMETOLOGY METHOD 01/04/2025 2:13 PM [facility] RBC 4.80 4.50 - 5.50 M/mcL LAB HEMETOLOGY METHOD 01/04/2025 2:13 PM EST [facility] Hemoglobin 15.6 13.5 - 17.5 g/dL LAB HEMETOLOGY METHOD 01/04/2025 2:13 PM [facility] Hematocrit 47.8 42.0 - 54.0 % LAB HEMETOLOGY METHOD 01/04/2025 2:13 PM [facility] MCV 99.2(H) 79.0 - 98.0 FL LAB HEMETOLOGY METHOD 01/04/2025 2:13 PM [facility] MCH 32.4(H) 27.0 - 32.0 pcg LAB HEMETOLOGY METHOD 01/04/2025 2:13 PM [facility] MCHC 32.6 32.0 - 37.0 g/dL LAB HEMETOLOGY METHOD 01/04/2025 2:13 PM [facility] RDW 12.4 11.0 - 15.0 % LAB HEMETOLOGY METHOD 01/04/2025 2:13 PM [facility] Platelets 294 130 - 400 K/mcL LAB HEMETOLOGY METHOD 01/04/2025 2:13 PM [facility] MPV 11.1(H) 7.0 - 11.0 FL LAB HEMETOLOGY METHOD 01/04/2025 2:13 PM [facility] NRBC 0.0 <1.0 % LAB HEMETOLOGY METHOD 01/04/2025 2:13 PM [facility] NRBC Absolute 0.00 <0.10 K/mcL LAB HEMETOLOGY METHOD 01/04/2025 2:13 PM [facility] Blood Venous blood specimen / Unknown Venipuncture / Unknown 01/04/2025 8:24 AM EST 01/04/2025 11:18 AM EST Ailyn Stringer MD LAB BLOOD ORDERABLES Fin al Result [facility] [address] [place] [address], documented in this encounter Visit Diagnoses Diagnosis Malignant neoplasm of brain, unspecified (CMS/HCC V24, CMS/HCC V28) Encounter for therapeutic drug level monitoring documented in this encounter Care Teams Diagrammer And Seamer Relationship Specialty Start Date End Date Physician, No Pcp PCP - General 11/05/24 documented as of this encounter
--- OUTSIDE RECORDS SUMMARY | 2025-10-13 12:49 | XMS_ITS | Encounter Summary ---
Author Organization [facility] Address [address] [place] [address] Care Team Providers Care Pharmacy Coordinator Name Role Phone Physician, No Pcp Primary Care Provider Unavaila ble Encounter Details Date Type Department Care Team (Late st Contact Info) Description 2025 Lab Requisition [facility] - Main Lab 299 [facility] [place] [address] Ailyn Stringer MD [address] [phone] Malignant neoplasm of brain, unspecified (CMS/HCC V24, [...] mmol/L LAB CHEMISTRY METHOD 01/18/2025 11:47 AM [facility] Potassium 3.4(L) 3.5 - 5.5 mmol/L LAB CHEMISTRY METHOD 01/18/2025 11:47 AM [facility] Chloride 106 96 - 110 mmol/L LAB CHEMISTRY METHOD 01/18/2025 11:47 AM [facility] CO2 25 21 - 32 mmol/L LAB CHEMISTRY METHOD 01/18/2025 11:47 AM [facility] Anion Gap 10 3 - 11 LAB CHEMISTRY METHOD 01/18/2025 11:47 AM [facility] Glucose 172(H) 70 - 100 mg/dL LAB CHEMISTRY METHOD 01/18/2025 11:47 AM [facility] BUN 16 5 - 25 mg/dL LAB CHEMISTRY METHOD 01/18/2025 11:47 AM EDT [facility] Creatinine 0.87 0.70 - 1.30 mg/dL LAB CHEMISTRY METHOD 01/18/2025 11:47 AM EDT [facility] eGFR 99 >=60 mL/min/1. 73m2 LAB CHEMISTRY METHOD 01/18/2025 11:47 AM T [facility] Comment:Calculation based on the Chronic Kidney Disease Epidemiology Collaboration (CKD-EPI) equation refit without adjustment for race. BUN/Creatinine Ratio 18.4 LAB CHEMISTRY METHOD 01/18/2025 11:47 AM T [facility] Calcium 8.8 8.5 - 10.5 mg/dL LAB CHEMISTRY METHOD 01/18/2025 11:47 AM [facility] Blood Venous blood specimen / Unknown Venipuncture / Unknown 01/18/2025 8:00 AM EDT 01/18/2025 10:35 AM EDT us Ailyn Stringer MD LAB BLOOD ORDERABLES Fin al Result [facility] [address] [place] [address], * (ABNORMAL) Complete blood count (01/18/2025 8:00 AM EDT) WBC 8.1 4.8 - 10.8 K/mcL LAB HEMETOLOGY METHOD 01/18/2025 11:21 AM EDT [facility] RBC 4.60 4.50 - 5.50 M/mcL LAB HEMETOLOGY METHOD 01/18/2025 11:21 AM EDT [facility] Hemoglobin 15.1 13.5 - 17.5 g/dL LAB HEMETOLOGY METHOD 01/18/2025 11:21 AM T [facility] Hematocrit 45.2 42.0 - 54.0 % LAB HEMETOLOGY METHOD 01/18/2025 11:21 AM EDT [facility] MCV 97.6 79.0 - 98.0 FL LAB HEMETOLOGY METHOD 01/18/2025 11:21 AM EDT [facility] MCH 32.6(H) 27.0 - 32.0 pcg LAB HEMETOLOGY METHOD 01/18/2025 11:21 AM T [facility] MCHC 33.4 32.0 - 37.0 g/dL LAB HEMETOLOGY METHOD 01/18/2025 11:21 AM EDT [facility] RDW 12.4 11.0 - 15.0 % LAB HEMETOLOGY METHOD 01/18/2025 11:21 AM [facility] Platelets 276 130 - 400 K/mcL LAB HEMETOLOGY METHOD 01/18/2025 11:21 AM [facility] MPV 10.6 7.0 - 11.0 FL LAB HEMETOLOGY METHOD 01/18/2025 11:21 AM [facility] NRBC 0.0 <1.0 % LAB HEMETOLOGY METHOD 01/18/2025 11:21 AM [facility] NRBC Absolute 0.00 <0.10 K/mcL LAB HEMETOLOGY METHOD 01/18/2025 11:21 AM [facility] Blood Venous blood specimen / Unknown Venipuncture / Unknown 01/18/2025 8:00 AM EDT 01/18/2025 10:36 AM EDT us Ailyn Stringer MD LAB BLOOD ORDERABLES Fin al Result [facility] [address] [place] [address], documented in this encounter Visit Diagnoses Diagnosis Malignant neoplasm of brain, unspecified (CMS/HCC V24, CMS/HCC V28) documented in this encounter Care Teams Pharmacy Coordinator Relationship Specialty Start Date End Date Physician, No Pcp PCP - General 11/05/24 documented as of this encounter
--- OUTSIDE RECORDS SUMMARY | 2025-10-13 12:49 | XMS_ITS | Encounter Summary ---
Author Organization [facility] Address [address] [place] [address] Care Team Providers Care Strategic Planner Name Role Phone Physician, No Pcp Primary Care Provider Unavaila ble Encounter Details Date Type Department Care Team (Late st Contact Info) Description 11/20/[address] [facility] - Main Lab 299 [facility] [place] [address] Ailyn Stringer MD [address] [phone] Malignant neoplasm of brain, unspecified (CMS/HCC V24, [...] mmol/L LAB CHEMISTRY METHOD 11/23/2024 10:35 AM [facility] Potassium 3.6 3.5 - 5.5 mmol/L LAB CHEMISTRY METHOD 11/23/2024 10:35 AM [facility] Chloride 108 96 - 110 mmol/L LAB CHEMISTRY METHOD 11/23/2024 10:35 AM [facility] CO2 24 21 - 32 mmol/L LAB CHEMISTRY METHOD 11/23/2024 10:35 AM [facility] Anion Gap 7 3 - 11 LAB CHEMISTRY METHOD 11/23/2024 10:35 AM [facility] Glucose 170(H) 70 - 100 mg/dL LAB CHEMISTRY METHOD 11/23/2024 10:35 AM [facility] BUN 14 5 - 25 mg/dL LAB CHEMISTRY METHOD 11/23/2024 10:35 AM [facility] Creatinine 0.71 0.70 - 1.30 mg/dL LAB CHEMISTRY METHOD 11/23/2024 10:35 AM [facility] eGFR 106 >=60 mL/min/1. 73m2 LAB CHEMISTRY METHOD 11/23/2024 10:35 AM [facility] Comment:Calculation based on the Chronic Kidney Disease Epidemiology Collaboration (CKD-EPI) equation refit without adjustment for race. BUN/Creatinine Ratio 19.7 LAB CHEMISTRY METHOD 11/23/2024 10:35 AM [facility] Calcium 8.5 8.5 - 10.5 mg/dL LAB CHEMISTRY METHOD 11/23/2024 10:35 AM [facility] AST (SGOT) 19 10 - 42 unit/L LAB CHEMISTRY METHOD 11/23/2024 10:35 AM [facility] ALT (SGPT) 72(H) 10 - 60 unit/L LAB CHEMISTRY METHOD 11/23/2024 10:35 AM [facility] Alkaline Phosphatase 100 42 - 121 unit/L LAB CHEMISTRY METHOD 11/23/2024 10:35 AM [facility] Total Protein 6.0 6.0 - 8.0 g/dL LAB CHEMISTRY METHOD 11/23/2024 10:35 AM [facility] Albumin 3.3 3.2 - 5.0 g/dL LAB CHEMISTRY METHOD 11/23/2024 10:35 AM [facility] Total Bilirubin 0.2 0.0 - 1.4 mg/dL LAB CHEMISTRY METHOD 11/23/2024 10:35 AM [facility] Blood Venous blood specimen / Unknown Venipuncture / Unknown 11/23/2024 7:06 AM EST 11/23/2024 9:35 AM EST us Ailyn Stringer MD LAB BLOOD ORDERABLES Fin al Result [facility] [address] [place] [address], * (ABNORMAL) Complete blood count (11/23/2024 7:06 AM EST) [facility] WBC 6.0 4.8 - 10.8 K/mcL LAB HEMETOLOGY METHOD 11/23/2024 9:58 AM [facility] RBC 4.10(L) 4.50 - 5.50 M/mcL LAB HEMETOLOGY METHOD 11/23/2024 9:58 AM [facility] Hemoglobin 13.3(L) 13.5 - 17.5 g/dL LAB HEMETOLOGY METHOD 11/23/2024 9:58 AM [facility] Hematocrit 40.5(L) 42.0 - 54.0 % LAB HEMETOLOGY METHOD 11/23/2024 9:58 AM [facility] MCV 99.0(H) 79.0 - 98.0 FL LAB HEMETOLOGY METHOD 11/23/2024 9:58 AM [facility] MCH 32.5(H) 27.0 - 32.0 pcg LAB HEMETOLOGY METHOD 11/23/2024 9:58 AM [facility] MCHC 32.8 32.0 - 37.0 g/dL LAB HEMETOLOGY METHOD 11/23/2024 9:58 AM [facility] RDW 13.0 11.0 - 15.0 % LAB HEMETOLOGY METHOD 11/23/2024 9:58 AM [facility] Platelets 228 130 - 400 K/mcL LAB HEMETOLOGY METHOD 11/23/2024 9:58 AM [facility] MPV 10.9 7.0 - 11.0 FL LAB HEMETOLOGY METHOD 11/23/2024 9:58 AM [facility] NRBC 0.0 <1.0 % LAB HEMETOLOGY METHOD 11/23/2024 9:58 AM EST [facility] NRBC Absolute 0.00 <0.10 K/mcL LAB HEMETOLOGY METHOD 11/23/2024 9:58 AM EST [facility] Blood Venous blood specimen / Unknown Venipuncture / Unknown 11/23/2024 7:06 AM EST 11/23/2024 9:35 AM EST us Ailyn Stringer MD LAB BLOOD ORDERABLES Fin al Result [facility] [address] [place] [address], documented in this encounter Visit Diagnoses Diagnosis Malignant neoplasm of brain, unspecified (CMS/HCC V24, CMS/HCC V28) documented in this encounter Care Teams Strategic Planner Relationship Specialty Start Date End Date Physician, No Pcp PCP - General 11/05/24 documented as of this encounter
--- OUTSIDE RECORDS SUMMARY | 2025-10-13 12:49 | XMS_ITS | Encounter Summary ---
Author Organization [facility] Address [address] [place] [address] Care Team Providers Care Mail List Processor Name Role Phone Physician, No Pcp Primary Care Provider Unavaila ble Encounter Details Date Type Department Care Team (Late st Contact Info) Description 05/07/2025 Lab Requisition [facility] - Main Lab 299 [facility] [place] [address] Ailyn Stringer MD [address] [phone] Malignant neoplasm of brain, unspecified (CMS/HCC V24, [...] V28) documented in this encounter Care Teams Mail List Processor Relationship Specialty Start Date End Date Physician, No Pcp PCP - General 11/05/24 documented as of this encounter
--- OUTSIDE RECORDS SUMMARY | 2025-10-13 12:49 | XMS_ITS | Encounter Summary ---
Author Organization [facility] Address [address] [place] [address] Care Team Providers Care Platinum And Palladium Kettle Tender Name Role Phone Physician, No Pcp Primary Care Provider Unavaila ble Encounter Details Date Type Department Care Team (Late st Contact Info) Description 01/22/[address] [facility] - Main Lab 299 [facility] [place] [address] Ailyn Stringer MD [address] [phone] Epilepsy, unspecified, intractable, without status epilepticus (CMS/HCC [...] 6:22 AM EST Jigna Kee RN * Do you have serious difficulty [...] LAB CHEMISTRY METHOD 01/22/2025 10:30 AM EDT [facility] Blood Venous blood specimen / Unknown Venipuncture / Unknown 01/22/2025 6:50 AM EDT 01/22/2025 9:22 AM EDT us Ailyn Stringer MD LAB BLOOD ORDERABLES Fin al Result [facility] [address] [place] [address], documented in this encounter Visit Diagnoses Diagnosis Epilepsy, unspecified, intractable, without status epilepticus (CMS/HCC V24, CMS/HCC V28) documented in this encounter Care Teams Platinum And Palladium Kettle Tender Relationship Specialty Start Date End Date Physician, No Pcp PCP - General 11/05/24 documented as of this encounter
--- OUTSIDE RECORDS SUMMARY | 2025-10-13 12:49 | XMS_ITS | Encounter Summary ---
Author Organization [facility] Address [address] [place] [address] Care Team Providers Care Office Machine Punch Operator Name Role Phone Physician, No Pcp Primary Care Provider Unavaila ble Encounter Details Date Type Department Care Team (Late st Contact Info) Description 11/13/2024 Lab Requisition [facility] - Main Lab [address] [facility] [place] [address] Ailyn Stringer MD [address] [phone] Malignant neoplasm of brain, unspecified (CMS/HCC V24, [...] mmol/L LAB CHEMISTRY METHOD 11/16/2024 12:36 PM [facility] Potassium 3.8 3.5 - 5.5 mmol/L LAB CHEMISTRY METHOD 11/16/2024 12:36 PM [facility] Chloride 108 96 - 110 mmol/L LAB CHEMISTRY METHOD 11/16/2024 12:36 PM [facility] CO2 27 21 - 32 mmol/L LAB CHEMISTRY METHOD 11/16/2024 12:36 PM [facility] Anion Gap 5 3 - 11 LAB CHEMISTRY METHOD 11/16/2024 12:36 PM [facility] Glucose 84 70 - 100 mg/dL LAB CHEMISTRY METHOD 11/16/2024 12:36 PM [facility] BUN 14 5 - 25 mg/dL LAB CHEMISTRY METHOD 11/16/2024 12:36 PM [facility] Creatinine 0.77 0.70 - 1.30 mg/dL LAB CHEMISTRY METHOD 11/16/2024 12:36 PM [facility] eGFR 104 >=60 mL/min/1. 73m2 LAB CHEMISTRY METHOD 11/16/2024 12:36 PM [facility] Comment:Calculation based on the Chronic Kidney Disease Epidemiology Collaboration (CKD-EPI) equation refit without adjustment for race. BUN/Creatinine Ratio 18.2 LAB CHEMISTRY METHOD 11/16/2024 12:36 PM [facility] Calcium 8.9 8.5 - 10.5 mg/dL LAB CHEMISTRY METHOD 11/16/2024 12:36 PM [facility] AST (SGOT) 36 10 - 42 unit/L LAB CHEMISTRY METHOD 11/16/2024 12:36 PM [facility] ALT (SGPT) 90(H) 10 - 60 unit/L LAB CHEMISTRY METHOD 11/16/2024 12:36 PM [facility] Alkaline Phosphatase 102 42 - 121 unit/L LAB CHEMISTRY METHOD 11/16/2024 12:36 PM [facility] Total Protein 6.3 6.0 - 8.0 g/dL LAB CHEMISTRY METHOD 11/16/2024 12:36 PM [facility] Albumin 3.4 3.2 - 5.0 g/dL LAB CHEMISTRY METHOD 11/16/2024 12:36 PM [facility] Total Bilirubin 0.3 0.0 - 1.4 mg/dL LAB CHEMISTRY METHOD 11/16/2024 12:36 PM [facility] Blood Venous blood specimen / Unknown Venipuncture / Unknown 11/16/2024 6:33 AM EST 11/16/2024 10:58 AM EST us Ailyn Stringer MD LAB BLOOD ORDERABLES Fin al Result [facility] [address] [place] [address], * (ABNORMAL) Complete blood count (11/16/2024 6:33 AM EST) [facility] WBC 6.0 4.8 - 10.8 K/mcL LAB HEMETOLOGY METHOD 11/16/2024 11:56 AM [facility] RBC 4.10(L) 4.50 - 5.50 M/mcL LAB HEMETOLOGY METHOD 11/16/2024 11:56 AM [facility] Hemoglobin 13.3(L) 13.5 - 17.5 g/dL LAB HEMETOLOGY METHOD 11/16/2024 11:56 AM [facility] Hematocrit 40.2(L) 42.0 - 54.0 % LAB HEMETOLOGY METHOD 11/16/2024 11:56 AM [facility] MCV 98.8(H) 79.0 - 98.0 FL LAB HEMETOLOGY METHOD 11/16/2024 11:56 AM [facility] MCH 32.7(H) 27.0 - 32.0 pcg LAB HEMETOLOGY METHOD 11/16/2024 11:56 AM [facility] MCHC 33.1 32.0 - 37.0 g/dL LAB HEMETOLOGY METHOD 11/16/2024 11:56 AM [facility] RDW 13.3 11.0 - 15.0 % LAB HEMETOLOGY METHOD 11/16/2024 11:56 AM [facility] Platelets 246 130 - 400 K/mcL LAB HEMETOLOGY METHOD 11/16/2024 11:56 AM [facility] MPV 10.7 7.0 - 11.0 FL LAB HEMETOLOGY METHOD 11/16/2024 11:56 AM [facility] NRBC 0.0 <1.0 % LAB HEMETOLOGY METHOD 11/16/2024 11:56 AM EST [facility] NRBC Absolute 0.00 <0.10 K/[facility] LAB HEMETOLOGY METHOD 11/16/2024 11:56 AM EST [facility] Blood Venous blood specimen / Unknown Venipuncture / Unknown 11/16/2024 6:33 AM EST 11/16/2024 10:58 AM EST us Ailyn Stringer MD LAB BLOOD ORDERABLES Fin al Result [facility] [address] [place] [address], documented in this encounter Visit Diagnoses Diagnosis Malignant neoplasm of brain, unspecified (CMS/HCC V24, CMS/HCC V28) documented in this encounter Care Teams Office Machine Punch Operator Relationship Specialty Start Date End Date Physician, No Pcp PCP - General 11/05/24 documented as of this encounter
--- OUTSIDE RECORDS SUMMARY | 2025-10-13 12:49 | XMS_ITS | Clinical Summary ---
Author Organization [facility] Address [address] [place] [address] Phone Care Team Providers Care Edger Technician Name Role Phone Physician, No Pcp [...] at rehab, has plateaued, was sent to [facility] and rehab [place] after discharge from [facility] 11/10/2024. Patient had C-spine MRI 11/05/2024 [...] leg pain 01/22/2025 Weakness 11/10/2024 Seizure disorder ([facility] V24, [facility] V28) 10/13 Alcohol withdrawal ([facility] V24, [facility] V28) Seizure disorder ([facility] V24, [facility] V28) 10/12 Alcohol abuse 11/02/2024 Brain lesion 11/02/2024 Assessment & Plan (03/04/2025 5:34 PM EDT): Patient is s/p left frontal craniotomy for resection of tumor, meningioma, by Dr. Malone approximately 2004, patient believes surgery was [place] [facility]. He had recent hospital admission for frequent falls, history of EtOH use, stopped drinking November 11, 2024. He has seizure disorder, no recent seizures per patient. He sees Dr. Brito at [facility] neurology for tremors, short-term memory problems, seizures, [...] wear them. Patient had brain MRI 11/05/2024 [facility] that shows 3 extra-axial masses on contrasted imaging (Left frontal extra-axial masses (4 total) with mild restricted diffusion and enhancement 2 mm and 1.1 cm along the interhemispheric falx (series 11 image 41 and 33), just above the resection cavity measuring 1.2 (image 39), and in the peripheral left frontal lobe measuring 1.4 cm (image 49). I looked back at imaging from [facility] including brain MRI with and without contrast [...] middle frontal gyrus. Older MRI brain 07/10/2006 [facility] showed postop changes left superior frontal craniotomy [...] 03/04/2025: I reviewed patient's brain imaging from [facility] and [facility] with Dr. Vaughan from 2011 to current, she notes the 3 small meningiomas, which have grown over time, she is recommending radiosurgery XRT for these masses, is not recommending reexploration and craniotomy to resect the tumors, there is persistent gliosis (we reviewed prior MRI 2011 at [facility] flair images with current MRI, does not appear to be edema surrounding the masses) and encephalomalacia in the surgical bed, patient has history of seizures, likely would worsen with additional brain surgery. I will refer to [facility] radiation oncology department at [facility]. Falls frequently 11/02/2024 Resolved Problems Problem Noted Date Diagnosed Date Resolved Date Left arm weakness 10/27/2024 10/31/2024 Encounters Date Type Department Care Team Description 08/02/2025 Telephone Neurosurgery [place] [address] [place] [address] Dodie Vaugahn MD from Last 3 Months Immunizations Immunization [...] of Health Screening 12/10/2023 Depression Screening 11/11/2024 COVID-19 Vaccine ( season) 2025 01/27/2025, 11/21/2021, 04/18/2021, Additional history exists Influenza Vaccine (#1) 2025 01/19/2025 DTaP,Tdap,and Td Vaccines (2 - Td or Tdap) 06/13/2033 06/13/2023 HIB Vaccines Aged Out No longer eligi [...] Documents on File Type Date Recorded Patient Environmental Services Director Expl anation Advance Directives and Living Will [...] currently active code status orders. Care Teams Edger Technician Relationship Specialty Start Date End Date Physician, No Pcp PCP - General 11/05/24
--- OUTSIDE RECORDS SUMMARY | 2025-10-13 12:49 | XMS_ITS | Encounter Summary ---
Author Organization [facility] Address [address] [place] [address] Care Team Providers Care Project Program Manager Name Role Phone Physician, No Pcp Primary Care Provider Unavaila ble Encounter Details Date Type Department Care Team (Late st Contact Info) Description 01/09/2025 Lab Requisition [facility] - Main Lab [address] [facility] [place] [address] Ailyn Stringer MD [address] [phone] Encounter for therapeutic drug level monitoring Social [...] LAB CHEMISTRY METHOD 01/09/2025 11:51 AM EST [facility] Blood Venous blood specimen / Unknown Venipuncture / Unknown 01/09/2025 5:53 AM EST 01/09/2025 9:58 AM EST us Ailyn Stringer MD LAB BLOOD ORDERABLES Fin al Result [facility] [address] [place] [address], documented in this encounter Visit Diagnoses Diagnosis Encounter for therapeutic drug level monitoring documented in this encounter Care Teams Project Program Manager Relationship Specialty Start Date End Date Physician, No Pcp PCP - General 11/05/24 documented as of this encounter
--- OUTSIDE RECORDS SUMMARY | 2025-10-13 12:49 | XMS_ITS | Encounter Summary ---
Author Organization [facility] Address [address] [place] [address] Care Team Providers Care Test Specialist Name Role Phone Physician, No Pcp Primary Care Provider Unavaila ble Encounter Details Date Type Department Care Team (Late st Contact Info) Description 01/06/[address] [facility] - Main Lab [address] [facility] [place] [address] Ailyn Stringer MD [address] [phone] Encounter for therapeutic drug level monitoring Social [...] LAB CHEMISTRY METHOD 01/07/2025 11:10 AM EST [facility] Blood Venous blood specimen / Unknown Venipuncture / Unknown 01/07/2025 7:14 AM EST 01/07/2025 9:34 AM EST us Ailyn Stringer MD LAB BLOOD ORDERABLES Fin al Result [facility] [address] [place] [address], documented in this encounter Visit Diagnoses Diagnosis Encounter for therapeutic drug level monitoring documented in this encounter Care Teams Test Specialist Relationship Specialty Start Date End Date Physician, No Pcp PCP - General 11/05/24 documented as of this encounter
--- OUTSIDE RECORDS SUMMARY | 2025-10-13 12:49 | XMS_ITS | Encounter Summary ---
Author Organization [facility] Address [address] [place] [address] Care Team Providers Care Jury Consultant Name Role Phone Physician, No Pcp Primary Care Provider Unavaila ble Encounter Details Date Type Department Care Team (Late st Contact Info) Description 03/05/2025 Lab Requisition [facility] - Main Lab [address] [facility] [place] [address] Ailyn Stringer MD [address] [phone] Malignant neoplasm of brain, unspecified (CMS/HCC V24, [...] EDT Malignant neoplasm of brain, unspecified ([facility]/HCC V24, [facility]/HCC V28) COMPREHENSIVE METABOLIC PANEL Routine 03/08/2025 7:09 AM EDT Malignant neoplasm of brain, unspecified ([facility]/HCC V24, CMS/HCC V28) documented in this encounter Results * (ABNORMAL) Comprehensive metabolic panel (03/08/2025 7:09 AM EDT) Sodium 134 133 - 145 mmol/L LAB CHEMISTRY METHOD 03/08/2025 7:45 PM [facility] Potassium 4.0 3.5 - 5.5 mmol/L LAB CHEMISTRY METHOD 03/08/2025 7:45 PM [facility] Chloride 100 96 - 110 mmol/L LAB CHEMISTRY METHOD 03/08/2025 7:45 PM [facility] CO2 23 21 - 32 mmol/L LAB CHEMISTRY METHOD 03/08/2025 7:45 PM [facility] Anion Gap 11 3 - 11 LAB CHEMISTRY METHOD 03/08/2025 7:45 PM [facility] Glucose 375(H) 70 - 100 mg/dL LAB CHEMISTRY METHOD 03/08/2025 7:45 PM [facility] BUN 10 5 - 25 mg/dL LAB CHEMISTRY METHOD 03/08/2025 7:45 PM [facility] Creatinine 0.87 0.70 - 1.30 mg/dL LAB CHEMISTRY METHOD 03/08/2025 7:45 PM [facility] eGFR 99 >=60 mL/min/1. 73m2 LAB CHEMISTRY METHOD 03/08/2025 7:45 PM [facility] Comment:Calculation based on the Chronic Kidney Disease Epidemiology Collaboration (CKD-EPI) equation refit without adjustment for race. BUN/Creatinine Ratio 11.5 LAB CHEMISTRY METHOD 03/08/2025 7:45 PM [facility] Calcium 9.1 8.5 - 10.5 mg/dL LAB CHEMISTRY METHOD 03/08/2025 7:45 PM [facility] AST (SGOT) 19 10 - 42 unit/L LAB CHEMISTRY METHOD 03/08/2025 7:45 PM [facility] ALT (SGPT) 43 10 - 60 unit/L LAB CHEMISTRY METHOD 03/08/2025 7:45 PM [facility] Alkaline Phosphatase 169(H) 42 - 121 unit/L LAB CHEMISTRY METHOD 03/08/2025 7:45 PM [facility] Total Protein 7.2 6.0 - 8.0 g/dL LAB CHEMISTRY METHOD 03/08/2025 7:45 PM [facility] Albumin 3.7 3.2 - 5.0 g/dL LAB CHEMISTRY METHOD 03/08/2025 7:45 PM [facility] Total Bilirubin 0.2 0.0 - 1.4 mg/dL LAB CHEMISTRY METHOD 03/08/2025 7:45 PM [facility] Blood Venous blood specimen / Unknown Venipuncture / Unknown 03/08/2025 7:09 AM EDT 03/08/2025 11:36 AM EDT Ailyn Stringer MD LAB BLOOD ORDERABLES Fin al Result [facility] [address] [place] [address], * (ABNORMAL) Complete blood count (03/08/2025 7:09 AM EDT) [facility] Signature WBC 7.1 4.8 - 10.8 K/mcL LAB HEMETOLOGY METHOD 03/08/2025 12:49 PM EDT [facility] RBC 4.90 4.50 - 5.50 M/mcL LAB HEMETOLOGY METHOD 03/08/2025 12:49 PM EDT [facility] Hemoglobin 15.5 13.5 - 17.5 g/dL LAB HEMETOLOGY METHOD 03/08/2025 12:49 PM EDT [facility] Hematocrit 45.8 42.0 - 54.0 % LAB HEMETOLOGY METHOD 03/08/2025 12:49 PM EDT [facility] MCV 94.0 79.0 - 98.0 FL LAB HEMETOLOGY METHOD 03/08/2025 12:49 PM EDT [facility] MCH 31.8 27.0 - 32.0 pcg LAB HEMETOLOGY METHOD 03/08/2025 12:49 PM EDT [facility] MCHC 33.8 32.0 - 37.0 g/dL LAB HEMETOLOGY METHOD 03/08/2025 12:49 PM EDT [facility] RDW 12.5 11.0 - 15.0 % LAB HEMETOLOGY METHOD 03/08/2025 12:49 PM EDT [facility] Platelets 275 130 - 400 K/mcL LAB HEMETOLOGY METHOD 03/08/2025 12:49 PM EDT [facility] MPV 11.2(H) 7.0 - 11.0 FL LAB HEMETOLOGY METHOD 03/08/2025 12:49 PM EDT [facility] NRBC 0.0 <1.0 % LAB HEMETOLOGY METHOD 03/08/2025 12:49 PM EDT [facility] NRBC Absolute 0.00 <0.10 K/mcL LAB HEMETOLOGY METHOD 03/08/2025 12:49 PM EDT [facility] Blood Venous blood specimen / Unknown Venipuncture / Unknown 03/08/2025 7:09 AM EDT 03/08/2025 11:22 AM EDT us Ailyn Stringer MD LAB BLOOD ORDERABLES Fin al Result [facility] [address] [place] [address], documented in this encounter Visit Diagnoses Diagnosis Malignant neoplasm of brain, unspecified (CMS/HCC V24, CMS/HCC V28) documented in this encounter Care Teams Jury Consultant Relationship Specialty Start Date End Date Physician, No Pcp PCP - General 11/05/24 documented as of this encounter
--- OUTSIDE RECORDS SUMMARY | 2025-10-13 12:49 | XMS_ITS | Encounter Summary ---
Author Organization [facility] Address [address] [place] [address] Care Team Providers Care Manager Local Name Role Phone Physician, No Pcp Primary Care Provider Unavaila ble Encounter Details Date Type Department Care Team (Late st Contact Info) Description 02/20/2025 Lab Requisition [facility] - Main Lab [address] [facility] [place] [address] Ailyn Stringer MD [address] [phone] Malignant neoplasm of brain, unspecified (CMS/HCC V24, [...] AM EDT Malignant neoplasm of brain, unspecified ([facility]/HCC V24, CMS/HCC V28) COMPREHENSIVE METABOLIC PANEL Routine 02/22/2025 7:41 AM EDT Malignant neoplasm of brain, unspecified ([facility]/HCC V24, CMS/HCC V28) documented in this encounter Results * (ABNORMAL) Comprehensive metabolic panel (02/22/2025 7:41 AM EDT) Sodium 134 133 - 145 mmol/L LAB CHEMISTRY METHOD 02/22/2025 11:44 AM [facility] Potassium 3.8 3.5 - 5.5 mmol/L LAB CHEMISTRY METHOD 02/22/2025 11:44 AM [facility] Chloride 103 96 - 110 mmol/L LAB CHEMISTRY METHOD 02/22/2025 11:44 AM [facility] CO2 21 21 - 32 mmol/L LAB CHEMISTRY METHOD 02/22/2025 11:44 AM [facility] Anion Gap 10 3 - 11 LAB CHEMISTRY METHOD 02/22/2025 11:44 AM [facility] Glucose 273(H) 70 - 100 mg/dL LAB CHEMISTRY METHOD 02/22/2025 11:44 AM [facility] BUN 11 5 - 25 mg/dL LAB CHEMISTRY METHOD 02/22/2025 11:44 AM [facility] Creatinine 0.75 0.70 - 1.30 mg/dL LAB CHEMISTRY METHOD 02/22/2025 11:44 AM [facility] eGFR 104 >=60 mL/min/1. 73m2 LAB CHEMISTRY METHOD 02/22/2025 11:44 AM [facility] Comment:Calculation based on the Chronic Kidney Disease Epidemiology Collaboration (CKD-EPI) equation refit without adjustment for race. BUN/Creatinine Ratio 14.7 LAB CHEMISTRY METHOD 02/22/2025 11:44 AM [facility] Calcium 8.9 8.5 - 10.5 mg/dL LAB CHEMISTRY METHOD 02/22/2025 11:44 AM [facility] AST (SGOT) 13 10 - 42 unit/L LAB CHEMISTRY METHOD 02/22/2025 11:44 AM [facility] ALT (SGPT) 34 10 - 60 unit/L LAB CHEMISTRY METHOD 02/22/2025 11:44 AM [facility] Alkaline Phosphatase 157(H) 42 - 121 unit/L LAB CHEMISTRY METHOD 02/22/2025 11:44 AM [facility] Total Protein 6.9 6.0 - 8.0 g/dL LAB CHEMISTRY METHOD 02/22/2025 11:44 AM [facility] Albumin 3.4 3.2 - 5.0 g/dL LAB CHEMISTRY METHOD 02/22/2025 11:44 AM [facility] Total Bilirubin 0.3 0.0 - 1.4 mg/dL LAB CHEMISTRY METHOD 02/22/2025 11:44 AM [facility] Blood Venous blood specimen / Unknown Venipuncture / Unknown 02/22/2025 7:41 AM EDT 02/22/2025 10:48 AM EDT Ailyn Stringer MD LAB BLOOD ORDERABLES Fin al Result [facility] [address] [place] [address], * (ABNORMAL) Complete blood count (02/22/2025 7:41 AM EDT) WBC 7.4 4.8 - 10.8 K/mcL LAB HEMETOLOGY METHOD 02/22/2025 11:17 AM EDT [facility] RBC 4.70 4.50 - 5.50 M/mcL LAB HEMETOLOGY METHOD 02/22/2025 11:17 AM EDT [facility] Hemoglobin 15.0 13.5 - 17.5 g/dL LAB HEMETOLOGY METHOD 02/22/2025 11:17 AM EDT [facility] Hematocrit 43.7 42.0 - 54.0 % LAB HEMETOLOGY METHOD 02/22/2025 11:17 AM EDT [facility] MCV 93.8 79.0 - 98.0 FL LAB HEMETOLOGY METHOD 02/22/2025 11:17 AM EDT [facility] MCH 32.2(H) 27.0 - 32.0 pcg LAB [facility]OLOGY [facility] M[facility]C 34.3 32.0 - 37.0 g/dL LAB HEMETOLOGY METHOD 02/22/2025 11:17 AM EDT [facility] RDW 12.4 11.0 - 15.0 % LAB HEMETOLOGY METHOD 02/22/2025 11:17 AM EDT [facility] Platelets 279 130 - 400 K/mcL LAB HEMETOLOGY METHOD 02/22/2025 11:17 AM EDT [facility] MPV 11.6(H) 7.0 - 11.0 FL LAB HEMETOLOGY METHOD 02/22/2025 11:17 AM EDT [facility] NRBC 0.0 <1.0 % LAB HEMETOLOGY METHOD 02/22/2025 11:17 AM EDT [facility] NRBC Absolute 0.00 <0.10 K/mcL LAB HEMETOLOGY METHOD 02/22/2025 11:17 AM EDT [facility] Blood Venous blood specimen / Unknown Venipuncture / Unknown 02/22/2025 7:41 AM EDT 02/22/2025 10:48 AM EDT us Ailyn Stringer MD LAB BLOOD ORDERABLES Fin al Result [facility] [address] [place] [address], documented in this encounter Visit Diagnoses Diagnosis Malignant neoplasm of brain, unspecified (CMS/HCC V24, CMS/HCC V28) documented in this encounter Care Teams Manager Local Relationship Specialty Start Date End Date Physician, No Pcp PCP - General 11/05/24 documented as of this encounter
--- OUTSIDE RECORDS SUMMARY | 2025-10-13 12:49 | XMS_ITS | Encounter Summary ---
Author Organization [facility] Address [address] [place] [address] Care Team Providers Care Hypoid Gear Generator Name Role Phone Physician, No Pcp Primary Care Provider Unavaila ble Encounter Details Date Type Department Care Team (Late st Contact Info) Description 02/28/2025 Lab Requisition [facility] - Main Lab 299 [facility] [place] [address] Ailyn Stringer MD [address] [phone] Malignant neoplasm of brain, unspecified (CMS/HCC V24, [...] mmol/L LAB CHEMISTRY METHOD 03/01/2025 1:[address] [facility] Potassium 3.8 3.5 - 5.5 mmol/L LAB CHEMISTRY METHOD 03/01/2025 1:[address] [facility] Chloride 104 96 - 110 mmol/L LAB CHEMISTRY METHOD 03/01/2025 1:[address] [facility] CO2 21 21 - 32 mmol/L LAB CHEMISTRY METHOD 03/01/2025 1:[address] [facility] Anion Gap 14(H) 3 - 11 LAB CHEMISTRY METHOD 03/01/2025 1:[address] [facility] Glucose 344(H) 70 - 100 mg/dL LAB CHEMISTRY METHOD 03/01/2025 1:[address] [facility] BUN 11 5 - 25 mg/dL LAB CHEMISTRY METHOD 03/01/2025 1:[address] [facility] Creatinine 0.81 0.70 - 1.30 mg/dL LAB CHEMISTRY METHOD 03/01/2025 1:[address] [facility] eGFR 102 >=60 mL/min/1. 73m2 LAB CHEMISTRY METHOD 03/01/2025 1:[address] [facility] Comment:Calculation based on the Chronic Kidney Disease Epidemiology Collaboration (CKD-EPI) equation refit without adjustment for race. BUN/Creatinine Ratio 13.6 LAB CHEMISTRY METHOD 03/01/2025 1:[address] [facility] Calcium 9.0 8.5 - 10.5 mg/dL LAB CHEMISTRY METHOD 03/01/2025 1:[address] [facility] AST (SGOT) 11 10 - 42 unit/L LAB CHEMISTRY METHOD 03/01/2025 1:[address] [facility] ALT (SGPT) 33 10 - 60 unit/L LAB CHEMISTRY METHOD 03/01/2025 1:[address] [facility] Alkaline Phosphatase 151(H) 42 - 121 unit/L LAB CHEMISTRY METHOD 03/01/2025 1:[address] [facility] Total Protein 6.8 6.0 - 8.0 g/dL LAB CHEMISTRY METHOD 03/01/2025 1:[address] [facility] Albumin 3.3 3.2 - 5.0 g/dL LAB CHEMISTRY METHOD 03/01/2025 1:[address] [facility] Total Bilirubin 0.3 0.0 - 1.4 mg/dL LAB CHEMISTRY METHOD 03/01/2025 1:[address] [facility] Blood Venous blood specimen / Unknown Venipuncture / Unknown 03/01/2025 7:42 AM EDT 03/01/2025 11:32 AM EDT us Ailyn Stringer MD LAB BLOOD ORDERABLES Fin al Result [facility] [address] [place] [address], * (ABNORMAL) Complete blood count (03/01/2025 7:42 AM EDT) [facility] Signature WBC 7.9 4.8 - 10.8 K/mcL LAB HEMETOLOGY METHOD 03/01/2025 12:52 PM EDT [facility] RBC 4.70 4.50 - 5.50 M/mcL LAB HEMETOLOGY METHOD 03/01/2025 12:52 PM EDT [facility] Hemoglobin 15.1 13.5 - 17.5 g/dL LAB HEMETOLOGY METHOD 03/01/2025 12:52 PM EDT [facility] Hematocrit 43.3 42.0 - 54.0 % LAB HEMETOLOGY METHOD 03/01/2025 12:52 PM EDT [facility] MCV 92.3 79.0 - 98.0 FL LAB HEMETOLOGY METHOD 03/01/2025 12:52 PM EDT [facility] MCH 32.2(H) 27.0 - 32.0 pcg LAB HEMETOLOGY METHOD 03/01/2025 12:52 PM EDT [facility] MCHC 34.9 32.0 - 37.0 g/dL LAB HEMETOLOGY METHOD 03/01/2025 12:52 PM EDT [facility] RDW 12.4 11.0 - 15.0 % LAB HEMETOLOGY METHOD 03/01/2025 12:52 PM EDT [facility] Platelets 238 130 - 400 K/mcL LAB HEMETOLOGY METHOD 03/01/2025 12:52 PM EDT [facility] MPV 11.8(H) 7.0 - 11.0 FL LAB HEMETOLOGY METHOD 03/01/2025 12:52 PM EDT [facility] NRBC 0.0 <1.0 % LAB HEMETOLOGY METHOD 03/01/2025 12:52 PM EDT [facility] NRBC Absolute 0.00 <0.10 K/mcL LAB HEMETOLOGY METHOD 03/01/2025 12:52 PM EDT [facility] Blood Venous blood specimen / Unknown Venipuncture / Unknown 03/01/2025 7:42 AM EDT 03/01/2025 11:32 AM EDT us Ailyn Stringer MD LAB BLOOD ORDERABLES Fin al Result [facility] [address] [place] [address], documented in this encounter Visit Diagnoses Diagnosis Malignant neoplasm of brain, unspecified (CMS/HCC V24, CMS/HCC V28) documented in this encounter Care Teams Hypoid Gear Generator Relationship Specialty Start Date End Date Physician, No Pcp PCP - General 11/05/24 documented as of this encounter
--- OUTSIDE RECORDS SUMMARY | 2025-10-13 12:49 | XMS_ITS | Encounter Summary ---
Author Organization [facility] Address [address] [place] [address] Care Team Providers Care Block Making Machine Operator Name Role Phone Physician, No Pcp Primary Care Provider Unavaila ble Encounter Details Date Type Department Care Team (Late st Contact Info) Description 01/11/2025 Lab Requisition [facility] - Main Lab 299 [facility] [place] [address] Ailyn Stringer MD [address] [phone] Encounter for therapeutic drug level monitoring Social [...] Hold for add-ons. 01/12/2025 10:01 AM EST [facility] Comment:Auto resulted. Blood Venous blood specimen / Unknown Venipuncture / Unknown 01/12/2025 5:48 AM EST 01/12/2025 8:56 AM EST Ailyn Stringer MD LAB BLOOD ORDERABLES Fin al Result [facility] [address] [place] [address], * Phenytoin level free (01/12/2025 5:48 AM EST) Phenytoin, Free (Dilantin) 1.2 0.8 - 2.0 ug/mL 01/14/2025 12:08 PM EST [facility] Comment: Phenytoin free toxic level: >3.0 ug/mL If applicable, any drug confirmation testing reported here was developed and the performance characteristics determined by [facility]. This confirmation testing has not been cleared or approved by the FDA. The laboratory is regulated under CLIA as qualified to perform high-complexity testing. This test is used for patient testing purposes. It should not be regarded as investigational or for research. Test performed at [facility], [address], [place] [address] Vee Em MD, PhD - Manager Business Development Hospice Blood Venous blood specimen / Unknown Venipuncture / Unknown 01/12/2025 5:48 AM EST 01/12/2025 8:56 AM EST Ailyn Stringer MD LAB BLOOD ORDERABLES Fin al Result [facility] [address] [place] [address] documented in this encounter Visit Diagnoses Diagnosis Encounter for therapeutic drug level monitoring documented in this encounter Care Teams Block Making Machine Operator Relationship Specialty Start Date End Date Physician, No Pcp PCP - General 11/05/24 documented as of this encounter
--- OUTSIDE RECORDS SUMMARY | 2025-10-13 12:49 | XMS_ITS | Encounter Summary ---
Author Organization [facility] Address [address] [place] [address] Care Team Providers Care Research Engineer Marine Equipment Name Role Phone Physician, No Pcp Primary Care Provider Unavaila ble Encounter Details Date Type Department Care Team (Late st Contact Info) Description 01/01/2025 Lab Requisition [facility] - Main Lab 299 [facility] [place] [address] Ailyn Stringer MD [address] [phone] Encounter for therapeutic drug level monitoring Social [...] monitoring documented in this encounter Care Teams Research Engineer Marine Equipment Relationship Specialty Start Date End Date Physician, No Pcp PCP - General 11/05/24 documented as of this encounter
--- OUTSIDE RECORDS SUMMARY | 2025-10-13 12:49 | XMS_ITS | Encounter Summary ---
Author Organization [facility] Address [address] [place] [address] Care Team Providers Care Seed Potato Arranger Name Role Phone Physician, No Pcp Primary Care Provider Unavaila ble Encounter Details Date Type Department Care Team (Late st Contact Info) Description 01/30/2025 Lab Requisition [facility] - Main Lab 299 [facility] [place] [address] Ailyn Stringer MD [address] [phone] Malignant neoplasm of brain, unspecified (CMS/HCC V24, [...] mmol/L LAB CHEMISTRY METHOD 02/01/2025 12:29 PM [facility] Potassium 3.4(L) 3.5 - 5.5 mmol/L LAB CHEMISTRY METHOD 02/01/2025 12:29 PM [facility] Chloride 101 96 - 110 mmol/L LAB CHEMISTRY METHOD 02/01/2025 12:29 PM [facility] CO2 25 21 - 32 mmol/L LAB CHEMISTRY METHOD 02/01/2025 12:29 PM [facility] Anion Gap 10 3 - 11 LAB CHEMISTRY METHOD 02/01/2025 12:29 PM [facility] Glucose 355(H) 70 - 100 mg/dL LAB CHEMISTRY METHOD 02/01/2025 12:29 PM [facility] BUN 13 5 - 25 mg/dL LAB CHEMISTRY METHOD 02/01/2025 12:29 PM [facility] Creatinine 0.90 0.70 - 1.30 mg/dL LAB CHEMISTRY METHOD 02/01/2025 12:29 PM [facility] eGFR 98 >=60 mL/min/1. 73m2 LAB CHEMISTRY METHOD 02/01/2025 12:29 PM [facility] Comment:Calculation based on the Chronic Kidney Disease Epidemiology Collaboration (CKD-EPI) equation refit without adjustment for race. BUN/Creatinine Ratio 14.4 LAB CHEMISTRY METHOD 02/01/2025 12:29 PM [facility] Calcium 8.9 8.5 - 10.5 mg/dL LAB CHEMISTRY METHOD 02/01/2025 12:29 PM [facility] AST (SGOT) 17 10 - 42 unit/L LAB CHEMISTRY METHOD 02/01/2025 12:29 PM [facility] ALT (SGPT) 46 10 - 60 unit/L LAB CHEMISTRY METHOD 02/01/2025 12:29 PM [facility] Alkaline Phosphatase 154(H) 42 - 121 unit/L LAB CHEMISTRY METHOD 02/01/2025 12:29 PM [facility] Total Protein 7.0 6.0 - 8.0 g/dL LAB CHEMISTRY METHOD 02/01/2025 12:29 PM [facility] Albumin 3.5 3.2 - 5.0 g/dL LAB CHEMISTRY METHOD 02/01/2025 12:29 PM [facility] Total Bilirubin 0.2 0.0 - 1.4 mg/dL LAB CHEMISTRY METHOD 02/01/2025 12:29 PM [facility] Blood Venous blood specimen / Unknown Venipuncture / Unknown 02/01/2025 9:30 AM EDT 02/01/2025 10:53 AM EDT us Ailyn Stringer MD LAB BLOOD ORDERABLES Fin al Result [facility] [address] [place] [address], * (ABNORMAL) Complete blood count (02/01/2025 9:30 AM EDT) [facility] WBC 8.9 4.8 - 10.8 K/mcL LAB HEMETOLOGY METHOD 02/01/2025 11:47 AM EDT [facility] RBC 4.70 4.50 - 5.50 M/mcL LAB HEMETOLOGY METHOD 02/01/2025 11:47 AM EDT [facility] Hemoglobin 15.3 13.5 - 17.5 g/dL LAB HEMETOLOGY METHOD 02/01/2025 11:47 AM EDT [facility] Hematocrit 44.5 42.0 - 54.0 % LAB HEMETOLOGY METHOD 02/01/2025 11:47 AM EDT [facility] MCV 94.1 79.0 - 98.0 FL LAB HEMETOLOGY METHOD 02/01/2025 11:47 AM [facility] MCH 32.3(H) 27.0 - 32.0 pcg LAB HEMETOLOGY METHOD [facility] MCHC 34.4 32.0 - 37.0 g/dL LAB HEMETOLOGY METHOD 02/01/2025 11:47 AM EDT [facility] RDW 12.5 11.0 - 15.0 % LAB HEMETOLOGY METHOD 02/01/2025 11:47 AM EDT [facility] Platelets 263 130 - 400 K/mcL LAB HEMETOLOGY METHOD 02/01/2025 11:47 AM T [facility] MPV 10.7 7.0 - 11.0 FL LAB HEMETOLOGY METHOD 02/01/2025 11:47 AM EDT [facility] NRBC 0.0 <1.0 % LAB HEMETOLOGY METHOD 02/01/2025 11:47 AM EDT [facility] NRBC Absolute 0.00 <0.10 K/mcL LAB HEMETOLOGY METHOD 02/01/2025 11:47 AM EDT [facility] Blood Venous blood specimen / Unknown Venipuncture / Unknown 02/01/2025 9:30 AM EDT 02/01/2025 10:53 AM EDT us Ailyn Stringer MD LAB BLOOD ORDERABLES Fin al Result [facility] [address] [place] [address], documented in this encounter Visit Diagnoses Diagnosis Malignant neoplasm of brain, unspecified (CMS/HCC V24, CMS/HCC V28) documented in this encounter Care Teams Seed Potato Arranger Relationship Specialty Start Date End Date Physician, No Pcp PCP - General 11/05/24 documented as of this encounter
--- OUTSIDE RECORDS SUMMARY | 2025-10-13 12:49 | XMS_ITS | Encounter Summary ---
Author Organization [facility] Address [address] [place] [address] Care Team Providers Care Composite Bond Worker Name Role Phone Physician, No Pcp Primary Care Provider Unavaila ble Encounter Details Date Type Department Care Team (Late st Contact Info) Description 01/03/2025 Lab Requisition [facility] - Main Lab 299 [facility] [place] [address] Ailyn Stringer MD [address] [phone] Encounter for therapeutic drug level monitoring Social [...] Result [facility] [address] [place] [address], documented in this encounter Visit Diagnoses Diagnosis Encounter for therapeutic drug level monitoring documented in this encounter Care Teams Composite Bond Worker Relationship Specialty Start Date End Date Physician, No Pcp PCP - General 11/05/24 documented as of this encounter
--- OUTSIDE RECORDS SUMMARY | 2025-10-13 12:49 | XMS_ITS | Encounter Summary ---
Author Organization [facility] Address [address] [place] [address] Care Team Providers Care Junior Account Manager Name Role Phone Physician, No Pcp Primary Care Provider Unavaila ble Encounter Details Date Type Department Care Team (Late st Contact Info) Description 01/10/2025 Lab Requisition [facility] - Main Lab 299 [facility] [place] [address] Ailyn Stringer MD [address] [phone] Malignant neoplasm of brain, unspecified (CMS/HCC V24, [...] LAB CHEMISTRY METHOD 01/11/2025 1:42 PM EST [facility] Blood Venous blood specimen / Unknown Venipuncture / Unknown 01/11/2025 9:19 AM EST 01/11/2025 11:15 AM EST us Ailyn Stringer MD LAB BLOOD ORDERABLES Fin al Result [facility] [address] [place] [address], * (ABNORMAL) Comprehensive metabolic panel (01/11/2025 9:19 AM EST) Sodium 138 133 - 145 mmol/L LAB CHEMISTRY METHOD 01/11/2025 1:42 PM [facility] Potassium 3.5 3.5 - 5.5 mmol/L LAB CHEMISTRY METHOD 01/11/2025 1:42 PM [facility] Chloride 103 96 - 110 mmol/L LAB CHEMISTRY METHOD 01/11/2025 1:42 PM [facility] CO2 26 21 - 32 mmol/L LAB CHEMISTRY METHOD 01/11/2025 1:42 PM [facility] Anion Gap 9 3 - 11 LAB CHEMISTRY METHOD 01/11/2025 1:42 PM [facility] Glucose 150(H) 70 - 100 mg/dL LAB CHEMISTRY METHOD 01/11/2025 1:42 PM [facility] BUN 14 5 - 25 mg/dL LAB CHEMISTRY METHOD 01/11/2025 1:42 PM [facility] Creatinine 0.73 0.70 - 1.30 mg/dL LAB CHEMISTRY METHOD 01/11/2025 1:42 PM [facility] eGFR 105 >=60 mL/min/1. 73m2 LAB CHEMISTRY METHOD 01/11/2025 1:42 PM [facility] Comment:Calculation based on the Chronic Kidney Disease Epidemiology Collaboration (CKD-EPI) equation refit without adjustment for race. BUN/Creatinine Ratio 19.2 LAB CHEMISTRY METHOD 01/11/2025 1:42 PM [facility] Calcium 8.9 8.5 - 10.5 mg/dL LAB CHEMISTRY METHOD 01/11/2025 1:42 PM [facility] AST (SGOT) 16 10 - 42 unit/L LAB CHEMISTRY METHOD 01/11/2025 1:42 PM [facility] ALT (SGPT) 53 10 - 60 unit/L LAB CHEMISTRY METHOD 01/11/2025 1:42 PM [facility] Alkaline Phosphatase 114 42 - 121 unit/L LAB CHEMISTRY METHOD 01/11/2025 1:42 PM EST [facility] Total Protein 6.7 6.0 - 8.0 g/dL LAB CHEMISTRY METHOD 01/11/2025 1:42 PM EST [facility] Albumin 3.5 3.2 - 5.0 g/dL LAB CHEMISTRY METHOD 01/11/2025 1:42 PM EST [facility] Total Bilirubin 0.2 0.0 - 1.4 mg/dL LAB CHEMISTRY METHOD 01/11/2025 1:42 PM [facility] Blood Venous blood specimen / Unknown Venipuncture / Unknown 01/11/2025 9:19 AM EST 01/11/2025 11:15 AM EST us Ailyn Stringer MD LAB BLOOD ORDERABLES Fin al Result [facility] [address] [place] [address], * (ABNORMAL) Complete blood count (01/11/2025 9:19 AM EST) WBC 8.9 4.8 - 10.8 K/mcL LAB HEMETOLOGY METHOD 01/11/2025 1:20 PM [facility] RBC 4.70 4.50 - 5.50 M/mcL LAB HEMETOLOGY METHOD 01/11/2025 1:20 PM [facility] Hemoglobin 15.3 13.5 - 17.5 g/dL LAB HEMETOLOGY METHOD 01/11/2025 1:20 PM [facility] Hematocrit 45.5 42.0 - 54.0 % LAB HEMETOLOGY METHOD 01/11/2025 1:20 PM [facility] MCV 96.8 79.0 - 98.0 FL LAB HEMETOLOGY METHOD 01/11/2025 1:20 PM EST [facility] MCH 32.6(H) 27.0 - 32.0 pcg LAB HEMETOLOGY METHOD 01/11/2025 1:20 PM EST [facility] MCHC 33.6 32.0 - 37.0 g/dL LAB HEMETOLOGY METHOD 01/11/2025 1:20 PM EST [facility] RDW 12.4 11.0 - 15.0 % LAB HEMETOLOGY METHOD 01/11/2025 1:20 PM EST [facility] Platelets 281 130 - 400 K/mcL LAB HEMETOLOGY METHOD 01/11/2025 1:20 PM EST [facility] MPV 10.6 7.0 - 11.0 FL LAB HEMETOLOGY METHOD 01/11/2025 1:20 PM [facility] NRBC 0.0 <1.0 % LAB HEMETOLOGY METHOD 01/11/2025 1:20 PM [facility] NRBC Absolute 0.00 <0.10 K/mcL LAB HEMETOLOGY METHOD 01/11/2025 1:20 PM [facility] Blood Venous blood specimen / Unknown Venipuncture / Unknown 01/11/2025 9:19 AM EST 01/11/2025 11:15 AM EST us Ailyn Stringer MD LAB BLOOD ORDERABLES Fin al Result [facility] [address] [place] [address], documented in this encounter Visit Diagnoses Diagnosis Malignant neoplasm of brain, unspecified (CMS/HCC V24, CMS/HCC V28) Encounter for therapeutic drug level monitoring documented in this encounter Care Teams Junior Account Manager Relationship Specialty Start Date End Date Physician, No Pcp PCP - General 11/05/24 documented as of this encounter
--- OUTSIDE RECORDS SUMMARY | 2025-10-13 12:50 | XMS_ITS | Encounter Summary ---
Author Organization [facility] Address [address] [place] [address] Care Team Providers Care Disaster Recovery Coordinator Name Role Phone Physician, No Pcp Primary Care Provider Unavaila ble Encounter Details Date Type Department Care Team (Late st Contact Info) Description 04/16/2025 Lab Requisition [facility] - Main Lab 299 [facility] [place] [address] Ailyn Stringer MD [address] [phone] Malignant neoplasm of brain, unspecified (CMS/HCC V24, [...] Assessment Author No 11/06/2024 6:22 AM Jigna Chávze RN * Because of a physical, mental, [...] AM EDT Malignant neoplasm of brain, unspecified ([facility]/HCC V24, [facility] V28) COMPREHENSIVE METABOLIC PANEL Routine 04/19/2025 6:05 AM EDT Malignant neoplasm of brain, unspecified ([facility]/HCC V24, [facility]/HCC V28) documented in this encounter Results * (ABNORMAL) Comprehensive metabolic panel (04/19/2025 6:05 AM EDT) Sodium 142 133 - 145 mmol/L LAB CHEMISTRY METHOD 04/19/2025 12:43 PM [facility] Potassium 4.1 3.5 - 5.5 mmol/L LAB CHEMISTRY METHOD 04/19/2025 12:43 PM [facility] Chloride 110 96 - 110 mmol/L LAB CHEMISTRY METHOD 04/19/2025 12:43 PM [facility] CO2 23 21 - 32 mmol/L LAB CHEMISTRY METHOD 04/19/2025 12:43 PM [facility] Anion Gap 9 3 - 11 LAB CHEMISTRY METHOD 04/19/2025 12:43 PM [facility] Glucose 116(H) 70 - 100 mg/dL LAB CHEMISTRY METHOD 04/19/2025 12:43 PM [facility] BUN 16 5 - 25 mg/dL LAB CHEMISTRY METHOD 04/19/2025 12:43 PM [facility] Creatinine 0.85 0.70 - 1.30 mg/dL LAB CHEMISTRY METHOD 04/19/2025 12:43 PM [facility] eGFR 100 >=60 mL/min/1. 73m2 LAB CHEMISTRY METHOD 04/19/2025 12:43 PM [facility] Comment:Calculation based on the Chronic Kidney Disease Epidemiology Collaboration (CKD-EPI) equation refit without adjustment for race. BUN/Creatinine Ratio 18.8 LAB CHEMISTRY METHOD 04/19/2025 12:43 PM [facility] Calcium 8.5 8.5 - 10.5 mg/dL LAB CHEMISTRY METHOD 04/19/2025 12:43 PM [facility] AST (SGOT) 24 10 - 42 unit/L LAB CHEMISTRY METHOD 04/19/2025 12:43 PM [facility] ALT (SGPT) 47 10 - 60 unit/L LAB CHEMISTRY METHOD 04/19/2025 12:43 PM [facility] Alkaline Phosphatase 162(H) 42 - 121 unit/L LAB CHEMISTRY METHOD 04/19/2025 12:43 PM [facility] Total Protein 6.8 6.0 - 8.0 g/dL LAB CHEMISTRY METHOD 04/19/2025 12:43 PM [facility] Albumin 3.5 3.2 - 5.0 g/dL LAB CHEMISTRY METHOD 04/19/2025 12:43 PM [facility] Total Bilirubin 0.2 0.0 - 1.4 mg/dL LAB CHEMISTRY METHOD 04/19/2025 12:43 PM [facility] Blood Venous blood specimen / Unknown Venipuncture / Unknown 04/19/2025 6:05 AM EDT 04/19/2025 10:28 AM EDT us Ailyn Stringer MD LAB BLOOD ORDERABLES Fin al Result [facility] [address] [place] [address], * (ABNORMAL) Complete blood count (04/19/2025 6:05 AM EDT) [facility] WBC 7.6 4.8 - 10.8 K/mcL LAB HEMETOLOGY METHOD 04/19/2025 2:38 PM EDT [facility] RBC 4.60 4.50 - 5.50 M/mcL LAB HEMETOLOGY METHOD 04/19/2025 2:38 PM EDT [facility] Hemoglobin 14.6 13.5 - 17.5 g/dL LAB HEMETOLOGY METHOD 04/19/2025 2:38 PM EDT [facility] Hematocrit 46.1 42.0 - 54.0 % LAB HEMETOLOGY METHOD 04/19/2025 2:38 PM EDT [facility] MCV 99.4(H) 79.0 - 98.0 FL LAB HEMETOLOGY METHOD 04/19/2025 2:38 PM EDT [facility] MCH 31.5 27.0 - 32.0 pcg LAB HEMETOLOGY METHOD 04/19/2025 2:38 PM EDT [facility] MCHC 31.7(L) 32.0 - 37.0 g/dL LAB HEMETOLOGY METHOD 04/19/2025 2:38 PM EDT [facility] RDW 13.2 11.0 - 15.0 % LAB HEMETOLOGY METHOD 04/19/2025 2:38 PM EDT [facility] Platelets 308 130 - 400 K/mcL LAB HEMETOLOGY METHOD 04/19/2025 2:38 PM EDT [facility] MPV 10.8 7.0 - 11.0 FL LAB HEMETOLOGY METHOD 04/19/2025 2:38 PM EDT [facility] NRBC 0.0 <1.0 % LAB HEMETOLOGY METHOD 04/19/2025 2:38 PM EDT [facility] NRBC Absolute 0.00 <0.10 K/mcL LAB HEMETOLOGY METHOD 04/19/2025 2:38 PM EDT [facility] Blood Venous blood specimen / Unknown Venipuncture / Unknown 04/19/2025 6:05 AM EDT 04/19/2025 10:27 AM EDT us Ailyn Stringer MD LAB BLOOD ORDERABLES Fin al Result [facility] [address] [place] [address], documented in this encounter Visit Diagnoses Diagnosis Malignant neoplasm of brain, unspecified (CMS/HCC V24, CMS/HCC V28) documented in this encounter Care Teams Disaster Recovery Coordinator Relationship Specialty Start Date End Date Physician, No Pcp PCP - General 11/05/24 documented as of this encounter
--- OUTSIDE RECORDS SUMMARY | 2025-10-13 12:50 | XMS_ITS | Encounter Summary ---
Author Organization [facility] Address [address] [place] [address] Care Team Providers Care Press Tender Name Role Phone Physician, No Pcp Primary Care Provider Unavaila ble Encounter Details Date Type Department Care Team (Late st Contact Info) Description 12/20/2024 Lab Requisition [facility] - Main Lab 299 [facility] [place] [address] Ailyn Stringer MD [address] [phone] Malignant neoplasm of brain, unspecified (CMS/HCC V24, [...] mmol/L LAB CHEMISTRY METHOD 12/21/2024 3:10 PM [facility] Potassium 4.1 3.5 - 5.5 mmol/L LAB CHEMISTRY METHOD 12/21/2024 3:10 PM [facility] Chloride 109 96 - 110 mmol/L LAB CHEMISTRY METHOD 12/21/2024 3:10 PM [facility] CO2 24 21 - 32 mmol/L LAB CHEMISTRY METHOD 12/21/2024 3:10 PM [facility] Anion Gap 6 3 - 11 LAB CHEMISTRY METHOD 12/21/2024 3:10 PM [facility] Glucose 90 70 - 100 mg/dL LAB CHEMISTRY METHOD 12/21/2024 3:10 PM [facility] BUN 18 5 - 25 mg/dL LAB CHEMISTRY METHOD 12/21/2024 3:10 PM [facility] Creatinine 0.70 0.70 - 1.30 mg/dL LAB CHEMISTRY METHOD 12/21/2024 3:10 PM [facility] eGFR 107 >=60 mL/min/1. 73m2 LAB CHEMISTRY METHOD 12/21/2024 3:10 PM [facility] Comment:Calculation based on the Chronic Kidney Disease Epidemiology Collaboration (CKD-EPI) equation refit without adjustment for race. BUN/Creatinine Ratio 25.7 LAB CHEMISTRY METHOD 12/21/2024 3:10 PM [facility] Calcium 8.8 8.5 - 10.5 mg/dL LAB CHEMISTRY METHOD 12/21/2024 3:10 PM [facility] AST (SGOT) 20 10 - 42 unit/L LAB CHEMISTRY METHOD 12/21/2024 3:10 PM [facility] ALT (SGPT) 49 10 - 60 unit/L LAB CHEMISTRY METHOD 12/21/2024 3:10 PM [facility] Alkaline Phosphatase 109 42 - 121 unit/L LAB CHEMISTRY METHOD 12/21/2024 3:10 PM [facility] Total Protein 6.7 6.0 - 8.0 g/dL LAB CHEMISTRY METHOD 12/21/2024 3:10 PM [facility] Albumin 3.6 3.2 - 5.0 g/dL LAB CHEMISTRY METHOD 12/21/2024 3:10 PM [facility] Total Bilirubin 0.1 0.0 - 1.4 mg/dL LAB CHEMISTRY METHOD 12/21/2024 3:10 PM [facility] Blood Venous blood specimen / Unknown Venipuncture / Unknown 12/21/2024 10:23 AM EST 12/21/2024 11:20 AM EST us Ailyn Stringer MD LAB BLOOD ORDERABLES Fin al Result [facility] [address] [place] [address], * (ABNORMAL) Complete blood count (12/21/2024 10:23 AM EST) [facility] Signature WBC 6.6 4.8 - 10.8 K/mcL LAB HEMETOLOGY METHOD 12/21/2024 1:21 PM [facility] RBC 4.40(L) 4.50 - 5.50 M/mcL LAB HEMETOLOGY METHOD 12/21/2024 1:21 PM [facility] Hemoglobin 14.3 13.5 - 17.5 g/dL LAB HEMETOLOGY METHOD 12/21/2024 1:21 PM [facility] Hematocrit 42.8 42.0 - 54.0 % LAB HEMETOLOGY METHOD 12/21/2024 1:21 PM [facility] MCV 97.3 79.0 - 98.0 FL LAB HEMETOLOGY METHOD 12/21/2024 1:21 PM [facility] MCH 32.5(H) 27.0 - 32.0 pcg LAB HEMETOLOGY METHOD 12/21/2024 1:21 PM [facility] MCHC 33.4 32.0 - 37.0 g/dL LAB HEMETOLOGY METHOD 12/21/2024 1:21 PM [facility] RDW 12.6 11.0 - 15.0 % LAB HEMETOLOGY METHOD 12/21/2024 1:21 PM [facility] Platelets 278 130 - 400 K/mcL LAB HEMETOLOGY METHOD 12/21/2024 1:21 PM [facility] MPV 10.6 7.0 - 11.0 FL LAB HEMETOLOGY METHOD 12/21/2024 1:21 PM [facility] NRBC 0.0 <1.0 % LAB HEMETOLOGY METHOD 12/21/2024 1:21 PM [facility] NRBC Absolute 0.00 <0.10 K/mcL LAB HEMETOLOGY METHOD 12/21/2024 1:21 PM EST [facility] Blood Venous blood specimen / Unknown Venipuncture / Unknown 12/21/2024 10:23 AM EST 12/21/2024 11:20 AM EST us Ailyn Stringer MD LAB BLOOD ORDERABLES Fin al Result [facility] [address] [place] [address], documented in this encounter Visit Diagnoses Diagnosis Malignant neoplasm of brain, unspecified (CMS/HCC V24, CMS/HCC V28) documented in this encounter Care Teams Press Tender Relationship Specialty Start Date End Date Physician, No Pcp PCP - General 11/05/24 documented as of this encounter
--- OUTSIDE RECORDS SUMMARY | 2025-10-13 12:50 | XMS_ITS | Encounter Summary ---
Author Organization [facility] Address [address] [place] [address] Care Team Providers Care Electric Accounting Machine Operator Name Role Phone Physician, No Pcp Primary Care Provider Unavaila ble Encounter Details Date Type Department Care Team (Late st Contact Info) Description 03/21/2025 Lab Requisition [facility] - Main Lab 299 [facility] [place] [address] Ailyn Stringer MD [phone] [phone] Malignant neoplasm of brain, unspecified (CMS/HCC V24, [...] [place]/HCC V24, [facility] V28) COMPREHENSIVE METABOLIC PANEL Routine 03/22/2025 8:30 AM EDT Malignant neoplasm of brain, unspecified ([facility]/HCC V24, CMS/HCC V28) documented in this encounter Results * (ABNORMAL) Comprehensive metabolic panel (03/22/2025 8:30 AM EDT) Sodium 140 133 - 145 mmol/L LAB CHEMISTRY METHOD 03/22/2025 1:36 PM T [facility] Potassium 4.0 3.5 - 5.5 mmol/L LAB CHEMISTRY METHOD 03/22/2025 1:36 PM T [facility] Chloride 106 96 - 110 mmol/L LAB CHEMISTRY METHOD 03/22/2025 1:36 PM [facility] CO2 25 21 - 32 mmol/L LAB CHEMISTRY METHOD 03/22/2025 1:36 PM [facility] Anion Gap 9 3 - 11 LAB CHEMISTRY METHOD 03/22/2025 1:36 PM [facility] Glucose 189(H) 70 - 100 mg/dL LAB CHEMISTRY METHOD 03/22/2025 1:36 PM [facility] BUN 8 5 - 25 mg/dL LAB CHEMISTRY METHOD 03/22/2025 1:36 PM [facility] Creatinine 0.72 0.70 - 1.30 mg/dL LAB CHEMISTRY METHOD 03/22/2025 1:36 PM [facility] eGFR 105 >=60 mL/min/1. 73m2 LAB CHEMISTRY METHOD 03/22/2025 1:36 PM [facility] Comment:Calculation based on the Chronic Kidney Disease Epidemiology Collaboration (CKD-EPI) equation refit without adjustment for race. BUN/Creatinine Ratio 11.1 LAB CHEMISTRY METHOD 03/22/2025 1:36 PM [facility] Calcium 8.7 8.5 - 10.5 mg/dL LAB CHEMISTRY METHOD 03/22/2025 1:36 PM [facility] AST (SGOT) 37 10 - 42 unit/L LAB CHEMISTRY METHOD 03/22/2025 1:36 PM [facility] ALT (SGPT) 43 10 - 60 unit/L LAB CHEMISTRY METHOD 03/22/2025 1:36 PM [facility] Alkaline Phosphatase 136(H) 42 - 121 unit/L LAB CHEMISTRY METHOD 03/22/2025 1:36 PM [facility] Total Protein 6.6 6.0 - 8.0 g/dL LAB CHEMISTRY METHOD 03/22/2025 1:36 PM [facility] Albumin 3.6 3.2 - 5.0 g/dL LAB CHEMISTRY METHOD 03/22/2025 1:36 PM [facility] Total Bilirubin 0.2 0.0 - 1.4 mg/dL LAB CHEMISTRY METHOD 03/22/2025 1:36 PM [facility] Blood Venous blood specimen / Unknown Venipuncture / Unknown 03/22/2025 8:30 AM EDT 03/22/2025 12:08 PM EDT us Ailyn Stringer MD LAB BLOOD ORDERABLES Fin al Result [facility] [address] [place] [address], [place] [phone] * (ABNORMAL) Complete blood count (03/22/2025 8:30 AM EDT) [facility] WBC 6.9 4.8 - 10.8 K/mcL LAB HEMETOLOGY METHOD 03/22/2025 2:06 PM EDT [facility] RBC 4.90 4.50 - 5.50 M/mcL LAB HEMETOLOGY METHOD 03/22/2025 2:06 PM EDT [facility] Hemoglobin 15.5 13.5 - 17.5 g/dL LAB HEMETOLOGY METHOD 03/22/2025 2:06 PM EDT [facility] Hematocrit 46.2 42.0 - 54.0 % LAB HEMETOLOGY METHOD 03/22/2025 2:06 PM EDT [facility] MCV 94.7 79.0 - 98.0 FL LAB HEMETOLOGY METHOD 03/22/2025 2:06 PM EDT [facility] MCH 31.8 27.0 - 32.0 pcg LAB HEMETOLOGY METHOD 03/22/2025 2:06 PM EDT [facility] MCHC 33.5 32.0 - 37.0 g/dL LAB HEMETOLOGY METHOD 03/22/2025 2:06 PM EDT [facility] RDW 12.6 11.0 - 15.0 % LAB HEMETOLOGY METHOD 03/22/2025 2:06 PM EDT [facility] Platelets 279 130 - 400 K/mcL LAB HEMETOLOGY METHOD 03/22/2025 2:06 PM EDT [facility] MPV 11.1(H) 7.0 - 11.0 FL LAB HEMETOLOGY METHOD 03/22/2025 2:06 PM EDT [facility] NRBC 0.0 <1.0 % [facility] 03/22/2025 2:06 PM EDT [facility] NRBC Absolute 0.00 <0.10 K/mcL LAB HEMETOLOGY METHOD 03/22/2025 2:06 PM EDT [facility] Blood Venous blood specimen / Unknown Venipuncture / Unknown 03/22/2025 8:30 AM EDT 03/22/2025 12:08 PM EDT us Ailyn Stringer MD LAB BLOOD ORDERABLES Fin al Result [facility] [address] [place] [address], documented in this encounter Visit Diagnoses Diagnosis Malignant neoplasm of brain, unspecified (CMS/HCC V24, CMS/HCC V28) documented in this encounter Care Teams Electric Accounting Machine Operator Relationship Specialty Start Date End Date Physician, No Pcp PCP - General 11/05/24 documented as of this encounter
--- OUTSIDE RECORDS SUMMARY | 2025-10-13 12:50 | XMS_ITS | Encounter Summary ---
Author Organization [facility] Address [address] [place] [address] Care Team Providers Care Drafter Construction Name Role Phone Physician, No Pcp Primary Care Provider Unavaila ble Encounter Details Date Type Department Care Team (Late st Contact Info) Description 04/11/2025 Lab Requisition [facility] - Main Lab 299 [facility] [place] [address] Ailyn Stringer MD [address] [phone] Malignant neoplasm of brain, unspecified (CMS/HCC V24, [...] AM EDT Malignant neoplasm of brain, unspecified ([facility]/HCC V24, [facility] V28) COMPREHENSIVE METABOLIC PANEL Routine 04/12/2025 5:40 AM EDT Malignant neoplasm of brain, unspecified (CMS/HCC V24, CMS/HCC V28) documented in this encounter Results * Complete blood count (04/12/2025 5:46 AM EDT) WBC 8.3 4.8 - 10.8 K/mcL LAB HEMETOLOGY METHOD 04/12/2025 11:01 AM [facility] RBC 4.60 4.50 - 5.50 M/mcL LAB HEMETOLOGY METHOD 04/12/2025 11:01 AM [facility] Hemoglobin 14.3 13.5 - 17.5 g/dL LAB HEMETOLOGY METHOD 04/12/2025 11:01 AM [facility] Hematocrit 43.5 42.0 - 54.0 % LAB HEMETOLOGY METHOD 04/12/2025 11:01 AM [facility] MCV 94.2 79.0 - 98.0 FL LAB HEMETOLOGY METHOD 04/12/2025 11:01 AM EDT [facility] MCH 31.0 27.0 - 32.0 pcg LAB HEMETOLOGY METHOD 04/12[facility] MCHC 32.9 32.0 - 37.0 g/dL LAB HEMETOLOGY METHOD 04/12/2025 11:01 AM EDT [facility] RDW 13.0 11.0 - 15.0 % LAB HEMETOLOGY METHOD 04/12/2025 11:01 AM [facility] Platelets 295 130 - 400 K/mcL LAB HEMETOLOGY METHOD 04/12/2025 11:01 AM [facility] MPV 11.0 7.0 - 11.0 FL LAB HEMETOLOGY METHOD 04/12[facility]2025 [facility] NRBC 0.0 <1.0 % LAB HEMETOLOGY METHOD 04/12/2025 11:01 AM [facility] NRBC Absolute 0.00 <0.10 K/mcL LAB HEMETOLOGY METHOD 04/12/2025 11:01 AM [facility] Blood Venous blood specimen / Unknown Venipuncture / Unknown 04/12/2025 5:46 AM EDT 04/12/2025 10:14 AM EDT us Ailyn Stringer MD LAB BLOOD ORDERABLES Fin al Result [facility] [address] [place] [address], * (ABNORMAL) Comprehensive metabolic panel (04/12/2025 5:40 AM EDT) Sodium 138 133 - 145 mmol/L LAB CHEMISTRY METHOD 04/12/2025 11:52 AM EDT [facility] Potassium 4.3 3.5 - 5.5 mmol/L LAB CHEMISTRY METHOD 04/12/2025 11:52 AM [facility] Chloride 109 96 - 110 mmol/L LAB CHEMISTRY METHOD 04/12/2025 11:52 AM [facility] CO2 21 21 - 32 mmol/L LAB CHEMISTRY METHOD 04/12/2025 11:52 AM [facility] Anion Gap 8 3 - 11 LAB CHEMISTRY METHOD 04/12/2025 11:52 AM [facility] Glucose 106(H) 70 - 100 mg/dL LAB CHEMISTRY METHOD 04/12/2025 11:52 AM [facility] BUN 12 5 - 25 mg/dL LAB CHEMISTRY METHOD 04/12/2025 11:52 AM [facility] Creatinine 0.62(L) 0.70 - 1.30 mg/dL LAB CHEMISTRY METHOD 04/12/2025 11:52 AM [facility] eGFR 110 >=60 mL/min/1. 73m2 LAB CHEMISTRY METHOD 04/12/2025 11:52 AM [facility] Comment:Calculation based on the Chronic Kidney Disease Epidemiology Collaboration (CKD-EPI) equation refit without adjustment for race. BUN/Creatinine Ratio 19.4 LAB CHEMISTRY METHOD 04/12/2025 11:52 AM [facility] Calcium 8.7 8.5 - 10.5 mg/dL LAB CHEMISTRY METHOD 04/12/2025 11:52 AM [facility] AST (SGOT) 17 10 - 42 unit/L LAB CHEMISTRY METHOD 04/12/2025 11:52 AM [facility] ALT (SGPT) 40 10 - 60 unit/L LAB CHEMISTRY METHOD 04/12/2025 11:52 AM [facility] Alkaline Phosphatase 139(H) 42 - 121 unit/L LAB CHEMISTRY METHOD 04/12/2025 11:52 AM EDT [facility] Total Protein 6.6 6.0 - 8.0 g/dL LAB CHEMISTRY METHOD 04/12/2025 11:52 AM EDT [facility] Albumin 3.4 3.2 - 5.0 g/dL LAB CHEMISTRY METHOD 04/12/2025 11:52 AM T [facility] Total Bilirubin 0.2 0.0 - 1.4 mg/dL LAB CHEMISTRY METHOD 04/12/2025 11:52 AM EDT [facility] Blood Venous blood specimen / Unknown Venipuncture / Unknown 04/12/2025 5:40 AM EDT 04/12/2025 10:24 AM EDT us Ailyn Stringer MD LAB BLOOD ORDERABLES Fin al Result [facility] [address] [place] [address], documented in this encounter Visit Diagnoses Diagnosis Malignant neoplasm of brain, unspecified (CMS/HCC V24, CMS/HCC V28) documented in this encounter Care Teams Drafter Construction Relationship Specialty Start Date End Date Physician, No Pcp PCP - General 11/05/24 documented as of this encounter
--- OUTSIDE RECORDS SUMMARY | 2025-10-13 12:50 | XMS_ITS | Encounter Summary ---
Author Organization [facility] Address [address] [place] [address] Care Team Providers Care Skill Training Program Coordinator Name Role Phone Physician, No Pcp Primary Care Provider Unavaila ble Encounter Details Date Type Department Care Team (Late st Contact Info) Description 12/05/2024 Lab Requisition [facility] - Main Lab 299 [facility] [place] [address] Ailyn Stringer MD [address] [phone] Malignant neoplasm of brain, unspecified (CMS/HCC V24, [...] 11/06/2024 6:22 AM Jigna Jennings RN documented as of this encounter Mental [...] mmol/L LAB CHEMISTRY METHOD 12/07/2024 2:42 PM [facility] Potassium 3.7 3.5 - 5.5 mmol/L LAB CHEMISTRY METHOD 12/07/2024 2:42 PM [facility] Chloride 107 96 - 110 mmol/L LAB CHEMISTRY METHOD 12/07/2024 2:42 PM [facility] CO2 28 21 - 32 mmol/L LAB CHEMISTRY METHOD 12/07/2024 2:42 PM [facility] Anion Gap 4 3 - 11 LAB CHEMISTRY METHOD 12/07/2024 2:42 PM [facility] Glucose 123(H) 70 - 100 mg/dL LAB CHEMISTRY METHOD 12/07/2024 2:42 PM [facility] BUN 17 5 - 25 mg/dL LAB CHEMISTRY METHOD 12/07/2024 2:42 PM [facility] Creatinine 0.73 0.70 - 1.30 mg/dL LAB CHEMISTRY METHOD 12/07/2024 2:42 PM [facility] eGFR 105 >=60 mL/min/1. 73m2 LAB CHEMISTRY METHOD 12/07/2024 2:42 PM [facility] Comment:Calculation based on the Chronic Kidney Disease Epidemiology Collaboration (CKD-EPI) equation refit without adjustment for race. BUN/Creatinine Ratio 23.3 LAB CHEMISTRY METHOD 12/07/2024 2:42 PM [facility] Calcium 9.1 8.5 - 10.5 mg/dL LAB CHEMISTRY METHOD 12/07/2024 2:42 PM [facility] AST (SGOT) 25 10 - 42 unit/L LAB CHEMISTRY METHOD 12/07/2024 2:42 PM [facility] ALT (SGPT) 62(H) 10 - 60 unit/L LAB CHEMISTRY METHOD 12/07/2024 2:42 PM [facility] Alkaline Phosphatase 101 42 - 121 unit/L LAB CHEMISTRY METHOD 12/07/2024 2:42 PM [facility] Total Protein 6.6 6.0 - 8.0 g/dL LAB CHEMISTRY METHOD 12/07/2024 2:42 PM [facility] Albumin 3.6 3.2 - 5.0 g/dL LAB CHEMISTRY METHOD 12/07/2024 2:42 PM [facility] Total Bilirubin 0.2 0.0 - 1.4 mg/dL LAB CHEMISTRY METHOD 12/07/2024 2:42 PM [facility] Blood Venous blood specimen / Unknown Venipuncture / Unknown 12/07/2024 9:42 AM EST 12/07/2024 11:45 AM EST us Ailyn Stringer MD LAB BLOOD ORDERABLES Fin al Result [facility] [address] [place] [address], [place] [phone] * (ABNORMAL) Complete blood count (12/07/2024 9:42 AM EST) [facility] WBC 6.7 4.8 - 10.8 K/mcL LAB HEMETOLOGY METHOD 12/07/2024 2:21 PM EST [facility] RBC 4.60 4.50 - 5.50 M/mcL LAB HEMETOLOGY METHOD 12/07/2024 2:21 PM EST [facility] Hemoglobin 14.7 13.5 - 17.5 g/dL LAB HEMETOLOGY METHOD 12/07/2024 2:21 PM [facility] Hematocrit 44.6 42.0 - 54.0 % LAB HEMETOLOGY METHOD 12/07/2024 2:21 PM [facility] MCV 97.8 79.0 - 98.0 FL LAB HEMETOLOGY METHOD 12/07/2024 2:21 PM [facility] MCH 32.2(H) 27.0 - 32.0 pcg LAB HEMETOLOGY METHOD 12/07/2024 2:21 PM [facility] MCHC 33.0 32.0 - 37.0 g/dL LAB HEMETOLOGY METHOD 12/07/2024 2:21 PM [facility] RDW 12.8 11.0 - 15.0 % LAB HEMETOLOGY METHOD 12/07/2024 2:21 PM [facility] Platelets 286 130 - 400 K/mcL LAB HEMETOLOGY METHOD 12/07/2024 2:21 PM [facility] MPV 10.5 7.0 - 11.0 FL LAB HEMETOLOGY METHOD 12/07/2024 2:21 PM [facility] NRBC 0.0 <1.0 % LAB HEMETOLOGY METHOD 12/07/2024 2:21 PM [facility] NRBC Absolute 0.00 <0.10 K/[facility] LAB HEMETOLOGY METHOD 12/07/2024 2:21 PM EST [facility] Blood Venous blood specimen / Unknown Venipuncture / Unknown 12/07/2024 9:42 AM EST 12/07/2024 11:45 AM EST us Ailyn Stringer MD LAB BLOOD ORDERABLES Fin al Result [facility] [address] [place] [address], documented in this encounter Visit Diagnoses Diagnosis Malignant neoplasm of brain, unspecified (CMS/HCC V24, CMS/HCC V28) documented in this encounter Care Teams Skill Training Program Coordinator Relationship Specialty Start Date End Date Physician, No Pcp PCP - General 11/05/24 documented as of this encounter
--- OUTSIDE RECORDS SUMMARY | 2025-10-13 12:50 | XMS_ITS | Encounter Summary ---
Author Organization [facility] Address [address] [place] [address] Care Team Providers Care Watchmaking Teacher Name Role Phone Physician, No Pcp Primary Care Provider Unavaila ble Encounter Details Date Type Department Care Team (Late st Contact Info) Description 12/11/2024 Lab Requisition [facility] - Main Lab 299 [facility] [place] [address] Ailyn Stringer MD [address] [phone] Malignant neoplasm of brain, unspecified (CMS/HCC V24, [...] al Result [facility] [address] [place] [address], [place] [phone] * (ABNORMAL) Complete blood count (12/14/2024 7:40 AM EST) [facility] WBC 6.8 4.8 - 10.8 [...] LAB HEMETOLOGY METHOD 12/14/2024 12:44 PM EST [facility] Blood Venous blood specimen / Unknown 12/14/2024 7:40 AM EST 12/14/2024 11:19 AM EST us Ailyn Stringer MD LAB BLOOD ORDERABLES Fin al Result [facility] [address] [place] [address], documented in this encounter Visit Diagnoses Diagnosis Malignant neoplasm of brain, unspecified (CMS/HCC V24, CMS/HCC V28) documented in this encounter Care Teams Watchmaking Teacher Relationship Specialty Start Date End Date Physician, No Pcp PCP - General 11/05/24 documented as of this encounter
--- OUTSIDE RECORDS SUMMARY | 2025-10-13 12:50 | XMS_ITS | Encounter Summary ---
Author Organization [facility] Address [address] [place] [address] Care Team Providers Care Registration Rep Name Role Phone Physician, No Pcp Primary Care Provider Unavaila ble Encounter Details Date Type Department Care Team (Late st Contact Info) Description 12/29/2024 Lab Requisition [facility] - Main Lab 299 [facility] [place] [address] Ailyn Stringer MD [address] [phone] Other custodial (current) drug therapy Social History [...] PLAIN Routine 12/29/2024 5:47 AM EST Other custodial (current) drug therapy PHENYTOIN LEVEL, TOTAL Routine 12/29/2024 5:47 AM EST Other custodial (current) drug therapy documented in this encounter Results * Red tube (12/29/2024 5:47 AM EST) Pathologist [facility] Extra Tube Hold for add-ons. 12/29/2024 9:01 AM EST [facility] Comment:Auto resulted. Blood Venous blood specimen / Unknown Venipuncture / Unknown 12/29/2024 5:47 AM EST 12/29/2024 7:36 AM EST us Ailyn Stringer MD LAB BLOOD ORDERABLES Fin al Result [facility] [address] [place] [address], * (ABNORMAL) Phenytoin level total (12/29/2024 5:47 AM EST) Pathologist [facility] Phenytoin Level 27.6(HH) 10.0 - 20.0 mcg/mL LAB CHEMISTRY METHOD 12/29/2024 8:49 AM EST [facility] Blood Venous blood specimen / Unknown Venipuncture / Unknown 12/29/2024 5:47 AM EST 12/29/2024 7:36 AM EST us Ailyn Stringer MD LAB BLOOD ORDERABLES Fin al Result [facility] [address] [place] [address], documented in this encounter Visit Diagnoses Diagnosis Other custodial (current) drug therapy documented in this encounter Care Teams Registration Rep Relationship Specialty Start Date End Date Physician, No Pcp PCP - General 11/05/24 documented as of this encounter
--- OUTSIDE RECORDS SUMMARY | 2025-10-13 12:50 | XMS_ITS | Encounter Summary ---
Author Organization [facility] Address [address] [place] [address] Care Team Providers Care Dietetic Technician Name Role Phone Physician, No Pcp Primary Care Provider Unavaila ble Encounter Details Date Type Department Care Team (Late st Contact Info) Description 12/30/2024 Lab Requisition [facility] - Main Lab 299 [facility] [place] [address] Ailyn Stringer MD [address] [phone] Encounter for therapeutic drug level monitoring Social [...] LAB CHEMISTRY METHOD 12/31/2024 11:37 AM EST [facility] Blood Venous blood specimen / Unknown Venipuncture / Unknown 12/31/2024 5:09 AM EST 12/31/2024 10:43 AM EST us Ailyn Stringer MD LAB BLOOD ORDERABLES Fin al Result [facility] [address] [place] [address], documented in this encounter Visit Diagnoses Diagnosis Encounter for therapeutic drug level monitoring documented in this encounter Care Teams Dietetic Technician Relationship Specialty Start Date End Date Physician, No Pcp PCP - General 11/05/24 documented as of this encounter
--- OUTSIDE RECORDS SUMMARY | 2025-10-13 12:50 | XMS_ITS | Encounter Summary ---
Author Organization [facility] Address [address] [place] [address] Care Team Providers Care Cement Handler Name Role Phone Physician, No Pcp Primary Care Provider Unavaila ble Encounter Details Date Type Department Care Team (Late st Contact Info) Description 12/31/2024 Lab Requisition [facility] - Main Lab 299 [facility] [place] [address] Ailyn Stringer MD [address] [phone] Encounter for therapeutic drug level monitoring Social [...] monitoring documented in this encounter Care Teams Cement Handler Relationship Specialty Start Date End Date Physician, No Pcp PCP - General 11/05/24 documented as of this encounter
--- OUTSIDE RECORDS SUMMARY | 2025-10-13 12:50 | XMS_ITS | Encounter Summary ---
Author Organization [facility] Address [address] [place] [address] Care Team Providers Care Chief Radiologic Technologist Name Role Phone Physician, No Pcp Primary Care Provider Unavaila ble Encounter Details Date Type Department Care Team (Late st Contact Info) Description 01/01/2025 Lab Requisition [facility] - Main Lab 299 [facility] [place] [address] Ailyn Stringer MD [address] [phone] Encounter for therapeutic drug level monitoring Social [...] LAB CHEMISTRY METHOD 01/01/2025 12:30 PM EST [facility] Blood Venous blood specimen / Unknown 01/01/2025 6:06 AM EST 01/01/2025 12:15 PM EST Ailyn Stringer MD LAB BLOOD ORDERABLES Fin al Result [facility] [address] [place] [address], documented in this encounter Visit Diagnoses Diagnosis Encounter for therapeutic drug level monitoring documented in this encounter Care Teams Chief Radiologic Technologist Relationship Specialty Start Date End Date Physician, No Pcp PCP - General 11/05/24 documented as of this encounter
--- OUTSIDE RECORDS SUMMARY | 2025-10-13 12:50 | XMS_ITS | Encounter Summary ---
Author Organization [facility] Address [address] [place] [address] Care Team Providers Care Executive Creative Director Name Role Phone Physician, No Pcp Primary Care Provider Unavaila ble Encounter Details Date Type Department Care Team (Late st Contact Info) Description 04/04/2025 Lab Requisition [facility] - Main Lab 299 [facility] [place] [address] Ailyn Stringer MD [address] [phone] Malignant neoplasm of brain, unspecified (CMS/HCC V24, [...] AM EDT Malignant neoplasm of brain, unspecified ([facility]/H[facility] V24, [facility] V28) COMPREHENSIVE METABOLIC PANEL Routine 04/06/2025 9:32 AM EDT Malignant neoplasm of brain, unspecified ([facility]/HCC V24, CMS/HCC V28) documented in this encounter Results * (ABNORMAL) Comprehensive metabolic panel (04/06/2025 9:32 AM EDT) Sodium 136 133 - 145 mmol/L LAB CHEMISTRY METHOD 04/06/2025 12:30 PM [facility] Potassium 4.1 3.5 - 5.5 mmol/L LAB CHEMISTRY METHOD 04/06/2025 12:30 PM [facility] Comment:Hemolysis present Chloride 105 96 - 110 mmol/L LAB CHEMISTRY METHOD 04/06/2025 12:30 PM [facility] CO2 23 21 - 32 mmol/L LAB CHEMISTRY METHOD 04/06/2025 12:30 PM [facility] Anion Gap 8 3 - 11 LAB CHEMISTRY METHOD 04/06/2025 12:30 PM [facility] Glucose 156(H) 70 - 100 mg/dL LAB CHEMISTRY METHOD 04/06/2025 12:30 PM [facility] BUN 11 5 - 25 mg/dL LAB CHEMISTRY METHOD 04/06/2025 12:30 PM [facility] Creatinine 0.75 0.70 - 1.30 mg/dL LAB CHEMISTRY METHOD 04/06/2025 12:30 PM [facility] eGFR 104 >=60 mL/min/1. 73m2 LAB CHEMISTRY METHOD 04/06/2025 12:30 PM [facility] Comment:Calculation based on the Chronic Kidney Disease Epidemiology Collaboration (CKD-EPI) equation refit without adjustment for race. BUN/Creatinine Ratio 14.7 LAB CHEMISTRY METHOD 04/06/2025 12:30 PM [facility] Calcium 8.7 8.5 - 10.5 mg/dL LAB CHEMISTRY METHOD 04/06/2025 12:30 PM [facility] AST (SGOT) 21 10 - 42 unit/L LAB CHEMISTRY METHOD 04/06/2025 12:30 PM [facility] Comment:Hemolysis present ALT (SGPT) 39 10 - 60 unit/L LAB CHEMISTRY METHOD 04/06/2025 12:30 PM [facility] Alkaline Phosphatase 153(H) 42 - 121 unit/L LAB CHEMISTRY METHOD 04/06/2025 12:30 PM [facility] Total Protein 6.8 6.0 - 8.0 g/dL LAB CHEMISTRY METHOD 04/06/2025 12:30 PM [facility] Albumin 3.5 3.2 - 5.0 g/dL LAB CHEMISTRY METHOD 04/06/2025 12:30 PM [facility] Total Bilirubin 0.3 0.0 - 1.4 mg/dL LAB CHEMISTRY METHOD 04/06/2025 12:30 PM [facility] Blood Venous blood specimen / Unknown Venipuncture / Unknown 04/06/2025 9:32 AM EDT 04/06/2025 10:51 AM EDT us Ailyn Stringer MD LAB BLOOD ORDERABLES Fin al Result [facility] [address] [place] [address], * (ABNORMAL) Complete blood count (04/06/2025 9:32 AM EDT) WBC 6.9 4.8 - 10.8 K/mcL LAB HEMETOLOGY METHOD 04/06/2025 12:24 PM EDT [facility] RBC 4.60 4.50 - 5.50 M/mcL LAB HEMETOLOGY METHOD 04/06/2025 12:24 PM EDT [facility] Hemoglobin 14.7 13.5 - 17.5 g/dL LAB HEMETOLOGY METHOD 04/06/2025 12:24 PM EDT [facility] Hematocrit 44.5 42.0 - 54.0 % LAB HEMETOLOGY METHOD 04/06/2025 12:24 PM EDT [facility] MCV 96.9 79.0 - 98.0 FL LAB HEMETOLOGY METHOD 04/06/2025 12:24 PM EDT [facility] MCH 32.0 27.0 - 32.0 pcg LAB HEMETOLOGY METHOD 04/06/2025 12:24 PM EDT [facility] MCHC 33.0 32.0 - 37.0 g/dL LAB HEMETOLOGY METHOD 04/06/2025 12:24 PM EDT [facility] RDW 12.8 11.0 - 15.0 % LAB HEMETOLOGY METHOD 04/06/2025 12:24 PM EDT [facility] Platelets 238 130 - 400 K/mcL LAB HEMETOLOGY METHOD 04/06/2025 12:24 PM EDT [facility] MPV 11.1(H) 7.0 - 11.0 FL LAB HEMETOLOGY METHOD 04/06/2025 12:24 PM EDT [facility] NRBC 0.0 <1.0 % LAB [facility] METHOD 04/06/2025 12:24 PM EDT [facility] NRBC Absolute 0.00 <0.10 K/mcL LAB HEMETOLOGY METHOD 04/06/2025 12:24 PM EDT [facility] Blood Venous blood specimen / Unknown Venipuncture / Unknown 04/06/2025 9:32 AM EDT 04/06/2025 10:51 AM EDT us Ailyn Stringer MD LAB BLOOD ORDERABLES Fin al Result [facility] [address] [place] [address], documented in this encounter Visit Diagnoses Diagnosis Malignant neoplasm of brain, unspecified (CMS/HCC V24, CMS/HCC V28) documented in this encounter Care Teams Executive Creative Director Relationship Specialty Start Date End Date Physician, No Pcp PCP - General 11/05/24 documented as of this encounter
--- OUTSIDE RECORDS SUMMARY | 2025-10-13 12:50 | XMS_ITS | Encounter Summary ---
Author Organization [facility] Address [address] [place] [address] Care Team Providers Care Christian Science Nurse Name Role Phone Physician, No Pcp Primary Care Provider Unavaila ble Encounter Details Date Type Department Care Team (Late st Contact Info) Description 11/28/2024 Lab Requisition [facility] - Main Lab 299 [facility] [place] [address] Ailyn Stringer MD [address] [phone] Malignant neoplasm of brain, unspecified (CMS/HCC V24, [...] mmol/L LAB CHEMISTRY METHOD 11/30/2024 1:55 PM [facility] Potassium 3.6 3.5 - 5.5 mmol/L LAB CHEMISTRY METHOD 11/30/2024 1:55 PM [facility] Chloride 105 96 - 110 mmol/L LAB CHEMISTRY METHOD 11/30/2024 1:55 PM [facility] CO2 28 21 - 32 mmol/L LAB CHEMISTRY METHOD 11/30/2024 1:55 PM [facility] Anion Gap 7 3 - 11 LAB CHEMISTRY METHOD 11/30/2024 1:55 PM [facility] Glucose 123(H) 70 - 100 mg/dL LAB CHEMISTRY METHOD 11/30/2024 1:55 PM [facility] BUN 14 5 - 25 mg/dL LAB CHEMISTRY METHOD 11/30/2024 1:55 PM [facility] Creatinine 0.76 0.70 - 1.30 mg/dL LAB CHEMISTRY METHOD 11/30/2024 1:55 PM [facility] eGFR 104 >=60 mL/min/1. 73m2 LAB CHEMISTRY METHOD 11/30/2024 1:55 PM [facility] Comment:Calculation based on the Chronic Kidney Disease Epidemiology Collaboration (CKD-EPI) equation refit without adjustment for race. BUN/Creatinine Ratio 18.4 LAB CHEMISTRY METHOD 11/30/2024 1:55 PM [facility] Calcium 8.7 8.5 - 10.5 mg/dL LAB CHEMISTRY METHOD 11/30/2024 1:55 PM [facility] AST (SGOT) 23 10 - 42 unit/L LAB CHEMISTRY METHOD 11/30/2024 1:55 PM [facility] ALT (SGPT) 65(H) 10 - 60 unit/L LAB CHEMISTRY METHOD 11/30/2024 1:55 PM [facility] Alkaline Phosphatase 115 42 - 121 unit/L LAB CHEMISTRY METHOD 11/30/2024 1:55 PM [facility] Total Protein 6.5 6.0 - 8.0 g/dL LAB CHEMISTRY METHOD 11/30/2024 1:55 PM [facility] Albumin 3.5 3.2 - 5.0 g/dL LAB CHEMISTRY METHOD 11/30/2024 1:55 PM [facility] Total Bilirubin 0.2 0.0 - 1.4 mg/dL LAB CHEMISTRY METHOD 11/30/2024 1:55 PM [facility] Blood Venous blood specimen / Unknown Venipuncture / Unknown 11/30/2024 8:53 AM EST 11/30/2024 12:27 PM EST us Ailyn Stringer MD LAB BLOOD ORDERABLES Fin al Result [facility] [address] [place] [address], * (ABNORMAL) Complete blood count (11/30/2024 8:53 AM EST) [facility] WBC 6.8 4.8 - 10.8 K/mcL LAB HEMETOLOGY METHOD 11/30/2024 1:38 PM [facility] RBC 4.30(L) 4.50 - 5.50 M/mcL LAB HEMETOLOGY METHOD 11/30/2024 1:38 PM [facility] Hemoglobin 14.2 13.5 - 17.5 g/dL LAB HEMETOLOGY METHOD 11/30/2024 1:38 PM [facility] Hematocrit 43.4 42.0 - 54.0 % LAB HEMETOLOGY METHOD 11/30/2024 1:38 PM [facility] MCV 100.2(H) 79.0 - 98.0 FL LAB HEMETOLOGY METHOD 11/30/2024 1:38 PM [facility] MCH 32.8(H) 27.0 - 32.0 pcg LAB HEMETOLOGY METHOD 11/30/2024 1:38 PM [facility] MCHC 32.7 32.0 - 37.0 g/dL LAB HEMETOLOGY METHOD 11/30/2024 1:38 PM [facility] RDW 13.0 11.0 - 15.0 % LAB HEMETOLOGY METHOD 11/30/2024 1:38 PM [facility] Platelets 261 130 - 400 K/mcL LAB HEMETOLOGY METHOD 11/30/2024 1:38 PM [facility] MPV 10.8 7.0 - 11.0 FL LAB HEMETOLOGY METHOD 11/30/2024 1:38 PM [facility] NRBC 0.0 <1.0 % LAB HEMETOLOGY METHOD 11/30/2024 1:38 PM EST [facility] NRBC Absolute 0.00 <0.10 K/mcL LAB HEMETOLOGY METHOD 11/30/2024 1:38 PM EST [facility] Blood Venous blood specimen / Unknown Venipuncture / Unknown 11/30/2024 8:53 AM EST 11/30/2024 12:27 PM EST us iAlyn Stringer MD LAB BLOOD ORDERABLES Fin al Result [facility] [address] [place] [address], documented in this encounter Visit Diagnoses Diagnosis Malignant neoplasm of brain, unspecified (CMS/HCC V24, CMS/HCC V28) documented in this encounter Care Teams Christian Science Nurse Relationship Specialty Start Date End Date Physician, No Pcp PCP - General 11/05/24 documented as of this encounter
--- OUTSIDE RECORDS SUMMARY | 2025-10-13 12:50 | XMS_ITS | Encounter Summary ---
Author Organization [facility] Address [address] [place] [address] Care Team Providers Care Clinical Manager Home Care Name Role Phone Physician, No Pcp Primary Care Provider Unavaila ble Encounter Details Date Type Department Care Team (Late st Contact Info) Description 01/05/[address] [facility] - Main Lab 299 [facility] [place] [address] Ailyn Stringer MD [address] [phone] Encounter for therapeutic drug level monitoring Social [...] LAB CHEMISTRY METHOD 01/06/2025 10:55 AM EST [facility] Blood Venous blood specimen / Unknown Venipuncture / Unknown 01/06/2025 6:55 AM EST 01/06/2025 9:07 AM EST us Ailyn Stringer MD LAB BLOOD ORDERABLES Fin al Result [facility] [address] [place] [address], documented in this encounter Visit Diagnoses Diagnosis Encounter for therapeutic drug level monitoring documented in this encounter Care Teams Clinical Manager Home Care Relationship Specialty Start Date End Date Physician, No Pcp PCP - General 11/05/24 documented as of this encounter
--- OUTSIDE RECORDS SUMMARY | 2025-10-13 12:50 | XMS_ITS | Encounter Summary ---
Author Organization [facility] Address [address] [place] [address] Care Team Providers Care Spud Sorter Name Role Phone Physician, No Pcp Primary Care Provider Unavaila ble Encounter Details Date Type Department Care Team (Late st Contact Info) Description 01/01/[address] [facility] - Main Lab [address] [facility] [place] [address] Social History Tobacco Use Types [...] on filedocumented in this encounter Care Teams Spud Sorter Relationship Specialty Start Date End Date Physician, No Pcp PCP - General 11/05/24 documented as of this encounter
--- OUTSIDE RECORDS SUMMARY | 2025-10-13 12:50 | XMS_ITS | Encounter Summary ---
Author Organization [facility] Address [address] [place] [address] Care Team Providers Care Student Affairs Dean Name Role Phone Physician, No Pcp Primary Care Provider Unavaila ble Encounter Details Date Type Department Care Team (Late st Contact Info) Description 04/23/2025 Lab Requisition [facility] - Main Lab 299 [facility] [place] [address] Ailyn Stringer MD [address] [phone] Malignant neoplasm of brain, unspecified (CMS/HCC V24, [...] AM EDT Malignant neoplasm of brain, unspecified ([facility]/HCC V24, [facility] V28) COMPREHENSIVE METABOLIC PANEL Routine 04/26/2025 5:36 AM EDT Malignant neoplasm of brain, unspecified ([facility]/HCC V24, CMS/HCC V28) documented in this encounter Results * (ABNORMAL) Comprehensive metabolic panel (04/26/2025 5:36 AM EDT) Sodium 137 133 - 145 mmol/L LAB CHEMISTRY METHOD 04/26/2025 1:34 PM [facility] Potassium 3.7 3.5 - 5.5 mmol/L LAB CHEMISTRY METHOD 04/26/2025 1:34 PM [facility] Chloride 105 96 - 110 mmol/L LAB CHEMISTRY METHOD 04/26/2025 1:34 PM [facility] CO2 23 21 - 32 mmol/L LAB CHEMISTRY METHOD 04/26/2025 1:34 PM [facility] Anion Gap 9 3 - 11 LAB CHEMISTRY METHOD 04/26/2025 1:34 PM [facility] Glucose 123(H) 70 - 100 mg/dL LAB CHEMISTRY METHOD 04/26/2025 1:34 PM [facility] BUN 14 5 - 25 mg/dL LAB CHEMISTRY METHOD 04/26/2025 1:34 PM [facility] Creatinine 0.71 0.70 - 1.30 mg/dL LAB CHEMISTRY METHOD 04/26/2025 1:34 PM [facility] eGFR 106 >=60 mL/min/1. 73m2 LAB CHEMISTRY METHOD 04/26/2025 1:34 PM [facility] Comment:Calculation based on the Chronic Kidney Disease Epidemiology Collaboration (CKD-EPI) equation refit without adjustment for race. BUN/Creatinine Ratio 19.7 LAB CHEMISTRY METHOD 04/26/2025 1:34 PM [facility] Calcium 8.7 8.5 - 10.5 mg/dL LAB CHEMISTRY METHOD 04/26/2025 1:34 PM [facility] AST (SGOT) 22 10 - 42 unit/L LAB CHEMISTRY METHOD 04/26/2025 1:34 PM [facility] ALT (SGPT) 57 10 - 60 unit/L LAB CHEMISTRY METHOD 04/26/2025 1:34 PM [facility] Alkaline Phosphatase 152(H) 42 - 121 unit/L LAB CHEMISTRY METHOD 04/26/2025 1:34 PM [facility] Total Protein 6.7 6.0 - 8.0 g/dL LAB CHEMISTRY METHOD 04/26/2025 1:34 PM [facility] Albumin 3.6 3.2 - 5.0 g/dL LAB CHEMISTRY METHOD 04/26/2025 1:34 PM [facility] Total Bilirubin 0.2 0.0 - 1.4 mg/dL LAB CHEMISTRY METHOD 04/26/2025 1:34 PM [facility] Blood Venous blood specimen / Unknown Venipuncture / Unknown 04/26/2025 5:36 AM EDT 04/26/2025 10:43 AM EDT us Ailyn Stringer MD LAB BLOOD ORDERABLES Fin al Result [facility] [address] [place] [address], * Complete blood count (04/26/2025 5:36 AM EDT) [facility] WBC 6.8 4.8 - 10.8 K/mcL LAB HEMETOLOGY METHOD 04/26/2025 11:07 AM EDT [facility] RBC 4.70 4.50 - 5.50 M/mcL LAB HEMETOLOGY METHOD 04/26/2025 11:07 AM [facility] Hemoglobin 15.0 13.5 - 17.5 g/dL LAB HEMETOLOGY METHOD 04/26/2025 11:07 AM EDT [facility] Hematocrit 45.7 42.0 - 54.0 % LAB HEMETOLOGY METHOD 04/26/2025 11:07 AM T [facility] MCV 96.6 79.0 - 98.0 FL LAB HEMETOLOGY METHOD 04/26/2025 11:07 AM [facility] MCH 31.7 27.0 - 32.0 pcg LAB HEMETOLOGY METHOD 04/26/2025 11:07 AM EDT [facility] MCHC 32.8 32.0 - 37.0 g/dL LAB HEMETOLOGY METHOD 04/26/2025 11:07 AM T [facility] RDW 13.1 11.0 - 15.0 % LAB HEMETOLOGY METHOD 04/26/2025 11:07 AM [facility] Platelets 306 130 - 400 K/mcL LAB HEMETOLOGY METHOD 04/26/2025 11:07 AM [facility] MPV 10.8 7.0 - 11.0 FL LAB HEMETOLOGY METHOD 04/26/2025 11:07 AM EDT [facility] NRBC 0.0 <1.0 % LAB HEMETOLOGY METHOD 04/26/2025 11:07 AM EDT [facility] NRBC Absolute 0.00 <0.10 K/mcL LAB HEMETOLOGY METHOD 04/26/2025 11:07 AM EDT [facility] Blood Venous blood specimen / Unknown Venipuncture / Unknown 04/26/2025 5:36 AM EDT 04/26/2025 10:43 AM EDT us Ailyn Stringer MD LAB BLOOD ORDERABLES Fin al Result [facility] [address] [place] [address], documented in this encounter Visit Diagnoses Diagnosis Malignant neoplasm of brain, unspecified (CMS/HCC V24, CMS/HCC V28) documented in this encounter Care Teams Student Affairs Dean Relationship Specialty Start Date End Date Physician, No Pcp PCP - General 11/05/24 documented as of this encounter
--- OUTSIDE RECORDS SUMMARY | 2025-10-13 12:50 | XMS_ITS | Encounter Summary ---
Author Organization [facility] Address [address] [place] [address] Care Team Providers Care Senior Interaction Designer Name Role Phone Physician, No Pcp Primary Care Provider Unavaila ble Encounter Details Date Type Department Care Team (Late st Contact Info) Description 03/13/2025 Lab Requisition [facility] [place] [facility] - Main Lab 299 [facility] [place] [address] Ailyn Stringer MD [address] [phone] Malignant neoplasm of brain, unspecified (CMS/HCC V24, [...] LAB CHEMISTRY METHOD 03/15/2025 3:33 PM EDT [facility] Blood Venous blood specimen / Unknown Venipuncture / Unknown 03/15/2025 10:17 AM EDT 03/15/2025 12:51 PM EDT us Ailyn Stringer MD LAB BLOOD ORDERABLES Fin al Result [facility] [address] [place] [address], [place] [phone] * (ABNORMAL) Comprehensive metabolic panel (03/15/2025 10:17 AM EDT) Pathologist [facility] Sodium 137 133 - 145 mmol/L LAB CHEMISTRY METHOD 03/15/2025 3:33 PM EDT [facility] Potassium 3.9 3.5 - 5.5 mmol/L LAB CHEMISTRY METHOD 03/15/2025 3:[address] [facility] Chloride 106 96 - 110 mmol/L LAB CHEMISTRY METHOD 03/15/2025 3:[address] [facility] CO2 22 21 - 32 mmol/L LAB CHEMISTRY METHOD 03/15/2025 3:[address] [facility] Anion Gap 9 3 - 11 LAB CHEMISTRY METHOD 03/15/2025 3:[address] [facility] Glucose 267(H) 70 - 100 mg/dL LAB CHEMISTRY METHOD 03/15/2025 3:[address] [facility] BUN 15 5 - 25 mg/dL LAB CHEMISTRY METHOD 03/15/2025 3:[address] [facility] Creatinine 0.72 0.70 - 1.30 mg/dL LAB CHEMISTRY METHOD 03/15/2025 3:[address] [facility] eGFR 105 >=60 mL/min/1. 73m2 LAB CHEMISTRY METHOD 03/15/2025 3:[address] [facility] Comment:Calculation based on the Chronic Kidney Disease Epidemiology Collaboration (CKD-EPI) equation refit without adjustment for race. BUN/Creatinine Ratio 20.8 LAB CHEMISTRY METHOD 03/15/2025 3:33 PM EDT [facility] Calcium 8.7 8.5 - 10.5 mg/dL LAB CHEMISTRY METHOD 03/15/2025 3:33 PM EDT [facility] AST (SGOT) 17 10 - 42 unit/L LAB CHEMISTRY METHOD 03/15/2025 3:[address] [facility] ALT (SGPT) 40 10 - 60 unit/L LAB CHEMISTRY METHOD 03/15/2025 3:33 PM EDT [facility] Alkaline Phosphatase 164(H) 42 - 121 unit/L LAB CHEMISTRY METHOD 03/15/2025 3:33 PM EDT [facility] Total Protein 6.7 6.0 - 8.0 g/dL LAB CHEMISTRY METHOD [facility]25 [facility] Albumin 3.5 3.2 - 5.0 g/dL LAB CHEMISTRY METHOD 03/15/2025 3:[address] [facility] Total Bilirubin 0.2 0.0 - 1.4 mg/dL LAB CHEMISTRY METHOD 03/15/2025 3:[address] [facility] Blood Venous blood specimen / Unknown Venipuncture / Unknown 03/15/2025 10:17 AM EDT 03/15/2025 12:51 PM EDT Ailyn Stringer MD LAB BLOOD ORDERABLES Fin al Result [facility] [address] [place] [address], * (ABNORMAL) Complete blood count (03/15/2025 10:17 AM EDT) WBC 7.0 4.8 - 10.8 K/mcL LAB HEMETOLOGY METHOD 03/15/2025 2:09 PM EDT [facility] RBC 4.70 4.50 - 5.50 M/mcL LAB HEMETOLOGY METHOD 03/15/2025 2:09 PM EDT [facility] Hemoglobin 14.8 13.5 - 17.5 g/dL LAB HEMETOLOGY METHOD 03/15/2025 2:[address] [facility] Hematocrit 44.6 42.0 - 54.0 % LAB HEMETOLOGY METHOD 03/15/2025 2:[address] [facility] MCV 94.9 79.0 - 98.0 FL LAB HEMETOLOGY METHOD [facility]2025 2[facility] MCH 31.5 27.0 - 32.0 pcg LAB HEMETOLOGY METHOD 03/15/2025 2:[address] [facility] MCHC 33.2 32.0 - 37.0 g/dL LAB HEMETOLOGY METHOD 03/15/2025 2:[address] [facility] RDW 12.4 11.0 - 15.0 % LAB HEMETOLOGY METHOD 03/15/2025 2:[address] [facility] Platelets 262 130 - 400 K/mcL LAB HEMETOLOGY METHOD 03/15/2025 2:[address] [facility] MPV 11.8(H) 7.0 - 11.0 FL LAB HEMETOLOGY METHOD 03/15/2025 2:[address] [facility] NRBC 0.0 <1.0 % LAB HEMETOLOGY METHOD 03/15/2025 2:[address] [facility] NRBC Absolute 0.00 <0.10 K/mcL LAB HEMETOLOGY METHOD 03/15/2025 2:[address] [facility] Blood Venous blood specimen / Unknown Venipuncture / Unknown 03/15/2025 10:17 AM EDT 03/15/2025 12:51 PM EDT Ailyn Stringer MD LAB BLOOD ORDERABLES Fin al Result [facility] [address] [place] [address], documented in this encounter Visit Diagnoses Diagnosis Malignant neoplasm of brain, unspecified (CMS/HCC V24, CMS/HCC V28) Other seizures (CMS/HCC V24, CMS/HCC V28) documented in this encounter Care Teams Senior Interaction Designer Relationship Specialty Start Date End Date Physician, No Pcp PCP - General 11/05/24 documented as of this encounter
--- OUTSIDE RECORDS SUMMARY | 2025-10-13 12:50 | XMS_ITS | Encounter Summary ---
Author Organization [facility] Address [address] [place] [address] Care Team Providers Care Technical Support Technician Name Role Phone Physician, No Pcp Primary Care Provider Unavaila ble Encounter Details Date Type Department Care Team (Late st Contact Info) Description 03/28/2025 Lab Requisition [facility] - Main Lab [address] [facility] [place] [address] Ailyn Stringer MD [address] [phone] Malignant neoplasm of brain, unspecified (CMS/HCC V24, [facility], [facility] V28) COMPREHENSIVE METABOLIC PANEL Routine 03/29/2025 7:15 AM EDT Malignant neoplasm of brain, unspecified ([facility]/HCC V24, CMS/HCC V28) documented in this encounter [...] Fin al Result [facility] [address] [place] [address], * Complete blood count (03/29/2025 7:15 AM EDT) [facility] WBC 7.1 4.8 - 10.8 K/mcL LAB HEMETOLOGY METHOD 03/29/2025 2:36 PM EDT [facility] RBC 4.90 4.50 - 5.50 M/mcL LAB HEMETOLOGY METHOD 03/29/2025 2:36 PM EDT [facility] Hemoglobin 15.4 13.5 - 17.5 g/dL LAB HEMETOLOGY METHOD 03/29/2025 2:36 PM EDT [facility] Hematocrit 46.9 42.0 - 54.0 % LAB HEMETOLOGY METHOD 03/29/2025 2:36 PM EDT [facility] MCV 96.1 79.0 - 98.0 FL LAB HEMETOLOGY METHOD 03/29/2025 2:36 PM EDT [facility] MCH 31.6 27.0 - 32.0 pcg LAB HEMETOLOGY METHOD 03/29/2025 2:36 PM EDT [facility] MCHC 32.8 32.0 - 37.0 g/dL LAB HEMETOLOGY METHOD 03/29/2025 2:36 PM EDT [facility] RDW 12.8 11.0 - 15.0 % LAB HEMETOLOGY METHOD 03/29/2025 2:36 PM EDT [facility] Platelets 271 130 - 400 K/mcL LAB HEMETOLOGY METHOD 03/29/2025 2:36 PM EDT [facility] MPV 10.9 7.0 - 11.0 FL LAB HEMETOLOGY METHOD 03/29/2025 2:36 PM EDT [facility] NRBC 0.0 <1.0 % LAB HEMETOLOG METHOD 03/29/2025 2:36 PM EDT [facility] NRBC Absolute 0.00 <0.10 K/mcL LAB HEMETOLOGY METHOD 03/29/2025 2:36 PM EDT [facility] Blood Venous blood specimen / Unknown Venipuncture / Unknown 03/29/2025 7:15 AM EDT 03/29/2025 12:32 PM EDT us Ailyn Stringer MD LAB BLOOD ORDERABLES Fin al Result [facility] [address] [place] [address], documented in this encounter Visit Diagnoses Diagnosis Malignant neoplasm of brain, unspecified (CMS/HCC V24, CMS/HCC V28) documented in this encounter Care Teams Technical Support Technician Relationship Specialty Start Date End Date Physician, No Pcp PCP - General 11/05/24 documented as of this encounter
--- OUTSIDE RECORDS SUMMARY | 2025-10-13 12:50 | XMS_ITS | Encounter Summary ---
Author Organization [facility] Address [address] [place] [address] Care Team Providers Care Compressor Station Engineer Name Role Phone Physician, No Pcp Primary Care Provider Unavaila ble Encounter Details Date Type Department Care Team (Late st Contact Info) Description 12/29/2024 Lab Requisition [facility] - Main Lab [address] [facility] [place] [address] Ailyn Stringer MD [address] [phone] Encounter for therapeutic drug level monitoring Social [...] LAB CHEMISTRY METHOD 12/30/2024 12:[address] [facility] Blood Venous blood specimen / Unknown Venipuncture / Unknown 12/30/2024 5:42 AM EST 12/30/2024 11:24 AM EST us Ailyn Stringer MD LAB BLOOD ORDERABLES Fin al Result [facility] [address] [place] [address], documented in this encounter Visit Diagnoses Diagnosis Encounter for therapeutic drug level monitoring documented in this encounter Care Teams Compressor Station Engineer Relationship Specialty Start Date End Date Physician, No Pcp PCP - General 11/05/24 documented as of this encounter
--- OUTSIDE RECORDS SUMMARY | 2025-10-13 12:50 | XMS_ITS | Encounter Summary ---
Author Organization [facility] Address [address] [place] [address] Care Team Providers Care After School Teacher Name Role Phone Physician, No Pcp Primary Care Provider Unavaila ble Encounter Details Date Type Department Care Team (Late st Contact Info) Description 12/26/2024 Lab Requisition [facility] - Main Lab [address] [facility] [place] [address] Ailyn Stringer MD [address] [phone] Malignant neoplasm of brain, unspecified (CMS/HCC V24, [...] LAB CHEMISTRY METHOD 12/28/2024 12:11 PM EST [facility] Blood Venous blood specimen / Unknown Venipuncture / Unknown 12/28/2024 7:43 AM EST 12/28/2024 10:11 AM EST us Ailyn Stringer MD LAB BLOOD ORDERABLES Fin al Result [facility] [address] [place] [address], * (ABNORMAL) Comprehensive metabolic panel (12/28/2024 7:43 AM EST) Sodium 141 133 - 145 mmol/L LAB CHEMISTRY METHOD 12/28/2024 10:57 AM [facility] Potassium 3.7 3.5 - 5.5 mmol/L LAB CHEMISTRY METHOD 12/28/2024 10:57 AM [facility] Chloride 108 96 - 110 mmol/L LAB CHEMISTRY METHOD 12/28/2024 10:57 AM [facility] CO2 23 21 - 32 mmol/L LAB CHEMISTRY METHOD 12/28/2024 10:57 AM [facility] Anion Gap 10 3 - 11 LAB CHEMISTRY METHOD 12/28/2024 10:57 AM [facility] Glucose 210(H) 70 - 100 mg/dL LAB CHEMISTRY METHOD 12/28/2024 10:57 AM [facility] BUN 13 5 - 25 mg/dL LAB CHEMISTRY METHOD 12/28/2024 10:57 AM [facility] Creatinine 0.81 0.70 - 1.30 mg/dL LAB CHEMISTRY METHOD 12/28/2024 10:57 AM [facility] eGFR 102 >=60 mL/min/1. 73m2 LAB CHEMISTRY METHOD 12/28/2024 10:57 AM [facility] Comment:Calculation based on the Chronic Kidney Disease Epidemiology Collaboration (CKD-EPI) equation refit without adjustment for race. BUN/Creatinine Ratio 16.0 LAB CHEMISTRY METHOD 12/28/2024 10:57 AM [facility] Calcium 8.9 8.5 - 10.5 mg/dL LAB CHEMISTRY METHOD 12/28/2024 10:57 AM [facility] AST (SGOT) 25 10 - 42 unit/L LAB CHEMISTRY METHOD 12/28/2024 10:57 AM [facility] ALT (SGPT) 55 10 - 60 unit/L LAB CHEMISTRY METHOD 12/28/2024 10:57 AM [facility] Alkaline Phosphatase 101 42 - 121 unit/L LAB CHEMISTRY METHOD 12/28/2024 10:57 AM [facility] Total Protein 6.7 6.0 - 8.0 g/dL LAB CHEMISTRY METHOD 12/28/2024 10:57 AM [facility] Albumin 3.5 3.2 - 5.0 g/dL LAB CHEMISTRY METHOD 12/28/2024 10:57 AM [facility] Total Bilirubin 0.3 0.0 - 1.4 mg/dL LAB CHEMISTRY METHOD 12/28/2024 10:57 AM [facility] Blood Venous blood specimen / Unknown Venipuncture / Unknown 12/28/2024 7:43 AM EST 12/28/2024 10:11 AM EST us Ailyn Stringer MD LAB BLOOD ORDERABLES Fin al Result [facility] [address] [place] [address], * Complete blood count (12/28/2024 7:43 AM EST) WBC 6.7 4.8 - 10.8 K/mcL LAB HEMETOLOGY METHOD 12/28/2024 10:39 AM [facility] RBC 4.60 4.50 - 5.50 M/mcL LAB HEMETOLOGY METHOD 12/28/2024 10:39 AM [facility] Hemoglobin 14.7 13.5 - 17.5 g/dL LAB HEMETOLOGY METHOD 12/28/2024 10:39 AM [facility] Hematocrit 44.5 42.0 - 54.0 % LAB HEMETOLOGY METHOD 12/28/2024 10:39 AM [facility] MCV 96.7 79.0 - 98.0 FL LAB HEMETOLOGY METHOD 12/28/2024 10:39 AM EST [facility] MCH 32.0 27.0 - 32.0 pcg LAB HEMETOLOGY METHOD 12/28/2024 10:39 AM [facility] MCHC 33.0 32.0 - 37.0 g/dL LAB HEMETOLOGY METHOD 12/28/2024 10:39 AM [facility] RDW 12.4 11.0 - 15.0 % LAB HEMETOLOGY METHOD 12/28/2024 10:39 AM EST [facility] Platelets 263 130 - 400 K/mcL LAB HEMETOLOGY METHOD 12/28/2024 10:39 AM [facility] MPV 10.7 7.0 - 11.0 FL LAB HEMETOLOGY METHOD 12/28/2024 10:39 AM [facility] NRBC 0.0 <1.0 % LAB HEMETOLOGY METHOD 12/28/2024 10:39 AM [facility] NRBC Absolute 0.00 <0.10 K/mcL LAB HEMETOLOGY METHOD 12/28/2024 10:39 AM [facility] Blood Venous blood specimen / Unknown Venipuncture / Unknown 12/28/2024 7:43 AM EST 12/28/2024 10:11 AM EST us Ailyn Stringer MD LAB BLOOD ORDERABLES Fin al Result [facility] [address] [place] [address], documented in this encounter Visit Diagnoses Diagnosis Malignant neoplasm of brain, unspecified (CMS/HCC V24, CMS/HCC V28) Other seizures (CMS/HCC V24, CMS/HCC V28) documented in this encounter Care Teams After School Teacher Relationship Specialty Start Date End Date Physician, No Pcp PCP - General 11/05/24 documented as of this encounter
== END 2025-10-13 11:40 | disposition home or self-care (01) ==
LOC: HO.HOS 10:55
PROVIDERS: Visit Provider Physician Assistant
DX: S42.254D Nondisplaced fracture of greater tuberosity of right humerus, subsequent encounter for fracture with routine healing (principal)
CPT/HCPCS: 99213

== ENCOUNTER → 2025-10-13 10:57 | Outpatient (BNV) | payer MEDICARE, MEDICAID, SELFPAY | PROVIDERS: Visit Provider Radiology Diagnostic Ultrasound | DX: S42.252D Displaced fracture of greater tuberosity of left humerus, subsequent encounter for fracture with routine healing (principal) | CPT/HCPCS: 73030 ==